=== PATIENT | female | born 1985 | race Caucasian/White ===

== ENCOUNTER 2017-09-01 09:34 | Emergency (ER) | payer MEDICAID, SELFPAY ==
[2017-09-01 09:35] VITALS: BP 135/82; PULSE 98; RESP 17; TEMP 36.8; O2SAT 95; BMI 41.6
[2017-09-01] MEDS: 0.9% Normal Saline 1,000 ML 500 ML IV ×2 (10:42→11:43)
[2017-09-01] MEDS: Ondansetron 4 MG/2 ML Vial IV ×2 (10:42→12:52)
[2017-09-01 10:46] LABS: Absolute Lymphocyte Count 0.44 X10^3/ul (0.83-4.51); Absolute Neutrophil Count 6.7 X10^3/uL (2.0-7.7); Basophil# 0.01 X10^3/uL; Basophil% 0.1 % (0-1); Eosinophil# 0.03 X10^3/uL; Eosinophils% 0.4 % (0-5); Hematocrit 40.9 % (37-47); Hemoglobin 14.5 g/dl (12.0-15.0); Lymphocyte # 0.44 X10^3/ul (4.0); Lymphocyte % 5.8 % (19-41); Mean Corp Hgb Conc 35.5 g/gl (32-36); Mean Corpuscular Hgb 33.3 pg (27.0-32.0); Mean Corpuscular Volume 93.8 fL (81-99); Mean Platelet Vol. 10.1 fl (6.2-12.0); Monocyte# 0.45 X10^3/uL; Monocyte% 5.9 % (0-10); Neutrophil # 6.68 X10^3/uL (2.7-7.7); Neutrophil % 87.5 % (47-70); Platelet Count 168 K/mm3 (150-450); RBC Distribution Width CV 12.8 % (11.6-14.6); RBC Distribution Width SD 43.6 fl (35.1-43.9); Red Blood Count 4.36 M/mm3 (4.2-5.4); White Blood Count 7.6 K/mm3 (4.4-11.0)
[2017-09-01 10:47] LABS: Differential Indicated SCAN CRITERIA MET; POSITIVE COUNT NO; POSITIVE DIFFERENTIAL YES; POSITIVE MORPHOLOGY NO
[2017-09-01 11:01] LABS: Anion Gap 12 (5-15); BUN 5 mg/dL (7-18); Calcium,Total 8.5 mg/dL (8.5-10.1); Chloride 104 mmol/L (98-107); Creatinine, Serum 0.63 mg/dL (0.55-1.02); EST Glomerular Filtration Rate 119 mL/min (>60); Est Glom Filt Rate - Afr Amer 144 mL/min (>60); Estimated Creatinine Clearance 118.56 ml/min; Glucose 83 mg/dL (74-106); Lipase 95 U/L (73-393); Potassium 3.2 mmol/L (3.5-5.1); Sodium Level 137 mmol/L (136-145)
[2017-09-01 11:05] LABS: AST(SGOT) 10 U/L (15-37); Alanine Aminotransfer ALT/SGPT 15 U/L (13-56); Albumin, Serum 3.5 g/dL (3.2-5.0); Alkaline Phosphatase 71 U/L (45-117); Bilirubin, Direct 0.16 mg/dL (0.00-0.30); Globulin 3.7 g/dL (2.2-4.2); Protein, Total 7.2 g/dL (6.4-8.2)
[2017-09-01 11:19] LABS: Differential Comment SCANNED
[2017-09-01 11:40] LABS: Bacteria 0 SEEN /hpf (None Seen); Red Blood Cells-Urine 0 SEEN /hpf (0-5)
[2017-09-01 11:42] VITALS: BP 114/60; PULSE 77; RESP 16; O2SAT 100
[2017-09-01 11:42] LABS: Color, Urine Yellow (Yellow); Glucose, Dipstick Normal (Normal); Leukocyte Esterase-Dipstick 25 /ul (Negative); Nitrite-Dipstick Negative (Negative); Occult Blood-Urine 25 /ul (Negative); Protein-Dipstick 30 mg/dl (Negative); Specific Gravity, Urine 1.025 (1.002-1.030); Urine Bilirubin Dipstick Negative (Negative); Urine Clarity Clear (Clear); Urine Urobilinogen 1 mg/dl (Normal)
[2017-09-01 11:47] LABS: Ketone-Dipstick 150 mg/dl (Negative)
--- NOTE | 2017-09-01 11:47 | ED.RN ---
KETONES ELEVATED, MD AND PRIMARY NURSE AWARE.
[2017-09-01 11:52] LABS: Mucous, Urine 2+ /hpf (<or=2+); Squamous Epithelial Cells - UA 0-5 SEEN /hpf (5-10); White Blood Cells 0-5 SEEN /hpf (0-5)
--- NOTE | 2017-09-01 13:51 | ED.DCSUM_ITS ---
- ER Visit Summary Date of Service: 09/01/17 Chief Complaint: [] Vomiting and diarrhea for 5 days 14 weeks uncomplicated History of Present Illness: The patient is a 31 F [] 14 weeks uncomplicated , who reports she has had related vomiting such as morning sickness for the last 5 days her vomiting is also been associate with diarrhea runny watery stool. She has not been exposed anyone has been ill no bad food. She states she has difficulty taking p.o. despite use of her oral Phenergan. She is no history of GI elements she has no pelvic pain or vaginal bleeding she had a recent ultrasound that showed appropriately dated IUP no other acute gross abnormalities prior pregnancies were complicated by vomiting Physical Examination: [] Distress her HEENT exam is unremarkable mucous members are moist the neck is supple lungs are clear heart tones are normal abdomen soft nontender upper lower extremities unremarkable backs unremarkable skin is normal clinically she looks well she does have intermittent spitting up of clear mucus Test Results: [] Emergency Department Course and Treatment: [] Obtain screening labs or signs of dehydration on the UA she received 2 L of fluids her labs are otherwise generally unremarkable see those reports, she is feeling better she has taken 2 or 3 cups of ice without difficulty she is agreeable to discharge home to continue to use Zofran fluids and follow-up with her pharmaceutical assistant next few days Treatment Plan: [] Disposition: [] Home stable Impression: [] 14 weeks , intermittent vomiting and diarrhea improved This note was generated with [employer] dictation software. It may contain incorrect words, spelling, and punctuation that were not noted in review of the chart prior to signing ED Disposition - Plan for ED Patient: Chief Complaint: Nausea/Vomiting Referrals: Care Physician,No Primary [Primary Care Provider] -
--- NOTE | 2017-09-01 13:51 | ED.DEP ---
ED Disposition - Plan for ED Patient: Chief Complaint: Nausea/Vomiting Instructions: ED Nausea Vomiting Prescriptions: Ondansetron [Zofran Odt] 4 mg PO Q8H PRN PRN #10 tab PRN Reason: Nausea Referrals: Care Physician,No Primary [Primary Care Provider] - Additional Instructions: Please make sure you follow-up with her doctors in the next few days return for worsening symptoms
[2017-09-01 14:12] VITALS: BP 110/70; PULSE 60; RESP 12; O2SAT 100
== END 2017-09-01 14:13 | disposition home or self-care (01) ==
LOC: ED 10:11
PROVIDERS: Emergency Provider Emergency Medicine
DX: O21.8 Other vomiting complicating pregnancy (principal); O26.892 Other specified pregnancy related conditions, second trimester; R19.7 Diarrhea, unspecified; Z3A.14 14 weeks gestation of pregnancy
CPT/HCPCS: 80048; 80076; 81001; 83690; 85025; 96361; 96374; 96376; 99283; J7030; J2405

== ENCOUNTER 2017-09-01 19:18 | Emergency (ER) | payer MEDICAID, SELFPAY ==
[2017-09-01 19:18] VITALS: BP 133/79; PULSE 100; RESP 16; TEMP 37.5; O2SAT 99; BMI 40.7
--- NOTE | 2017-09-01 19:59 | ED.DCSUM_ITS ---
- ER Visit Summary Date of Service: 09/01/17 Chief Complaint: Vaginal bleeding History of Present Illness: The patient is a 31 F who is 14 weeks presents for vaginal bleeding 1 hour prior to presentation. Patient was seen in the emergency department earlier today for 4-5 days of abdominal pain, nausea , vomiting and diarrhea. She states she has had associated fever and chills. She was given fluids and had a workup done earlier today. At that time she had denied any vaginal bleeding or pelvic cramping. She states that she got home and then had an episode during urination where a large amount of blood with clots came out of her vagina. She states that she still does not feel well with the nausea, vomiting and diarrhea since she was seen this morning. Patient is on Zofran and vitamins. She denies any drug use, alcohol use or tobacco use. Physical Examination: Vital signs: afebrile, hemodynamically stable, no hypoxia on room air General: well nourished, well developed, in no distress Skin: warm, dry, no rash, no pallor HEENT: normocephalic and atraumatic; PERRL, EOMI, moist mucous membranes Cardiovascular: regular rate and rhythm without murmurs, no peripheral edema, 2 + pulses all distal extremities Respiratory: No increased work of breathing, lungs are clear to auscultation bilaterally, no rales, rhonchi or wheezing Abdominal: Abdomen is soft, mild diffusely tender with normoactive bowel sounds , no guarding or rebound, no masses MSK: Moves all extremities, no deformities, normal strength Neuro: Awake and alert, oriented ?4. No facial droop, sensation and motor function intact and symmetric Test Results: [] Emergency Department Course and Treatment: Patient's prior visit today was reviewed, and blood work was performed at that time. Patient had no leukocytosis or electrolyte derangements. Urine was negative for infection or bacteria. Because of this, blood work and urine were not repeated. A chart review showed that patient is Rh+. Thus no Rhogam is needed. Patient was given IV hydration and Phenergan for her symptoms. The pelvic exam did show mild bleeding without clots or tissue from the cervical os, with a closed os consistent with a threatened . Bedside US showed IUP with movement and FHR 188. Patient was discussed with Dr. Larose, patient visited the emergency department twice today with related concerns. he requested that the patient call the office on Sunday morning to arrange for a follow-up visit for next week. Patient was reevaluated and had had no vomiting or diarrhea while in the emergency department. She was given a prescription for Phenergan for home and is to follow-up on Sunday as directed. Patient agreed with this plan was discharged home. Treatment Plan: [] Disposition: [] Impression: Threatened This note was generated with [employer] dictation software. It may contain incorrect words, spelling, and punctuation that were not noted in review of the chart prior to signing ED Disposition - Plan for ED Patient: Disposition: Home or Assisted Living Chief Complaint: Vag Bld, Preg Instructions: ED Miscarriage Poss Prescriptions: ProMETHAzine [Phenergan] 25 mg PO Q6H PRN PRN #15 tab PRN Reason: Nausea Referrals: Marcia Vale MD [STAFF PHYSICIAN] - 2 Days Care Physician,No Primary [Primary Care Provider] - Additional Instructions: The ultrasound performed at bedside while you were in the emergency department showed your baby moving with a heart rate of between 170 and 188. Please follow-up with your OB doctor on Sunday. If you have any worsening of your condition in the meantime or any further concerns, he may return to the emergency department for another evaluation.
[2017-09-01] MEDS: Lactated Ringers 1,000 ML 999 ML IV (20:29)
--- NOTE | 2017-09-01 21:44 | ED.DEP ---
ED Disposition - Plan for ED Patient: Disposition: Home or Assisted Living Chief Complaint: Vag Bld, Preg Instructions: ED Miscarriage Poss Referrals: Care Physician,No Primary [Primary Care Provider] - Marcia Vale MD [STAFF PHYSICIAN] - 2 Days Additional Instructions: The ultrasound performed at bedside while you were in the emergency department showed your baby moving with a heart rate of between 170 and 188. Please follow-up with your OB doctor on Sunday. If you have any worsening of your condition in the meantime or any further concerns, he may return to the emergency department for another evaluation.
[2017-09-01 21:58] VITALS: PULSE 88; RESP 16; O2SAT 94
== END 2017-09-01 21:59 | disposition home or self-care (01) ==
PROVIDERS: Emergency Provider Emergency Medicine
DX: O20.0 Threatened abortion (principal); O21.8 Other vomiting complicating pregnancy; O26.892 Other specified pregnancy related conditions, second trimester; R19.7 Diarrhea, unspecified; O99.212 Obesity complicating pregnancy, second trimester; Z3A.14 14 weeks gestation of pregnancy
CPT/HCPCS: 80048; 80076; 81001; 83690; 85025; 96361; 96374; 96376; 99283; J7030; J7120; A4216; J2405

== ENCOUNTER 2017-09-03 11:59 | Inpatient (IN) | payer MEDICAID, SELFPAY ==
[2017-09-03 12:00] VITALS: BP 141/87; PULSE 90; RESP 16; TEMP 37; O2SAT 96; BMI 41.1
--- NOTE | 2017-09-03 12:48 | RAD_ITS ---
STUDY: X-RAY CHEST REASON FOR EXAM: Female, 31 years old. Nausea vomiting and diarrhea for 2 days. Patient is . The patient was shielded appropriately. TECHNIQUE: Single AP portable view of the chest. COMPARISON: None. FINDINGS: The lungs are clear and expanded. There is no demonstrated pleural abnormality. Normal size heart. Normal mediastinum and cristiana. Normal visualized pulmonary arteries. Normal visualized aortic arch and descending thoracic aorta. Normal visualized thoracic spine. Normal visualized ribs, clavicles, and shoulders. There is no demonstrated abnormality of the visualized soft tissue structures of the upper abdomen. RAD/Chest 1 View (Portable) IMPRESSION: Normal x-ray examination of the chest. Electronically Signed: Rodrigo Lieberman MD at 13:15 EST Tel [phone], Service support ,
[2017-09-03 13:05] LABS: Absolute Lymphocyte Count 0.61 X10^3/ul (0.83-4.51); Absolute Neutrophil Count 4.3 X10^3/uL (2.0-7.7); Basophil# 0.02 X10^3/uL; Basophil% 0.4 % (0-1); Hematocrit 39.2 % (37-47); Hemoglobin 14.1 g/dl (12.0-15.0); Lymphocyte # 0.61 X10^3/ul (4.0); Lymphocyte % 11.3 % (19-41); Mean Corpuscular Hgb 33.3 pg (27.0-32.0); Mean Corpuscular Volume 92.5 fL (81-99); Mean Platelet Vol. 10.5 fl (6.2-12.0); Monocyte# 0.48 X10^3/uL; Monocyte% 8.9 % (0-10); Neutrophil # 4.26 X10^3/uL (2.7-7.7); Neutrophil % 79.2 % (47-70); Platelet Count 150 K/mm3 (150-450); RBC Distribution Width CV 12.7 % (11.6-14.6); RBC Distribution Width SD 41.9 fl (35.1-43.9); Red Blood Count 4.24 M/mm3 (4.2-5.4); White Blood Count 5.4 K/mm3 (4.4-11.0)
[2017-09-03 13:06] LABS: POSITIVE COUNT NO; POSITIVE DIFFERENTIAL NO; POSITIVE MORPHOLOGY NO
[2017-09-03] MEDS: 0.9% Normal Saline 1,000 ML 1000 ML IV ×2 (13:13→14:25)
[2017-09-03 13:14] LABS: Anion Gap 12 (5-15); BUN 5 mg/dL (7-18); BUN/Creat Ratio 9.3 RATIO (10-20); Calcium,Total 8.1 mg/dL (8.5-10.1); Chloride 105 mmol/L (98-107); Creatinine, Serum 0.54 mg/dL (0.55-1.02); EST Glomerular Filtration Rate 142 mL/min (>60); Est Glom Filt Rate - Afr Amer 172 mL/min (>60); Estimated Creatinine Clearance 138.32 ml/min; Glucose 73 mg/dL (74-106); Potassium 3.2 mmol/L (3.5-5.1); Sodium Level 135 mmol/L (136-145)
[2017-09-03 14:26] VITALS: BP 116/69; PULSE 74; RESP 14; O2SAT 98
[2017-09-03 14:42] LABS: Mucous, Urine 0 SEEN /hpf (<or=2+)
[2017-09-03 14:46] LABS: Color, Urine Yellow (Yellow); Glucose, Dipstick Normal (Normal); Leukocyte Esterase-Dipstick 25 /ul (Negative); Nitrite-Dipstick Negative (Negative); Occult Blood-Urine 25 /ul (Negative); Protein-Dipstick 30 mg/dl (Negative); Specific Gravity, Urine 1.025 (1.002-1.030); Urine Bilirubin Dipstick Negative (Negative); Urine Clarity Sl. Cloudy (Clear); Urine Urobilinogen Normal (Normal)
[2017-09-03 14:48] LABS: Ketone-Dipstick 150 mg/dl (Negative)
[2017-09-03 14:53] LABS: Red Blood Cells-Urine 0-5 SEEN /hpf (0-5); Squamous Epithelial Cells - UA 10-25 SEEN /hpf (5-10); White Blood Cells 0-5 SEEN /hpf (0-5)
[2017-09-03 14:54] LABS: Bacteria 1+ /hpf (None Seen)
--- NOTE | 2017-09-03 15:37 | ED.DCSUM_ITS ---
- ER Visit Summary Date of Service: 09/03/17 Chief Complaint: Vomiting and diarrhea History of Present Illness: The patient is a 31 F presenting with vomiting and diarrhea ?9 days. She states she is unable to keep anything down. She was seen in the ED on Sunday morning was given IV fluids. She was seen again later that evening for vaginal bleeding in . She is 15 weeks . She states her daughter was diagnosed with influenza. She has been taking Tylenol, Phenergan, Zofran at home. She complains of continued vomiting , cough and body aches. She was seen by Dr. Cornelius Henderson today. She states the heart tones were normal in her office. Physical Examination: Vitals are stable. Patient is afebrile. Alert no acute distress. HEENT exam is unremarkable. Neck is supple. Lungs are clear and equal bilaterally. Heart is regular rate and rhythm. Abdomen is soft nontender nondistended. Extremities are unremarkable. Skin is warm and dry. No focal neurologic deficit. Remainder of exam is unremarkable. Emergency Department Course and Treatment: Patient was given IV fluids, Zofran, Phenergan. She continues to have nausea and vomiting. She had 2 further episodes of vomiting in the emergency department. CBC normal. Chemistries show CO2 18, glucose 73. Urinalysis unremarkable. Due to her cough, chest x- ray was obtained with shielding which shows no acute process. She has been exposed to influenza and I suspect that she has influenza. We currently have no rapid flu test available. Due to her intractable vomiting, discussed with Dr Cornelius Henderson for admission. Impression: Vomiting and diarrhea; ; suspect influenza This note was generated with [employer] dictation software. It may contain incorrect words, spelling, and punctuation that were not noted in review of the chart prior to signing ED Disposition - Plan for ED Patient: Chief Complaint: Nausea/Vomiting/Diarrhea Referrals: Care Physician,No Primary [Primary Care Provider] -
[2017-09-03] MEDS: Oseltamivir Phosphate 75 MG Capsule PO (16:18)
[2017-09-03] MEDS: 0.9% Normal Saline 1,000 ML 999 ML IV (16:19)
[2017-09-03 16:25] VITALS: BMI 41.1
[2017-09-03 16:35] VITALS: BP 138/74; PULSE 84; RESP 16; TEMP 36.9; O2SAT 100
[2017-09-03 17:59] VITALS: BMI 42.3
[2017-09-03 18:06] VITALS: BP 122/65; PULSE 81; RESP 18; TEMP 37.1; O2SAT 98
--- NOTE | 2017-09-03 18:52 | US_ITS ---
STUDY: SECOND AND THIRD TRIMESTER OBSTETRICAL ULTRASOUND - LIMITED REASON FOR EXAM: Female, 31 years old. Bleeding LMP: PRIOR ULTRASOUND: None. TECHNIQUE: Transabdominal ultrasound evaluation was performed. FINDINGS: There is a single intrauterine fetus. The fetus is in a transverse presentation. There is demonstrated cardiac activity with a heart rate of 147 bpm. There is a normal amniotic fluid volume. The largest amniotic fluid pocket measures 6.4 cm.. The placenta is low-lying There are Grade 0 placental changes. The cervix measures 4.5 cm in length. BIOMETRY: BPD: 2.6 cm: 14 weeks, 4 days HC: 10.72 cm: 15 weeks, 1 days AC: 9.1 cm: 15 weeks, 3 days FL: 1.69 cm: 15 weeks, 0 days Age by LMP: 15 weeks, 0 days. TIARA by LMP: February 25, 2018. age by prior US: weeks, days. TIARA by prior US: . age by current US: 15 weeks, 1 days. TIARA by current US: February 24, 2018. Estimated weight: 116 grams, +/- 17 grams, 47 percentile. US/OB Limited With Biometrics IMPRESSION: Viable intrauterine gestation approximately 15 weeks gestational age with fetus currently in transverse lie. Low-lying placenta which should be followed up sonographically Electronically Signed: Richard Cheng MD at 23:45 EST , Service support ,
[2017-09-03] MEDS: 0.9% NaCl Peripheral Flush Adult/Peds IV (18:58)
[2017-09-03] MEDS: Potassium Chloride 40 MEQ in Dextrose 5%/0.9% NaCl 1,000 ML 250 MEQ IV (18:58)
--- NOTE | 2017-09-03 19:30 | NURSING ---
this RN in to room to perform FHT's, patient was getting bedside US when RN entered. FHR per US was 147. Reported info to Dr Cornelius Henderson, states do not need another FHT until dayshift tomorrow.
[2017-09-03 20:36] VITALS: BP 131/80; PULSE 91; RESP 18; TEMP 36.7; O2SAT 99
[2017-09-03 20:45] LABS: Glucose, Dipstick Normal (Normal); Leukocyte Esterase-Dipstick 25 /ul (Negative); Nitrite-Dipstick Negative (Negative); Occult Blood-Urine 250 /ul (Negative); Protein-Dipstick 100 mg/dl (Negative); Specific Gravity, Urine 1.015 (1.002-1.030); Urine Bilirubin Dipstick Negative (Negative); Urine Clarity Cloudy (Clear); Urine Urobilinogen Normal (Normal)
[2017-09-03 20:45] LABS: Hematocrit 35.8 % (37-47); Hemoglobin 12.5 g/dl (12.0-15.0); Mean Corp Hgb Conc 34.9 g/gl (32-36); Mean Corpuscular Hgb 32.6 pg (27.0-32.0); Mean Corpuscular Volume 93.5 fL (81-99); Mean Platelet Vol. 10.5 fl (6.2-12.0); Platelet Count 127 K/mm3 (150-450); RBC Distribution Width CV 12.9 % (11.6-14.6); RBC Distribution Width SD 43.3 fl (35.1-43.9); Red Blood Count 3.83 M/mm3 (4.2-5.4); White Blood Count 3.6 K/mm3 (4.4-11.0)
[2017-09-03 20:48] LABS: Color, Urine SEE COMMENT BELOW (Yellow); Ketone-Dipstick 150 mg/dl (Negative)
[2017-09-03 20:52] LABS: Anion Gap 12 (5-15); BUN 5 mg/dL (7-18); BUN/Creat Ratio 13.4 RATIO (10-20); Calcium,Total 7.3 mg/dL (8.5-10.1); Chloride 110 mmol/L (98-107); Creatinine, Serum 0.37 mg/dL (0.55-1.02); EST Glomerular Filtration Rate 216 mL/min (>60); Est Glom Filt Rate - Afr Amer 262 mL/min (>60); Estimated Creatinine Clearance 201.88 ml/min; Glucose 68 mg/dL (74-106); Scan Indicated on CBC? Y/N NO; Sodium Level 137 mmol/L (136-145)
[2017-09-03] MEDS: Sodium Citrate/Citric Acid 30 ML UDC PO (20:58)
[2017-09-03] MEDS: Phenol/Sodium Phenolate 180ML 3 SPRAY MM (20:58)
--- NOTE | 2017-09-03 21:15 | NURSING ---
Marlene in Respiratory Therapy notified that Respiratory panel is ordered.
--- NOTE | 2017-09-03 22:21 | PCM.HP.OB ---
- Problem List (1) Gastroenteritis Status: Acute (2) Threatened in second trimester Status: Acute (3) 15 weeks gestation of Status: Acute (4) Dehydration Status: Acute (5) Hypokalemia Status: Acute History Date of Admission: 09/03/17 Final TIARA: 02/23/18 Final TIARA Source: US <20 weeks Gestational age: 15 Weeks and 3 Days History of this : 31yo 3 para 1999 at 15 2/7 weeks gestational age sent from the office with nausea, vomiting and ketonuria to the ED for evaluation. Patient relates onset of flu-like symptoms 8 days ago with myalgia, nausea, vomiting with worsening and diarrhea starting 4 days ago. She had fever with Tm to 102 on 08/31/17. She has been seen in the ER on 09/01/17 for symptoms and received IV fluid hydration and discharged to home. She returned to ER later that day with complaint of vaginal bleeding and bedside ultrasound in ER showed normal heart rate. She reports continued vaginal bleeding bleeding. I examined her in my office earlier today, there was no active vaginal bleeding, scant brown tinged mucus and cervix appeared closed. Denies cramping or contraction like pain. She has upper abdominal pain, back pain and muscle aches. Her daughter was diagnosed with influenza and superimposed pneumonia yesterday. Pertinent Past Medical History: Obesity Nausea and vomiting of Allergies No Known Allergies Allergy (Verified 09/03/17 12:16) Current Medications Acetaminophen (Tylenol) 1,000 mg PO Q8H PRN PRN PRN Reason: PAIN Potassium Chloride 40 meq/ (Dextrose/Sodium Chloride) 1,020 mls @ 250 mls/hr IV .Q4H5M DASHA Stop: 09/04/17 02:22 Last Admin: 09/03/17 18:58 Dose: 250 mls/hr Potassium Chloride 40 meq/Multivitamins 10 ml/ Dextrose/Sodium Chloride 1,030 mls @ 250 mls/hr IV Q24H DASHA Famotidine 20 mg/ Sodium (Chloride) 10 mls @ 300 mls/hr IV Q12 DASHA Loperamide HCl (Imodium) 2 mg PO Q6H PRN PRN PRN Reason: Diarrhea Nutritional Formula (Lactose Free) (Ensure Clear) 120 ml PO 4X/DAY DASHA Phenol/Menthol (Chloraseptic (Bkc)) 3 spray MM Q2H PRN PRN PRN Reason: SORE THROAT Last Admin: 09/03/17 20:58 Dose: 3 spray Promethazine HCl (Phenergan (Ll)) 6.25 mg IV Q4H PRN PRN PRN Reason: NAUSEA/VOMITING Last Admin: 09/03/17 18:59 Dose: 6.25 mg Sodium Chloride () 5 - 30 ml IV UD PRN PRN Reason: SALINE FLUSH Last Admin: 09/03/17 18:58 Dose: 10 ml Smoking Status: Former smoker Alcohol: None Drug Use: none Number of Fetus(es): 1 Review of Systems Constitutional: Reports: Anorexia, Chills, Fever, Night Sweats, Malaise, Weakness, Weight Change, Fatigue Cardiovascular: Reports: Light Headedness. Denies: Chest Pain, Edema Respiratory: Denies: Cough, Shortness of Breath Gastrointestinal: Reports: Abdominal Pain, Diarrhea, Nausea, Vomiting. Denies: Constipation Genitourinary: Reports: Hematuria. Denies: Dysuria, Frequency Gynecological: Reports: Vaginal bleeding, - - reports large puddle of blood on bed pad on arrival to floor - approximately 8 in wide by pt account Musculoskeletal: Reports: Back Pain, Leg Pain, Muscle pain Psychiatric: Reports: Anxiety Physical Exam Vitals: Vital Signs Temp Pulse Resp BP Pulse Ox 98.1 F 91 18 131/80 H 99 09/03/17 20:36 09/03/17 20:36 09/03/17 20:36 09/03/17 20:36 09/03/17 20:36 General: Alert, Oriented x3, Cooperative, No apparent distress Cardiovascular: Regular rate, Regular Rhythm, Normal S1, Normal S2 Lungs: Clear to auscultation, Normal air movement Abdomen: Soft, Non Tender, Non-Distended, Gravid, - - FHR wnl in office Extremities:: No edema Assessment/Plan Active and Suspected Problems Gastroenteritis (Acute) Threatened in second trimester (Acute) 15 weeks gestation of (Acute) Dehydration (Acute) Hypokalemia (Acute) 31yo with dehydration due to gastroenteritis, possibly influenza, with threatened -Admit for IV fluid hydration and electrolyte repletion -CXR negative, Influenza swab pending. Will defer Tamiflu as pt symptomatic for at least 4-5 days. -Antiemetics prn -Office exam c/w threatened Ab, no evidence of heavy bleeding on bedside exam. OB ultrasound ordered for biometry and r/o obstetric bleed.
[2017-09-03] MEDS: Acetaminophen 500 MG Tablet 1000 MG PO (22:26)
[2017-09-03] MEDS: Loperamide 2 MG Capsule PO (22:33)
[2017-09-04 02:09] VITALS: BP 133/81; PULSE 77; RESP 18; TEMP 36.4; O2SAT 99
[2017-09-04] MEDS: guaiFENesin 10 ML UDC (200MG/10ML) PO ×5 (03:39→20:27)
[2017-09-04] MEDS: Potassium Chloride 40 MEQ in Dextrose 5%/0.9% NaCl 1,000 ML 250 MEQ IV (03:40)
[2017-09-04 06:38] LABS: Absolute Lymphocyte Count 1.24 X10^3/ul (0.83-4.51); Absolute Neutrophil Count 1.6 X10^3/uL (2.0-7.7); Basophil# 0.01 X10^3/uL; Basophil% 0.3 % (0-1); Eosinophil# 0.03 X10^3/uL; Hemoglobin 12.6 g/dl (12.0-15.0); Lymphocyte # 1.24 X10^3/ul (4.0); Lymphocyte % 40.1 % (19-41); Mean Corpuscular Hgb 32.7 pg (27.0-32.0); Mean Corpuscular Volume 93.5 fL (81-99); Monocyte# 0.25 X10^3/uL; Monocyte% 8.1 % (0-10); Neutrophil # 1.56 X10^3/uL (2.7-7.7); Neutrophil % 50.5 % (47-70); Platelet Count 143 K/mm3 (150-450); RBC Distribution Width CV 13.1 % (11.6-14.6); RBC Distribution Width SD 44.1 fl (35.1-43.9); Red Blood Count 3.85 M/mm3 (4.2-5.4); White Blood Count 3.1 K/mm3 (4.4-11.0)
[2017-09-04] MEDS: Acetaminophen 500 MG Tablet 1000 MG PO ×2 (06:38→16:26)
[2017-09-04 06:46] LABS: POSITIVE COUNT NO; POSITIVE DIFFERENTIAL NO; POSITIVE MORPHOLOGY NO
[2017-09-04 06:54] LABS: Anion Gap 8 (5-15); BUN 2 mg/dL (7-18); BUN/Creat Ratio 4.1 RATIO (10-20); Calcium,Total 7.6 mg/dL (8.5-10.1); Chloride 111 mmol/L (98-107); Creatinine, Serum 0.48 mg/dL (0.55-1.02); EST Glomerular Filtration Rate 161 mL/min (>60); Est Glom Filt Rate - Afr Amer 194 mL/min (>60); Estimated Creatinine Clearance 155.61 ml/min; Glucose 87 mg/dL (74-106); Potassium 3.4 mmol/L (3.5-5.1); Sodium Level 138 mmol/L (136-145)
[2017-09-04] MEDS: 0.9% NaCl Peripheral Flush Adult/Peds IV ×4 (07:52→22:45)
[2017-09-04 07:59] VITALS: BP 113/66; PULSE 81; RESP 18; TEMP 36.6; O2SAT 98
--- NOTE | 2017-09-04 08:21 | NURSING ---
Dr. Marcia Vale notified of + influenza as well as result of US that states pt has low lying placenta and recommends follow up sonographically. states it is too late in sickness to start tamiflu and will not be beneficial. States that follow up ultrasound will be completed in [address] Antonio covering for Dr. Marcia Vale and on unit assessing patient at this time.
--- NOTE | 2017-09-04 08:32 | PCM.PROGNOTE ---
Patient Problems: Active and Suspected Problems Gastroenteritis (Acute) Threatened in second trimester (Acute) 15 weeks gestation of (Acute) Dehydration (Acute) Hypokalemia (Acute) Subjective: HD #2 15 3/7 wk EGA with N/V hyperemesis unresponsive to Zofran PO and both PO and CO Promethazine. Tested positive for Flu, but the sx started 8 d ago + And too late for tamifu CXR neg. Objective: Sitting up in bed. States tried various clears and has an assortment of empty containers on her tray, but states still vomits anything she tries. States some continued bleeding after vomiting and coughing episodes. Also c/o soreness in abdomen and back d/t N/V/coughing - Physical Exam General: Alert, Oriented x3, Cooperative, No apparent distress HEENT: Atraumatic, PERRLA Neck: Supple Abdomen: Soft - FHT documented on sono last night. Planning FHT check today, q shift. SONO last PM: viable IUP and CWD. low lying placenta but no mention of any placental pathology Neurological: Cranial nerves II-XII grossly intact Psych/Mental Status: Normal Affect Vital Signs Temp Pulse Resp BP Pulse Ox 97.8 F 81 18 113/66 98 09/04/17 07:59 09/04/17 07:59 09/04/17 07:59 09/04/17 07:59 09/04/17 07:59 Oxygen Delivery Method Room Air Weight: 115.4 kg Body Mass Index (BMI) 42.3 Intake and Output for Last 24 Hours 09/02/17 09/03/17 09/04/17 23:59 23:59 23:59 Intake Total 3580 / 3580 Output Total 1500 / 1500 Balance 2079 / 2079 Microbiology Past 72 Hours 09/03/17 22:50 Respiratory Panel (PCR) - Final Mucosa - Nose Influenza A (Subtype H3) Laboratory Tests Past 24 Hrs 09/03/17 09/03/17 09/03/17 19:17 19:17 20:35 WBC 3.6 L RBC 3.83 L Hgb 12.5 Hct 35.8 L MCV 93.5 MCH 32.6 H MCHC 34.9 RDW 12.9 RDW Differential 43.3 Plt Count 127 L MPV 10.5 Immature Gran % (Auto) Neut % (Auto) Lymph % (Auto) [place] % (Auto) Eos % (Auto) Baso % (Auto) Absolute Neuts (auto) Absolute Lymphs (auto) Total Counted Sodium 137 Potassium 3.0 L Chloride 110 H Carbon Dioxide 15.0 L Anion Gap 12 BUN 5 L Creatinine 0.37 L Estim Creat Clear Calc 201.88 Est GFR (MDRD) Af Amer 262 Est GFR (MDRD) Non-Af 216 BUN/Creatinine Ratio 13.4 Glucose 68 L Calcium 7.3 L Urine Color SEE COMMENT BELOW Urine Clarity Cloudy Urine pH 6.0 Ur Specific [place] 1.015 Urine Protein 100 H Urine Glucose (UA) Normal Urine Ketones 150 H Urine Occult Blood 250 H Urine Nitrite Negative Urine Bilirubin Negative Urine Urobilinogen Normal Ur Leukocyte Esterase 25 H 09/04/17 09/04/17 06:12 06:12 WBC 3.1 L RBC 3.85 L Hgb 12.6 Hct 36.0 L MCV 93.5 MCH 32.7 H MCHC 35.0 RDW 13.1 RDW Differential 44.1 H Plt Count 143 L MPV 10.0 Immature Gran % (Auto) 0.000 Neut % (Auto) 50.5 Lymph % (Auto) 40.1 [place] % (Auto) 8.1 Eos % (Auto) 1.0 Baso % (Auto) 0.3 Absolute Neuts (auto) 1.6 L Absolute Lymphs (auto) 1.24 Total Counted Not Reportable Sodium 138 Potassium 3.4 L Chloride 111 H Carbon Dioxide 19.0 L Anion Gap 8 BUN 2 L Creatinine 0.48 L Estim Creat Clear Calc 155.61 Est GFR (MDRD) Af Amer 194 Est GFR (MDRD) Non-Af 161 BUN/Creatinine Ratio 4.1 L Glucose 87 Calcium 7.6 L Urine Color Urine Clarity Urine pH Ur Specific [place] Urine Protein Urine Glucose (UA) Urine Ketones Urine Occult Blood Urine Nitrite Urine Bilirubin Urine Urobilinogen Ur Leukocyte Esterase Assessment/Plan Active and Suspected Problems Gastroenteritis (Acute) Threatened in second trimester (Acute) 15 weeks gestation of (Acute) Dehydration (Acute) Hypokalemia (Acute) 15 3/7 wk EGA -- intermittent bleeding d/t low lying placenta and persistent N/V and cough. Hgb stable. -- Viable iup and CWD noted on sono yesterday. continue daily wt checks. N/V/ hyperemesis of -- failed zofran and failed two forms of promethazine -- consult [facility] for home health , consider SC Zofran pump as significnat wt loss of 17-20 # documented and failure of CO, PO meds to control symptoms -- repeat UA this am for ketones and to assess hydration Hypokalemia --Partially corrected by IV fluids. Currently 3.4 (3.5 low normal) -- continue IV fluids. Convalescence of Flu. AFEB entire hospital stay thus far. -- Too late to treat with Tamiflu. -- Continue IV fluids and support. Antiemetics prn. -- RX given for Robitussin. Continue care in patient. Unable to dischg home yet due to persistent N/V.
--- NOTE | 2017-09-04 12:58 | NURSING ---
This RN called pharmacy and spoke with [facility] pharmacist. Notified him that patient was ordered Anusol hc cream and that only order found in computer is for suppository. Asked if cream is available- notified that hydrocortisone cream 2.5% is same medication as anusol hc and can be used.
--- NOTE | 2017-09-04 14:13 | NURSING ---
1030 This typewriter tester at bedside to check FHT's with doppler. FHT's ranged between 155-160 and regular
[2017-09-04 16:00] VITALS: BP 109/76; PULSE 82; RESP 18; TEMP 36.5; O2SAT 100
[2017-09-04 19:11] LABS: Bacteria 0 SEEN /hpf (None Seen); Mucous, Urine 0 SEEN /hpf (<or=2+); White Blood Cells 0 SEEN /hpf (0-5)
[2017-09-04 19:13] LABS: Color, Urine Yellow (Yellow); Glucose, Dipstick Normal (Normal); Ketone-Dipstick 15 mg/dl (Negative); Leukocyte Esterase-Dipstick Negative /ul (Negative); Nitrite-Dipstick Negative (Negative); Occult Blood-Urine 25 /ul (Negative); Protein-Dipstick Negative (Negative); Urine Bilirubin Dipstick Negative (Negative); Urine Clarity Sl. Cloudy (Clear); Urine Urobilinogen Normal (Normal)
[2017-09-04 19:25] LABS: Red Blood Cells-Urine 0-5 SEEN /hpf (0-5); Squamous Epithelial Cells - UA 0-5 SEEN /hpf (5-10)
[2017-09-04 20:15] VITALS: BP 106/63; PULSE 82; RESP 16; TEMP 36.8; O2SAT 97
[2017-09-05] MEDS: 0.9% NaCl Peripheral Flush Adult/Peds IV ×2 (04:09→08:26)
[2017-09-05] MEDS: guaiFENesin 10 ML UDC (200MG/10ML) PO ×2 (04:09→08:25)
[2017-09-05 04:15] VITALS: BP 108/72; PULSE 77; RESP 16; TEMP 36.7; O2SAT 99
--- NOTE | 2017-09-05 07:40 | PCM.PROGNOTE ---
Patient Problems: Active and Suspected Problems Gastroenteritis (Acute) Threatened in second trimester (Acute) 15 weeks gestation of (Acute) Dehydration (Acute) Hypokalemia (Acute) Subjective: HD#3 sitting up in bed, NAD. Conversant. Flat affect. States [facility] called her yesterday , made initial contact. Advised pt that referral made and that [facility] will be able to place SC Zofran pump on outpt basis. Remains worried that baby is not getting enough. Advised that baby's caloric intake not much and that baby is doing fine , even with pt's wt loss. Able to drink two Ensure supplements, taking po fluids. Vomited after oatmeal. - Physical Exam General: Alert, Oriented x3, Cooperative, No apparent distress HEENT: Atraumatic Psych/Mental Status: Flat Affect Vital Signs Temp Pulse Resp BP Pulse Ox 98.1 F 77 16 108/72 99 09/05/17 04:15 09/05/17 04:15 09/05/17 04:15 09/05/17 04:15 09/05/17 04:15 Oxygen Delivery Method Room Air Weight: 115.4 kg Body Mass Index (BMI) 42.3 Intake and Output for Last 24 Hours 09/03/17 09/04/17 09/05/17 23:59 23:59 23:59 Intake Total 4782 / 4782 1210 / 1210 Output Total 1500 / 1500 550 / 550 Balance 3282 / 3282 660 / 660 Microbiology Past 72 Hours 09/03/17 22:50 Respiratory Panel (PCR) - Final Mucosa - Nose Influenza A (Subtype H3) Laboratory Tests Past 24 Hrs 09/04/17 13:55 Urine Color Yellow Urine Clarity Sl. Cloudy Urine pH 6.0 Ur Specific [place] 1.010 Urine Protein Negative Urine Glucose (UA) Normal Urine Ketones 15 H Urine Occult Blood 25 H Urine Nitrite Negative Urine Bilirubin Negative Urine Urobilinogen Normal Ur Leukocyte Esterase Negative Urine RBC 0-5 SEEN Urine WBC 0 SEEN Ur Squamous Epith Cells 0-5 SEEN Urine Bacteria 0 SEEN Urine Mucus 0 SEEN Assessment/Plan Active and Suspected Problems Gastroenteritis (Acute) Threatened in second trimester (Acute) 15 weeks gestation of (Acute) Dehydration (Acute) Hypokalemia (Acute) HD#3 15 4/7 wk EGA -- some improvement in po intake. Able to tolerate some Ensure, and other liquids. Vomiting after some foods also. Persistent N/V and cough (making sx worse). N/V/ hyperemesis of -- Viable iup and CWD noted on sono continue daily wt checks. -- failed zofran and failed two forms of promethazine -- [facility] arranged for SC Zofran pump. Advised pt that [facility] will arrange placement and will be in contact with her on an ongoing basis for continued mgmt of hyperemesis Hypokalemia -- Partially corrected by IV fluids. Currently 3.4 (3.5 low normal) -- continue IV fluids until dischg. Convalescence of Flu. AFEB entire hospital stay thus far. -- Too late to treat with Tamiflu. -- Continue IV fluids and support. Antiemetics prn. -- RX given for Robitussin. -- rectal steroid cream bid for hemorrhoids d/t diarrhea. Dischg home today and will have [facility] place SC Zofran pump outpt. F/U with Dr Cornelius Henderson in ofc as scheduled, prn sooner.
--- NOTE | 2017-09-05 07:51 | PCM.DC ---
- Discharge Diagnoses Current Active Problems: Current Active and Chronic Problems Gastroenteritis (Acute) Threatened in second trimester (Acute) 15 weeks gestation of (Acute) Dehydration (Acute) Hypokalemia (Acute) You will use the following diet at home:: Regular - as tolerated. Discharge Activity: Return to Normal Activity - as tolerated. May resume sexual activity in: No Restrictions Weight Bearing Status: Weight bearing as tolerated - limit to under 25# while Call your doctor if you observe: Fever of 101 or Higher, Inability to have a bowel movement - uncontrolled nausea , vomiting. Also report if continued bleeding. Allergies/Adverse Reactions: Allergies No Known Allergies Allergy (Verified 09/03/17 12:16) Medications to take at Discharge Vits [Prenatabs FA] 1 tablet PO DAILY 07/11/17 Ondansetron [Zofran Odt] 4 mg PO Q8H PRN PRN #10 tab 09/01/17 ProMETHAzine [Phenergan] 25 mg PO Q6H PRN PRN #15 tab 09/01/17 Ranitidine [Zantac] 150 mg PO BID 09/03/17 Docusate Sodium [Colace] 100 mg PO BID #60 cap 09/05/17 Polyethylene Glycol 3350 [Miralax] 17 gm PO DAILY 30 Days #30 packet 09/05/17 The following prescriptions were given: Polyethylene Glycol 3350 [Miralax] 17 gm PO DAILY 30 Days #30 packet Docusate Sodium [Colace] 100 mg PO BID #60 cap Primary Care Physician: Care Physician,No Primary [Primary Care Provider] -
[2017-09-05 08:21] VITALS: BP 108/64; PULSE 87; RESP 18; TEMP 36.6; O2SAT 99
[2017-09-05] MEDS: Acetaminophen 500 MG Tablet 1000 MG PO (08:25)
--- NOTE | 2017-09-07 12:46 | DS.PCM_ITS ---
Discharge Date and Diagnosis Date of Admission: 09/03/17 - 15 wk hyperemesis and flu Date of Discharge: 09/05/17 - same Hospital Course and Treatment Operations: None Summary of Care Provided: The patient is a 31 year old F at 15 wk EGA presents through ED with CC of N/V/ diarrhea. Dehydration. Sx worse than normal for her in last few days. She has been ill for last 8 d and with hyperemesis of also. Multiple ER visits for same sx, and IV fluids given. Admitted for IV hydration. Testing for flu. Serial UAs to determine if dehydration and ketonuria persistent. CBC, and CMP also COURSE: IV fluids until day of dischg but by day of dischg able to tolerate liquids Tested positive for flu but too late for tamiflu to be given/ effective. 15 wk hyperemesis and 17+ lb wt loss : Referred to outpatient [facility] for SC Zofran pump given multiple hospital visits for IV hydration. Failure of outpt meds. Discharge Activity: Return to Normal Activity - as tolerated. May resume sexual activity in: No Restrictions Weight Bearing Status: Weight bearing as tolerated - limit to under 25# while Call your doctor if you observe: Fever of 101 or Higher, Inability to have a bowel movement - uncontrolled nausea , vomiting. Also report if continued bleeding. Home Medications: Medications to take at Discharge Vits [Prenatabs FA] 1 tablet PO DAILY 07/11/17 Ondansetron [Zofran Odt] 4 mg PO Q8H PRN PRN #10 tab 09/01/17 ProMETHAzine [Phenergan] 25 mg PO Q6H PRN PRN #15 tab 09/01/17 Ranitidine [Zantac] 150 mg PO BID 09/03/17 Docusate Sodium [Colace] 100 mg PO BID #60 cap 09/05/17 Polyethylene Glycol 3350 [Miralax] 17 gm PO DAILY 30 Days #30 packet 09/05/17 Following Prescrptions Were Given to Patient: Polyethylene Glycol 3350 [Miralax] 17 gm PO DAILY 30 Days #30 packet Docusate Sodium [Colace] 100 mg PO BID #60 cap Primary Care Physician: Care Physician,No Primary [Primary Care Provider] - Meaningful Use Info Meaningful Use Diagnoses (Choose all that apply): None applicable
== END 2017-09-05 08:55 | disposition home or self-care (01) | DRG 383 ==
LOC: ED 13:15 → MS2 09-04 06:09
PROVIDERS: Admitting Provider Obstetrics & Gynecology; Emergency Provider Emergency Medicine; Visit Provider Obstetrics & Gynecology
DX: O99.282 Endocrine, nutritional and metabolic diseases complicating pregnancy, second trimester (principal); Z68.41 Body mass index [BMI] 40.0-44.9, adult; E86.0 Dehydration; Z3A.15 15 weeks gestation of pregnancy; E87.6 Hypokalemia; O20.0 Threatened abortion; K52.9 Noninfective gastroenteritis and colitis, unspecified; O99.612 Diseases of the digestive system complicating pregnancy, second trimester; O99.212 Obesity complicating pregnancy, second trimester; Z87.891 Personal history of nicotine dependence; E66.9 Obesity, unspecified
CPT/HCPCS: 36415; 71045; 76816; 80048; 81001; 81002; 85025; 85027; 87633; 97802; 99284; J7030; J7040; A4216; J2405; J3490

== ENCOUNTER → 2017-09-12 15:28 | Outpatient (CLI) | payer MEDICAID, SELFPAY ==
[2017-09-12 16:19] LABS: Hematocrit 37.8 % (37-47); Mean Corp Hgb Conc 34.4 g/gl (32-36); Mean Corpuscular Hgb 32.2 pg (27.0-32.0); Mean Corpuscular Volume 93.6 fL (81-99); Mean Platelet Vol. 10.3 fl (6.2-12.0); Platelet Count 179 K/mm3 (150-450); RBC Distribution Width CV 12.7 % (11.6-14.6); RBC Distribution Width SD 43.3 fl (35.1-43.9); Red Blood Count 4.04 M/mm3 (4.2-5.4); White Blood Count 8.5 K/mm3 (4.4-11.0)
[2017-09-12 16:21] LABS: Scan Indicated on CBC? Y/N NO
[2017-09-12 16:57] LABS: ALB/GLOB Ratio 0.8 RATIO (0.9-2.4); AST(SGOT) 8 U/L (15-37); Alanine Aminotransfer ALT/SGPT 11 U/L (13-56); Albumin, Serum 3.2 g/dL (3.2-5.0); Alkaline Phosphatase 74 U/L (45-117); Anion Gap 8 (5-15); BUN 3 mg/dL (7-18); BUN/Creat Ratio 5.6 RATIO (10-20); Calcium,Total 8.7 mg/dL (8.5-10.1); Chloride 103 mmol/L (98-107); Creatinine, Serum 0.54 mg/dL (0.55-1.02); EST Glomerular Filtration Rate 142 mL/min (>60); Est Glom Filt Rate - Afr Amer 172 mL/min (>60); Globulin 3.8 g/dL (2.2-4.2); Glucose 81 mg/dL (74-106); Potassium 3.6 mmol/L (3.5-5.1); Sodium Level 137 mmol/L (136-145)
[2017-09-14 16:28] LABS: Amylase 47 U/L (25-115); Lipase 107 U/L (73-393)
== END ==
PROVIDERS: Visit Provider Obstetrics & Gynecology
DX: R19.7 Diarrhea, unspecified (principal)
CPT/HCPCS: 36415; 80053; 82150; 83690; 85027

== ENCOUNTER → 2017-09-13 08:24 | Outpatient (CLI) | payer MEDICAID, SELFPAY | PROVIDERS: Visit Provider Obstetrics & Gynecology | DX: R19.7 Diarrhea, unspecified (principal) | CPT/HCPCS: 87493; 87506 ==

== ENCOUNTER → 2017-09-17 13:25 | Outpatient (CLI) | payer MEDICAID, SELFPAY | PROVIDERS: Visit Provider Obstetrics & Gynecology | DX: Z34.82 Encounter for supervision of other normal pregnancy, second trimester (principal); N39.0 Urinary tract infection, site not specified; R19.7 Diarrhea, unspecified | CPT/HCPCS: 87086; 87088 ==

== ENCOUNTER → 2017-09-18 09:41 | Outpatient (CLI) | payer MEDICAID, SELFPAY | PROVIDERS: Visit Provider Obstetrics & Gynecology | DX: Z34.82 Encounter for supervision of other normal pregnancy, second trimester (principal); N39.0 Urinary tract infection, site not specified; R19.7 Diarrhea, unspecified | CPT/HCPCS: 82274; 87177; 87209; 87493 ==

== ENCOUNTER 2017-09-20 02:45 | Emergency (ER) | payer MEDICAID, SELFPAY ==
[2017-09-20 02:46] VITALS: BP 131/83; PULSE 105; RESP 18; TEMP 36.5; O2SAT 98; BMI 40.3
--- NOTE | 2017-09-20 02:49 | NURSING ---
Addendum entered by Opal Gao 09/20/17 02:56: 18-19 WEEKS Original Note: PT HAS BEEN SPOT BLEEDING FOR PPROX 2 WEEKS, BUT REGULAR BLEEDING STARTED LAST NIGHT AND HAS CONTINUED. NOTED WHITE DISCHARGE EARLIER IN THE EVENING.
--- NOTE | 2017-09-20 03:18 | ED.DCSUM_ITS ---
- ER Visit Summary Date of Service: 09/20/17 Chief Complaint: Vaginal bleeding History of Present Illness: The patient is a [address] Danette Henderson. She is a 17 weeks and 3 days . She reports that she has had spotting off and on for the past 2 weeks. It increased at 7 PM yesterday. She has gone through 2 pantiliners in the past 5 hours. She reports that she has sharp cramping abdominal pain on the far lateral sides of her abdomen that is 10 out of 10 at worst and 8 out of 10 currently. Physical Examination: Vitals: Stable. Afebrile. General: Well-nourished and well-developed. Head: Normocephalic atraumatic. Neck: Supple, no lymphadenopathy. No JVD. Nontender. Cardiovascular: Regular rate and rhythm. No murmurs. Respiratory: No respiratory distress. Clear to auscultation bilaterally. Abdominal: Gravid uterus. Soft, mild tenderness palpation to the far lateral part shins of her lower abdomen bilaterally, no pain at McBurney's point or in the suprapubic region, no pain in the right upper quadrant nondistended, normal bowel sounds. No guarding, rebound, or peritoneal signs. Back: Nontender. Extremities: Nontender, no edema. Skin: Normal color, no rash. Neurologic: Alert and oriented ?3. Cranial nerves II through XII are intact. Normal strength and sensation. Psych: Normal affect. Test Results: Blood type is O+. Emergency Department Course and Treatment: Bedside ultrasound shows good movement and heartbeat. Treatment Plan: The patient is discussed with Dr. Larose. She will be discharged instructions to follow-up with Dr. Cornelius Henderson 1-2 days for another exam. Return to the emergency department for any worsening symptoms. Disposition: To home in improved and stable condition. Impression: 1. Threatened . 2. Second trimester . This note was generated with Electro[employer] software. It may contain incorrect words, spelling, and punctuation that were not noted in review of the chart prior to signing ED Disposition - Plan for ED Patient: Chief Complaint: Vag Bld, Preg Instructions: Bleeding During Early Referrals: Marcia Vale MD [STAFF PHYSICIAN] - 1 Day for another exam
[2017-09-20 03:35] VITALS: RESP 16
== END 2017-09-20 03:36 | disposition home or self-care (01) ==
LOC: ED 03:27
PROVIDERS: Emergency Provider Emergency Medicine
DX: O20.0 Threatened abortion (principal); O99.332 Smoking (tobacco) complicating pregnancy, second trimester; Z3A.17 17 weeks gestation of pregnancy
CPT/HCPCS: 99282

== ENCOUNTER 2017-09-21 18:10 | Outpatient (CLI) | payer MEDICAID, SELFPAY ==
[2017-09-21 18:57] VITALS: BMI 40.6
--- NOTE | 2017-09-21 19:45 | OB.TRI.NOTE ---
History of Present Illness Date of Service: 09/21/17 Was patient seen by the physician?: Yes Reason For Visit: R/O PPROM Date of Service: 09/21/17 Final TIARA: 02/24/18 Final TIARA Source: US <20 weeks Gestational age: 17 Weeks and 5 Days Home Medications Medication Instructions Recorded Vits [Prenatabs FA] 1 tablet PO DAILY 07/11/17 Ondansetron [Zofran Odt] 4 mg PO Q8H PRN PRN #10 tab 09/01/17 ProMETHAzine [Phenergan] 25 mg PO Q6H PRN PRN #15 tab 09/01/17 Ranitidine [Zantac] 150 mg PO BID 09/03/17 Polyethylene Glycol 3350 [Miralax] 17 gm PO DAILY 30 Days #30 packet 09/05/17 Docusate Sodium [Colace] 100 mg PO PRN PRN 09/21/17 Allergies No Known Allergies Allergy (Verified 09/21/17 18:57) Physical Exam Vitals: AVSS General: Alert, Oriented x3, Cooperative, No apparent distress Cardiovascular: Regular rate, Regular Rhythm, Normal S1, Normal S2 Lungs: Clear to auscultation, Normal air movement Abdomen: Soft, Non Tender, Non-Distended, Gravid, - - SSE - pooling of blood tinged fluid; Uterus - nontender, 17w size, no adnexal tenderness, no cervical motion tenderness Extremities:: No edema Estimated gestational size: Appropriate for gestational size Cervix Dilation (cm): 0 Station: -3 Effacement (%): 0 NST - FHR Rate Baby A Baseline: 172 bpm auscultation Impression/Plan 31yo @ 17 5/7wga with leaking of fluid, h/o hyperemesis gravidarum -Exam suspicious for PPROM, fern - obscured by rbc's -CBC with diff -IV Zofran for h/o hyperemesis -ROM plus obtained, f/u results
[2017-09-21 20:14] LABS: ROM Internal Control Test YES-OK TO RESULT pt. (Internal QC)
[2017-09-21 20:16] LABS: ROM Patient Test POSITIVE (Negative)
[2017-09-21 20:53] LABS: Absolute Lymphocyte Count 1.81 X10^3/ul (0.83-4.51); Absolute Neutrophil Count 6.8 X10^3/uL (2.0-7.7); Basophil# 0.01 X10^3/uL; Basophil% 0.1 % (0-1); Eosinophil# 0.04 X10^3/uL; Eosinophils% 0.4 % (0-5); Hematocrit 34.9 % (37-47); Hemoglobin 12.2 g/dl (12.0-15.0); Lymphocyte # 1.81 X10^3/ul (4.0); Lymphocyte % 19.5 % (19-41); Mean Corpuscular Hgb 32.4 pg (27.0-32.0); Mean Corpuscular Volume 92.6 fL (81-99); Mean Platelet Vol. 9.7 fl (6.2-12.0); Monocyte# 0.59 X10^3/uL; Monocyte% 6.3 % (0-10); Neutrophil # 6.83 X10^3/uL (2.7-7.7); Neutrophil % 73.5 % (47-70); Platelet Count 164 K/mm3 (150-450); RBC Distribution Width SD 43.9 fl (35.1-43.9); Red Blood Count 3.77 M/mm3 (4.2-5.4); White Blood Count 9.3 K/mm3 (4.4-11.0)
[2017-09-21 20:54] LABS: POSITIVE COUNT NO; POSITIVE DIFFERENTIAL NO; POSITIVE MORPHOLOGY NO
== END 2017-09-21 21:45 | disposition home or self-care (01) ==
LOC: WPOUT 18:35 → WP 18:36
PROVIDERS: Visit Provider Obstetrics & Gynecology
DX: O42.912 Preterm premature rupture of membranes, unspecified as to length of time between rupture and onset of labor, second trimester (principal); Z3A.17 17 weeks gestation of pregnancy
CPT/HCPCS: 36415; 84112; 85025; 99218; G0378

== ENCOUNTER 2017-09-28 17:00 | Outpatient (CLI) | payer MEDICAID, SELFPAY ==
[2017-09-28 17:33] VITALS: BMI 38.9
[2017-09-28 17:40] LABS: Hemoglobin 11.9 g/dl (12.0-15.0); Mean Corpuscular Hgb 32.2 pg (27.0-32.0); Mean Corpuscular Volume 94.6 fL (81-99); Mean Platelet Vol. 9.5 fl (6.2-12.0); Platelet Count 203 K/mm3 (150-450); RBC Distribution Width CV 13.3 % (11.6-14.6); RBC Distribution Width SD 45.8 fl (35.1-43.9); White Blood Count 9.9 K/mm3 (4.4-11.0)
[2017-09-28 17:41] LABS: Scan Indicated on CBC? Y/N NO
--- NOTE | 2017-09-29 07:55 | OB.TRI.NOTE ---
History of Present Illness Date of Service: 09/28/17 Was patient seen by the physician?: Yes Reason For Visit: CRAMPING Date of Service: 09/28/17 Final TIARA: 03/04/18 Final TIARA Source: US <20 weeks Gestational age: 17 Weeks and 5 Days History of Present Illness: Patient has been experiencing vaginal bleeding with PPROM since last week. Clots as large as baseball reported. No fevers. Has elected for expectant management at this time. Has seen MFM with risks of continuing thoroughly reviewed. Home Medications Medication Instructions Recorded Vits [Prenatabs FA] 1 tablet PO DAILY 07/11/17 Ondansetron [Zofran Odt] 4 mg PO Q8H PRN PRN #10 tab 09/01/17 ProMETHAzine [Phenergan] 25 mg PO Q6H PRN PRN #15 tab 09/01/17 Ranitidine [Zantac] 150 mg PO BID 09/03/17 Polyethylene Glycol 3350 [Miralax] 17 gm PO DAILY 30 Days #30 packet 09/05/17 Docusate Sodium [Colace] 100 mg PO PRN PRN 09/21/17 Allergies No Known Allergies Allergy (Verified 09/21/17 18:57) Physical Exam General: Alert, Oriented x3, Cooperative, No apparent distress Cardiovascular: Regular rate, Regular Rhythm Lungs: Clear to auscultation, Normal air movement Abdomen: Soft, Non Tender, Non-Distended, Gravid, Appropriate for Gestational Age Extremities:: No edema Estimated gestational size: Appropriate for gestational size Presentation: Breech Cervix Dilation (cm): 0 Station: -3 Effacement (%): 0 NST - FHR Rate Baby A Baseline: 130s NST Reactive:: Appropriate for gestational age, Non-Reactive Uterine Activity:: none Impression/Plan US was performed with heart beat noted and movement appreciated. Amniotic fluid low. Some bright red bleeding noted but no clots. No appreciable large clots noted on US in the uterine cavity or lower uterus. Discussed findings. CBC without significant anemia. She will continue to observe for signs of infection. If bleeding heavy and persistent will return.
== END 2017-09-28 18:06 | disposition home or self-care (01) ==
LOC: WPOUT 17:07 → WP 17:08
PROVIDERS: Visit Provider Obstetrics & Gynecology
DX: O20.9 Hemorrhage in early pregnancy, unspecified (principal); Z3A.17 17 weeks gestation of pregnancy
CPT/HCPCS: 36415; 76815; 85027; 99218; G0378

== ENCOUNTER → 2017-10-01 16:28 | Outpatient (CLI) | payer MEDICAID, SELFPAY ==
[2017-10-01 17:28] LABS: Absolute Lymphocyte Count 1.44 X10^3/ul (0.83-4.51); Absolute Neutrophil Count 6.5 X10^3/uL (2.0-7.7); Basophil# 0.01 X10^3/uL; Basophil% 0.1 % (0-1); Eosinophil# 0.01 X10^3/uL; Eosinophils% 0.1 % (0-5); Hematocrit 33.8 % (37-47); Hemoglobin 11.7 g/dl (12.0-15.0); Lymphocyte # 1.44 X10^3/ul (4.0); Lymphocyte % 16.3 % (19-41); Mean Corp Hgb Conc 34.6 g/gl (32-36); Mean Corpuscular Hgb 33.1 pg (27.0-32.0); Mean Corpuscular Volume 95.5 fL (81-99); Mean Platelet Vol. 10.1 fl (6.2-12.0); Monocyte# 0.84 X10^3/uL; Monocyte% 9.5 % (0-10); Neutrophil # 6.52 X10^3/uL (2.7-7.7); Neutrophil % 73.8 % (47-70); Platelet Count 226 K/mm3 (150-450); RBC Distribution Width CV 13.6 % (11.6-14.6); RBC Distribution Width SD 44.6 fl (35.1-43.9); Red Blood Count 3.54 M/mm3 (4.2-5.4); White Blood Count 8.8 K/mm3 (4.4-11.0)
[2017-10-01 17:43] LABS: POSITIVE COUNT NO; POSITIVE DIFFERENTIAL NO; POSITIVE MORPHOLOGY NO
== END ==
PROVIDERS: Visit Provider Obstetrics & Gynecology
DX: O26.852 Spotting complicating pregnancy, second trimester (principal); Z3A.00 Weeks of gestation of pregnancy not specified
CPT/HCPCS: 36415; 85025

== ENCOUNTER 2017-10-05 15:45 | Inpatient (IN) | payer MEDICAID, SELFPAY ==
[2017-10-05 09:51] VITALS: BMI 39.7
[2017-10-05 10:27] LABS: Absolute Lymphocyte Count 0.95 X10^3/ul (0.83-4.51); Absolute Neutrophil Count 7.2 X10^3/uL (2.0-7.7); Basophil# 0.01 X10^3/uL; Basophil% 0.1 % (0-1); Hematocrit 33.2 % (37-47); Hemoglobin 11.4 g/dl (12.0-15.0); Lymphocyte # 0.95 X10^3/ul (4.0); Lymphocyte % 11.1 % (19-41); Mean Corp Hgb Conc 34.3 g/gl (32-36); Mean Corpuscular Hgb 32.6 pg (27.0-32.0); Mean Corpuscular Volume 94.9 fL (81-99); Mean Platelet Vol. 9.6 fl (6.2-12.0); Monocyte# 0.46 X10^3/uL; Monocyte% 5.4 % (0-10); Neutrophil # 7.16 X10^3/uL (2.7-7.7); Neutrophil % 83.3 % (47-70); POSITIVE COUNT NO; POSITIVE DIFFERENTIAL NO; POSITIVE MORPHOLOGY NO; Platelet Count 192 K/mm3 (150-450); RBC Distribution Width CV 14.2 % (11.6-14.6); White Blood Count 8.6 K/mm3 (4.4-11.0)
[2017-10-05] MEDS: HYDROmorphone 0.5 MG/0.5 ML SYRINGE IV ×3 (16:08→19:16)
[2017-10-05] MEDS: Lactated Ringers 1,000 ML 50 ML IV (16:30)
--- NOTE | 2017-10-05 17:15 | PCM.PN.BLA ---
Progress Note LABOR PROGRESS NOTE Shaking and tearful, multiple concerns but doesn't know where to start asking questions. Aware that baby will not cry after AVSS No monitoring in labor. no toco Epidural in place. Starting to get comfortable but has shakes. CX: 2 / 100 / active bleeding noted. Well developed lower uterine segment. Small parts palpable through cervix. A/P: 19 5/7 wk SPPROM at 17 5/7 wk. CBC normal earlier today, no inc WBCs. Cytotec 400 mcg PV x one placed. reviewed use of cytotec to effect delivery of fetus (previable) and placenta. Prior C/S deliveries noted, but hoping to avoid hysterotomy and classical C/S incision. SEPARATE DISCUSSION with SPOUSE: He states has been doing research and is aware nonviable. Pt was hoping to carry to viability. Advised that EVEN if able to carry longer (which is not possible as she is in labor now), lungs are not developed if no amniotic fluids, and would not allow life after . Sono earlier today showed no fluid, she is bleeding actively. Per : Patient's mother who lives in [place] has been calling and stated to him that they would have facilities in [place] to allow her to carry baby longer. He realizes this is not possible due to EGA. He is concerned about his 's mental status. would like to be sure the is stable mentally prior to going home. He would like her to stay as long as possible. Asking about arrangements, if this will be needed? Advised will have pp depression screening, support for early loss of and ongoing support prn. May consider antidepressant tx. Will also give prn Ativan for anxiety during labor and in pp recovery.
--- NOTE | 2017-10-05 17:23 | PN_ITS ---
Progress Note LABOR PROGRESS NOTE Shaking and tearful, multiple concerns but doesn't know where to start asking questions. Aware that baby will not cry after AVSS No monitoring in labor. no toco Epidural in place. Starting to get comfortable but has shakes. CX: 2 / 100 / active bleeding noted. Well developed lower uterine segment. Small parts palpable through cervix. A/P: 19 5/7 wk SPPROM at 17 5/7 wk. CBC normal earlier today, no inc WBCs. Cytotec 400 mcg PV x one placed. reviewed use of cytotec to effect delivery of fetus (previable) and placenta. Prior C/S deliveries noted, but hoping to avoid hysterotomy and classical C/S incision. SEPARATE DISCUSSION with SPOUSE: He states has been doing research and is aware nonviable. Pt was hoping to carry to viability. Advised that EVEN if able to carry longer (which is not possible as she is in labor now), lungs are not developed if no amniotic fluids, and would not allow life after . Sono earlier today showed no fluid, she is bleeding actively. Per : Patient's mother who lives in [place] has been calling and stated to him that they would have facilities in [place] to allow her to carry baby longer. He realizes this is not possible due to EGA. He is concerned about his 's mental status. would like to be sure the is stable mentally prior to going home. He would like her to stay as long as possible. Asking about arrangements, if this will be needed? Advised will have pp depression screening, support for early loss of and ongoing support prn. May consider antidepressant tx. Will also give prn Ativan for anxiety during labor and in pp recovery.
[2017-10-05] MEDS: miSOPROStol 200 MCG Tablet 400 MCG VAGINAL ×2 (17:30→21:21)
[2017-10-05] MEDS: LORazepam 2 MG/ML Syringe IV (17:37)
--- NOTE | 2017-10-05 19:58 | PCM.PN.BLA ---
Progress Note LABOR PROGRESS NOTE 19 5/7 wk SPPROM x two weeks. early labor. Augmented with single dose Cytotec 400 mcg PV x one. Comfortable w/ epidural. Some heart burn. CX: /100/stretchy. A/P; 19 5/7 wk SPPROM previable. Continue labor. ancipitate . Grief counselling and support prn. will give Zantac 150 mg bid
[2017-10-05] MEDS: proMETHazine 25 MG/ML Syringe IV (20:06)
[2017-10-05 20:11] VITALS: BP 119/57; PULSE 80; RESP 18; TEMP 36.5
--- NOTE | 2017-10-05 21:04 | PCM.PN.BLA ---
Progress Note LABOR PROGRESS NOTE Second dose of Cytotec due. CX: 5/100/-2 slightly lower in pelvis. Both large and small parts palpable. Continue induction 19 6/7 wk previable IUP. SPPROM approx 2 wk ago.
[2017-10-05 22:34] VITALS: BP 105/52; PULSE 94; RESP 16; TEMP 36.6; O2SAT 95
--- NOTE | 2017-10-06 00:53 | PCM.PN.BLA ---
Progress Note LABOR PROGRESS 19 5/7 wk SPPROM for approx 2 wks, now in labor. Augment with Cytotec. S/P TWO doses of Cytotec for total 800 mcg. Hand presentation. Hand at introitus. Attempted pushing, but not able to deliver yet wk SPPROM. remains afeb. with continued vaginal bleeding. Repeat Cytotec dose due at 0130 am. Recheck progress then and consider additional dose of cytotec prn. Plan repeat CBC approx 6 hr after delivery to reassess for anemia given continued bleeding since admission.
--- NOTE | 2017-10-06 01:07 | PCM.PN.BLA ---
Progress Note 19 5/7 wk SPPROM Called to room with patient feeling something. Not sure what it was but a throbbing sensation AVSS EXAM: hand just within vagina. Cervix with more fetus protruding through. DELIVERY NOTE: Delivered by a dempsey nonviable male. No anomalies noted. Ap 0/0. One arm discolored, more dusky appearing (the one presenting) Cord cut, clamp applied and baby to maternal abdomen to allow her to hold and couple to grieve. Minimal vaginal bleeding noted. Placenta remains IV pitocin started. Watch for delivery of placenta or increased vaginal bleeding requiring D and C. Continue care, support grieving process.
--- NOTE | 2017-10-06 01:16 | DCINST_ITS ---
Discharge Diet: No Restrictions Discharge Activity: May Shower, May Take a Tub Bath May resume sexual activity in: 4-6 weeks Additional Activity Instructions:: Nothing in the vagina for 4-6 weeks. Additional Instructions: If you experience any of the following, contact your healthcare provider. * Bleeding that soaks a pad every hour for 2 hours * Fever 100.4 or higher * Unrelieved abdominal pain * Problems urinating (including inability to urinate or burning while urinating) . * Visual changes * Severe headache * Flu-like symptoms * Pain or redness in one of both of your breasts * Pain, warmth, tenderness or swelling in your legs, especially the calf area * Frequent nausea and vomiting * Symptoms of depression or anxiety If you experience any of the following, call 911 or go to the nearest Emergency Room. * Chest pain * Problems breathing * Seizure activity * Partial or complete paralysis of a body part, slurred speech, weakness or drooping of the face, or a sudden inability to walk or hold your balance Allergies/Adverse Reactions: Allergies No Known Allergies Allergy (Verified 09/21/17 18:57) Medications to take at Discharge Vits [Prenatabs FA] 1 tablet PO DAILY 07/11/17 Ondansetron [Zofran Odt] 4 mg PO Q8H PRN PRN #10 tab 09/01/17 proMETHazine tablet [Phenergan] 25 mg PO Q6H PRN PRN #15 tab 09/01/17 Ranitidine [Zantac] 150 mg PO BID 09/03/17 Polyethylene Glycol 3350 [Miralax] 17 gm PO DAILY 30 Days #30 packet 09/05/17 Docusate Sodium [Colace] 100 mg PO PRN PRN 09/21/17 Please Follow Up With: Marcia Vale MD - [phone] When: Call to make an appointment with your doctor in 1-2 weeks for postdelivery follow up appointment. Primary Care Physician: Care Physician,No Primary [Primary Care Provider] -
[2017-10-06] MEDS: Oxytocin 30 units/NS 500 ml 30 UNITS/500 ML IV.SOLN 334 UNITS IV (01:20)
[2017-10-06] MEDS: Methylergonovine 0.2 MG/ML Ampul IM (01:30)
--- NOTE | 2017-10-06 01:41 | PCM.OP.BLANK ---
Operative Report Date of Procedure: 10/06/17 CALLED TO ROOM: BEDSIDE D and C Banjo Curette IV pitocin hung and Methergine 0.2 mg IM in L thigh given after delivery of . Called to room. Brisk vaginal bleeding noted DX: hemorrhage, retained placenta Patient cComfortable w/ epidural. Holding baby. drape placed under buttocks, and perineum prepped with betadine EXAM then: vagina filled with clots and blood. removed by manual extraction and by guided Banjo curette Placenta withdrawn at manual inspection of uterus, as well as by guided Banjo curettage. Approx 800 cc EBL Ancef 2 gm IV after D and C. Patient tolerated procedure well. Minimal to no bleeding noted at end of curettage and EUA. SECOND CALL BACK: Called back to room then again: Pt then became weak and pale, nauseated. Nearly syncopal. Bleeding stable and no active VB noted. Pt able to communicate, but pale appearing and very tired. Wants to stay awake to hold baby. CBC now IV fluids Zofran for nausea.
[2017-10-06] MEDS: Ondansetron 4 MG/2 ML Vial IV (01:49)
[2017-10-06] MEDS: Oxytocin 30 units/NS 500 ml 30 UNITS/500 ML IV.SOLN 167 UNITS IV (01:50)
[2017-10-06] MEDS: Lactated Ringers 1,000 ML 50 ML IV (02:04)
[2017-10-06] MEDS: Cefazolin 2 GM in 0.9% Normal Saline 100 ML IV (02:04)
[2017-10-06 02:08] LABS: Hematocrit 26.9 % (37-47); Hemoglobin 9.3 g/dl (12.0-15.0); Mean Corp Hgb Conc 34.6 g/gl (32-36); Mean Corpuscular Hgb 33.1 pg (27.0-32.0); Mean Corpuscular Volume 95.7 fL (81-99); Mean Platelet Vol. 9.6 fl (6.2-12.0); Platelet Count 218 K/mm3 (150-450); RBC Distribution Width CV 13.9 % (11.6-14.6); Red Blood Count 2.81 M/mm3 (4.2-5.4); Scan Indicated on CBC? Y/N NO; White Blood Count 11.1 K/mm3 (4.4-11.0)
[2017-10-06] MEDS: Mag Hydrox/Al Hydrox/Simeth 30 ML UDC PO (03:29)
[2017-10-06] MEDS: 0.9% Saline Lock 10 ML Syringe IV (04:58)
[2017-10-06 05:00] VITALS: BP 109/58; PULSE 93; RESP 16; TEMP 36.4; O2SAT 98
[2017-10-06] MEDS: proMETHazine 25 MG/ML Syringe IV (05:00)
[2017-10-06 08:00] VITALS: BP 98/60; PULSE 105; RESP 18; TEMP 36.6
[2017-10-06] MEDS: Acetaminophen 325 MG Tablet PO (08:16)
[2017-10-06 08:41] LABS: Hematocrit 28.5 % (37-47); Mean Corp Hgb Conc 35.1 g/gl (32-36); Mean Corpuscular Hgb 33.6 pg (27.0-32.0); Mean Corpuscular Volume 95.6 fL (81-99); Mean Platelet Vol. 9.2 fl (6.2-12.0); Platelet Count 229 K/mm3 (150-450); RBC Distribution Width CV 14.3 % (11.6-14.6); RBC Distribution Width SD 45.9 fl (35.1-43.9); Red Blood Count 2.98 M/mm3 (4.2-5.4); White Blood Count 12.8 K/mm3 (4.4-11.0)
[2017-10-06 08:43] LABS: Scan Indicated on CBC? Y/N NO
--- NOTE | 2017-10-06 08:50 | NURSING ---
0810 pt up to br to void; pt gait steady; lochia small; cbc drawn
--- NOTE | 2017-10-06 08:50 | NURSING ---
0825 pt sobbing emotional support given; pt blaming herself saying she did not try hard enough to keep infant inside; Chalino holding pt while she is crying;
--- NOTE | 2017-10-06 09:59 | PCM.PN.OB ---
Subjective: PPD#0 DAY OF DELIVERY 19 5/7 wk EGA SPPROM x two weeks, labor. Doing OK. States very sad after her family left to drive back to [place]. Has not slept much as she wants to spend as much time as possible with her baby boy. They named him Ian. Relates she was praying for God's strength (which is meaning of his name), for either her baby to stay inside longer or for her own strength. Grieving Uncertain re plans for cremation / burial , but leaning towards cremation and placing ashes in lockets as keepsakes. Objective: Sitting up in bed, tearful. Conversant. - Physical Exam General: Alert, Oriented x3 Neck: Supple Neurological: Cranial nerves II-XII grossly intact Psych/Mental Status: Normal Affect - tearful and grieving. Vital Signs Temp Pulse Resp BP Pulse Ox 98 F 105 H 18 98/60 98 10/06/17 08:00 10/06/17 08:00 10/06/17 08:00 10/06/17 08:00 10/06/17 05:00 Oxygen Delivery Method Room Air Weight: 108.4 kg Body Mass Index (BMI) 39.7 Intake and Output for Last 24 Hours 10/04/17 10/05/17 10/06/17 23:59 23:59 23:59 Intake Total 2208 / 2208 Output Total 600 / 600 Balance 1608 / 1608 Laboratory Tests Past 24 Hrs 10/05/17 10/05/17 10/06/17 10:15 10:15 01:55 WBC 8.6 11.1 H RBC 3.50 L 2.81 L Hgb 11.4 L 9.3 L Hct 33.2 L 26.9 L MCV 94.9 95.7 MCH 32.6 H 33.1 H MCHC 34.3 34.6 RDW 14.2 13.9 RDW Differential 48.0 H 45.0 H Plt Count 192 218 MPV 9.6 9.6 Immature Gran % (Auto) 0.100 Neut % (Auto) 83.3 H Lymph % (Auto) 11.1 L [place] % (Auto) 5.4 Eos % (Auto) 0.0 Baso % (Auto) 0.1 Absolute Neuts (auto) 7.2 Absolute Lymphs (auto) 0.95 Total Counted Not Reportable Blood Type O POSITIVE Antibody Screen NEGATIVE 10/06/17 08:20 WBC 12.8 H RBC 2.98 L Hgb 10.0 L Hct 28.5 L MCV 95.6 MCH 33.6 H MCHC 35.1 RDW 14.3 RDW Differential 45.9 H Plt Count 229 MPV 9.2 Immature Gran % (Auto) Neut % (Auto) Lymph % (Auto) [place] % (Auto) Eos % (Auto) Baso % (Auto) Absolute Neuts (auto) Absolute Lymphs (auto) Total Counted Blood Type Antibody Screen Medical Necessity - Tobacco Use Smoking Status: Former smoker Assessment/Plan 19 11/19 wk SPPROM x two weeks. Delivered. Medically stable. Support offered. Reviewed all findings and hx of last two weeks since SPPROM. Advised her that she did everything possible for her son. Primarily a placental issue, implantation and defect in membranes allowing SROM. Has keepsake hand and foot prints. Offered medication prn for anxiety , depression. 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 RTO in 1-2 wk for f/u with Dr Cornelius Henderson for further discussion. Support group information, and grief counseling ongoing prior to dischg
--- NOTE | 2017-10-06 10:07 | PN.OBGYN_ITS ---
Subjective: PPD#0 DAY OF DELIVERY 19 5/7 wk EGA SPPROM x two weeks, labor. Doing OK. States very sad after her family left to drive back to [place]. Has not slept much as she wants to spend as much time as possible with her baby boy. They named him Ian. Relates she was praying for God's strength ( which is meaning of his name), for either her baby to stay inside longer or for her own strength. Grieving Uncertain re plans for cremation / burial , but leaning towards cremation and placing ashes in lockets as keepsakes. Objective: Sitting up in bed, tearful. Conversant. - Physical Exam General: Alert, Oriented x3 Neck: Supple Neurological: Cranial nerves II-XII grossly intact Psych/Mental Status: Normal Affect - tearful and grieving. Vital Signs Temp Pulse Resp BP Pulse Ox 98 F 105 H 18 98/60 98 10/06/17 08:00 10/06/17 08:00 10/06/17 08:00 10/06/17 08:00 10/06/17 05:00 Oxygen Delivery Method Room Air Weight: 108.4 kg Body Mass Index (BMI) 39.7 Intake and Output for Last 24 Hours 10/04/17 10/05/17 10/06/17 23:59 23:59 23:59 Intake Total 2208 / 2208 Output Total 600 / 600 Balance 1608 / 1608 Laboratory Tests Past 24 Hrs 10/05/17 10/05/17 10/06/17 10:15 10:15 01:55 WBC 8.6 11.1 H RBC 3.50 L 2.81 L Hgb 11.4 L 9.3 L Hct 33.2 L 26.9 L MCV 94.9 95.7 MCH 32.6 H 33.1 H MCHC 34.3 34.6 RDW 14.2 13.9 RDW Differential 48.0 H 45.0 H Plt Count 192 218 MPV 9.6 9.6 Immature Gran % (Auto) 0.100 Neut % (Auto) 83.3 H Lymph % (Auto) 11.1 L [place] % (Auto) 5.4 Eos % (Auto) 0.0 Baso % (Auto) 0.1 Absolute Neuts (auto) 7.2 Absolute Lymphs (auto) 0.95 Total Counted Not Reportable Blood Type O POSITIVE Antibody Screen NEGATIVE 10/06/17 08:20 WBC 12.8 H RBC 2.98 L Hgb 10.0 L Hct 28.5 L MCV 95.6 MCH 33.6 H MCHC 35.1 RDW 14.3 RDW Differential 45.9 H Plt Count 229 MPV 9.2 Immature Gran % (Auto) Neut % (Auto) Lymph % (Auto) [place] % (Auto) Eos % (Auto) Baso % (Auto) Absolute Neuts (auto) Absolute Lymphs (auto) Total Counted Blood Type Antibody Screen Medical Necessity - Tobacco Use Smoking Status: Former smoker Assessment/Plan 19 11/19 wk SPPROM x two weeks. Delivered. Medically stable. Support offered. Reviewed all findings and hx of last two weeks since SPPROM. Advised her that she did everything possible for her son. Primarily a placental issue, implantation and defect in membranes allowing SROM. Has keepsake hand and foot prints. Offered medication prn for anxiety , depression. Discussed normal grieving and only she can decide what she would like to do / take (if anything) Declines for now, but states may be more rough as time comes for the collections and archives director to pick up man Ian and for her to go home. RTO in 1-2 wk for f/u with Dr Cornelius Henderson for further discussion. Support group information, and grief counseling ongoing prior to dischg
[2017-10-06] MEDS: Polyethylene Glycol 3350 17 GM PACKET PO (10:19)
[2017-10-06] MEDS: Naproxen 250 MG Tablet PO (10:37)
[2017-10-06 12:00] VITALS: BP 122/68; PULSE 98; RESP 18; TEMP 36.6
[2017-10-06] MEDS: Ondansetron ODT 4 MG Tablet PO (14:51)
[2017-10-06 15:52] VITALS: BP 117/66; PULSE 86; RESP 18; TEMP 36.3; O2SAT 97
--- NOTE | 2017-10-06 17:23 | NURSING ---
1300 While rounding, I was able to connect with parents as a grieving support nurse and offering emotional support. We discussed our monthly support group [facility] and encouraged to feel free to join us when they feel ready. Hugs and condolences given to parents each individually. We discussed questions they had regarding sibling support and the sibling book that was placed in their grief basket to hopefully help with their grief as well. Parents so appreciative of what we had to offer them with grieving basket and pictures prints etc that they discussed the desire to give back. Mom discussed donating her wedding dress to have it used for burial gowns etc for parents with loss. Parents requested having more grief bracelets and 5 more were given to parents for family members. Dad mentioned how much it meant for him to receive a daddy grief bag and how he never thought that he would be recognized but feels very moved emotionally that he was made to feel very special during this time of grief. I will be following up with parents to offer grief support and if any questions arise. Samuel
[2017-10-06] MEDS: LORazepam 0.5 MG Tablet PO (18:31)
[2017-10-06 18:33] VITALS: BP 134/87; PULSE 104; RESP 20; TEMP 36.7
== END 2017-10-06 20:00 | disposition home or self-care (01) | DRG 375 ==
PROVIDERS: Admitting Provider Obstetrics & Gynecology; Visit Provider Obstetrics & Gynecology
DX: O42.112 Preterm premature rupture of membranes, onset of labor more than 24 hours following rupture, second trimester (principal); E66.01 Morbid (severe) obesity due to excess calories; O99.214 Obesity complicating childbirth; Z68.39 Body mass index [BMI] 39.0-39.9, adult; Z3A.19 19 weeks gestation of pregnancy; Z37.0 Single live birth; O72.0 Third-stage hemorrhage; Z87.891 Personal history of nicotine dependence
CPT/HCPCS: 36415; 85025; 85027; 86850; 86900; 99218; J7120; A4216; G0378; J2405

== ENCOUNTER → 2018-11-11 | Outpatient (CLI) | payer MEDICAID, SELFPAY ==
[2018-11-11 12:26] LABS: hCG Titer Quant., Serum 2154 mIU/mL (1-3)
== END | disposition home or self-care (01) ==
LOC: WOBLAB 10:32
PROVIDERS: Visit Provider Obstetrics & Gynecology
DX: O20.0 Threatened abortion (principal)
CPT/HCPCS: 36415; 84702

== ENCOUNTER → 2018-11-13 | Outpatient (CLI) | payer MEDICAID, SELFPAY ==
[2018-11-13 11:07] LABS: hCG Titer Quant., Serum 3819 mIU/mL (1-3)
== END | disposition home or self-care (01) ==
PROVIDERS: Visit Provider Obstetrics & Gynecology
DX: O20.0 Threatened abortion (principal)
CPT/HCPCS: 36415; 84702

== ENCOUNTER 2018-11-27 08:30 | Emergency (ER) | payer MEDICAID, SELFPAY ==
[2018-11-27 08:31] VITALS: BP 150/85; PULSE 91; RESP 16; TEMP 36.2; O2SAT 100; BMI 39.2
--- NOTE | 2018-11-27 08:48 | ED.VISSUMM ---
- ER Visit Summary Date of Service: 11/27/18 Chief Complaint: Fall History of Present Illness: The patient is a 32 F who states this morning she is get in the shower slipped on wet floor and fell onto her right side. She states she is about 6 weeks . She denies any vaginal bleeding or leakage of fluid. She denies any abdominal cramping. She notes pain over the thenar eminence of the right hand. She has pain in the right posterior hip buttock. There is also pain in the lateral right ankle and in the right lower mid axillary line ribs. She is breathing okay. She is able to bear weight. She went into work but then left to come to be seen. She has not taken any pain medication. Physical Examination: Afebrile vital signs are stable Gen: Well-nourished well-developed Head: Normocephalic atraumatic Eyes: Perrl EOMI ENT: TMs clear no rhinorrhea moist mucous membranes Neck: Supple no lymphadenopathy no JVD nontender CVS: Regular rate rhythm no murmurs normal S1-S2 Respiratory: No distress clear to auscultation bilaterally chest is tender in the lower right mid axillary line ribs. No ecchymosis. Abdomen: Soft nontender nondistended normal bowel sounds no masses Back: Nontender Extremity: No pain with logroll. Tenderness over the right buttock region. There is a slight contusion just proximal to the right lateral malleolus. There is bruising and mild swelling and tenderness in the right thenar eminence. Normal opposition. Skin: Normal color no rash Neuro: alert orientated ?3 CN II-XII intact normal strength sensation reflexes gait cerebellar Psych: Normal affect normal mood Test Results: X-rays of the wrist chest and ankle were obtained. These were negative for fracture Emergency Department Course and Treatment: Patient received Tylenol. She is O+. Patient to follow-up with OB as scheduled. She is to monitor for bleeding or leakage of fluid. Impression: 1. First trimester 2. Right hand contusion 3. Right hip contusion 4. Right chest wall contusion 5. Right leg contusion This note was generated with Lockstream[employer] software. It may contain incorrect words, spelling, and punctuation that were not noted in review of the chart prior to signing ED Disposition - Plan for ED Patient: Disposition: Home or Assisted Living Instructions: ED Contusion Hand, ED Contusion Chest Wall Additional Instructions: Tylenol for pain Ice 20-minute sessions as needed for swelling/pain Follow-up with your [facility] [employer] as scheduled -call OB if you experience vaginal bleeding or leakage of fluid
--- NOTE | 2018-11-27 09:02 | RAD_ITS ---
STUDY: X-RAY - RIGHT ANKLE REASON FOR EXAM: Female, 32 years old. Pain following a fall. TECHNIQUE: 3 view(s) of the ankle. COMPARISON: None. FINDINGS: Normal visualized distal tibia and fibula. Normal medial and lateral malleoli. Normal tibiotalar articulation and ankle mortise. A spur is seen at the insertion of the Achilles tendon. The visualized subtalar, talonavicular, calcaneocuboid and tarsal articulations are normal. The soft tissue structures are unremarkable. RAD/Ankle min 3 Views IMPRESSION: Normal x-ray examination of the ankle. A small spur at the insertion of the Achilles tendon. Electronically Signed: Rodrigo Lieberman, at 9:34 EDT , Service support ,
[2018-11-27] MEDS: Acetaminophen 500 MG Tablet 1000 MG PO (09:04)
--- NOTE | 2018-11-27 09:09 | RAD_ITS ---
STUDY: X-RAY CHEST REASON FOR EXAM: Female, 32 years old. Chest pain following a fall. TECHNIQUE: PA and lateral views of the chest. COMPARISON: Comparison is made with prior study dated September 03, 2017. FINDINGS: The lungs are clear and expanded. There is no demonstrated pleural abnormality. Normal size heart. Normal mediastinum and cristiana. Normal visualized pulmonary arteries. Normal visualized aortic arch and descending thoracic aorta. Normal visualized thoracic spine. Normal visualized ribs, clavicles, and shoulders. There is no demonstrated abnormality of the visualized soft tissue structures of the upper abdomen. RAD/Chest PA and Lateral IMPRESSION: Normal x-ray examination of the chest. Electronically Signed: Rodrigo Lieberman, at 9:35 EDT , Service support ,
--- NOTE | 2018-11-27 09:17 | RAD_ITS ---
STUDY: X-RAY - RIGHT WRIST REASON FOR EXAM: Female, 32 years old. Pain following a fall. TECHNIQUE: 3 view(s) of the wrist were obtained. COMPARISON: None. FINDINGS: Normal visualized distal radius and ulna. Normal radiocarpal articulation. Normal distal radioulnar articulation. Normal carpal bones. Normal carpal articulations. Normal carpometacarpal articulation of the thumb. Normal second through fifth carpometacarpal articulations. Normal visualized metacarpal bones. The soft tissue structures are unremarkable. RAD/Wrist min 3 Views IMPRESSION: Normal x-ray examination of the wrist. Electronically Signed: Rodrigo Lieberman, at 9:34 EDT , Service support ,
[2018-11-27 10:06] VITALS: PULSE 87; RESP 17; O2SAT 100
== END 2018-11-27 10:07 | disposition home or self-care (01) ==
LOC: ED 09:29
PROVIDERS: Emergency Provider Emergency Medicine
DX: O26.891 Other specified pregnancy related conditions, first trimester (principal); S60.221A Contusion of right hand, initial encounter; S70.01XA Contusion of right hip, initial encounter; S20.211A Contusion of right front wall of thorax, initial encounter; S80.11XA Contusion of right lower leg, initial encounter; Z87.891 Personal history of nicotine dependence; Z3A.01 Less than 8 weeks gestation of pregnancy; W18.2XXA Fall in (into) shower or empty bathtub, initial encounter; Y93.E1 Activity, personal bathing and showering; Y92.002 Bathroom of unspecified non-institutional (private) residence as the place of occurrence of the external cause; Y99.8 Other external cause status
CPT/HCPCS: 71046; 73110; 73610; 99283

== ENCOUNTER → 2018-12-06 | Outpatient (CLI) | payer MEDICAID, SELFPAY ==
[2018-11-27 08:31] VITALS: BMI 39.2
[2018-12-06 15:52] LABS: Color, Urine Yellow (Yellow); Glucose, Dipstick Normal (Normal); Ketone-Dipstick 15 mg/dl (Negative); Leukocyte Esterase-Dipstick 25 /ul (Negative); Nitrite-Dipstick Negative (Negative); Occult Blood-Urine 10 /ul (Negative); Protein-Dipstick 15 mg/dl (Negative); Urine Bilirubin Dipstick Negative (Negative); Urine Clarity Cloudy (Clear); Urine Urobilinogen Normal (Normal)
[2018-12-06 16:17] LABS: Absolute Lymphocyte Count 1.62 X10^3/ul (0.83-4.51); Absolute Neutrophil Count 5.6 X10^3/uL (2.0-7.7); Basophil# 0.02 X10^3/uL; Basophil% 0.3 % (0-1); Eosinophil# 0.03 X10^3/uL; Eosinophils% 0.4 % (0-5); Hematocrit 38.9 % (37-47); Hemoglobin 13.4 g/dl (12.0-15.0); Lymphocyte # 1.62 X10^3/ul (4.0); Lymphocyte % 20.9 % (19-41); Mean Corp Hgb Conc 34.4 g/gl (32-36); Mean Corpuscular Hgb 29.6 pg (27.0-32.0); Mean Corpuscular Volume 86.1 fL (81-99); Mean Platelet Vol. 10.7 fl (6.2-12.0); Monocyte# 0.48 X10^3/uL; Monocyte% 6.2 % (0-10); Neutrophil # 5.58 X10^3/uL (2.7-7.7); Neutrophil % 72.1 % (47-70); Platelet Count 193 K/mm3 (150-450); RBC Distribution Width CV 14.2 % (11.6-14.6); RBC Distribution Width SD 44.9 fl (35.1-43.9); Red Blood Count 4.52 M/mm3 (4.2-5.4); Thyroid Stim Hormone (TSH) 0.25 uIU/mL (0.358-3.74); White Blood Count 7.7 K/mm3 (4.4-11.0)
[2018-12-06 16:18] LABS: POSITIVE COUNT NO; POSITIVE DIFFERENTIAL NO; POSITIVE MORPHOLOGY NO
[2018-12-06 16:21] LABS: Amphetamine Urine VISTA NEGATIVE (<1000 ng/mL); Barbiturate Urine VISTA NEGATIVE (< 200 ng/mL); Benzodiazepine Urine VISTA NEGATIVE (< 200 ng/mL); Cocaine Urine VISTA NEGATIVE (< 300 ng/mL); Ecstacy Urine VISTA NEGATIVE (< 500 ng/mL); Methadone Urine VISTA NEGATIVE (< 300 ng/mL); PCP Urine VISTA NEGATIVE (< 25 ng/mL); THC Urine VISTA POSITIVE (< 50 ng/mL); Vista UDS pH Range 5
[2018-12-06 16:51] LABS: HIV - WCH Non-Reactive (Nonreactive); Rubella IgG 58.5 IU/mL
[2018-12-09 09:57] LABS: HEPATITIS B SURFACE AG Negative (Negative); Hep C Antibodies 0.1 s/co ratio (0.0-0.9)
[2018-12-11 07:42] LABS: Free T3 2.7 pg/mL (2.18-3.98)
[2018-12-13 01:45] LABS: Prenatal RPR NONREACTIVE (NONREACTIVE)
== END | disposition home or self-care (01) ==
LOC: WOBLAB 15:13
PROVIDERS: Visit Provider Obstetrics & Gynecology
DX: Z34.81 Encounter for supervision of other normal pregnancy, first trimester (principal)
CPT/HCPCS: 36415; 80307; 81002; 84439; 84443; 84481; 85025; 86703; 86762; 86803; 87340

== ENCOUNTER 2018-12-23 09:06 | Emergency (ER) | payer MEDICAID, SELFPAY ==
[2018-12-23 09:08] VITALS: BP 137/82; PULSE 99; RESP 17; TEMP 36.8; O2SAT 100; BMI 38.7
--- NOTE | 2018-12-23 09:37 | ED.DCSUM_ITS ---
History of Present Illness Chief Complaint: Constipation Informant: Patient Onset: Days - Past 4 days Context: Sudden Onset Timing: Continuous Quality: Rectal pain believed secondary to hemorrhoids Location: Right lower extremity Current Severity: Mild Maximum Severity: Severe Worsened by: Sitting and bowel movement Relieved by: Nothing Associated Symptoms: No associated symptoms Narrative: Patient is a 33-year-old G4, P2 female who is approximately 11.5 weeks gestation who presents with rectal pain for the past several days and no bowel movement for the past 4 days. She believes she has hemorrhoids. She denies blood or mucus in stool. She states she had minimal output yesterday. She denies fever, chills night sweats. She reports 14 pound weight loss. She states she has no appetite. She denies urologic symptoms. She denies cardiac or respiratory symptoms. Prior similar symptoms: Yes Recent Illness/Hospitalization: No Past Medical History - Allergies and Home Meds Allergies/Adverse Reactions: Allergies No Known Allergies Allergy (Verified 12/23/18 09:08) Primary Care Physician: Care Physician,No Primary [Primary Care Provider] - Surgical History: - - Status post section Lives: With Family Smoking Status: Current every day smoker Alcohol: None Drugs: None Review of Systems General: Reports: Weight loss. Denies: Chills, Fever, Malaise, Subjective, Sweats, - Eyes: Denies: Visual changes - bilaterally, Blurred Vision - bilaterally ENT: Denies: Rhinorrhea, Sore throat Cardiovascular: Denies: Chest pain, Palpitations Respiratory: Denies: Dyspnea, Cough, Dyspnea on exertion Gastrointestinal: Reports: Abdominal pain, Constipation, - - Rectal pain. Denies: Nausea, Vomiting, Diarrhea, Melena, Hematochezia, - Genitourinary: Reports: Frequency. Denies: Dysuria, Hematuria Musculoskeletal: Denies: Myalgias, Arthralgias, Neck pain, Back pain, Swelling, Extremity Pain, -, - Skin: Denies: Rash, Wounds Neurological: Denies: Headache, Weakness, Parasthesia, Numbness Hematologic: Denies: Easy bruising, Easy bleeding, Lymphadenopathy, -, - Allergy: Denies: Uticaria, Swelling of the mouth, Swelling of the tongue, -, - Physical Exam Vital Signs/Narrative: Vital Signs Temp Pulse Resp BP Pulse Ox 12/23/18 09:08 98.2 F 99 17 137/82 H 100 Inital Vital Signs reviewed: Yes General: Well nourished, Well developed, - - Patient standing next to examination bed. She is reluctant to sit. Head: Normocephalic, Atraumatic Eyes: Perrl, EOMI. Negative for: Pale conjunctiva, Scleral icterus ENT: Moist mucous membranes, No rhinorrhea Neck: Supple, Nontender, No lymphadenopathy, No JVD Cardiovascular: Regular rate, Regular rhythm, No murmurs Respiratory: No distress, CTA bilaterally, Chest nontender Abdomen: Soft, Nontender, Nondistended, Normal bowel sounds, No masses Rectal: - - There is a small BB sized thrombosed hemorrhoid 5:00 lithotomy position. No obvious fissures or fistulas noted. Patient has pain out of proportion to tactile stimulus. Back: Nontender, Normal Inspection Extremities: Nontender, No edema Skin: Normal color, No rash Neurological: Alert, Oriented x3, Cranial nerves II-XII grossly intact, Normal Strength, Normal Sensation Psychological: Normal affect Diagnostic/Tx/Re-eval Laboratory Results 12/23/18 12/23/18 10:00 10:00 WBC 7.1 RBC 4.47 Hgb 13.3 Hct 38.2 MCV 85.5 MCH 29.8 MCHC 34.8 RDW 14.3 RDW Differential 45.0 H Plt Count 178 MPV 10.2 Immature Gran % (Auto) 0.000 Neut % (Auto) 73.8 H Lymph % (Auto) 21.8 Alpine % (Auto) 4.0 Eos % (Auto) 0.3 Baso % (Auto) 0.1 Absolute Neuts (auto) 5.2 Absolute Lymphs (auto) 1.54 Total Counted Not Reportable Sodium 136 Potassium 3.5 Chloride 104 Carbon Dioxide 25.0 Anion Gap 7 BUN 6 L Creatinine 0.70 Estim Creat Clear Calc 104.78 Est GFR (MDRD) Af Amer 126 Est GFR (MDRD) Non-Af 104 BUN/Creatinine Ratio 8.6 L Glucose 73 L Calcium 9.0 - Medical Decision Making With 14 pound weight loss decreased bowel movements and rectal pain concern patient has a fissure in anal. Also because she is with 14 pound weight loss will obtain electrolytes to assess potassium etc. Also renal function. Will discuss case with her olive pitter once results are available, Dr. Underwood. CBC and BMP are unremarkable Anoscopy reveals small hemorrhoid that was palpable. There is also a fissure. This is the most likely cause of her severe pain. Upon further questioning patient admits to hard stools lately. She has not seen a surgeon in the past for her hemorrhoids. She was referred to Dr. Logan Carroll who is on-call for no doc. ED Disposition - Plan for ED Patient: Disposition: Home or Assisted Living Diagnosis: Fissure, anal, Thrombosed external hemorrhoid Instructions: ED Constipation, ED Hemorrhoids, ED Fissure Anal Ch Prescriptions: Phenylephrine HCl/[place] Butter [Preparation H Suppository] 1 each RC Q8H PRN PRN #15 supp.rect PRN Reason: Rectal pain Referrals: Care Physician,No Primary [Primary Care Provider] - () Logan Carroll MD [STAFF PHYSICIAN] - 5-7 Days Marlene Antonio MD [STAFF PHYSICIAN] - As Needed Additional Instructions: Your prescription was electronically transmitted to [facility].
[2018-12-23 10:12] LABS: Absolute Lymphocyte Count 1.54 X10^3/ul (0.83-4.51); Absolute Neutrophil Count 5.2 X10^3/uL (2.0-7.7); Basophil# 0.01 X10^3/uL; Basophil% 0.1 % (0-1); Eosinophil# 0.02 X10^3/uL; Eosinophils% 0.3 % (0-5); Hematocrit 38.2 % (37-47); Hemoglobin 13.3 g/dl (12.0-15.0); Lymphocyte # 1.54 X10^3/ul (4.0); Lymphocyte % 21.8 % (19-41); Mean Corp Hgb Conc 34.8 g/gl (32-36); Mean Corpuscular Hgb 29.8 pg (27.0-32.0); Mean Corpuscular Volume 85.5 fL (81-99); Mean Platelet Vol. 10.2 fl (6.2-12.0); Monocyte# 0.28 X10^3/uL; Neutrophil % 73.8 % (47-70); Platelet Count 178 K/mm3 (150-450); RBC Distribution Width CV 14.3 % (11.6-14.6); Red Blood Count 4.47 M/mm3 (4.2-5.4); White Blood Count 7.1 K/mm3 (4.4-11.0)
[2018-12-23 10:20] LABS: Anion Gap 7 (5-15); BUN 6 mg/dL (7-18); BUN/Creat Ratio 8.6 RATIO (10-20); Chloride 104 mmol/L (98-107); EST Glomerular Filtration Rate 104 mL/min (>60); Est Glom Filt Rate - Afr Amer 126 mL/min (>60); Estimated Creatinine Clearance 104.78 ml/min; Glucose 73 mg/dL (74-106); Potassium 3.5 mmol/L (3.5-5.1); Sodium Level 136 mmol/L (136-145)
[2018-12-23 10:30] LABS: POSITIVE COUNT NO; POSITIVE DIFFERENTIAL NO; POSITIVE MORPHOLOGY NO
== END 2018-12-23 11:43 | disposition home or self-care (01) ==
PROVIDERS: Emergency Provider Emergency Medicine
DX: O22.41 Hemorrhoids in pregnancy, first trimester (principal); K64.5 Perianal venous thrombosis; O26.891 Other specified pregnancy related conditions, first trimester; K60.2 Anal fissure, unspecified; O99.331 Smoking (tobacco) complicating pregnancy, first trimester; Z3A.11 11 weeks gestation of pregnancy
CPT/HCPCS: 46083; 46600; 80048; 85025; 99283; A4216

== ENCOUNTER 2018-12-24 00:19 | Emergency (ER) | payer MEDICAID, SELFPAY ==
[2018-12-23 09:08] VITALS: BMI 38.7
[2018-12-24 00:20] VITALS: BP 134/94; PULSE 76; RESP 20; TEMP 36.3; O2SAT 98; BMI 40.0
[2018-12-24] MEDS: HYDROcodone Bitartrate/Apap 5/325 Tablet PO (00:45)
--- NOTE | 2018-12-24 01:37 | ED.VISSUMM ---
- ER Visit Summary Date of Service: 12/24/18 Chief Complaint: Anal fissure History of Present Illness: The patient is a 33 F who presents with an anal fissure. She has also had problems with hemorrhoids. She was seen earlier in the day and had any anoscopy. She was given a prescription for Preparation H suppositories. She also had lidocaine jelly at home which she tried without relief. Her pain was worse after a bowel movement. She has tried sitz bath's as well. She has been referred to surgery. She is 11 weeks and 5 days . Physical Examination: Afebrile vitals unremarkable Moist mucous membranes Heart regular rate and rhythm Lungs clear Abdomen soft nontender Alert Tearful Test Results: Not indicated Emergency Department Course and Treatment: Rectal exam was deferred as the patient just had an anoscopy. She has tried really all of the initial measures including sitz bath's, Preparation H, lidocaine jelly. Although not ideal in she did appear to be in severe pain and was crying. She was given a Votaw. She is resting comfortably on reevaluation although still complaining of spasm. I advised that she follow-up with general surgery soon as possible and she is provided with a prescription for short course of Votaw. Treatment Plan: [] Disposition: Discharge Impression: Anal fissure This note was generated with [employer] dictation software. It may contain incorrect words, spelling, and punctuation that were not noted in review of the chart prior to signing ED Disposition - Plan for ED Patient: Referrals: Care Physician,No Primary [Primary Care Provider] -
--- NOTE | 2018-12-24 01:40 | ED.DEP ---
ED Disposition - Plan for ED Patient: Instructions: ED Fissure Anal Ch Prescriptions: Hydrocodone Bitart/Apap 5-325 [[place] 5MG-325MG] 1 tab PO Q6H PRN PRN 3 Days #8 tab PRN Reason: Pain Bisacodyl [Dulcolax] 5 mg PO DAILY #10 tab Referrals: Care Physician,No Primary [Primary Care Provider] -
[2018-12-24 01:55] VITALS: BP 134/92; PULSE 80; RESP 17; O2SAT 98
== END 2018-12-24 01:55 | disposition home or self-care (01) ==
PROVIDERS: Emergency Provider Emergency Medicine
DX: O26.891 Other specified pregnancy related conditions, first trimester (principal); K60.2 Anal fissure, unspecified; O99.331 Smoking (tobacco) complicating pregnancy, first trimester; Z3A.11 11 weeks gestation of pregnancy
CPT/HCPCS: 99283

== ENCOUNTER → 2018-12-27 | Outpatient (CLI) | payer MEDICAID, SELFPAY ==
[2018-12-26 09:19] VITALS: BMI 40.0
[2018-12-27 18:48] LABS: Chlamydia Trachomatis by PCR Negative (Negative); Neisserai gonorrhoeae by PCR Negative (Negative); Probe Check PASS; Sample Adequacy Control PASS; Specimen Processing Control PASS
[2019-01-01 11:30] LABS: HPV Reflexed? NOT INDICATED
== END | disposition home or self-care (01) ==
LOC: LABSPEC 15:47
PROVIDERS: Visit Provider Obstetrics & Gynecology
DX: Z12.4 Encounter for screening for malignant neoplasm of cervix (principal); Z11.3 Encounter for screening for infections with a predominantly sexual mode of transmission
CPT/HCPCS: 87491; 87591; 88175; G0145

== ENCOUNTER 2019-01-28 11:07 | Emergency (ER) | payer MEDICAID, SELFPAY ==
[2018-12-26 09:19] VITALS: BMI 40.0
[2019-01-28 11:08] VITALS: BP 120/69; PULSE 89; RESP 16; TEMP 36.8; O2SAT 97; BMI 38.2
--- NOTE | 2019-01-28 11:17 | ED.VIS.GEN ---
History of Present Illness Chief Complaint: Rash Detail of Chief Complaint: Rash on breast, chest and back Informant: Patient Onset: Days Context: Sudden Onset Timing: Continuous Quality: Red rash Location: Previously described Current Severity: Mild Maximum Severity: Mild Worsened by: Nothing Relieved by: Nothing Associated Symptoms: No associated symptoms including pruritus Past Medical History - Allergies and Home Meds Allergies/Adverse Reactions: Allergies No Known Allergies Allergy (Verified 01/28/19 11:07) Primary Care Physician: Care Physician,No Primary [Primary Care Provider] - Prior records reviewed: Yes Past Medical History: None Surgical History: noncontributory, - - Status post section Lives: Spouse/ Significant Other, With Family Smoking Status: Light Smoker (<10/day) Alcohol: None Review of Systems General: Denies: Chills, Fever, Malaise, Subjective, Sweats Eyes: Denies: Visual changes - bilaterally, Blurred Vision - bilaterally ENT: Denies: Rhinorrhea, Sore throat Cardiovascular: Denies: Chest pain, Palpitations, Heart racing Respiratory: Denies: Dyspnea, Cough, Dyspnea on exertion Gastrointestinal: Denies: Nausea, Vomiting, Diarrhea Genitourinary: Denies: Dysuria, Hematuria, Frequency Musculoskeletal: Denies: Myalgias, Arthralgias, Neck pain, Back pain, Swelling, Extremity Pain, -, - Skin: Reports: Rash. Denies: Abscess, Abrasions, Wounds Physical Exam Vital Signs/Narrative: Vital Signs Temp Pulse Resp BP Pulse Ox 01/28/19 11:08 98.2 F 89 16 120/69 97 Inital Vital Signs reviewed: Yes General: Well nourished, Well developed, No Acute Distress Head: Normocephalic, Atraumatic Eyes: Perrl, EOMI. Negative for: Pale conjunctiva, Scleral icterus ENT: Moist mucous membranes, No rhinorrhea Neck: Supple, Nontender, No lymphadenopathy, No JVD Cardiovascular: Regular rate, Regular rhythm, No murmurs, Normal S1, Normal S2 Abdomen: Soft, Nontender, Nondistended, Normal bowel sounds Back: Nontender, Normal Inspection Extremities: Nontender, No edema Skin: Normal color, Rash - Patient has tinea corporis lateral right breast. There is erythematous blanching rash with pustules noted and some. This may represent a heat rash versus folliculitis.. Negative for: Cyanosis, Diaphoresis, Jaundice, No Trauma Neurological: Alert, Oriented x3, Cranial nerves II-XII grossly intact, Normal Strength, Normal Sensation Psychological: Normal affect, Normal Mood Diagnostic/Tx/Re-eval - Medical Decision Making Jan right lateral breast is consistent with tinea corporis. There is raised exterior border with central clearing. The erythematous rash located on chest and back is suggestive of heat rash. Since there is some pustules noted this may represent folliculitis. Since she is 17 weeks gestation we will treat with cephalexin. ED Disposition - Plan for ED Patient: Disposition: Home or Assisted Living Diagnosis: Tinea corporis, Pustular rash Instructions: RINGWORM, Skin, Folliculitis Prescriptions: Cephalexin [Keflex] 500 mg PO 4X/DAY #28 cap Transmission Status: Pending to [facility] Tolnaftate [Tinactin] 30 gm TP 4X/DAY #1 cream..g. Transmission Status: Pending to [facility] Referrals: Care Physician,No Primary [Primary Care Provider] - Marlene Antonio MD [STAFF PHYSICIAN] - Keep Krys appointment Additional Instructions: Your prescriptions were electronically transmitted to [facility].
== END 2019-01-28 11:30 | disposition home or self-care (01) ==
PROVIDERS: Emergency Provider Emergency Medicine
DX: O26.892 Other specified pregnancy related conditions, second trimester (principal); B35.4 Tinea corporis; L08.0 Pyoderma; O99.332 Smoking (tobacco) complicating pregnancy, second trimester; Z3A.17 17 weeks gestation of pregnancy
CPT/HCPCS: 99282

== ENCOUNTER → 2019-03-05 | Outpatient (CLI) | payer MEDICAID, SELFPAY | END | disposition home or self-care (01) | LOC: LABSPEC 13:29 | PROVIDERS: Visit Provider Obstetrics & Gynecology | DX: O26.892 Other specified pregnancy related conditions, second trimester (principal); R30.0 Dysuria; Z3A.00 Weeks of gestation of pregnancy not specified | CPT/HCPCS: 87086; 87088 ==

== ENCOUNTER → 2019-04-18 | Outpatient (CLI) | payer MEDICAID, SELFPAY ==
[2019-04-18 13:59] LABS: Hematocrit 34.6 % (37-47); Hemoglobin 11.7 g/dL (12.0-15.0); Mean Corp Hgb Conc 33.8 g/dL (32-36); Mean Corpuscular Hgb 32.1 pg (27.0-32.0); Mean Corpuscular Volume 95.1 fL (81-99); Mean Platelet Vol. 10.9 fl (6.2-12.0); Platelet Count 159 K/mm3 (150-450); RBC Distribution Width CV 12.8 % (11.6-14.6); RBC Distribution Width SD 44.3 fl (35.1-43.9); Red Blood Count 3.64 M/mm3 (4.2-5.4); White Blood Count 8.2 K/mm3 (4.4-11.0)
[2019-04-18 14:21] LABS: Hemoglobin A1c 4.7 % (4.2-6.3)
== END | disposition home or self-care (01) ==
LOC: WOBLAB 11:01
PROVIDERS: Visit Provider Obstetrics & Gynecology
DX: Z34.83 Encounter for supervision of other normal pregnancy, third trimester (principal)
CPT/HCPCS: 83036; 85027

== ENCOUNTER 2019-05-09 07:16 | Outpatient (CLI) | payer MEDICAID, SELFPAY ==
[2019-05-09 07:29] VITALS: BMI 42.0
[2019-05-09] MEDS: Lactated Ringers 1,000 ML 999 ML IV (07:55)
--- NOTE | 2019-05-09 08:47 | OB.TRI.HP_ITS ---
History of Present Illness Date of Service: 05/09/19 Was patient seen by the physician?: Yes Reason For Visit: CRAMPING Date of Service: 05/09/19 Final TIARA: 07/10/19 Final TIARA Source: US <20 weeks Gestational age: 31 Weeks and 1 Days History of Present Illness: Pt states began thi at 0200, painfully, approx every 3-5 minutes; she has had three previous c/sections, most recently in 2018 at 19w EGA in following 17w5d PPROM; Allergies No Known Allergies Allergy (Verified 01/28/19 11:07) - Pertinent Past Medical History Medical History: Past Medical History (Last Updated 12/25/18 @ 14:16 by Mirian Oliva) Acid reflux Anxiety Constipation Diarrhea Hemorrhoids Nausea and vomiting Surgical History: Past Surgical History (Last Updated 12/25/18 @ 14:16 by Mirian Oliva) H/O: History of cholecystectomy Physical Exam General: Alert, Oriented x3, Cooperative HEENT: PERRLA, EOMI Cardiovascular: Regular rate, Regular Rhythm Lungs: Clear to auscultation, Normal air movement Abdomen: Bowel Sounds Present, Soft, Non Tender, Non-Distended, Gravid, Obese Neurological: Cranial nerves II-XII grossly intact, Deep Tendon Reflexes 2+/4 and Symmetrical GUEST SERVICES REPRESENTATIVE: Normal external genitalia Presentation: Unable to assess Cervix Dilation (cm): 1 Station: -3 Effacement (%): 30 NST - FHR Rate Baby A Baseline: 145 Variability:: Moderate Accelerations:: 10 x 10 Decelerations:: None NST Reactive:: Appropriate for gestational age FHR Category:: Category I Impression/Plan Assessment: 33yo at 31w1d gestation by 5w6d US contractions Previous Section Cat 1 FHTs Plan: D/w Dr. Hunter IV fluids FFN sent Vaginosis screen sent GBS culture sent UAC&S sent corticosteroids dose #1 of 2 Continued observation
[2019-05-09] MEDS: Betamethasone/Betamethasone 30 MG/5 ML Vial 12 MG IM (08:52)
[2019-05-09 08:57] LABS: Fetal Fibronectin Negative
[2019-05-09 10:01] LABS: Color, Urine Yellow (Yellow); Glucose, Dipstick Normal (Normal); Ketone-Dipstick Negative (Negative); Leukocyte Esterase-Dipstick Negative /ul (Negative); Nitrite-Dipstick Negative (Negative); Occult Blood-Urine Negative /ul (Negative); Protein-Dipstick Negative (Negative); Specific Gravity, Urine 1.015 (1.002-1.030); Urine Bilirubin Dipstick Negative (Negative); Urine Clarity Clear (Clear); Urine Urobilinogen Normal (Normal)
[2019-05-09 10:11] LABS: Bacteria 1+ /hpf (None Seen); Mucous, Urine 2+ /hpf (<or=2+); Red Blood Cells-Urine 0-5 SEEN /hpf (0-5); Squamous Epithelial Cells - UA 5-10 SEEN /hpf (5-10); Transitional Epithelial - Ur 0-5 SEEN /hpf (0-5); White Blood Cells 0-5 SEEN /hpf (0-5)
--- NOTE | 2019-05-09 12:12 | OB.TRI.PN ---
Progress Notes Date of Service: 05/09/19 Progress Note: S: Pt feeling more comfortable after IV fluids O: Urine and FFN negative, FHTs: 130 baseline, moderate variability with adccels, no decels No cervical change Contractions Q 6-12 A: Unlikely PTL Likely dehydration P: D/w Discussed at length ways to increase fluid intake GBS culture, Vaginosis screen pending Corticosteroid dose #1 of 2 administered DC home w/PTL precautions, FM counts, increased rest and fluids Return in 24 hours for corticosteroid dose #2 Laboratory Studies: Laboratory Tests 05/09/19 05/09/19 Range/Units 08:40 08:10 Urine Color Yellow (Yellow) Urine Clarity Clear (Clear) Urine pH 7.0 (5.0 - 8.0) Ur Specific [place] 1.015 (1.002-1.030) Urine Protein Negative (Negative) mg/dl Urine Glucose (UA) Normal (Normal) mg/dl Urine Ketones Negative (Negative) mg/dl Urine Occult Blood Negative (Negative) /ul Urine Nitrite Negative (Negative) Urine Bilirubin Negative (Negative) mg/dL Urine Urobilinogen Normal (Normal) mg/dl Ur Leukocyte Esterase Negative (Negative) /ul Urine RBC 0-5 SEEN (0-5) /hpf Urine WBC 0-5 SEEN (0-5) /hpf Ur Squamous Epith Cells 5-10 SEEN (5-10) /hpf Ur Transition Epith Cell 0-5 SEEN (0-5) /hpf Urine Bacteria 1+ (None Seen) /hpf Urine Mucus 2+ (<or=2+) /hpf Fibronectin Negative
== END 2019-05-09 11:05 | disposition home or self-care (01) ==
LOC: WPOUT 07:19 → OBT 07:19
PROVIDERS: Referring Provider Advanced Practice Midwife; Visit Provider Advanced Practice Midwife
DX: O60.03 Preterm labor without delivery, third trimester (principal); Z3A.31 31 weeks gestation of pregnancy
CPT/HCPCS: 96360; 59025; 59050; 81001; 82731; 87070; 87081; 87086; 87088; 87205; 96372; 99218; J7120; G0378; J0702

== ENCOUNTER 2019-05-10 09:25 | Outpatient (CLI) | payer MEDICAID, SELFPAY ==
[2019-05-09 07:29] VITALS: BMI 42.0
[2019-05-10 09:34] VITALS: BMI 42.0
[2019-05-10] MEDS: Betamethasone/Betamethasone 30 MG/5 ML Vial 12 MG IM (10:16)
--- NOTE | 2019-05-10 10:23 | NURSING ---
0930: 97.6 temporal, 99% room air, 20 resp, 129/62 sitting, right arm
--- NOTE | 2019-05-17 00:54 | OB.TRI.PN_ITS ---
Progress Notes Progress Note: celestone given
--- NOTE | 2019-05-17 00:54 | OB.TRI.PN ---
Progress Notes Progress Note: celestone given
== END 2019-05-10 10:20 | disposition home or self-care (01) ==
LOC: WPOUT 09:30 → OBT 09:31
PROVIDERS: Referring Provider Advanced Practice Midwife; Visit Provider Advanced Practice Midwife
DX: Z34.90 Encounter for supervision of normal pregnancy, unspecified, unspecified trimester (principal)
CPT/HCPCS: 96372; 99218; G0378; J0702

== ENCOUNTER 2019-06-23 02:50 | Inpatient (IN) | payer MEDICAID, SELFPAY ==
[2019-06-23] VITALS (18 sets, daily range): BP systolic 104–153; BP diastolic 56–85; PULSE 69–98; RESP 14–18; TEMP 36.2–36.6; O2SAT 94–100; BMI 42.3
[2019-06-23 03:44] LABS: ROM Internal Control Test YES-OK TO RESULT pt. (Internal QC)
[2019-06-23 03:45] LABS: ROM Patient Test POSITIVE (Negative)
[2019-06-23] MEDS: Lactated Ringers 1,000 ML 999 ML IV (04:00)
[2019-06-23 04:25] LABS: Absolute Neutrophil Count 5.5 X10^3/uL (2.0-7.7); Basophil# 0.01 X10^3/uL; Basophil% 0.1 % (0-1); Eosinophil# 0.06 X10^3/uL; Eosinophils% 0.8 % (0-5); Hematocrit 32.4 % (37-47); Hemoglobin 10.7 g/dL (12.0-15.0); Lymphocyte % 18.3 % (19-41); Mean Corpuscular Hgb 28.2 pg (27.0-32.0); Mean Corpuscular Volume 85.5 fL (81-99); Mean Platelet Vol. 11.3 fl (6.2-12.0); Monocyte# 0.62 X10^3/uL; Monocyte% 8.1 % (0-10); NRBC Flagged by Analyzer 0 % (0-5); Neutrophil # 5.53 X10^3/uL (2.7-7.7); Neutrophil % 72.3 % (47-70); Platelet Count 167 K/mm3 (150-450); RBC Distribution Width CV 13.6 % (11.6-14.6); RBC Distribution Width SD 42.7 fl (35.1-43.9); Red Blood Count 3.79 M/mm3 (4.2-5.4); White Blood Count 7.7 K/mm3 (4.4-11.0)
--- NOTE | 2019-06-23 04:28 | HP.PCM_ITS ---
History and Physical Date of Admission: 06/23/19 OB HISTORY AND PHYSICAL EXAMINATION History of this : 33 yo female Ab1 with EDC 07/10/2019 by 9 wk Ultrasound, presents to Labor and Delivery with CC of SROM... care remarkable for - 1.) PT PREFERS DR HINKLE FOR BOTH CARE AND DELIVERY 2.) Sterilization request Signed federal consent for BTO in Apr 2019 3.) Pityriasis rosea 4.) Marijuana positive 5.) Constipation. 6.) TSH low first trimester 7.) marijuana use - TOX SCREEN POSITIVE at [facility]. 8.), FOB has a 5 year old daughter form a previous relationship 9.) Declines MSAFP and CF testing 10.) Smokes 5-8 cigarettes per day, ATQ 11.) Prior C/S x 2, plans repeat C/S 12.) Hx of PPROM at 17 5/7wga, with 3rd and , 13.) BMI 43 PAST HISTORY: Breast/Ovarian/Colon Cancers - Denies Infections - unsure if chickenpox Illnesses - heartburn, back discomfort, carpal tunnel arms Accidents - None History of Abnormal PAPS - Denies Hospitalizations - Childbirth and see surgery SURGICAL HISTORY: 1. cholecystectomy, 2012 2. , 2005,2010 3. dental surgery MENSTRUAL HISTORY: LMP Known?- Definite, LMP - 10/05/18, Age Onset Menarche - 15 PAST PREGNANCIES: Total Pregnancies - 4; Full Term Pregnancies - 2; Premature - 0; Abortions, Induced - 0; Abortions, Spontaneous - 1; Ectopics - 0; Multiple Births - 0; Living Children - 2 FAMILY HISTORY: Maternal Grandparent - Ischemic heart disease; SOCIAL HISTORY: Alcohol Use - RARELY Smoking - used to smoke but quit Diet - balanced Diet, caffeine > 2 drinks per day and water intake- usually tries 64 oz. Sometimes two . 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 Place of - [facility] Hours Worked - 32-35 Spouse-Sig Other Name - Chalino Abdul Spouse-Sig Other Occupation - transportation- tier truck driver Spouse-Sig Other Phone No - [phone] Control - na Allergies: No Known Drug Allergies Medications: During - Colace 100 mg capsule; Zantac 150 mg tablet; Macrobid 100 mg capsule; Prilosec OTC 20 mg tablet,delayed release; Nexium 20 mg capsule,delayed release; One-A-Day Women's 1 DHA-FA 28 mg iron-800 mcg- 235 mg capsule; promethazine 12.5 mg tablet; Miralax 17 gram/dose oral powder; Stool Softener 100 mg capsule; Carafate 1 gram tablet Review of Systems: Gush of fluid, SROM PHYSICAL EXAMINATION General Appearance: 33 yo female in no acute distress Vital Signs: AF, VSS Lungs: regular rate and rhythm Breasts: deferred Abdomen: gravid Cervix: cephalic Size: AGA Movement: present Heart: present Impression /Plan: Intrauterine . 37 4/7 wk with SROM. Positive ROM. Hx of C section deliveries. Admit for repeat C/S and plans BPS. H and P generated at time and date of pt admission Mary Hinkle MD 06/23/19 9000
[2019-06-23] MEDS: Sodium Citrate/Citric Acid 30 ML UDC PO (04:30)
--- NOTE | 2019-06-23 04:37 | DCINST_ITS ---
Discharge Diet: No Restrictions Discharge Activity: May not drive while taking narcotic pain medications., May Shower, May Take a Tub Bath Return to work on:: 08/04/19 May resume sexual activity in: 4-6 weeks Lifting Restrictions: 20 pounds Additional Activity Instructions:: Nothing in the vagina for 4-6 weeks. You may return to work/school in 6 weeks. Change Dressing in (Days):: 7 Remove Dressing in (days):: 7 Cleanse incision/area with: Soap & Water, Keep Dressing Clean & Dry Additional Instructions: If you experience any of the following, contact your healthcare provider. * Bleeding that soaks a pad every hour for 2 hours * Fever 100.4 or higher * Unrelieved incision or abdominal pain * Swelling, redness, discharge or bleeding from your incision * Problems urinating (including inability to urinate or burning while urinating). * Visual changes * Severe headache * Flu-like symptoms * Pain or redness in one of both of your breasts * Pain, warmth, tenderness or swelling in your legs, especially the calf area * Frequent nausea and vomiting * Symptoms of depression or anxiety If you experience any of the following, call 911 or go to the nearest Emergency Room. * Chest pain * Problems breathing * Seizure activity * Partial or complete paralysis of a body part, slurred speech, weakness or drooping of the face, or a sudden inability to walk or hold your balance Allergies/Adverse Reactions: Allergies No Known Allergies Allergy (Verified 05/10/19 10:24) Medications to take at Discharge Vits [Prenatabs FA] 1 tab PO DAILY 07/11/17 Docusate Sodium [Colace] 100 mg PO BID #30 cap 06/23/19 Esomeprazole Mag Trihydrate [Nexium] 20 mg PO BID 06/23/19 Naproxen [Naprosyn] 250 - 500 mg PO TID PRN PRN #30 tab 06/23/19 Oxycodone [Oxyir] 5 mg PO Q6H PRN PRN 4 Days #15 tablet 06/23/19 Polyethylene Glycol 3350 [Miralax] 17 gm PO DAILY PRN #14 packet 06/23/19 Ranitidine [Zantac] 150 mg PO DAILY 06/23/19 The following prescriptions were given: Docusate Sodium [Colace] 100 mg PO BID #30 cap Transmission Status: Pending to [facility] Polyethylene Glycol 3350 [Miralax] 17 gm PO DAILY PRN #14 packet PRN Reason: Constipation Transmission Status: Pending to [facility] Naproxen [Naprosyn] 250 - 500 mg PO TID PRN PRN #30 tab PRN Reason: Mild-Mod Pain (-11/22) Transmission Status: Pending to [facility] Oxycodone [Oxyir] 5 mg PO Q6H PRN PRN 4 Days #15 tablet PRN Reason: Mod-Severe Pain (-04/24) Transmission Status: Sent to [facility] Follow-Up: Call to make an appointment with your doctor for an incision check in 1-2 weeks. You will also need a 6 week post- follow up appointment. Test results from this visit will be discussed in further detail at your follow- up appointment, if applicable. Please Follow Up With: Marlene Antonio MD - [phone] When: Call to make an appointment for an incision check in 2 weeks. Primary Care Physician: Care Physician,No Primary [Primary Care Provider] - Proposed Discharge Date: 06/26/19
[2019-06-23] MEDS: Cefazolin 2 GM in 0.9% Normal Saline 100 ML IV (04:45)
[2019-06-23 04:51] LABS: Amphetamine Urine VISTA NEGATIVE (<1000 ng/mL); Barbiturate Urine VISTA NEGATIVE (< 200 ng/mL); Benzodiazepine Urine VISTA NEGATIVE (< 200 ng/mL); Cocaine Urine VISTA NEGATIVE (< 300 ng/mL); Ecstacy Urine VISTA NEGATIVE (< 500 ng/mL); Methadone Urine VISTA NEGATIVE (< 300 ng/mL); PCP Urine VISTA NEGATIVE (< 25 ng/mL); THC Urine VISTA NEGATIVE (< 50 ng/mL); Vista UDS pH Range 6
--- NOTE | 2019-06-23 05:07 | FALS_PTH ---
PATIENT: JUSTYNA BOND LOC: [facility] U#:[id number] AGE/SX: 33/F ROOM: WP011 RE06/23/[address]: Dr. Marlene Antonio MD : [id number] BED: 1 DIS: 06/25/2019 SPEC #: [id number] RECD: 06/23/19 09:47 STATUS: FREEDOM KANWAL #: [id number] RAMA: 06/23/19 05:[address]: Marlene Antonio DEPT: SURGICAL PATHOLOGY RECD BY: Brown Coronel ENTERED: 06/23/19 09:47 SP TYPE: FALL TUBES OTHR DR: No Primary Care Phys Tissues: Fallopian tube Procedures: Surgery Specimen Level II HEADER OPERATION: Repeat section PRE-OP DIAGNOSIS: Not noted TISSUE SUBMITTED: Fallopian tube MICROSCOPIC DIAGNOSIS Right and left fallopian tubes, bilateral salpingectomies: Two complete cross sections of fallopian tubes with no pathologic change. AM:xiomy 06/24/19 MICROSCOPIC DESCRIPTION Slides are reviewed. GROSS DESCRIPTION Received is one container labeled with the patient name and designated bilateral fallopian tubes. The specimen consists of two tubular pieces of stoddard soft tissue. The left tube is identified by a suture. The right tube measures 1.5 cm in length and 1 cm in diameter. The tube with suture measures 2 cm in length and 0.7 cm in diameter. The entire specimen is submitted in two cassettes as follows: 1 - right tube, 2 - left tube. Both pieces will be sectioned at the time of imbedding. / BIA:xiomy 06/23/19 TC: 4 CPT: 63442 x2
--- NOTE | 2019-06-23 05:40 | PCM.OPRPT ---
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 plans repeat C/S and bilateral tubal occlusion Post-Operative Diagnosis: same Indications for : Repeat Elective - Prior C/S not a candidate for , Desires elective sterilization, - - SROM Description of Procedure: At amniotomy, clear fluid was noted. Blackmon viable female in vertex presentation. Apgars 8/9, Baby weight: 7# 13 oz There was a normal appearing uterus, fallopian tubes and ovaries bilaterally. There were minimal filmy adhesions between the bladder and lower uterine segment. Narrative account: After the risks, benefits and alternatives of the procedure were reviewed with the patient, informed consent was obtained. The patient was taken to the Operating room with an IV running, and placed in a seated position on the operating table for placement of the spinal. Once the spinal had been administered, she was briefly frog-legged for Sylvester catheter placement, and vaginal vault prep and then repositioned to dorsal supine position with leftward displacement of the uterus, and prepped and draped in the usual sterile fashion. Once the spinal was deemed adequate, a Pfannenstiel skin incision was created using the knife (through the prior skin incision scar). The incision was carried down to the rectus fascia using the knife. The fascia was nicked in the midline. The fascial incision was extended bilaterally using curved Melgoza scissors. The superior aspect of the fascial incision was grasped with Corinne clamps and tented up and the underlying rectus abdominal muscles were dissected free. In a similar manner, the inferior aspect of the facial incision was grasped with Corinne clamps tented up and the underlying rectus abdominal muscles were dissected free. The rectus abdominis muscles were in the midline and the peritoneum was identified and entered by blunt dissection high in the incision. The peritoneum was stretched laterally and a bladder blade was inserted. A bladder flap was created along the lower uterine segment with Metzenbaum scissors . The uterine incision was then created using Metzenbaum scissors. The operators fingertips were used to extend the uterine incision by blunt dissection in a caudad- cephalad orientation . Clear fluid was noted at amniotomy. The vertex was then delivered atraumatically through the incision. The OP and nares were bulb suctioned on the abdomen. The shoulders delivered easily . The cord clamped x two and cut. And the infant was handed off to the nurse awaiting delivery after briefly showing her to her parents. The baby had a spontaneous, vigorous cry. The placenta was then delivered. The uterus was exteriorized and cleared of clots and debris . The uterine incision was repaired with 1 Vicryl in a running locked fashion. A second imbricating layer was then placed, using 1 Monocryl in running nonlocked fashion. Bovie cautery was used to treat any bleeding areas . Excellent hemostasis was noted. At this point attention was then turned to the bilateral partial salpingectomy. The right fallopian tube was grasped at a relatively avascular midportion and a Renetta clamp was used to tent the tube up. A defect was created in the mesosalpinx using Bovie cautery. The proximal and distal ends of the fallopian tube were tied with a 2-0 catgut. A knuckle of the tube was then tied off inferior to these 2 ties placed prior. A segment of the right fallopian tube was then excised using Metzenbaum scissors. Bovie cautery was used at the tubal stumps to assure continued hemostasis. The tubal segment was set aside for later pathology review. In a similar manner the left fallopian tube partial salpingectomy was performed. Excellent hemostasis was noted at both tubal segments. The two portions of the completely transected fallopian tubes were set aside for later pathology review. At this point the uterus was returned to the abdominal cavity. The gutters were cleared of clots and debris and the incision at the uterus was inspected. Several horizontal mattress stitches of 1 Vicryl were placed as needed for hemostasis and Bovie cautery was used at the serosal surfaces as needed for hemostasis of bleeding serosal decidual reaction at these locations. Excellent hemostasis was noted. Geena was applied across the uterine incision for additional hemostasis. The peritoneal edges and rectus abdominis muscles were reapproximated in the midline with a series of vertical mattress stitches of 1 Vicryl. Excellent hemostasis was noted at the subfascial space Geena was applied to this layer. The fascia was closed in a running nonlocked fashion with a Stratofix. The Subcutaneous fatty tissue was Bovie cauterized as needed for hemostasis. Geena was applied to this layer and the excess blotted off with a moistened laparotomy sponge. This layer was then reapproximated in a single layer closure of running 3-0 Vicryl to eliminate space. The skin edges were closed in a Subcuticular stitch of 4-0 Monocryl. The incision was cleansed. Cavilon, Steristrips, and Mepilex dressing were applied to the skin . The patient was then transferred to the recovery room bed in stable condition after tolerating the procedure well. Sponge, lap, needle and instrument counts correct times two. Medications given preop and intraoperatively included: Ancef 3 gm IV given pilot control operator helper to the operating room. The patient also received Pitocin given IV after cord clamp, and Toradol 30 mg IV times one. For a complete listing of medications given preop and intraoperatively, please see the anesthesia record. Amniotic Membrane Rupture Type: Spontaneous Amniotic Fluid Description: Clear Placenta Disposition: [facility] Drain: Sylvester to straight drain Fluids Replaced: LR Cord Entanglement: None Cord Vessel Description: 3 Vessels Esitmated Blood Loss (ml): 600 Gender: Female (1 minute): 8 - 8# 12 oz (5 minute): 9 Delayed cord clamping: No Antibiotic Given: Ancef 3 grams IV x1 Pt instructed on risks of surgery: Bleeding, Anesthesia Risks, Permanency, Failure Rate of 1 to 2% Complications: None - Admit VTE Documentation VTE Present on Admission: No VTE Mechan Device Prophylaxis: SCD's VTE Pharm Prophylaxis ordered?: Yes
[2019-06-23] MEDS: Oxytocin 30 units/NS 500 ml 30 UNITS/500 ML IV.SOLN 167 UNITS IV (06:12)
[2019-06-23 06:46] LABS: Pathology Specimen OB SEE PATHOLOGY REPORT
[2019-06-23] MEDS: Lactated Ringers 1,000 ML 100 ML IV (09:12)
[2019-06-23] MEDS: Enoxaparin 40 MG/0.4 ML Syringe SC ×2 (10:12→22:45)
[2019-06-23] MEDS: Ketorolac 30 MG/ML Syringe IV ×3 (10:12→22:43)
[2019-06-23] MEDS: Pantoprazole Sodium 20 MG Tablet PO ×2 (10:12→22:45)
[2019-06-23] MEDS: Famotidine 20 MG Tablet PO (10:12)
[2019-06-23] MEDS: Prenatal Vits Tablet 1 TABLET PO (10:13)
[2019-06-23] MEDS: 0.9% Saline Lock 10 ML Syringe IV ×4 (16:52→22:46)
[2019-06-24] VITALS (7 sets, daily range): BP systolic 108–129; BP diastolic 60–83; PULSE 75–90; RESP 16–18; TEMP 36.3–36.8; O2SAT 97–98
[2019-06-24] MEDS: 0.9% Saline Lock 10 ML Syringe IV ×4 (04:45→16:54)
[2019-06-24] MEDS: Ketorolac 30 MG/ML Syringe IV ×4 (04:45→22:49)
[2019-06-24] MEDS: Senna/Docusate Sodium 1 Tablet PO (04:58)
[2019-06-24 05:51] LABS: Hematocrit 32.2 % (37-47); Hemoglobin 10.3 g/dL (12.0-15.0); Mean Corpuscular Hgb 27.6 pg (27.0-32.0); Mean Corpuscular Volume 86.3 fL (81-99); Platelet Count 159 K/mm3 (150-450); RBC Distribution Width CV 14.1 % (11.6-14.6); Red Blood Count 3.73 M/mm3 (4.2-5.4); White Blood Count 9.8 K/mm3 (4.4-11.0)
[2019-06-24] MEDS: Acetaminophen 500 MG Tablet 1000 MG PO (07:22)
--- NOTE | 2019-06-24 08:41 | PN.OBGYN_ITS ---
Subjective: Pain in shoulders and neck /10, incision feels okay. Daughter is , but very tired. Wishes to go home tomorrow, but still wants IV medicine today. Objective: POD #1 S/P Repeat , VSS, incision CDI with small [place] of old blood. female . Fundus u/1. Lochia rubra normal . IV Toradol continues, will start oral medication tomorrow. - Physical Exam Vitals/I&O's: Vital Signs Temp Pulse Resp BP Pulse Ox 98 F 76 18 118/67 98 06/24/19 07:44 06/24/19 07:44 06/24/19 07:44 06/24/19 07:44 06/24/19 04:47 Oxygen Delivery Method Room Air Weight: 115.3 kg Body Mass Index (BMI) 42.3 Intake and Output for Last 24 Hours 06/22/19 06/23/19 06/24/19 23:59 23:59 23:59 Intake Total 3892.75 / 3892.75 Output Total 350 / 1250 1500 / 1500 Balance 3542.75 / 2642.75 -1500 / -1500 General: Alert, Oriented x3, Cooperative HEENT: Atraumatic, PERRLA, EOMI, Normocephalic Neck: Supple, No JVD, Negative Carotid Bruits Lungs: Clear to auscultation, Normal air movement Cardiovascular: Regular rate, No murmurs Abdomen: Bowel Sounds Present, Soft, Non Tender, Passing Flatus, Tender - Incision CDI with old scant drainage circled Extremities: No edema, Capillary Refill Less than 3 Seconds Skin: No rashes, No breakdown, Incision - Csection Musculoskeletal: No Tenderness to Palpation of Joints or Extremities Neurological: Cranial nerves II-XII grossly intact Psych/Mental Status: Normal Affect, Appropriate Laboratory Results 06/24/19 05:40: WBC 9.8, RBC 3.73 L, Hgb 10.3 L, Hct 32.2 L, MCV 86.3, MCH 27.6, MCHC 32.0, RDW Std Deviation 44.0 H, RDW Coeff of Onel 14.1, Plt Count 159, MPV 11.0 Current Medications Acetaminophen (Tylenol) 1,000 mg PO Q8H PRN PRN Reason: Pain Score 1-3/10 Last Admin: 06/24/19 07:22 Dose: 1,000 mg Documented by: Bisacodyl (Dulcolax) 10 mg RECTAL UD PRN PRN Reason: If no BM Enoxaparin Sodium (Lovenox) 40 mg SC BID [facility] Last Admin: 06/23/19 22:45 Dose: 40 mg Documented by: Famotidine (Pepcid) 20 mg PO DAILY [facility] Last Admin: 06/23/19 10:12 Dose: 20 mg Documented by: Hydrocortisone (Hytone) 1 applic TOPICAL TID PRN PRN; Protocol PRN Reason: Discomfort Naloxone HCl 4 mg/ Dextrose 504 mls @ 0 mls/hr IV .Q0M PRN; Protocol PRN Reason: Respiratory depression Ketorolac Tromethamine (Toradol) 30 mg IV Q6H [facility] Stop: 06/25/19 05:01 Last Admin: 06/24/19 04:45 Dose: 30 mg Documented by: Methylergonovine Maleate (Methergine) 0.2 mg IM X1 PRN PRN Reason: Uterine Atony Naloxone HCl (Narcan) 0.02 mg IV Q1M PRN PRN Reason: RR <10 and pt unresponsive Naproxen (Naprosyn) 250 - 500 mg PO Q8H PRN PRN PRN Reason: Pain Score 1-3/10 Ondansetron HCl (Zofran) 4 mg IV Q4H PRN PRN PRN Reason: Nausea Oxycodone HCl (Oxyir) 5 - 10 mg PO Q4H PRN PRN PRN Reason: Pain Score 4-10/10 Pantoprazole Sodium (Protonix) 20 mg PO BID [facility] Last Admin: 06/23/19 22:45 Dose: 20 mg Documented by: Multivit/Folic Acid/Iron (Prenatabs Fa) 1 tablet PO DAILY [facility] Last Admin: 06/23/19 10:13 Dose: 1 tablet Documented by: Prochlorperazine Edisylate (Compazine Iv) 10 mg IV Q6H PRN PRN PRN Reason: NAUSEA Senna/Docusate Sodium (Senokot-S, Niesha-Colace) 0 tablet PO DAILY PRN PRN Reason: Constipation Last Admin: 06/24/19 04:58 Dose: 1 tablet Documented by: Simethicone (Mylicon) 80 mg PO PCHS PRN PRN Reason: Indigestion/stomach pain Sodium Chloride () 5 - 15 ml IV UD PRN PRN Reason: SALINE FLUSH Last Admin: 06/24/19 04:47 Dose: 10 ml Documented by: Zolpidem Tartrate (Ambien (Generic)) 5 mg PO QHS PRN PRN PRN Reason: Insomnia Medical Necessity - Tobacco Use Smoking Status: Former smoker Assessment/Plan All Active Problems (Last Updated 12/25/18 @ 14:16 by Mirian Oliva) Gastroenteritis (Acute) Threatened in second trimester (Acute) 15 weeks gestation of (Acute) Dehydration (Acute) Hypokalemia (Acute) A: POD #1 Repeat female P: Continue pain medication IV, will transition to oral medication Continue stool softeners PRN Encouraged ambulation, may use abdominal binder Continue to breastfeed with support PRN
--- NOTE | 2019-06-24 08:41 | PN.OBGYN_ITS ---
Subjective: POD#1 Repeat C/S at 37 1/2 wk in labor. SROM. Sterilization request: BPS. Objective: Standing at bedside. enriquez out IV to S/L. Trying to wake baby to nurse. - Physical Exam Vitals/I&O's: Vital Signs Temp Pulse Resp BP Pulse Ox 98 F 76 18 118/67 98 06/24/19 07:44 06/24/19 07:44 06/24/19 07:44 06/24/19 07:44 06/24/19 04:47 Oxygen Delivery Method Room Air Weight: 115.3 kg Body Mass Index (BMI) 42.3 Intake and Output for Last 24 Hours 06/22/19 06/23/19 06/24/19 23:59 23:59 23:59 Intake Total 3892.75 / 3892.75 Output Total 350 / 1250 1500 / 1500 Balance 3542.75 / 2642.75 -1500 / -1500 General: Alert, Oriented x3, Cooperative, No apparent distress HEENT: Atraumatic, EOMI Neck: Supple Neurological: Cranial nerves II-XII grossly intact Psych/Mental Status: Normal Affect Laboratory Results 06/24/19 05:40: WBC 9.8, RBC 3.73 L, Hgb 10.3 L, Hct 32.2 L, MCV 86.3, MCH 27.6, MCHC 32.0, RDW Std Deviation 44.0 H, RDW Coeff of Onel 14.1, Plt Count 159, MPV 11.0 Current Medications Acetaminophen (Tylenol) 1,000 mg PO Q8H PRN PRN Reason: Pain Score 1-3/10 Last Admin: 06/24/19 07:22 Dose: 1,000 mg Documented by: Bisacodyl (Dulcolax) 10 mg RECTAL UD PRN PRN Reason: If no BM Enoxaparin Sodium (Lovenox) 40 mg SC BID [facility] Last Admin: 06/23/19 22:45 Dose: 40 mg Documented by: Famotidine (Pepcid) 20 mg PO DAILY [facility] Last Admin: 06/23/19 10:12 Dose: 20 mg Documented by: Hydrocortisone (Hytone) 1 applic TOPICAL TID PRN PRN; Protocol PRN Reason: Discomfort Naloxone HCl 4 mg/ Dextrose 504 mls @ 0 mls/hr IV .Q0M PRN; Protocol PRN Reason: Respiratory depression Ketorolac Tromethamine (Toradol) 30 mg IV Q6H [facility] Stop: 06/25/19 05:01 Last Admin: 06/24/19 04:45 Dose: 30 mg Documented by: Methylergonovine Maleate (Methergine) 0.2 mg IM X1 PRN PRN Reason: Uterine Atony Naloxone HCl (Narcan) 0.02 mg IV Q1M PRN PRN Reason: RR <10 and pt unresponsive Naproxen (Naprosyn) 250 - 500 mg PO Q8H PRN PRN PRN Reason: Pain Score 1-3/10 Ondansetron HCl (Zofran) 4 mg IV Q4H PRN PRN PRN Reason: Nausea Oxycodone HCl (Oxyir) 5 - 10 mg PO Q4H PRN PRN PRN Reason: Pain Score 4-10/10 Pantoprazole Sodium (Protonix) 20 mg PO BID [facility] Last Admin: 06/23/19 22:45 Dose: 20 mg Documented by: Multivit/Folic Acid/Iron (Prenatabs Fa) 1 tablet PO DAILY [facility] Last Admin: 06/23/19 10:13 Dose: 1 tablet Documented by: Prochlorperazine Edisylate (Compazine Iv) 10 mg IV Q6H PRN PRN PRN Reason: NAUSEA Senna/Docusate Sodium (Senokot-S, Niesha-Colace) 0 tablet PO DAILY PRN PRN Reason: Constipation Last Admin: 06/24/19 04:58 Dose: 1 tablet Documented by: Simethicone (Mylicon) 80 mg PO PCHS PRN PRN Reason: Indigestion/stomach pain Sodium Chloride () 5 - 15 ml IV UD PRN PRN Reason: SALINE FLUSH Last Admin: 06/24/19 04:47 Dose: 10 ml Documented by: Zolpidem Tartrate (Ambien (Generic)) 5 mg PO QHS PRN PRN PRN Reason: Insomnia Medical Necessity - Tobacco Use Smoking Status: Former smoker Assessment/Plan POD#1 Repeat C/S SROM in labor. 37 1/2 wk. Bilateral partial salpingectomy Stable postop . Hgb stable. continue routine care. Inc diet and activity as tolerated. PO meds prn. IV S/L for continued toradol today. Assist prn with nursing.
[2019-06-24] MEDS: Enoxaparin 40 MG/0.4 ML Syringe SC ×2 (10:10→22:54)
[2019-06-24] MEDS: Famotidine 20 MG Tablet PO (10:11)
[2019-06-24] MEDS: Prenatal Vits Tablet 1 TABLET PO (10:11)
[2019-06-24] MEDS: Pantoprazole Sodium 20 MG Tablet PO ×2 (10:11→22:54)
[2019-06-25] MEDS: Acetaminophen 500 MG Tablet 1000 MG PO ×2 (02:46→12:45)
[2019-06-25 02:49] VITALS: BP 129/87; PULSE 73; RESP 18; TEMP 36.7; O2SAT 98
[2019-06-25] MEDS: Naproxen 250 MG Tablet PO (05:05)
--- NOTE | 2019-06-25 07:39 | PN.OBGYN_ITS ---
Subjective: POD#2 Repeat C/S Labor SROM Doing well. States poor sleep 2/2 bed and caring for baby. Baby is nursing well. Plans to go home today. Spouse at home and will be able to help with care. Pain control adequate no other concerns. - Physical Exam Vitals/I&O's: Vital Signs Temp Pulse Resp BP Pulse Ox 98.0 F 73 18 129/87 H 98 06/25/19 02:49 06/25/19 02:49 06/25/19 02:49 06/25/19 02:49 06/25/19 02:49 Oxygen Delivery Method Room Air Weight: 115.3 kg Body Mass Index (BMI) 42.3 Intake and Output for Last 24 Hours 06/23/19 06/24/19 06/25/19 23:59 23:59 23:59 Intake Total 3892.75 / 3892.75 Output Total 350 / 1250 1800 / 1800 Balance 3542.75 / 2642.75 -1800 / -1800 General: Alert, Oriented x3, Cooperative, No apparent distress HEENT: Atraumatic, EOMI Neck: Supple Abdomen: Soft - Fundus firm tender c/w postop status. At approx 2 cm inferior to umbilicus Skin: Incision - Mepliex removed. Steristrips intact old dischg noted. Bruising noted superior to incision in pattern (possibly 2/2 retractors used) Neurological: Cranial nerves II-XII grossly intact Psych/Mental Status: Normal Affect Current Medications Acetaminophen (Tylenol) 1,000 mg PO Q8H PRN PRN Reason: Pain Score 1-3/10 Last Admin: 06/25/19 02:46 Dose: 1,000 mg Documented by: Bisacodyl (Dulcolax) 10 mg RECTAL UD PRN PRN Reason: If no BM Enoxaparin Sodium (Lovenox) 40 mg SC BID [facility] Last Admin: 06/24/19 22:54 Dose: 40 mg Documented by: Famotidine (Pepcid) 20 mg PO DAILY [facility] Last Admin: 06/24/19 10:11 Dose: 20 mg Documented by: Hydrocortisone (Hytone) 1 applic TOPICAL TID PRN PRN; Protocol PRN Reason: Discomfort Naloxone HCl 4 mg/ Dextrose 504 mls @ 0 mls/hr IV .Q0M PRN; Protocol PRN Reason: Respiratory depression Methylergonovine Maleate (Methergine) 0.2 mg IM X1 PRN PRN Reason: Uterine Atony Naloxone HCl (Narcan) 0.02 mg IV Q1M PRN PRN Reason: RR <10 and pt unresponsive Naproxen (Naprosyn) 250 - 500 mg PO Q8H PRN PRN PRN Reason: Pain Score 1-3/10 Last Admin: 06/25/19 05:05 Dose: 500 mg Documented by: Ondansetron HCl (Zofran) 4 mg IV Q4H PRN PRN PRN Reason: Nausea Oxycodone HCl (Oxyir) 5 - 10 mg PO Q4H PRN PRN PRN Reason: Pain Score 4-10/10 Pantoprazole Sodium (Protonix) 20 mg PO BID [facility] Last Admin: 06/24/19 22:54 Dose: 20 mg Documented by: Multivit/Folic Acid/Iron (Prenatabs Fa) 1 tablet PO DAILY [facility] Last Admin: 06/24/19 10:11 Dose: 1 tablet Documented by: Prochlorperazine Edisylate (Compazine Iv) 10 mg IV Q6H PRN PRN PRN Reason: NAUSEA Senna/Docusate Sodium (Senokot-S, Niesha-Colace) 0 tablet PO DAILY PRN PRN Reason: Constipation Last Admin: 06/24/19 04:58 Dose: 1 tablet Documented by: Simethicone (Mylicon) 80 mg PO PCHS PRN PRN Reason: Indigestion/stomach pain Sodium Chloride () 5 - 15 ml IV UD PRN PRN Reason: SALINE FLUSH Last Admin: 06/24/19 16:54 Dose: 10 ml Documented by: Zolpidem Tartrate (Ambien (Generic)) 5 mg PO QHS PRN PRN PRN Reason: Insomnia Medical Necessity - Tobacco Use Smoking Status: Former smoker Assessment/Plan POD#2 Repeat C/S SROM in labor. 37 1/2 wk. Bilateral partial salpingectomy Stable postop . Nursing well. Requesting dischg to home. Reviewed activity restrictions, postop recovery, RTO In 1-2 wk for Postop check.
[2019-06-25 08:35] VITALS: BP 130/84; PULSE 83; RESP 18; TEMP 36.7
[2019-06-25] MEDS: Pantoprazole Sodium 20 MG Tablet PO (12:00)
[2019-06-25] MEDS: Prenatal Vits Tablet 1 TABLET PO (12:01)
[2019-06-25] MEDS: Famotidine 20 MG Tablet PO (12:02)
[2019-06-25] MEDS: Enoxaparin 40 MG/0.4 ML Syringe SC (12:02)
--- NOTE | 2019-06-25 12:15 | CASEMGMT ---
Addendum entered and electronically signed by Neva Edwards 06/25/19 16:51: For clarification: father's last name documented as Annie in error and should read as Chantell. Also, Steele depression screen addressed with MOB. -PIETER Moore, STORE HAND Original Note: Social Work Assessment Labor and Delivery Unit Patient Address: [facility] [place] [address] Phone number: [phone] Date of Referral: 06.25.2019 Time of Referral: [id number] Referred By: Dr. Antonio Date of Intervention: 06.25.2019 Time of Intervention: 0 Reason for Referral: maternal use of marijuana in early History obtained from: medical records, mother of baby (MOB) Pati Valencia, and father of baby (FOB) Chalino Valencia. Household composition: MOB, FOB, and 3 older children live in a home. Plan for baby to live in this home which is reported to be safe and adequate. Patient's parent/guardian status: MOB age 33 is to FOB for the last 2 years. Privately spoke wiht JENI who denies any form of abuse in this relationship. MOB and FOB each brought children to the marriage with baby being the first viable for the pair together. Children include in the home include: Darwin, born January 2016 - MOB as 19 at time of and the father was 15. The father has no real involvement but is ordered to pay child support. Ihsan, born March of 2011 - MOB was with Ihsan's father for 8 years. This father helps pay for things and takes Ihsan on visits. Karen - is PHILLIP's daughter and the child is age 6. PHILLIP reports has had custody since Karen was 9 months old. baby, ilda Pizarro on 06.23.2019. *MOB and FOB had one other child, Ian, who was born at 19 weeks gestation on 10.06.2018, born with heartbeat and dying shortly after . Medical History: JENI is G4, P2 to 3 after delivering Moira. One19 week loss in 2018. care this starting in the first trimester. Baby Moira born at 37 weeks, weight 8 pounds 12 ounces. Apgars 8 and 9 at 1 and 5 minutes of life. Educational Status: MOB has high school education . No reported issues with reading, writing, or learning comprehension. Financial Status: MOB works at [employer]. PHILLIP is trying to get disability as has been off of work since 04/2017 when injured at work. MOB is ordered to get child support but this is not consistent. FOB's mother reportedly helps when the family needs extra support. Supplies: MOB reports to have needed supplies, including cribs, bassinet, pack-n-play, clothing, diapers, wipes, breast pump, bottles, car seat. Childcare/Caregiver(s): MOB and FOB. FOB watches the kids when MOB is at work. Transportation: No reported issues. Programs/Agencies Involved: Food and medical through S. Active with [facility]. [facility]. Children Services/Legal Issues: MOB denies past or present involvement with children services. Behavioral Health Issues: Mental Health History: MOB reports had some grief and depression after the of Ian, sought out counseling at [facility] and also on medication for a short term. MOB reports was on Paxil but did not find this helpful. MOB denies any history of suicidal ideation, planning, intent, or attempts. MOB reports to feel that could never take her life, and sees this as a cowards way to . Substance Use History: No reports of alcohol abuse or illicit drug use history other than marijuana. MOB indicates that used this substance after Ian and this continued off and on, continuing into the beginning of the for which MOB reports use helped MOB to have an appetite. MOB report had lost weight instead of gaining initially. MOB reports was worried about the baby not having nutrients and found marijuana help MOB to be able to eat. MOB reports after being talked to about continued use by the OBGYN, MOB ceased use in the first trimester. Family History: MOB reports to have a brother with schizophrenia and possibly anxiety or depression. Drug Screens: maternal drug screen positive on 12.06.2018 and then negative at delivery on 06.23.2019. Baby's urine is negative and meconium is pending. Family/Social Stressors: MOB and FOB share significant stressors over the last couple of years including FOB becoming inured at work, losing home due to filing a complaint with the landlord to fix something, living in a camper all summer and not getting current home until the very last minute before the campground closed for the summer. During that time of housing instability MOB and FOB experienced the loss. It is reported that much of stressors have improved. MOB is primary support to the family for income while FOB is waiting on disability. Support Systems: MOB reports FOB is primary support person. Additional support from fob's mother, friend,s and then MOB's' family lives in [place]. Depression/Shaken Baby/Safe Sleeping : Reviewed safe sleeping and shaken baby prevention, to which parents able to give appropriate responses. Educated MOB and FOB to mood and anxiety disorders, risk factors present, and importance of self care should symptoms arise and/or if start to impact daily functioning. ASSESSMENT: Met with MOB and FOB together and then with MOB alone. MOB and FOB both contributed to conversation, but FOB did tend to at times take over conversation. FOB made comment that sometimes MOB is not clear in what trying to say so FOB sometimes has to interpret. MOB disagreed quietly with FOB. This science writer had no issues understanding anything the MOB was trying to say, or in how MOB answered the questions. FOB did present as supportive overall though, expressing support of MOB's mental raghav and MOB and FOB both taking care of own issues after loss of Ian, before being ready to become with Moira. MOB with good eye contact, appropriate mood and affect. MOB's demeanor the same with or without FOB present and FOB was willing to allow MOB and this science writer privacy to talk. While talking to MOB privately did address the use of marijuana. MOB reports this is a safe topic to speak about in front of FOB. MOB reports plan to continuing to abstain from said substance. MOB report to know someone who just got done with children services due to use of marijuana and MOB reports continued use is just not worth it as it impacts the family. FOB did come back to room, and did express he is for medicinal use of marijuana and that while he and MOB know this was not the best decision on their part, for MOB to use marijuana in early , this choice was made out of anxiety from loss in 2018 and wanting to ensure MOB was able to eat and provide nutrients to the Moira. Educated MOB that should baby's meconium come back positive that children services would have to make contact, to which MOB expressed understanding. Do not anticipate positive results though, based on last reported use in the first trimester. MOB and FOB report to have adequate support from family and friends, to have needed supplies and FOB will be at home to help MOB with care of children. Safe Plan of Care for related to substance use: primary plan is to abstain from future marijuana use. Should something change then no use in front of or around the kids, and no breast feeding (would go to formula feeding). PLAN: MOB and baby to home with help from . [facility] resource packet given. mood and anxiety disorder packet also given that includes local, online, texting and reading materials/supports. No other services requested or indicated. -JANNIE Kemp, STORE HAND
[2019-06-25] MEDS: Senna/Docusate Sodium 1 Tablet PO (12:45)
[2019-06-25 12:59] VITALS: BP 138/88; PULSE 76; RESP 16; TEMP 36.6
[2019-06-25 13:00] VITALS: BP 138/88; PULSE 76; RESP 16; TEMP 36.6
[2019-06-25 13:27] VITALS: BP 138/88; PULSE 76; RESP 16; TEMP 36.6
--- NOTE | 2019-06-25 13:38 | PN_ITS ---
Progress Note Called by RN with slightly elevated BPs 130s/80s. Is discharging home. Instructions to return in 1 week for incision and BP check. Nursing to give Pre- E education with warning signs to patient before discharge. STROKE Vital Signs/Narrative: Vital Signs Temp Pulse Resp BP BP 06/25/19 13:27 97.9 F 76 16 138/88 H 06/25/19 12:59 97.9 F 76 16 138/88 H
--- NOTE | 2019-06-25 16:45 | NURSING ---
Spoke with Tia a nurse at Dr. Antonio office about patients BP being slightly elevated. Tia stated to have patient make appointment for [address] Antonio for incision check and BP check. I also gave patient the pre-e handout and discussed signs and symptoms with her. Pt states understanding.
== END 2019-06-25 14:10 | disposition home or self-care (01) | DRG 539 ==
PROVIDERS: Admitting Provider Obstetrics & Gynecology; Referring Provider Obstetrics & Gynecology; Visit Provider Obstetrics & Gynecology
DX: O34.211 Maternal care for low transverse scar from previous cesarean delivery (principal); O99.214 Obesity complicating childbirth; E66.01 Morbid (severe) obesity due to excess calories; Z3A.37 37 weeks gestation of pregnancy; Z37.0 Single live birth
CPT/HCPCS: 59025; 59050; 80307; 84112; 85025; 85027; 86850; 86900; 86901; 88302; 99218; J7120; A4216; G0378; J2405

== ENCOUNTER 2019-07-08 11:36 | Emergency (ER) | payer MEDICAID, SELFPAY ==
[2019-06-23 03:14] VITALS: BMI 42.3
[2019-07-08 11:37] VITALS: BP 145/79; PULSE 73; RESP 18; TEMP 36.6; O2SAT 99; BMI 39.9
--- NOTE | 2019-07-08 11:59 | ED.DCSUM_ITS ---
- ER Visit Summary Date of Service: 07/08/19 Chief Complaint: [Rash] History of Present Illness: The patient is a 33 F [presents to the emergency department with a rash that started 3 days ago. Patient states the rash initially started on her left arm and thought maybe it was eczema. Patient denies any new soaps, detergents, or other contacts that may have triggered this rash. Patient recently gave to a baby via 2 weeks ago. Her last oxycodone dose was about a week and 1/2 to 2 weeks ago which she has had multiple times in the past and never had an issue with. Patient denies eating any unusual foods. Denies lip or tongue swelling. She denies difficulty breathing.] Physical Examination: [HEENT-PERRLA, EOMI. Cranial nerves II through XII grossly intact. TMs clear. Mucous membranes moist. No adenopathy. Cardiovascular-regular rate and rhythm without murmur or ectopy Lungs-clear to auscultation, chest wall stable without crepitus or subcu emphysema Abdomen-normoactive bowel sounds, soft, nontender, no rebound or rigidity, no peritoneal signs. Skin exam-patient has a erythematous rash involving the face as well as the anterior neck and upper chest and as well as the upper extremities on the volar surfaces and the anterior upper thighs bilaterally. Rash has some inflammatory properties to it and blanches. No vesicles. No petechiae. Extremities-intact ?4, normal range of motion, normal pulses, atraumatic] Test Results: [None indicated] Emergency Department Course and Treatment: [Patient was medicated with prednisone 40 mg p.o. As I suspect patient likely has a contact dermatitis. The rash does not involve the posterior aspect of her body.] Treatment Plan: [Patient will be treated with prednisone for 5 days. Given that patient is lactating and nursing she is advised against Benadryl as the at this time.] Disposition: [Discharged home in stable condition. Patient referred to dermatology for follow-up if symptoms do not improve.] Impression: [Contact dermatitis] This note was generated with [employer] software. It may contain incorrect words, spelling, and punctuation that were not noted in review of the chart prior to signing ED Disposition - Plan for ED Patient: Referrals: Care Physician,No Primary [Primary Care Provider] -
--- NOTE | 2019-07-08 12:02 | ED.DEP ---
ED Disposition - Plan for ED Patient: Instructions: DERMATITIS, Non-Specific, Contact Dermatitis Prescriptions: Prednisone [Deltasone] 20 mg PO BID #12 tab Prescription Printed Referrals: Care Physician,No Primary [Primary Care Provider] - Thomas Rivera MD [STAFF PHYSICIAN] - 5-7 Days
[2019-07-08] MEDS: predniSONE 20 MG Tablet 40 MG PO (12:17)
[2019-07-08 12:20] VITALS: RESP 16
--- NOTE | 2019-07-08 12:20 | ED.RN ---
REVIEWED D/C INSTRUCTIONS, FOLLOW UP CARE, PRESCRIPTION, AND S/S THAT WOULD WARRANT A RETURN TO THE ED WITH PT. PT VERBALIZED AN UNDERSTANDING AND DENIES FURTHER QUESTIONS FOR THIS RN. PT SKIN P/W/D, RESP EVEN AND UNLABORED, PT A&O X 3, NO DISTRESS NOTED. PT AMBULATED OUT OF ED, GAIT STEADY.
== END 2019-07-08 12:22 | disposition home or self-care (01) ==
LOC: ED 12:11
PROVIDERS: Emergency Provider Emergency Medicine
DX: O99.73 Diseases of the skin and subcutaneous tissue complicating the puerperium (principal); L25.9 Unspecified contact dermatitis, unspecified cause
CPT/HCPCS: 99283

== ENCOUNTER → 2020-06-03 16:24 | Outpatient (CLI) | payer MEDICAID, SELFPAY ==
[2020-06-08 04:09] LABS: Chlamydia By Nucleic Acid AMP Negative (Negative)
[2020-06-08 08:08] LABS: Gonococcus By Nucleic Acid AMP Negative (Negative)
== END ==
PROVIDERS: Visit Provider Obstetrics & Gynecology
DX: Z11.3 Encounter for screening for infections with a predominantly sexual mode of transmission (principal)
CPT/HCPCS: 87491; 87591

== ENCOUNTER 2020-12-02 11:47 | Emergency (ER) | payer MEDICAID, SELFPAY ==
[2020-12-02 11:48] VITALS: BP 147/77; PULSE 70; RESP 18; TEMP 36.7; O2SAT 99; BMI 40.2
--- NOTE | 2020-12-02 11:57 | EKG12_ITS ---
Test Reason : Blood Pressure : / mmHG Vent. Rate : 062 BPM Atrial Rate : 062 BPM P-R Int : 160 ms QRS Dur : 090 ms QT Int : 396 ms P-R-T Axes : 053 032 023 degrees QTc Int : 401 ms Normal sinus rhythm with sinus arrhythmia Normal ECG Confirmed by KILLIAN NEWSOME, JOSE ([id number]), script editor BLUE CANELA ([id number]) on 12/07/2020 9:59:48 AM Referred By: TANNA Confirmed By:YOLANDA DAILY MD
--- NOTE | 2020-12-02 11:57 | RAD_ITS ---
STUDY: X-RAY CHEST REASON FOR EXAM: Female, 35 years old. Substernal chest pain TECHNIQUE: PA and lateral views of the chest. COMPARISON: 11/27/2018 FINDINGS: The lungs are clear and expanded. There is no demonstrated pleural abnormality. Normal size heart. Normal mediastinum and cristiana. Normal visualized pulmonary arteries. Normal visualized aortic arch and descending thoracic aorta. Normal visualized thoracic spine. Normal visualized ribs, clavicles, and shoulders. There is no demonstrated abnormality of the visualized soft tissue structures of the upper abdomen. RAD/Chest PA and Lateral IMPRESSION: No acute pulmonary process, no interval change Electronically Signed: Dar Dawson MD at 12:35 EDT , Service support ,
--- NOTE | 2020-12-02 11:59 | EDS_ITS ---
HPI History of Present Illness Chief Complaint: Chest Other Narrative Narrative: Patient presents with chest pain on the right side of the chest that started 1 month ago she has had every day constantly. It is achy, slightly sharp. There is no pleuritic component. The pain does not radiate into the back. There is no tearing sensation. Patient denies any leg pain or calf pain, no lower extremity edema. No DVT or PE risk factors. No recent fever chills cough or congestion. [facility] Medical History (Updated 12/02/20 @ 12:[address] Enrrique Torres MD) 15 weeks gestation of Acid reflux Anxiety Constipation Dehydration Diarrhea Fibromyalgia Gastroenteritis Hemorrhoids Hypokalemia Nausea and vomiting Threatened in second trimester Home Medications amitriptyline 10 mg PO DAILY 12/02/20 [History Last Taken Unknown] duloxetine [Cymbalta] 20 mg PO DAILY 12/02/20 [History Last Taken Unknown] dupilumab [Dupixent Pen] 300 mg SUBCUT QWEEK 12/02/20 [History Last Taken Unknown] hydroxyzine HCl 25 mg PO DAILY 12/02/20 [History Last Taken Unknown] naproxen [Naprosyn] 500 mg PO BID #20 tab 12/02/20 [Rx Last Taken Unknown] omeprazole magnesium [Prilosec OTC] 20 mg PO DAILY 12/02/20 [History Last Taken Unknown] Allergy/AdvReac Type Severity Reaction Status Date / Time No Known Allergies Allergy Verified 12/02/20 11:48 Family History (System 05/26/20 @ 13:54 by Josh Chapman) Father Thyroid disorder Surgical History H/O: History of cholecystectomy Social History (System 05/26/20 @ 13:54 by Josh Chapman) Smoking Status: Never smoker alcohol intake: never substance use type: does not use ROS ROS ED ROS Narrative Past medical history: Fibromyalgia Medications: Reviewed Social history: Noncontributory Review of systems: All systems negative except as indicated General: No fever Eyes: No visual changes ENT: No upper airway congestion, normal voice Neck: No neck pain Cardiovascular: Chest pain as in HPI Respiratory: No shortness of breath or cough Gastrointestinal: No abdominal pain, nausea vomiting or diarrhea Genitourinary: No dysuria Musculoskeletal: Denies myalgias no difficulty with ambulation Skin: No rash Neurological: No memory loss, confusion or any focal weakness Psych: No recent behavioral changes Hematologic: No easy bleeding or easy bruising EXAM Physical Exam Narrative Exam Narrative: Physical exam General: Well nourished, Well developed, No Acute Distress, she is slightly anxious Head: Normocephalic, Atraumatic Eyes: Conjunctiva not pale ENT: Moist mucous membranes Neck: Supple, Nontender, No lymphadenopathy Cardiovascular: Regular rate, Regular rhythm. Chest wall: There is somewhat reproducible chest wall pain starting in the anterior axillary line moving to the about the posterior axillary line on the right. There is no obvious rash. This is right below the axilla. Respiratory: No distress, CTA bilaterally Abdomen: Soft, Nontender, Nondistended Back: Nontender, Normal Inspection. Negative for: CVA tenderness Extremities: Nontender, No edema Skin: Normal color, No rash Neurological: Alert, Normal Strength, Normal Sensation Const Vital Signs: 12/02/20 11:48 12/02/20 11:55 Temperature 98.0 F Temperature Source Temporal Pulse Rate 70 Respiratory Rate 18 Respiratory Effort Normal Non-Labored Blood Pressure 147/77 H Blood Pressure Mean 100 Pulse Ox 99 Oxygen Delivery Method Room Air Heart Score History: Slightly/Non-Suspicious ECG: Normal Age: </= 45 years Risk Factors: 1 or 2 Risk Factors Troponin: </= Normal Limit Score: 1 MDM MDM MDM Narrative Medical decision making narrative: Patient has no signs or symptoms of DVT or PE. She is PERC negative. Her EKG is otherwise normal. I will discharge her in stable condition with reassurance. Radiography Diagnostic Testing: Radiology Impression Chest X-Ray 12/02/20 11:57 IMPRESSION: No acute pulmonary process, no interval change Electronically Signed: Dar Dawson MD at 12:35 EDT , Service support , Chest x-ray read by me and the radiologist does not show any signs of pneumonia. Treatment and Re-Evaluation Comments:: Normal sinus rhythm with a rate of 62. Normal OK and QTc interval. No ischemic changes. Discharge Plan Triage Chief Complaint: Chest Other ED Provider: Enrrique Torres Dx/Rx/DC Orders Clinical Impression: Acute chest wall pain Instructions: ED Chest Wall Pain, Costochondritis Prescriptions: New naproxen [Naprosyn] 500 mg tablet 500 mg PO BID Qty: 20 RF: 0 No Action amitriptyline 10 mg Tablet 10 mg PO DAILY RF: 0 hydroxyzine HCl 25 mg tablet 25 mg PO DAILY RF: 0 omeprazole magnesium [Prilosec OTC] 20 mg tablet,delayed release (DR/EC) 20 mg PO DAILY RF: 0 duloxetine [Cymbalta] 20 mg Capsule,Delayed Release(Dr/Ec) 20 mg PO DAILY RF: 0 Dupixent Pen 300 mg/2 mL Pen Injector 300 mg SUBCUT QWEEK RF: 0 Primary Care Provider: Richard Orozco Referrals: Richard Orozco MD [Primary Care Provider] - 2 Days Disposition Disposition: Home, self care
[2020-12-02 13:11] VITALS: PULSE 74; RESP 16; O2SAT 99
== END 2020-12-02 13:10 | disposition home or self-care (01) ==
PROVIDERS: Emergency Provider Emergency Medicine; PCP Family Medicine
DX: R07.89 Other chest pain (principal); K21.9 Gastro-esophageal reflux disease without esophagitis; F41.9 Anxiety disorder, unspecified; Z79.899 Other long term (current) drug therapy
CPT/HCPCS: 71046; 93005; 99282

== ENCOUNTER 2022-01-09 07:29 | Emergency (ER) | payer MEDICAID, SELFPAY ==
[2022-01-09 07:30] VITALS: BP 132/92; PULSE 69; RESP 17; TEMP 36.7; O2SAT 100; BMI 39.3
--- NOTE | 2022-01-09 07:55 | EX.ED.DYSGE1 ---
HPI History of Present Illness Chief Complaint: Other, Pain/Inj Informant: patient Narrative Narrative: 36-year-old female presenting to the emergency department for rectal pain. Patient states that this is been about 1 week. She states it feels like her hemorrhoids are inflamed. She has been trying multiple [id number] medications and some leftover prescription medicine for pain control but nothing seems to have helped. She has not visited with a surgeon in the past. She notes that there was a couple episodes of bleeding on day 1 but none since. No diarrhea. No fever. [facility] Medical History 15 weeks gestation of Acid reflux Anxiety Constipation Dehydration Diarrhea Fibromyalgia Gastroenteritis Hemorrhoids Hypokalemia Nausea and vomiting Threatened in second trimester Home Medications amitriptyline 10 mg tablet 10 mg PO DAILY 12/02/20 [History Last Taken Unknown] duloxetine 20 mg capsule,delayed release (Cymbalta) 20 mg PO DAILY 12/02/20 [History Last Taken Unknown] dupilumab 300 mg/2 mL subcutaneous pen injector (Dupixent) 300 mg subcut QWEEK 12/02/20 [History Last Taken Unknown] hydroxyzine HCl 25 mg tablet 25 mg PO DAILY 12/02/20 [History Last Taken Unknown] naproxen 500 mg tablet (Naprosyn) 500 mg PO BID #20 tabs 12/02/20 [Rx Last Taken Unknown] omeprazole magnesium 20 mg tablet,delayed release (Prilosec OTC) 20 mg PO DAILY 12/02/20 [History Last Taken Unknown] hydrocortisone 1 %-pramoxine 1 % rectal foam (Proctofoam HC) 1 applic MA BID PRN hemorrhoids #10 grams 01/09/22 [Rx Last Taken Unknown] lidocaine 4 % topical gel 1 applic topical TID PRN pain #30 grams 01/09/22 [Rx Last Taken Unknown] Allergy/AdvReac Type Severity Reaction Status Date / Time No Known Allergies Allergy Verified 01/09/22 07:30 Family History Father Thyroid disorder Surgical History H/O: History of cholecystectomy Social History Smoking Status: Never smoker alcohol intake: never substance use type: does not use ROS ROS ED Constitutional Constitutional ED: Denies chills or weight loss Eyes Eyes: Denies change in vision or diplopia ENT ENT ED: Denies ear pain, rhinorrhea or sore throat Cardiovascular Cardiovascular: Denies chest pain, orthopnea, palpitations or racing heartbeat Respiratory/Chest Respiratory/Chest: Denies cough, dyspnea or orthopnea Gastrointestinal Gastrointestinal: Reports other Details: Rectal pain ; Denies abdominal pain, diarrhea, nausea or vomiting Genitourinary Genitourinary ED: Denies dysuria, hematuria or urinary frequency Musculoskeletal Musculoskeletal: Denies arthralgias or myalgias Integumentary Denies abscess or rash Neurologic Neurologic: Denies headache(s) or weakness Psychiatric Psychiatric: Denies anxiety, depression, suicidal ideation or suicidal thoughts Endocrine Endocrinology: Denies polydipsia, polyphagia or polyuria Allergic/Immunologic Allergic/Immunologic ED: Denies mouth swelling, tongue swelling or urticaria EXAM Physical Exam Const Vital Signs: 01/09/22 07:30 Temperature 98.1 F Temperature Source Temporal Pulse Rate 69 Respiratory Rate 17 Blood Pressure 132/92 H Blood Pressure Mean 105 Pulse Ox 100 Oxygen Delivery Method Room Air Positive well nourished and well developed General Appearance ED: well developed HEENT Reports normocephalic, head/scalp atraumatic and moist mucous membranes Eyes PERRL and EOMs intact bilaterally Neck no lymphadenopathy, supple and no JVD Resp normal respiratory effort and clear to auscultation bilaterally Cardio regular rate, regular rhythm and no murmurs GI normal to inspection, nondistended, normoactive bowel sounds and non-tender Palpation: soft Narrative: Rectal examination reveals no thrombosed hemorrhoids. There is hemorrhoidal tissue. I do not appreciate anal fissure. I do not appreciate perirectal abscess or perineal abscess. No blood on glove. Back/Spine no CVA tenderness and normal ROM Extremity normal to inspection General Extremety ED: Negative for edema General Extremity: Negative for edema Neuro oriented x3 and CN's II-XII intact bilaterally Sensorium / Orientation: alert Motor Exam: strength 5/5 throughout Psych mental status grossly normal Mood & Affect: Negative for depressed or tearful Skin no rashes or lesions noted and no wounds MDM MDM MDM Narrative Medical decision making narrative: I will write for the patient to have Proctofoam HC as well as lidocaine. Follow-up with primary care or with surgery if she wishes to consult them Discharge Plan Triage Chief Complaint: Other, Pain/Inj ED Provider: Eyad De Guzman Dx/Rx/DC Orders Clinical Impression: Rectal pain, Hemorrhoids Instructions: Treating Hemorrhoids: Self-Care, Treating Hemorrhoids: Surgery Prescriptions: New Proctofoam HC 1-1 % foam 1 applic MA BID PRN (Reason: hemorrhoids) Qty: 10 0RF lidocaine 4 % gel 1 applic topical TID PRN (Reason: pain) Qty: 30 0RF No Action amitriptyline 10 mg Tablet 10 mg PO DAILY hydroxyzine HCl 25 mg tablet 25 mg PO DAILY omeprazole magnesium [Prilosec OTC] 20 mg tablet,delayed release (DR/EC) 20 mg PO DAILY Label Comments: TAKE 1 TABLET BY MOUTH ONCE DAILY duloxetine [Cymbalta] 20 mg Capsule,Delayed Release(Dr/Ec) 20 mg PO DAILY Dupixent Pen 300 mg/2 mL Pen Injector 300 mg SUBCUT QWEEK Rx Instructions: EVERY OTHER WEEK naproxen [Naprosyn] 500 mg tablet 500 mg PO BID Qty: 20 0RF Primary Care Provider: Richard Orozco Referrals: Logan Carroll MD [STAFF PHYSICIAN] - As Needed (FOR GENERAL SURGERY) Richard Orozco MD [Primary Care Provider] - As Needed Disposition Disposition: Home, Self Care
== END 2022-01-09 08:09 | disposition home or self-care (01) ==
LOC: ED 08:01
PROVIDERS: Emergency Provider Emergency Medicine; PCP Family Medicine; Visit Provider Emergency Medicine
DX: K64.9 Unspecified hemorrhoids (principal); K21.9 Gastro-esophageal reflux disease without esophagitis; M79.7 Fibromyalgia; F41.9 Anxiety disorder, unspecified; Z79.899 Other long term (current) drug therapy
CPT/HCPCS: 99282

== ENCOUNTER 2022-02-10 07:38 | Emergency (ER) | payer MEDICAID, SELFPAY ==
[2022-02-10 07:40] VITALS: BP 152/105; PULSE 94; RESP 17; TEMP 36.6; O2SAT 100; BMI 37.8
--- NOTE | 2022-02-10 07:54 | EDS_ITS ---
HPI History of Present Illness Chief Complaint: Other, Pain/Inj Informant: patient Onset/Context/Timing Onset: Yesterday Context: Gradual Onset Timing: Continuous Quality: Sharp Location: Rectal Worsened by: Bowel movement Relieved by: Lidocaine Narrative Narrative: Presents with rectal pain that has been getting worse since yesterday. Patient states that she knows she has a hemorrhoid and rectal fissures but her pain became worse. Patient is concerned that there is a thrombosed hemorrhoid or worsening of her rectal fissures. Patient noted blood with her bowel movement yesterday. Patient states her pain is sharp and localized to the rectal area. Patient states the lidocaine jelly does help with her pain. Patient states her pain is worse whenever she has a bowel movement. Patient admits to subjective fevers but did not take her temperature. [facility] Medical History 15 weeks gestation of Acid reflux Anxiety Constipation Dehydration Diarrhea Fibromyalgia Gastroenteritis Hemorrhoids Hypokalemia Nausea and vomiting Threatened in second trimester Home Medications amitriptyline 10 mg tablet 10 mg PO DAILY 12/02/20 [History Last Taken Unknown] duloxetine 20 mg capsule,delayed release (Cymbalta) 20 mg PO DAILY 12/02/20 [History Last Taken Unknown] dupilumab 300 mg/2 mL subcutaneous pen injector (Dupixent) 300 mg subcut QWEEK 12/02/20 [History Last Taken Unknown] hydroxyzine HCl 25 mg tablet 25 mg PO DAILY 12/02/20 [History Last Taken Unknown] naproxen 500 mg tablet (Naprosyn) 500 mg PO BID #20 tabs 12/02/20 [Rx Last Taken Unknown] omeprazole magnesium 20 mg tablet,delayed release (Prilosec OTC) 20 mg PO DAILY 12/02/20 [History Last Taken Unknown] hydrocortisone 1 %-pramoxine 1 % rectal foam (Proctofoam HC) 1 applic RI BID PRN hemorrhoids #10 grams 01/09/22 [Rx Last Taken Unknown] lidocaine 4 % topical gel 1 applic topical TID PRN pain #30 grams 01/09/22 [Rx Last Taken Unknown] hydrocortisone 2.5 % topical cream with perineal applicator (Anusol-HC) 1 applic RI DAILY PRN hemorrhoids #30 grams 02/10/22 [Rx Last Taken Unknown] Allergy/AdvReac Type Severity Reaction Status Date / Time No Known Allergies Allergy Verified 02/10/22 07:39 Family History Father Thyroid disorder Surgical History H/O: History of cholecystectomy Social History Smoking Status: Never smoker alcohol intake: never substance use type: does not use ROS ROS ED Constitutional Constitutional ED: Denies chills or fever(s) Eyes Eyes: Denies blurry vision or change in vision ENT ENT ED: Denies rhinorrhea or sore throat Cardiovascular Cardiovascular: Denies chest pain or palpitations Respiratory/Chest Respiratory/Chest: Denies cough or dyspnea Gastrointestinal Gastrointestinal: Denies abdominal pain, nausea or vomiting Genitourinary Genitourinary ED: Denies dysuria or hematuria Musculoskeletal Musculoskeletal: Denies back pain or neck pain Integumentary Denies abscess or rash Neurologic Neurologic: Denies headache(s) or weakness Allergic/Immunologic Allergic/Immunologic ED: Denies mouth swelling or urticaria EXAM Physical Exam Const Vital Signs: 02/10/22 07:40 02/10/22 07:47 Temperature 97.8 F Temperature Source Temporal Pulse Rate 94 Respiratory Rate 17 Respiratory Pattern Normal Blood Pressure 152/105 H Blood Pressure Mean 120 Pulse Ox 100 Oxygen Delivery Method Room Air Positive well nourished, well developed and obese General Appearance ED: well developed and NAD Nutritional Appearance: obese HEENT Reports moist mucous membranes Neck supple and no JVD Resp normal respiratory effort and clear to auscultation bilaterally Cardio regular rate and regular rhythm GI normal to inspection, nondistended, normoactive bowel sounds and non-tender Palpation: soft Narrative: Rectal exam shows hemorrhoid tissue but there are no thrombosed hemorrhoids. There is no bleeding noted. There is tenderness to palpation. There are no masses palpated. There is no evidence of any perirectal abscess. Neuro oriented x3, CN's II-XII intact bilaterally and no sensory deficits noted Sensorium / Orientation: alert Motor Exam: strength 5/5 throughout Psych mental status grossly normal MDM MDM MDM Narrative Medical decision making narrative: Patient was given a prescription for Anusol HC cream. Patient states she was given a prescription for lidocaine jelly yesterday. Patient states she has an appoint with the surgeon on March 06. Patient was instructed to follow-up with this. Patient was instructed to follow-up with her primary care physician in 5 to 7 days. Patient understood and was agreeable with the plan. All questions were answered. Discharge Plan Triage Chief Complaint: Other, Pain/Inj ED Provider: Geoffrey Pierce Dx/Rx/DC Orders Clinical Impression: Hemorrhoids, Anal or rectal pain Instructions: ED Hemorrhoids Prescriptions: New hydrocortisone [Anusol-HC] 2.5 % cream with perineal applicator 1 applic RI DAILY PRN (Reason: hemorrhoids) Qty: 30 0RF No Action amitriptyline 10 mg Tablet 10 mg PO DAILY hydroxyzine HCl 25 mg tablet 25 mg PO DAILY omeprazole magnesium [Prilosec OTC] 20 mg tablet,delayed release (DR/EC) 20 mg PO DAILY Label Comments: TAKE 1 TABLET BY MOUTH ONCE DAILY duloxetine [Cymbalta] 20 mg Capsule,Delayed Release(Dr/Ec) 20 mg PO DAILY Dupixent Pen 300 mg/2 mL Pen Injector 300 mg SUBCUT QWEEK Rx Instructions: EVERY OTHER WEEK naproxen [Naprosyn] 500 mg tablet 500 mg PO BID Qty: 20 0RF Proctofoam HC 1-1 % foam 1 applic RI BID PRN (Reason: hemorrhoids) Qty: 10 0RF lidocaine 4 % gel 1 applic topical TID PRN (Reason: pain) Qty: 30 0RF Primary Care Provider: Richard Orozco Referrals: Richard Orozco MD [Primary Care Provider] - 5-7 Days Disposition Disposition: Home, Self Care
== END 2022-02-10 08:37 | disposition home or self-care (01) ==
PROVIDERS: Emergency Provider Emergency Medicine; PCP Family Medicine; Visit Provider Emergency Medicine
DX: K64.9 Unspecified hemorrhoids (principal); K21.9 Gastro-esophageal reflux disease without esophagitis; F41.9 Anxiety disorder, unspecified; E66.9 Obesity, unspecified; Z79.899 Other long term (current) drug therapy
CPT/HCPCS: 99282

== ENCOUNTER 2023-02-24 21:49 | Emergency (ER) | payer MEDICAID, SELFPAY ==
[2023-02-24 21:49] VITALS: O2SAT 97
[2023-02-24 21:50] VITALS: BP 125/87; PULSE 90; RESP 18; TEMP 36.4; O2SAT 99; BMI 39.0
--- NOTE | 2023-02-24 22:13 | RAD_ITS ---
STUDY: X-RAY CHEST REASON FOR EXAM: Female, 37 years old. cough TECHNIQUE: PA and lateral views of the chest. COMPARISON: 12/02/2020 FINDINGS: The lungs are clear and expanded. There is no demonstrated pleural abnormality. Normal size heart. Normal mediastinum and cristiana. Normal visualized pulmonary arteries. Normal visualized aortic arch and descending thoracic aorta. Normal visualized thoracic spine. Normal visualized ribs, clavicles, and shoulders. There is no demonstrated abnormality of the visualized soft tissue structures of the upper abdomen. RAD/Chest PA and Lateral IMPRESSION: Normal x-ray examination of the chest. Electronically Signed: Chalino Shafer MD at 23:06 EDT ,
[2023-02-24 23:25] VITALS: PULSE 69; RESP 16; O2SAT 99
--- NOTE | 2023-02-24 23:26 | EX.ED.DYSGE1 ---
HPI History of Present Illness Chief Complaint: Cough Narrative Narrative: Patient is a 37-year-old female with past medical history of GERD as well as anxiety and fibromyalgia. She states that roughly 3 weeks ago she had sore throat and fatigue and tested negative for strep. She states she got better roughly 1 week later and was doing okay until the last week where she had increased congestion and cough. She states she is concerned she is developing pneumonia based on the persistent cough and therefore comes in for evaluation [facility] Medical History 15 weeks gestation of Acid reflux Anxiety Constipation Dehydration Diarrhea Fibromyalgia Gastroenteritis Hemorrhoids Hypokalemia Nausea and vomiting Threatened in second trimester Home Medications amitriptyline 10 mg tablet 10 mg PO DAILY 12/02/20 [History Last Taken Unknown] duloxetine 20 mg capsule,delayed release (Cymbalta) 20 mg PO DAILY 12/02/20 [History Last Taken Unknown] dupilumab 300 mg/2 mL subcutaneous pen injector (Dupixent) 300 mg subcut QWEEK 12/02/20 [History Last Taken Unknown] hydroxyzine HCl 25 mg tablet 25 mg PO DAILY 12/02/20 [History Last Taken Unknown] naproxen 500 mg tablet (Naprosyn) 500 mg PO BID #20 tabs 12/02/20 [Rx Last Taken Unknown] omeprazole magnesium 20 mg tablet,delayed release (Prilosec OTC) 20 mg PO DAILY 12/02/20 [History Last Taken Unknown] hydrocortisone 1 %-pramoxine 1 % rectal foam (Proctofoam HC) 1 applic HI BID PRN hemorrhoids #10 grams 01/09/22 [Rx Last Taken Unknown] lidocaine 4 % topical gel 1 applic topical TID PRN pain #30 grams 01/09/22 [Rx Last Taken Unknown] hydrocortisone 2.5 % topical cream with perineal applicator (Anusol-HC) 1 applic HI DAILY PRN hemorrhoids #30 grams 02/10/22 [Rx Last Taken Unknown] hydrocodone-homatropine 5 mg-1.5 mg/5 mL (5 mL) oral syrup (Hycodan) 5 ml PO 4X/DAY PRN PRN cough 7 days #140 mL 02/24/23 [Rx Last Taken Unknown] prednisone 20 mg tablet 40 mg (2 x 20 mg) PO DAILY 5 days #10 tabs 02/24/23 [Rx Last Taken Unknown] Allergy/AdvReac Type Severity Reaction Status Date / Time No Known Allergies Allergy Verified 02/24/23 21:49 Family History Father Thyroid disorder Surgical History H/O: History of cholecystectomy Social History Smoking Status: Never smoker alcohol intake: never substance use type: does not use ROS ROS ED Constitutional Constitutional ED: Denies chills or fever(s) ENT ENT ED: Reports rhinorrhea and sore throat Cardiovascular Cardiovascular: Denies chest pain Respiratory/Chest Respiratory/Chest: Reports cough; Denies dyspnea Gastrointestinal Gastrointestinal: Denies abdominal pain, diarrhea, nausea or vomiting Genitourinary Genitourinary ED: Denies dysuria Musculoskeletal Musculoskeletal: Denies myalgias Integumentary Denies rash Neurologic Neurologic: Denies headache(s) Hematologic/Lymphatic Hematologic/Lymphatic: Denies easy bleeding or easy bruising EXAM Physical Exam Const Vital Signs: 02/24/23 21:50 02/24/23 21:49 02/24/23 23:25 Temperature 97.5 F L Temperature Source Temporal Pulse Rate 90 69 Respiratory Rate 18 16 Respiratory Effort Non-Labored Respiratory Depth Normal Respiratory Pattern Normal Blood Pressure 125/87 H Blood Pressure Mean 99 Pulse Ox 99 99 Oxygen Delivery Method Room Air Room Air Positive well nourished, well developed and obese General Appearance ED: well developed Nutritional Appearance: obese HEENT HEENT Narrative: Nasal mucosa is hyperemic and boggy There is cobblestoning the posterior pharynx consistent with sinus drainage without airway edema or compromise Eyes PERRL and EOMs intact bilaterally Neck supple and no JVD Neck Narrative: No nuchal rigidity or meningeal signs present Resp normal respiratory effort Resp Narrative: Breath sounds are slight diminished throughout with diffuse rhonchi noted but no nasal flaring retractions tachypnea or accessory muscle use Cardio regular rate and regular rhythm Rate: other Other Details: Radial pulses are equal and symmetric Extremity normal to inspection Extremity Narrative: No asymmetric edema no pitting edema negative Homans' sign bilaterally Neuro oriented x3, CN's II-XII intact bilaterally and no sensory deficits noted Sensorium / Orientation: alert Motor Exam: strength 5/5 throughout Psych mental status grossly normal Skin no rashes or lesions noted MDM MDM MDM Narrative Medical decision making narrative: Patient presented to the ER in no acute respiratory distress with stable vitals. Her history and exam is most consistent with upper respiratory tract infection differential diagnosis also includes pneumonia versus pneumothorax versus pleural effusion. At this time based on her stable vitals and no signs of respiratory distress I felt no need for work-up other than chest x-ray to rule out underlying lung pathology. Chest x-ray revealed no acute finding. On reevaluation she is resting comfortably and remains in no acute distress. Therefore patient will be given symptomatic care and is otherwise safe for discharge Radiography Diagnostic Testing: Clinical Impression(s) from Imaging Studies Chest X-Ray 02/24/23 22:13 IMPRESSION: Normal x-ray examination of the chest. Electronically Signed: Chalino Shafer MD at 23:06 EDT Reading Location ID and State: [facility] / [place] Tel , Service support , 2 view chest x-ray as interpreted by the emergency medicine physician reveals no infiltrate pneumothorax or pleural effusion Discharge Plan Triage Chief Complaint: Cough ED Provider: Filipe Borja Dx/Rx/DC Orders Clinical Impression: Viral URI with cough, Anxiety, Fibromyalgia Instructions: ED URI, Viral, No Abx (Adult) Prescriptions: New prednisone 20 mg tablet 40 mg PO DAILY 5 Days Qty: 10 0RF hydrocodone-homatropine [Hycodan] 5-1.5 mg/5 mL (5 mL) syrup 5 ml PO 4X/DAY PRN PRN (Reason: cough) 7 Days Qty: 140 0RF No Action amitriptyline 10 mg Tablet 10 mg PO DAILY hydroxyzine HCl 25 mg tablet 25 mg PO DAILY omeprazole magnesium [Prilosec OTC] 20 mg tablet,delayed release (DR/EC) 20 mg PO DAILY Patient Comments: TAKE 1 TABLET BY MOUTH ONCE DAILY duloxetine [Cymbalta] 20 mg Capsule,Delayed Release(Dr/Ec) 20 mg PO DAILY Dupixent Pen 300 mg/2 mL Pen Injector 300 mg SUBCUT QWEEK Rx Instructions: EVERY OTHER WEEK naproxen [Naprosyn] 500 mg tablet 500 mg PO BID Qty: 20 0RF Proctofoam HC 1-1 % foam 1 applic HI BID PRN (Reason: hemorrhoids) Qty: 10 0RF lidocaine 4 % gel 1 applic topical TID PRN (Reason: pain) Qty: 30 0RF hydrocortisone [Anusol-HC] 2.5 % cream with perineal applicator 1 applic HI DAILY PRN (Reason: hemorrhoids) Qty: 30 0RF Primary Care Provider: Richard Orozco Referrals: Richard Orozco MD [Primary Care Provider] - Activity Restrictions/Additional Instructions: Your chest x-ray reveals no signs of pneumonia indicating you have a viral respiratory tract infection. This can last on average 2 to 3 weeks. Take the prescribed medication as directed to help control your symptoms and return to the ER should you have any further concerns Disposition Disposition: Home, Self Care Discharge Date/Time: 02/24/23 23:41
[2023-02-24] MEDS: guaiFENesin/Codeine 5 ML UDC 10 ML PO (23:39)
== END 2023-02-24 23:41 | disposition home or self-care (01) ==
PROVIDERS: Emergency Provider Emergency Medicine; PCP Family Medicine; Visit Provider Emergency Medicine
DX: J06.9 Acute upper respiratory infection, unspecified (principal); F41.9 Anxiety disorder, unspecified; M79.7 Fibromyalgia; E66.9 Obesity, unspecified
CPT/HCPCS: 71046; 99283

== ENCOUNTER 2023-12-26 11:09 | Emergency (ER) | payer MEDICAID, SELFPAY ==
[2023-12-26] VITALS (9 sets, daily range): BP systolic 101–153; BP diastolic 58–96; PULSE 61–89; RESP 14–21; TEMP 36.2–36.3; O2SAT 98–100; BMI 42.3
--- NOTE | 2023-12-26 11:22 | EKG12_ITS ---
Test Reason : Blood Pressure : / mmHG Vent. Rate : 085 BPM Atrial Rate : 085 BPM P-R Int : 168 ms QRS Dur : 090 ms QT Int : 374 ms P-R-T Axes : 041 -04 017 degrees QTc Int : 445 ms Normal sinus rhythm Normal ECG Confirmed by Yao Arroyo ([id number]), greeting card editor BLUE CANELA ([id number]) on 12/27/2023 9:44:02 AM Referred By: SAGAR Confirmed By:Yao Arroyo
--- NOTE | 2023-12-26 11:23 | EDS_ITS ---
HPI History of Present Illness Chief Complaint: Chest Pain Narrative Narrative: 38-year-old female who denies significant past medical history, presents with chest pain that she has had for the last 1 to 2 days. 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 She has had chest pain in the past which usually resolves after an hour. She states she has had relatively constant midsternal chest pain and pressure but also right-sided sharp and stabbing pain. She endorses nausea and vomiting, but no problems with bowel movements. No fevers or chills but she has felt flushed and hot and occasionally cold at times. She does endorse family history of early coronary artery disease but is unsure because she does not have a good relationship with her father who reportedly may have had a heart attack at an earlier age. She denies any exacerbating or alleviating factors. [facility] Medical History Fibromyalgia Hemorrhoids Acid reflux Constipation Diarrhea Nausea and vomiting Anxiety Hypokalemia Dehydration 15 weeks gestation of Threatened in second trimester Gastroenteritis Home Medications ?Medication ?Instructions ?Recorded ?Last Taken ?Type amitriptyline 10 mg tablet 10 mg PO DAILY 12/02/20 Unknown History duloxetine 20 mg capsule,delayed 20 mg PO DAILY 12/02/20 Unknown History release (Cymbalta) dupilumab 300 mg/2 mL subcutaneous 300 mg subcut QWEEK 12/02/20 Unknown History pen injector (Dupixent) hydroxyzine HCl 25 mg tablet 25 mg PO DAILY 12/02/20 Unknown History naproxen 500 mg tablet (Naprosyn) 500 mg PO BID #20 tabs 12/02/20 Unknown Rx omeprazole magnesium 20 mg 20 mg PO DAILY 12/02/20 Unknown History tablet,delayed release (Prilosec OTC) hydrocortisone 1 %-pramoxine 1 % 1 applic [place] BID PRN hemorrhoids 01/09/22 Unknown Rx rectal foam (Proctofoam HC) #10 grams lidocaine 4 % topical gel 1 applic topical TID PRN pain #30 01/09/22 Unknown Rx grams hydrocortisone 2.5 % topical cream 1 applic KS DAILY PRN hemorrhoids 02/10/22 Unknown Rx with perineal applicator #30 grams (Anusol-HC) hydrocodone-homatropine 5 mg-1.5 5 ml PO 4X/DAY PRN PRN cough 7 02/24/23 Unknown Rx mg/5 mL (5 mL) oral syrup (Hycodan) days #140 mL prednisone 20 mg tablet 40 mg (2 x 20 mg) PO DAILY 5 days 02/24/23 Unknown Rx #10 tabs ondansetron 4 mg disintegrating 4 mg PO Q8H PRN nausea and 12/26/23 Unknown Rx tablet vomiting #12 tabs Allergy/AdvReac Type Severity Reaction Status Date / Time No Known Allergies Allergy Verified 12/26/23 11:10 Family History Father Thyroid disorder Surgical History H/O: History of cholecystectomy Social History Smoking Status: Never smoker alcohol intake: never substance use type: does not use ROS ROS ED ROS Narrative Constitutional: No fever, no chills. HEENT: No sore throat. No neck pain. No loss of vision. No rhinorrhea. Cardiovascular: Positive midsternal to right-sided chest pain described as pr essure but also still up and stabbing. No palpitations. No pedal edema. Respiratory: No cough, no shortness of breath. Abdominal: No abdominal pain. Positive nausea and vomiting Genitourinary: No dysuria. No hematuria. Musculoskeletal: No myalgias. No arthralgias. Neurologic: No headaches. No dizziness. No lightheadedness. Skin: No rash. No change in color. Psychiatric: No depression. No anxiety. EXAM Physical Exam Narrative Exam Narrative: Afebrile. Vital signs noted. HEENT: Normocephalic. Atraumatic. PERRL, EOMI. Neck soft and supple. No point tenderness or step off. Cardiovascular: Regular rate and rhythm. No murmurs, rubs, or gallops appreciated. Respiratory: No tachypnea. Lungs clear to auscultation bilaterally. Gastrointestinal: Abdomen soft, nontender, with normoactive bowel sounds. No rebound or guarding. Neurological: Awake. Alert. Nonfocal, nonlateralizing. Skin: No rash. Normal color. No pallor. Musculoskeletal: No pedal edema. Full range of motion extremities. Const Vital Signs: 12/26/23 11:10 12/26/23 11:19 12/26/23 11:30 Temperature 97.1 F L Temperature Source Temporal Pulse Rate 89 84 Respiratory Rate 18 20 H Respiratory Effort Normal Non-Labored Blood Pressure 153/96 H 125/73 H Blood Pressure Mean 115 89 Pulse Ox 100 100 Oxygen Delivery Method Room Air 12/26/23 11:39 12/26/23 11:45 12/26/23 12:00 Temperature Temperature Source Pulse Rate 81 77 Respiratory Rate 14 21 H Respiratory Effort Blood Pressure 117/58 L Blood Pressure Mean 76 Pulse Ox 100 100 Oxygen Delivery Method Room Air 12/26/23 12:45 12/26/23 13:00 12/26/23 13:56 Temperature Temperature Source Pulse Rate 61 69 62 Respiratory Rate 16 17 16 Respiratory Effort Blood Pressure 125/84 H 123/64 H 102/74 Blood Pressure Mean 97 84 83 Pulse Ox 100 98 100 Oxygen Delivery Method Room Air 12/26/23 14:00 12/26/23 14:30 Temperature 97.4 F L Temperature Source Pulse Rate 62 65 Respiratory Rate 17 14 Respiratory Effort Blood Pressure 101/67 111/79 Blood Pressure Mean 78 89 Pulse Ox 100 100 Oxygen Delivery Method MDM MDM MDM Narrative Medical decision making narrative: In the differential diagnosis is ACS versus pulmonary embolism versus pneumonia versus pneumothorax versus pancreatitis versus cholecystitis. I doubt pancreatitis or cholecystitis based on her examination. She is having more chest pain. She is not tachycardic or hypoxic so this does not favor pneumothorax or PE. I will obtain a D-dimer and a chest x-ray. Chest pain workup was pursued and EKG was obtained and interpreted by myself independently as normal sinus rhythm at 85 bpm without ectopy or acute ST changes. No STEMI. I reviewed her laboratory work and WBC count normal at 6.2, hemoglobin stable at 9.6, platelet count normal at 274. Her D-dimer is slightly elevated at 0.89. CTA was ordered to rule out dissection or pulmonary embolism. I reviewed her electrolyte panel and she has slightly elevated chloride of 109 which I think is nonspecific, BUN normal at 14 with creatinine 0.71, glucose appropriately elevated at 98. AST is low at 9 with a normal ALT of 20. Initial high- sensitivity troponin is less than 3 with a repeat at 2 hours also less than 3. I feel that she has ruled out for acute coronary syndrome with biomarkers. Chest x-ray and 1 view interpreted by myself independently shows no evidence of pneumothorax or pneumonia. I reviewed the radiology report which confirms my independent interpretation. As she had an elevated D-dimer, I reviewed the radiology report of the CTA of the chest which shows no evidence of aortic dissection or pulmonary embolism. Serum test is negative. Additionally lipase is normal so I doubt pancreatitis. At this point in time, I feel she be discharged with follow-up to her primary care provider regarding her atypical chest pain. Return instructions to the emergency department were reviewed. Disposition is discharged home in stable condition. History & Record Review Discussion w/independent historian: Patient Additional record(s) reviewed:: Prior labs Lab Data Attestation: I reviewed the patient's lab results. Labs: Laboratory Results - last 24 hr 12/26/23 12/26/23 11:30 13:32 WBC 6.2 RBC 4.24 Hgb 9.6 L Hct 31.6 L MCV 74.5 L MCH 22.6 L MCHC 30.4 L RDW Std Deviation 45.7 H RDW Coeff of Onel 17.2 H Plt Count 274 MPV 10.2 Immature Gran % (Auto) 0.300 Neut % (Auto) 64.0 Lymph % (Auto) 28.6 [place] % (Auto) 5.8 Eos % (Auto) 0.8 Baso % (Auto) 0.5 Absolute Neuts (auto) 4.0 Absolute Lymphs (auto) 1.77 Nucleated RBC % 0 D-Dimer Quant (PE/DVT) 0.89 H* Sodium 136 Potassium 3.7 Chloride 109 H Carbon Dioxide 23.0 Anion Gap 4 L BUN 14 Creatinine 0.71 Estim Creat Clear Calc 138.87 Est GFR (MDRD) Af Amer 120 Est GFR (MDRD) Non-Af 99 BUN/Creatinine Ratio 19.7 Glucose 98 Calcium 8.7 Total Bilirubin 0.40 AST 9 L ALT 20 Alkaline Phosphatase 78 Troponin I High Sens < 3 L < 3 L Total Protein 7.3 Albumin 3.8 Globulin 3.5 Albumin/Globulin Ratio 1.1 Lipase 31 Serum , Qual NEGATIVE Radiography Diagnostic Testing: Clinical Impression(s) from Imaging Studies Chest X-Ray 12/26/23 11:40 IMPRESSION: Normal x-ray examination of the chest. Electronically Signed: Rodrigo Lieberman MD at 12:07 EDT , Chest CTA 12/26/23 12:11 IMPRESSION: Normal CTA chest examination, without a demonstrated pulmonary embolism or arterial dissection. Electronically Signed: Rodrigo Lieberman MD at 12:56 EDT , Discharge Plan Triage Chief Complaint: Chest Pain ED Provider: Jesus Meza Dx/Rx/DC Orders Clinical Impression: Chest pain, Elevated d-dimer, Nausea and vomiting Instructions: ED Chest Pain, Uncertain Cause, ED Vomiting (Adult) Prescriptions: New ondansetron 4 mg tablet,disintegrating 4 mg PO Q8H PRN (Reason: nausea and vomiting) Qty: 12 0RF No Action amitriptyline 10 mg Tablet 10 mg PO DAILY hydroxyzine HCl 25 mg tablet 25 mg PO DAILY omeprazole magnesium [Prilosec OTC] 20 mg tablet,delayed release (DR/EC) 20 mg PO DAILY Patient Comments: TAKE 1 TABLET BY MOUTH ONCE DAILY duloxetine [Cymbalta] 20 mg Capsule,Delayed Release(Dr/Ec) 20 mg PO DAILY Dupixent Pen 300 mg/2 mL Pen Injector 300 mg SUBCUT QWEEK Rx Instructions: EVERY OTHER WEEK naproxen [Naprosyn] 500 mg tablet 500 mg PO BID Qty: 20 0RF Proctofoam HC 1-1 % foam 1 applic KS BID PRN (Reason: hemorrhoids) Qty: 10 0RF lidocaine 4 % gel 1 applic topical TID PRN (Reason: pain) Qty: 30 0RF hydrocortisone [Anusol-HC] 2.5 % cream with perineal applicator 1 applic KS DAILY PRN (Reason: hemorrhoids) Qty: 30 0RF prednisone 20 mg tablet 40 mg PO DAILY 5 Days Qty: 10 0RF hydrocodone-homatropine [Hycodan] 5-1.5 mg/5 mL (5 mL) syrup 5 ml PO 4X/DAY PRN PRN (Reason: cough) 7 Days Qty: 140 0RF Stand Alone Forms: Work / School Excuse Primary Care Provider: Richard Orozco Referrals: Richard Orozco MD [Primary Care Provider] - 3-5 Days Print Language: Com[place]an Disposition Disposition: Home, Self Care Discharge Date/Time: 12/26/23 14:35
[2023-12-26] MEDS: Aspirin 81 MG TAB.CHEW 324 MG PO (11:36)
[2023-12-26] MEDS: Ondansetron 4 MG/2 ML Vial IV (11:36)
[2023-12-26] MEDS: 0.9% Normal Saline (1000mL) 1,000 ML 999 ML IV (11:36)
[2023-12-26 11:39] LABS: Absolute Lymphocyte Count 1.77 X10^3/uL (0.83-4.51); Basophil# 0.03 X10^3/uL; Basophil% 0.5 % (0-1); Eosinophil# 0.05 X10^3/uL; Eosinophils% 0.8 % (0-5); Hematocrit 31.6 % (37-47); Hemoglobin 9.6 g/dL (12.0-15.0); Lymphocyte # 1.77 X10^3/ul (0.83-4.51); Lymphocyte % 28.6 % (19-41); Mean Corp Hgb Conc 30.4 g/dL (32-36); Mean Corpuscular Hgb 22.6 pg (27.0-32.0); Mean Corpuscular Volume 74.5 fL (81-99); Mean Platelet Vol. 10.2 fl (6.2-12.0); Monocyte# 0.36 X10^3/uL; Monocyte% 5.8 % (0-10); NRBC Flagged by Analyzer 0 % (0-5); Neutrophil # 3.95 X10^3/uL (2.7-7.7); Platelet Count 274 K/mm3 (150-450); RBC Distribution Width CV 17.2 % (11.6-14.6); RBC Distribution Width SD 45.7 fl (35.1-43.9); Red Blood Count 4.24 M/mm3 (4.2-5.4); White Blood Count 6.2 K/mm3 (4.4-11.0)
--- NOTE | 2023-12-26 11:40 | RAD_ITS ---
STUDY: X-RAY CHEST REASON FOR EXAM: Female, 38 years old. Chest pain TECHNIQUE: Single AP portable view of the chest. COMPARISON: Comparison is made with prior study February 24, 2023. FINDINGS: EKG electrodes are seen. The lungs are clear and expanded. There is no demonstrated pleural abnormality. Normal size heart. Normal mediastinum and cristiana. Normal visualized pulmonary arteries. Normal visualized aortic arch and descending thoracic aorta. Normal visualized thoracic spine. Normal visualized ribs, clavicles, and shoulders. There is no demonstrated abnormality of the visualized soft tissue structures of the upper abdomen. RAD/Chest 1 View (Portable) IMPRESSION: Normal x-ray examination of the chest. Electronically Signed: Rodrigo Lieberman MD at 12:07 EDT ,
[2023-12-26 12:03] LABS: D-Dimer Quantitative (DVT/PE) 0.89 FEU/ug/m (0.27-0.49)
--- NOTE | 2023-12-26 12:11 | CT_ITS ---
STUDY: CTA CHEST REASON FOR EXAM: Female, 38 years old. Elevated D dimer RADIATION DOSAGE (If Supplied By Facility): CTDIvol = ( 11.47 ) mGy, DLP = ( 490.28 ) mGycm TECHNIQUE: The examination was performed with the intravenous administration of IV 100mL Isovue-300. Post-processing of the angiographic images was performed, with multiplanar reformation and 3D reconstruction. Individualized dose optimization techniques were used for this CT. COMPARISON: Comparison is made with prior chest radiograph done earlier in the day. FINDINGS: Normal enhancement of the main pulmonary artery and right and left pulmonary arteries. Normal enhancement of the bilateral peripheral pulmonary arteries. There is no demonstrated pulmonary embolism. Normal thoracic aorta and visualized great vessels. There is no demonstrated aortic dissection. Normal heart and pericardium. Normal mediastinum. Normal hilar regions. Normal visualized trachea and bronchi. The lungs are well expanded. Normal pulmonary parenchyma. Normal pleura. Normal chest wall structures. Normal osseous structures. Small hiatal hernia. CT/CTA Chest W/WO Contrast IMPRESSION: Normal CTA chest examination, without a demonstrated pulmonary embolism or arterial dissection. Electronically Signed: Rodrigo Lieberman MD at 12:56 EDT ,
[2023-12-26 12:12] LABS: ALB/GLOB Ratio 1.1 RATIO (0.9-2.4); AST(SGOT) 9 U/L (15-37); Alanine Aminotransfer ALT/SGPT 20 U/L (13-56); Albumin, Serum 3.8 g/dL (3.2-5.0); Alkaline Phosphatase 78 U/L (45-117); Anion Gap 4 (5-15); BUN 14 mg/dL (7-18); BUN/Creat Ratio 19.7 RATIO (10-20); Calcium,Total 8.7 mg/dL (8.5-10.1); Chloride 109 mmol/L (98-107); Creatinine, Serum 0.71 mg/dL (0.55-1.02); EST Glomerular Filtration Rate 99 mL/min (>60); Est Glom Filt Rate - Afr Amer 120 mL/min (>60); Estimated Creatinine Clearance 138.87 ml/min; Globulin 3.5 g/dL (2.2-4.2); Glucose 98 mg/dL (74-106); Lipase 31 U/L (13-75); Potassium 3.7 mmol/L (3.5-5.1); Protein, Total 7.3 g/dL (6.4-8.2); Sodium Level 136 mmol/L (136-145); Troponin-I HS (w/2H Reflex) < 3 pg/mL (3.0-54.0)
[2023-12-26 12:22] LABS: Internal QC Validated? YES +Cl - CLEAR BKGD; Pregnancy, Serum, hCG Quali. NEGATIVE Negative; Record Kit Lot#, Serum Preg. 735774
[2023-12-26 13:36] LABS: Reflex Troponin-HS? (from REC) Y
[2023-12-26 14:03] LABS: Troponin-I HS < 3 pg/mL (3.0-54.0)
== END 2023-12-26 14:35 | disposition home or self-care (01) ==
PROVIDERS: Emergency Provider Emergency Medicine; PCP Family Medicine; Visit Provider Emergency Medicine
DX: R07.9 Chest pain, unspecified (principal); R79.89 Other specified abnormal findings of blood chemistry; R11.2 Nausea with vomiting, unspecified
CPT/HCPCS: 71045; 71275; 80053; 83690; 84484; 84703; 85025; 85379; 93005; 96361; 96374; 96376; 99284; J7030; Q9967; A4216; J2405

== ENCOUNTER 2024-07-05 19:33 | Emergency (ER) | payer MEDICAID, SELFPAY ==
[2024-07-05 19:34] VITALS: BP 152/88; PULSE 64; RESP 16; TEMP 36.6; O2SAT 100
--- NOTE | 2024-07-05 19:55 | ED.VIS.DENTA ---
HPI <JESSICA Horton - Last Filed: 07/05/24 20:02> History of Present Illness Chief Complaint: Dental Narrative Narrative: Patient is a 38-year-old female with no significant ankle history presents to the emergency department with complaints of tooth pain to the right lower jaw. Patient states on Sunday this last week, she had a cleaning with her dentist. The next day, she had pain to the right premolar on her right lower jaw. Patient complains of nausea, fevers at home. [facility] <JESSICA Horton - Last Filed: 07/05/24 20:02> [facility] Medical History Fibromyalgia Hemorrhoids Acid reflux Constipation Diarrhea Nausea and vomiting Anxiety Hypokalemia Dehydration 15 weeks gestation of Threatened in second trimester Gastroenteritis Home Medications ?Medication ?Instructions ?Recorded ?Last Taken ?Type amitriptyline 10 mg tablet 10 mg PO DAILY 12/02/20 Unknown History duloxetine 20 mg capsule,delayed 20 mg PO DAILY 12/02/20 Unknown History release (Cymbalta) dupilumab 300 mg/2 mL subcutaneous 300 mg subcut QWEEK 12/02/20 Unknown History pen injector (Dupixent) hydroxyzine HCl 25 mg tablet 25 mg PO DAILY 12/02/20 Unknown History naproxen 500 mg tablet (Naprosyn) 500 mg PO BID #20 tabs 12/02/20 Unknown Rx omeprazole magnesium 20 mg 20 mg PO DAILY 12/02/20 Unknown History tablet,delayed release (Prilosec OTC) hydrocortisone 1 %-pramoxine 1 % 1 applic OK BID PRN hemorrhoids 01/09/22 Unknown Rx rectal foam (Proctofoam HC) #10 grams lidocaine 4 % topical gel 1 applic topical TID PRN pain #30 01/09/22 Unknown Rx grams hydrocortisone 2.5 % topical cream 1 applic OK DAILY PRN hemorrhoids 02/10/22 Unknown Rx with perineal applicator #30 grams (Anusol-HC) hydrocodone-homatropine 5 mg-1.5 5 ml PO 4X/DAY PRN PRN cough 7 02/24/23 Unknown Rx mg/5 mL (5 mL) oral syrup (Hycodan) days #140 mL prednisone 20 mg tablet 40 mg (2 x 20 mg) PO DAILY 5 days 02/24/23 Unknown Rx #10 tabs ondansetron 4 mg disintegrating 4 mg PO Q8H PRN nausea and 12/26/23 Unknown Rx tablet vomiting #12 tabs naproxen 500 mg tablet (Naprosyn) 500 mg PO BID PRN pain #20 tabs 07/05/24 Unknown Rx penicillin V potassium 500 mg 500 mg PO 4X/DAY #40 tabs 07/05/24 Unknown Rx tablet Allergy/AdvReac Type Severity Reaction Status Date / Time No Known Allergies Allergy Verified 07/05/24 19:37 Family History Father Thyroid disorder Surgical History H/O: History of cholecystectomy Social History Smoking Status: Never smoker alcohol intake: never substance use type: does not use ROS <JESSICA Horton - Last Filed: 07/05/24 20:02> ROS ED ROS Narrative Constitutional: Negative for fever, chills, weight loss, weakness Eyes: Negative for vision loss, vision change, double vision ENT: Negative for any sore throat, ear pain, congestion. Pain to the right lower jaw Cardiovascular: Negative for any chest pain, tightness, palpitations Respiratory: Negative for any cough, sputum production, hemoptysis, dyspnea, dyspnea on exertion, orthopnea Gastrointestinal: Negative for any abdominal pain, nausea, vomiting, diarrhea, constipation, blood in stool, blood in vomit : Negative for any urinary frequency, dysuria, retention, blood in urine Muscle skeletal: Negative for any neck pain, back pain Neurological: Negative for any headache, syncope, dizziness Skin: Negative for any rashes, itching, abrasions, lacerations Psychiatric: Negative for any depression, anxiety, stress, suicidal ideation, homicidal ideation Hematologic: Negative for any excessive bruising, easy bleeding EXAM <JESSICA Horton - Last Filed: 07/05/24 20:02> Physical Exam Narrative Exam Narrative: Vital signs reviewed. HEET: Head normocephalic atraumatic, TMs clear bilaterally. Posterior pharynx is clear, moist mucous membranes. Nares clear bilaterally. No trismus. Patient does have discolored tooth to the right lower premolar, she states this is new. There is no drainable abscess. There is no evidence of any deep tissue infection. Neck: Supple with no lymphadenopathy or tenderness. No signs of meningismus. Cardiac: Regular rate and rhythm no murmurs gallops or rubs, equal peripheral pulses bilaterally. Respiratory: Lungs clear to auscultation bilaterally. No chest tenderness. Abdomen: Soft, nontender, nondistended. No abdominal bruit or pulsatile masses. No hepatosplenomegaly Extremities: No peripheral edema, no signs of gross trauma or deformity. Active full range of motion of all extremities. Neuro: Cranial nerves II through XII intact, no focal neurological deficits. Skin: Clean dry and intact with no rash, purpura, petechiae, vesicles or pustules. Backs/flank: No CVA tenderness, no midline spinal tenderness, no deformity. Psych: Normal mood and affect. No SI, HI or acute psychosis. Const Vital Signs: 07/05/24 19:34 07/05/24 20:12 Temperature 98 F 98 F Temperature Source Oral Pulse Rate 64 64 Respiratory Rate 16 16 Blood Pressure 152/88 H 152/88 H Blood Pressure Mean 109 109 Pulse Ox 100 100 Oxygen Delivery Method Room Air <Dr. Jayant Astudillo MD - Last Filed: 07/05/24 20:21> Physical Exam Const Vital Signs: 07/05/24 19:34 07/05/24 20:12 Temperature 98 F 98 F Temperature Source Oral Pulse Rate 64 64 Respiratory Rate 16 16 Blood Pressure 152/88 H 152/88 H Blood Pressure Mean 109 109 Pulse Ox 100 100 Oxygen Delivery Method Room Air [facility] <JESSICA Horton - Last Filed: 07/05/24 20:02> [facility] Treatment and Re-Evaluation Narrative: Differential diagnosis includes however is not limited to: Dental caries, irreversible pulpitis, dental fracture Patient appears generally well, vital signs are stable, patient is nontoxic-appearing. Presenting to the emerged department for complaints of pain to the right lower jaw. Patient is have a discolored right lower premolar. Patient does have a dentist appointment in 2 days. Patient at this time we given 1 [place]as here, she will get a prescription for naproxen as well as Pen-Vee K. She will follow-up closely. She instructed return for any worsening symptoms. All questions answered, stable for discharge. <Dr. Jayant Astudillo MD - Last Filed: 07/05/24 20:21> MDM MDM Narrative Medical decision making narrative: I have personally performed a face to face assessment of the patient and have reviewed the NATACHA Note. I performed a substantive portion of the visit including all aspects of the following. My bailey findings include: History is 38-year-old female with right lower dental pain started on . Denies any trauma. No swelling. Recently saw her dentist for dental cleaning. Exam is [well-appearing 38-year-old female. Vital signs stable afebrile. H EENT exam her right premolar is discolored and tender to palpation. There is no obvious cavity. There is no fracture. There is no gingivitis. There is no dental abscess. There is no Jordin's angina. She is able to open and close her mouth without any difficulty. There is no facial swelling. There is no trouble breathing or swallowing. Neck nontender no lymphadenopathy. Lungs clear to auscultation. Heart regular rhythm no murmur. Abdomen soft. Otherwise exam unremarked.] Medical Decision Making [discharged to home treated with anti-inflammatories and Pen-Vee K. Given 1 dose of pain medication here.] Other additions or changes: [None] History & Record Review Discussion w/independent historian: Patient Discharge Plan Triage Chief Complaint: Dental ED Midlevel Provider: Enrrique Burdick ED Provider: Jayant Astudillo Dx/Rx/DC Orders Clinical Impression: Dental caries Instructions: ED Dental Cavity Prescriptions: New naproxen [Naprosyn] 500 mg tablet 500 mg PO BID PRN (Reason: pain) Qty: 20 0RF penicillin V potassium 500 mg tablet 500 mg PO 4X/DAY Qty: 40 0RF No Action amitriptyline 10 mg Tablet 10 mg PO DAILY hydroxyzine HCl 25 mg tablet 25 mg PO DAILY omeprazole magnesium [Prilosec OTC] 20 mg tablet,delayed release (DR/EC) 20 mg PO DAILY Patient Comments: TAKE 1 TABLET BY MOUTH ONCE DAILY duloxetine [Cymbalta] 20 mg Capsule,Delayed Release(Dr/Ec) 20 mg PO DAILY Dupixent Pen 300 mg/2 mL Pen Injector 300 mg SUBCUT QWEEK Rx Instructions: EVERY OTHER WEEK naproxen [Naprosyn] 500 mg tablet 500 mg PO BID Qty: 20 0RF Proctofoam HC 1-1 % foam 1 applic OK BID PRN (Reason: hemorrhoids) Qty: 10 0RF lidocaine 4 % gel 1 applic topical TID PRN (Reason: pain) Qty: 30 0RF hydrocortisone [Anusol-HC] 2.5 % cream with perineal applicator 1 applic OK DAILY PRN (Reason: hemorrhoids) Qty: 30 0RF prednisone 20 mg tablet 40 mg PO DAILY 5 Days Qty: 10 0RF hydrocodone-homatropine [Hycodan] 5-1.5 mg/5 mL (5 mL) syrup 5 ml PO 4X/DAY PRN PRN (Reason: cough) 7 Days Qty: 140 0RF ondansetron 4 mg tablet,disintegrating 4 mg PO Q8H PRN (Reason: nausea and vomiting) Qty: 12 0RF Primary Care Provider: Richard Orozco Referrals: Richard Orozco MD [Primary Care Provider] - Activity Restrictions/Additional Instructions: Please follow-up outpatient. Follow-up with your dentist on Sunday Print Language: Macedonian Disposition Disposition: Home, Self Care
[2024-07-05] MEDS: HYDROcodone Bitartrate/Apap 5/325 Tablet PO (19:58)
[2024-07-05] MEDS: Penicillin Vk 250 MG Tablet 500 MG PO (19:58)
[2024-07-05 20:12] VITALS: BP 152/88; PULSE 64; RESP 16; TEMP 36.6; O2SAT 100
== END 2024-07-05 20:45 | disposition home or self-care (01) ==
PROVIDERS: Emergency Provider Emergency Medicine; PCP Family Medicine; Visit Provider Emergency Medicine
DX: K02.9 Dental caries, unspecified (principal)
CPT/HCPCS: 99283

== ENCOUNTER 2025-03-12 08:34 | Observation (INO) | payer MEDICAID, SELFPAY ==
[2025-03-12] VITALS (20 sets, daily range): BP systolic 98–152; BP diastolic 62–96; PULSE 57–99; RESP 14–18; TEMP 36.1–37.2; O2SAT 96–100; BMI 39.0; BMI 37.3
--- NOTE | 2025-03-12 09:01 | EDS_ITS ---
HPI HPI - GI History of Present Illness Chief Complaint: Abd Pain Narrative Narrative: Patient is a 39-year-old female presenting to the emergency department for periumbilical and right lower quadrant pain that started a few weeks ago. Reports that over the past 2 days the pain has been worse. She states it initially started with pain around her periumbilical region but is now located mainly in the right lower quadrant. She endorses urinary frequency, no dysuria or hematuria. Reports her last menstrual cycle was last week but was tester wafer substrate than usual. Endorses a low-grade fever of 100.5 at home this morning. She took Tylenol prior to arrival. She denies sore throat, cough, chest pain or shortness of breath. Endorses nausea with no vomiting. Denies any vaginal discharge, abnormal bleeding, vaginal/pelvic pain. Denies concern for STDs. Past abdominal surgical history of 3 sections and cholecystectomy. [facility] Medical History Fibromyalgia Hemorrhoids Acid reflux Constipation Diarrhea Nausea and vomiting Anxiety Hypokalemia Dehydration 15 weeks gestation of Threatened in second trimester Gastroenteritis Home Medications ?Medication ?Instructions ?Recorded ?Last Taken ?Type amitriptyline 10 mg tablet 10 mg PO DAILY 12/02/20 Unk nown History duloxetine 20 mg capsule,delayed 20 mg PO DAILY Unknown History release (Cymbalta) dupilumab 300 mg/2 mL subcutaneous 300 mg subcut QWEEK 12/02/20 Unknown History pen injector (Dupixent) hydroxyzine HCl 25 mg tablet 25 mg PO DAILY 12/02/20 U nknown History naproxen 500 mg tablet (Naprosyn) 500 mg PO BID #20 ta bs 12/02/20 Unknown Rx omeprazole magnesium 20 mg 20 mg PO DAILY 12/02/20 Unk nown History tablet,delayed release (Prilosec OTC) hydrocortisone 1 %-pramoxine 1 % 1 applic AR BID PRN h emorrhoids 01/09/22 Unknown Rx rectal foam (Proctofoam HC) #10 grams lidocaine 4 % topical gel 1 applic topical TID PRN nadeen n #30 01/09/22 Unknown Rx grams hydrocortisone 2.5 % topical cream 1 applic AR DAILY P RN hemorrhoids 02/10/22 Unknown Rx with perineal applicator #30 grams (Anusol-HC) hydrocodone-homatropine 5 mg-1.5 5 ml PO 4X/DAY PRN AR N cough 7 02/24/23 Unknown Rx mg/5 mL (5 mL) oral solution days #140 mL (Hycodan) prednisone 20 mg tablet 40 mg (2 x 20 mg) PO DAILY 5 days 02/24/23 Unknown Rx #10 tabs ondansetron 4 mg disintegrating 4 mg PO Q8H PRN nausea and 12/26/23 Unknown Rx tablet vomiting #12 tabs naproxen 500 mg tablet (Naprosyn) 500 mg PO BID PRN pa in #20 tabs 07/05/24 Unknown Rx penicillin V potassium 500 mg 500 mg PO 4X/DAY #40 tab s 07/05/24 Unknown Rx tablet Allergy/AdvReac Type Severity Reaction Status Date / Time No Known Allergies Allergy Verified 03/12/25 08:35 Family History Father Thyroid disorder Surgical History H/O: History of cholecystectomy Social History Smoking Status: Never smoker alcohol intake: never substance use type: does not use ROS ROS ED ROS Narrative See HPI EXAM Physical Exam Narrative Exam Narrative: Vital signs: Reviewed General: Alert and oriented. No acute distress HEENT: Head is normocephalic and atraumatic, sinuses nontender, pupils equal round and reactive. Nares are patent. Oropharynx and throat exams normal. Neck: Supple without lymphadenopathy nontender Cardiovascular: Regular rate and rhythm, no murmurs. No rubs or gallops. Normal S1 and S2 Respiratory: Clear to auscultation bilaterally. No wheezes, rales, rhonchi Abdominal: Soft and tenderness to palpation in the periumbilical and right lower quadrant. Normal bowel sounds. No guarding or rebound. No CVA tenderness to palpation. Extremities: No tenderness. No bruising. Normal range of motion. Normal sensation. Skin: No rash or redness. Neurological: Cranial nerves II through XII are grossly intact. Normal strength and sensation. Normal cerebellar function The rest of the physical exam is unremarkable Const Vital Signs: 03/12/25 08:34 03/12/25 10:51 Temperature 97.9 F Temperature Source Temporal Pulse Rate 88 57 L Respiratory Rate 14 16 Blood Pressure 152/90 H 110/68 Blood Pressure Mean 110 82 Pulse Ox 98 100 Oxygen Delivery Method Room Air Room Air MDM MDM MDM Narrative Medical decision making narrative: Patient is a 39-year-old female presenting to the emergency department for abdom inal pain and nausea. Patient was seen and examined. Vitals are stable. Patient resting bed comfortably in no acute distress. Differential includes but is not limited to: Appendicitis, gastroenteritis, UTI, colitis Patient offered analgesia, declines at this time. She was given Zofran. Labs and CT imaging ordered. CBC with no leukocytosis and a normal hemoglobin. CMP without significant abnormalities. Urinalysis with no evidence of infection. Urine negative. CT shows an enlarged appendix at 1.1 cm with no evidence of inflammation or rupture. There is a 3.5 cm cyst or follicle on the right ovary as well. Patient reevaluated. Updated on the findings. Patient is endorsing increased pain and nausea. Morphine and zofran given. Spoke to general surgeon, Dr. Justin, who evaluated the patient in the ED. Will admit for appendectomy likely later today given the CT findings and her symptoms. History & Record Review Discussion w/independent historian: Patient Lab Data Attestation: I reviewed the patient's lab results. Labs: Laboratory Results - last 24 hr 03/12/25 03/12/25 08:39 09:20 WBC 7.1 RBC 4.69 Hgb 14.7 Hct 41.5 MCV 88.5 MCH 31.3 MCHC 35.4 RDW Std Deviation 41.1 RDW Coeff of Onel 12.8 Plt Count 196 MPV 10.5 Immature Gran % (Auto) 0.300 Neut % (Auto) 67.5 Lymph % (Auto) 24.8 Roberts % (Auto) 5.3 Eos % (Auto) 1.7 Baso % (Auto) 0.4 Absolute Neuts (auto) 4.8 Absolute Lymphs (auto) 1.76 Nucleated RBC % 0 Sodium 138 Potassium 3.8 Chloride 108 Carbon Dioxide 19.6 L Anion Gap 10 BUN 9 Creatinine 0.71 Estim Creat Clear Calc 131.53 Est GFR (MDRD) Non-Af 113 BUN/Creatinine Ratio 12.4 Glucose 83 Calcium 9.0 Total Bilirubin 0.48 AST 15 ALT 9 Alkaline Phosphatase 77 Total Protein 7.1 Albumin 4.4 Globulin 2.7 Albumin/Globulin Ratio 1.6 Lipase 40 Urine Color Yellow Urine Clarity Sl. Cloudy Urine pH 6.0 Ur Specific [place] 1.025 Urine Protein 30 H Urine Glucose (UA) Normal Urine Ketones 5 H Urine Occult Blood 10 H Urine Nitrite Negative Urine Bilirubin Negative Urine Urobilinogen 1 H Ur Leukocyte Esterase Negative Urine RBC 0 SEEN Urine WBC 0 SEEN Ur Squamous Epith Cells 0-5 SEEN Urine Bacteria 1+ Urine Mucus 1+ Urine Test Negative Radiography Diagnostic Testing: Clinical Impression(s) from Imaging Studies Abdomen/Pelvis CT 03/12/25 10:00 IMPRESSION: The appendix is enlarged to 1.1 cm in diameter, image 86/126, with no evidence of rupture or periappendiceal inflammation. There is a 0.8 cm cyst at the upper pole of the left kidney. There is a 3.5 cm cyst or follicle on the right ovary. Critical results were discussed with Dr. Sneed by Dr. Christensen at the time of dictation. Reading Location: [facility] Discharge Plan Triage Chief Complaint: Abd Pain ED Provider: Irena Ambriz Dx/Rx/DC Orders Prescriptions: No Action amitriptyline 10 mg Tablet 10 mg PO DAILY hydroxyzine HCl 25 mg tablet 25 mg PO DAILY omeprazole magnesium [Prilosec OTC] 20 mg tablet,delayed release (DR/EC) 20 mg PO DAILY Patient Comments: TAKE 1 TABLET BY MOUTH ONCE DAILY duloxetine [Cymbalta] 20 mg Capsule,Delayed Release(Dr/Ec) 20 mg PO DAILY Dupixent Pen 300 mg/2 mL Pen Injector 300 mg SUBCUT QWEEK Rx Instructions: EVERY OTHER WEEK naproxen [Naprosyn] 500 mg tablet 500 mg PO BID Qty: 20 0RF Proctofoam HC 1-1 % foam 1 applic AR BID PRN (Reason: hemorrhoids) Qty: 10 0RF lidocaine 4 % gel 1 applic topical TID PRN (Reason: pain) Qty: 30 0RF hydrocortisone [Anusol-HC] 2.5 % cream with perineal applicator 1 applic AR DAILY PRN (Reason: hemorrhoids) Qty: 30 0RF prednisone 20 mg tablet 40 mg PO DAILY 5 Days Qty: 10 0RF hydrocodone-homatropine [Hycodan] 5-1.5 mg/5 mL (5 mL) syrup 5 ml PO 4X/DAY PRN PRN (Reason: cough) 7 Days Qty: 140 0RF ondansetron 4 mg tablet,disintegrating 4 mg PO Q8H PRN (Reason: nausea and vomiting) Qty: 12 0RF naproxen [Naprosyn] 500 mg tablet 500 mg PO BID PRN (Reason: pain) Qty: 20 0RF penicillin V potassium 500 mg tablet 500 mg PO 4X/DAY Qty: 40 0RF Primary Care Provider: Richard Orozco Referrals: Richard Orozco MD [Primary Care Provider] - Print Language: Thai
[2025-03-12 09:19] LABS: Red Blood Cells-Urine 0 SEEN /hpf (0-5)
[2025-03-12 09:29] LABS: Hematocrit 41.5 % (37-47); Hemoglobin 14.7 g/dL (12.0-15.0); Immature Granulocytes Count 0.020 X10^3/uL (0.0-0.0); Mean Corp Hgb Conc 35.4 g/dL (32-36); Mean Corpuscular Volume 88.5 fL (81-99); Mean Platelet Vol. 10.5 fl (6.2-12.0); NRBC Flagged by Analyzer 0 % (0-5); Platelet Count 196 K/mm3 (150-450); RBC Distribution Width CV 12.8 % (11.6-14.6); RBC Distribution Width SD 41.1 fl (35.1-43.9); Red Blood Count 4.69 M/mm3 (4.2-5.4); White Blood Count 7.1 K/mm3 (4.4-11.0)
[2025-03-12 09:36] LABS: Color, Urine Yellow (Yellow); Glucose, Dipstick Normal (Normal); Ketone-Dipstick 5 mg/dl (Negative); Leukocyte Esterase-Dipstick Negative /ul (Negative); Nitrite-Dipstick Negative (Negative); Occult Blood-Urine 10 /ul (Negative); Protein-Dipstick 30 mg/dl (Negative); Specific Gravity, Urine 1.025 (1.002-1.030); Urine Bilirubin Dipstick Negative (Negative)
[2025-03-12 09:43] LABS: Squamous Epithelial Cells - UA 0-5 SEEN /hpf (5-10)
[2025-03-12 09:44] LABS: Internal QC Validated? YES +Cl - CLEAR BKGD; Mucous, Urine 1+ /hpf (<or=2+)
[2025-03-12 09:45] LABS: Pregnancy, Urine Negative Negative; Record Kit Lot#,Urine Preg 0000962302
--- NOTE | 2025-03-12 10:00 | CT_ITS ---
PROCEDURE: ABDOMEN/PELVIS W IV CONT ONLY 03/12/2025 REASON FOR EXAM: RLQ PAIN TECHNIQUE: ABDOMEN/PELVIS W IV CONT ONLY Coronal and Sagittal reconstruction series were provided. CONTRAST: 99 cc Isovue-300 One or more dose reduction techniques were used (e.g., Automated exposure control, adjustment of the mA and/or kV according to patient size, use of iterative reconstruction technique. RADIATION DOSE SUMMARY: DLP: 1186 mGycm COMPARISON: None FINDINGS: Lung bases: Clear Liver: Unremarkable Gallbladder: Surgically absent Spleen: Unremarkable Pancreas: Unremarkable Adrenals: Unremarkable Kidneys: There is a 0.8 cm cyst at the upper pole of the left kidney. There is no renal stone or hydronephrosis. Bladder: Unremarkable Reproductive Organs: There is a 3.5 cm cyst or follicle on the right ovary. Bowel: Gas and stool is noted throughout the colon with a moderate stool load. The small-bowel loops are nondistended. Appendix: The appendix is enlarged to 1.1 cm in diameter, image 86/126, with no evidence of rupture or periappendiceal inflammation. Lymph nodes: There is no pathologic adenopathy by size criteria. Vasculature: Unremarkable Peritoneum / Retroperitoneum: There is no free air or free fluid. Bones: There is no acute bony abnormality. CT/Abdomen/Pelvis W IV Cont ONLY IMPRESSION: The appendix is enlarged to 1.1 cm in diameter, image 86/126, with no evidence of rupture or periappendiceal inflammation. There is a 0.8 cm cyst at the upper pole of the left kidney. There is a 3.5 cm cyst or follicle on the right ovary. Critical results were discussed with Dr. Sneed by Dr. Christensen at the time o f dictation. Reading Location: [id number]
[2025-03-12 10:01] LABS: AST(SGOT) 15 U/L (<=31); Alanine Aminotransfer ALT/SGPT 9 U/L (<=34); Albumin, Serum 4.4 g/dL (3.5-5.0); Alkaline Phosphatase 77 U/L (35-104); Anion Gap 10 (5-15); BUN 9 mg/dL (4-19); BUN/Creat Ratio 12.4 RATIO (10-20); Calcium,Total 9.0 mg/dL (7.6-11.0); Carbon Dioxide 19.6 mmol/L (21.0-32.0); Chloride 108 mmol/L (98-108); Estimated Creatinine Clearance 131.53 ml/min (50-250); Globulin 2.7 g/dL (2.2-4.2); Glucose 83 mg/dL (70-99); Lipase 40 U/L (13-75); Potassium 3.8 mmol/L (3.3-5.1)
[2025-03-12] MEDS: Ceftriaxone 2 GM in 0.9% Normal Saline (50mL MB+) 50 ML IV (11:32)
--- NOTE | 2025-03-12 11:41 | HP.PCM_ITS ---
HPI - General General Date of Admission: 03/12/25 Date of Service: 03/12/25 Chief Complaint: Right lower quadrant pain HPI Narrative JUSTYNA BOND, is a 39 F who presented to the emergency department earlier this morning with complaints of a several week history of abdominal pain. She states that this initially began around the umbilicus and over the past couple of days this seems to have been more pronounced in the right lower quadrant. She states that she has had some low-grade temperatures at home up to 100.5. She is afebrile here in the emergency department today. She denies any urinary type symptoms. She states that this pain has been somewhat gradual in nature. She has had some nausea and vomiting. She states her appetite has been diminished as result. She was seen evaluated by the ER staff. Her laboratory values are fairly unremarkable including a white blood cell count that was normal. She did undergo a CT scan today that showed an appendix measuring about 1.1 cm but no obvious fecalith or periappendiceal stranding to indicate obvious acute appendicitis. The only other findings included but a 3 and half centimeter right ovarian cyst as well as some stool in the colon. It sounds as though her pain does not improve with bowel movements. I have been asked by the ER staff to evaluate the patient for possible appendicitis given her clinical picture. [facility] Medical History (Updated 03/12/25 @ 11:[address] Micky Justin MD) Appendicitis Fibromyalgia Hemorrhoids Acid reflux Constipation Diarrhea Nausea and vomiting Anxiety Hypokalemia Dehydration 15 weeks gestation of Threatened in second trimester Gastroenteritis Home Medications ?Medication ?Instructions ?Recorded ?Last Taken ?Type amitriptyline 10 mg tablet 10 mg PO DAILY 12/02/20 Unk nown History duloxetine 20 mg capsule,delayed 20 mg PO DAILY Unknown History release (Cymbalta) dupilumab 300 mg/2 mL subcutaneous 300 mg subcut QWEEK 12/02/20 Unknown History pen injector (Dupixent) hydroxyzine HCl 25 mg tablet 25 mg PO DAILY 12/02/20 U nknown History naproxen 500 mg tablet (Naprosyn) 500 mg PO BID #20 ta bs 12/02/20 Unknown Rx omeprazole magnesium 20 mg 20 mg PO DAILY 12/02/20 Unk nown History tablet,delayed release (Prilosec OTC) hydrocortisone 1 %-pramoxine 1 % 1 applic MS BID PRN h emorrhoids 01/09/22 Unknown Rx rectal foam (Proctofoam HC) #10 grams lidocaine 4 % topical gel 1 applic topical TID PRN nadeen n #30 01/09/22 Unknown Rx grams hydrocortisone 2.5 % topical cream 1 applic MS DAILY P RN hemorrhoids 02/10/22 Unknown Rx with perineal applicator #30 grams (Anusol-HC) hydrocodone-homatropine 5 mg-1.5 5 ml PO 4X/DAY PRN MS N cough 7 02/24/23 Unknown Rx mg/5 mL (5 mL) oral solution days #140 mL (Hycodan) prednisone 20 mg tablet 40 mg (2 x 20 mg) PO DAILY 5 days 02/24/23 Unknown Rx #10 tabs ondansetron 4 mg disintegrating 4 mg PO Q8H PRN nausea and 12/26/23 Unknown Rx tablet vomiting #12 tabs naproxen 500 mg tablet (Naprosyn) 500 mg PO BID PRN pa in #20 tabs 07/05/24 Unknown Rx penicillin V potassium 500 mg 500 mg PO 4X/DAY #40 tab s 07/05/24 Unknown Rx tablet Allergy/AdvReac Type Severity Reaction Status Date / Time No Known Allergies Allergy Verified 03/12/25 08:35 Family History Father Thyroid disorder Surgical History H/O: History of cholecystectomy Social History Smoking Status: Never smoker alcohol intake: never substance use type: does not use ROS Constitutional Constitutional: Reports systems reviewed and no addt'l complaints, except as documented Eyes Eyes: Reports systems reviewed and no addt'l complaints, except as documented ENT HEENT: Reports systems reviewed and no addt'l complaints, except as documented Cardiovascular Cardiovascular: Reports systems reviewed and no addt'l complaints, except as documented Respiratory/Chest Respiratory/Chest: Reports systems reviewed and no addt'l complaints, except as documented Gastrointestinal Gastrointestinal: Reports systems reviewed and no addt'l complaints, except as documented Genitourinary Genitourinary: Reports systems reviewed and no addt'l complaints, except as documented Musculoskeletal Musculoskeletal: Reports systems reviewed and no addt'l complaints, except as documented Vital Signs Vital Signs Vital Signs: 03/12/25 08:34 03/12/25 10:51 03/12/25 11:38 Temperature 97.9 F 98.4 F Temperature Source Temporal Pulse Rate 88 57 L 66 Respiratory Rate 14 16 18 Blood Pressure 152/90 H 110/68 125/96 H Blood Pressure Mean 110 82 105 Pulse Ox 98 100 99 Oxygen Delivery Method Room Air Room Air 03/12/25 11:39 Temperature 98.4 F Temperature Source Oral Pulse Rate 67 Respiratory Rate 18 Blood Pressure 126/96 H Blood Pressure Mean 106 Pulse Ox 99 Oxygen Delivery Method Room Air Weight Weight: 234 lb 12.677 oz Body Mass Index (BMI) 39.0 Physical Exam Narrative She is alert and oriented x 3. She is in no acute distress. Head is normocephalic and atraumatic. Pupils are equal round and reactive to light. Abdomen is soft, obese and nondistended. There is mild tenderness to palpation in the right lower quadrant overlying where the appendix was identified on CT scan. There is no obvious rebound or guarding. No flank tenderness. Results Lab / Micro Data 03/12/25 09:20 03/12/25 09:20 Labs: Laboratory Results - last 24 hr 03/12/25 08:39: Urine Color Yellow, Urine Clarity Sl. Cloudy, Urine pH 6.0, Ur Specific [place] 1.025, Urine Protein 30 H, Urine Glucose (UA) Normal, Urine Ketones 5 H, Urine Occult Blood 10 H, Urine Nitrite Negative, Urine Bilirubin Negative, Urine Urobilinogen 1 H, Ur Leukocyte Esterase Negative, Urine RBC 0 SEEN, Urine WBC 0 SEEN, Ur Squamous Epith Cells 0-5 SEEN, Urine Bacteria 1+, Urine Mucus 1+, Urine Test Negative 03/12/25 09:20: WBC 7.1, RBC 4.69, Hgb 14.7, Hct 41.5, MCV 88.5, MCH 31.3, MCHC 35.4, RDW Std Deviation 41.1, RDW Coeff of Onel 12.8, Plt Count 196, MPV 10.5, Immature Gran % (Auto) 0.300, Neut % (Auto) 67.5, Lymph % (Auto) 24.8, [place] % (Auto) 5.3, Eos % (Auto) 1.7, Baso % (Auto) 0.4, Absolute Neuts (auto) 4.8, Absolute Lymphs (auto) 1.76, Nucleated RBC % 0, Sodium 138, Potassium 3.8, Chloride 108, Carbon Dioxide 19.6 L, Anion Gap 10, BUN 9, Creatinine 0.71, Estim Creat Clear Calc 131.53, Est GFR (MDRD) Non-Af 113, BUN/Creatinine Ratio 12.4, Glucose 83, Calcium 9.0, Total Bilirubin 0.48, AST 15, ALT 9, Alkaline Phosphatase 77, Total Protein 7.1, Albumin 4.4, Globulin 2.7, Albumin/Globulin Ratio 1.6, Lipase 40 Imaging Radiology Impression Abdomen/Pelvis CT 03/12/25 10:00 IMPRESSION: The appendix is enlarged to 1.1 cm in diameter, image 86/126, with no evidence of rupture or periappendiceal inflammation. There is a 0.8 cm cyst at the upper pole of the left kidney. There is a 3.5 cm cyst or follicle on the right ovary. Critical results were discussed with Dr. Sneed by Dr. Christensen at the time of dictation. Reading Location: [facility] Assessment & Plan Assessment/Plan (1) Appendicitis: PLAN: Plan The patient is a 39-year-old female with periumbilical pain over the past several weeks which now seems to be more located in the right lower quadrant. She presented with this pain along with nausea, vomiting and low-grade fevers. CT scan showed what appeared to be a enlarged and enhanced appendix however there was no obvious periappendiceal stranding. Clinically I suspect she more than likely does represent a chronic smoldering appendicitis type picture. I did offer her the option of a diagnostic laparoscopy with laparoscopic appendectomy. We discussed the details of the planned procedure including the risks benefits and alternatives. She wishes to proceed. This will be scheduled for later this afternoon as her last oral intake was coffee with cream around 8 AM today
[2025-03-12 13:24] LABS: Internal QC Validated? YES +Cl - CLEAR BKGD; Pregnancy, Urine Negative Negative; Record Kit Lot#,Urine Preg 0000962302
[2025-03-12] MEDS: metroNIDAZOLE 500 MG/100 ML BAG 100 MG IV (13:37)
--- NOTE | 2025-03-12 13:38 | PCM.PRE.AN2 ---
ASA Classification* ASA Classification ASA Classification: 2 Assessment & Plan Anesthesia* Anesthesia Assessment Anesthesia Assessment: Discussed sedation and/or anesthesia options, risks, benefits, and alternatives with patient/parents/legal guardian/POA. Questions invited. The patient/parents/legal guardian/POA seems to understand and agrees to proceed with anesthesia plan. Reviewed the physical assessment, medical history, allergy history and patient home medications list prior to surgery/procedure/anesthetic and documented any changes. Performed airway and anesthesia risk assessments. Anesthesia Type Anesthesia Type: General History Source History Obtained from:: Patient and Chart Anesthesia Focused Assessment* Temperature: 98.7 F Pulse Rate: 79 Blood Pressure: 98/73 Respiratory Rate: 18 Pulse Ox: 98 Oxygen Delivery Method: Room Air Airway Assessment Mouth opens: >3 cm Mallampati Score: I Teeth Condition: Caps/Crowns (Cap on tooth #6. It is tight.) and Chipped/Broken (Tooth #5 is broken.) Neck Range of motion (ROM): Full ROM Labs Anesthesia Preop lab: CBC WBC 7.1 K/mm3 (4.4-11.0) 03/12/25 09:20 03/12/25 RBC 4.69 M/mm3 (4.2-5.4) 03/12/25 09:20 03/12/25 Hgb 14.7 g/dL (12.0-15.0) 03/12/25 09:20 03/12/25 Hct 41.5 % (37-47) 03/12/25 09:20 03/12/25 Plt Count 196 K/mm3 (150-450) 03/12/25 09:20 03/12/25 CHEMISTRY Potassium 3.8 mmol/L (3.3-5.1) 03/12/25 09:20 03/12/25 Sodium 138 mmol/L (133-145) 03/12/25 09:20 03/12/25 BUN 9 mg/dL (4-19) 03/12/25 09:20 03/12/25 Creatinine 0.71 mg/dL (0.70-1.20) 03/12/25 09:20 03/12/25 Glucose 83 mg/dL (70-99) 03/12/25 09:20 03/12/25 TSH 0.25 uIU/mL (0.358-3.74) L 12/06/18 15:00 12/06/18 COAG HCG, Quant 3819 mIU/mL (1-3) H 11/13/18 09:36 11/13/18 Urine Test Negative Negative 03/12/25 12:42 03/12/25 Pre-Assessment Diagnosis/Proposed Procedure Planned Operative Procedure(s): Laparoscopic appendectomy Anesthesia History Anesthesia History - 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 When Was Last Pacemaker Check QUESTION #4 FULL TEXT: You/Your Family Experience fever (hyperthermia) with Anesthesia Last Oral Intake Last Oral intake: Last Oral Intake NPO since 05:00 03/12/25 12:22 Meds taken in AM with sips of water? Meds patient instructed to take am of surgery Any additional information?: Yes NPO since: 08:00 (Coffee with cream at 8 AM.) Meds taken in AM with sips of water?: No PONV PONV - business development specialist: PONV - business development specialist Female HX of Motion Sickness HX of N/V After Surgery Non-Smoker Duration of Surgery greater than 60 minutes Number of Risk Factors PONV Score Height & Weight Height & Weight: Anesthesia: Height & Weight Height 5 ft 5 in 03/12/25 12:22 Weight: 101.9 kg 03/12/25 12:22 Body Mass Index (BMI) 37.3 03/12/25 12:22 Respiratory Assessment Respiratory Assessment - business development specialist: Respiratory Tract Infection Hx - business development specialist Hx Respiratory Tract Infection Any additional information?: Yes Hx Respiratory Tract Infection: No STOP Sleep Apnea STOP Sleep Apnea - business development specialist: STOP Sleep Apnea - business development specialist Hx Hypertension No 03/12/25 12:22 Hx Sleep Apnea No 03/12/25 12:22 CPAP BIPAP Do you snore loudly (louder No 03/12/25 12:22 than talking or can be heard Do you often feel tired/ No 03/12/25 12:22 fatigued/ sleepy during daytime? Has anyone observed you stop No 03/12/25 12:22 breathing during sleep? STOP Results Negative 03/12/25 12:22 QUESTION #5 FULL TEXT : Do you snore loudly (louder than talking or can be heard through closed doors)? Tobacco Use History Tobacco Use History - business development specialist: Tobacco Use History - business development specialist Tobacco Use Non-smoker 12/02/20 11:55 Smoking Status Current every day smoker 03/12/25 12:22 Hx Tobacco Use No 03/12/25 12:22 Years Smoking Packs Smoked per Day 1 03/12/25 12:22 Smoking Cessation Date was within the last 15 years Hx Smoking Cessation Date Hx Smoking Cessation Counseling Any additional information?: Yes Smoking Status: Current every day smoker (Patient smoked today.) Hematologic Medial History Hematologic Hx - business development specialist: Hematologic Medical Hx - business administration instructor Hx of Blood Transfusion No 03/12/25 12:22 Hx of Transfusion in last 3 No 03/12/25 12:22 Months Date of Last Transfusion (if within last 3 months) Ever experience any problems No 03/12/25 12:22 with transfusion(s)? Specify any problems Hx of Preganancy in last 3 No 03/12/25 12:22 Months Nurse Filling Out Transfusion [email or web address] 03/12/25 12:22 & Questions: Date: 03/12/25 03/12/25 12:22 Time: 12:43 03/12/25 12:22 Patient unable to answer at this time (ie. confused, unrespo /Reproduction History /Reproductive History - business development specialist: /Reproductive Hx- business development specialist Hx Now No 03/12/25 12:22 Gestational Age (in weeks): EDC: Hx Hx Para Hx Section SAB No 03/12/25 12:22 Active Medications Active Medications: Current Medications Generic Name Dose Route Start Last Admin Trade Name Freq PRN Reason Stop Dose Admin Acetaminophen 1,000 mg 03/12/25 14:00 Acetaminophen 500 Mg Tablet PO Q8 DASHA Amitriptyline HCl 10 mg 03/13/25 10:00 Amitriptyline 10 Mg Tablet PO DAILY DASHA Hydroxyzine Pamoate 25 mg 03/13/25 10:00 Hydroxyzine Mara 25 Mg Capsule PO DAILY DASHA Dextrose/Sodium Chloride 1,000 mls @ 100 mls/hr 03/12/25 12:20 Dextrose 5%/0.9% Nacl IV .Q10H DASHA Piperacillin Sod/Tazobactam 50 mls @ 12.5 mls/hr 03/12/25 14:00 Sod 3.375 gm/ Sodium Chloride IV Q8 [facility] Sodium Chloride 1,000 mls @ 15 mls/hr 03/12/25 13:05 IV .Q48H DASHA Ibuprofen 800 mg 03/12/25 14:00 Ibuprofen 400 Mg Tablet PO Q8 [facility] Morphine Sulfate 2 - 4 mg 03/12/25 12:20 Morphine 2 Mg/Ml Syringe IV Q3H PRN PRN Pain Score 6-10 Ondansetron HCl 4 mg 03/12/25 12:20 Ondansetron 4 Mg/2 Ml Vial IV Q8H PRN PRN NAUSEA/VOMITING Oxycodone HCl 10 mg 03/12/25 12:20 Oxycodone 5 Mg Tablet PO Q4H PRN PRN Pain Score 4-10 Pantoprazole Sodium 40 mg 03/13/25 10:00 Pantoprazole Sodium 40 Mg Tablet PO DAILY [facility] Prednisone 40 mg 03/13/25 10:00 Prednisone 20 Mg Tablet PO DAILY [facility] Sodium Chloride 10 - 40 ml 03/12/25 12:47 0.9% Saline Lock 10 Ml Syringe IV UD PRN SALINE FLUSH PFSH Medical History Appendicitis Fibromyalgia Hemorrhoids Acid reflux Constipation Diarrhea Nausea and vomiting Anxiety Hypokalemia Dehydration 15 weeks gestation of Threatened in second trimester Gastroenteritis Home Medications ?Medication ?Instructions ?Recorded ?Last Taken ?Type amitriptyline 10 mg tablet 10 mg PO DAILY 12/02/20 Unknown History duloxetine 20 mg capsule,delayed 20 mg PO DAILY 12/02/20 Unknown History release (Cymbalta) dupilumab 300 mg/2 mL subcutaneous 300 mg subcut QWEEK 12/02/20 Unknown History pen injector (Dupixent) hydroxyzine HCl 25 mg tablet 25 mg PO DAILY 12/02/20 Unknown History naproxen 500 mg tablet (Naprosyn) 500 mg PO BID #20 tabs 12/02/20 Unknown Rx omeprazole magnesium 20 mg 20 mg PO DAILY 12/02/20 Unknown History tablet,delayed release (Prilosec OTC) hydrocortisone 1 %-pramoxine 1 % 1 applic SC BID PRN hemorrhoids 01/09/22 Unknown Rx rectal foam (Proctofoam HC) #10 grams lidocaine 4 % topical gel 1 applic topical TID PRN pain #30 01/09/22 Unknown Rx grams hydrocortisone 2.5 % topical cream 1 applic SC DAILY PRN hemorrhoids 02/10/22 Unknown Rx with perineal applicator #30 grams (Anusol-HC) hydrocodone-homatropine 5 mg-1.5 5 ml PO 4X/DAY PRN PRN cough 7 02/24/23 Unknown Rx mg/5 mL (5 mL) oral solution days #140 mL (Hycodan) prednisone 20 mg tablet 40 mg (2 x 20 mg) PO DAILY 5 days 02/24/23 Unknown Rx #10 tabs ondansetron 4 mg disintegrating 4 mg PO Q8H PRN nausea and 12/26/23 Unknown Rx tablet vomiting #12 tabs naproxen 500 mg tablet (Naprosyn) 500 mg PO BID PRN pain #20 tabs 07/05/24 Unknown Rx penicillin V potassium 500 mg 500 mg PO 4X/DAY #40 tabs 07/05/24 Unknown Rx tablet Allergy/AdvReac Type Severity Reaction Status Date / Time No Known Allergies Allergy Verified 03/12/25 08:35 Family History Father Thyroid disorder Surgical History H/O: History of cholecystectomy Social History Smoking Status: Current every day smoker tobacco type: cigarettes alcohol intake: never substance use type: does not use Review of Systems (Anesthesia) ROS Narrative System reviewed and no additional complaints, except as documented.
[2025-03-12] MEDS: Lactated Ringers 1,000 ML 1000 ML IV (14:09)
[2025-03-12] MEDS: Lidocaine 1% (5 ml sdv) 5 ML Vial 10 ML IV (14:10)
[2025-03-12] MEDS: Midazolam 2 MG/2 ML Syringe IV (14:10)
[2025-03-12] MEDS: Piperacil/Tazobactam 3.375 GM/50 ML ML IV (14:15)
[2025-03-12] MEDS: Ketorolac 30 MG/ML Syringe IV ×2 (14:45→20:10)
[2025-03-12] MEDS: Bupiv/Epi 0.25% 30 ML Vial (14:57)
--- NOTE | 2025-03-12 15:00 | APP_PTH ---
PATIENT: JUSTYNA BOND LOC: [facility] U#:[id number] AGE/SX: 39/F ROOM: [facility]311 RE03/12/[address]: Dr. Micky Justin MD : 1985 BED: 1 DIS: 03/13/2025 SPEC #: [id number] RECD: 03/12/25 15:18 STATUS: FREEDOM [place]ohini #: [id number] RAMA: 03/12/25 15:[address]: Micky Justin DEPT: SURGICAL PATHOLOGY RECD BY: Desean Dasilva ENTERED: 03/13/25 10:19 SP TYPE: APPENDIX OTHR DR: Dr. Richard Orozco MD Tissues: A - Appendix, NOS Procedures: Surgery Specimen Level III HEADER OPERATION: Laparoscopic appendectomy PRE-OP DIAGNOSIS: Appendicitis TISSUE SUBMITTED: A- Appendix MICROSCOPIC DIAGNOSIS A. Cecal appendix, laparoscopic appendectomy: * Fibrous obliteration of the entire lumen without active inflammation MICROSCOPIC DESCRIPTION Slides are reviewed. GROSS DESCRIPTION A. Received in formalin labeled with the patient's name and date of . Designated as appendix is a 4.8 x 0.3 cm stoddard-pink appendix with up to 1.5 cm of attached mesoappendix. The proximal margin is inked black and shaved. Sections have stoddard-pink cut surfaces. The specimen is entirely submitted (devoid of the excess mesoappendix and staple line) in 2 cassettes as follows: A1: Cross-sectionsA2: Distal tip, margin and cross-section NM 03/13/2025 CPT:43278
[2025-03-12] MEDS: 0.9% Normal Saline (1000mL) 200 ML IV (15:05)
--- NOTE | 2025-03-12 15:16 | PCM.POST.ANE ---
Anesthesia: Postop Eval I Current Vital Signs Temperature: 98.3 F Pulse Rate: 99 Blood Pressure: 128/81 Respiratory Rate: 16 Pulse Ox: 97 Assessment Airway patent: Yes Spontaneous unlabored respirations: Yes nausea: No Vomiting: No Anesthesia Complication: No Fluid Hydration Crystalloid volume administer (ml): 1,200 Total IV fluid infused: 1,200 Progress Note Anesthesia document: Postop Eval 1 completed: Yes
--- NOTE | 2025-03-12 15:17 | PCM.OPRPT ---
Problems Associated Problem List Diagnoses (1) Appendicitis: Multi Select Codes Digestive Digestive CPT Codes: 97991 Freeing of bowel adhesion and 04680 Laparoscopy appendectomy Operative Report (Standard) Operative Information Date of Procedure: 03/12/25 Pre-Operative Diagnosis: RLQ pain / appendicitis Post-Operative Diagnosis: same - adhesions Surgery/Procedure Performed: 1. Laparoscopic appendectomy 2. Lysis of adhesions intake worker: Yes A/C Tech: Jessie Corcoran Tasks completed by car rental sales assistant: Closing, Retracting and Other Additional water quality assistant?: No Type of Anesthesia: General and Local RN Documented Start/Stop Times: Operation Date: 03/12/25 15:00 Case Time Into Pre-Op 03/12/25 12:58 Anesthesia Start 03/12/25 14:03 Into Room 03/12/25 14:03 Procedure Start 03/12/25 14:23 Procedure End 03/12/25 15:03 Anesthesia End 03/12/25 15:10 Out of Room 03/12/25 15:10 Into Recovery 03/12/25 15:14 Procedure Start Time: 14:23 Procedure Stop Time: 15:03 Select all DRAINS/GRAFTS/IMPLANTS that apply: None Special Medications: IV Zosyn Estimated Blood Loss: Minimal Specimen collected: Yes Description of specimen(s) removed: Appendix Description of surgery: The patient is a 39-year-old female who presented to the emergency department with right lower quadrant abdominal pain that initially started periumbilical region. She states that this has been present for weeks however in the last few days this has radiated to the right lower quadrant. She presented to the emergency room. She was also having some low-grade fevers. White count was normal however CAT scan showed an appendix measuring up to about a centimeter however this did not show any periappendiceal stranding. Given her symptoms and presentation, appendicitis was of concern. I offered her a laparoscopic appendectomy as treatment. We discussed the details of the planned procedure and she wished to proceed. She was brought to the operating room today following informed consent. Antibiotics were being given and a timeout was performed. She was placed supine on the operative table with arms outstretched and arm boards. General anesthesia was induced. Once adequately sedated her left arm was tucked at her side. The abdomen is then prepped and draped in the usual sterile manner. A 5 mm incision was made just below the umbilicus which a 5 mm trocar was placed optically. This was placed without incident. A 5 mm 0 degree scope was inserted. There were no signs of bowel or vascular injury. Next a 12 mm trocar was placed under direct visualization in the left upper quadrant and a 5 mm trocar was placed in the left lower quadrant. Both of these were placed under direct visualization and without difficulty. The right lower quadrant is then visualized. There was quite a bit of adhesions involving the right colon. These need to be taken down in order to visualize the cecum and appendix. A harmonic scalpel was utilized to take down these adhesions. After doing so the cecum was able to be reflected in a cephalad direction. The appendix was able to be visualized. This appeared to be chronically fibrosed however it did not appear to be acutely inflamed per se. Size was slightly on the upper limit of normal. Appendectomy was performed by using a [place] dissector to create a small window in the mesentery near the base of the appendix. A FRITZ stapler was fired across the base of the appendix. A harmonic scalpel was then used to take down the mesoappendix. This was performed without difficulty. The specimen was then placed into a bag and brought out through the 12 mm trocar site. Some additional adhesions were taken down. I was able to visualize the right ovary and this appeared to have a moderate-sized cyst. No signs of abscess or other abnormalities. Small bowel was run from the terminal ileum proximally for several feet to rule out Meckel's diverticulum. Next the fascia at the 10 mm trocar site was closed using 0 PDS in the fascial closure device. The remaining trocars were opened up. Insufflation was allowed to escape. Hemostasis was excellent. All counts were correct. Local anesthetic was injected into each of the incisions. The incisions were then closed with 4-0 Vicryl. Skin glue was then applied as dressing. She was awakened from anesthesia and taken to recovery in good condition. Surgical Findings: 1. Intra-abdominal adhesions 2. Chronically fibrosed appendix Complications Complications: No Admit VTE Documentation VTE Present on Admission: No VTE Mechan Device Prophylaxis: SCD's VTE Pharm Prophylaxis ordered?: Yes
[2025-03-12] MEDS: Piperacil/Tazobactam 3.375 GM in 0.9% Normal Saline (50mL MB+) 50 ML IV ×2 (17:33→23:25)
--- OUTSIDE RECORDS SUMMARY | 2025-03-12 18:22 | XMS RPT_ITS | CCD ---
Author Organization [facility] Team Providers Care Occupational Health Technician Name Role Phone JAYNE ZHANG Unavailable Unavailable ZANA ABDUL Unavailable Unavailab nando NO PRIMARY CARE, Unavailable Unavailable JAYNE ZHANG Unavailable Unavailable ZANA ABDUL Unavailable Unavailab nando NO PRIMARY CARE, Unavailable Unavailable BRYNN XIONG Unavailable Unavailable BRYNN XIONG Unavailable Unavailable IMCA Unavailable Unavailable ELOY GORE Unavailable Unavailable PHYSICIAN, NONE Unavailable Unavailable Pcp, No Unavailable Unavailable Laney Hunter MD Primary Care Provider Pcp, No Unavailable Unavailable Laney Hunter MD Primary Care Provider [phone] Pcp, No Unavailable Unavailable Laney Hunter MD Primary Care Provider [phone] Pcp, No Unavailable Unavailable Laney Hunter MD Primary Care Provider [phone] Pcp MASTER AUTOMOTIVE TECHNICIAN, No Unavailable Unavailable Laney Hunter MD Primary Care Provider [phone] Chan MASTER AUTOMOTIVE TECHNICIAN.John MUNSON Unavailable Jesus Meza Attending Unavailable Richard Hunter Primary Care Unavailable Jayant Astudillo Attending Unavailable Richard Hunter Primary Care Unavailable Pcp MASTER AUTOMOTIVE TECHNICIAN, No Unavailable Unavailable Unavailable Primary Care Provider UnavailDANIEL Meredith Referring Unavailable LANEY HUNTER Primary Care Unavailable RENITA VINCENT Attending UnavailLANEY Martinez Primary Care Unavailable BRADLY ROY Attending Unavailable LANEY HUNTER Primary Care Unavailable HILL MENDOZA Referring Unavailable LANEY HUNTER Primary Care Unavailable OJHN GILES Referring Unavailable LANEY HUNTER Primary Care Unavailable HILL MENDOZA Referring Unavailable LANEY HUNTER R Primary Care Unavailable JOHN GILES Attending Unavailable MARJORIEK, LANEY R Primary Care Unavailable HILL MENDOZA B Referring Unavailable KONTAK, LANEY R Primary Care Unavailable HILL MENDOZA B Attending Unavailable KONTAK, LANEY R Primary Care Unavailable REJI, HILL B Referring Unavailable KONTAK, LANEY R Primary Care Unavailable JOHN GILES Referring Unavailable KONTAK, LANEY R Primary Care Unavailable REJI, HILL B Referring Unavailable KONTAK, LANEY R Primary Care Unavailable REJI, HILL B Referring Unavailable KONTAK, LANEY R Primary Care Unavailable JOHN GILES Attending Unavailable KONTAK, LANEY R Primary Care Unavailable REJI, HILL B Referring Unavailable KONTAK, LANEY R Primary Care Unavailable REJI, HILL B Referring Unavailable KONTAK, LANEY R Primary Care Unavailable REJI, HILL B Referring Unavailable KONTAK, LANEY R Primary Care Unavailable KONTAK, LANEY R Primary Care Unavailable BRADLY ROY Attending Unavailable LANCETAK, LANEY R Primary Care Unavailable REJI, HILL B Referring Unavailable KONTAK, LANEY R Primary Care Unavailable BRADLY ROY Referring Unavailable DANIEL HARDIN Attending Unavailable LANCETAK, LANEY R Primary Care Unavailable SELF Referring Unavailable JOHN GILES Attending Unavailable LANCETAK, LANEY R Primary Care Unavailable JOHN GILES Referring Unavailable KONTAK, LANEY R Primary Care Unavailable JOHN GILES Referring Unavailable KONTAK, LANEY R Primary Care Unavailable CHAD MENDOZALE B Referring Unavailable CHAD MENDOZALE B Attending Unavailable JOHN VIVAS Attending Unavailable JOHN VIVAS Attending Unavailable JOHN VIVAS Attending Unavailable Ernesto NEWSOME, Dr. Ramso Primary Care Provider Katina NEWSOME, Dr. Osborn Emergency Provider Unavailab nando Justin MD, Dr. Micky Conner Admit Provider [phone] Margoth NEWSOME, Dr. Micky Conner Attending Provider Medications Current Medications Medication Drug Class(es) Dates Sig (Normalized) Sig (Original) acetaminophen 325 mg / HYDROcodone bitartrate 5 mg oral tablet (8 sources) Opioid Agonist Start: 02-13-2022 End: 02-15-2022 take 1 tablet by mouth twice daily as needed for pain HYDROcodone-aceta minophen (NORCO) 5-325 mg per tablet Indications: Anal fissure Take 1 tablet by mouth twice daily as needed for pain for up to 2 days. 4 tablet 0 02/13/2022 02/15/2022 Active Start: 12-24-2018 End: 12-27-2018 Hydrocodone-Acetaminophen 1 TABLET tablet Discontinued 1 {tbl} PO EVERY 6 HOURS NEEDED as needed for Pain 8 3 0 December 24, 2018 12:00am December 26, 2018 12:00am December 27, 2018 12:07am Anal fissure Anal fissure, unspecified Start: 12-24-2018 End: 12-27-2018 take 1 tablet by mouth every six hours as needed Hydrocodone-Acetaminophen Discontinued 1 TABLET PO EVERY 6 HOURS NEEDED 8 3 December 24, 2018 12:00am December 27, 2018 12:07am Comment on above: Take 1 tablet by jim th twice daily as needed for pain for up to 2 days. [id number] 200 actuat albuterol 0.09 mg/actuat metered dose inhaler (18 sources) beta2-Adrenergic Agonist Start: End: take 2 puff(s) by inhalation every four hours as needed for wheezing albuterol HFA (PROVENTIL HFA, VENTOLIN HFA) 90 mcg/actuation inhaler Inhale 2 Puffs as instructed every 4 hours as needed for wheezing/shortness of breath. 1 Each 01/24/2023 07/15/2024 Discontinued Comment on above: Inhale 2 Puffs as in structed every 4 hours as needed for wheezing/shortness of breath. amitriptyline hydrochloride 10 mg oral tablet (20 sources) Tricyclic Antidepressant Start: End: take 1 tablet by mouth once daily Amitriptyline 10 mg Tablet Active 10 mg PO DAILY December 02, 2020 12:00am Comment on above: TAKE 1 TABLET BY JIM TH EVERYDAY AT BEDTIME benzonatate 100 mg oral capsule (13 sources) Non-narcotic Antitussive Start: End: take 1 capsule by mouth three times daily as needed benzonatate (TESSALON PERLE) 100 mg capsule Indications: Persistent cough for 3 weeks or longer Take 1 capsule by mouth three times a day as needed. 30 capsule 08/20/2023 07/15/2024 Discontinued Start: 06-22-2023 End: 07-04-2023 take 2 capsules by mouth every eight hours as needed benzonatate (TESSALON PERLES) 100 mg capsule Take 2 capsules by mouth three times a day as needed. 30 capsule 06/22/2023 07/04/2023 Discontinued Comment on above: Take 2 capsules by m outh three times a day as needed. Take 1 capsule by mo uth three times a day as needed. cholecalciferol 1.25 mg oral capsule (20 sources) Vitamin D Start: End: take 1 capsule by mouth every week cholecalciferol, Vitamin D3, (VITAMIN D3) 1,250 mcg (50,000 unit) cap capsule Take 1 capsule by mouth one time a week. 12 capsule 1 01/08/2025 07/07/2025 Active cyclobenzaprine hydrochloride 10 mg oral tablet (5 sources) Muscle Relaxant Start: End: take 0.5 tablet by mouth once daily at bedtime cyclobenzaprine (FLEXERIL) 10 mg tablet Indications: Anal or rectal pain Take 0.5 tablets by mouth daily at bedtime for 14 days. 7 tablet 0 03/21/2022 04/04/2022 Active Comment on above: Take 0.5 tablets by mouth daily at bedtime for 14 days. diazePAM suppository 5 mg (CPD) (5 sources) Start: End: diazePAM suppository 5 mg (CPD) Indications: Anal fissure 1 Suppository by RECTAL route twice daily as needed for up to 14 days. Unwrap and insert as directed. 28 Suppository 0 02/15/2022 03/01/2022 Active Comment on above: 1 Suppository by REC DEBI route twice daily as needed for up to 14 days. Unwrap and insert as directed. doxycycline hyclate 100 mg oral tablet (1 source) Tetracycline-class Drug Start: End: take 1 tablet by mouth twice daily doxycycline (VIBRA-TABS) 100 mg tablet Take 1 tablet by mouth two times a day for 7 days. 14 tablet 0 06/22/2023 06/29/2023 Active Comment on above: [facility] for 7 days. DULoxetine 20 mg delayed release oral capsule (4 sources) Serotonin and Norepinephrine Reuptake Inhibitor Start: take 1 capsule by mouth once daily Duloxetine (Cymbalta) 20 mg Capsule,Delayed Release(Dr/Ec) Active 20 mg PO DAILY December 02, 2020 12:00am ergocalciferol 1.25 mg oral capsule (12 sources) Provitamin D2 Compound Start: End: take 1 capsule by mouth every week ergocalciferol 50,000 unit capsule (VITAMIN D2, DRISDOL) Take 1 capsule by mouth one time a week. 12 capsule 08/23/2023 07/15/2024 Discontinued Comment on above: Take 1 capsule by mo [facility] one time a week. fluconazole 150 mg oral tablet (2 sources) Azole Antifungal Start: End: take 1 tablet by mouth once daily fluconazole (DIFLUCAN) 150 mg tablet Indications: Vaginal itching Take 1 tablet by mouth once daily for 1 day. 1 tablet 07/14/2024 07/15/2024 Active homatropine methylbromide 0.3 mg/ml / HYDROcodone bitartrate 1 mg/ml oral solution (2 sources) Opioid Agonist, Cholinergic Muscarinic Agonist Start: Hydrocodone-Homatropi ne (Hycodan) 5-1.5 mg/5 mL (5 mL) syrup Active 5 mL PO 4 TIMES DAILY NEEDED as needed for cough 140 7 0 February 24, 2023 Viral upper respiratory tract infection with cough Acute upper respiratory infection, unspecified Start: 02-24-2023 Hydrocodone-Ho matropine (Hycodan) 5-1.5 mg/5 mL (5 mL) syrup Active 5 ML PO 4 TIMES DAILY NEEDED 140 7 February 24, 2023 hydrocortisone 25 mg/ml topical cream (5 sources) Corticosteroid Start: 02-10-2022 Hydrocortisone (Anusol-Hc) 2.5 % cream with perineal applicator Active 1 NMA RC DAILY as needed for hemorrhoids 30 0 February 10, 2022 12:00am Start: 01-10-2022 End: 02-09-2022 hydrocortisone (ANUSOL-HC) 2 .5 % rectal cream Indications: Internal hemorrhoids by RECTAL route twice daily. 28 g 1 01/10/2022 02/09/2022 Active Comment on above: by RECTAL route twic e daily. hydrocortisone acetate 10 mg/ml / pramoxine hydrochloride 10 mg/ml rectal foam (20 sources) Corticosteroid Start: 01-10-20 End: 04-05-20 Hydrocortisone-Pram oxine (Proctofoam Hc) 1-1 % foam Active 1 NMA RC TWICE A DAY as needed for hemorrhoids 10 January 09, 2022 7:58am Comment on above: 1 Applicator by RECT AL route twice daily. Hydrocortisone-Pramo xine (Proctofoam Hc) 1-1 % foam Active 1 APPLIC RC TWICE A DAY January 09, 2022 7:58am hydrOXYzine hydrochloride 25 mg oral tablet (20 sources) Antihistamine Start: 12-03-19 take 1 tablet by mouth once daily Hydroxyzine Hcl 25 mg tablet Active 25 mg PO DAILY December 02, 2020 12:00am Start: 09-29-2020 End: 04-05-2022 take 1 tablet by mouth every hour for anxiety hydrOXYzine HCl (ATARAX) 25 mg tablet Take one tablet by mouth for one dose 1 hour prior to dental procedure for anxiety. 1 tablet 09/29/2020 04/05/2022 Discontinued (Course of therapy completed) Comment on above: Take one tablet by [facility] for one dose 1 hour prior to dental procedure for anxiety. Inhalational Spacing Device (1 source) Start: 01-24-2023 End: 01-24-2023 Inhalational Spacing Device 1 Device one time only for 1 dose. 1 Each 0 01/24/2023 01/24/2023 Active Comment on above: 1 Device one time on ly for 1 dose. lidocaine 25 mg/ml / prilocaine 25 mg/ml topical cream (7 sources) Antiarrhythmic, Amide Local Anesthetic Start: 02-08-2022 End: 02-15-2022 lidocaine-prilocaine (EMLA) 2.5-2.5 % cream Indications: Anal fissure Apply to affected area as needed for up to 7 days. 30 g 1 02/08/2022 02/15/2022 Active Start: 01-30-2022 End: 02-06-2022 lidocaine-prilocaine (EMLA) 2.5-2.5 % cream Indications: Anal fissure Apply to affected area as needed for up to 7 days. 30 g 0 01/30/2022 02/06/2022 Active Comment on above: Apply to affected ar ea as needed for up to 7 days. megestrol acetate 40 mg oral tablet (2 sources) Progestin Start: 01-27-20 End: 04-26-20 take 1 tablet by mouth once daily megestrol (Megace) 40 MG tablet Indications: AUB Take 1 tablet (40 mg total) by mouth daily. 90 tablet 01/26/2025 04/26/2025 Active metroNIDAZOLE 500 mg oral tablet (2 sources) Nitroimidazole Antimicrobial Start: 07-15-20 End: 07-22-19 take 1 tablet by mouth twice daily metroNIDAZOLE (FLAGYL) 500 mg tablet Take 1 tablet by mouth two times a day for 7 days. 14 tablet 07/15/2024 07/22/2024 Active naproxen 500 mg oral tablet (20 sources) Nonsteroidal Anti-inflammatory Drug Start: 07-05-20 take 1 tablet by mouth twice daily as needed for pain Naproxen (Naprosyn) 500 mg tablet Active 500 mg PO TWICE A DAY as needed for pain July 05, 2024 1:00am Start: 12-02-2020 End: 04-05-2022 take 1 tablet by mouth twice daily at mealtime naproxen (NAPROSYN) 500 mg tablet Take 500 mg by mouth two times a day with meals. 07/05/2024 Active Comment on above: Take by mouth. NIFEdipine (11 sources) Dihydropyridine Calcium Channel Ani Start: 2021 End: 2021 NIFEdipine topical ointment 0.2% (CPD) Indications: Anal fissure by RECTAL route three times daily. 30 g 0 01/30/2022 03/01/2022 Active Comment on above: by RECTAL route thre e times daily. nystatin [id number] unt/ml topical cream (3 sources) Polyene Antifungal Start: 2023 End: 2024 nystatin (MYCOSTATIN) cream Indications: Vaginal itching Apply to affected area two times a day for 14 days. 30 g 07/14/2024 07/28/2024 Active ondansetron 4 mg disintegrating oral tablet (1 source) Serotonin-3 Receptor Antagonist Start: 2023 take 1 tablet by mouth every eight hours as needed for nausea and vomiting Ondansetron 4 mg tablet,disintegrating Active 4 mg PO Q8H as needed for nausea and vomiting December 26, 2023 12:00am pantoprazole 40 mg delayed release oral tablet (15 sources) Proton Pump Inhibitor Start: 2024 End: 2024 take 1 tablet by mouth twice daily before mealtime pantoprazole DR (PROTONIX) 40 mg tablet Indications: Gastroesophageal reflux disease, unspecified whether esophagitis present , Hiatal hernia Take 1 tablet by mouth two times a day before meals. 60 tablet 2 12/29/2024 03/29/2025 Active Start: 08-22-2023 End: 07-15-2024 take 1 tablet by mouth once daily before breakfast pantoprazole DR (PROTONIX) 20 mg tablet Indications: Gastroesophageal reflux disease without esophagitis Take 1 tablet by mouth daily before breakfast. Take on empty stomach, 1/2 hr before meal. 30 tablet 2 08/22/2023 07/15/2024 Discontinued Comment on above: Take 1 tablet by jim th daily before breakfast. Take on empty stomach, 1/2 hr before meal. predniSONE 20 mg oral tablet (9 sources) Start: 02-24-2023 End: 08-25-2023 take 2 tablets by mouth once daily predniSONE (DELTASONE) 20 mg tablet Indications: Persistent cough for 3 weeks or longer Take 2 tablets by mouth once daily for 5 days. 10 tablet 0 08/20/2023 08/25/2023 Active Start: 02-24-2023 take 40 mg by mouth once daily Prednisone Active 40 MG PO DAILY 10 February 24, 2023 12:00am Start: 01-26-2023 End: 01-31-2023 take 2 tablets by mouth once daily predniSONE (DELTASONE) 20 mg tablet Indications: Pharyngitis, unspecified etiology , SOB (shortness of breath) Take 2 tablets by mouth once daily for 5 days. 10 tablet 01/26/2023 01/31/2023 Comment on above: Take 2 tablets by [facility] once daily for 5 days. silver sulfADIAZINE 10 mg/ml topical cream (1 source) Sulfonamide Antibacterial Start: End: silver sulfADIAZINE (SILVADENE,THERMAZENE ) 1 % cream Apply to affected area once daily for 7 days. 59 g 0 03/13/2022 03/20/2022 Active Comment on above: Apply to affected ar ea once daily for 7 days. sucralfate 100 mg/ml oral suspension (6 sources) Aluminum Complex Start: End: take 1 g by mouth every six hours as needed sucralfate (CARAFATE) 100 mg/mL suspension Take 10 mL by mouth four times daily as needed. 414 mL 2 02/16/2022 03/18/2022 Active Comment on above: Take 10 mL by mouth four times daily as needed. sulfamethoxazole 800 mg / trimethoprim 160 mg oral tablet (7 sources) Dihydrofolate Reductase Inhibitor Antibacterial, Sulfonamide Antimicrobial Start: End: take 1 tablet by mouth every twelve hours sulfamethoxazole-trim ethoprim (BACTRIM DS) 800-160 mg per tablet Indications: Urinary symptom or sign , Bilateral flank pain , Microscopic hematuria Take 1 tablet by mouth every 12 hours for 7 days. 14 tablet 0 08/20/2023 08/27/2023 Active Comment on above: Take 1 tablet by [facility] every 12 hours for 7 days. vitamin b12 1 mg oral tablet (2 sources) Vitamin B12 Start: End: take 1 tablet by mouth once daily cyanocobalamin (VITAMIN B-12) 1,000 mcg tab Indications: Other vitamin B12 deficiency anemia Take 1 tablet by mouth once daily. 30 tablet 5 01/13/2025 07/12/2025 Active Completed/Discontinued Medications Medication Drug Class(es) Dates Sig (Normalized) Sig (Original) ADBRY 150 mg/mL injection (10 sources) Start: 11-13-2022 End: 08-22-2023 ADBRY 150 mg/mL injection as directed. 11/13/2022 08/22/2023 Discontinued (Cost of medication) Start: 11-13-2022 End: 08-22-2023 ADBRY 150 mg/mL injection as directed. 0 11/13/2022 08/22/2023 Discontinued (Cost of medication) Start: 11-13-2022 ADBRY 150 mg/m L injection as directed. 0 11/13/2022 Active Comment on above: as directed. bacitracin 0.4 unt/mg / neomycin 0.0035 mg/mg / polymyxin b 10 unt/mg ophthalmic ointment (2 sources) Aminoglycoside Antibacterial, Polymyxin-class Antibacterial Start: 022 End: neomycin-bacitracin -polymyxin (NEOSPORIN) ophthalmic ointment Indications: Eczema of right eyelid Use 1 application in the right eye four times daily. 3.5 g 0 06/01/2022 11/13/2022 Discontinued (Course of therapy completed) Comment on above: Use 1 application in the right eye four times daily. brompheniramine maleate 0.4 mg/ml / dextromethorphan hydrobromide 2 mg/ml / pseudoephedrine hydrochloride 6 mg/ml oral solution (7 sources) alpha-Adrenergic Agonist, Uncompetitive T-mgkztu-F-aspartate Receptor Antagonist, Sigma-1 Agonist Start: 023 End: 023 take 10 mL by mouth four times daily as needed Brompheniramine-Pse udoeph-DM (BROMFED DM) 2-30-10 mg/5 mL syrup Indications: Viral upper respiratory tract infection with cough Take 10 mL by mouth four times a day as needed. 118 mL 07/04/2023 07/04/2023 Discontinued Start: 01-26-2023 End: 02-26-2023 take 10 mL by mouth four times daily as needed Clxcjmlymeylvvh-Rwxbbyrrs-UB (BROMFED DM ) 2-30-10 mg/5 mL syrup Indications: Viral upper respiratory tract infection with cough Take 10 mL by mouth four times daily as needed. 118 mL 01/26/2023 02/26/2023 Discontinued Comment on above: Take 10 mL by mouth four times daily as needed. busPIRone hydrochloride 10 mg oral tablet (20 sources) Start: 07-28-19 End: 04-05-20 22 take 1 tablet by mouth twice daily busPIRone (BUSPAR) 10 mg tablet Indications: Adjustment disorder with mixed anxiety and depressed mood TAKE 1 TABLET BY MOUTH TWICE A DAY 60 tablet 2 07/28/2020 04/05/2022 Discontinued (Discontinued by Patient) Comment on above: TAKE 1 TABLET BY JIM TH TWICE A DAY calcium chloride 0.0014 meq/ml / potassium chloride 0.004 meq/ml / sodium chloride 0.103 meq/ml / sodium lactate 0.028 meq/ml injectable solution (2 sources) Start: 12-11-19 End: 12-12-19 take 5-30 mL intravenously every hour 5-30 mL/hr, INTRAVENOUS, CONTINUOUS, Starting on Sun12/10/24 at 1400, Until Sun12/10/24 at 1456, Preprocedure CALCIUM PHOSPHATE DIBAS/VIT D3 (VITAMIN D, WITH CALCIUM, ORAL) (7 sources) End: 02-14-20 CALCIUM PHOSPHATE DIBAS/VIT D3 (VITAMIN D, WITH CALCIUM, ORAL) Take 2,000 Int'l Units by mouth once daily. 02/13/2022 Discontinued (Other) End: 02-13-2022 CALCIUM PHOSPHATE DIBAS/VIT D3 (VITAMIN D, WITH CALCIUM, ORAL) Take 2,000 Int'l Units by mouth once daily. 0 02/13/2022 Discontinued (Other) CALCIUM PHOSPHAT E DIBAS/VIT D3 (VITAMIN D, WITH CALCIUM, ORAL) Take 2,000 Int'l Units by mouth once daily. 0 Active Comment on above: Take 2,000 Int'l Uni ts by mouth once daily. cetirizine hydrochloride 10 mg oral tablet (20 sources) Histamine-1 Receptor Antagonist Start: 2019 End: 2021 take 1 tablet by mouth once daily cetirizine (ZYRTEC) 10 mg tablet Indications: Contact dermatitis, unspecified contact dermatitis type, unspecified trigger Take 1 tablet by mouth once daily. 30 tablet 2 08/05/2019 04/05/2022 Discontinued (Course of therapy completed) Comment on above: Take 1 tablet by jim once daily. clobetasol propionate 0.5 mg/ml topical cream (4 sources) Corticosteroid Start: 2021 End: 2021 clobetasol (TEMOVATE) 0.05 % cream cocoa butter 0.884 mg/mg / phenylephrine hydrochloride 0.0025 mg/mg rectal suppository (20 sources) alpha-1 Adrenergic Agonist Start: 2018 PHENYLephrine-cocoa butter (PREPARATION H) 0.25-88.44 % supp Phenylephrine Hcl/[place] Butter Active 1 EA EVERY 8 HOURS NEEDED December 23, 2018 11:21am 0 12/23/2018 Active Comment on above: Phenylephrine Hcl/Co coa Butter Active 1 EA EVERY 8 HOURS NEEDED December 23, 2018 11:21am docusate sodium 100 mg oral capsule (4 sources) Start: 2017 End: 2017 take 1 capsule by mouth twice daily Docusate Sodium 100 MG capsule Discontinued 100 mg PO TWICE A DAY 60 1 September 05, 2017 1:00am September 21, 2017 8:00pm constipation 1 po bid while in zofran to prevent constipation 2 ml dupilumab 150 mg/ml prefilled syringe (20 sources) Interleukin-4 Receptor alpha Antagonist Start: 2021 End: 2022 inject 300 mg by subcutaneous injection every other week DUPIXENT SYRINGE 300 mg/2 mL injection Inject 300 mg subcutaneously every other week. 0 05/30/2022 11/13/2022 Discontinued (Discontinued by another Health Care Provider) Start: 12-02-2020 Dupilumab (Dup ixent Pen) 300 mg/2 mL Pen Injector Active 300 mg SC EVERY WEEK December 02, 2020 12:00am EVERY OTHER WEEK End: 01-08-2025 inject 300 mg by subcutaneous injection every other week dupilumab (DUPIXENT PEN) 300 mg/2 mL pen injection Inject 300 mg subcutaneously every 2 weeks. 01/08/2025 Discontinued (Cost of medication) Comment on above: Inject subcutaneousl y every 2 weeks. Inject 300 mg subcut aneously every other week. Inject 300 mg subcut aneously every 2 weeks. famotidine 20 mg oral tablet (15 sources) Histamine-2 Receptor Antagonist Start: 08-26-19 End: 01-09-20 take 2 tablets by mouth once daily at bedtime famotidine (PEPCID) 20 mg tablet Indications: Gastroesophageal reflux disease without esophagitis Take 2 tablets by mouth daily at bedtime. 08/26/2024 01/08/2025 Discontinued (Discontinued by another Health Care Provider) End: 08-26-2024 take 1 tablet by mouth four times daily famotidine (PEPCID) 20 mg tablet Take 20 mg by mouth four times daily. 08/26/2024 Discontinued (Adjust Sig - Block E-Cancel) ferrous sulfate 325 mg oral tablet (20 sources) Start: 07-30-2024 End: 01-08-2025 take 1 tablet by mouth twice daily at mealtime ferrous sulfate 325 mg (65 mg iron) tablet Take 1 tablet by mouth two times a day with meals. 60 tablet 2 07/30/2024 01/08/2025 Discontinued (Discontinued by another Health Care Provider) Start: 12-06-2020 End: 02-13-2022 take 1 tablet by mouth twice daily at mealtime ferrous sulfate 325 mg (65 mg iron) tablet TAKE 1 TABLET BY MOUTH TWICE A DAY WITH MEALS 60 tablet 2 12/06/2020 02/13/2022 Discontinued (Other) Comment on above: TAKE 1 TABLET BY JIM TH TWICE A DAY WITH MEALS FLUoxetine 20 mg oral capsule (2 sources) Serotonin Reuptake Inhibitor Start: 06-28-20 End: 01-11-20 take 1 capsule by mouth once daily FLUoxetine (PROZAC) 20 mg capsule Take 20 mg by mouth once daily. 06/28/2020 01/10/2022 Discontinued Comment on above: Take 20 mg by mouth once daily. fluticasone propionate 0.05 mg/actuat metered dose nasal spray (19 sources) Corticosteroid Start: 01-27-20 End: 08-22-19 24 take 1 spray(s) nasal route twice daily fluticasone (FLONASE ALLERGY RELIEF) 50 mcg/actuation nasal spray Indications: Viral upper respiratory tract infection with cough Use 1 [place] in each nostril two times a day. 1 Each 07/04/2023 08/22/2023 Discontinued (Side Effects) Start: 04-05-2022 End: 06-01-2022 take 2 spray(s) by mouth once daily fluticasone (FLONASE) 50 mcg/actuation nasal spray Indications: ETD (Eustachian tube dysfunction), bilateral USE 2 SPRAYS IN EACH NOSTRIL ONCE DAILY. RINSE MOUTH AFTER USE. 16 mL 0 06/01/2022 06/01/2022 Discontinued (Course of therapy completed) Comment on above: Use 2 Sprays in each nostril once daily. Rinse mouth after use. Use 1 [place] in each nostril twice daily. Use 1 [place] in each nostril two times a day. gabapentin 300 mg oral capsule (12 sources) Anti-epileptic Agent Start: 11-16-2022 End: 02-14-2023 take 1 capsule by mouth twice daily gabapentin (NEURONTIN) 300 mg capsule Take 1 capsule by mouth twice daily for 90 days. 60 capsule 2 11/16/2022 01/26/2023 Discontinued Start: 11-13-2022 End: 08-22-2023 take 1 capsule by mouth once daily at bedtime gabapentin (NEURONTIN) 300 mg capsule Indications: Paresthesia of left arm Take 1 capsule by mouth daily at bedtime for 30 days. 30 capsule 11/13/2022 08/22/2023 Discontinued (Lack of Efficacy) Comment on above: Take 1 capsule by mo [facility] daily at bedtime for 30 days. Take 1 capsule by mo [facility] twice daily for 90 days. ibuprofen 600 mg oral tablet (20 sources) Nonsteroidal Anti-inflammatory Drug Start: 12-14-2021 End: 04-05-2022 ibuprofen (MOTRIN) 600 mg tablet TAKE 1 TABLET BY MOUTH EVERY 6 TO 8 HOURS NEEDED FOR PAIN. MAX 3200MG PER DAY 0 12/14/2021 04/05/2022 Discontinued (Course of therapy completed) Comment on above: TAKE 1 TABLET BY [facility] EVERY 6 TO 8 HOURS NEEDED FOR PAIN. MAX 3200MG PER DAY 10 ml iron sucrose 20 mg/ml injection (7 sources) Parenteral Iron Replacement Start: 11-21-2024 End: 11-21-2024 200 mg, INTRAVENOUS, ONCE, 1 dose, On Sun11/21/24 at 1330, Please conduct a 30 minute post dose observation. Start: 11-14-2024 End: 11-14-2024 200 mg, INTRAVENOUS, ONCE, 1 dose, On Sun11/14/24 at 0830, Please conduct a 30 minute post dose observation. Please run over 15 minutes Start: 10-31-2024 End: 10-31-2024 200 mg, INTRAVENOUS, ONCE, 1 dose, On Sun10/31/24 at 0800, Please conduct a 30 minute post dose observation. Please run over 15 minutes Start: 08-25-2024 End: 08-25-2024 200 mg, INTRAVENOUS, ONCE, 1 dose, On Sun08/25/24 at 1500, Please conduct a 30 minute post dose observation. Start: 08-22-2024 End: 08-22-2024 200 mg, INTRAVENOUS, ONCE, 1 dose, On Sun08/22/24 at 0900, Please conduct a 30 minute post dose observation. Start: 08-20-2024 End: 08-20-2024 200 mg, INTRAVENOUS, ONCE, 1 dose, On Sun08/20/24 at 1400, Please conduct a 30 minute post dose observation. Start: 08-15-2024 End: 08-15-2024 200 mg, INTRAVENOUS, ONCE, 1 dose, On Sun08/15/24 at 0930, Please conduct a 30 minute post dose observation. lidocaine hydrochloride 0.02 mg/mg topical gel (20 sources) Antiarrhythmic, Amide Local Anesthetic Start: 03-07-2022 End: 04-05-2022 lidocaine (XYLOCAINE) 2 % jelly Apply as directed. 30 mL 1 03/13/2022 Active Start: 01-09-2022 lidocaine 4 % gel Apply to affected area. 0 01/09/2022 Active Start: 01-09-2022 Lidocaine 4 % gel Active 1 NMA TOPICAL THREE TIMES A DAY as needed for pain 30 0 January 09, 2022 12:00am Comment on above: Apply to affected ar ea. Apply as directed. linaclotide 0.145 mg oral capsule (13 sources) Guanylate Cyclase-C Agonist Start: 2 End: 3 take 1 capsule by mouth once daily, then take 6 capsules by mouth in the morning linaclotide (LINZESS) 145 mcg capsule Indications: Constipation, chronic , Chronic anal fissure Take 1 capsule by mouth DAILY (6 AM). 30 capsule 1 04/24/2022 11/13/2022 Discontinued (Course of therapy completed) Start: 03-31-2022 End: 04-30-2022 take 1 capsule by mouth once daily linaCLOtide (LINZESS) 72 mcg capsule Indications: Chronic anal fissure , Constipation, unspecified constipation type Take 1 capsule by mouth once daily. Administer on an empty stomach. Swallow whole; DO NOT crush or chew. 30 capsule 0 03/31/2022 04/24/2022 Discontinued (Changing Therapy/Dosage Form) Comment on above: Take 1 capsule by [facility] once daily. Administer on an empty stomach. Swallow whole; DO NOT crush or chew. Take 1 capsule by [facility] DAILY (6 AM). LORazepam 0.5 mg oral tablet (20 sources) Benzodiazepine Start: 10-07-19 End: 08-26-19 LORazepam (ATIVAN) 0.5 mg Take by mouth. 0 10/06/2017 04/24/2022 Discontinued Comment on above: Take by mouth. Take by mouth once d aily as needed. Take 1 mg by mouth o nce daily as needed. omeprazole 40 mg delayed release oral capsule (20 sources) Proton Pump Inhibitor Start: 08-26-19 End: 12-30-19 take 1 capsule by mouth once daily omeprazole (PRILOSEC) 40 mg capsule Indications: Gastroesophageal reflux disease without esophagitis Take 1 capsule by mouth once daily. 30 capsule 2 08/26/2024 12/29/2024 Discontinued Start: 12-02-2020 take 1 tablet by [facility] once daily Omeprazole Magnesium (Prilosec Otc) 20 mg tablet,delayed release (DR/EC) Active 20 mg PO DAILY December 02, 2020 12:00am End: 08-26-2024 take 1 tablet by mouth twice daily Omeprazole 20 mg TbEC Take 1 tablet by mouth two times a day. 08/26/2024 Discontinued (Course of therapy completed) End: 08-22-2023 take 1 capsule by mouth once daily omeprazole magnesium (PRILOSEC ORAL) Take 1 capsule by mouth once daily. 08/22/2023 Discontinued (Lack of Efficacy) End: 08-22-2023 take 1 capsule by mouth once daily omeprazole magnesium (PRILOSEC ORAL) Take 1 capsule by mouth once daily. 0 08/22/2023 Discontinued (Lack of Efficacy) omeprazole magne sium (PRILOSEC ORAL) Take by mouth. 0 Active Comment on above: Take by mouth. Take 1 capsule by [facility] once daily. oxyCODONE hydrochloride 5 mg oral tablet (15 sources) Opioid Agonist Start: 2 End: 2 take 1 tablet by mouth every six hours as needed for pain oxyCODONE IR (ROXICODONE) 5 mg immediate release tablet Indications: Postoperative pain Take 1 tablet by mouth every 6 hours as needed for pain. 10 tablet 0 04/07/2022 06/01/2022 Discontinued (Course of therapy completed) Start: 03-07-2022 End: 03-20-2022 take 1 tablet by mouth every eight hours as needed for pain oxyCODONE IR (ROXICODONE) 5 mg immediate release tablet Indications: Chronic anal fissure Take 1 tablet by mouth every 8 hours as needed for pain for up to 7 days. 21 tablet 0 03/13/2022 03/20/2022 Active Start: 06-23-2019 End: 07-02-2019 take 1 tablet by mouth every six hours as needed for pain Oxycodone 5 MG tablet Discontinued 5 mg PO EVERY 6 HOURS NEEDED as needed for Mod-Severe Pain (-04/24) 15 4 0 June 23, 2019 June 26, 2019 1:00am July 02, 2019 1:11am delivery delivered Postoperative abdominal pain Encounter for delivery without indication Unspecified abdominal pain Comment on above: Take 1 tablet by jim th every 8 hours as needed for pain for up to 7 days. Take 1 tablet by jim th every 6 hours as needed for pain. penicillin v potassium 500 mg oral tablet (12 sources) Start: 07-05-2024 End: 08-26-2024 take 1 tablet by mouth four times daily penicillin V potassium 500 mg tablet Take 500 mg by mouth four times daily. 07/05/2024 08/26/2024 Discontinued (Course of therapy completed) VIT/IRON FUM/FOLIC AC ( VITAMIN ORAL) (7 sources) End: 02-13-2022 take 1 tablet by mouth once daily before mealtime VIT/IRON FUM/FOLIC AC ( VITAMIN ORAL) Take 1 tablet by mouth once daily. 02/13/2022 Discontinued (Other) End: 02-13-2022 take 1 tablet by mouth once daily before mealtime VIT/IRON FUM/FOLIC AC ( VITAMIN ORAL) Take 1 tablet by mouth once daily. 0 02/13/2022 Discontinued (Other) take 1 tablet by jim th once daily before mealtime VIT/IRON FUM/FOLIC AC ( VITAMIN ORAL) Take 1 tablet by mouth once daily. 0 Active Comment on above: Take 1 tablet by jim th once daily. 12 hr pseudoephedrine hydrochloride 120 mg extended release oral tablet (9 sources) alpha-Adrenergic Agonist Start: 04-05-20 End: 06-01-20 take 1 tablet by mouth every twelve hours Pseudoephedrine HCl (SUDAFED SR) 120 mg TbER Indications: ETD (Eustachian tube dysfunction), bilateral Take 1 tablet by mouth every 12 hours. 20 tablet 0 04/05/2022 06/01/2022 Discontinued (Course of therapy completed) Comment on above: Take 1 tablet by jim every 12 hours. PYRIDOXINE HCL, VITAMIN B6, (PYRIDOXINE, VITAMIN B6, ORAL) (7 sources) End: 02-14-20 PYRIDOXINE HCL, VITAMIN B6, (PYRIDOXINE, VITAMIN B6, ORAL) Take by mouth three times daily. 02/13/2022 Discontinued (Other) End: 02-13-2022 PYRIDOXINE HCL, VITAMIN B6, (PYRIDOXINE, VITAMIN B6, ORAL) Take by mouth three times daily. 0 02/13/2022 Discontinued (Other) PYRIDOXINE HCL, VITAMIN B6, (PYRIDOXINE, VITAMIN B6, ORAL) Take by mouth three times daily. 0 Active Comment on above: Take by mouth three times daily. raNITIdine 150 mg oral tablet (8 sources) Histamine-2 Receptor Antagonist Start: 09-03-2017 raNITIdine (ZANTAC) 150 mg tablet Ranitidine Active 150 MG DAILY June 23, 2019 3:18am 0 09/03/2017 Active Comment on above: Ranitidine Active 15 0 MG DAILY June 23, 2019 3:18am sertraline 50 mg oral tablet (20 sources) Serotonin Reuptake Inhibitor Start: 01-09-2022 End: 04-05-2022 sertraline (ZOLOFT) 50 mg tablet triamcinolone acetonide 0.005 mg/mg topical ointment (20 sources) Corticosteroid Start: 09-08-2019 End: 11-13-2022 triamcinolone acetonide topical 0.5 % ointment Indications: Atopic neurodermatitis Apply to affected area twice daily. 30 g 2 09/08/2019 11/13/2022 Discontinued (Course of therapy completed) Comment on above: Apply to affected ar ea twice daily. Problems Active Problems Problem Classification Problem Date Documented Da te Episodic/Chronic Abdominal hernia (6 sources) Gastroesophageal reflux disease with hiatal hernia; Translations: [Diaphragmatic hernia without obstruction or gangrene] Onset: 5 Episodic Adjustment disorders (20 sources) Adjustment disorder with mixed anxiety and depressed mood; Translations: [Adjustment disorder with mixed anxiety and depressed mood] Onset: 8 03-18-2018 Chronic Anal and rectal conditions (20 sources) Rectal pain; Translations: [Other specified diseases of anus and rectum] Episodic Anxiety disorders (1 source) Anxiety; Translations: [Anxiety disorder, unspecified] 03-04-2023 Chronic Appendicitis and other appendiceal conditions (2 sources) Appendicitis; Translations: [Unspecified appendicitis] 03-12-2025 Episodic Deficiency and other anemia (20 sources) Iron deficiency anemia due to blood loss; Translations: [Iron deficiency anemia secondary to blood loss (chronic)] Onset: 5 08-01-2024 Chronic Deficiency and other anemia (1 source) Iron deficiency anemia secondary to blood loss (chronic); Translations: [Iron deficiency anemia due to chronic blood loss] Onset: 5 Chronic Deficiency and other anemia (9 sources) Anemia; Translations: [Anemia, unspecified] 08-23-2023 Episodic Deficiency and other anemia (3 sources) Nutritional anemia; Translations: [Other vitamin B12 deficiency anemias] 08-07-2024 Episodic Deficiency and other anemia (1 source) Other vitamin B12 deficiency anemias; Translations: [Other vitamin B12 deficiency anemia] Onset: 5 Episodic Diabetes mellitus without complication (2 sources) Prediabetes; Translations: [Prediabetes] Onset: 5 01-08-2025 Episodic Disorders of teeth and jaw (2 sources) Other specified disorders of teeth and supporting structures; Translations: [Dental caries] Onset: 5 07-13-2024 Episodic Esophageal disorders (17 sources) Gastroesophageal reflux disease without esophagitis; Translations: [Gastro-esophageal reflux disease without esophagitis] Onset: 5 08-22-2023 Chronic Fluid and electrolyte disorders (8 sources) Dehydration; Translations: [Dehydration] 06-24-2019 Episodic Genitourinary symptoms and ill-defined conditions (3 sources) Urinary system finding; Translations: [Unspecified symptoms and signs involving the genitourinary system] 08-20-2023 Episodic Hemorrhage during ; abruptio placenta; placenta previa (4 sources) Threatened miscarriage in second trimester; Translations: [Threatened ] 06-24-2019 Episodic Hemorrhoids (15 sources) Thrombosed external hemorrhoids; Translations: [Perianal venous thrombosis] Episodic Immunizations and screening for infectious disease (1 source) Anti-nuclear factor positive; Translations: [Other specified abnormal immunological findings in serum] 2020 Episodic Inflammation; infection of eye (except that caused by tuberculosis or sexually transmitteddisease) (1 source) Eczematous dermatitis of eyelid; Translations: [Eczematous dermatitis of right eye, unspecified eyelid] Episodic Malaise and fatigue (4 sources) Fatigue; Translations: [Other fatigue] Onset: 5 08-22-2023 Episodic Menstrual disorders (2 sources) Menorrhagia; Translations: [Excessive and frequent menstruation with regular cycle] 08-26-2024 Chronic Mycoses (4 sources) Tinea corporis; Translations: [Tinea corporis] 01-29-2019 Episodic Nausea and vomiting (1 source) Nausea and vomiting; Translations: [Nausea with vomiting, unspecified] 01-03-2024 Episodic Noninfectious gastroenteritis (4 sources) Gastroenteritis; Translations: [Noninfective gastroenteritis and colitis, unspecified] 06-24-2019 Episodic Nonspecific chest pain (7 sources) Chest wall pain; Translations: [Other chest pain] Onset: 4 12-02-2020 Episodic Nutritional deficiencies (20 sources) Vitamin D deficiency; Translations: [Vitamin D deficiency, unspecified] Onset: 5 08-23-2023 Chronic Other connective tissue disease (1 source) Weakness of right hand; Translations: [Other symptoms and signs involving the musculoskeletal system] Episodic Other connective tissue disease (1 source) Pain in left arm; Translations: [Pain in left arm] Episodic Other connective tissue disease (3 sources) Pain in both feet; Translations: [Pain in right foot] 08-26-2024 Episodic Other connective tissue disease (1 source) Fibromyalgia; Translations: [Fibromyalgia] 03-04-2023 Episodic Other female genital disorders (3 sources) Abnormal uterine and vaginal bleeding, unspecified; Translations: [Abnormal uterine and vaginal bleeding, unspecified] Onset: Chronic Other female genital disorders (3 sources) Abnormal uterine bleeding; Translations: [Abnormal uterine and vaginal bleeding, unspecified] 12-25-2024 Chronic Other female genital disorders (1 source) Pruritus of vagina; Translations: [Other specified noninflammatory disorders of vagina] 07-14-2024 Episodic Other gastrointestinal disorders (3 sources) Constipation; Translations: [Constipation, unspecified] Episodic Other gastrointestinal disorders (2 sources) Chronic constipation; Translations: [Other constipation] Episodic Other gastrointestinal disorders (1 source) History of gastroesophageal reflux disease; Translations: [Personal history of other diseases of the digestive system] 12-10-2024 Episodic Other gastrointestinal disorders (1 source) Personal history of other diseases of the digestive system; Translations: [History of esophageal reflux] Onset: Episodic Other gastrointestinal disorders (1 source) Constipation, unspecified; Translations: [Constipation, unspecified constipation type] Onset: Episodic Other hematologic conditions (1 source) History of anemia; Translations: [Personal history of diseases of the blood and blood-forming organs and certain disorders involving the immune mechanism] 08-22-2023 Episodic Other lower respiratory disease (2 sources) Dyspnea; Translations: [Shortness of breath] 01-26-2023 Episodic Other lower respiratory disease (4 sources) Persistent cough; Translations: [Persistent cough for 3 weeks or longer] 08-20-2023 Episodic Other lower respiratory disease (2 sources) Snoring; Translations: [Snoring] 01-08-2025 Episodic Other lower respiratory disease (1 source) Snoring; Translations: [Snoring] Onset: 5 Episodic Other nervous system disorders (1 source) Paresthesia of left upper limb; Translations: [Paresthesia of skin] Episodic Other non-traumatic joint disorders (1 source) Chronic pain of right upper limb; Translations: [Pain in right shoulder] 2020 Episodic Other nutritional; endocrine; and metabolic disorders (20 sources) Body mass index 40+ - severely obese; Translations: [Morbid (severe) obesity due to excess calories] Onset: 2 04-07-2022 Chronic Other nutritional; endocrine; and metabolic disorders (1 source) Morbid (severe) obesity due to excess calories; Translations: [Morbid obesity with BMI of 40.0-44.9, adult (HCC)] Onset: 5 Chronic Other nutritional; endocrine; and metabolic disorders (1 source) Body mass index (BMI) 40.0-44.9, adult; Translations: [Morbid obesity with BMI of 40.0-44.9, adult ([facility])] Onset: 5 Chronic Other screening for suspected conditions (not mental disorders or infectious disease) (12 sources) Decreased thyroid stimulating hormone level; Translations: [Other specified abnormal findings of blood chemistry] Onset: 5 08-23-2023 Episodic Other upper respiratory disease (1 source) Nasal congestion; Translations: [Nasal congestion] 08-22-2023 Episodic Other upper respiratory infections (1 source) Chronic sinusitis; Translations: [Chronic sinusitis, unspecified] 06-22-2023 Chronic Other upper respiratory infections (8 sources) Acute upper respiratory infection; Translations: [Acute upper respiratory infection, unspecified] Episodic Otitis media and related conditions (3 sources) Dysfunction of bilateral eustachian tubes; Translations: [Other specified disorders of Eustachian tube, bilateral] Episodic Residual codes; unclassified (4 sources) Gestation period, 15 weeks; Translations: [15 weeks gestation of ] 06-24-2019 Episodic Residual codes; unclassified (1 source) Procedure not done; Translations: [Procedure and treatment not carried out, unspecified reason] Episodic Residual codes; unclassified (1 source) Influenza-like symptoms; Translations: [Other general symptoms and signs] 01-24-2023 Episodic Residual codes; unclassified (1 source) Tobacco user; Translations: [Tobacco use] 08-22-2023 Episodic Residual codes; unclassified (1 source) Tobacco use; Translations: [Continuous tobacco abuse] Onset: Episodic Skin and subcutaneous tissue infections (4 sources) Eruption; Translations: [Pyoderma] 01-29-2019 Episodic Spondylosis; intervertebral disc disorders; other back problems (2 sources) Backache; Translations: [Dorsalgia, unspecified] 08-22-2023 Episodic Substance-related disorders (1 source) Smoker; Translations: [Nicotine dependence, unspecified, uncomplicated] 01-24-2023 Chronic Unclassified (1 source) Unknown / UNK(Unknown) Onset: Unclassified (2 sources) Procedure; Translations: [Procedure] Onset: 5 Unclassified (2 sources) New Patient; Translations: [New Patient] Onset: Viral infection (1 source) Viral disease; Translations: [Viral infection, unspecified] 08-20-2023 Episodic Past or Other Problems Problem Classification Problem Date Documented Da te Episodic/Chronic Abdominal pain (3 sources) Flank pain; Translations: [Unspecified abdominal pain] Onset: 07-28-2024 08-20-2023 Episodic Deficiency and other anemia (1 source) Anemia, unspecified; Translations: [Anemia, unspecified type] Onset: 08-02-2024 Episodic Other female genital disorders (20 sources) Vaginal bleeding; Translations: [Abnormal uterine and vaginal bleeding, unspecified] Onset: 10-01-2017 Resolved: 02-10-2018 02-10-2018 Chronic Other nutritional; endocrine; and metabolic disorders (20 sources) Obese class II; Translations: [Obesity, unspecified] Onset: 03-01-2022 Resolved: 08-26-2024 03-01-2022 Chronic Polyhydramnios and other problems of amniotic cavity (20 sources) Premature rupture of membranes; Translations: [Premature rupture of membranes, unspecified as to length of time between rupture and onset of labor, unspecified weeks of gestation] Onset: 10-01-2017 Resolved: 02-10-2018 02-10-2018 Episodic Results Test Name Value Interpretation Reference Range Facility Absolute lymphocyte countOrd ered By: Irena Ambriz on 03-12-2025 Lymphocytes Auto (Unsp spec) [#/Vol] 1.76 10*3/uL 0.83-4.51 [facility] Absolute neutrophil countOrd ered By: Irena Ambriz on 03-12-2025 Neutrophils (Bld) [#/Vol] 4.8 10*3/uL 2.0-7.7 [facility] Anion gap in Serum or Plasma Ordered By: Irena Ambriz on 03-12-2025 Anion gap [Moles/Vol] 10 mmol/L 5-15 [facility] Automated lymphocyte count a s percentage of total leukocytesOrdered By: Irena Ambriz on 03-12-2025 Lymphocytes/100 WBC Auto (Unsp spec) 24.8 % 19-41 [facility] BUN/creatinine ratioOrdered By: Irena Ambriz on 03-12-2025 Urea nitrogen/Creatinine [Mass ratio] 12.4 mg/mg 10-20 [facility] Basophil percentageOrdered B y: Irena Ambriz on 03-12-2025 Basophils/100 WBC (Bld) 0.4 % 0-1 [facility] Bilirubin Test strip Ql (U)O rdered By: Irena Katina on 03-12-2025 Bilirubin Ql (U) Negative Negative [facility] Bilirubin, totalOrdered By: Irena Katina on 03-12-2025 Bilirubin [Mass/Vol] 0.48 mg/dL 0.00-1.30 [facility] Carbon dioxide, total [Moles /volume] in Central venous bloodOrdered By: Irenajosie Ambriz on 03-12-2025 CO2 [Moles/Vol] 19.6 mmol/L Low 21.0-32.0 [facility] Chloride assayOrdered By: Giovanni Ambriz on 03-12-2025 Chloride [Moles/Vol] 108 mmol/L 98-108 [facility] Eosinophil percentageOrdered By: Irena Katina on 03-12-2025 Eosinophils/100 WBC (Bld) 1.7 % 0-5 [facility] Erythrocyte distribution wid th ratioOrdered By: Irena Katina on 03-12-2025 Erythrocyte distribution width (RBC) [Ratio] 12.8 % 11.6-14.6 [facility] Erythrocyte distribution wid th standard deviationOrdered By: Irena Katina on 03-12-2025 Erythrocyte distribution width (RBC) [Ratio] 41.1 fl 35.1-43.9 [facility] Glomerular filtration rate ( GFR) estimation/1.73 sq m using serum, plasma, or whole bOrdered By: Irena Ambriz on 03-12-2025 GFR/1.73 sq M.predicted among non-blacks MDRD (S/P/Bld) [Vol rate/Area] 113 mL/min/{1.73_m2} >60 [facility] Comment on above: mL/min/1.73m2 CKD-EP I Creatinine Equation (2020) Hematocrit Auto (Bld) [Volum e fraction]Ordered By: Irena Ambriz on 03-12-2025 Hematocrit (Bld) [Volume fraction] 41.5 % 37-47 [facility] Hemoglobin measurementOrdere d By: Irena Ambriz on 03-12-2025 Hemoglobin (Bld) [Mass/Vol] 14.7 g/dL 12.0-15.0 [facility] Immature granulocytes/100 WB C Auto (Bld)Ordered By: Irena Ambriz on 03-12-2025 Immature granulocytes/100 WBC (Bld) 0.300 % 0.0-0.9 [facility] Comment on above: IG% - Immature Granu locytes (promyelocytes, myelocytes and metamyelocytes) > 1% indicates that a LEFT SHIFT is Present. Ketones Test strip Ql (U)Ord ered By: Irena Ambriz on 03-12-2025 Ketones Ql (U) 5 mg/dl High Negative [facility] Laboratory - Chemistry and C hemistry - challengeOrdered By: Irena Ambriz on 03-12-2025 AST [Catalytic activity/Vol] 15 U/L <32 [facility] Lipase measurementOrdered By : Irena Ambriz on 03-12-2025 Lipase [Catalytic activity/Vol] 40 U/L 13-75 [facility] Comment on above: Please note:LIPASE r evised reference range effective 22. New Lipase methodology. Expected to produce lower values than the previous assay method. NEW Reference Range: 13 - 75 U/L MCV (mean corpuscular volume ) determinationOrdered By: Irena Ambriz on 03-12-2025 MCV (RBC) [Entitic vol] 88.5 fL 81-99 [facility] Mean corpuscular hemoglobin (MCH) determinationOrdered By: Irena Ambriz on 03-12-2025 MCH (RBC) [Entitic mass] 31.3 pg 27.0-32.0 [facility] Mean corpuscular hemoglobin concentration (MCHC) determinationOrdered By: Irena Ambriz on 03-12-2025 MCHC (RBC) [Mass/Vol] 35.4 g/dL 32-36 [facility] Mean platelet volume determi nationOrdered By: Irena Ambriz on 03-12-2025 Platelet mean volume (Bld) [Entitic vol] 10.5 fL 6.2-12.0 [facility] Microscopic analysis of urin e for red blood cells (RBC)Ordered By: Irena Ambriz on 03-12-2025 Microscopic analysis of urine for red blood cells (RBC) 0 SEEN /hpf 0-5 [facility] Monocyte percentageOrdered B y: Irenajosie Ambriz on 03-12-2025 Monocytes/100 WBC (Bld) 5.3 % 0-10 [facility] Mucus LM Ql (Urine sed)Order ed By: Irena Ambriz on 03-12-2025 Mucus Ql (Urine sed) 1+ /hpf [facility] Neutrophil percentageOrdered By: Irena Ambriz on 03-12-2025 Neutrophils/100 WBC (Bld) 67.5 % 47-70 [facility] Nitrite Test strip Ql (U)Ord ered By: Irena Ambriz on 03-12-2025 Nitrite Ql (U) Negative Negative [facility] Nucleated red blood cell per centageOrdered By: Irenajosie Ambriz on 03-12-2025 Nucleated RBC/100 WBC (Bld) [Ratio] 0 % 0-5 [facility] Platelet countOrdered By: Giovanni Ambriz on 03-12-2025 Platelets (Bld) [#/Vol] 196 10*3/uL 150-450 [facility] Potassium measurement (mass/ volume)Ordered By: Irenajosie Ambriz on 03-12-2025 Potassium (Unsp spec) [Mass/Vol] 3.8 mmol/L 3.3-5.1 [facility] Protein Test strip Ql (U)Ord ered By: Irenajosie Ambriz on 03-12-2025 Protein Ql (U) 30 mg/dl High Negative [facility] RBC Auto (Bld) [#/Vol]Ordere d By: Irenajosie Ambriz on 03-12-2025 RBC (Bld) [#/Vol] 4.69 10*6/uL 4.2-5.4 [facility] Serum creatinine measurement (mass/volume)Ordered By: Irena Ambriz on 03-12-2025 Creatinine [Mass/Vol] 0.71 mg/dL 0.70-1.20 [facility] Serum globulin measurementOr dered By: Irena Ambriz on 03-12-2025 Globulin (S) [Mass/Vol] 2.7 g/dL 2.2-4.2 [facility] Serum glucose measurement (m ass/volume)Ordered By: Irena Ambriz on 03-12-2025 Glucose [Mass/Vol] 83 mg/dL 70-99 [facility] Serum or plasma alanine moyer otransferase (ALT) measurementOrdered By: Irena Ambriz on 03-12-2025 ALT [Catalytic activity/Vol] 9 U/L <35 [facility] Serum or plasma albumin gerardo urement (mass/volume)Ordered By: Irena Ambriz on 03-12-2025 Albumin [Mass/Vol] 4.4 g/dL 3.5-5.0 [facility] Serum or plasma albumin/glob ulin mass ratioOrdered By: Irena Ambriz on 03-12-2025 Albumin/Globulin [Mass ratio] 1.6 {ratio} 0.9-2.4 [facility] Serum or plasma alkaline fermin sphatase measurementOrdered By: Irena Ambriz on 03-12-2025 ALP [Catalytic activity/Vol] 77 U/L 35-104 [facility] Serum or plasma calcium gerardo urement (mass/volume)Ordered By: Irena Ambriz on 03-12-2025 Calcium [Mass/Vol] 9.0 mg/dL 7.6-11.0 [facility] Serum or plasma urea nitroge n measurement (mass/volume)Ordered By: Irena Ambriz on 03-12-2025 Urea nitrogen [Mass/Vol] 9 mg/dL 4-19 [facility] Sodium levelOrdered By: Brynn Ambriz on 03-12-2025 Sodium [Moles/Vol] 138 mmol/L 133-145 [facility] Squamous epithelial cells de tection in urine sediment by light microscopyOrdered By: Irena Ambriz on 03-12-2025 Epithelial cells.squamous LM Ql (Urine sed) 0-5 SEEN /hpf 5-10 [facility] Total proteinOrdered By: Dolores Ambriz on 03-12-2025 Protein [Mass/Vol] 7.1 g/dL 5.9-8.4 [facility] Urine clarityOrdered By: Dolores Ambriz on 03-12-2025 Clarity (U) Sl. Cloudy Clear [facility] Urine color determinationOrd ered By: Irena Ambriz on 03-12-2025 Color (U) Yellow Yellow [facility] Urine glucose detectionOrder ed By: Irena Ambriz on 03-12-2025 Glucose Ql (U) Normal mg/dl Normal [facility] Urine leukocyte esterase det ection by dipstickOrdered By: Irena Ambriz on 03-12-2025 Leukocyte esterase Test strip Ql (U) Negative Negative [facility] Urine pHOrdered By: Irena pelayo on 03-12-2025 pH (U) 6.0 [pH] 5.0 - 8.0 [facility] Urine testOrdered By: Irena Ambriz on 03-12-2025 HCG ( test) Ql (U) Negative [facility] Comment on above: Very dilute urine sp ecimens, as indicated by a low specificgravity, may not contain medical detail representative levels of hCG. If is still suspected, a first morning urinespecimen should be collected 48 hours later and tested. Urine sediment bacteria coun t by microscopy (number/high power field)Ordered By: Irena Ambriz on 03-12-2025 Bacteria LM.HPF (Urine sed) [#/Area] 1 /[HPF] None Seen [facility] Urine specific gravity measu rementOrdered By: Irena Ambriz on 03-12-2025 Specific gravity (U) [Rel density] 1.025 1.002-1.030 [facility] Urine urobilinogen measureme ntOrdered By: Irena Ambriz on 03-12-2025 Urobilinogen Ql (U) 1 mg/dl High Normal [facility] White blood cell (WBC) count Ordered By: Irena Ambriz on 03-12-2025 WBC (Bld) [#/Vol] 7.1 10*3/uL 4.4-11.0 [facility] White blood cell countOrdere d By: Irena Ambriz on 03-12-2025 White blood cell count 0 SEEN /hpf 0-5 [facility] Progress Noteon 02-26-2025 Progress Note Computer Publisher was offered to the patient for exam. Patient accepted, medical laboratory technician in room during exam Normal [facility] Progress Note Pati Bond 02/26/[birth year]25 39 y.o. Chief Complaint Patient presents with Procedure No LMP recorded. Primary CarePhysician: No primary care provider on file. HPI: Pati Bond is a 39 y.o. female presents for surgical consent. Pt has a longstanding hx of AUB. Bleeds through ultra tampon every hour on her cycle. Has tried multiple OCPs and Mirena IUD with minimal relief. Seeing hematology for anemia and chronic fatigue, was advised to discuss more definitive surgical intervention. Hx Cdx3, BTL and lap marilia. Has TVUS showing overall normal pelvic anatomy. OB History Para Term AB Living 4 4 3 1 0 3 SAB IAB Ectopic Multiple Live Births 0 3 # Outcome Date GA Lbr Jose L/2nd Weight Sex Type Anes PTL Lv 4 Term 06/23/19 F CS-Unspec BETY 3 10/06/17 M Vag-Spont Y FD Complications: Premature rupture of membranes 2 Term 03/17/11 39w0d 8 lb 13 oz (3.997 kg) F CS-Unspec Spinal N BETY 1 Term 01/29/06 41w0d 11 lb 1 oz (5.018 kg) M CS-Unspec Gen N BETY Medical History[1] Surgical History[2] Family History[3] Social History Socioeconomic History Marital status: Single Spouse name: Not on file Number of children: Not on file Years of education: Not on file Highest education level: Not on file Occupational History Not on file Tobacco Use Smoking status: Every Day Current packs/day: 1.00 Types: Cigarettes Smokeless tobacco: Never Vaping Use Vaping status: Never Used Substance and Sexual Activity Alcohol use: Never Drug use: Yes Types: Marijuana Comment: once a month Sexual activity: Not on file Other Topics Concern Not on file Social History Narrative Not on file Social Drivers of Health Financial Resource Strain: Low Risk (01/08/2025) Received from [facility] Overall Financial Resource Strain (CARDIA) Difficulty of Paying Living Expenses: Not hard at all Food Insecurity: No Food Insecurity (01/08/2025) Received from [facility] Hunger Vital Sign Worried About Running Out of Food in the Last Year: Never true Ran Out of Food in the Last Year: Never true Transportation Needs: No Transportation Needs (01/08/2025) Received from [facility] PRAPARE - Transportation Lack of Transportation (Medical): No Lack of Transportation (Non-Medical): No Physical Activity: Patient Declined (01/08/2025) Received from [facility] Exercise Vital Sign Days of Exercise per Week: Patient declined Minutes of Exercise per Session: Patient declined Recent Concern: Physical Activity - Inactive (12/25/2024) Exercise Vital Sign Days of Exercise per Week: 0 days Minutes of Exercise per Session: 0 min Stress: Stress Concern Present (01/08/2025) Received from [facility] [place] [facility] - Occupational Stress Questionnaire Feeling of Stress : To some extent Social Connections: Socially Isolated (01/08/2025) Received from [facility] Social Connection and Isolation Panel [NHANES] Frequency of Communication with Friends and Family: More than three times a week Frequency of Social Gatherings with Friends and Family: Once a week Attends Restorationism Services: Never Active Member of Clubs or Organizations: No Attends Club or Organization Meetings: Never Marital Status: Intimate Partner Violence: Unknown (12/24/2024) Humiliation, Afraid, Rape, and Kick questionnaire Fear of Current or Ex-Partner: Patient declined Emotionally Abused: Patient declined Physically Abused: No Sexually Abused: No Housing Stability: Unknown (01/08/2025) Received from [facility] Housing Stability Vital Sign Unable to Pay for Housing in the Last Year: No Number of Times Moved in the Last Year: Not on file Homeless in the Last Year: Not on file MEDICATIONS: Current Medications[4] ALLERGIES: Allergies as of 02/26/2025 (No Known Allergies) Review of Systems: Review of Systems All other systems reviewed and are negative. Physical Exam: BP 104/68 Wt 238 lb (108 kg) Physical Exam Vitals and nursing note reviewed. Constitutional: General: She is not in acute distress. Appearance: Normal appearance. She is obese. She is not toxic-appearing. HENT: Head: Normocephalic and atraumatic. Eyes: Extraocular Movements: Extraocular movements intact. Pulmonary: Effort: Pulmonary effort is normal. No respiratory distress. Abdominal: Palpations: Abdomen is soft. Tenderness: There is no abdominal tenderness. There is no guarding or rebound. Genitourinary: General: Normal vulva. Vagina: Normal. Cervix: Normal. Uterus: Normal. Adnexa: Right adnexa normal and left adnexa normal. Skin: General: Skin is warm and dry. Neurological: General: No focal deficit present. Mental Status: She is alert and oriented to person, place, and time. Psychiatric: Mood and Affect: Mood normal. Behavior: Behavior normal. Thought Content: Thought content normal. No r (more content not included)... Normal [facility] POLYSOMNOGRAM (PSG)/HOME SLE EP APNEA TEST (HSAT)on 02-05-2025 POLYSOMNOGRAM (PSG)/HOME SLEEP APNEA TEST (HSAT) [facility] at [address], [address], [place] [address] ; Home Sleep Apnea Test (HSAT) Study Report Name: PATI BOND Date of Study: 02/05/2025 CC#: [id number] Age: 39 (: 1985) ESS: Neck Circ. (cm): 41 Height (cm): 166 Weight (kg): 118 BMI: 42.7 Referring Provider: JOHN GILES Mailcode: Sleep history: The patient is a 39 year old female with a history of waking up with a dry mouth, breathing from your mouth during sleep, difficulty maintaining sleep. The patient endorses being a habitual stomach sleeper. The patient is here for assessment of obstructive sleep apnea. Pertinent medical history: Class III obesity, GERD Medications: Famotidine Sleep procedure: PSG unattended Type III, minimum of 4 parameters (88642) Procedure: This study was performed using a Type III ambulatory PSG device and was unattended. The patient was instructed on proper use of the device by a registered industrial engineering technologist. The monitored parameters included heart rate, oxygen saturation, continuous airflow with thermistor and nasal pressure transducer, snoring via nasal pressure transducer, chest and abdominal effort, and body position. TODD definition: Respiratory event index (TODD), calculated as respiratory events x 60 / TRT (total recording time in minutes). Note: the apnea hypopnea index has been replaced by the respiratory event index for home sleep apnea test. Since the home sleep apnea test does not measure sleep, the TODD is most accurate index of respiratory events. The TODD is a surrogate of the AHI per the AASM Manual for Scoring of Sleep and Associated Events version 3. Apnea definition: The peak signal excursions drop by >90% of pre-event baseline using an oronasal thermal sensor (diagnostic study), PAP device flow (titration study) or an alternative apnea sensor (diagnostic study). The duration of the >90% drop in signal excursion is >=10 seconds. Hypopnea definition: The peak signal excursions drop by >= 30% of pre-event baseline using nasal pressure (diagnostic study), PAP device flow (titration study) or an alternative hypopnea sensor (diagnostic study). The duration of the >= 30% drop in signal excursion is >=10 seconds. There is a greater than or equal to 3% oxygen desaturation from pre-event baseline. RESPIRATORY DATA: The study started at 20:36:02 and ended at 02:19:17 and the total recording time was 343 minutes. By convention, sleep is assumed for the whole recording. Snoring was noted. There was a total of 31 respiratory events. Of these events, the total number of apneas was 7 (7 obstructive, 0 mixed, and 0 central (0.0%)) and 24 hypopneas. The central apnea index (EL) was 0.0. The respiratory event index (TODD) was 5.4 events per hour of study time. The mean oxygen saturation during the study was 94.0%, with a minimum oxygen saturation of 87.0%. The patient spent 1.4 minutes at oxygen saturation measured less than 90% (0.4% of recording time) and 0.8 minutes at oxygen saturation measured at or less than 88% (0.2% of recording time). Time TODD/AHI Supine 1.0 min 0.0 Off-Supine 342.0 min 5.4 Total 343.0 min 5.4 ECG DATA: The average heart rate was 79 bpm with a range of 61 bpm to 102 bpm. ICSD DIAGNOSIS: Obstructive Sleep Apnea Syndrome [G47.33] IMPRESSION/RECOMMEND ATIONS: 1. This study confirms a diagnosis of at least mild obstructive sleep apnea. 2. The results of this study may represent an underestimation of the degree of obstructive sleep apnea, especially hypopneas, because of the known limitations of HSAT, such as inability to record arousals because EEG is not recorded. 3. Treatment of mild sleep apnea can include weight loss, positional therapy, treatment of allergies, oral appliance therapy or ENT evaluation of any airway abnormalities. PAP therapy may be considered in patients with documented symptoms of daytime sleepiness, impaired cognition, mood disorder, insomnia, or documented hypertension, ischemic heart disease, or history of stroke. INTERPRETING PHYSICIAN: Mini Pulido M.D. I attest that I have performed epoch by epoch review of the entire raw data and find this study to be technically adequate. Report Digitally Signed By: MINI PULIDO MD (02/12/2025 9:24:07 AM) Normal [facility] Progress Noteon 01-26-2025 Progress Note Patient was identified and seen today via Telehealth by agreement and consent. I used the following Telehealth technology: Audio and video capabilities. Patient location: Patient Location: Home. This patient encounter is appropriate and reasonable under the circumstances: schedule . The patient has been advised of the potential risks and limitations of this mode of treatment (including but not limited to the absence of in-person examination) and has agreed to be treated in a remote fashion in spite of them. Any and all of the patient's/patient's family's questions on this issue have been answered and I have made no promises or guarantees to the patient. The patient has also been advised to contact this office for worsening conditions or problems, and seek emergency medical treatment and/or call 911 if the patient deems either necessary. The patient stated that they are currently in the [facility]. If the patient is a minor, permission has been obtained by the parent or guardian for the patient to receive medical care at this visit. HPI: Pt being seen today for US follow up regarding AUB. Has had several years of very heavy MP, bleeding through ultra tampon every hour. Seeing hematology and advised to have MP checked as possible cause for anemia. Previosuly had Mirena, helped slow bleeding. Hx Cdx3 and BTL. Reviewed TVUS results showing overall normal pelvic anatomy. At this point patient is tired of medications and would like definitive surgical management. REVIEW OF SYSTEMS: Gen: denies weight loss, fatigue, fevers/chills : see HPI PHYSICAL EXAM: There were no vitals filed for this visit. Physical Exam Vitals and nursing note reviewed. Constitutional: General: She is not in acute distress. Appearance: Normal appearance. She is not toxic-appearing. HENT: Head: Normocephalic and atraumatic. Eyes: Extraocular Movements: Extraocular movements intact. Pulmonary: Effort: Pulmonary effort is normal. No respiratory distress. Neurological: General: No focal deficit present. Mental Status: She is alert and oriented to person, place, and time. Psychiatric: Mood and Affect: Mood normal. Diagnoses and all orders for this visit: Abnormal uterine bleeding (AUB) (Primary) - megestrol (Megace) 40 MG tablet; Take 1 tablet (40 mg total) by mouth daily. 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 PELVIS TRANSVAGINALon US PELVIS TRANSVAGINAL --- Gynecological Report (Signed Final 01/21/2025 10:09 am) PATIENT INFO: ID #: [id number] : [birth year] (39 yrs)(F) Name: PATI BOND Visit Date: 01/20/2025 02:40 pm PERFORMED BY: Attending: John Mcleod MD Performed By: Huma Richards RDMS Referred By: JOHN VIVAS Location: [facility] [employer] [place] Visit Type: [facility] [employer] WORK[employer] SERVICE(S) PROVIDED: Pmo Business Analyst Transvaginal [id number] INDICATIONS: Abnormal uterine and vaginal bleeding, N93.9 unspecified LMP 01/03/2025 TV CHOIR SINGER ultrasound TECHNIQUE/SCAN QUALITY: Technique: Transvaginal Approach COMPARISON: None HISTORY: Age: 39 LMP: 01/03/25 Day Of Cycle: 18 PREVIOUS PELVIC SURGERY: X 3 HX COMMENTS: Non latex cover used. UTERUS: Uterus: Heterogeneous Position: Anteverted Size (cm) L: 10.53 W: 6.52 H: 5.53 Description: There is a subserosal defect in the anterior wall of the lower uterine segment, most likely due to prior . ENDOMETRIUM: Endometrium: Normal Thickness(mm): 7.04 CERVIX: Multiple cervical cysts are noted. CUL-DE-SAC: A small amount of fluid was noted. RIGHT OVARY: Status: Normal Size (cm) L: 2.97 W: 2 H: 2.16 Vol (ml): 6.72 LEFT OVARY: Status: Normal Size (cm) L: 2.81 W: 1.74 H: 2.4 Vol (ml): 6.14 John Mcleod MD Electronically Signed Final Report 01/21/2025 10:09 am IMPRESSION: Normal appearing pelvic ultrasound. Endometrium is echogenic and uniform measuring 7.04mm. Small amount of free fluid seen within posterior cul de sac. No adenxal masses seen. Normal ovaries bilaterally. ORADS-1 Follow up as clinically indicated. Patient is scheduled to see Dr. Vivas following ultrasound 01/26/2025. *Ultrasound cannot detect all pelvic or CHOIR SINGER abnormalities and normal findings cannot guarantee the absence of a problem.* Normal [facility] 25(OH)D3 [facility] 2024 25-hydroxyvitamin D3 [Mass/Vol] 25.2 ng/mL Low 31.0-80.0 [facility] Comment on above: Order Comment: Speci men Type: BLOOD SPECIMENOrdering Facility: [facility] Address: [address] [place] [address] Result Comment: Clas sification of 25 OH Vitamin D status: Deficiency/Insufficiency: < or = 30 ng/ml. Sufficiency/Optimal Levels: 31-80 ng/mL Toxicity: > 100 ng/mL. Test performed by chemiluminescent immunoassay. Performed By: #### 1 [id number] ####[facility] LAB[facility]IA [id number] [place] [address] [place] CBC W Auto Differential pane l (Bld)on 01-09-2025 Basophils (Bld) [#/Vol] 0.04 10*3/uL Normal <0.11 [facility] Comment on above: Order Comment: Speci men Type: SWAB Ordering Facility: [facility] Address: [address] [place] [address] Performed By: #### B VAMP, CVTV #### [facility] CLIA [id number] [address] [place] [address] [place] Basophils/100 WBC (Bld) 0.7 % Normal C [facility] Comment on above: Order Comment: Speci men Type: SWAB Ordering Facility: [facility] Address: [address] [place] [address] Performed By: #### B VAMP, CVTV #### [facility] CLIA [id number] [address] [place] [address] [place] Differential cell count method Nom (Bld) Auto Normal [facility] Comment on above: Order Comment: Speci men Type: SWAB Ordering Facility: [facility] Address: [address] [place] [address] Performed By: #### B VAMP, CVTV #### [facility] CLIA [id number] [address] [place] [id number] [place] Eosinophils (Bld) [#/Vol] 0.07 10*3/uL Normal <0.46 [facility] Comment on above: Order Comment: Speci men Type: SWAB Ordering Facility: [facility] Address: [address] [place] [address] Performed By: #### B VAMP, CVTV #### [facility] CLIA [id number] [address] [place] [address] [place] Eosinophils/100 WBC (Bld) 1.2 % Normal [facility] Comment on above: Order Comment: Speci men Type: SWAB Ordering Facility: [facility] Address: [address] [place] [address] Performed By: #### B VAMP, CVTV #### [facility] CLIA [id number] [address] [place] [address] [place] Erythrocyte distribution width (RBC) [Ratio] 15.4 % High 11.5-15.0 [facility] Comment on above: Order Comment: Speci men Type: SWAB Ordering Facility: [facility] Address: [address] [place] [address] Performed By: #### B VAMP, CVTV #### [facility] CLIA [id number] [address] [place] [address] [place] Hematocrit (Bld) [Volume fraction] 41.3 % Normal 36.0-46.0 [facility] Comment on above: Order Comment: Speci men Type: SWAB Ordering Facility: [facility] Address: [address] [place] [address] Performed By: #### B VAMP, CVTV #### [facility] CLIA [id number] [address] [place] [address] [place] Hemoglobin (Bld) [Mass/Vol] 13.9 g/dL Normal 11.5-15.5 [facility] Comment on above: Order Comment: Speci men Type: SWAB Ordering Facility: [facility] Address: [address] [place] [address] Performed By: #### B VAMP, CVTV #### [facility] CLIA [id number] [address] [place] [address] [place] Immature granulocytes (Bld) [#/Vol] 10*3/uL Normal <0.10 [facility] Comment on above: Order Comment: Speci men Type: SWAB Ordering Facility: [facility] Address: [address] [place] [address] Performed By: #### B VAMP, CVTV #### [facility] CLIA [id number] [address] [place] [address] [place] Immature granulocytes/100 WBC (Bld) 0.2 % Normal [facility] Comment on above: Order Comment: Speci men Type: SWAB Ordering Facility: [facility] Address: [address] [place] [address] Performed By: #### B VAMP, CVTV #### [facility] CLIA [id number] [address] [place] [address] [place] Lymphocytes (Bld) [#/Vol] 1.82 10*3/uL Normal 1.00-4.00 [facility] Comment on above: Order Comment: Speci men Type: SWAB Ordering Facility: [facility] Address: [address] [place] [address] Performed By: #### B VAMP, CVTV #### [facility] CLIA [id number] [address] [place] [address] [place] Lymphocytes/100 WBC (Bld) 31.4 % Normal [facility] Comment on above: Order Comment: Speci men Type: SWAB Ordering Facility: [facility] Address: [address] [place] [address] Performed By: #### B VAMP, CVTV #### [facility] CLIA [id number] [address] [place] [address] [place] MCH (RBC) [Entitic mass] 30.2 pg Normal 26.0-34.0 [facility] Comment on above: Order Comment: Speci men Type: SWAB Ordering Facility: [facility] Address: [address] [place] [address] Performed By: #### B VAMP, CVTV #### [facility] CLIA [id number] [address] [place] [address] [place] MCHC (RBC) [Mass/Vol] 33.7 g/dL Normal 30.5-36.0 [facility] Comment on above: Order Comment: Speci men Type: SWAB Ordering Facility: [facility] Address: [address] [place] [address] Performed By: #### B VAMP, CVTV #### [facility] CLIA [id number] [address] [place] [address] [place] MCV (RBC) [Entitic vol] 89.6 fL Normal 80.0-100.0 C [facility] Comment on above: Order Comment: Speci men Type: SWAB Ordering Facility: [facility] Address: [address] [place] [address] Performed By: #### B VAMP, CVTV #### [facility] CLIA [id number] [address] [place] [address] [place] Monocytes (Bld) [#/Vol] 0.39 10*3/uL Normal <0.87 [facility] Comment on above: Order Comment: Speci men Type: SWAB Ordering Facility: [facility] Address: [address] [place] [address] Performed By: #### B VAMP, CVTV #### [facility] CLIA [id number] [address] [place] [address] [place] Monocytes/100 WBC (Bld) 6.7 % Normal C [facility] Comment on above: Order Comment: Speci men Type: SWAB Ordering Facility: [facility] Address: [address] [place] [address] Performed By: #### B VAMP, CVTV #### [facility] CLIA [id number] [address] [place] [address] [place] Neutrophils (Bld) [#/Vol] 3.47 10*3/uL Normal 1.45-7.50 [facility] Comment on above: Order Comment: Speci men Type: SWAB Ordering Facility: [facility] Address: [address] [place] [address] Performed By: #### B VAMP, CVTV #### [facility] CLIA [id number] [address] [place] [address] [place] Neutrophils/100 WBC (Bld) 59.8 % Normal [facility] Comment on above: Order Comment: Speci men Type: SWAB Ordering Facility: [facility] Address: [address] [place] [address] Performed By: #### B VAMP, CVTV #### [facility] CLIA [id number] [address] [place] [address] [place] Nucleated RBC (Bld) [#/Vol] 10*3/uL Normal <0.01 [facility] Comment on above: Order Comment: Speci men Type: SWAB Ordering Facility: [facility] Address: [address] [place] [address] Performed By: #### B VAMP, CVTV #### [facility] CLIA [id number] [address] [place] [address] [place] Nucleated RBC/100 WBC (Bld) [Ratio] 0.0 /100 WBC Normal [facility] Comment on above: Order Comment: Speci men Type: SWAB Ordering Facility: [facility] Address: [address] [place] [address] Performed By: #### B VAMP, CVTV #### [facility] CLIA [id number] [address] [place] [address] [place] Platelet mean volume (Bld) [Entitic vol] 11.2 fL Normal 9.0-12.7 [facility] Comment on above: Order Comment: Speci men Type: SWAB Ordering Facility: [facility] Address: [address] [place] [address] Performed By: #### B VAMP, CVTV #### [facility] CLIA [id number] [address] [place] [address] [place] Platelets (Bld) [#/Vol] 236 10*3/uL Normal 150-400 [facility] Comment on above: Order Comment: Speci men Type: SWAB Ordering Facility: [facility] Address: [address] [place] [address] Performed By: #### B VAMP, CVTV #### [facility] CLIA [id number] [address] [place] [address] [place] RBC (Bld) [#/Vol] 4.61 10*6/uL Normal 3.90-5.20 [facility] Comment on above: Order Comment: Speci men Type: SWAB Ordering Facility: [facility] Address: [address] [place] [address] Performed By: #### B VAMP, CVTV #### [facility] CLIA [id number] [address] [place] [address] [place] WBC (Bld) [#/Vol] 5.80 10*3/uL Normal 3.70-11.00 [facility] Comment on above: Order Comment: Speci men Type: SWAB Ordering Facility: [facility] Address: [address] [place] [address] Performed By: #### B VAMP, CVTV #### [facility] CLIA [id number] [address] [place] [address] [place] Comprehensive metabolic 2000 panelon 01-09-2025 Albumin [Mass/Vol] 4.4 g/dL Normal 3.9-4.9 [facility] Comment on above: Order Comment: Speci men Type: BLOOD SPECIMENOrdering Facility: [facility] Address: [address] [place] [address] Performed By: #### 2 276-4, 79174-7, 97116-4 ####[facility] [id number] [place] [id number] [place] ALP [Catalytic activity/Vol] 81 U/L Normal 34-123 [facility] Comment on above: Order Comment: Speci men Type: BLOOD SPECIMENOrdering Facility: [facility] Address: [address] [place] [address] Performed By: #### 2 276-4, 07429-1, 75086-6 ####[facility] [id number] [place] [address] [place] ALT [Catalytic activity/Vol] 13 U/L Normal 7-38 [facility] Comment on above: Order Comment: Speci men Type: BLOOD SPECIMENOrdering Facility: [facility] Address: [address] [place] [address] Performed By: #### 2 276-4, 58498-8, 53329-6 ####[facility] [id number] [place] [id number] [place] Anion gap [Moles/Vol] 14 mmol/L Normal 8-15 [facility] Comment on above: Order Comment: Speci men Type: BLOOD SPECIMENOrdering Facility: [facility] Address: [address] [place] [address] Performed By: #### 2 276-4, 46151-7, 10109-7 ####[facility]IA [id number] [address] [address] [place] AST [Catalytic activity/Vol] 15 U/L Normal 13-35 [facility] Comment on above: Order Comment: Speci men Type: BLOOD SPECIMENOrdering Facility: [facility] Address: [address] [place] [address] Performed By: #### 2 276-4, 53938-0, 52684-8 ####[facility] [id number] [address] [address] [place] Bilirubin [Mass/Vol] 0.4 mg/dL Normal 0.2-1.3 [facility] Comment on above: Order Comment: Speci men Type: BLOOD SPECIMENOrdering Facility: [facility] Address: [address] [place] [address] Performed By: #### 2 276-4, 86162-7, 07364-0 ####[facility]IA [id number] [place] [address] [place] Calcium [Mass/Vol] 9.2 mg/dL Normal 8.5-10.2 [facility] Comment on above: Order Comment: Speci men Type: BLOOD SPECIMENOrdering Facility: [facility] Address: [address] [place], [place] [address] Performed By: #### 2 276-4, 16918-4, 68462-7 ####[facility]IA [id number] [place] [address] [place] Chloride [Moles/Vol] 104 mmol/L Normal 98-107 [facility] Comment on above: Order Comment: Speci men Type: BLOOD SPECIMENOrdering Facility: [facility] Address: [address] [place], [place] [address] Performed By: #### 2 276-4, 07287-4, 23709-6 ####[facility] [id number] [place] [id number] [place] CO2 [Moles/Vol] 21 mmol/L Low 22-30 [facility] Comment on above: Order Comment: Speci men Type: BLOOD SPECIMENOrdering Facility: [facility] Address: [address] [place] [address] Performed By: #### 2 276-4, 30735-1, 56507-8 ####[facility]IA [id number] [address] [address] [place] Creatinine [Mass/Vol] 0.69 mg/dL Normal 0.58-0.96 [facility] Comment on above: Order Comment: Speci men Type: BLOOD SPECIMENOrdering Facility: [facility] Address: [address] [place] [address] Performed By: #### 2 276-4, 06088-1, 47227-2 ####[facility] [id number] [place] [address] [place] Creatinine and Glomerular filtration rate.predicted panel (S/P/Bld) 115 mL/min/1.73m??? Normal >=60 [facility] Comment on above: Order Comment: Speci men Type: BLOOD SPECIMENOrdering Facility: [facility] Address: [address] [place] [address] Result Comment: Monica mated Glomerular Filtration Rate (eGFR) is calculated using the 2020 CKD-EPI creatinine equation. This equation utilizes serum creatinine, sex, and age as parameters. The creatinine assay has traceable calibration to isotope dilution-mass spectrometry. Refer to KDIGO guidelines for clinical interpretation. In patients with unstable renal function, e.g. those with acute kidney injury, the eGFR may not accurately reflect actual GFR. Performed By: #### 2 276-4, 11264-4, 32010-1 ####[facility]IA [id number] [address] [address] [place] Glucose [Mass/Vol] 83 mg/dL Normal 74-99 [facility] Comment on above: Order Comment: Speci men Type: BLOOD SPECIMENOrdering Facility: [facility] Address: [address] [place] [address] Result Comment: The Canadian Diabetes Association (ADA) provides guidance for cutoff values for fasting glucose and random glucose. The ADA defines fasting as no caloric intake for at least 8 hours. Fasting plasma glucose results between 100 to 125 mg/dL indicate increased risk for diabetes (prediabetes). Fasting plasma glucose results greater than or equal to 126 mg/dL meet the criteria for diagnosis of diabetes. In the absence of unequivocal hyperglycemia, results should be confirmed by repeat testing. In a patient with classic symptoms of hyperglycemia or hyperglycemic crisis, random plasma glucose results greater than or equal to 200 mg/dL meet the criteria for diagnosis of diabetes. Reference: Standards of Medical Care in Diabetes 2016, Canadian Diabetes Association. Diabetes Care. 2016.39(Suppl 1). Performed By: #### 2 276-4, 22390-4, 00027-0 ####[facility]IA [id number] [place] [address] [place] Potassium [Moles/Vol] 4.4 mmol/L Normal 3.7-5.1 [facility] Comment on above: Order Comment: Speci men Type: BLOOD SPECIMENOrdering Facility: [facility] Address: [address] [place] [address] Performed By: #### 2 276-4, 16305-9, 83096-4 ####[facility]IA [id number] [place] [id number] [place] Protein [Mass/Vol] 6.8 g/dL Normal 6.3-8.0 [facility] Comment on above: Order Comment: Speci men Type: BLOOD SPECIMENOrdering Facility: [facility] Address: [address] [place], [place] [address] Performed By: #### 2 276-4, 19219-1, 34188-0 ####[facility]IA [id number] [place] [id number] [place] Sodium [Moles/Vol] 139 mmol/L Normal 136-144 [facility] Comment on above: Order Comment: Speci men Type: BLOOD SPECIMENOrdering Facility: [facility] Address: [address] [place], [place] [address] Performed By: #### 2 276-4, 10273-8, 34891-0 ####[facility]IA [id number] [address] [address] [place] Urea nitrogen [Mass/Vol] 7 mg/dL Normal 7-21 [facility] Comment on above: Order Comment: Speci men Type: BLOOD SPECIMENOrdering Facility: [facility] Address: [address] [place] [address] Performed By: #### 2 276-4, 04137-3, 75682-3 ####[facility]IA [id number] [place] [id number] [place] Ferritin SerPl-ncon 2024 Ferritin [Mass/Vol] 20.6 ng/mL Normal 14.7-205.1 [facility] Comment on above: Order Comment: Speci men Type: BLOOD SPECIMENOrdering Facility: [facility] Address: [address] [place] [address] Performed By: #### 2 276-4, 59011-5, 93982-2 ####[facility] [id number] [place] [id number] [place] Folate SerPl-mCncon 01-10-20 Folate [Mass/Vol] 14.7 ng/mL Normal >4.7 [facility] Comment on above: Order Comment: Speci men Type: BLOOD SPECIMENOrdering Facility: [facility] Address: [address] [place] [address] Performed By: #### 2 132-9, 2284-8 ####[facility] [id number] [place] [id number] [place] HbA1c (Bld)on 01-09-2025 Average glucose Estimated from glycated hemoglobin (Bld) [Mass/Vol] 100 mg/dL Normal [facility] Comment on above: Order Comment: Speci men Type: SWAB Ordering Facility: [facility] Address: [address] [place] [address] Result Comment: eAG: (Estimated average glucose) is a calculated value from HgbA1c and is medical detail representative of the average blood glucose level in the last 2-3 month period. Performed By: #### B KOTA CVTV #### [facility] CLIA [id number] [address] [place] [address] [place] HbA1c (Bld) [Mass fraction] 5.1 % Normal 4.3-5.6 [facility] Comment on above: Order Comment: Specnegrito men Type: SWAB Ordering Facility: [facility] Address: [address] [place] [address] Result Comment: Amer ican Diabetes Association guidelines indicate that patients with HgbA1c in the range 5.7-6.4% are at increased risk for development of diabetes, and intervention by lifestyle modification may be beneficial. HgbA1c greater or equal to 6.5% is considered diagnostic of diabetes. Performed By: #### B VAMP, CVTV #### [facility] CLIA [id number] [address] [place] [address] [place] Iron and Iron binding capaci ty panelon 01-09-2025 Iron [Mass/Vol] 61 ug/dL Normal 41-186 [facility] Comment on above: Order Comment: Faina stewart Type: BLOOD SPECIMENOrdering Facility: [facility] Address: [address] [place] [address] Performed By: #### 2 276-4, 91525-0, 10409-8 ####[facility] LABCLIA [id number] [place] [address] [place] Iron binding capacity [Mass/Vol] 308 ug/dL Normal 232-386 [facility] Comment on above: Order Comment: Faina stewart Type: BLOOD SPECIMENOrdering Facility: [facility] Address: [address] [place] [address] Performed By: #### 2 276-4, 41628-9, 89385-3 ####[facility]CLIA [id number] [place] [id number] Iron/TIBC [Molar ratio] 19.8 % Normal 15.0-57.0 C [facility] Comment on above: Order Comment: Speci men Type: BLOOD SPECIMENOrdering Facility: [facility] Address: [address] [place] [address] Performed By: #### 2 276-4, 62703-9, 18033-3 ####[facility] [id number] [address] [facility] Vit B12 [facility]Pl[facility] 025 Cobalamin (Vitamin B12) [Mass/Vol] 356 pg/mL Normal 232-1245 [facility] Comment on above: Order Comment: Spec men Type: BLOOD SPECIMENOrdering Facility: [facility] Address: [address] [place] [address] Performed By: #### 2 132-9, 2284-8 ####[facility]IA [id number] [address] [facility] Charisse 12-29-2024 ARPITN Telephone (GSTNOR) PATI MOHAMUD ([id number]) 1985 F Date Time Provider Department 12/29/24 BRADLY ROY GSTNOR During your visit today, we recorded the following information about you: Allergies As of Date: 12/29/2024 (No Known Allergies) Date Reviewed: 12/29/2024 Reviewed by: Bradly Roy, MASTER AUTOMOTIVE TECHNICIAN.CAKE PUNCHER - Fully Assessed Prescriptions as of 12/29/2024 - pantoprazole DR (PROTONIX) 40 mg tablet Take 1 tablet by mouth two times a day before meals. - famotidine (PEPCID) 20 mg tablet Take 2 tablets by mouth daily at bedtime. - cholecalciferol, Vitamin D3, (VITAMIN D3) 1,250 mcg (50,000 unit) cap capsule Take 1 capsule by mouth one time a week. - ferrous sulfate 325 mg (65 mg iron) tablet Take 1 tablet by mouth two times a day with meals. - naproxen (NAPROSYN) 500 mg tablet Take 500 mg by mouth two times a day with meals. - dupilumab (DUPIXENT PEN) 300 mg/2 mL pen injection Inject 300 mg subcutaneously every 2 weeks. Problem List As Of Date 12/29/2024 Noted Resolved Premature rupture of membranes [O42.90] 10/01/2017 02/10/2018 Vaginal bleeding [N93.9] 10/01/2017 02/10/2018 Adjustment disorder with mixed anxiety and depr*03/18/2018 Obesity, Class II, BMI 35-39.9 [E66.812] 03/01/2022 08/26/2024 Obesity, Class III, BMI >= 40 [E66.813] 04/07/2022 Iron deficiency anemia due to chronic blood los*08/01/2024 Vitamin D deficiency [E55.9] 08/26/2024 Gastroesophageal reflux disease [K21.9] 12/10/2024 Encounter Status:Closed by BRADLY ROY on 12/29/24 Normal [facility] Office Visiton 12-25-2024 Follow-up visit [id number] Pati Bond 1985 F Date Provider Department Center 12/25/2024 [id number] Off[place] No family history on file Level of Service:42477 [place] INITIAL PREVENTIVE MEDICINE NEW PT AGE 18-39YRS Reason for Visit and Comments: New Patient [542] Normal [facility] Progress Noteon 12-25-2024 Progress Note Computer Publisher was offered to the patient for exam. Patient declined offer of salesperson women's hats Normal [facility] Progress Note Pati Bond 12/25/2024 39 y.o. Chief Complaint Patient presents with New Patient Primary Care Physician: No primary care provider on file. HPI: Pati Bond is a 39 y.o. female here today for annual exam. This is a New patient patient. Has had several years of very heavy MP, bleeding through ultra tampon every hour. Seeing hematology and advised to have MP checked as possible cause for anemia. Previosuly had Mirena, helped slow bleeding. Hx Cdx3 and BTL. Patient's last menstrual period was 11/27/2024. Menses: regular. Flow heavy Intermenstrual bleeding: no Dysmenorrhea:moderat e, occurring first 1-2 days of flow Contraception: no method CHOIR SINGER Complaints: yes - see above Sexually Active: yes Dyspareunia: No STD History: no Pap smear: normal 3 years ago per pt Family History: Denies history of breast, colon, ovarian, uterine, prostate or pancreatic cancer. Medical History[1] Surgical History[2] Family History[3] OB History Para Term AB Living 4 4 3 1 0 3 SAB IAB Ectopic Multiple Live Births 0 3 # Outcome Date GA Lbr Jose L/2nd Weight Sex Type Anes PTL Lv 4 Term 06/23/19 F CS-Unspec BETY 3 10/06/17 M Vag-Spont Y FD Complications: Premature rupture of membranes 2 Term 03/17/11 39w0d 8 lb 13 oz (3.997 kg) F CS-Unspec Spinal N BETY 1 Term 01/29/06 41w0d 11 lb 1 oz (5.018 kg) M CS-Unspec Gen N BETY MEDICATIONS: Current Medications[4] ALLERGIES: Allergies as of 12/25/2024 (No Known Allergies) REVIEW OF SYSTEMS Review of Systems All other systems reviewed and are negative. PHYSICAL EXAMINATION: BP 131/85 Pulse 90 Wt 261 lb (118 kg) LMP 11/27/2024 Physical Exam Vitals and nursing note reviewed. Constitutional: General: She is not in acute distress. Appearance: Normal appearance. She is not toxic-appearing. HENT: Head: Normocephalic and atraumatic. Eyes: Extraocular Movements: Extraocular movements intact. Pulmonary: Effort: Pulmonary effort is normal. No respiratory distress. Chest: Breasts: Right: Normal. Left: Normal. Abdominal: Palpations: Abdomen is soft. Tenderness: There is no abdominal tenderness. There is no guarding or rebound. Genitourinary: General: Normal vulva. Vagina: Normal. Cervix: Normal. Uterus: Normal. Adnexa: Right adnexa normal and left adnexa normal. Skin: General: Skin is warm and dry. Neurological: General: No focal deficit present. Mental Status: She is alert and oriented to person, place, and time. Psychiatric: Mood and Affect: Mood normal. Behavior: Behavior normal. Thought Content: Thought content normal. ASSESSMENT: 39 y.o. Diagnosis Plan 1. Well woman exam with routine gynecological exam 2. Cervical cancer screening Pap Smear 3. Abnormal uterine bleeding (AUB) US pelvis transvaginal PLAN: - Will obtain TVUS for AUB and discuss results, possible IUD vs nexplanon following - Pap collected today - Counseled on breast self awareness. - Counseled to exercise at least 30min three times per week. Take a daily multivitamin or 1000 Units of Vit D. - control and barrier recommendations discussed. - STD counseling and prevention reviewed. - Gardisil counseling completed for all patients 9-45 yo. - Routine health maintenance per patients PCP. Follow up in about 4 weeks (around 01/22/2025) for US follow up. Orders Placed This Encounter Procedures US pelvis transvaginal Standing Status: Future Expected Date: 12/25/2024 Expiration Date: 12/25/2025 [1] Past Medical History: Diagnosis Date Acute anemia [2] Past Surgical History: Procedure Laterality Date CHOLECYSTECTOMY DELIVERY (HISTORICAL) X3 DENTAL SURGERY RECTAL SURGERY 2nd surgery RECTAL VAGINAL FISTULECTOMY TONSILLECTOMY [3] No family history on file. [4] Current Outpatient Medications Medication Sig Dispense Refill ergocalciferol (Vitamin D-2) 1.25 MG (09259 UT) capsule Take 1.25 mg by mouth 1 (one) time per week. No current facility-administere d medications for this visit. [facility] ANES POSTPROC EVALon 025 ANES POSTPROC EVAL HNO ID: [id number] Author: RENITA VINCENT MD Service: Anesthesiology Author Type: Anesthesiologist Type: Anesthesia Postprocedure Evaluation Filed: 12/10/2024 15:04 Note Text: POST ANESTHESIA EVALUATION NOTE : 1985 Procedure Summary Date: 12/10/24 Room / Location: [facility] Endoscopy Anesthesia Start: 1443 Anesthesia Stop: 1456 Procedure: EGD DIAGNOSTIC Diagnosis: (Established gastro-esophageal reflux disease) Scheduled Providers: Eyad Cartwright MD; Renita Vincent MD; Harley Arce APRN.SCHEDULING CLERK Responsible Provider: Renita Vincent MD Anesthesia Type: MAC ASA Status: 2 Anesthesia Type: MAC Last Vitals Vitals Value Taken Time BP 103/56 12/10/24 1500 Temp 36.5 ?C (97.7 ?F) 12/10/24 1459 Pulse 73 12/10/24 1502 Resp 18 12/10/24 1459 SpO2 97 % 12/10/24 1502 Vitals shown include unfiled device data. Post Anesthesia Patient Status Patient Evaluation: PACU. PACU/ICU Patient Condition: stable. Anticipated Disposition: phase 2 then home. Neurological Status: sleepy but arousable. Pulmonary Status: breathing comfortably on supplemental oxygen Airway Control: returned to baseline unsupported. Cardiovascular Status: stable. Pain Management: clinically adequate - multimodal analgesia pain management approach Postoperative Hydration: acceptable. Intraoperative Events: no significant anesthesia events Post Operative Nausea/Vomiting Status: no significant post operative nausea or vomiting Recommendation: continue current plan of care. Anesthesia Observations No Documentation SIGNATURE: Reinta Vincent MD PATIENT NAME: Pati Mohamud DATE: December 10, 2024 TIME: 3:04 PM CSN: [id number] Normal [facility] ANES PRE-OPon 12-10-2024 ANES PRE-OP HNO ID: [id number] Author: RENITA VINCENT MD Service: Anesthesiology Author Type: Anesthesiologist Type: Anesthesia Preprocedure Evaluation Filed: 12/10/2024 13:58 Note Text: ANESTHESIOLOGY DAY OF SURGERY NOTE : 1985 Procedure Information Date/Time: 12/10/24 1615 Scheduled providers: Eyad Cartwright MD; Renita Vincent MD; Harley Arce APRN.SCHEDULING CLERK Procedure: EGD DIAGNOSTIC Location: [facility] Endoscopy Estimated body mass index is 42.85 kg/m? as calculated from the following: Height as of 11/26/24: 166.4 cm (5' 5.5). Weight as of an earlier encounter on 12/10/24: 118.6 kg (261 lb 7.5 oz). Most recent hematocrit and potassium results: Hematocrit 38.3 10/11/2024 Potassium 4.5 08/02/2024 Relevant Problems No relevant active problems I - PHYSICAL EVALUATION AIRWAY Patient intubated: No. Tracheostomy tube not present Mallampati: II. TM distance: >3 FB. Neck ROM: full ROM without neurological symptoms. Mouth opening: adequate. Short neck: no. Thick neck: no DENTAL Dental findings: teeth intact. Additional exam findings: yes. CARDIOVASCULAR Rhythm: regular Rate: normal PULMONARY Breath sounds clear to auscultation. ABDOMINAL Obese: obesity present. II - ANESTHESIA PLAN ASA Score: 2 Anesthetic Plan: MAC The patient is a current smoker. NPO Status: adequate Beta Ani Monitoring Plan Monitoring plan: standard ASA. Post Procedure Analgesic Plan Postoperative analgesic plan: multimodal analgesia. Informed Consent Anesthetic risks, benefits, alternatives, personnel and consent discussed: yes. Patient / Responsible Democrat agrees to proceed: yes Patient / Surrogate agrees to blood products: blood products not planned DNR status not reviewed with patient and/or family prior to surgery. Significant changes in the patient condition since the History and Physical, not otherwise documented in primary service progress note: no. Potential Anesthesia issues that may suggest increased risk of complications or contraindication to planned procedure: none. No vitals data found for the desired time range. Outpatient Medications as of 12/10/2024 Medication Sig famotidine (PEPCID) 20 mg tablet Take 2 tablets by mouth daily at bedtime. omeprazole (PRILOSEC) 40 mg capsule Take 1 capsule by mouth once daily. cholecalciferol, Vitamin D3, (VITAMIN D3) 1,250 mcg (50,000 unit) cap capsule Take 1 capsule by mouth one time a week. ferrous sulfate 325 mg (65 mg iron) tablet Take 1 tablet by mouth two times a day with meals. (Patient not taking: Reported on 11/26/2024) naproxen (NAPROSYN) 500 mg tablet Take 500 mg by mouth two times a day with meals. dupilumab (DUPIXENT PEN) 300 mg/2 mL pen injection Inject 300 mg subcutaneously every 2 weeks. (Patient not taking: Reported on 11/26/2024) Facility-Administere d Medications as of 12/10/2024 Medication Dose Route Frequency lidocaine (PF) 10 mg/mL (1 %) 1-2 mg injection (XYLOCAINE) 0.1-0.2 mL INTRADERMAL PRN lactated ringers iv infusion 30 mL/hr INTRAVENOUS CONTINUOUS I have interviewed and examined the patient. I have reviewed the medical record and/or the pre-anesthesia evaluation, pertinent labs, and test results. This contains updated information obtained within 48 hours of Surgery/Procedure. SIGNATURE: Renita Vincent MD PATIENT NAME: Pati Mohamud DATE: December 10, 2024 TIME: 1:58 PM CSN: [id number] Normal [facility] EGD Study observation Narrkatharina alanis 12-10-2024 [facility] Gastrointestinal Endoscopy Patient Name: Pati Mohamud Procedure Date: 12/10/2024 2:36 PM Date of : 1985 Admit Type: Outpatient Age: 39 Room: [facility] Gender: Female Note Status: Finalized Attending MD: Eyad Cartwright MD, [id number] Procedure: Upper GI endoscopy Indications: Gastro-esophageal reflux disease Providers: Eyad Cartwright MD Patient Profile: This is a 39 year old female. Refer to note in patient chart for documentation of history and physical. Referring Physician: Daniel Hardin (Referring MD) Medicines: See the Anesthesia note for documentation of the administered medications Complications: No immediate complications. Estimated blood loss: Minimal. Requesting Provider: Procedure: Pre-Anesthesia Assessment: - Prior to the procedure, a History and Physical was performed, and patient medications and allergies were reviewed. The patient's tolerance of previous anesthesia was also reviewed. The risks and benefits of the procedure and the sedation options and risks were discussed with the patient. All questions were answered, and informed consent was obtained. Prior Anticoagulants: The patient has taken no anticoagulant or antiplatelet agents. ASA Grade Assessment: III - A patient with severe systemic disease. After reviewing the risks and benefits, the patient was deemed in satisfactory condition to undergo the procedure. After obtaining informed consent, the endoscope was passed under direct vision. Throughout the procedure, the patient's blood pressure, pulse, and oxygen saturations were monitored continuously. The Endoscope was introduced through the mouth, and advanced to the second part of duodenum. The upper GI endoscopy was accomplished without difficulty. The patient tolerated the procedure well. Moderate Sedation: The following parameters were monitored: oxygen saturation, heart rate, blood pressure, respiratory rate, EKG, adequacy of pulmonary ventilation, and response to care. MAC anesthesia was administered by the anesthesia team. Total Procedure Duration: 0 hours 3 minutes 53 seconds Findings: The Z-line was regular and was found 40 cm from the incisors. Biopsies were taken with a cold forceps for histology. Patchy mild inflammation characterized by erythema was found in the prepyloric region of the stomach. Biopsies were taken with a cold forceps for Helicobacter pylori testing. The examined duodenum was normal. Biopsies for histology were taken with a cold forceps for evaluation of celiac disease. Impression: - Z-line regular, 40 cm from the incisors. Biopsied. - Gastritis, characterized by erythema. Biopsied. - Normal examined duodenum. Biopsied. Recommendation: - Patient has a contact number available for emergencies. The signs and symptoms of potential delayed complications were discussed with the patient. Return to normal activities tomorrow. Written discharge instructions were provided to the patient. - Resume previous diet. - Continue present medications. - Await pathology results. - Repeat upper endoscopy PRN for surveillance. - Return to referring provider at appointment to be scheduled. Procedure Code(s): --- Professional --- 48232, Esophagogastroduoden oscopy, flexible, transoral; with biopsy, single or multiple Diagnosis Code(s): --- Professional --- K29.70, Gastritis, unspecified, without bleeding K21.9, Gastro-esophageal reflux disease without esophagitis CPT copyright 2020 [employer]. All rights reserved. The codes documented in this report are preliminary and upon head stock transfer clerk review may be revised to meet current compliance requirements. Attending Participation: I personally performed the entire procedure. Scope In: 2:49:29 PM Scope Out: 2:53: (more content not included)... PROVATION [facility] Radiology Study observation (narrative) [facility] jose a [facility] HISTORY PHYSICALon HISTORY PHYSICAL HNO ID: [id number] Author: EYAD CARTWRIGHT MD Service: General Surgery Author Type: Physician Type: H&P Filed: 12/10/2024 14:45 Note Text: CHIEF COMPLAINT: Patient presents with: GERD: Hiatal Hernia This consult was requested by No ref. provider found for an opinion regarding GERD. My final recommendations will be communicated to the requesting health care provider by way of the shared medical record for internal providers or letter via the [place] Postal Service for external providers. Recording using Brain[employer] software for draft documentation of the visit was discussed with the patient/authorized medical detail representative; all questions welcomed and answered. Patient/authorized medical detail representative agreed to proceed HPI: Pati Mohamud is a 38 year old female with hx of GERD, hiatal hernia, hx cholecystectomy who presenting for evaluation of worsening acid reflux and hiatal hernia symptoms. Patient reports a long-standing history of acid reflux, spanning over 5-10 years. She was previously diagnosed with a hiatal hernia following an upper endoscopy performed in 2012. Initially, her symptoms were intermittent, occurring once or twice a week, but over the past year, she has experienced daily episodes of acid reflux and hiatal hernia symptoms. Despite being on a regimen of omeprazole and famotidine, she continues to experience acid reflux, describing it as a gagging, kind of like acid sensation. She also reports episodes of esophageal spasms, characterized by a feeling of tightness and difficulty breathing for a few minutes, which she attributes to her hiatal hernia. These symptoms have been present since her initial diagnosis and have progressively worsened. She denies dysphagia, nausea, emesis, hematochezia, or melena. Patient reports nocturnal symptoms of reflux and heartburn, despite eating dinner early around 16:00-16:30. She uses Tums approximately 3-4 times a week, mostly at night, for symptom relief. She also reports a decreased appetite and early satiety, stating, My appetite sucks. She often skips breakfast and sometimes dinner, depending on her hunger levels. Patient consumes a significant amount of caffeine, including six shots of espresso for breakfast and a can of soda daily. She also uses ibuprofen daily or every other day for chronic pain, which she attributes to a possible diagnosis of fibromyalgia or stress. She reports generalized body pain, including her knees and legs, stating, my body's always hurting, my knees, my legs, like, just everything. Patient has a history of anemia, which she attributes to heavy menstrual periods. She reports using ultra-absorbency tampons and experiencing overflow within an hour. She has an upcoming appointment with a serger to address this issue. Past Diagnostic Results: - Upper Endoscopy (2012): Diagnosed with hiatal hernia. - Cholecystectomy: Performed within the last 10 years, after the 2013 endoscopy. Record Review: [facility] / Outside records reviewed. PAST MEDICAL HISTORY PAST MEDICAL HISTORY Diagnosis Date Anemia GERD (gastroesophageal reflux disease) Hiatal hernia Morbid obesity (HCC) PAST SURGICAL HISTORY PAST SURGICAL HISTORY Procedure Laterality Date 48 HOUR PH STUDY 06/11/2013 mild acid reflux disease ANESTH, SECTION 2005, 2010twice CHOLECYSTECTOMY COLONOSCOPY 11/25/2012 normal EGD 10/08/2012 Schatzki's ringt, hiatal hernia, 2 small benign gastric polyps EMS PROCEDURE 06/11/2013 low LES pressures with normal relaxation response to a wet swallow with normal esophageal body motility HIATAL HERNIA REPAIR HX ORAL SURGERY PROCEDURE REMOVAL OF ANAL FISSURE 04/07/2022 Allergies: ALLERGIES ALLERGIES No Known Allergies Medications: CURRENT MEDICATIONS famotidine (PEPCID) 20 mg tablet Take 2 tablets by mouth daily at bedtime. omeprazole (PRILOSEC) 40 mg capsule Take 1 capsule by mouth once daily. cholecalciferol, Vitamin D3, (VITAMIN D3) 1,250 mcg (50,000 unit) cap capsule Take 1 capsule by mouth one time a week. naproxen (NAPROSYN) 500 mg tablet Take 500 mg by mouth two times a day with meals. ferrous sulfate 325 mg (65 mg iron) tablet Take 1 tablet by mouth two times a day with meals. (Patient not taking: Reported on 11/26/2024) dupilumab (DUPIXENT PEN) 300 mg/2 mL pen injection Inject 300 mg subcutaneously every 2 weeks. (Patient not taking: Reported on 11/26/2024) FAMILY HISTORY FAMILY HISTORY Family history unknown: Yes OCCUPATION AND MARITAL STATUS Employer And Job Title: None on file Years Of Education Completed: Not specified Marital Status: SOCIAL HISTORY Social History Tobacco Use Smoking status: Every Day Current packs/day: 0.00 Types: Cigarettes Last attempt to quit: 05/2017 Years since quittin.5 Smokeless tobacco: Never Vaping Use Vaping status: Never Used Substance Use Topics Alcohol use: No Drug use: No (more content not included)... [facility] Pathology biopsy report Dandy (Tiss)on 12-10-2024 AP DISCLAIMER [facility] Comment on above: Order Comment: Speci men Type: TISSUE SPECIMEN Ordering Facility: [facility] Address: [address] [place] [address] Result Comment: Ciarra sheridan Developed Test (LDT) Disclaimer: Performance characteristics of immunohistochemical, immunofluorescent, and chromogenic in-situ hybridization tests have been determined by the performing laboratory within [facility]'s [facility] Pathology and Laboratory Medicine Department ([facility], [facility], [facility], [facility], [facility], [facility], or [facility]) in a manner consistent with CLIA requirements. One or more of these tests may not have been cleared or approved by the FDA. [facility] is regulated under CLIA as qualified to perform high-complexity testing. These tests are used for clinical purposes. These should not be regarded as investigational or for research. Positive and negative controls stain appropriately. Performed By: #### 6 6121-5 #### [facility] CLIA [id number] [address] [place] [address] LAB CLIA [id number] [address] [place] [address] [place] CASE REPORT Normal [facility] Comment on above: Order Comment: Specnegrito stewart Type: TISSUE SPECIMEN Ordering Facility: [facility] Address: [address] [place] [address] Result Comment: Surg [facility] Pathology Report Case: [id number] Authorizing Provider: Eyad Cartwright MD Collected: 12/10/2024 02:50 PM Ordering Location: [facility] Endoscopy Received: 12/10/2024 03:38 PM Pathologist: Roe Person MD Specimens: A) - Small Bowel, Duodenum, Biopsy B) - Stomach, Biopsy, hp C) - Esophagus, Distal, Biopsy D) - Esophagus, Mid, Biopsy Performed By: #### 6 6121-5 #### [facility] CLIA [id number] [address] [place] [address] [place] [facility] CLIA [id number] [address] [place] [address] [place] DIAGNOSIS COMMENT Normal [facility] Comment on above: Order Comment: Faina stewart Type: TISSUE SPECIMEN Ordering Facility: [facility] Address: [address] [place] [address] Result Comment: B. N o Helicobacter pylori organisms are identified. C, D. Histologic changes of eosinophilic esophagitis are not identified. Performed By: #### 6 6121-5 #### [facility] CLIA [id number] [address] [place] [address] OF [facility] LAB CLIA [id number] [address] [place] [address] FINAL DIAGNOSIS [facility] Comment on above: Order Comment: Speci men Type: TISSUE SPECIMEN Ordering Facility: [facility] Address: [address] [place] [address] Result Comment: A. D uodenum, biopsy: - Small bowel mucosa with no diagnostic abnormality. B. Stomach, biopsy: - Gastric oxyntic-type mucosa with no diagnostic abnormality. C. Distal esophagus, biopsy: - Squamous mucosa with reactive/hyperplastic changes suggestive of gastroesophageal reflux. D. Mid esophagus, biopsy: - Squamous mucosa with no diagnostic abnormality. JEL 12/11/2024 at 1054 EDT Performed By: #### 6 6121-5 #### [facility] CLIA [id number] [address] [place] [address] OF [facility] LAB CLIA [id number] [address] [place] [address] OF [facility] FINAL PERFORMING LAB Normal [facility] Comment on above: Order Comment: Speci men Type: TISSUE SPECIMEN Ordering Facility: [facility] Address: [address] [place] [address] Result Comment: Diag nostic interpretation performed at: [facility], [address] [place] [address] CLIA# [id number] Metal Bonder: Fan Carter MD Performed By: #### 6 6121-5 #### [facility] CLIA [id number] [address] [place] [address] OF [facility] LAB CLIA [id number] [address] [place] [address] OF [place] GROSS DESCRIPTION [facility] Comment on above: Order Comment: Speci men Type: TISSUE SPECIMEN Ordering Facility: [facility] Address: [address] [place] [address] Result Comment: A. S mall Bowel, Duodenum, Biopsy Received in formalin are two pieces of stoddard-brown, soft tissue aggregating to 0.4 x 0.3 x 0.2 cm. Totally submitted in one cassette. B. Stomach, Biopsy Received in formalin is one piece of stoddard-brown, soft tissue measuring 0.3 x 0.3 x 0.2 cm. Totally submitted in one cassette. C. Esophagus, Distal, Biopsy Received in formalin are two pieces of stoddard-brown, soft tissue aggregating to 1 x 0.3 x 0.1 cm. Totally submitted in one cassette. D. Esophagus, Mid, Biopsy Received in formalin is one piece of stoddard-brown, soft tissue measuring 0.3 x 0.2 x 0.1 cm. Totally submitted in one cassette. [facility] December 10, 2024 7:24 PM Gross examination performed at [facility], [address] [place] [address] Performed By: #### 6 6121-5 #### [facility] CLIA [id number] [address] [place] [address] OF [facility] CLIA [id number] [address] [place] [address] OF [place] Upper GI endoscopy 05-28-2 025 Upper GI endoscopy [facility] Gastrointestinal Endoscopy Patient Name: Pati Mohamud Procedure Date: 12/10/2024 2:36 PM Date of : 1985 Admit Type: Outpatient Age: 39 Room: [facility] Gender: Female Note Status: Finalized Attending MD: Eyad Cartwright MD, [id number] Procedure: Upper GI endoscopy Indications: Gastro-esophageal reflux disease Providers: Eyad Cartwright MD Patient Profile: This is a 39 year old female. Refer to note in patient chart for documentation of history and physical. Referring Physician: Daniel Hardin (Referring MD) Medicines: See the Anesthesia note for documentation of the administered medications Complications: No immediate complications. Estimated blood loss: Minimal. Requesting Provider: Procedure: Pre-Anesthesia Assessment: - Prior to the procedure, a History and Physical was performed, and patient medications and allergies were reviewed. The patient's tolerance of previous anesthesia was also reviewed. The risks and benefits of the procedure and the sedation options and risks were discussed with the patient. All questions were answered, and informed consent was obtained. Prior Anticoagulants: The patient has taken no anticoagulant or antiplatelet agents. ASA Grade Assessment: III - A patient with severe systemic disease. After reviewing the risks and benefits, the patient was deemed in satisfactory condition to undergo the procedure. After obtaining informed consent, the endoscope was passed under direct vision. Throughout the procedure, the patient's blood pressure, pulse, and oxygen saturations were monitored continuously. The Endoscope was introduced through the mouth, and advanced to the second part of duodenum. The upper GI endoscopy was accomplished without difficulty. The patient tolerated the procedure well. Moderate Sedation: The following parameters were monitored: oxygen saturation, heart rate, blood pressure, respiratory rate, EKG, adequacy of pulmonary ventilation, and response to care. MAC anesthesia was administered by the anesthesia team. Total Procedure Duration: 0 hours 3 minutes 53 seconds Findings: The Z-line was regular and was found 40 cm from the incisors. Biopsies were taken with a cold forceps for histology. Patchy mild inflammation characterized by erythema was found in the prepyloric region of the stomach. Biopsies were taken with a cold forceps for Helicobacter pylori testing. The examined duodenum was normal. Biopsies for histology were taken with a cold forceps for evaluation of celiac disease. Impression: - Z-line regular, 40 cm from the incisors. Biopsied. - Gastritis, characterized by erythema. Biopsied. - Normal examined duodenum. Biopsied. Recommendation: - Patient has a contact number available for emergencies. The signs and symptoms of potential delayed complications were discussed with the patient. Return to normal activities tomorrow. Written discharge instructions were provided to the patient. - Resume previous diet. - Continue present medications. - Await pathology results. - Repeat upper endoscopy PRN for surveillance. - Return to referring provider at appointment to be scheduled. Procedure Code(s): --- Professional --- 16617, Esophagogastroduoden oscopy, flexible, transoral; with biopsy, single or multiple Diagnosis Code(s): --- Professional --- K29.70, Gastritis, unspecified, without bleeding K21.9, Gastro-esophageal reflux disease without esophagitis CPT copyright 2020 [employer]. All rights reserved. The codes documented in this report are preliminary and upon head stock transfer clerk review may be revised to meet current compliance requirements. Attending Participation: I personally performed the entire procedure. Scope In: 2:49:29 PM Scope Out: 2:53:22 PM MD Eyad Rueda MD 12/10/2024 2:56:32 PM This report has been signed electronically by Eyad Cartwright MD Number of Addenda: 0 Note Initiated On: 12/10/2024 2:36 PM Estimated Blood Loss: Estimated blood loss was minimal. Normal [facility] CNOVon 11-26-2024 CNOV Office Visit ([facility]) PATI MOHAMUD ([id number]) 1985 F Date Time Provider Department 11/26/24 2:15 PM BRADLY ROY [facility] During your visit today, we recorded the following information about you: Temperature Blood pressure Weight Height 98.6 degrees 134/84 118.6 kg 1.664 m Bradly Roy, [facility] 11/26/2024 3:24 PM Signed CHIEF COMPLAINT: Patient presents with: GERD: Hiatal Hernia This consult was requested by No ref. provider found for an opinion regarding GERD. My final recommendations will be communicated to the requesting health care provider by way of the shared medical record for internal providers or letter via the [employer] for external providers. Recording using [employer] software for draft documentation of the visit was discussed with the patient/authorized medical detail representative; all questions welcomed and answered. Patient/authorized medical detail representative agreed to proceed HPI: Pati Mohamud is a 38 year old female with hx of GERD, hiatal hernia, hx cholecystectomy who presenting for evaluation of worsening acid reflux and hiatal hernia symptoms. Patient reports a long-standing history of acid reflux, spanning over 5-10 years. She was previously diagnosed with a hiatal hernia following an upper endoscopy performed in 2012. Initially, her symptoms were intermittent, occurring once or twice a week, but over the past year, she has experienced daily episodes of acid reflux and hiatal hernia symptoms. Despite being on a regimen of omeprazole and famotidine, she continues to experience acid reflux, describing it as a gagging, kind of like acid sensation. She also reports episodes of esophageal spasms, characterized by a feeling of tightness and difficulty breathing for a few minutes, which she attributes to her hiatal hernia. These symptoms have been present since her initial diagnosis and have progressively worsened. She denies dysphagia, nausea, emesis, hematochezia, or melena. Patient reports nocturnal symptoms of reflux and heartburn, despite eating dinner early around 16:00-16:30. She uses Tums approximately 3-4 times a week, mostly at night, for symptom relief. She also reports a decreased appetite and early satiety, stating, My appetite sucks. She often skips breakfast and sometimes dinner, depending on her hunger levels. Patient consumes a significant amount of caffeine, including six shots of espresso for breakfast and a can of soda daily. She also uses ibuprofen daily or every other day for chronic pain, which she attributes to a possible diagnosis of fibromyalgia or stress. She reports generalized body pain, including her knees and legs, stating, my body's always hurting, my knees, my legs, like, just everything. Patient has a history of anemia, which she attributes to heavy menstrual periods. She reports using ultra-absorbency tampons and experiencing overflow within an hour. She has an upcoming appointment with a serger to address this issue. Past Diagnostic Results: - Upper Endoscopy (2012): Diagnosed with hiatal hernia. - Cholecystectomy: Performed within the last 10 years, after the 2013 endoscopy. Record Review: [facility] / Outside records reviewed. PAST MEDICAL HISTORY Diagnosis Date Anemia GERD (gastroesophageal reflux disease) Hiatal hernia Morbid obesity (HCC) PAST SURGICAL HISTORY Procedure Laterality Date 48 HOUR PH STUDY 06/11/2013 mild acid reflux disease ANESTH, SECTION 2005, 2010twice CHOLECYSTECTOMY COLONOSCOPY 11/25/2012 normal EGD 10/08/2012 Schatzki's ringt, hiatal hernia, 2 small benign gastric polyps EMS PROCEDURE 06/11/2013 low LES pressures with normal relaxation response to a wet swallow with normal esophageal body motility HIATAL HERNIA REPAIR HX ORAL SURGERY PROCEDURE REMOVAL OF ANAL FISSURE 04/07/2022 Allergies: ALLERGIES No Known Allergies Medications: famotidine (PEPCID) 20 mg tablet Take 2 tablets by mouth daily at bedtime. omeprazole (PRILOSEC) 40 mg capsule Take 1 capsule by mouth once daily. cholecalciferol, Vitamin D3, (VITAMIN D3) 1,250 mcg (50,000 unit) cap capsule Take 1 capsule by mouth one time a week. naproxen (NAPROSYN) 500 mg tablet Take 500 mg by mouth two times a day with meals. ferrous sulfate 325 mg (65 mg iron) tablet Take 1 tablet by mouth two times a day with meals. (Patient not taking: Reported on 11/26/2024) dupilumab (DUPIXENT PEN) 300 mg/2 mL pen injection Inject 300 mg subcutaneously every 2 weeks. (Patient not taking: Reported on 11/26/2024) FAMILY HISTORY Family history unknown: Yes Employer And Job Title: None on file Years Of Education Completed: Not specified Marital Status: Social History Tobacco Use Smoking status: Every Day Current packs/day: 0.00 Types: Cigarettes Last attempt to quit: 05/2017 Years since quitt (more content not included)... Normal [facility] Charisse 10-15-2024 MARBELLA Telephone (KAMILAH) PATI MOHAMUD ([id number]) 1985 F Date Time Provider Department 10/15/24 TYRON ABDULLAHI During your visit today, we recorded the following information about you: Gail Braxton 10/15/2024 10:14 AM Signed Patient called to schedule Iron treatments in [place]. [facility]. Please review and advise. Gail Braxton 10/15/2024 12:07 PM Signed Scheduled with patient Start email sent Allergies As of Date: 10/15/2024 (No Known Allergies) Date Reviewed: 08/26/2024 Reviewed by: John Giles APRN.CAKE PUNCHER - Fully Assessed Reason for Visit: Appointment [186] Prescriptions as of 10/15/2024 - famotidine (PEPCID) 20 mg tablet Take 2 tablets by mouth daily at bedtime. - omeprazole (PRILOSEC) 40 mg capsule Take 1 capsule by mouth once daily. - cholecalciferol, Vitamin D3, (VITAMIN D3) 1,250 mcg (50,000 unit) cap capsule Take 1 capsule by mouth one time a week. - ferrous sulfate 325 mg (65 mg iron) tablet Take 1 tablet by mouth two times a day with meals. - naproxen (NAPROSYN) 500 mg tablet Take 500 mg by mouth two times a day with meals. - dupilumab (DUPIXENT PEN) 300 mg/2 mL pen injection Inject 300 mg subcutaneously every 2 weeks. Problem List As Of Date 10/15/2024 Noted Resolved Premature rupture of membranes [O42.90] 10/01/2017 02/10/2018 Vaginal bleeding [N93.9] 10/01/2017 02/10/2018 Adjustment disorder with mixed anxiety and depr*03/18/2018 Obesity, Class II, BMI 35-39.9 [E66.812] 03/01/2022 08/26/2024 Obesity, Class III, BMI >= 40 [E66.01] 04/07/2022 Iron deficiency anemia due to chronic blood los*08/01/2024 Vitamin D deficiency [E55.9] 08/26/2024 Encounter Status:Closed by GAIL BRAXTON on 10/15/24 Normal [facility] CBC W Auto Differential pane l (Bld)on 10-11-2024 Basophils (Bld) [#/Vol] 0.03 10*3/uL Normal <0.11 [facility] Comment on above: Order Comment: Speci men Type: BLOOD SPECIMENOrdering Facility: [facility] Address: [address] [place] [address] Performed By: #### 5 7021-8 ####[facility] LABCLIA [id number] [place] [address] [place] Basophils/100 WBC (Bld) 0.5 % Normal [facility] Comment on above: Order Comment: Speci men Type: BLOOD SPECIMENOrdering Facility: [facility] Address: [address] [place] [address] Performed By: #### 5 7021-8 ####[facility] LABCLIA [id number] [place] [address] [place] Differential cell count method Nom (Bld) Auto Normal [facility] Comment on above: Order Comment: Speci men Type: BLOOD SPECIMENOrdering Facility: [facility] Address: [address] [place] [address] Performed By: #### 5 7021-8 ####[facility] LABCLIA [id number] [place] [address] [place] Eosinophils (Bld) [#/Vol] 0.13 10*3/uL Normal <0.46 [facility] Comment on above: Order Comment: Speci men Type: BLOOD SPECIMENOrdering Facility: [facility] Address: [address] [place] [address] Performed By: #### 5 7021-8 ####[facility] LABCLIA [id number] [place] [address] [place] Eosinophils/100 WBC (Bld) 2.3 % Normal [facility] Comment on above: Order Comment: Speci men Type: BLOOD SPECIMENOrdering Facility: [facility] Address: [address] [place] [address] Performed By: #### 5 7021-8 ####[facility] LABCLIA [id number] [place] [address] [place] Erythrocyte distribution width (RBC) [Ratio] 20.8 % High 11.5-15.0 [facility] Comment on above: Order Comment: Speci men Type: BLOOD SPECIMENOrdering Facility: [facility] Address: [address] [place] [address] Performed By: #### 5 7021-8 ####[facility] LABCLIA [id number] [place] [id number] [place] Hematocrit (Bld) [Volume fraction] 38.3 % Normal 36.0-46.0 [facility] Comment on above: Order Comment: Speci men Type: BLOOD SPECIMENOrdering Facility: [facility] Address: [address] [place] [address] Performed By: #### 5 7021-8 ####[facility] LABCLIA [id number] [place] [address] [place] Hemoglobin (Bld) [Mass/Vol] 12.0 g/dL Normal 11.5-15.5 [facility] Comment on above: Order Comment: Speci men Type: BLOOD SPECIMENOrdering Facility: [facility] Address: [address] [place] [address] Performed By: #### 5 7021-8 ####[facility] LABCLIA [id number] [place] [address] [place] Immature granulocytes (Bld) [#/Vol] 10*3/uL Normal <0.10 [facility] Comment on above: Order Comment: Speci men Type: BLOOD SPECIMENOrdering Facility: [facility] Address: [address] [place] [address] Performed By: #### 5 7021-8 ####[facility] LABIA [id number] [place] [address] [place] Immature granulocytes/100 WBC (Bld) 0.2 % Normal [facility] Comment on above: Order Comment: Speci men Type: BLOOD SPECIMENOrdering Facility: [facility] Address: [address] [place] [address] Performed By: #### 5 7021-8 ####[facility] LABCLIA [id number] [place] [address] [place] Lymphocytes (Bld) [#/Vol] 1.70 10*3/uL Normal 1.00-4.00 [facility] Comment on above: Order Comment: Speci men Type: BLOOD SPECIMENOrdering Facility: [facility] Address: [address] [place] [address] Performed By: #### 5 7021-8 ####[facility] LABCLIA [id number] [place] [address] [place] Lymphocytes/100 WBC (Bld) 30.6 % Normal [facility] Comment on above: Order Comment: Speci men Type: BLOOD SPECIMENOrdering Facility: [facility] Address: [address] [place] [address] Performed By: #### 5 7021-8 ####[facility] LABCLIA [id number] [place] [address] [place] MCH (RBC) [Entitic mass] 26.2 pg Normal 26.0-34.0 [facility] Comment on above: Order Comment: Speci men Type: BLOOD SPECIMENOrdering Facility: [facility] Address: [address] [place] [address] Performed By: #### 5 7021-8 ####[facility] LABCLIA [id number] [place] [address] [place] MCHC (RBC) [Mass/Vol] 31.3 g/dL Normal 30.5-36.0 [facility] Comment on above: Order Comment: Speci men Type: BLOOD SPECIMENOrdering Facility: [facility] Address: [address] [place] [address] Performed By: #### 5 7021-8 ####[facility] LABCLIA [id number] [place] [id number] [place] MCV (RBC) [Entitic vol] 83.6 fL Normal 80.0-100.0 C [facility] Comment on above: Order Comment: Speci men Type: BLOOD SPECIMENOrdering Facility: [facility] Address: [address] [place] [address] Performed By: #### 5 7021-8 ####[facility] LABCLIA [id number] [facility] [address] [address] [place] Monocytes (Bld) [#/Vol] 0.48 10*3/uL Normal <0.87 [facility] Comment on above: Order Comment: Speci men Type: BLOOD SPECIMENOrdering Facility: [facility] Address: [address] [place] [address] Performed By: #### 5 7021-8 ####[facility] LABCLIA [id number] [facility] [address], [facility] [place] Monocytes/100 WBC (Bld) 8.6 % Normal [facility] Comment on above: Order Comment: Speci men Type: BLOOD SPECIMENOrdering Facility: [facility] Address: [address] [place] [address] Performed By: #### 5 7021-8 ####[facility] LABCLIA [id number] [place] [address] [place] Neutrophils (Bld) [#/Vol] 3.20 10*3/uL Normal 1.45-7.50 [facility] Comment on above: Order Comment: Speci men Type: BLOOD SPECIMENOrdering Facility: [facility] Address: [address] [place] [address] Performed By: #### 5 7021-8 ####[facility] LABCLIA [id number] [place] [id number] [place] Neutrophils/100 WBC (Bld) 57.8 % Normal [facility] Comment on above: Order Comment: Speci men Type: BLOOD SPECIMENOrdering Facility: [facility] Address: [address] [place] [address] Performed By: #### 5 7021-8 ####[facility] LABCLIA [id number] [facility] [address] [address] [place] Nucleated RBC (Bld) [#/Vol] 10*3/uL Normal <0.01 [facility] Comment on above: Order Comment: Speci men Type: BLOOD SPECIMENOrdering Facility: [facility] Address: [address] [place] [address] Performed By: #### 5 7021-8 ####[facility] LABIA [id number] [place] [address] [place] Nucleated RBC/100 WBC (Bld) [Ratio] 0.0 /100 WBC Normal [facility] Comment on above: Order Comment: Speci men Type: BLOOD SPECIMENOrdering Facility: [facility] Address: [address] [place] [address] Performed By: #### 5 7021-8 ####[facility] LABIA [id number] [place] [address] [place] Platelet mean volume (Bld) [Entitic vol] 10.7 fL Normal 9.0-12.7 [facility] Comment on above: Order Comment: Speci men Type: BLOOD SPECIMENOrdering Facility: [facility] Address: [address] [place] [address] Performed By: #### 5 7021-8 ####[facility] LABIA [id number] [place] [address] [place] Platelets (Bld) [#/Vol] 246 10*3/uL Normal 150-400 [facility] Comment on above: Order Comment: Speci men Type: BLOOD SPECIMENOrdering Facility: [facility] Address: [address] [place] [address] Performed By: #### 5 7021-8 ####[facility] LABIA [id number] [place] [address] [place] RBC (Bld) [#/Vol] 4.58 10*6/uL Normal 3.90-5.20 [facility] Comment on above: Order Comment: Speci men Type: BLOOD SPECIMENOrdering Facility: [facility] Address: [address] [place] [address] Performed By: #### 5 7021-8 ####[facility] LABCLIA [id number] [place] [address] [place] WBC (Bld) [#/Vol] 5.55 10*3/uL Normal 3.70-11.00 [facility] Comment on above: Order Comment: Speci men Type: BLOOD SPECIMENOrdering Facility: [facility] Address: [address] [place] [address] Performed By: #### 5 7021-8 ####[facility] LABCLIA [id number] [place] [address] [place] Ferritin [facility] 2024 Ferritin [Mass/Vol] 13.8 ng/mL Low 14.7-205.1 [facility] Comment on above: Order Comment: Speci men Type: BLOOD SPECIMENOrdering Facility: [facility] Address: [address] [place] [address] Performed By: #### 2 276-4, 18141-5 ####[facility] LABIA [id number] [place] [address] [place] Iron and Iron binding capaci panel 10-11-2024 Iron [Mass/Vol] 28 ug/dL Low 41-186 [facility] Comment on above: Order Comment: Speci men Type: BLOOD SPECIMENOrdering Facility: [facility] Address: [address] [place] [address] Performed By: #### 2 276-4, 05934-6 ####[facility] [id number] [place] [id number] [place] Iron binding capacity [Mass/Vol] 320 ug/dL Normal 232-386 [facility] Comment on above: Order Comment: Speci men Type: BLOOD SPECIMENOrdering Facility: [facility] Address: [address] [place] [address] Performed By: #### 2 276-4, 77497-2 ####[facility] LABCLIA [id number] [place] [id number] [place] Iron/TIBC [Molar ratio] 8.8 % Low 15.0-57.0 C [facility] Comment on above: Order Comment: Speci men Type: BLOOD SPECIMENOrdering Facility: [facility] Address: [address] [place] [address] Performed By: #### 2 276-4, 89675-7 ####[facility] LABIA [id number] [place] [id number] [place] CNOVon 08-26-2024 CNOV Office Visit (FPWAJAYJAY) PATI MOHAMUD ([id number]) 1985 F Date Time Provider Department 08/26/24 2:20 PM JOHN GILES During your visit today, we recorded the following information about you: Pulse Blood pressure Weight Last Period 83/minute 121/84 119 kg 08/13/24 John Giles APRN.CAKE PUNCHER 08/26/2024 2:59 PM Signed This note was created using Ichibariter. Subjective Pati Mohamud is a 38 year old female. Patient here with complaint of bilateral heel pain x 3 months, left worse than right. Also has pain on sides of feet. Does stand on her feet a lot. No erythema/edema. Would start mid afternoon when she was getting off work, now hurts right when she gets up in the morning and steps on it. Nothing makes it feel better. No numbness/tingling. Wears comfortable shoes with support. No history of similar problems. Tried foot massager that doesn't help. GERD: still symptomatic, taking famotidine 40 mg BID. Has GI appointment in mid September. Started iron infusions, just had her 4th one, due for repeat labs in mid October. Still feeling tired. Continues to have heavy menstrual bleeding. Regular cycles, last about 5 days, heavy bleeding, not particularly painful. Declines flu and pneumonia vaccines today. The history is provided by the patient. Review of Systems Respiratory: Negative for shortness of breath. Cardiovascular: Negative for chest pain. Gastrointestinal: Positive for abdominal pain. Musculoskeletal: Positive for arthralgias and myalgias. Negative for joint swelling. Objective BP 121/84 Pulse 83 Wt 119 kg (262 lb 5.6 oz) LMP 08/13/2024 (Approximate) BMI 42.36 kg/m? Physical Exam Vitals and nursing note reviewed. Constitutional: Appearance: She is well-developed. She is obese. She is not ill-appearing. Cardiovascular: Pulses: Dorsalis pedis pulses are 2+ on the right side and 2+ on the left side. Posterior tibial pulses are 2+ on the right side and 2+ on the left side. Pulmonary: Effort: Pulmonary effort is normal. Musculoskeletal: Right ankle: Right Achilles Tendon: Normal. Left ankle: Left Achilles Tendon: Normal. Right foot: Normal range of motion. Tenderness present. No swelling or bony tenderness. Left foot: Normal range of motion. Tenderness present. No swelling or bony tenderness. Feet: Feet: Right foot: Skin integrity: Skin integrity normal. Left foot: Skin integrity: Skin integrity normal. Comments: Mild tenderness in this distribution Skin: General: Skin is warm and dry. Neurological: Mental Status: She is alert and oriented to person, place, and time. Gait: Gait normal. Psychiatric: Mood and Affect: Mood normal. Assessment and Plan 1. Foot pain, bilateral (Primary) Likely plantar fasciitis, recommend x-rays, supportive care, and follow-up with podiatry. - XR FOOT GENERAL 3V AP/LAT/OBL BILATERAL; Future - CONSULT TO PODIATRY; Future 2. Menorrhagia with regular cycle Encouraged to see CHOIR SINGER. - CONSULT TO GYNECOLOGY; Future 3. Gastroesophageal reflux disease without esophagitis Start omeprazole 40 mg in the am on an empty stomach and 40 mg of famotidine at bedtime. Keep GI appointment as scheduled. - famotidine (PEPCID) 20 mg tablet; Take 2 tablets by mouth daily at bedtime. - omeprazole (PRILOSEC) 40 mg capsule; Take 1 capsule by mouth once daily. Dispense: 30 capsule; Refill: 2 John Chan, MASTER AUTOMOTIVE TECHNICIAN.CAKE PUNCHER Allergies As of Date: 08/26/2024 (No Known Allergies) Date Reviewed: 08/26/2024 Reviewed by: John Giles APRN.CAKE PUNCHER - Fully Assessed Reason for Visit: Heel Pain [1025] Cmt: Left worse then right. X 3 months Primary Visit Diagnosis:Foot pain, bilateral [M79.671, M79.672] Other Visit Diagnoses:Menorrhagi a with regular cycle [N92.0] Gastroesophageal reflux disease without esophagitis [K21.9] Order(s):famotidine (PEPCID) 20 mg tabletTake 2 tablets by mouth daily at bedtime.Disp: Rfl: omeprazole (PRILOSEC) 40 mg capsuleTake 1 capsule by mouth once daily.Disp: 30 capsuleRfl: 2 CONSULT TO GYNECOLOGY [9086] Order #: [id number]: 1 FUTURE XR FOOT GENERAL 3V AP/LAT/OBL BILATERAL [[id number]] Order #: [id number] FUTURE CONSULT TO PODIATRY [9034] Order #: [id number]: 1 FUTURE Prescriptions as of 08/26/2024 - famotidine (PEPCID) 20 mg tablet Take 2 tablets by mouth daily at bedtime. - omeprazole (PRILOSEC) 40 mg capsule Take 1 capsule by mouth once daily. - cholecalciferol, Vitamin D3, (VITAMIN D3) 1,250 mcg (50,000 unit) cap capsule Take 1 capsule by mouth one time a week. - ferrous sulfate 325 mg (65 mg iron) tablet Take 1 tablet by mouth two times a day with meals. - naproxen (NAPROSYN) 500 mg tablet Take 500 mg by mouth two times a day with meals. - dupilumab (DUPIXENT PEN) 300 mg/2 mL pen injection Inject 300 mg subcutaneously every 2 weeks. Problem List As Of Date 08/26/2024 Noted Resolve (more content not included)... Normal [facility] ARPITNon [facility] CADEPATI Hernandez ([id number]) 1985 F Date Time Provider Department 08/08/24 HILL MENDOZA During your visit today, we recorded the following information about you: Adrianna Amezquita 08/08/2024 4:27 PM Signed Patient is requesting to do her Iron Sucrose in [place]. Ref Hill Mendoza Please Advise Magui Ward 08/11/2024 3:54 PM Signed Patient has been scheduled to start iron on 08/13/24 @ 9:30 am, patient confirmed this date, time and location Magui Mckeon Allergies As of Date: 08/08/2024 (No Known Allergies) Date Reviewed: 07/17/2024 Reviewed by: John Giles APRN.CAKE PUNCHER - Fully Assessed Reason for Visit: Appointment [186] Prescriptions as of 08/11/2024 - cholecalciferol, Vitamin D3, (VITAMIN D3) 1,250 mcg (50,000 unit) cap capsule Take 1 capsule by mouth one time a week. - ferrous sulfate 325 mg (65 mg iron) tablet Take 1 tablet by mouth two times a day with meals. - penicillin V potassium 500 mg tablet Take 500 mg by mouth four times daily. - naproxen (NAPROSYN) 500 mg tablet Take 500 mg by mouth two times a day with meals. - Omeprazole 20 mg TbEC Take 1 tablet by mouth two times a day. - dupilumab (DUPIXENT PEN) 300 mg/2 mL pen injection Inject 300 mg subcutaneously every 2 weeks. - LORazepam (ATIVAN) 0.5 mg Take 1 mg by mouth once daily as needed. Problem List As Of Date 08/08/2024 Noted Resolved Premature rupture of membranes [O42.90] 10/01/2017 02/10/2018 Vaginal bleeding [N93.9] 10/01/2017 02/10/2018 Adjustment disorder with mixed anxiety and depr*03/18/2018 Obesity, Class II, BMI 35-39.9 [E66.812] 03/01/2022 Obesity, Class III, BMI >= 40 [E66.01] 04/07/2022 Iron deficiency anemia due to chronic blood los*08/01/2024 Encounter Status:Closed by MAGUI BASS on 08/11/24 Normal [facility] CBC W Auto Differential pane l (Bld)on 08-02-2024 Basophils (Bld) [#/Vol] 10*3/uL Normal <0.11 C [facility] Comment on above: Order Comment: Speci men Type: BLOOD SPECIMENOrdering Facility: [facility] Address: [address] [place] [address] Performed By: #### 5 7021-8, 04831-7 ####[facility] LABCLIA [id number] [place] [address] [place] Basophils/100 WBC (Bld) 0.4 % Normal C [facility] Comment on above: Order Comment: Speci men Type: BLOOD SPECIMENOrdering Facility: [facility] Address: [address] [place] [address] Performed By: #### 5 7021-8, 71434-9 ####[facility] LABCLIA [id number] [place] [address] [place] Differential cell count method Nom (Bld) Auto Normal [facility] Comment on above: Order Comment: Speci men Type: BLOOD SPECIMENOrdering Facility: [facility] Address: [address] [place] [address] Performed By: #### 5 7021-8, 04039-8 ####[facility] LABCLIA [id number] [place] [address] [place] Eosinophils (Bld) [#/Vol] 0.08 10*3/uL Normal <0.46 [facility] Comment on above: Order Comment: Speci men Type: BLOOD SPECIMENOrdering Facility: [facility] Address: [address] [place] [address] Performed By: #### 5 7021-8, 32043-5 ####[facility] LABCLIA [id number] [place] [address] [place] Eosinophils/100 WBC (Bld) 1.7 % Normal [facility] Comment on above: Order Comment: Speci men Type: BLOOD SPECIMENOrdering Facility: [facility] Address: [address] [place] [address] Performed By: #### 5 7021-8, 20032-6 ####[facility] LABCLIA [id number] [place] [address] [place] Erythrocyte distribution width (RBC) [Ratio] 18.8 % High 11.5-15.0 [facility] Comment on above: Order Comment: Speci men Type: BLOOD SPECIMENOrdering Facility: [facility] Address: [address] [place] [address] Performed By: #### 5 7021-8, 22812-4 ####[facility] LABCLIA [id number] [place] [address] [place] Hematocrit (Bld) [Volume fraction] 34.0 % Low 36.0-46.0 [facility] Comment on above: Order Comment: Speci men Type: BLOOD SPECIMENOrdering Facility: [facility] Address: [address] [place] [address] Performed By: #### 5 7021-8, 94205-9 ####[facility] LABCLIA [id number] [place] [address] [place] Hemoglobin (Bld) [Mass/Vol] 9.8 g/dL Low 11.5-15.5 [facility] Comment on above: Order Comment: Speci men Type: BLOOD SPECIMENOrdering Facility: [facility] Address: [address] [place] [address] Performed By: #### 5 7021-8, 02915-5 ####[facility] LABCLIA [id number] [place] [address] [place] Immature granulocytes (Bld) [#/Vol] 10*3/uL Normal <0.10 [facility] Comment on above: Order Comment: Speci men Type: BLOOD SPECIMENOrdering Facility: [facility] Address: [address] [place] [address] Performed By: #### 5 7021-8, 40015-3 ####[facility] LABCLIA [id number] [place] [address] [place] Immature granulocytes/100 WBC (Bld) 0.2 % Normal [facility] Comment on above: Order Comment: Speci men Type: BLOOD SPECIMENOrdering Facility: [facility] Address: [address] [place] [address] Performed By: #### 5 7021-8, 75879-1 ####[facility] LABCLIA [id number] [place] [address] [place] Lymphocytes (Bld) [#/Vol] 1.51 10*3/uL Normal 1.00-4.00 [facility] Comment on above: Order Comment: Speci men Type: BLOOD SPECIMENOrdering Facility: [facility] Address: [address] [place] [address] Performed By: #### 5 7021-8, 61501-8 ####[facility] LABCLIA [id number] [place] [address] [place] Lymphocytes/100 WBC (Bld) 32.6 % Normal [facility] Comment on above: Order Comment: Speci men Type: BLOOD SPECIMENOrdering Facility: [facility] Address: [address] [place] [address] Performed By: #### 5 7021-8, 21627-1 ####[facility] LABCLIA [id number] [place] [address] [place] MCH (RBC) [Entitic mass] 21.6 pg Low 26.0-34.0 [facility] Comment on above: Order Comment: Speci men Type: BLOOD SPECIMENOrdering Facility: [facility] Address: [address] [place] [address] Performed By: #### 5 7021-8, 74037-9 ####[facility] LABIA [id number] [place] [address] [place] MCHC (RBC) [Mass/Vol] 28.8 g/dL Low 30.5-36.0 [facility] Comment on above: Order Comment: Speci men Type: BLOOD SPECIMENOrdering Facility: [facility] Address: [address] [place] [address] Performed By: #### 5 7021-8, 40810-1 ####[facility] [id number] [place] [address] [place] MCV (RBC) [Entitic vol] 74.9 fL Low 80.0-100.0 C [facility] Comment on above: Order Comment: Speci men Type: BLOOD SPECIMENOrdering Facility: [facility] Address: [address] [place] [address] Performed By: #### 5 7021-8, 92096-6 ####[facility] [id number] [place] [address] [place] Monocytes (Bld) [#/Vol] 0.37 10*3/uL Normal <0.87 [facility] Comment on above: Order Comment: Speci men Type: BLOOD SPECIMENOrdering Facility: [facility] Address: [address] [place] [address] Performed By: #### 5 7021-8, 86841-7 ####[facility] LABIA [id number] [place] [address] [place] Monocytes/100 WBC (Bld) 8.0 % Normal C [facility] Comment on above: Order Comment: Speci men Type: BLOOD SPECIMENOrdering Facility: [facility] Address: [address] [place] [address] Performed By: #### 5 7021-8, 94402-0 ####[facility] LABCLIA [id number] [place] [address] [place] Neutrophils (Bld) [#/Vol] 2.64 10*3/uL Normal 1.45-7.50 [facility] Comment on above: Order Comment: Speci men Type: BLOOD SPECIMENOrdering Facility: [facility] Address: [address] [place] [address] Performed By: #### 5 7021-8, 41453-8 ####[facility] LABCLIA [id number] [place] [address] [place] Neutrophils/100 WBC (Bld) 57.1 % Normal [facility] Comment on above: Order Comment: Speci men Type: BLOOD SPECIMENOrdering Facility: [facility] Address: [address] [place] [address] Performed By: #### 5 7021-8, 34680-1 ####[facility] LABIA [id number] [place] [address] [place] Nucleated RBC (Bld) [#/Vol] 10*3/uL Normal <0.01 [facility] Comment on above: Order Comment: Speci men Type: BLOOD SPECIMENOrdering Facility: [facility] Address: [address] [place] [address] Performed By: #### 5 7021-8, 69608-3 ####[facility] LABIA [id number] [place] [address] [place] Nucleated RBC/100 WBC (Bld) [Ratio] 0.0 /100 WBC Normal [facility] Comment on above: Order Comment: Speci men Type: BLOOD SPECIMENOrdering Facility: [facility] Address: [address] [place] [address] Performed By: #### 5 7021-8, 20768-1 ####[facility] LABIA [id number] [place] [address] [place] Platelet mean volume (Bld) [Entitic vol] 10.7 fL Normal 9.0-12.7 [facility] Comment on above: Order Comment: Speci men Type: BLOOD SPECIMENOrdering Facility: [facility] Address: [address] [place] [address] Performed By: #### 5 7021-8, 34052-0 ####[facility] LABCLIA [id number] [place] [address] [place] Platelets (Bld) [#/Vol] 296 10*3/uL Normal 150-400 [facility] Comment on above: Order Comment: Speci men Type: BLOOD SPECIMENOrdering Facility: [facility] Address: [address] [place] [address] Performed By: #### 5 7021-8, 48951-0 ####[facility] LABCLIA [id number] [place] [address] [place] RBC (Bld) [#/Vol] 4.54 10*6/uL Normal 3.90-5.20 [facility] Comment on above: Order Comment: Speci men Type: BLOOD SPECIMENOrdering Facility: [facility] Address: [address] [place] [address] Performed By: #### 5 7021-8, 08770-7 ####[facility] LABCLIA [id number] [place] [address] [place] WBC (Bld) [#/Vol] 4.63 10*3/uL Normal 3.70-11.00 [facility] Comment on above: Order Comment: Speci men Type: BLOOD SPECIMENOrdering Facility: [facility] Address: [address] [place] [address] Performed By: #### 5 7021-8, 81122-4 ####[facility] LABCLIA [id number] [place] [id number] [place] COPPER BLOODon 01-18-2025 Copper [Mass/Vol] 119 ug/dL Normal 80-155 [facility] Comment on above: Order Comment: Speci men Type: BLOOD SPECIMENOrdering Facility: [facility] Address: [address] [place] [address] Result Comment: This test was developed, and its performance characteristics determined by the [facility] Department of Pathology and Laboratory Medicine. It has not been cleared or approved by the FDA. The [facility] Department of Pathology and Laboratory Medicine is regulated under CLIA as qualified to perform high-complexity testing. This test is used for clinical purposes. It should not be regarded as investigational or for research. Performed By: #### C OPPER ####[facility] LABCLIA [id number] [place] [address] [place] Comprehensive metabolic 2000 panelon 08-02-2024 Albumin [Mass/Vol] 4.4 g/dL Normal 3.9-4.9 [facility] Comment on above: Order Comment: Speci men Type: BLOOD SPECIMENOrdering Facility: [facility] Address: [address] [place] [address] Performed By: #### 4 542-7, 10508-5, 58958-1 ####[facility] LABIA [id number] [place] [address] [place] ALP [Catalytic activity/Vol] 80 U/L Normal 34-123 [facility] Comment on above: Order Comment: Speci men Type: BLOOD SPECIMENOrdering Facility: [facility] Address: [address] [place] [address] Performed By: #### 4 542-7, 32413-0, 96269-1 ####[facility] LABIA [id number] [place] [address] [place] ALT [Catalytic activity/Vol] 13 U/L Normal 7-38 [facility] Comment on above: Order Comment: Speci men Type: BLOOD SPECIMENOrdering Facility: [facility] Address: [address] [place] [address] Performed By: #### 4 542-7, 06075-3, 89005-8 ####[facility] LABCLIA [id number] [address] [address] [place] Anion gap [Moles/Vol] 12 mmol/L Normal 8-15 [facility] Comment on above: Order Comment: Speci men Type: BLOOD SPECIMENOrdering Facility: [facility] Address: [address] [place] [address] Performed By: #### 4 542-7, 18587-1, 42465-0 ####[facility] LABCLIA [id number] [place] [address] [place] AST [Catalytic activity/Vol] 17 U/L Normal 13-35 [facility] Comment on above: Order Comment: Speci men Type: BLOOD SPECIMENOrdering Facility: [facility] Address: [address] [place] [address] Performed By: #### 4 542-7, 39093-2, ####[facility] LABCLIA [id number] [place] [id number] [place] Bilirubin [Mass/Vol] 0.2 mg/dL Normal 0.2-1.3 [facility] Comment on above: Order Comment: Speci men Type: BLOOD SPECIMENOrdering Facility: [facility] Address: [address] [place] [address] Performed By: #### 4 542-7, 36231-4, 12846-7 ####[facility] LABCLIA [id number] [address] [address] [place] Calcium [Mass/Vol] 9.2 mg/dL Normal 8.5-10.2 [facility] Comment on above: Order Comment: Speci men Type: BLOOD SPECIMENOrdering Facility: [facility] Address: [address] [place] [address] Performed By: #### 4 542-7, 54772-8, 25360-3 ####[facility] LABIA [id number] [place] [address] [place] Chloride [Moles/Vol] 105 mmol/L Normal 98-107 [facility] Comment on above: Order Comment: Speci men Type: BLOOD SPECIMENOrdering Facility: [facility] Address: [address] [place] [address] Performed By: #### 4 542-7, 21400-7, 99980-2 ####[facility] [id number] [place] [address] [place] CO2 [Moles/Vol] 22 mmol/L Normal 22-30 [facility] Comment on above: Order Comment: Speci men Type: BLOOD SPECIMENOrdering Facility: [facility] Address: [address] [place] [address] Performed By: #### 4 542-7, 77052-5, 31498-6 ####[facility] [id number] [place] [address] [place] Creatinine [Mass/Vol] 0.70 mg/dL Normal 0.58-0.96 [facility] Comment on above: Order Comment: Speci men Type: BLOOD SPECIMENOrdering Facility: [facility] Address: [address] [place] [address] Performed By: #### 4 542-7, 40522-7, 71334-3 ####[facility] [id number] [place] [id number] [place] Creatinine and Glomerular filtration rate.predicted panel (S/P/Bld) 115 mL/min/1.73m??? Normal >=60 [facility] Comment on above: Order Comment: Speci men Type: BLOOD SPECIMENOrdering Facility: [facility] Address: [address] [place] [address] Result Comment: Monica mated Glomerular Filtration Rate (eGFR) is calculated using the 2020 CKD-EPI creatinine equation. This equation utilizes serum creatinine, sex, and age as parameters. The creatinine assay has traceable calibration to isotope dilution-mass spectrometry. Refer to KDIGO guidelines for clinical interpretation. In patients with unstable renal function, e.g. those with acute kidney injury, the eGFR may not accurately reflect actual GFR. Performed By: #### 4 542-7, 45191-2, ####[facility] LABCLIA [id number] [address] [address] [place] Glucose [Mass/Vol] 85 mg/dL Normal 74-99 [facility] Comment on above: Order Comment: Faina stewart Type: BLOOD SPECIMENOrdering Facility: [facility] Address: [address] [place] [address] Result Comment: The Canadian Diabetes Association (ADA) provides guidance for cutoff values for fasting glucose and random glucose. The ADA defines fasting as no caloric intake for at least 8 hours. Fasting plasma glucose results between 100 to 125 mg/dL indicate increased risk for diabetes (prediabetes). Fasting plasma glucose results greater than or equal to 126 mg/dL meet the criteria for diagnosis of diabetes. In the absence of unequivocal hyperglycemia, results should be confirmed by repeat testing. In a patient with classic symptoms of hyperglycemia or hyperglycemic crisis, random plasma glucose results greater than or equal to 200 mg/dL meet the criteria for diagnosis of diabetes. Reference: Standards of Medical Care in Diabetes 2016, Canadian Diabetes Association. Diabetes Care. 2016.39(Suppl 1). Performed By: #### 4 542-7, 29802-5, ####[facility] LABCLIA [id number] [place] [id number] [place] Potassium [Moles/Vol] 4.5 mmol/L Normal 3.7-5.1 [facility] Comment on above: Order Comment: Faina stewart Type: BLOOD SPECIMENOrdering Facility: [facility] Address: [address] [place] [id number] Performed By: #### 4 542-7, 06911-0, ####[facility] LABCLIA [id number] [place] [address] [place] Protein [Mass/Vol] 7.2 g/dL Normal 6.3-8.0 [facility] Comment on above: Order Comment: Speci men Type: BLOOD SPECIMENOrdering Facility: [facility] Address: [address] [place] [address] Performed By: #### 4 542-7, 55569-9, 13250-1 ####[facility] LABCLIA [id number] [place] [address] [place] Sodium [Moles/Vol] 139 mmol/L Normal 136-144 [facility] Comment on above: Order Comment: Speci men Type: BLOOD SPECIMENOrdering Facility: [facility] Address: [address] [place] [address] Performed By: #### 4 542-7, 64713-9, 08445-4 ####[facility] LABCLIA [id number] [place] [address] [place] Urea nitrogen [Mass/Vol] 9 mg/dL Normal 7-21 [facility] Comment on above: Order Comment: Speci men Type: BLOOD SPECIMENOrdering Facility: [facility] Address: [address] [place] [address] Performed By: #### 4 542-7, 16063-6, 79654-9 ####[facility] LABCLIA [id number] [place] [address] [place] Folate SerPl-mCncon 08-02-19 Folate [Mass/Vol] 10.0 ng/mL Normal >4.7 [facility] Comment on above: Order Comment: Speci men Type: SWAB [facility] Address: [address] [place] [address] Performed By: #### B JAQUAN ESCUDEROV #### [facility] LAB CLIA [id number] [address] [place] [address] [place] Haptoglob SerPl-mCncon 08-02 Haptoglobin [Mass/Vol] 119 mg/dL Normal 31-238 [facility] Comment on above: Order Comment: Speci men Type: BLOOD SPECIMENOrdering Facility: [facility] Address: [address] [place] [address] Performed By: #### 4 542-7, 38699-9, ####[facility] LABCLIA [id number] [place] [address] [place] LDH SerPl-cCncon 08-02-2024 LDH [Catalytic activity/Vol] 166 U/L Normal 135-214 [facility] Comment on above: Order Comment: Speci men Type: SWAB [facility] Address: [address] [place] [address] Performed By: #### B KOTA [employer] #### [facility] LAB CLIA [id number] [address] [place] [address] [place] Lipid 1996 panelon 5 Cholesterol [Mass/Vol] 176 mg/dL Normal <200 [facility] Comment on above: Order Comment: Speci men Type: BLOOD SPECIMENOrdering Facility: [facility] Address: [address] [place] [address] Result Comment: <200 mg/dL, Desirable 200-239 mg/dL, Borderline high >239 mg/dL, High Performed By: #### 4 542-7, 97901-8, ####[facility] LABCLIA [id number] [place] [address] [place] Cholesterol in HDL [Mass/Vol] 38 mg/dL Low >39 [facility] Comment on above: Order Comment: Speci men Type: BLOOD SPECIMENOrdering Facility: [facility] Address: [address] [place] [address] Result Comment: 40-5 9 mg/dL, Acceptable >59 mg/dL, High: Negative risk factor for coronary heart disease <40 mg/dL, Low: Positive risk factor for coronary heart disease Performed By: #### 4 542-7, 83724-2, ####[facility] LABCLIA [id number] [address] [address] [place] Cholesterol in LDL [Mass/Vol] 120 mg/dL High <100 [facility] Comment on above: Order Comment: Speci men Type: BLOOD SPECIMENOrdering Facility: [facility] Address: [address] [place] [address] Result Comment: <100 mg/dL, Optimal 100-129 mg/dL, Near optimal/above optimal 130-159 mg/dL, Borderline high 160-189 mg/dL, High >189 mg/dL, Very high Secondary prevention optimal LDL Cholesterol levels are recommended to be < 70 mg/dL Performed By: #### 4 542-7, 98805-4, ####[facility] LABCLIA [id number] [place] [address] [place] Cholesterol in LDL/Cholesterol in HDL [Mass ratio] 3.16 {ratio} High <2.54 [facility] Comment on above: Order Comment: Speci men Type: BLOOD SPECIMENOrdering Facility: [facility] Address: [address] [place] [address] Result Comment: Edgar carson: 1. National Cholesterol Education Program ATP III Guideline At-A-Glance Quick Desk Reference: National Heart, Lung, and Blood [place]. National Institutes of Health. 2001: NIH Publication No. 01-3305. 2. An International Atherosclerosis Society position paper: global recommendations for the management of dyslipidemia: executive summary, Atherosclerosis. 2014: 232(2):410-413. Performed By: #### 4 542-7, 20909-4, 56121-6 ####[facility] LABIA [id number] [place] [address] [place] Cholesterol in VLDL [Mass/Vol] 18 mg/dL Normal <30 [facility] Comment on above: Order Comment: Speci men Type: BLOOD SPECIMENOrdering Facility: [facility] Address: [address] [place] [address] Performed By: #### 4 542-7, 07777-5, ####[facility] LABCLIA [id number] [address] [address] [place] Cholesterol non HDL [Mass/Vol] 138 mg/dL High <130 [facility] Comment on above: Order Comment: Speci men Type: BLOOD SPECIMENOrdering Facility: [facility] Address: [address] [place] [address] Result Comment: <130 mg/dL, Optimal 130-159 mg/dL, Near optimal/above optimal 160-189 mg/dL, Borderline high 190-219 mg/dL, High >219 mg/dL, Very high Secondary prevention optimal non HDL Cholesterol levels are recommended to be <100 mg/dL Performed By: #### 4 542-7, 67993-6, ####[facility] LABCLIA [id number] [place] [address] [place] Cholesterol.total/Marilia sterol in HDL [Mass ratio] 4.63 {ratio} Normal <5.10 [facility] Comment on above: Order Comment: Speci men Type: BLOOD SPECIMENOrdering Facility: [facility] Address: [address] [place] [address] Performed By: #### 4 542-7, , ####[facility] LABCLIA [id number] [place] [address] [place] FASTING TIME 12 hrs Normal [facility] Comment on above: Order Comment: Speci men Type: BLOOD SPECIMENOrdering Facility: [facility] Address: [address] [place] [id number] Performed By: #### 4 542-7, , ####[facility] LABCLIA [id number] [place] [id number] [place] Triglyceride [Mass/Vol] 91 mg/dL Normal <150 [facility] Comment on above: Order Comment: Speci men Type: BLOOD SPECIMENOrdering Facility: [facility] Address: [address] [place] [address] Result Comment: <150 mg/dL, Normal 150-199 mg/dL, Borderline high 200-499 mg/dL, High >499 mg/dL, Very high Performed By: #### 4 542-7, 16254-4, 72686-4 ####[facility] LABIA [id number] [place] [address] [place] Retics #on 08-02-2024 Reticulocytes (Bld) [#/Vol] 0.0001 10*3/uL Normal 0.018-0.100 [facility] Comment on above: Order Comment: Harooni men Type: BLOOD SPECIMENOrdering Facility: [facility] Address: [address] [place] [address] Performed By: #### 5 7021-8, 63438-9 ####[facility] LABIA [id number] [place] [address] [place] Reticulocytes (Bld) [#/Vol]o n 08-02-2024 Reticulocytes/100 RBC (Bld) 2.1 % High 0.4-2.0 [facility] Comment on above: Order Comment: Harooni terry Type: BLOOD SPECIMENOrdering Facility: [facility] Address: [address] [place] [address] Performed By: #### 5 7021-8, 54054-2 ####[facility] [id number] [place] [address] [place] VITAMIN B1 (THIAMINE), WHOLE BLOODon 08-02-2024 Thiamine (Bld) [Moles/Vol] 159.2 nmol/L Normal 84.3-213.3 [facility] Comment on above: Order Comment: Harooni terry Type: SWAB [facility] Address: [address] [place] [address] Result Comment: This assay measures the concentration of thiamine diphosphate (TDP), the primary active form of vitamin B1. Approximately 90 percent of vitamin B1 present in whole blood is TDP. Thiamine and thiamine monophosphate, which comprise the remaining 10 percent, are not measured. This test was developed, and its performance characteristics determined by the [facility] Department of Pathology and Laboratory Medicine. It has not been cleared or approved by the FDA. The [facility] Department of Pathology and Laboratory Medicine is regulated under CLIA as qualified to perform high-complexity testing. This test is used for clinical purposes. It should not be regarded as investigational or for research. Performed By: #### B KOTA, CVTV #### [facility] CLIA [id number] [address] [place] [address] [place] VITAMIN B6/PYRIDOXINon 08-02 VITAMIN B6 35.8 nmol/L Normal 20.0-125.0 [facility] Comment on above: Order Comment: Speci men Type: SWAB Ordering Facility: [facility] Address: [address] [place] [address] Result Comment: INTE RPRETIVE INFORMATION: Vitamin B6 (Pyridoxal 5-Phosphate) Pyridoxal 5'-phosphate measured in a specimen collected following an 8-hour or overnight fast accurately indicates vitamin B6 nutritional status. Non-fasting specimen concentration reflects recent vitamin intake. This test was developed and its performance characteristics determined by [employer]. It has not been cleared or approved by the US Food and Drug Administration. This test was performed in a CLIA certified laboratory and is intended for clinical purposes. Performed By: [employer] [address] [place] [id number] [employer]: Ganesh Gilmore MD, PhD CLIA Number: [id number] Performed By: #### B KOTA CVTV #### [facility] CLIA [id number] [address] [place] [address] [place] Vit B12 SerPl-mCncon 025 Cobalamin (Vitamin B12) [Mass/Vol] 392 pg/mL Normal 232-1245 [facility] Comment on above: Order Comment: Speci men Type: SWAB Ordering Facility: [facility] Address: [address] [place] [address] Performed By: #### B KOTA CVTV #### [facility] CLIA [id number] [address] [place] [address] OF [facility] Charisse 07-30-2024 MARBELLA Telephone (KRISTIN) PATI MOHAMUD ([id number]) 1985 F Date Time Provider Department 07/30/24 JOHN GILES During your visit today, we recorded the following information about you: John Giles APRN.CNP 07/30/2024 9:03 AM Signed Let patient know that her vitamin D level remains low and I would like her to resume the high dose supplement once weekly. Also, her anemia has worsened and iron counts are very low. Resume iron twice daily if tolerated, at least once daily. Being on the omeprazole is going to affect the absorption of the iron unfortunately but if it's maintaining her GERD symptoms, ok to continue for now. May be best to also see the casualty underwriter and consider iron infusions, I placed the referral to schedule with them. Schedule follow-up in the office in 1 month to re-evaluate and will be due for repeat blood count labs at that time. Other labs show normal thyroid function and blood sugar in the prediabetes range, will discuss more at next appointment. John Giles APRN.ARPIT Requested Prescriptions Signed Prescriptions Disp Refills cholecalciferol, Vitamin D3, (VITAMIN D3) 1,250 mcg (50,000 unit) cap capsule 12 capsule 1 Sig: Take 1 capsule by mouth one time a week. Authorizing Provider: JOHN GILES ferrous sulfate 325 mg (65 mg iron) tablet 60 tablet 2 Sig: Take 1 tablet by mouth two times a day with meals. Authorizing Provider: JOHN GILES Pharmacy Information Pharmacy Address Telephone [facility]/pharmacy #[id number] [place] [id number] Gladis Brower RN 07/30/2024 11:51 AM Signed Left voicemail for patient to call back and receive a message from provider. Vielka Castro RN 07/31/2024 10:19 AM Signed Message to patient, agreed. Will CB to schedule one month f/u. Does have an appt. with Hematology. Allergies As of Date: 07/30/2024 (No Known Allergies) Date Reviewed: 07/17/2024 Reviewed by: John Giles APRN.CAKE PUNCHER - Fully Assessed Reason for Visit: Results [95] Orders [681] Primary Visit Diagnosis:Anemia, unspecified type [D64.9] Other Visit Diagnosis:Vitamin D deficiency [E55.9] Order(s):cholecalcif madiha, Vitamin D3, (VITAMIN D3) 1,250 mcg (50,000 unit) cap capsuleTake 1 capsule by mouth one time a week.Disp: 12 capsuleRfl: 1 ferrous sulfate 325 mg (65 mg iron) tabletTake 1 tablet by mouth two times a day with meals.Disp: 60 tabletRfl: 2 CONSULT TO HEMATOLOGY [9014] Order #: [id number]: 1 FUTURE Prescriptions as of 07/31/2024 - cholecalciferol, Vitamin D3, (VITAMIN D3) 1,250 mcg (50,000 unit) cap capsule Take 1 capsule by mouth one time a week. - ferrous sulfate 325 mg (65 mg iron) tablet Take 1 tablet by mouth two times a day with meals. - penicillin V potassium 500 mg tablet Take 500 mg by mouth four times daily. - naproxen (NAPROSYN) 500 mg tablet Take 500 mg by mouth two times a day with meals. - Omeprazole 20 mg TbEC Take 1 tablet by mouth two times a day. - dupilumab (DUPIXENT PEN) 300 mg/2 mL pen injection Inject 300 mg subcutaneously every 2 weeks. - LORazepam (ATIVAN) 0.5 mg Take 1 mg by mouth once daily as needed. Problem List As Of Date 07/30/2024 Noted Resolved Premature rupture of membranes [O42.90] 10/01/2017 02/10/2018 Vaginal bleeding [N93.9] 10/01/2017 02/10/2018 Adjustment disorder with mixed anxiety and depr*03/18/2018 Obesity, Class II, BMI 35-39.9 [E66.812] 03/01/2022 Obesity, Class III, BMI >= 40 [E66.01] 04/07/2022 Prescriptions ordered this encounter Disp Refills Start End CHOLECALCIFEROL (VITAMIN D3) 1,250 M* 12 c* 1 07/30/2024 01/26/2025 Route: ORAL Sig: Take 1 capsule by mouth one time a week. FERROUS SULFATE 325 MG (65 MG IRON) * 60 t* 2 07/30/2024 Route: ORAL Sig: Take 1 tablet by mouth two times a day with meals. Encounter Status:Closed by VIELKA CASTRO on 07/31/24 Normal [facility] 25(OH)D3 SerPl-mCncon 2024 25-hydroxyvitamin D3 [Mass/Vol] 12.6 ng/mL Low 31.0-80.0 [facility] Comment on above: Order Comment: Speci men Type: BLOOD SPECIMEN Ordering Facility: [facility] Address: [address] [place] [address] Result Comment: Clas sification of 25 [place] Vitamin D status: Deficiency/Insufficiency: < or = 30 ng/ml. Sufficiency/Optimal Levels: 31-80 ng/mL Toxicity: > 100 ng/mL. Test performed by chemiluminescent immunoassay. Performed By: #### 1 989-3 #### [facility] CLIA [id number] [address] [place] [address] [place] CBC panel Auto (Bld)on 07-28 Erythrocyte distribution width (RBC) [Ratio] 18.5 % High 11.5-15.0 [facility] Comment on above: Order Comment: Speci men Type: BLOOD SPECIMENOrdering Facility: [facility] Address: [address] [place] [address] Performed By: #### 5 8410-2 ####[facility] [id number] [place] [address] [place] Hematocrit (Bld) [Volume fraction] 31.8 % Low 36.0-46.0 [facility] Comment on above: Order Comment: Speci men Type: BLOOD SPECIMENOrdering Facility: [facility] Address: [address] [place] [address] Performed By: #### 5 8410-2 ####[facility] [id number] [place] [address] [place] Hemoglobin (Bld) [Mass/Vol] 9.1 g/dL Low 11.5-15.5 [facility] Comment on above: Order Comment: Speci men Type: BLOOD SPECIMENOrdering Facility: [facility] Address: [address] [place] [address] Performed By: #### 5 8410-2 ####[facility] [id number] [place] [address] [place] MCH (RBC) [Entitic mass] 21.2 pg Low 26.0-34.0 [facility] Comment on above: Order Comment: Speci men Type: BLOOD SPECIMENOrdering Facility: [facility] Address: [address] [place] [address] Performed By: #### 5 8410-2 ####[facility]IA [id number] [place] [address] [place] MCHC (RBC) [Mass/Vol] 28.6 g/dL Low 30.5-36.0 [facility] Comment on above: Order Comment: Speci men Type: BLOOD SPECIMENOrdering Facility: [facility] Address: [address] [place] [address] Performed By: #### 5 8410-2 ####[facility]IA [id number] [place] [address] [place] MCV (RBC) [Entitic vol] 74.1 fL Low 80.0-100.0 C [facility] Comment on above: Order Comment: Speci men Type: BLOOD SPECIMENOrdering Facility: [facility] Address: [address] [place] [address] Performed By: #### 5 8410-2 ####[facility] [id number] [place] [address] [place] Nucleated RBC (Bld) [#/Vol] 10*3/uL Normal <0.01 [facility] Comment on above: Order Comment: Speci men Type: BLOOD SPECIMENOrdering Facility: [facility] Address: [address] [place] [address] Performed By: #### 5 8410-2 ####[facility]IA [id number] [place] [address] [place] Platelet mean volume (Bld) [Entitic vol] 10.7 fL Normal 9.0-12.7 [facility] Comment on above: Order Comment: Speci men Type: BLOOD SPECIMENOrdering Facility: [facility] Address: [address] [place] [address] Performed By: #### 5 8410-2 ####[facility]IA [id number] [place] [address] [place] Platelets (Bld) [#/Vol] 293 10*3/uL Normal 150-400 [facility] Comment on above: Order Comment: Speci men Type: BLOOD SPECIMENOrdering Facility: [facility] Address: [address] [place] [address] Performed By: #### 5 8410-2 ####[facility]IA [id number] [place] [address] [place] RBC (Bld) [#/Vol] 4.29 10*6/uL Normal 3.90-5.20 [facility] Comment on above: Order Comment: Speci men Type: BLOOD SPECIMENOrdering Facility: [facility] Address: [address] [place] [address] Performed By: #### 5 8410-2 ####[facility]IA [id number] [place] [address] [place] WBC (Bld) [#/Vol] 6.16 10*3/uL Normal 3.70-11.00 [facility] Comment on above: Order Comment: Speci men Type: BLOOD SPECIMENOrdering Facility: [facility] Address: [address] [place] [address] Performed By: #### 5 8410-2 ####[facility]CL[facility] [id number] [place] [address] [place] Comprehensive metabolic 2000 panelon 07-28-2024 Albumin [Mass/Vol] 4.4 g/dL Normal 3.9-4.9 [facility] Comment on above: Order Comment: Speci men Type: SWAB Ordering Facility: [facility] Address: [address] [place] [address] Performed By: #### B VAMP, CVTV #### [facility] CLIA [id number] [address] [place] [address] [place] ALP [Catalytic activity/Vol] 81 U/L Normal 34-123 [facility] Comment on above: Order Comment: Speci men Type: SWAB Ordering Facility: [facility] Address: [address] [place] [address] Performed By: #### B VAMP, CVTV #### [facility] CLIA [id number] [address] [place] [address] [place] ALT [Catalytic activity/Vol] 16 U/L Normal 7-38 [facility] Comment on above: Order Comment: Speci men Type: SWAB Ordering Facility: [facility] Address: [address] [place] [address] Performed By: #### B VAMP, CVTV #### [facility] CLIA [id number] [address] [place] [address] [place] Anion gap [Moles/Vol] 13 mmol/L Normal 8-15 [facility] Comment on above: Order Comment: Speci men Type: SWAB Ordering Facility: [facility] Address: [address] [place] [address] Performed By: #### B VAMP, CVTV #### [facility] CLIA [id number] [address] [place] [address] [place] AST [Catalytic activity/Vol] 18 U/L Normal 13-35 [facility] Comment on above: Order Comment: Speci men Type: SWAB Ordering Facility: [facility] Address: [address] [place] [address] Performed By: #### B VAMP, CVTV #### [facility] CLIA [id number] [address] [place] [address] [place] Bilirubin [Mass/Vol] 0.2 mg/dL Normal 0.2-1.3 [facility] Comment on above: Order Comment: Speci men Type: SWAB Ordering Facility: [facility] Address: [address] [place] [address] Performed By: #### B VAMP, CVTV #### [facility] CLIA [id number] [address] [place] [address] [place] Calcium [Mass/Vol] 9.5 mg/dL Normal 8.5-10.2 [facility] Comment on above: Order Comment: Speci men Type: SWAB Ordering Facility: [facility] Address: [address] [place] [address] Performed By: #### B VAMP, CVTV #### [facility] CLIA [id number] [address] [place] [address] [place] Chloride [Moles/Vol] 104 mmol/L Normal 98-107 [facility] Comment on above: Order Comment: Speci men Type: SWAB Ordering Facility: [facility] Address: [address] [place] [address] Performed By: #### B VAMP, CVTV #### [facility] CLIA [id number] [address] [place] [address] [place] CO2 [Moles/Vol] 24 mmol/L Normal 22-30 [facility] Comment on above: Order Comment: Speci men Type: SWAB Ordering Facility: [facility] Address: [address] [place] [address] Performed By: #### B VAMP, CVTV #### [facility] CLIA [id number] [address] [place] [address] [place] Creatinine [Mass/Vol] 0.97 mg/dL High 0.58-0.96 [facility] Comment on above: Order Comment: Speci men Type: SWAB Ordering Facility: [facility] Address: [address] [place] [address] Performed By: #### B VAMP, CVTV #### [facility] CLIA [id number] [address] [place] [address] [place] Creatinine and Glomerular filtration rate.predicted panel (S/P/Bld) 78 mL/min/1.73m??? Normal >=60 [facility] Comment on above: Order Comment: Speci men Type: SWAB Ordering Facility: [facility] Address: [address] [place] [address] Result Comment: Monica mated Glomerular Filtration Rate (eGFR) is calculated using the 2020 CKD-EPI creatinine equation. This equation utilizes serum creatinine, sex, and age as parameters. The creatinine assay has traceable calibration to isotope dilution-mass spectrometry. Refer to KDIGO guidelines for clinical interpretation. In patients with unstable renal function, e.g. those with acute kidney injury, the eGFR may not accurately reflect actual GFR. Performed By: #### B VAMP, CVTV #### [facility] CLIA [id number] [address] [place] [address] [place] Glucose [Mass/Vol] 112 mg/dL High 74-99 [facility] Comment on above: Order Comment: Speci men Type: SWAB Ordering Facility: [facility] Address: [address] [place] [address] Result Comment: The Canadian Diabetes Association (ADA) provides guidance for cutoff values for fasting glucose and random glucose. The ADA defines fasting as no caloric intake for at least 8 hours. Fasting plasma glucose results between 100 to 125 mg/dL indicate increased risk for diabetes (prediabetes). Fasting plasma glucose results greater than or equal to 126 mg/dL meet the criteria for diagnosis of diabetes. In the absence of unequivocal hyperglycemia, results should be confirmed by repeat testing. In a patient with classic symptoms of hyperglycemia or hyperglycemic crisis, random plasma glucose results greater than or equal to 200 mg/dL meet the criteria for diagnosis of diabetes. Reference: Standards of Medical Care in Diabetes 2016, Canadian Diabetes Association. Diabetes Care. 2016.39(Suppl 1). Performed By: #### B VAMP, CVTV #### [facility] CLIA [id number] [address] [place] [address] [place] Potassium [Moles/Vol] 4.7 mmol/L Normal 3.7-5.1 [facility] Comment on above: Order Comment: Speci men Type: SWAB Ordering Facility: [facility] Address: [address] [place] [address] Performed By: #### B VAMP, CVTV #### [facility] CLIA [id number] [address] [place] [address] [place] Protein [Mass/Vol] 6.7 g/dL Normal 6.3-8.0 [facility] Comment on above: Order Comment: Speci men Type: SWAB Ordering Facility: [facility] Address: [address] [place] [address] Performed By: #### B VAMP, CVTV #### [facility] CLIA [id number] [address] [place] [address] [place] Sodium [Moles/Vol] 141 mmol/L Normal 136-144 [facility] Comment on above: Order Comment: Speci men Type: SWAB Ordering Facility: [facility] Address: [address] [place] [address] Performed By: #### B VAMP, CVTV #### [facility] CLIA [id number] [address] [place] [address] [place] Urea nitrogen [Mass/Vol] 12 mg/dL Normal 7-21 [facility] Comment on above: Order Comment: Speci men Type: SWAB Ordering Facility: [facility] Address: [address] [place] [address] Performed By: #### B VAMP, CVTV #### [facility] CLIA [id number] [address] [place] [address] [place] Ferritin SerPl-mCncon 2024 Ferritin [Mass/Vol] 6.3 ng/mL Low 14.7-205.1 [facility] Comment on above: Order Comment: Speci men Type: SWAB Ordering Facility: [facility] Address: [address] [place] [address] Performed By: #### Paige VAMP, CVTV #### [facility] [place] [id number] [address] [place] [address] [place] HbA1c (Bld)on 07-28-2024 Average glucose Estimated from glycated hemoglobin (Bld) [Mass/Vol] 120 mg/dL Normal [facility] Comment on above: Order Comment: Speci men Type: SWAB Ordering Facility: [facility] Address: [address] [place] [address] Result Comment: eAG: (Estimated average glucose) is a calculated value from HgbA1c and is medical detail representative of the average blood glucose level in the last 2-3 month period. Performed By: #### B VAMP, CVTV #### [facility] CLIA [id number] [address] [place] [address] [place] HbA1c (Bld) [Mass fraction] 5.8 % High 4.3-5.6 [facility] Comment on above: Order Comment: Speci men Type: SWAB Ordering Facility: [facility] Address: [address] [place] [address] Result Comment: Amer [place] Diabetes Association guidelines indicate that patients with HgbA1c in the range 5.7-6.4% are at increased risk for development of diabetes, and intervention by lifestyle modification may be beneficial. HgbA1c greater or equal to 6.5% is considered diagnostic of diabetes. Performed By: #### B VAMP, CVTV #### [facility] CLIA [id number] [address] [place] [address] [place] Iron and Iron binding capaci ty panelon 07-28-2024 Iron [Mass/Vol] 27 ug/dL Low 41-186 [facility] Comment on above: Order Comment: Speci men Type: SWAB Ordering Facility: [facility] Address: [address] [place] [address] Performed By: #### B VAMP, CVTV #### [facility] CLIA [id number] [address] [place] [address] [place] Iron binding capacity [Mass/Vol] 358 ug/dL Normal 232-386 [facility] Comment on above: Order Comment: Speci men Type: SWAB Ordering Facility: [facility] Address: [address] [place] [address] Performed By: #### B VAMP, CVTV #### [facility] CLIA [id number] [address] [place] [address] [place] Iron/TIBC [Molar ratio] 7.5 % Low 15.0-57.0 C [facility] Comment on above: Order Comment: Speci men Type: SWAB Ordering Facility: [facility] Address: [address] [place] [address] Performed By: #### B VAMP, CVTV #### [facility] CLIA [id number] [address] [place] [address] [place] TSH SerPl-aCncon 07-28-2024 TSH Qn 0.688 m[IU]/L Normal 0.270-4.200 [facility] Comment on above: Order Comment: Speci men Type: SWAB Ordering Facility: [facility] Address: [address] [place] [address] Result Comment: If t he patient is , TSH reference range varies by gestational period: First Trimester (weeks 9-12): 0.180-2.990 mIU/L Second Trimester: 0.110-3.980 mIU/L Third Trimester: 0.480-4.710 mIU/L Gerson Weber et al. A Practical Approach for the Verifications and Determination of Site- and Trimester-Specific Reference Intervals for Thyroid Function tests in . Thyroid, 2019:29:3:412-420. Daniel Hernandez et al. 2017 Guidelines of the Canadian Thyroid Association for the Diagnosis and Management of Thyroid Disease during and the . Thyroid, 2017:27:3:315-389. Performed By: #### JOSE HARRELL #### [facility] CLIA [id number] [address] [place] [address] OF [facility] CNOVon 07-17-2024 CNOV Office Visit ([id number]) PATI MOHAMUD ([id number]) 1985 F Date Time Provider Department 07/17/24 1:40 PM JOHN GILES FPANDREINA During your visit today, we recorded the following information about you: Pulse Blood pressure Weight Height 83/minute 125/81 116 kg 1.676 m John Giles APRN.CAKE PUNCHER 07/17/2024 2:33 PM Signed This note was created using NoteWriter. Subjective Pati Mary Cade is a 38 year old female. Two weeks ago, tooth starting hurting, started on penicillin. This is a tooth that previously had root canal. Saw the dentist and was also given steroid and a few Tylenol 3. Patient to see dentist again today for follow-up, last dose of antibiotic yesterday. Prior to that, she was having GI symptoms like once per month and now daily. Feels like squeezing burning pain into epigastric pain and mid sternum. Taking 40 mg of omeprazole daily. Is having nausea and vomiting. Still smoking 1/2 PPD. Last saw this provider in August 2023 and was started on Protonix, patient doesn't remember if she took it or not. Also had abnormal labs at that time, not sure if she took the high dose vitamin D that was prescribed, had low TSH at that time with no repeat labs. Patient reports that she has been going through a divorce and under a lot of stress. The history is provided by the patient. Review of Systems HENT: Positive for dental problem. Respiratory: Positive for shortness of breath. Negative for cough and wheezing. Cardiovascular: Positive for chest pain. Gastrointestinal: Positive for abdominal pain, nausea and vomiting. PAST MEDICAL HISTORY Diagnosis Date Anemia Morbid obesity (HCC) PAST SURGICAL HISTORY Procedure Laterality Date 48 HOUR PH STUDY 06/11/2013 mild acid reflux disease ANESTH, SECTION 2005, 2010twice CHOLECYSTECTOMY COLONOSCOPY 11/25/2012 normal EGD 10/08/2012 Schatzki's ringt, hiatal hernia, 2 small benign gastric polyps EMS PROCEDURE 06/11/2013 low LES pressures with normal relaxation response to a wet swallow with normal esophageal body motility HIATAL HERNIA REPAIR HX ORAL SURGERY PROCEDURE REMOVAL OF ANAL FISSURE 04/07/2022 ALLERGIES Patient has no known allergies. MEDICATIONS penicillin V potassium 500 mg tablet Take 500 mg by mouth four times daily. naproxen (NAPROSYN) 500 mg tablet Take 500 mg by mouth two times a day with meals. Omeprazole 20 mg TbEC Take 1 tablet by mouth two times a day. metroNIDAZOLE (FLAGYL) 500 mg tablet Take 1 tablet by mouth two times a day for 7 days. nystatin (MYCOSTATIN) cream Apply to affected area two times a day for 14 days. dupilumab (DUPIXENT PEN) 300 mg/2 mL pen injection Inject 300 mg subcutaneously every 2 weeks. LORazepam (ATIVAN) 0.5 mg Take 1 mg by mouth once daily as needed. FAMILY HISTORY Family history unknown: Yes Social History Tobacco Use Smoking status: Every Day Current packs/day: 0.00 Types: Cigarettes Last attempt to quit: 05/2017 Years since quittin.1 Smokeless tobacco: Never Vaping Use Vaping status: Never Used Substance Use Topics Alcohol use: No Drug use: No Objective BP 125/81 Pulse 83 Ht 167.6 cm (5' 5.98) Wt 116 kg (255 lb 11.7 oz) LMP 07/30/2023 (Approximate) BMI 41.30 kg/m? Physical Exam Vitals and nursing note reviewed. Constitutional: Appearance: She is well-developed. She is obese. She is not ill-appearing. Cardiovascular: Rate and Rhythm: Normal rate and regular rhythm. Pulses: Normal pulses. Heart sounds: Normal heart sounds. Pulmonary: Effort: Pulmonary effort is normal. Breath sounds: Normal breath sounds. Abdominal: General: Bowel sounds are normal. There is no distension. Palpations: Abdomen is soft. Tenderness: There is abdominal tenderness in the epigastric area. Skin: General: Skin is warm and dry. Neurological: Mental Status: She is alert and oriented to person, place, and time. Assessment and Plan 1. Gastroesophageal reflux disease without esophagitis 2. Epigastric pain 3. Chest pain, unspecified type Chest and epigastric pain likely related to GERD, possibly aggravated by recent antibiotic and NSAID use. Continue omeprazole 40 mg on empty stomach in a.m., add on famotidine 40 mg QHS on empty stomach. Avoid food triggers, sit upright for several hours after eating, small frequent meals. Schedule with GI NANDO. Any severe worsening pain, go to ER. Recommend fasting labs and follow-up within 1 month. - CONSULT TO GASTROENTEROLOGY; Future - COMPREHENSIVE METABOLIC PANEL; Future - ECG COMPLETE 4. Low TSH level Due for repeat labs. - THYROID STIMULATING HORMONE; Future 5. Anemia, unspecified type Due for repeat. - COMPLETE BLOOD COUNT; Future - FERRITIN; Future - IRON AND TIBC; Future 6. Vitamin D deficiency Repeat. No current supplementation. - VITAMIN D 25 HYDROXY; Future 7. Scr (more content not included)... Normal [facility] ECG COMPLETEon 07-17-2024 ECG COMPLETE Ventricular Rate : 63 BPM Atrial Rate : 63 BPM P-R Interval : 158 ms QRS Duration : 92 ms Q-T Interval : 398 ms QTC Calculation(Bazett) : 407 ms Calculated P [place] : 41 degrees Calculated R [place] : 10 degrees Calculated T [place] : 8 degrees SINUS RHYTHM WITH MARKED SINUS ARRHYTHMIA POSSIBLE INFERIOR MYOCARDIAL INFARCTION , AGE UNDETERMINED ABNORMAL ECG Confirmed by MD JUAN GREGORY () on 07/18/2024 8:56:32 AM NAME : PATI MOHAMUD : [id number] : 1985 Gender : Female Race : ORD : [id number] Procedure Date : Jul 17 2024 14:18:49 Edit Date : Jul 18 2024 08:56:32 Diagnosis: SINUS RHYTHM WITH MARKED SINUS ARRHYTHMIA POSSIBLE INFERIOR MYOCARDIAL INFARCTION , AGE UNDETERMINED ABNORMAL ECG Confirmed by MD JUAN GREGORY () on 07/18/2024 8:56:32 AM Test Reason : R07.9 Chest pain, unspecified type Location : 521 : [place] Overread By : MD JUAN GREGORY Edited By : MD JUAN GREGORY Referred By : SELF, Acquired by : Dar [facility]endez [facility] Telephone (UCTR) PATI MOHAMUD Mary ([id number]) 1985 F Date Time Provider Department 07/15/24 BARAK ROWLEY [facility] During your visit today, we recorded the following information about you: Barak Rowley MD 07/15/2024 8:37 AM Signed Vaginal swab positive for bacterial vaginosis. Prescription for Flagyl sent to the pharmacy. Negative for yeast and trichomonas. Rehana Lazaro LPN 07/15/2024 8:49 AM Signed Patient notified.Rehana Lazaro LPN Allergies As of Date: 07/15/2024 (No Known Allergies) Date Reviewed: 07/14/2024 Reviewed by: Gail Alves MA - Fully Assessed Reason for Visit: Results [95] Cmt: BV+ Order(s):metroNIDAZO LE (FLAGYL) 500 mg tabletTake 1 tablet by mouth two times a day for 7 days.Disp: 14 tabletRfl: 0 Prescriptions as of 07/15/2024 - metroNIDAZOLE (FLAGYL) 500 mg tablet Take 1 tablet by mouth two times a day for 7 days. - nystatin (MYCOSTATIN) cream Apply to affected area two times a day for 14 days. - fluconazole (DIFLUCAN) 150 mg tablet Take 1 tablet by mouth once daily for 1 day. - dupilumab (DUPIXENT PEN) 300 mg/2 mL pen injection Inject 300 mg subcutaneously every 2 weeks. - LORazepam (ATIVAN) 0.5 mg Take 1 mg by mouth once daily as needed. Problem List As Of Date 07/15/2024 Noted Resolved Premature rupture of membranes [O42.90] 10/01/2017 02/10/2018 Vaginal bleeding [N93.9] 10/01/2017 02/10/2018 Adjustment disorder with mixed anxiety and depr*03/18/2018 Obesity, Class II, BMI 35-39.9 [E66.812] 03/01/2022 Obesity, Class III, BMI >= 40 [E66.01] 04/07/2022 Prescriptions ordered this encounter Disp Refills Start End METRONIDAZOLE 500 MG TABLET 14 t* 0 07/15/2024 07/22/2024 Route: ORAL Sig: Take 1 tablet by mouth two times a day for 7 days. Medications Discontinued During This Encounter Prescriptions - benzonatate (TESSALON PERLE) 100 mg capsule (Discontinued) Reported on 07/14/2024 - albuterol HFA (PROVENTIL HFA, VENTOLIN HFA) 90 mcg/actuation inhaler (Discontinued) Reported on 07/14/2024 - ergocalciferol 50,000 unit capsule (VITAMIN D2, DRISDOL) (Discontinued) Reported on 07/14/2024 - pantoprazole DR (PROTONIX) 20 mg tablet (Discontinued) Reported on 07/14/2024 Encounter Status:Closed by REHANA LAZARO on 07/15/24 Normal [facility] BACTERIAL VAGINOSIS NAATon 1 Lactobacillus crispatus+gasseri+jense geovanni + Gardnerella vaginalis + Atopobium vaginae rRNA DERECK+probe Ql (Vag fld) Detected Abnormal Not detected [facility] Comment on above: Order Comment: Speci men Type: SWAB Ordering Facility: [facility] Address: [address] [place] [address] Performed By: #### B VAMP, CVTV #### [facility] CLIA [id number] [address] [place] [address] [place] Bacteria Ur Culton 4 Bacteria identified Cx Nom (U) ORGANISM ID: 1 10,000 -<50,000 CFU/ml Normal urogenital colby Normal [facility] Comment on above: Performed By: #### 6 30-4 ####[facility] [id number] [place] [address] [place] EZE/TRICHOMONAS NAATon 1 C. glabrata RNA DERECK+probe Ql (Vag fld) Not detected Normal Not detected [facility] Comment on above: Order Comment: Speci men Type: SWAB Ordering Facility: [facility] Address: [address] [place] [address] Performed By: #### B VAMP, CVTV #### [facility] CLIA [id number] [address] [place] [address] [place] Eze sp DNA DERECK+probe Ql (Vag fld) Not detected Normal Not detected [facility] Comment on above: Order Comment: Speci men Type: SWAB Ordering Facility: [facility] Address: [address] [place] [address] Result Comment: The Eze species group target includes C. albicans, C. tropicalis, C. parapsilosis, and C. dubliniensis. Performed By: #### Paige VAMP, CVTV #### [facility] CLIA [id number] [address] [place] [address] [place] T. vaginalis DNA DERECK+probe Ql (Unsp spec) Not detected Normal Not detected [facility] Comment on above: Order Comment: Speci men Type: SWAB Ordering Facility: [facility] Address: [address] [place] [address] Performed By: #### B VAMP, CVTV #### [facility] CLIA [id number] [address] [place] [address] [place] CNOVon 07-14-2024 CNOV Office Visit (UCWSTR) CADEPATI ([id number]) 1985 F Date Time Provider Department 07/14/24 8:45 AM JIMENEZ OLIVAREZ WS During your visit today, we recorded the following information about you: Temperature Pulse Respiration Blood pressure 98.1 degrees 94/minute 16/minute 126/80 Weight 117.7 kg Jimenez Olivarez APRN.[facility] 07/14/2024 8:52 AM Signed CC: Patient presents with: Vaginal Problem: itching and burning, on pcn for 2 weeks for dental issues HPI Pati Hernandez Cade is a 38 year old female who presents with complaint of possible UTI. These symptoms have been present for few days. Associated symptoms: burning and vaginal itching Denies: fever, chills, sweats, abdominal pain, and flank pain Treatments: nothing The ROS was otherwise negative. PMH, Medications, labs, allergies, and recent past visits with PCP were reviewed and updated as able. PHYSICAL EXAM: BP 126/80 Pulse 94 Temp 36.7 ?C (98.1 ?F) Resp 16 Wt 117.7 kg (259 lb 7.7 oz) LMP 07/30/2023 (Approximate) SpO2 97% BMI 41.90 kg/m? General: Well appearing and alert CV: Regular rate and rhythm without obvious murmur Lungs: clear to auscultation bilaterally Back: straight and symmetric Abdomen: mild tenderness on lower abdoman PAST MEDICAL HISTORY Diagnosis Date Anemia Morbid obesity (HCC) PAST SURGICAL HISTORY Procedure Laterality Date 48 HOUR PH STUDY 06/11/2013 mild acid reflux disease ANESTH, SECTION 2005, 2010twice CHOLECYSTECTOMY COLONOSCOPY 11/25/2012 normal EGD 10/08/2012 Schatzki's ringt, hiatal hernia, 2 small benign gastric polyps EMS PROCEDURE 06/11/2013 low LES pressures with normal relaxation response to a wet swallow with normal esophageal body motility HIATAL HERNIA REPAIR HX ORAL SURGERY PROCEDURE REMOVAL OF ANAL FISSURE 04/07/2022 ALLERGIES Patient has no known allergies. MEDICATIONS dupilumab (DUPIXENT PEN) 300 mg/2 mL pen injection Inject 300 mg subcutaneously every 2 weeks. LORazepam (ATIVAN) 0.5 mg Take 1 mg by mouth once daily as needed. nystatin (MYCOSTATIN) cream Apply to affected area two times a day for 14 days. fluconazole (DIFLUCAN) 150 mg tablet Take 1 tablet by mouth once daily for 1 day. ergocalciferol 50,000 unit capsule (VITAMIN D2, DRISDOL) Take 1 capsule by mouth one time a week. (Patient not taking: Reported on 07/14/2024) pantoprazole DR (PROTONIX) 20 mg tablet Take 1 tablet by mouth daily before breakfast. Take on empty stomach, 1/2 hr before meal. (Patient not taking: Reported on 07/14/2024) benzonatate (TESSALON PERLE) 100 mg capsule Take 1 capsule by mouth three times a day as needed. (Patient not taking: Reported on 07/14/2024) albuterol HFA (PROVENTIL HFA, VENTOLIN HFA) 90 mcg/actuation inhaler Inhale 2 Puffs as instructed every 4 hours as needed for wheezing/shortness of breath. (Patient not taking: Reported on 07/14/2024) FAMILY HISTORY Family history unknown: Yes Social History Tobacco Use Smoking status: Every Day Current packs/day: 0.00 Types: Cigarettes Last attempt to quit: 05/2017 Years since quittin.1 Smokeless tobacco: Never Vaping Use Vaping status: Never Used Substance Use Topics Alcohol use: No Drug use: No ASSESSMENT/PLAN: 1. Vaginal itching - ICD9: 698.1, ICD10: N89.8 - UA DIP, URINE (POC) - URINE CULTURE - EZE/TRICHOMONAS NAAT - BACTERIAL VAGINOSIS NAAT - NYSTATIN 100,000 UNIT/GRAM TOPICAL CREAM - FLUCONAZOLE 150 MG TABLET Self swabbed Prescription instructions reviewed with patient as applicable. Potential red flag symptoms discussed with the patient. Reviewed appropriate action plan to take if red flag symptoms occur. Patient agreeable to treatment plan. Also said that her hiatal hernia seems to be acting up several times a day now instead of once a month. Told her to follow up with PCP for this issue. Jimenez Olivarez APRN.[facility] Allergies As of Date: 07/14/2024 (No Known Allergies) Date Reviewed: 07/14/2024 Reviewed by: Gail Alves MA - Fully Assessed Reason for Visit: Vaginal Problem [117] Cmt: itching and burning, on pcn for 2 weeks for dental issues Primary Visit Diagnosis:Vaginal itching [N89.8] Order(s):UA DIP, URINE (POC) [3097693] Order #: [id number]. #:[id number] URINE CULTURE [SQURCUL] Order #: [id number]. #:[id number] EZE/TRICHOMONAS NAAT [SQCVTV] Order #: [id number]. #:[id number] BACTERIAL VAGINOSIS NAAT [SQBVAMP] Order #: [id number]. #:[id number] nystatin (MYCOSTATIN) creamApply to affected area two times a day for 14 days.Disp: 30 gRfl: 0 fluconazole (DIFLUCAN) 150 mg tabletTake 1 tablet by mouth once daily for 1 day.Disp: 1 tabletRfl: 0 Prescriptions as of 07/14/2024 - nystatin (MYCOSTATIN) cream Apply to affected area two times a day for 14 days. - fluconazole (D (more content not included)... Normal [facility] UA DIP, URINE (POC)on 2023 BILIRUBIN UA (POCT) Negative Negative [facility] CLARITY UA (POCT) Clear [facility] COLOR UA (POCT) Yellow [facility] GLUCOSE UA (POCT) Negative Negative mg/dL [facility] Hemoglobin Ql (U) Negative Negative [facility] KETONE UA (POCT) Negative Negative mg/dL [facility] LEUKOCYTES UA (POCT) Negative Negative [facility] NITRITE UA (POCT) Negative Negative [facility] PH UA (POCT) 7.0 4.5 - 8.0 [facility] Protein Ql (U) Negative Negative mg/dL [facility] SPECIFIC GRAVITY UA (POCT) 1.025 1.005 - 1.030 [facility] UROBILINOGEN UA (POCT) 0.2 Eduarda l E.U./dL [facility] Location:[facility], [address] [facility], [place], [address] [facility] POINT OF CARE [facility] Charisse 07-07-2024 [facility] Telephone (KRISTIN) FANNY MOHAMUDICA Mary ([id number]) 1985 F Date Time Provider Department 07/07/24 LANEY HUNTER During your visit today, we recorded the following information about you: Juvencio Montgomery LPN 07/07/2024 3:27 PM Signed Received ed visit summary from [facility]. Placed in provider's inbox for review. Route to MA scanning Allergies As of Date: 07/07/2024 (No Known Allergies) Date Reviewed: 08/22/2023 Reviewed by: Breanna Mendez LPN - Fully Assessed Reason for Visit: Received Outside Medical Records [[id number]] Cmt: [facility] ED Prescriptions as of 07/07/2024 - ergocalciferol 50,000 unit capsule (VITAMIN D2, DRISDOL) Take 1 capsule by mouth one time a week. - dupilumab (DUPIXENT PEN) 300 mg/2 mL pen injection Inject 300 mg subcutaneously every 2 weeks. - pantoprazole DR (PROTONIX) 20 mg tablet Take 1 tablet by mouth daily before breakfast. Take on empty stomach, 1/2 hr before meal. - benzonatate (TESSALON PERLE) 100 mg capsule Take 1 capsule by mouth three times a day as needed. - albuterol HFA (PROVENTIL HFA, VENTOLIN HFA) 90 mcg/actuation inhaler Inhale 2 Puffs as instructed every 4 hours as needed for wheezing/shortness of breath. - LORazepam (ATIVAN) 0.5 mg Take 1 mg by mouth once daily as needed. Problem List As Of Date 07/07/2024 Noted Resolved Premature rupture of membranes [O42.90] 10/01/2017 02/10/2018 Vaginal bleeding [N93.9] 10/01/2017 02/10/2018 Adjustment disorder with mixed anxiety and depr*03/18/2018 Obesity, Class II, BMI 35-39.9 [E66.812] 03/01/2022 Obesity, Class III, BMI >= 40 [E66.01] 04/07/2022 Encounter Status:Closed by JUVENCIO MONTGOMERY on 07/07/24 Normal [facility] Emergency Department Summary on 07-05-2024 Emergency Department Summary [facility] Medical Records Department [address] [place] [address] Emergency Department Summary 07/05/24 MR#: [id number] Acct: [id number] Name: PATI MOHAMUD Rep #: [id number] : 1985 38 From: Jayant Astudillo MD PCP: Dr. Richard Hunter MD Status:REG ER Location: ED HPI History of Present Illness Chief Complaint: Dental Narrative Narrative: Patient is a 38-year-old female with no significant ankle history presents to the emergency department with complaints of tooth pain to the right lower jaw. Patient states on Sunday this last week, she had a cleaning with her dentist. The next day, she had pain to the right premolar on her right lower jaw. Patient complains of nausea, fevers at home. [facility] Medical History Fibromyalgia Hemorrhoids Acid reflux Constipation Diarrhea Nausea and vomiting Anxiety Hypokalemia Dehydration 15 weeks gestation of Threatened in second trimester Gastroenteritis Home Medications ???Medication ???Instructions ???Recorded ???Last Taken ???Type amitriptyline 10 mg tablet 10 mg PO DAILY 12/02/20 Unknown History duloxetine 20 mg capsule,delayed 20 mg PO DAILY 12/02/20 Unknown History release (Cymbalta) dupilumab 300 mg/2 mL subcutaneous 300 mg subcut QWEEK 12/02/20 Unknown History pen injector (Dupixent) hydroxyzine HCl 25 mg tablet 25 mg PO DAILY 12/02/20 Unknown History naproxen 500 mg tablet (Naprosyn) 500 mg PO BID #20 tabs 12/02/20 Unknown Rx omeprazole magnesium 20 mg 20 mg PO DAILY 12/02/20 Unknown History tablet,delayed release (Prilosec OTC) hydrocortisone 1 %-pramoxine 1 % 1 applic [place] BID PRN hemorrhoids 01/09/22 Unknown Rx rectal foam (Proctofoam HC) #10 grams lidocaine 4 % topical gel 1 applic topical TID PRN pain #30 01/09/22 Unknown Rx grams hydrocortisone 2.5 % topical cream 1 applic [place] DAILY PRN hemorrhoids 02/10/22 Unknown Rx with perineal applicator #30 grams (Anusol-HC) hydrocodone-homatrop ine 5 mg-1.5 5 ml PO 4X/DAY PRN PRN cough 7 02/24/23 Unknown Rx mg/5 mL (5 mL) oral syrup (Hycodan) days #140 mL prednisone 20 mg tablet 40 mg (2 x 20 mg) PO DAILY 5 days 02/24/23 Unknown Rx #10 tabs ondansetron 4 mg disintegrating 4 mg PO Q8H PRN nausea and 12/26/23 Unknown Rx tablet vomiting #12 tabs naproxen 500 mg tablet (Naprosyn) 500 mg PO BID PRN pain #20 tabs 07/05/24 Unknown Rx penicillin V potassium 500 mg 500 mg PO 4X/DAY #40 tabs 07/05/24 Unknown Rx tablet Allergy/AdvReac Type Severity Reaction Status Date / Time No Known Allergies Allergy Verified 07/05/24 19:37 Family History Father Thyroid disorder Surgical History H/O: History of cholecystectomy Social History Smoking Status: Never smoker alcohol intake: never substance use type: does not use ROS ROS ED ROS Narrative Constitutional: Negative for fever, chills, weight loss, weakness Eyes: Negative for vision loss, vision change, double vision ENT: Negative for any sore throat, ear pain, congestion. Pain to the right lower jaw Cardiovascular: Negative for any chest pain, tightness, palpitations Respiratory: Negative for any cough, sputum production, hemoptysis, dyspnea, dyspnea on exertion, orthopnea Gastrointestinal: Negative for any abdominal pain, nausea, vomiting, diarrhea, constipation, blood in stool, blood in vomit : Negative for any urinary frequency, dysuria, retention, blood in urine Muscle skeletal: Negative for any neck pain, back pain Neurological: Negative for any headache, syncope, dizziness Skin: Negative for any rashes, itching, abrasions, lacerations Psychiatric: Negative for any depression, anxiety, stress, suicidal ideation, homicidal ideation Hematologic: Negative for any excessive bruising, easy bleeding EXAM Physical Exam Narrative Exam Narrative: Vital signs reviewed. HEET: Head normocephalic atraumatic, TMs clear bilaterally. Posterior pharynx is clear, moist mucous membranes. Nares clear bilaterally. No trismus. Patient does have discolored tooth to the right lower premolar, she states this is new. There is no drainable abscess. There is no evidence of any deep tissue infection. Neck: Supple with no lymphadenopathy or tenderness. No signs of meningismus. Cardiac: Regular rate and rhythm no murmurs gallops or rubs, equal peripheral pulses bilaterally. Respiratory: Lungs clear to auscultation bilaterally. No chest tenderness. Abdomen: Soft, nontender, nondistended. No abdominal bruit or pulsatile masses. No hepatosplenomegaly Extremities: No peripheral edema, no signs of gross trauma or deformity. Active (more content not included)... Normal [facility] 12 Lead EKGon 12-26-2023 12 Lead EKG [facility] [address] [place] [address] 12 Lead EKG 12/26/23 1119 MR#: [id number] Acct: [id number] Name: PATI MOHAMUD Rep #: [id number] : 1985 38 From: Yao Arroyo MD Attending Dr: Status: DEP ER Ordering Dr: Jesus Meza MD Date: 12/26/23 Location: ED Sex: F C Admitted: Test Reason : Blood Pressure : / mmHG Vent. Rate : 085 BPM Atrial Rate : 085 BPM P-R Int : 168 ms QRS Dur : 090 ms QT Int : 374 ms P-R-T Axes : 041 -04 017 degrees QTc Int : 445 ms Normal sinus rhythm Normal ECG Confirmed by Yao Arroyo ([id number]), slot editor BLUE CANELA ([id number]) on 12/27/2023 9:44:02 AM Referred By: SAGAR Confirmed By:Yao Arroyo 12/27/23 0944 Date Yao Arroyo MD CC: Dr. Jesus Meza MD; Dr. Richard Hunter MD Signed Normal [facility] CBC W/Diff, Automatedon 12-14 Absolute Lymph 1.77 X10 3/uL Normal 0.83-4.51 [facility] Comment on above: Performed By: #### L 501.5425, L100.0100, L300.8000, L501.2450, L500.4050 #### [facility] [address] [place], [address] Absolute Neut 4.0 X10 3/uL Normal 2.0-7.7 [facility] Comment on above: Performed By: #### L 501.5425, L100.0100, L300.8000, L501.2450, L500.4050 #### [facility] [address] [place], [address] Basophils/100 WBC (Bld) 0.5 % Normal 0-1 [facility] Comment on above: Performed By: #### L 501.5425, L100.0100, L300.8000, L501.2450, L500.4050 #### [facility] [address] [place], [address] Eosinophils/100 WBC (Bld) 0.8 % Normal 0-5 [facility] Comment on above: Performed By: #### L 501.5425, L100.0100, L300.8000, L501.2450, L500.4050 #### [facility] [address] [place], [address] Erythrocyte distribution width (RBC) [Ratio] 17.2 % High 11.6-14.6 [facility] Comment on above: Performed By: #### L 501.5425, L100.0100, L300.8000, L501.2450, L500.4050 #### [facility] [address] [place], [address] Hematocrit (Bld) [Volume fraction] 31.6 % Low 37-47 [facility] Comment on above: Performed By: #### L 501.5425, L100.0100, L300.8000, L501.2450, L500.4050 #### [facility] [address] [place], [address] Hemoglobin (Bld) [Mass/Vol] 9.6 g/dL Low 12.0-15.0 [facility] Comment on above: Performed By: #### L 501.5425, L100.0100, L300.8000, L501.2450, L500.4050 #### [facility] [address] [place], [address] IG% 0.300 Normal 0.0-0.9 [facility] Comment on above: Result Comment: IG% - Immature Granulocytes (promyelocytes, myelocytes and metamyelocytes) > 1% indicates that a LEFT SHIFT is Present. Performed By: #### L 501.5425, L100.0100, L300.8000, L501.2450, L500.4050 #### [facility] [address] [place], [address] Lymphocytes/100 WBC (Bld) 28.6 % Normal 19-41 [facility] Comment on above: Performed By: #### L 501.5425, L100.0100, L300.8000, L501.2450, L500.4050 #### [facility] [address] [place], [address] MCH (RBC) [Entitic mass] 22.6 pg Low 27.0-32.0 [facility] [facility] Comment on above: Performed By: #### L 501.5425, L100.0100, L300.8000, L501.2450, L500.4050 #### [facility] [address] [place], [address] MCHC (RBC) [Mass/Vol] 30.4 g/dL Low 32-36 [facility] Comment on above: Performed By: #### L 501.5425, L100.0100, L300.8000, L501.2450, L500.4050 #### [facility] [address] [place], [address] MCV (RBC) [Entitic vol] 74.5 fL Low 81-99 [facility] Comment on above: Performed By: #### L 501.5425, L100.0100, L300.8000, L501.2450, L500.4050 #### [facility] [address] [place], [address] Monocytes/100 WBC (Bld) 5.8 % Normal 0-10 [facility] Comment on above: Performed By: #### L 501.5425, L100.0100, L300.8000, L501.2450, L500.4050 #### [facility] [address] [place], [address] Neutrophils/100 WBC (Bld) 64.0 % Normal 47-70 [facility] Comment on above: Performed By: #### L 501.5425, L100.0100, L300.8000, L501.2450, L500.4050 #### [facility] [address] [place], [address] Nucleated RBC (Bld) [#/Vol] 0 10*3/uL Normal 0-5 [facility] Comment on above: Performed By: #### L 501.5425, L100.0100, L300.8000, L501.2450, L500.4050 #### [facility] [address] [place], [address] Platelet mean volume (Bld) [Entitic vol] 10.2 fL Normal 6.2-12.0 [facility] Comment on above: Performed By: #### L 501.5425, L100.0100, L300.8000, L501.2450, L500.4050 #### [facility] [address] [place], [address] Platelets (Bld) [#/Vol] 274 10*3/uL Normal 150-450 [facility] Comment on above: Performed By: #### L 501.5425, L100.0100, L300.8000, L501.2450, L500.4050 #### [facility] [address] [place], [address] RBC (Bld) [#/Vol] 4.24 10*6/uL Normal 4.2-5.4 [facility] Comment on above: Performed By: #### L 501.5425, L100.0100, L300.8000, L501.2450, L500.4050 #### [facility] [address] [place], [address] RDW SD 45.7 fl High 35.1-43.9 [facility] Comment on above: Performed By: #### L 501.5425, L100.0100, L300.8000, L501.2450, L500.4050 #### [facility] [address] [place], [address] WBC (Bld) [#/Vol] 6.2 10*3/uL Normal 4.4-11.0 [facility] Comment on above: Performed By: #### L 501.5425, L100.0100, L300.8000, L501.2450, L500.4050 #### [facility] [address] [place], [place], [address] CTA Chest W/WO Contraston CTA Chest W/WO Contrast [facility] Imaging Services [address] [place] [address] CTA Chest W/WO Contrast MR#: [id number] Acct: [id number] Name: PATI MOHAMUD Rep #: [id number] : 1985 F 38 From: Rodrigo hoover MD PCP: Dr. Richard Hunter MD Status: [facility] ER Study: CTA Chest W/WO Contrast Date of Exam: 12/26/23 Exam# [id number] Ordering Dr: Jesus Meza MD [id number] STUDY: CTA CHEST REASON FOR EXAM: Female, 38 years old. Elevated D dimer RADIATION DOSAGE (If Supplied By Facility): CTDIvol = ( 11.47 ) mGy, DLP = ( 490.28 ) mGycm TECHNIQUE: The examination was performed with the intravenous administration of IV 100mL Isovue-300. Post-processing of the angiographic images was performed, with multiplanar reformation and 3D reconstruction. Individualized dose optimization techniques were used for this CT. COMPARISON: Comparison is made with prior chest radiograph done earlier in the day. FINDINGS: Normal enhancement of the main pulmonary artery and right and left pulmonary arteries. Normal enhancement of the bilateral peripheral pulmonary arteries. There is no demonstrated pulmonary embolism. Normal thoracic aorta and visualized great vessels. There is no demonstrated aortic dissection. Normal heart and pericardium. Normal mediastinum. Normal hilar regions. Normal visualized trachea and bronchi. The lungs are well expanded. Normal pulmonary parenchyma. Normal pleura. Normal chest wall structures. Normal osseous structures. Small hiatal hernia. CT/CTA Chest W/WO Contrast IMPRESSION: Normal CTA chest examination, without a demonstrated pulmonary embolism or arterial dissection. Electronically Signed: Rodrigo Lieberman MD at 12:56 EDT , CC: Dr. Jesus Meza MD; Dr. Richard Hunter MD Coding Clerk: Signed Normal [facility] Chest 1 View (Portable)on Chest 1 View (Portable) [facility] Imaging Services [address] [place] [address] Chest 1 View (Portable) MR#: [id number] Acct: [id number] Name: PATI MOHAMUD Rep #: [id number] : 1985 F 38 From: Rodrigo hoover MD PCP: Dr. Richard Hunter MD Status: REG ER Study: Chest 1 View (Portable) Date of Exam: 12/26/23 Exam# [id number] Ordering Dr: Jesus Meza MD [id number] STUDY: X-RAY CHEST REASON FOR EXAM: Female, 38 years old. Chest pain TECHNIQUE: Single AP portable view of the chest. COMPARISON: Comparison is made with prior study February 24, 2023. FINDINGS: EKG electrodes are seen. The lungs are clear and expanded. There is no demonstrated pleural abnormality. Normal size heart. Normal mediastinum and cristiana. Normal visualized pulmonary arteries. Normal visualized aortic arch and descending thoracic aorta. Normal visualized thoracic spine. Normal visualized ribs, clavicles, and shoulders. There is no demonstrated abnormality of the visualized soft tissue structures of the upper abdomen. RAD/Chest 1 View (Portable) IMPRESSION: Normal x-ray examination of the chest. Electronically Signed: Rodrigo Lieberman MD at 12:07 EDT , CC: Dr. Jesus Meza MD; Dr. Richard Hunter MD Coding Clerk: Signed Normal [facility] Comprehensive Metabolic Prof ilon 12-26-2023 Albumin [Mass/Vol] 3.8 g/dL Normal 3.2-5.0 [facility] Comment on above: Order Comment: 1 Y Performed By: #### L 501.5425, L100.0100, L300.8000, L501.2450, L500.4050 #### [facility] [address] [place], [address] Albumin/Globulin [Mass ratio] 1.1 {ratio} Normal 0.9-2.4 [facility] Comment on above: Order Comment: 1 Y Performed By: #### L 501.5425, L100.0100, L300.8000, L501.2450, L500.4050 #### [facility] [address] [place], [address] ALK P 78 U/L Normal 45-117 [facility] Comment on above: Order Comment: 1 Y Performed By: #### L 501.5425, L100.0100, L300.8000, L501.2450, L500.4050 #### [facility] [address] [place], [address] ALT [Catalytic activity/Vol] 20 U/L Normal 13-56 [facility] Comment on above: Order Comment: 1 Y Performed By: #### L 501.5425, L100.0100, L300.8000, L501.2450, L500.4050 #### [facility] [address] [place], [address] AST [Catalytic activity/Vol] 9 U/L Low 15-37 [facility] Comment on above: Order Comment: 1 Y Performed By: #### L 501.5425, L100.0100, L300.8000, L501.2450, L500.4050 #### [facility] [address] [place], [address] Bilirubin [Mass/Vol] 0.40 mg/dL Normal 0.20-1.00 [facility] Comment on above: Order Comment: 1 Y Result Comment: For patients on eltrombopag therapy, use of Dimension [place] TBIL is not recommended. Performed By: #### L 501.5425, L100.0100, L300.8000, L501.2450, L500.4050 #### [facility] [address] [place], [address] BUN/CRE 19.7 RATIO Normal 10-20 [facility] Comment on above: Order Comment: 1 Y Performed By: #### L 501.5425, L100.0100, L300.8000, L501.2450, L500.4050 #### [facility] [address] [place], [address] CA,Total 8.7 mg/dL Normal 8.5-10.1 [facility] Comment on above: Order Comment: 1 Y Performed By: #### L 501.5425, L100.0100, L300.8000, L501.2450, L500.4050 #### [facility] [address] [place], [address] Chloride [Moles/Vol] 109 mmol/L High 98-107 [facility] Comment on above: Order Comment: 1 Y Performed By: #### L 501.5425, L100.0100, L300.8000, L501.2450, L500.4050 #### [facility] [address] [place], [address] CO2 [Moles/Vol] 23.0 mmol/L Normal 21.0-32.0 [facility] Comment on above: Order Comment: 1 Y Performed By: #### L 501.5425, L100.0100, L300.8000, L501.2450, L500.4050 #### [facility] [address] [place], [address] Creatinine [Mass/Vol] 0.71 mg/dL Normal 0.55-1.02 [facility] Comment on above: Order Comment: 1 Y Result Comment: The validity of the calculated GFR GFRAA in patients over 70 years has not been determined. Clinical correlation is essential. Performed By: #### L 501.5425, L100.0100, L300.8000, L501.2450, L500.4050 #### [facility] [address] [place], [address] ECRCL 138.87 ml/min Normal [facility] Comment on above: Order Comment: 1 Y Performed By: #### L 501.5425, L100.0100, L300.8000, L501.2450, L500.4050 #### [facility] [address] [place], [address] EST GFR - AA 120 mL/min Normal >60 [facility] Comment on above: Order Comment: 1 Y Result Comment: Afri can [place] GFR Calc Performed By: #### L 501.5425, L100.0100, L300.8000, L501.2450, L500.4050 #### [facility] [address] [place], [address] GAP 4 Low 5-15 [facility] Comment on above: Order Comment: 1 Y Performed By: #### L 501.5425, L100.0100, L300.8000, L501.2450, L500.4050 #### [facility] [address] [place], [address] GFR/1.73 sq M.predicted among non-blacks MDRD (S/P/Bld) [Vol rate/Area] 99 mL/min/{1.73_m2} Normal >60 [facility] Comment on above: Order Comment: 1 Y Result Comment: Non- GFR Calc Performed By: #### L 501.5425, L100.0100, L300.8000, L501.2450, L500.4050 #### [facility] [address] [place], [address] Globulin (S) [Mass/Vol] 3.5 g/dL Normal 2.2-4.2 [facility] Comment on above: Order Comment: 1 Y Performed By: #### L 501.5425, L100.0100, L300.8000, L501.2450, L500.4050 #### [facility] [address] [place], [address] Glucose [Mass/Vol] 98 mg/dL Normal 74-106 [facility] Comment on above: Order Comment: 1 Y Performed By: #### L 501.5425, L100.0100, L300.8000, L501.2450, L500.4050 #### [facility] [address] [place], [address] Potassium [Moles/Vol] 3.7 mmol/L Normal 3.5-5.1 [facility] Comment on above: Order Comment: 1 Y Performed By: #### L 501.5425, L100.0100, L300.8000, L501.2450, L500.4050 #### [facility] [address] [place], [address] Sodium [Moles/Vol] 136 mmol/L Normal 136-145 [facility] Comment on above: Order Comment: 1 Y Performed By: #### L 501.5425, L100.0100, L300.8000, L501.2450, L500.4050 #### [facility] [address] [place], [address] T PROT 7.3 g/dL Normal 6.4-8.2 [facility] Comment on above: Order Comment: 1 Y Performed By: #### L 501.5425, L100.0100, L300.8000, L501.2450, L500.4050 #### [facility] [address] [place], [address] Urea nitrogen [Mass/Vol] 14 mg/dL Normal 7-18 [facility] Comment on above: Order Comment: 1 Y Performed By: #### L 501.5425, L100.0100, L300.8000, L501.2450, L500.4050 #### [facility] [address] [place], [address] D-Dimer Quantitative (DVT/PE )on 12-26-2023 D-DIMER QUANT 0.89 FEU/ug/m Invalid Interpretation Code 0.27-0.49 [facility] Comment on above: Result Comment: D-Di charley ELEVATED (>0.49): Additional studies and clinical assessments are indicated to conclude diagnosis of: Deep Vein Thrombosis (DVT) or Pulmonary Embolism (PE) CRITICAL VALUE VERIFIED. CALLED TO BERNABE JACOBSON RN (ER) 12/26/23 1201 [address]. RESULTS READ BACK BY SAME. Performed By: #### L 501.5425, L100.0100, L300.8000, L501.2450, L500.4050 #### [facility] [address] [place], [address] Emergency Department Summary on 12-26-2023 Emergency Department Summary [facility] Medical Records Department [address] [place] [address] Emergency Department Summary 12/26/23 MR#: [id number] Acct: [id number] Name: PATI MOHAMUD Rep #: [id number] : 1985 38 From: Jesus Meza MD PCP: Dr. Richard Hunter MD Status:DEP ER Location: ED HPI History of Present Illness Chief Complaint: Chest Pain Narrative Narrative: 38-year-old female who denies significant past medical history, presents with chest pain that she has had for the last 1 to 2 days. 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 She has had chest pain in the past which usually resolves after an hour. She states she has had relatively constant midsternal chest pain and pressure but also right-sided sharp and stabbing pain. She endorses nausea and vomiting, but no problems with bowel movements. No fevers or chills but she has felt flushed and hot and occasionally cold at times. She does endorse family history of early coronary artery disease but is unsure because she does not have a good relationship with her father who reportedly may have had a heart attack at an earlier age. She denies any exacerbating or alleviating factors. [facility] Medical History Fibromyalgia Hemorrhoids Acid reflux Constipation Diarrhea Nausea and vomiting Anxiety Hypokalemia Dehydration 15 weeks gestation of Threatened in second trimester Gastroenteritis Home Medications ???Medication ???Instructions ???Recorded ???Last Taken ???Type amitriptyline 10 mg tablet 10 mg PO DAILY 12/02/20 Unknown History duloxetine 20 mg capsule,delayed 20 mg PO DAILY 12/02/20 Unknown History release (Cymbalta) dupilumab 300 mg/2 mL subcutaneous 300 mg subcut QWEEK 12/02/20 Unknown History pen injector (Dupixent) hydroxyzine HCl 25 mg tablet 25 mg PO DAILY 12/02/20 Unknown History naproxen 500 mg tablet (Naprosyn) 500 mg PO BID #20 tabs 12/02/20 Unknown Rx omeprazole magnesium 20 mg 20 mg PO DAILY 12/02/20 Unknown History tablet,delayed release (Prilosec OTC) hydrocortisone 1 %-pramoxine 1 % 1 applic [place] BID PRN hemorrhoids 01/09/22 Unknown Rx rectal foam (Proctofoam HC) #10 grams lidocaine 4 % topical gel 1 applic topical TID PRN pain #30 01/09/22 Unknown Rx grams hydrocortisone 2.5 % topical cream 1 applic [place] DAILY PRN hemorrhoids 02/10/22 Unknown Rx with perineal applicator #30 grams (Anusol-HC) hydrocodone-homatrop ine 5 mg-1.5 5 ml PO 4X/DAY PRN PRN cough 7 02/24/23 Unknown Rx mg/5 mL (5 mL) oral syrup (Hycodan) days #140 mL prednisone 20 mg tablet 40 mg (2 x 20 mg) PO DAILY 5 days 02/24/23 Unknown Rx #10 tabs ondansetron 4 mg disintegrating 4 mg PO Q8H PRN nausea and 12/26/23 Unknown Rx tablet vomiting #12 tabs Allergy/AdvReac Type Severity Reaction Status Date / Time No Known Allergies Allergy Verified 12/26/23 11:10 Family History Father Thyroid disorder Surgical History H/O: History of cholecystectomy Social History Smoking Status: Never smoker alcohol intake: never substance use type: does not use ROS ROS ED ROS Narrative Constitutional: No fever, no chills. HEENT: No sore throat. No neck pain. No loss of vision. No rhinorrhea. Cardiovascular: Positive midsternal to right-sided chest pain described as pressure but also still up and stabbing. No palpitations. No pedal edema. Respiratory: No cough, no shortness of breath. Abdominal: No abdominal pain. Positive nausea and vomiting Genitourinary: No dysuria. No hematuria. Musculoskeletal: No myalgias. No arthralgias. Neurologic: No headaches. No dizziness. No lightheadedness. Skin: No rash. No change in color. Psychiatric: No depression. No anxiety. EXAM Physical Exam Narrative Exam Narrative: Afebrile. Vital signs noted. HEENT: Normocephalic. Atraumatic. PERRL, EOMI. Neck soft and supple. No point tenderness or step off. Cardiovascular: Regular rate and rhythm. No murmurs, rubs, or gallops appreciated. Respiratory: No tachypnea. Lungs clear to auscultation bilaterally. Gastrointestinal: Abdomen soft, nontender, with normoactive bowel sounds. No rebound or guarding. Neurological: Awake. Alert. Nonfocal, nonlateralizing. Skin: No rash. Normal color. No pallor. Musculoskeletal: No pedal edema. Full range of motion extremities. Const Vital Signs: 12/26/23 11:10 12/26/23 11:19 12/26/23 11:30 Temperature 97.1 F L Temperature Source Temporal Pulse Rate 89 84 Respiratory Rate 18 20 H Respiratory Effort Normal Non-Labored Blood Pressure 153/96 H 125/73 H (more content not included)... Normal [facility] L501.4020on 12-26-2023 TROPONIN-I HS < 3 Low 3.0-54.0 [facility] Comment on above: Result Comment: Abiola poon Note: New Test Units and Gender Specific Reference Ranges. For more information see Policy Stat Procedure [place] High Sensitivity Troponin (TNIH) and attachments. Performed By: #### L 501.4020 #### [facility] [address] [place], [place], [address] L501.5425on 12-26-2023 TROPONIN-I HS < 3 Low 3.0-54.0 [facility] Comment on above: Order Comment: 1Y Result Comment: Abiola poon Note: New Test Units and Gender Specific Reference Ranges. For more information see Policy Stat Procedure [place] High Sensitivity Troponin (TNIH) and attachments. Performed By: #### L 501.5425, L100.0100, L300.8000, L501.2450, L500.4050 ####[facility] [address] [place], [place], [address] Lipaseon 12-26-2023 Lipase [Catalytic activity/Vol] 31 U/L Normal 13-75 [facility] Comment on above: Order Comment: 1Y Result Comment: Abiola poon note: LIPASE revised reference range effective 22. New Lipase methodology. Expected to produce lower values than the previous assay method. NEW Reference Range: 13 - 75 U/L Performed By: #### L 501.5425, L100.0100, L300.8000, L501.2450, L500.4050 ####[facility] [address] [place], [place], [address] ,Serum,hCG Quali.on 12-26-2023 HCG, SERUM QUAL Negative Normal [facility] Comment on above: Performed By: #### L 700.6800 #### [facility] [address] [place], [address] FERRITIN BLDon 08-23-2023 Ferritin [Mass/Vol] 13.6 ng/mL Low 14.7 - 2 05.1 ng/mL [facility] Iron and Iron binding capaci ty panelon 08-23-2023 Iron [Mass/Vol] 13 ug/dL Low 41 - 186 ug/dL [facility] Iron binding capacity [Mass/Vol] 368 ug/dL 232 - 386 ug/dL [facility] Iron/TIBC [Molar ratio] 3.5 % Low 15.0 - 57.0 % [facility] T3 BLDon 08-23-2023 T3 [Mass/Vol] 91 ng/dL 79 - 165 ng/dL [facility] T4 FREE/FREE THYROXon 2023 Free T4 [Mass/Vol] 1.0 ng/dL 0.9 - 1.7 ng/dL [facility] CBC panel Auto (Bld)on 08-22 Erythrocyte distribution width (RBC) [Ratio] 17.5 % High 11.5 - 15.0 % [facility] Hematocrit (Bld) [Volume fraction] 34.2 % Low 36.0 - 46.0 % [facility] Hemoglobin (Bld) [Mass/Vol] 10.3 g/dL Low 11.5 - 15.5 g/dL [facility] MCH (RBC) [Entitic mass] 22.7 pg Low 26.0 - 34.0 pg [facility] MCHC (RBC) [Mass/Vol] 30.1 g/dL Low 30.5 - 36.0 g/dL [facility] MCV (RBC) [Entitic vol] 75.5 fL Low 80.0 - 100.0 fL [facility] Nucleated RBC (Bld) [#/Vol] <0.01 k/uL [facility] Platelet mean volume (Bld) [Entitic vol] 11.2 fL 9.0 - 12.7 fL [facility] Platelets (Bld) [#/Vol] 274 10*3/uL 150 - 400 k/uL [facility] RBC (Bld) [#/Vol] 4.53 10*6/uL 3.90 - 5.2 0 m/uL [facility] WBC (Bld) [#/Vol] 3.94 10*3/uL 3.70 - 11. 00 k/uL [facility] UA DIP, URINE (POC)on 2023 BILIRUBIN UA (POCT) Negative Negative [facility] CLARITY UA (POCT) Clear [facility] COLOR UA (POCT) Yellow [facility] GLUCOSE UA (POCT) Negative Negative mg/dL [facility] Hemoglobin Ql (U) Trace-intact Abnormal Negative [facility] KETONE UA (POCT) Trace Negative mg/dL [facility] LEUKOCYTES UA (POCT) Negative Negative [facility] NITRITE UA (POCT) Negative Negative [facility] PH UA (POCT) 6.0 4.5 - 8.0 [facility] Protein Ql (U) Trace Abnormal Negative mg/dL [facility] SPECIFIC GRAVITY UA (POCT) >=1.030 1.005 - 1.030 [facility] UROBILINOGEN UA (POCT) 0.2 E.U./dL Eduarda l E.U./dL [facility] XR Chest PA and Lateralon IMPRESSION: No acute radiographic abnormality. Coding Clerk: BINDU Transcribe Date/Time: Jul 04 2023 10:51A Dictated by : ALBANIA JACK MD This examination was interpreted and the report reviewed and electronically signed by: ALBANIA JACK MD on Jul 04 2023 10:51AM [facility] DIVISION OF RADIOLOGY * * *Final Report* * * DATE OF EXAM: Jul 04 2023 10:50AM WOX [id number] - XR CHEST 2V FRONTAL/LAT / PROCEDURE REASON: Cough present for greater than 3 weeks * * * * Physician Interpretation * * * * EXAMINATION: CHEST RADIOGRAPH (2 VIEW FRONTAL & LATERAL) CLINICAL HISTORY: Cough present for greater than 3 weeks MQ: XC2_6 EXAM DATE/TIME: 07/04/2023 10:50 AM COMPARISON: Chest x-ray on 01/27/2023 RESULT: Lines, tubes, and devices: None. Lungs and pleura: No consolidation. No lung mass. No pleural effusion. No pneumothorax. Cardiomediastinal silhouette: Normal cardiomediastinal silhouette. Bones and soft tissues: Unremarkable. DIVISION OF RADIOLOGY Provider, [facility] [place] - 07/04/2023 * * *Final Report* * * DATE OF EXAM: Jul 04 2023 10:50AM WOX [id number] - XR CHEST 2V FRONTAL/LAT / PROCEDURE REASON: Cough present for greater than 3 weeks * * * * Physician Interpretation * * * * EXAMINATION: CHEST RADIOGRAPH (2 VIEW FRONTAL & LATERAL) CLINICAL HISTORY: Cough present for greater than 3 weeks MQ: XC2_6 EXAM DATE/TIME: 07/04/2023 10:50 AM COMPARISON: Chest x-ray on 01/27/2023 RESULT: Lines, tubes, and devices: None. Lungs and pleura: No consolidation. No lung mass. No pleural effusion. No pneumothorax. Cardiomediastinal silhouette: Normal cardiomediastinal silhouette. Bones and soft tissues: Unremarkable. IMPRESSION IMPRESSION: No acute radiographic abnormality. Coding Clerk: [facility] Transcribe Date/Time: Jul 04 2023 10:51A Dictated by : ABLANIA JACK MD This examination was interpreted and the report reviewed and electronically signed by: ALBANIA JACK MD on Jul 04 2023 10:51AM EST [facility] Radiology Study observation (narrative) [facility] XR Chest PA and LateralOrder ed By: [facility] Provider on 07-04-2023 [facility] XR Chest PA and Lateralon IMPRESSION: No acute radiographic abnormality. Coding Clerk: [facility] Transcribe Date/Time: Jan 27 2023 8:30A Dictated by : ALBANIA JACK MD This examination was interpreted and the report reviewed and electronically signed by: ALBANIA JACK MD on Jan 27 2023 8:30AM EST DIVISION OF RADIOLOGY * * *Final Report* * * DATE OF EXAM: Jan 27 2023 8:10AM WOX 5291 - XR CHEST 2V FRONTAL/LAT / PROCEDURE REASON: SOB (shortness of breath) * * * * Physician Interpretation * * * * EXAMINATION: CHEST RADIOGRAPH (2 VIEW FRONTAL & LATERAL) CLINICAL HISTORY: SOB (shortness of breath) MQ: XC2_6 EXAM DATE/TIME: 01/27/2023 8:10 AM COMPARISON: Chest x-ray on 2020 RESULT: Lines, tubes, and devices: None. Lungs and pleura: No consolidation. No lung mass. No pleural effusion. No pneumothorax. Cardiomediastinal silhouette: Normal cardiomediastinal silhouette. Bones and soft tissues: Unremarkable. DIVISION OF RADIOLOGY Provider, [facility] [place] - 01/27/2023 * * *Final Report* * * DATE OF EXAM: Jan 27 2023 8:10AM WOX 5291 - XR CHEST 2V FRONTAL/LAT / PROCEDURE REASON: SOB (shortness of breath) * * * * Physician Interpretation * * * * EXAMINATION: CHEST RADIOGRAPH (2 VIEW FRONTAL & LATERAL) CLINICAL HISTORY: SOB (shortness of breath) MQ: XC2_6 EXAM DATE/TIME: 01/27/2023 8:10 AM COMPARISON: Chest x-ray on 2020 RESULT: Lines, tubes, and devices: None. Lungs and pleura: No consolidation. No lung mass. No pleural effusion. No pneumothorax. Cardiomediastinal silhouette: Normal cardiomediastinal silhouette. Bones and soft tissues: Unremarkable. IMPRESSION IMPRESSION: No acute radiographic abnormality. Coding Clerk: PSCB Transcribe Date/Time: Jan 27 2023 8:30A Dictated by : ALBANIA JACK MD This examination was interpreted and the report reviewed and electronically signed by: ALBANIA JACK MD on Jan 27 2023 8:30AM EST [facility] Radiology Study observation (narrative) [facility] X[facility] Chest PA and LateralOrder ed By: [facility] on 01-27-2023 [facility] STREP A MOLECULAR (POC)on Procedural Control Valid [facility] Strep A (POCT) Negative Negative [facility] Influenza virus A and B RNA and SARS-CoV-2 (COVID-19) N gene panel DERECK+probe (Resp)on 01-24-2023 FLUAV RNA DERECK+probe Ql (Unsp spec) Not detected Not Detected [facility] FLUBV RNA DERECK+probe Ql (Unsp spec) Not detected Not Detected [facility] SARS-CoV-2 (COVID-19) RNA DERECK+probe Ql (Resp) Not detected See comment [facility] STREP A MOLECULAR (POC)on Procedural Control Valid [facility] Strep A (POCT) Negative Negative [facility] ALLIED HEALTHon 02-13-2022 ALLIED HEALTH HNO ID: [id number] Author: RT Enoc(Loli) Service: Radiology Author Type: Monitor And Storage Bin Tender Type: Allied Health Filed: 02/13/2022 9:52 PM Note Text: Radiology Service Progress Note DATE OF SERVICE: February 13, 2022 TIME: 9:45 PM PATIENT IDENTITY VERIFICATION COMPLETED USING TWO (2) STANDARD IDENTIFIERS: Name and Date of confirmed by patient verbally and Name and Date of confirmed by identification band. FALL SCREENING: Has the patient had 2 falls in the last year or 1 fall with injury or currently using an Ambulatory Assistive Device (Walker, Cane, Wheelchair, Crutches, etc.)? Emergency Room Patient: Screened in ED PATIENT GENDER DATA: Female. status: : No status: NO. PATIENT RELEVANT IMPLANT DATA REVIEWED: Not Applicable ALLERGIES: Reviewed and unchanged CONTRAST ALLERGY: NO. EXAM: CT -CONTRAST INDUCED NEPHROPATHY RISK FACTORS: HTN CREATININE: Creatinine Date Value Ref Range Status 02/13/2022 0.77 0.51 - 0.95 mg/dL Final 05/03/2020 0.71 0.58 - 0.96 mg/dL Final 03/04/2013 0.73 0.51 - 0.95 mg/dL Final Estimated Glomerular Filtration Rate Date Value Ref Range Status 02/13/2022 104 >=60 mL/min/1.73m? Final Comment: Estimated Glomerular Filtration Rate (eGFR) is calculated using the 2020 CKD-EPI creatinine equation. This equation utilizes serum creatinine, sex, and age as parameters. The creatinine assay has traceable calibration to isotope dilution-mass spectrometry. Refer to KDIGO guidelines for clinical interpretation. In patients with unstable renal function, e.g. those with acute kidney injury, the eGFR may not accurately reflect actual GFR. eGFR- Date Value Ref Range Status 05/03/2020 >60 Final P.O.C.T. RESULTS: POC done: Yes, See Lab Tab February 13, 2022 TREATMENT: N/A PERIPHERAL IV DATA: Inpatient - refer to LDA documentation RADIOLOGY DEPARTMENT: CT; Exam(s) Completed: Abdomen/Pelvis SIGNATURE: RT Enoc(R) PATIENT NAME: Pati Bond DATE: February 13, 2022 TIME: 9:45 PM Normal [facility] APAP SerPl-mCncon 02-13-2022 Acetaminophen [Mass/Vol] ug/mL Low 10-30 [facility] Comment on above: Order Comment: Faina stewart Type: BLOOD SPECIMEN Ordering Facility: [facility] Address: [address] [place] [address] Result Comment: Toxi c > 150 ug/mL 4 hours post ingestion The Satya Han nomogram can be used to estimate the probability of hepatotoxicity via the relationship of plasma acetaminophen concentration to the post ingestion interval. (Branden. Pediatrics. 1975. 55:871 to 876 and Satya et al. Arch Supervisor [employer] Med. 1981. 141:380 to 385). Reference ranges and high/low indicator flags are provided as general guidelines only. The treating physician must determine appropriate target levels/dosing based on the specific clinical situation. Performed By: #### 3 298-7 #### [facility] CLIA [id number] [address] [place] [address] STATES OF [facility] CBC W Auto Differential pane l (Bld)on 02-13-2022 Basophils (Bld) [#/Vol] 0.03 10*3/uL Normal <0.11 [facility] Comment on above: Order Comment: Faina stewart Type: BLOOD SPECIMENOrdering Facility: [facility] Address: [address] [place] [address] Performed By: #### 5 7021-8 ####[facility] [id number] [address] STATES OF [facility] Basophils/100 WBC (Bld) 0.5 % Normal A [facility] Comment on above: Order Comment: Faina stewart Type: BLOOD SPECIMENOrdering Facility: [facility] Address: [address] [place] [address] Performed By: #### 5 7021-8 ####[facility] [id number] [address] STATES OF [facility] Differential cell count method Nom (Bld) Auto Normal [facility] Comment on above: Order Comment: Speci men Type: BLOOD SPECIMENOrdering Facility: [facility] Address: [address] [place] [address] Performed By: #### 5 7021-8 ####[facility] [id number] [place] [address] [facility] Eosinophils (Bld) [#/Vol] 0.05 10*3/uL Normal <0.46 [facility] Comment on above: Order Comment: Speci men Type: BLOOD SPECIMENOrdering Facility: [facility] Address: [address] [place] [address] Performed By: #### 5 7021-8 ####[facility] [id number] [address] Eosinophils/100 WBC (Bld) 0.8 % Normal [facility] Comment on above: Order Comment: Speci men Type: BLOOD SPECIMENOrdering Facility: [facility] Address: [address] [place] [address] Performed By: #### 5 7021-8 ####[facility] [id number] [address] STATES [facility] Erythrocyte distribution width (RBC) [Ratio] 17.7 % High 11.5-15.0 [facility] Comment on above: Order Comment: Speci men Type: BLOOD SPECIMENOrdering Facility: [facility] Address: [address] [place] [address] Performed By: #### 5 7021-8 ####[facility] [id number] [place] [id number] [facility] [place] Hematocrit (Bld) [Volume fraction] 31.7 % Low 36.0-46.0 [facility] Comment on above: Order Comment: Speci men Type: BLOOD SPECIMENOrdering Facility: [facility] Address: [address] [place] [address] Performed By: #### 5 7021-8 ####[facility] [id number] [place] [id number] [place] Hemoglobin (Bld) [Mass/Vol] 9.9 g/dL Low 11.5-15.5 [facility] Comment on above: Order Comment: Speci men Type: BLOOD SPECIMENOrdering Facility: [facility] Address: [address] [place] [address] Performed By: #### 5 7021-8 ####[facility] [id number] [place] [address] [place] Lymphocytes (Bld) [#/Vol] 2.31 10*3/uL Normal 1.00-4.00 [facility] Comment on above: Order Comment: Speci men Type: BLOOD SPECIMENOrdering Facility: [facility] Address: [address] [place] [address] Performed By: #### 5 7021-8 ####[facility] [id number] [place] [id number] [facility] Lymphocytes/100 WBC (Bld) 35.1 % Normal [facility] Comment on above: Order Comment: Speci men Type: BLOOD SPECIMENOrdering Facility: [facility] Address: [address] [place] [address] Performed By: #### 5 7021-8 ####[facility] [id number] [place] [address] [place] MCH (RBC) [Entitic mass] 22.9 pg Low 26.0-34.0 [facility] Comment on above: Order Comment: Speci men Type: BLOOD SPECIMENOrdering Facility: [facility] Address: [address] [place] [address] Performed By: #### 5 7021-8 ####[facility] [id number] [place] [id number] [place] MCHC (RBC) [Mass/Vol] 31.2 g/dL Normal 30.5-36.0 [facility] Comment on above: Order Comment: Speci men Type: BLOOD SPECIMENOrdering Facility: [facility] Address: [address] [place] [address] Performed By: #### 5 7021-8 ####[facility] [id number] [place] [address] [place] MCV (RBC) [Entitic vol] 73.2 fL Low 80.0-100.0 A [facility] Comment on above: Order Comment: Speci men Type: BLOOD SPECIMENOrdering Facility: [facility] Address: [address] [place] [address] Performed By: #### 5 7021-8 ####[facility] [id number] [place] [address] [facility] [place] Monocytes (Bld) [#/Vol] 0.50 10*3/uL Normal <0.87 [facility] Comment on above: Order Comment: Speci men Type: BLOOD SPECIMENOrdering Facility: [facility] Address: [address] [place] [address] Performed By: #### 5 7021-8 ####[facility] [id number] [place] [id number] [facility] Monocytes/100 WBC (Bld) 7.6 % Normal A [facility] Comment on above: Order Comment: Speci men Type: BLOOD SPECIMENOrdering Facility: [facility] Address: [address] [place] [address] Performed By: #### 5 7021-8 ####[facility] [id number] [place] [address] [place] Neutrophils (Bld) [#/Vol] 3.69 10*3/uL Normal 1.45-7.50 [facility] Comment on above: Order Comment: Speci men Type: BLOOD SPECIMENOrdering Facility: [facility] Address: [address] [place] [address] Performed By: #### 5 7021-8 ####[facility] [id number] [place] [address] [place] Neutrophils/100 WBC (Bld) 56.0 % Normal [facility] Comment on above: Order Comment: Speci men Type: BLOOD SPECIMENOrdering Facility: [facility] Address: [address] [place], [place] [address] Performed By: #### 5 7021-8 ####[facility] [id number] [place] [address] [place] Platelet mean volume (Bld) [Entitic vol] 9.8 fL Normal 9.0-12.7 [facility] Comment on above: Order Comment: Speci men Type: BLOOD SPECIMENOrdering Facility: [facility] Address: [address] [place], [place] [address] Performed By: #### 5 7021-8 ####[facility] [id number] [place] [address] [place] Platelets (Bld) [#/Vol] 276 10*3/uL Normal 150-400 [facility] Comment on above: Order Comment: Speci men Type: BLOOD SPECIMENOrdering Facility: [facility] Address: [address] [place], [place] [address] Performed By: #### 5 7021-8 ####[facility] [id number] [place] [address] [place] RBC (Bld) [#/Vol] 4.33 10*6/uL Normal 3.90-5.20 [facility] Comment on above: Order Comment: Speci men Type: BLOOD SPECIMENOrdering Facility: [facility] Address: [address] [place], [place] [address] Performed By: #### 5 7021-8 ####[facility] [id number] [place] [address] [place] WBC (Bld) [#/Vol] 6.58 10*3/uL Normal 3.70-11.00 [facility] Comment on above: Order Comment: Speci men Type: BLOOD SPECIMENOrdering Facility: [facility] Address: [address] [place], [place] [address] Performed By: #### 5 7021-8 ####[facility] [id number] [place] [address] [place] [address] ABD/PEL W IVCONon 022 CT ABD/PEL W IVCON * * *Final Report* * * DATE OF EXAM: Feb 13 2022 9:53PM [facility] 0530 - CT ABD/PEL W IVCON / PROCEDURE REASON: Abdominal abscess/infection suspected * * * * Physician Interpretation * * * * EXAMINATION: CT ABD/PEL W IVCON INDICATION: Abdominal abscess/infection suspected Abdominal abscess/infection suspected, abdominal pain, hemorrhoids and anal fissure COMPARISON: None. TECHNIQUE: CT of the abdomen and pelvis was performed using standard technique, scanning from just above the dome of the diaphragm to the pubic symphysis. Contrast: IV: 100 ml of Omnipaque 350 : ml of CT Radiation dose: Integrated Dose-length product (DLP) for this visit = 1891 mGy*cm. CT Dose Reduction Employed: Automated exposure control (AEC) FINDINGS: Lower Thorax: No consolidations Liver: No masses. Gallbladder/Biliary: Cholecystectomy. No biliary ductal dilatation. Spleen: Unremarkable. Pancreas: Unremarkable. Adrenals: No nodules Kidneys: Left superior renal cyst. No hydronephrosis. Vasculature: No aneurysm. GI Tract: Few diverticula. No wall thickening or evidence of obstruction or appendicitis. Pelvis: No pelvic masses. No bladder wall thickening. Mesentery/Peritoneum /Retroperitoneum: Trace pelvic free fluid. Lymph Nodes: No abdominopelvic lymphadenopathy. Bones and soft tissues: No suspicious bone lesions. Small fat-containing umbilical hernia. No acute findings. Head Grease Maker (topogram) images: No additional findings. IMPRESSION: No acute abnormality. Coding Clerk: PSCB Transcribe Date/Time: Feb 13 2022 10:36P Dictated by : AISHA WINSLOW MD This examination was interpreted and the report reviewed and electronically signed by: AISHA WINSLOW MD on Feb 13 2022 10:46PM EST [id number] CN Normal [facility] Comprehensive metabolic 2000 panelon 02-13-2022 Albumin [Mass/Vol] 4.3 g/dL Normal 3.4-5.0 [facility] Comment on above: Order Comment: Speci men Type: BLOOD SPECIMEN Ordering Facility: [facility] Address: [facility] [place] [address] Performed By: #### 2 4323-8, 3040-3 #### [facility] CLIA [id number] [address] [place], [place] [id number] [place] ALP [Catalytic activity/Vol] 66 U/L Normal 46-116 [facility] Comment on above: Order Comment: Speci men Type: BLOOD SPECIMEN Ordering Facility: [facility] Address: [address] [place] [address] Performed By: #### 2 4323-8, 3040-3 #### [facility] CLIA [id number] [address] [place] [address] [place] ALT With P-5'-P [Catalytic activity/Vol] 23 U/L Normal 12-78 [facility] Comment on above: Order Comment: Speci men Type: BLOOD SPECIMEN Ordering Facility: [facility] Address: [address] [place] [address] Performed By: #### 2 4323-8, 3040-3 #### [facility] CLIA [id number] [address] [place] [address] [place] Anion gap [Moles/Vol] 10 mmol/L Normal 8-16 [facility] Comment on above: Order Comment: Speci men Type: BLOOD SPECIMEN Ordering Facility: [facility] Address: [address] [place] [address] Performed By: #### 2 4323-8, 3040-3 #### [facility] CLIA [id number] [address] [place] [address] [place] AST With P-5'-P [Catalytic activity/Vol] 9 U/L Low 15-46 [facility] Comment on above: Order Comment: Speci men Type: BLOOD SPECIMEN Ordering Facility: [facility] Address: [address] [place] [address] Performed By: #### 2 4323-8, 3040-3 #### [facility] CLIA [id number] [address] [place] [address] [place] Bilirubin [Mass/Vol] 0.4 mg/dL Normal 0.2-1.0 [facility] Comment on above: Order Comment: Speci men Type: BLOOD SPECIMEN Ordering Facility: [facility] Address: [address] [place] [address] Performed By: #### 2 4323-8, 3040-3 #### [facility] CLIA [id number] [address] [place] [address] [place] Calcium [Mass/Vol] 9.0 mg/dL Normal 8.5-10.1 [facility] Comment on above: Order Comment: Speci men Type: BLOOD SPECIMEN Ordering Facility: [facility] Address: [address] [place] [address] Performed By: #### 2 4323-8, 3040-3 #### [facility] CLIA [id number] [address] [place] [address] [place] Chloride [Moles/Vol] 105 mmol/L Normal 98-107 [facility] Comment on above: Order Comment: Speci men Type: BLOOD SPECIMEN Ordering Facility: [facility] Address: [address] [place] [address] Performed By: #### 2 4323-8, 3040-3 #### [facility] CLIA [id number] [address] [place] [address] [place] CO2 [Moles/Vol] 24 mmol/L Normal 21-32 [facility] Comment on above: Order Comment: Speci men Type: BLOOD SPECIMEN Ordering Facility: [facility] Address: [address] [place] [address] Performed By: #### 2 4323-8, 3040-3 #### [facility] CLIA [id number] [address] [place] [address] [place] Creatinine [Mass/Vol] 0.77 mg/dL Normal 0.51-0.95 [facility] Comment on above: Order Comment: Speci men Type: BLOOD SPECIMEN Ordering Facility: [facility] Address: [address] [place] [address] Performed By: #### 2 4323-8, 0-3 #### [facility] CLIA [id number] [address] [place], [place] [address] [place] ESTIMATED GLOMERULAR FILTRATION RATE 104 mL/min/1.73m??? Normal >=60 [facility] Comment on above: Order Comment: Faina stewart Type: BLOOD SPECIMEN Ordering Facility: [facility] Address: [address] [place] [address] Result Comment: Monica mated Glomerular Filtration Rate (eGFR) is calculated using the 2020 CKD-EPI creatinine equation. This equation utilizes serum creatinine, sex, and age as parameters. The creatinine assay has traceable calibration to isotope dilution-mass spectrometry. Refer to KDIGO guidelines for clinical interpretation. In patients with unstable renal function, e.g. those with acute kidney injury, the eGFR may not accurately reflect actual GFR. Performed By: #### 2 4323-8, 3039-3 #### [facility] CLIA [id number] [address] [place], [place] [id number] [place] Glucose [Mass/Vol] 110 mg/dL High 70-99 [facility] Comment on above: Order Comment: Faina terry Type: BLOOD SPECIMEN Ordering Facility: [facility] Address: [address] [place] [address] Result Comment: The [place] Diabetes Association (ADA) provides guidance for cutoff values for fasting glucose and random glucose. The ADA defines fasting as no caloric intake for at least 8 hours. Fasting plasma glucose results between 100 to 125 mg/dL indicate increased risk for diabetes (prediabetes). Fasting plasma glucose results greater than or equal to 126 mg/dL meet the criteria for diagnosis of diabetes. In the absence of unequivocal hyperglycemia, results should be confirmed by repeat testing. In a patient with classic symptoms of hyperglycemia or hyperglycemic crisis, random plasma glucose results greater than or equal to 200 mg/dL meet the criteria for diagnosis of diabetes. Reference: Standards of Medical Care in Diabetes 2016, Canadian Diabetes Association. Diabetes Care. 2016.39(Suppl 1). Performed By: #### 2 4323-8, 3040-3 #### [facility] CLIA [id number] [address] [place] [address] [place] Potassium [Moles/Vol] 4.3 mmol/L Normal 3.5-5.1 [facility] Comment on above: Order Comment: Speci men Type: BLOOD SPECIMEN Ordering Facility: [facility] Address: [address] [place] [address] Performed By: #### 2 4323-8, 3040-3 #### [facility] CLIA [id number] [address] [place] [address] [place] Protein [Mass/Vol] 7.6 g/dL Normal 6.4-8.2 [facility] Comment on above: Order Comment: Speci men Type: BLOOD SPECIMEN Ordering Facility: [facility] Address: [address] [place] [address] Performed By: #### 2 4328, 0-3 #### [facility] CLIA [id number] [address] [place] [address] [place] Sodium [Moles/Vol] 139 mmol/L Normal 136-145 [facility] Comment on above: Order Comment: Speci men Type: BLOOD SPECIMEN Ordering Facility: [facility] Address: [address] [place] [address] Performed By: #### 2 4328, 3040-3 #### [facility] CLIA [id number] [address] [place] [address] [place] Urea nitrogen [Mass/Vol] 17 mg/dL Normal 7-18 [facility] Comment on above: Order Comment: Speci men Type: BLOOD SPECIMEN Ordering Facility: [facility] Address: [address] [place] [address] Performed By: #### 2 4323-8, 3040-3 #### [facility] CLIA [id number] [address] [place] [address] [place] ED NOTEon 02-13-2022 ED NOTE HNO ID: [id number] Author: Yao Jacinto RN Service: Nursing Author Type: Registered Nurse Type: ED Notes Filed: 02/13/2022 9:47 PM Note Text: Pt to radiology. [facility] ED NOTE HNO ID: [id number] Author: Yao Jacinto RN Service: Nursing Author Type: Registered Nurse Type: ED Notes Filed: 02/13/2022 9:11 PM Note Text: Pt states that her abdomen hurts 10 times worse since the doctor pressed on my abdomen and now my hernia is bothering me. phsycian notified. [facility] ED NOTE HNO ID: [id number] Author: John Goel RN Service: Emergency Medicine Author Type: Registered Nurse Type: ED Notes Filed: 02/13/2022 7:00 PM Note Text: Pt has hemrhoids and anal fissure that has been causing pain. Pt also reports bumps inside and out with fevers and chills. LBM 4-days ago. Hx hernia. Pt has been taking 2,000mg tylenol QID as well as ibuprofen 1000mg QID for the last 2 weeks. [facility] ED PROV NOTEon 02-13-2022 ED PROV NOTE HNO ID: [id number] Author: Bib Rodriguez APRN.ARPIT Service: Emergency Medicine Author Type: Nurse Practitioner Type: ED Provider Notes Filed: 02/19/2022 10:37 PM Note Text: ED Provider Note Patient Name: Pati Bond : 1985 SERVICE DATE: 02/13/22 History Patient presents with: Rectal Pain HPI 36-year-old comes in with complaints of increased abdominal pain and rectal pain discomfort. She is seeing rectal surgeon who diagnosed her with hemorrhoids and anal fissure she placed on about 2 creams stool softeners and informed her to take Tylenol ibuprofen [id number]-hefmorp for pain discomfort. Patient states that she has been taking around 2000 mg of Tylenol 4 times a day along with 2000 mg ibuprofen 4 times a day for the last 2 weeks. She has had increased abdominal pain and discomfort over the last few days worsening today. She is also had worsening pain discomfort to her rectum. She denies any urinary symptoms has been having some intermittent chills denies any fevers no other associated symptoms or concerns. She has reached out multiple times to her specialist and primary care physician she has not heard anything back she went to urgent care today who informed her to come over here for further evaluation. PAST MEDICAL HISTORY Diagnosis Date - Anemia - Morbid obesity (HCC) PAST SURGICAL HISTORY Procedure Laterality Date - ANESTH, SECTION 2005, 2010twice - CHOLECYSTECTOMY - HIATAL HERNIA REPAIR HX - ORAL SURGERY PROCEDURE FAMILY HISTORY Family history unknown: Yes Social History Tobacco Use - Smoking status: Former Smoker Types: Cigarettes Quit date: 05/2017 Years since quittin.7 - Smokeless tobacco: Never Used - Tobacco comment: smoked for 3 months Vaping Use - Vaping Use: Never used Substance and Sexual Activity - Alcohol use: No - Drug use: No - Sexual activity: Yes Partners: Male ALLERGIES No Known Allergies Review of Systems Constitutional: Positive for chills. Negative for fever. HENT: Negative. Respiratory: Negative for cough, shortness of breath and wheezing. Cardiovascular: Negative for chest pain, palpitations and leg swelling. Gastrointestinal: Positive for abdominal pain and rectal pain. Negative for diarrhea, nausea and vomiting. Musculoskeletal: Negative. Skin: Negative. Neurological: Negative for dizziness, weakness, light-headedness and headaches. Psychiatric/Behavior al: Negative. Physical Exam Vitals [02/13/22 1900] BP Pulse Temp Temp src Resp SpO2 Weight Height 136/92 88 36.3 ?C (97.3 ?F) -- 18 99 % 102.1 kg (225 lb) 1.651 m (5' 5) Physical Exam Vitals and nursing note reviewed. Constitutional: General: She is not in acute distress. Appearance: Normal appearance. She is normal weight. She is not ill-appearing or toxic-appearing. HENT: Head: Normocephalic. Right Ear: Tympanic membrane normal. Left Ear: Tympanic membrane normal. Nose: Nose normal. Mouth/Throat: Mouth: Mucous membranes are moist. Eyes: Pupils: Pupils are equal, round, and reactive to light. Cardiovascular: Rate and Rhythm: Normal rate and regular rhythm. Pulses: Normal pulses. Pulmonary: Effort: Pulmonary effort is normal. No respiratory distress. Breath sounds: Normal breath sounds. No wheezing, rhonchi or rales. Abdominal: Tenderness: There is abdominal tenderness. There is no right CVA tenderness, left CVA tenderness, guarding or rebound. Genitourinary: Musculoskeletal: General: Normal range of motion. Cervical back: Normal range of motion. No rigidity or tenderness. Skin: General: Skin is warm. Capillary Refill: Capillary refill takes less than 2 seconds. Neurological: General: No focal deficit present. Mental Status: She is alert. Diagnostic Testing ED Labs Ordered and Reviewed - No data to display Procedures ED Course / Clinical Impression Clinical Impressions as of 02/13/22 2304 Anal or rectal pain Anal fissure MDM / Disposition / Plan MDM 36-year-old comes in with complaints of worsening pain discomfort she is complaining of abdominal pain along with rectal pain discomfort. This been ongoing times week she does see a colorectal surgeon and has been seeing her primary care physician. She was prescribed medication outpatient and has been using but pain has been worsening and increasing. Patient on physical examination is nonseptic appearing vitals are within normal limits she is afebrile nontachypneic nontachycardic. She does not appear to be septic. Abdomen is tender diffusely to the upper abdomen mainly in the epigastric region there is negative Burrows sign lower abdomen is soft nontender nondistended. Heart sounds are regular S1-S2 noted with no murmurs no extra heart sounds noted lungs are clear bilateral. Rectal exam was completed with salesperson women's hats at bedside VERONICA Barraza. There is no noted external hemorrhoid peers to be maybe a small (more content not included)... Normal [facility] HCG Preg Ur Qlon 02-13-2022 HCG ( test) Ql (U) Negative Normal Negative [facility] Comment on above: Order Comment: Speci men Type: URINE SPECIMEN Ordering Facility: [facility] Address: [address] [place] [address] Result Comment: This test is intended to aid in the early detection of . Very dilute urine samples, as indicated by a low specific gravity, may not contain medical detail representative levels of hCG. This test detects intact hCG only. This test does not reliably detect hCG degradation products, including free-beta subunit and beta-core fragment. Therefore, this test may show reduced reactivity in urine after 8 weeks gestation. A number of conditions other than , including trophoblastic disease and certain non-trophoblastic neoplasms cause elevated levels of hCG. As with any assay employing mouse antibodies, the possibility exists for interference by human anti-mouse antibodies (HAMA) in the specimen. The test provides a presumptive diagnosis for . Performed By: #### 2 106-3 #### [facility] CLIA [id number] [address] [place], [place] [id number] [facility] Lipase SerPl-cCncon 02-14-20 22 Lipase [Catalytic activity/Vol] 67 U/L Low 73-393 [facility] Comment on above: Order Comment: Speci men Type: BLOOD SPECIMEN Ordering Facility: [facility] Address: [address] [place] [address] Performed By: #### 2 4323-8, 3040-3 #### [facility] CLIA [id number] [address] [place], [place] [id number] [facility] Urinalysis complete panel (U )on 02-13-2022 Bacteria LM.HPF (Urine sed) [#/Area] Few Abnormal None Seen [facility] Comment on above: Order Comment: Speci men Type: URINE SPECIMENOrdering Facility: [facility] Address: [address] [place] [address] Performed By: #### 2 4356-8 ####[facility] [id number] [address] Bilirubin Ql (U) Negative Normal Negative [facility] Comment on above: Order Comment: Speci men Type: URINE SPECIMENOrdering Facility: [facility] Address: [address] [place] [address] Performed By: #### 2 4356-8 ####[facility] [id number] [place] [id number] [facility] Clarity (Unsp spec) Slightly Cloudy Abnormal Clear [facility] Comment on above: Order Comment: Speci men Type: URINE SPECIMENOrdering Facility: [facility] Address: [address] [place] [address] Performed By: #### 2 4356-8 ####[facility] [id number] [place] [id number] [facility] Color (U) Yellow Normal Yellow [facility] Comment on above: Order Comment: Speci men Type: URINE SPECIMENOrdering Facility: [facility] Address: [address] [place] [address] Performed By: #### 2 4356-8 ####[facility] [id number] [place] [address] [place] Epithelial cells LM.HPF (Urine sed) [#/Area] Few Normal [facility] Comment on above: Order Comment: Speci men Type: URINE SPECIMENOrdering Facility: [facility] Address: [address] [place] [address] Performed By: #### 2 4356-8 ####[facility] [id number] [place] [address] [facility] Glucose Test strip (U) [Mass/Vol] Negative Normal Negative [facility] Comment on above: Order Comment: Speci men Type: URINE SPECIMENOrdering Facility: [facility] Address: [address] [place] [address] Performed By: #### 2 4356-8 ####[facility] [id number] [place] [address] [place] Hemoglobin Ql (U) Negative Normal Negative [facility] Comment on above: Order Comment: Speci men Type: URINE SPECIMENOrdering Facility: [facility] Address: [address] [place] [address] Performed By: #### 2 4356-8 ####[facility] [id number] [place] [address] [facility] [place] Ketones Ql (U) Negative Normal Negative [facility] Comment on above: Order Comment: Speci men Type: URINE SPECIMENOrdering Facility: [facility] Address: [address] [place] [address] Performed By: #### 2 4356-8 ####[facility] [id number] [place] [address] [place] Leukocyte esterase Test strip Ql (U) Negative Normal Negative [facility] Comment on above: Order Comment: Speci men Type: URINE SPECIMENOrdering Facility: [facility] Address: [address] [place] [address] Performed By: #### 2 4356-8 ####[facility] [id number] [place] [address] [place] Nitrite Ql (U) Negative Normal Negative [facility] Comment on above: Order Comment: Speci men Type: URINE SPECIMENOrdering Facility: [facility] Address: [address] [place] [address] Performed By: #### 2 4356-8 ####[facility] [id number] [place] [address] [place] pH (U) 6.0 [pH] Normal 5.0-8.0 [facility] Comment on above: Order Comment: Speci men Type: URINE SPECIMENOrdering Facility: [facility] Address: [address] [place] [address] Performed By: #### 2 4356-8 ####[facility] [id number] [place] [address] [place] Protein (U) [Mass/Vol] Negative Normal Negative [facility] Comment on above: Order Comment: Speci men Type: URINE SPECIMENOrdering Facility: [facility] Address: [address] [place] [address] Performed By: #### 2 4356-8 ####[facility] [id number] [place] [address] [place] RBC LM.HPF (Urine sed) [#/Area] 0-3 /HPF Normal 0-3 /HPF [facility] Comment on above: Order Comment: Speci men Type: URINE SPECIMENOrdering Facility: [facility] Address: [address] [place] [address] Performed By: #### 2 4356-8 ####[facility] [id number] [place] [address] [place] Specific gravity (U) [Rel density] >=1.030 High 1.005-1.030 [facility] Comment on above: Order Comment: Speci men Type: URINE SPECIMENOrdering Facility: [facility] Address: [address] [place] [address] Performed By: #### 2 4356-8 ####[facility] [id number] [place] [address] [facility] Urobilinogen Ql (U) 0.2 EU/dL Normal 0.2-1.0 EU/dL [facility] Comment on above: Order Comment: Speci men Type: URINE SPECIMENOrdering Facility: [facility] Address: [address] [place] [address] Performed By: #### 2 4356-8 ####[facility] [id number] [place] [id number] [place] WBC LM.HPF (Urine sed) [#/Area] 0-5 /HPF Normal 0-5 /HPF [facility] Comment on above: Order Comment: Speci men Type: URINE SPECIMENOrdering Facility: [facility] Address: [address] [place] [address] Performed By: #### 2 4356-8 ####[facility] [id number] [place] [id number] [facility] [place] XR Sacrum and Coccyx 3 Views on 09-05-2021 IMPRESSION: Slight displacement as described Coding Clerk[facility] Transcribe Date/Time: Sep 05 2021 9:05A Dictated by : NORMA VAUGHAN MD This examination was interpreted and the report reviewed and electronically signed by: NORMA VAUGHAN MD on Sep 05 2021 9:07AM [facility] DIVISION OF RADIOLOGY * * *Final Report* * * DATE OF EXAM: Sep 05 2021 8:59AM WOX 5246 - XR SACRUM/COCCYX 3V AP/LAT / PROCEDURE REASON: Coccydynia * * * * Physician Interpretation * * * * HISTORY: Coccydynia Centalized coccyx and sacral pain following 2 falls over the last several days TECHNIQUE: AP, AP angled, and lateral views COMPARISON: None RESULT: No fracture is seen. The coccyx appears displaced 4 or 5 mm posteriorly in relation to the distal sacrum. The acuity of this is not clear. No other findings. DIVISION OF RADIOLOGY Provider, [facility] [place] - 09/05/2021 * * *Final Report* * * DATE OF EXAM: Sep 05 2021 8:59AM WOX 5246 - XR SACRUM/COCCYX 3V AP/LAT / PROCEDURE REASON: Coccydynia * * * * Physician Interpretation * * * * HISTORY: Coccydynia Centalized coccyx and sacral pain following 2 falls over the last several days TECHNIQUE: AP, AP angled, and lateral views COMPARISON: None RESULT: No fracture is seen. The coccyx appears displaced 4 or 5 mm posteriorly in relation to the distal sacrum. The acuity of this is not clear. No other findings. IMPRESSION IMPRESSION: Slight displacement as described Coding Clerk: [facility] Transcribe Date/Time: Sep 05 2021 9:05A Dictated by : NORMA VAUGHAN MD This examination was interpreted and the report reviewed and electronically signed by: NORMA VAUGHAN MD on Sep 05 2021 9:07AM EST [facility] Radiology Study observation (narrative) [facility] XR Sacrum and Coccyx 3 Views Ordered By: [facility] Provider on 09-05-2021 [facility] No Panel Informationon 11-30 Radiology Study observation (narrative) [facility] XR Chest PA and Lateralon IMPRESSION: No acute radiographic abnormality. Coding Clerk: [facility] Transcribe Date/Time: 2020 11:35A Dictated by : JUVE ABREU MD This examination was interpreted and the report reviewed and electronically signed by: JUVE ABREU MD on 2020 11:35AM [facility] DIVISION OF RADIOLOGY * * *Final Report* * * DATE OF EXAM: 2020 11:29AM WOX 5291 - XR CHEST 2V FRONTAL/LAT / PROCEDURE REASON: Positive FLEX (antinuclear antibody) * * * * Physician Interpretation * * * * EXAMINATION: CHEST RADIOGRAPH (2 VIEW FRONTAL & LATERAL) CLINICAL HISTORY: Positive FLEX (antinuclear antibody) MQ: XC2_6 EXAM DATE/TIME: 2020 11:29 AM COMPARISON: No relevant prior studies available. RESULT: Lines, tubes, and devices: None. Lungs and pleura: No consolidation. No lung mass. No pleural effusion. No pneumothorax. Cardiomediastinal silhouette: Normal cardiomediastinal silhouette. Bones and soft tissues: Unremarkable. DIVISION OF RADIOLOGY Provider, [facility] [place] - 2020 * * *Final Report* * * DATE OF EXAM: 2020 11:29AM WOX 5291 - XR CHEST 2V FRONTAL/LAT / PROCEDURE REASON: Positive FLEX (antinuclear antibody) * * * * Physician Interpretation * * * * EXAMINATION: CHEST RADIOGRAPH (2 VIEW FRONTAL & LATERAL) CLINICAL HISTORY: Positive FLEX (antinuclear antibody) MQ: XC2_6 EXAM DATE/TIME: 2020 11:29 AM COMPARISON: No relevant prior studies available. RESULT: Lines, tubes, and devices: None. Lungs and pleura: No consolidation. No lung mass. No pleural effusion. No pneumothorax. Cardiomediastinal silhouette: Normal cardiomediastinal silhouette. Bones and soft tissues: Unremarkable. IMPRESSION IMPRESSION: No acute radiographic abnormality. Coding Clerk: [facility] Transcribe Date/Time: 2020 11:35A Dictated by : JUVE ABREU MD This examination was interpreted and the report reviewed and electronically signed by: JUVE ABREU MD on 2020 11:35AM EST [facility] XR Chest PA and LateralOrder ed By: [facility] Provider on 2020 [facility] XR Shoulder - right 2 Viewso n 2020 IMPRESSION: Negative 2 views of the right shoulder. Coding Clerk: [facility] Transcribe Date/Time: 2020 12:04P Dictated by : ALBANIA JACK MD This examination was interpreted and the report reviewed and electronically signed by: ALBANIA JACK MD on 2020 12:05PM [facility] DIVISION OF RADIOLOGY * * *Final Report* * * DATE OF EXAM: 2020 11:29AM WOX 5255 - XR SHOULDER 2V AP/TRUE AP RT / PROCEDURE REASON: multiple diagnoses * * * * Physician Interpretation * * * * EXAM TITLE: XR SHOULDER 2V AP/TRUE AP RT EXAM DATE/TIME: 2020 11:29 AM COMPARISON: None. CLINICAL INDICATION/HISTORY: Chronic shoulder pain. TECHNIQUE: AP and true AP views of the right shoulder are presented FINDINGS: No acute fractures or subluxations are noted. The joint spaces are well preserved. The mineralization of the bones is normal. There is no significant soft tissue swelling. DIVISION OF RADIOLOGY Provider, [facility] [place] - 2020 * * *Final Report* * * DATE OF EXAM: 2020 11:29AM WOX 5255 - XR SHOULDER 2V AP/TRUE AP RT / PROCEDURE REASON: multiple diagnoses * * * * Physician Interpretation * * * * EXAM TITLE: XR SHOULDER 2V AP/TRUE AP RT EXAM DATE/TIME: 2020 11:29 AM COMPARISON: None. CLINICAL INDICATION/HISTORY: Chronic shoulder pain. TECHNIQUE: AP and true AP views of the right shoulder are presented FINDINGS: No acute fractures or subluxations are noted. The joint spaces are well preserved. The mineralization of the bones is normal. There is no significant soft tissue swelling. IMPRESSION IMPRESSION: Negative 2 views of the right shoulder. Coding Clerk: [facility] Transcribe Date/Time: 2020 12:04P Dictated by : ALBANIA JACK MD This examination was interpreted and the report reviewed and electronically signed by: ALBANIA JACK MD on 2020 12:05PM [facility] Progress Noteon 09-24-2017 Electrical Controls Assembler Authentication Interface Message Text [facility] MEDICINE CONSULTReferring/Req uesting Provider: Zana Henderson, *PCP: NO PRIMARY CARE, 1, INDICATION FOR CONSULT: PPROM at 18 weeks, nausea and vomiting of pregnancyHISTORY OF PRESENT ILLNESS:Patient is a 31 y.o. at 18w0d who presents for consultation regardingPPROM, chronic vaginal bleeding, and N/V. Pati reports she had vaginalbleeding for the past 3-4 weeks. On 09/21/17, she was diagnosed with PPROM.Additional she has N/V through out and had a 27 pound weight loss thispregnancy.Prior to PPROM, she did have a febrile illness and suspected viral illnessduring .They decline termination of for any reason and want everything donefor their baby.She is prescribed IV fluids and Zofran pump through [facility]. Her Zofran pumpmalfunctioned and she is waiting for a replacement. Her nausea decreased from 6xper day to 1-2 times per day with Zofran.She did have +THC in her urine, however she discontinued use with .Her 1st trimester HA1c is 4.7.Her LMP is certain.Per patient, they are following urine ketones to determine if IV Fluids areneeded.OB HistoryGravida Para Term AB Living3 2 2 2SAB TAB Ectopic Multiple Live Births 2# Outcome Date GA Lbr Jose L/2nd Weight Sex Delivery Anes PTL Lv3 Current2 Term 03/17/11 39w0d 3.997 kg F CS-Unspec Spinal N LIV1 Term 01/29/06 41w0d 5.018 kg M CS-Unspec Gen N LIVHistory reviewed. No pertinent past medical history.Past Surgical History:Procedure Laterality Date SECTION GALLBLADDER SURGERY 2013PERTINENT FAMILY HISTORY:Family HistoryProblem Relation Age of Onset No known problems Mother No known problems Father No known problems Sister No known problems Brother No known problems Maternal Grandmother Stroke Maternal GrandfatherMEDS:Outp atient Prescriptions Marked as Taking for the 09/24/17 encounter (OfficeVisit) with Jayne Zhang, DOMedication Sig Dispense Refill ondansetron (ZOFRAN) 4 MG tablet Take 4 mg by mouth every 6 hours as neededfor Nausea UNABLE TO FIND Zofran Pump. Pt is on 0.6 ml/hr. Pt currently does not havepump as the pump was defective. promethazine (PHENERGAN) 25 MG tablet Take 25 mg by mouth every 4 hours asneeded for Nausea ranitidine (ZANTAC) 150 MG tablet Take 150 mg by mouth 2 times daily Cephalexin (KEFLEX PO) Take 1 Tab by mouth 3 times daily Pt unsure of exactdose Vit w/Je-Ynpmzakqw-KK (PNV PO) Take 1 Tab by mouth dailyALLERGY:No Known AllergiesREVIEW OF SYSTEMS:As mentioned above and in Subjective, all other Review of Systems reviewed andnegative.PHYSICAL EXAM:VITAL SIGNS: BP 116/72 Temp 36.5 C (97.7 F) Ht 165.1 cm Wt (!) 109.3kg (241 lb) LMP 05/21/2017 (Exact Date) BMI 40.10 kg/m General Appearance: Alert, appropriate appearance for age. No acute distress.Resp without difficulty.No abdominal tenderness.Ambulatin g with out difficulty.IV in left arm with IV fluids running.Bruising ovr right and left arms from prior IVs.IMAGING:See report.LABS:Blood type Rh+ per record.IMPRESSION:Christopher andino is a31 y.o. at 18w0d withActive Non-Hospital Problems Diagnosis Date Noted Obesity affecting , antepartum 09/24/2017 1st trimester HA1c normal 27 lb weight loss due to N/V Recommend healthy, well balanced nutrition. Reviewed iron containing foods. Premature rupture of membranes with problem 09/24/2017 Maternal and risks including: infection, bleeding, delivery,pulmonary hypoplasia, malformation from compression with oligohydramnios andstill reviewed. complications including cerebral palsy, retinopathy, RDS, NECreviewed. Pati and her decline delivery. They will come to [place] for anoutpatient consult at 22 weeks with neonatology and M to review outcomes inpatients with PPROM. Plan for inpatient admission (generally between 23 1/2weeks - 25 weeks based on patient's desire for intervention after consult withneonatology). Continue daily temperature evaluation and pelvic rest at home. Signs andsymptoms of chorioamnionitis reviewed. Weekly evaluation with Dr. Cornelius Henderson to evaluate if expectant managementcan be continued. Nausea and vomiting during prior to 22 weeks gestation 09/24/2017 Nausea and vomiting is common in , occurring in 50-80% ofpregnancies. Significant risk to maternal or wellbeing is rare, but havebeen reported. Non-pharmacological interventions include diet changes, frequent napping anddecreased work shift hours. We also reviewed the benefits of Acupuncture, gingersupplementatio n. Risks and benefits of pharmacological intervention were reviewed. Phenerganwas ineffective, but she did well with Zofran pump. The FDA has issued an updated warning against ondansetran (brand name Zofran)use in . Zofran is a 5-HT3 receptor antagonist approved by the FDA forpreventing nausea and vomiting related to cancer chemotherapy and surgery. Ithas been used off-label to treat nausea and vomiting in . Based onrecent studies regarding the association between Zofran use in early pregnancyand congenital cardiac malformations and oral clefts (cleft lip and palate), theFDA has cautioned against its use in . There are also potentialmaternal risks associated with taking Zofran especially in women withelectrolyte imbalance due to severe nausea and vomiting. These risks include theSerotonin Syndrome which is a triad of cognitive or behavioral changes includingconfusion, agitation, autonomic instability, and neuromuscular changes. Given her weight loss and favorable response and gestational age, continuationof Zofran is reasonable for Pati. RX for B6 and doxylamine sent to pharmacy.Follow up 4 weeks with MFM and neonatology. Call with any questions or concernsin the meantime.The total patient time of the visit was 30 minutes, of which was greater than50% of the time was spent counseling and coordinating care. Normal [facility] .Auto Diffon 09-17-2017 Basophils Auto #/vol (Bld) 0.00 10 3/mcL Normal 0.00-0.19 [facility] ([place]) Comment on above: Performed By: #### C SÁNCHEZ COLES ANEU, GFR, BMP ####[address] [place], [place] [address] Basophils/100 WBC Auto (Bld) 0.2 % Normal 0.0-2.5 [facility] Comment on above: Performed By: #### C SÁNCHEZ COLES ANEU, GFR, BMP ####[facility] [place], [place] [address] Eosinophils 0.00 10 3/mcL Normal 0.00-0.40 [facility] ([place] Comment on above: Performed By: #### C SÁNCHEZ COLES ANEU, GFR, BMP ####[facility] [place], [place] [address] Eosinophils/100 leukocytes 0.0 % Normal 0.0-7.0 [facility] ([place] Comment on above: Performed By: #### C SÁNCHEZ COLES ANEU, GFR, BMP ####[facility] [place], [place] [address] Lymphocytes 0.40 10 3/mcL Low 0.77-3.85 [facility] ([place]) Comment on above: Performed By: #### C BC, ADIFF, ANEU, GFR, BMP ####[address] [place], [place] [address] Lymphocytes/100 leukocytes 6.5 % Low 10.0-50.0 [facility] Comment on above: Performed By: #### C BC, ADIFF, ANEU, GFR, BMP ####[address] [place], [place] [address] Monocytes 0.40 10 3/mcL Normal 0.15-1.00 [facility] Comment on above: Performed By: #### C BC, ADIFF, ANEU, GFR, BMP ####[address] [place], [place] [address] Monocytes/100 leukocytes 5.7 % Normal 1.7-13.0 [facility] ([place]) Comment on above: Performed By: #### C BC, ADIFF, ANEU, GFR, BMP ####Vernellaquilino [address] [place], [place] [address] Neutrophils/100 WBC Auto (Bld) 87.6 % High 37.0-80.0 [facility] ([place]) Comment on above: Performed By: #### C BC, ADIFF, ANEU, GFR, BMP ####Vernellaquilino [address] [place], [place] [address] .GFRon 09-17-2017 eGFR (non-black) mL/min/{1.73_m2} Normal [facility] ([place]) Comment on above: Result Comment: GFR Population mean for , Non- Americans Ages 20-29 = 116 mL/min/1.73 sq.m. Ages 30-39 = 107 mL/min/1.73 sq.m. Ages 40-49 = 99 mL/min/1.73 sq.m. Ages 50-59 = 93 mL/min/1.73 sq.m. Ages 60-69 = 85 mL/min/1.73 sq.m. Ages 70+ = 75 mL/min/1.73 sq.m.Chronic Kidney Disease: Less than 60 mL/min/1.73 square metersEnd Stage Renal Disease: Less than 15 mL/min/1.73 square meters Performed By: #### C BC, ADIFF, ANEU, GFR, BMP ####Vernell [address] [place], [place] [address] eGFR (non-black) 148 ml/min/1.73sqm Normal [facility] ([place]) Comment on above: Result Comment: GFR Population mean for , Non- Americans Ages 20-29 = 116 mL/min/1.73 sq.m. Ages 30-39 = 107 mL/min/1.73 sq.m. Ages 40-49 = 99 mL/min/1.73 sq.m. Ages 50-59 = 93 mL/min/1.73 sq.m. Ages 60-69 = 85 mL/min/1.73 sq.m. Ages 70+ = 75 mL/min/1.73 sq.m.Chronic Kidney Disease: Less than 60 mL/min/1.73 square metersEnd Stage Renal Disease: Less than 15 mL/min/1.73 square meters Performed By: #### C BC, ADIFF, ANEU, GFR, BMP ####Vernell [address] [place], [place] [address] .NEUABSon 09-17-2017 Neutrophils 5.70 10 3/mcL Normal 2.85-6.16 [facility] ([place] Comment on above: Performed By: #### C BC, ADIFF, ANEU, GFR, BMP ####Vernell [address] [place], [place] [address] BMPon 09-17-2017 Glucose mass conc 103 mg/dL Normal 70-105 [facility] ([place] Comment on above: Performed By: #### C BC, ADIFF, ANEU, GFR, BMP ####Vernell [address] [place], [place] [address] BUN/Creatinine Ratio 5 ratio Low 7-27 [facility] ([place]) Comment on above: Performed By: #### C BC, ADIFF, ANEU, GFR, BMP ####Vernell [address] [place], [place] [address] Creatinine 0.6 mg/dL Normal 0.6-1.2 [facility] ([place] Comment on above: Performed By: #### C BC, ADIFF, ANEU, GFR, BMP ####Vernell [address] [place], [place] [address] CO2 21 mmol/L Low 22-29 [facility] ([place] Comment on above: Performed By: #### C BC, ADIFF, ANEU, GFR, BMP ####Vernell [address] [place], [place] [address] Electrolyte Balance 10.0 mEq/L Normal [facility] ([place]) Comment on above: Performed By: #### C BC, ADIFF, ANEU, GFR, BMP ####Vernell [address] [place], [place] [address] Calcium 8.6 mg/dL Normal 8.4-10.2 [facility] ([place] Comment on above: Performed By: #### C BC, ADIFF, ANEU, GFR, BMP ####Vernell [address] [place], [place] [address] Urea nitrogen 2.8 mg/dL Low 7.0-18.0 [facility] ([place] Comment on above: Performed By: #### C BC, ADIFF, ANEU, GFR, BMP ####Vernell [address] [place] [id number] Chloride 101 mmol/L Normal 98-107 [facility] ([place] Comment on above: Performed By: #### C BC, ADIFF, ANEU, GFR, BMP ####Vernell [address] [place], [place] [address] Potassium molar conc 3.8 mmol/L Normal 3.5-5.1 [facility] ([place] Comment on above: Performed By: #### C BC, ADIFF, ANEU, GFR, BMP ####Vernell [address] [place], [place] [address] Sodium 132 mmol/L Low 136-146 [facility] ([place] Comment on above: Performed By: #### C BC, ADIFF, ANEU, GFR, BMP ####Vernell [address] [place], [place] [address] CBCon 09-17-2017 Erythrocyte distribution width Auto Ratio (RBC) 12.5 % Normal 11.5-14.5 [facility] ([place] Comment on above: Performed By: #### C BC, ADIFF, ANEU, GFR, BMP ####Vernell [address] [place], [place] [address] Erythrocytes (RBC) 4.03 10 6/mcL Low 4.20-5.40 [facility] ([place]) Comment on above: Performed By: #### C BC, ADIFF, ANEU, GFR, BMP ####Vernell [address] [place] [id number] Hematocrit (HCT) 36.5 % Low 37.0-47.0 [facility] ([place] Comment on above: Performed By: #### C BC, ADIFF, ANEU, GFR, BMP ####Vernell [address] [place], [place] [address] Hemoglobin mass conc (Bld) 12.9 G/dL Normal 12.0-16.0 [facility] ([place] Comment on above: Performed By: #### C BC, ADIFF, ANEU, GFR, BMP ####Vernell [address] [place] [id number] MCH 32.1 pg High 27.0-31.2 [facility] ([place] Comment on above: Performed By: #### C BC, ADIFF, ANEU, GFR, BMP ####Vernell [address] [place] [id number] MCHC mass conc (RBC) 35.5 G/dL Normal 33.0-37.0 [facility] ([place] Comment on above: Performed By: #### C BC, ADIFF, ANEU, GFR, BMP ####Vernell [address] [place] [id number] MCV 90.6 fL Normal 80.0-94.0 [facility] ([place] Comment on above: Performed By: #### C BC, ADIFF, ANEU, GFR, BMP ####Vernell [address] [place] [id number] Platelet mean volume (PMV) 8.4 fL Normal 7.4-10.4 [facility] ([place] Comment on above: Performed By: #### C BC, ADIFF, ANEU, GFR, BMP ####[address]ell [address] [place], [place] [address] Platelets 145 10 3/mcL Normal 130-400 [facility] ([place] Comment on above: Performed By: #### C BC, ADIFF, ANEU, GFR, BMP ####[address]ell [address] [place], [place] [address] WBC (Leukocytes) 6.50 10 3/mcL Normal 4.60-10.80 [facility] ([place]) Comment on above: Performed By: #### C BC, ADIFF, ANEU, GFR, BMP ####Vernell [address] [place], [place] [address] [facility] Note on 09-17-2017 [facility] Note Normal [facility] ([place]) Pat Eduon 09-17-2017 Pat Edu Normal [facility] ([place]) Patient Summary Documentson 09-17-2017 Patient Summary Documents Normal [facility] ([place]) Vital Signs Date Time Vital Sign Value Performing Clinician Facility 03-12-2025 11:39-0400 Body temperature 98.4 [degF] Dr. Richard Hunter MD Work Phone: [facility] 03-12-2025 11:39-0400 Diastolic blood pressure 96 mm[Hg] Dr. Richard Hunter MD Work Phone: [facility] 03-12-2025 11:39-0400 Heart rate 67 /min Dr. Richard Hunter MD Work Phone: [facility] 03-12-2025 11:39-0400 Respiratory rate 18 /min Dr. Richard Hunter MD Work Phone: [facility] 03-12-2025 11:39-0400 SaO2% (BldA) [Mass fraction] 99 % Dr. Richard Hunter MD Work Phone: [facility] 03-12-2025 11:39-0400 Systolic blood pressure 126 mm[Hg] Dr. Richard Hunter MD Work Phone: [facility] 03-12-2025 08:34-0400 Body height 165.[address] Richard Hunter MD Work Phone: [facility] 03-12-2025 08:34-0400 Body mass index (BMI) [Ratio] 39 kg/m2 Dr. Richard Hunter MD Work Phone: [facility] 03-12-2025 08:34-0400 Body weight 106.[address] Richard Hunter MD Work Phone: [facility] 02-26-2025 08:06-0400 Body weight 107.96 kg John Vivas DO Work Phone: [facility] [employer] 02-26-2025 08:06-0400 Diastolic blood pressure 68 mm[Hg] John Vivas DO Work Phone: [facility] [employer] 02-26-2025 08:06-0400 Systolic blood pressure 104 mm[Hg] John Vivas DO Work Phone: [facility] [employer] 12-25-2024 14:44-0400 Body weight 118.39 kg John Vivas DO Work Phone: [facility] [employer] 12-25-2024 14:44-0400 Diastolic blood pressure 85 mm[Hg] John Vivas DO Work Phone: [facility] [employer] 12-25-2024 14:44-0400 Heart rate 90 /min John Vivas DO Work Phone: [employer] 12-25-2024 14:44-0400 Systolic blood pressure 131 mm[Hg] John Vivas DO Work Phone: [facility] [employer] 12-10-2024 15:30-0400 Diastolic blood pressure 62 mm[Hg] Eyad Cartwright MD Work Phone: [facility] 12-10-2024 15:30-0400 Heart rate 60 /min Eyad Cartwright MD Work Phone: [facility] 12-10-2024 15:30-0400 Respiratory rate 18 /min Eyad Cartwright MD Work Phone: [facility] 12-10-2024 15:30-0400 SaO2% (BldA) [Mass fraction] 97 % Eyad Cartwright MD Work Phone: [facility] 12-10-2024 15:30-0400 Systolic blood pressure 125 mm[Hg] Eyad Cartwright MD Work Phone: [facility] 12-10-2024 14:59-0400 Body temperature 97.7 [degF] Eyad Cartwright MD Work Phone: [facility] 12-10-2024 13:57-0400 Body height 166.4 cm Eyad Cartwright MD Work Phone: [facility] 12-10-2024 13:57-0400 Body mass index (BMI) [Ratio] 42.77 kg/m2 Eyad Cartwright MD Work Phone: [facility] 12-10-2024 13:57-0400 Body weight 118.39 kg Eyad Cartwright MD Work Phone: [facility] 12-10-2024 08:24-0400 Body mass index (BMI) [Ratio] 42.85 kg/m2 Daniel Finelli DO Work Phone: [facility] 12-10-2024 08:24-0400 Body temperature 98.1 [degF] Daniel Finelli DO Work Phone: [facility] 12-10-2024 08:24-0400 Body weight 118.6 kg Daniel Finelli DO Work Phone: [facility] 12-10-2024 08:24-0400 Diastolic blood pressure 71 mm[Hg] Daniel Finelli DO Work Phone: [facility] 12-10-2024 08:24-0400 Heart rate 70 /min Daniel Finelli DO Work Phone: [facility] 12-10-2024 08:24-0400 Respiratory rate 16 /min Danielrichard Menalli DO Work Phone: [facility] 12-10-2024 08:24-0400 SaO2% (BldA) [Mass fraction] 95 % Daniel Finelli DO Work Phone: [facility] 12-10-2024 08:24-0400 Systolic blood pressure 137 mm[Hg] Daniel Finelli DO Work Phone: [facility] 11-26-2024 14:17-0400 Body height 166.4 cm Bradly Hritz MASTER AUTOMOTIVE TECHNICIAN.[employer] Work Phone: [facility] 11-26-2024 14:17-0400 Body mass index (BMI) [Ratio] 42.85 kg/m2 Bradly Hritz MASTER AUTOMOTIVE TECHNICIAN.[employer] Work Phone: [facility] 11-26-2024 14:17-0400 Body temperature 98.6 [degF] Bradly Hritz MASTER AUTOMOTIVE TECHNICIAN.[employer] Work Phone: [facility] 11-26-2024 14:17-0400 Body weight 118.62 kg Bradly Hritz MASTER AUTOMOTIVE TECHNICIAN.[employer] Work Phone: [facility] 11-26-2024 14:17-0400 Diastolic blood pressure 84 mm[Hg] Bradly Hritz MASTER AUTOMOTIVE TECHNICIAN.[employer] Work Phone: [facility] 11-26-2024 14:17-0400 Systolic blood pressure 134 mm[Hg] Bradly Hritz MASTER AUTOMOTIVE TECHNICIAN.[employer] Work Phone: [facility] 11-21-2024 13:18-0400 Body temperature 98.4 [degF] Treatment Wstr Work Phone: [facility] 11-21-2024 13:18-0400 Diastolic blood pressure 83 mm[Hg] Treatment Wstr Work Phone: [facility] 11-21-2024 13:18-0400 Heart rate 85 /min Treatment Wstr Work Phone: [facility] 11-21-2024 13:18-0400 SaO2% (BldA) [Mass fraction] 100 % Treatment Wstr Work Phone: [facility] 11-21-2024 13:18-0400 Systolic blood pressure 123 mm[Hg] Treatment Wstr Work Phone: [facility] 11-14-2024 08:14-0400 Body temperature 97.9 [degF] Treatment Wstr Work Phone: [facility] 11-14-2024 08:14-0400 Diastolic blood pressure 87 mm[Hg] Treatment Wstr Work Phone: [facility] 11-14-2024 08:14-0400 Heart rate 73 /min Treatment Wstr Work Phone: [facility] 11-14-2024 08:14-0400 Respiratory rate 16 /min Treatment Wstr Work Phone: [facility] 11-14-2024 08:14-0400 SaO2% (BldA) [Mass fraction] 98 % Treatment Wstr Work Phone: [facility] 11-14-2024 08:14-0400 Systolic blood pressure 124 mm[Hg] Treatment Wstr Work Phone: [facility] 10-31-2024 07:38-0400 Body temperature 98.2 [degF] Treatment Wstr Work Phone: [facility] 10-31-2024 07:38-0400 Diastolic blood pressure 86 mm[Hg] Treatment Wstr Work Phone: [facility] 10-31-2024 07:38-0400 Heart rate 70 /min Treatment Wstr Work Phone: [facility] 10-31-2024 07:38-0400 Respiratory rate 14 /min Treatment Wstr Work Phone: [facility] 10-31-2024 07:38-0400 SaO2% (BldA) [Mass fraction] 97 % Treatment Wstr Work Phone: [facility] 10-31-2024 07:38-0400 Systolic blood pressure 126 mm[Hg] Treatment Wstr Work Phone: [facility] 08-26-2024 14:20-0500 Body mass index (BMI) [Ratio] 42.36 kg/m2 John Giles MASTER AUTOMOTIVE TECHNICIAN.[employer] Work Phone: [facility] 08-26-2024 14:20-0500 Body weight 119 kg John Giles MASTER AUTOMOTIVE TECHNICIAN.[employer] Work Phone: [facility] 08-26-2024 14:20-0500 Diastolic blood pressure 84 mm[Hg] John Giles MASTER AUTOMOTIVE TECHNICIAN.[employer] Work Phone: [facility] 08-26-2024 14:20-0500 Heart rate 83 /min John Giles MASTER AUTOMOTIVE TECHNICIAN.[employer] Work Phone: [facility] 08-26-2024 14:20-0500 Systolic blood pressure 121 mm[Hg] John Giles MASTER AUTOMOTIVE TECHNICIAN.[employer] Work Phone: [facility] 08-25-2024 14:00-0500 Body temperature 98.8 [degF] Treatment Wstr Work Phone: [facility] 08-25-2024 14:00-0500 Diastolic blood pressure 83 mm[Hg] Treatment Wstr Work Phone: [facility] 08-25-2024 14:00-0500 Heart rate 79 /min Treatment Wstr Work Phone: [facility] 08-25-2024 14:00-0500 Systolic blood pressure 133 mm[Hg] Treatment Wstr Work Phone: [facility] 08-22-2024 08:59-0500 Body temperature 97.59 [degF] Treatment Wstr Work Phone: [facility] 08-22-2024 08:59-0500 Diastolic blood pressure 79 mm[Hg] Treatment Wstr Work Phone: [facility] 08-22-2024 08:59-0500 Heart rate 71 /min Treatment Wstr Work Phone: [facility] 08-22-2024 08:59-0500 SaO2% (BldA) [Mass fraction] 100 % Treatment Wstr Work Phone: [facility] 08-22-2024 08:59-0500 Systolic blood pressure 120 mm[Hg] Treatment Wstr Work Phone: [facility] 08-20-2024 13:00-0500 Body temperature 98.4 [degF] Treatment Wstr Work Phone: [facility] 08-20-2024 13:00-0500 Diastolic blood pressure 80 mm[Hg] Treatment Wstr Work Phone: [facility] 08-20-2024 13:00-0500 Heart rate 74 /min Treatment Wstr Work Phone: [facility] 08-20-2024 13:00-0500 Systolic blood pressure 122 mm[Hg] Treatment Wstr Work Phone: [facility] 08-15-2024 09:07-0500 Body temperature 98.49 [degF] Treatment Wstr Work Phone: [facility] 08-15-2024 09:07-0500 Diastolic blood pressure 76 mm[Hg] Treatment Wstr Work Phone: [facility] 08-15-2024 09:07-0500 Heart rate 85 /min Treatment Wstr Work Phone: [facility] 08-15-2024 09:07-0500 SaO2% (BldA) [Mass fraction] 98 % Treatment Wstr Work Phone: [facility] 08-15-2024 09:07-0500 Systolic blood pressure 115 mm[Hg] Treatment Wstr Work Phone: [facility] 07-17-2024 13:42-0500 Body height 167.6 cm John Giles APRN.[employer] Work Phone: [facility] 07-17-2024 13:42-0500 Body mass index (BMI) [Ratio] 41.3 kg/m2 John Giles APRN.[employer] Work Phone: [facility] 01-02-2025 13:42-0500 Body weight 116 kg Johnzurdo Giles APRN.[employer] Work Phone: [facility] 07-17-2024 13:42-0500 Diastolic blood pressure 81 mm[Hg] John Chan MASTER AUTOMOTIVE TECHNICIAN.[employer] Work Phone: [facility] 07-17-2024 13:42-0500 Heart rate 83 /min John Giles APRN.[employer] Work Phone: [facility] 07-17-2024 13:42-0500 Systolic blood pressure 125 mm[Hg] John Giles APRN.[employer] Work Phone: [facility] 07-14-2024 08:40-0500 Body mass index (BMI) [Ratio] 41.9 kg/m2 Jimenez Olivarez APRN.[employer] Work Phone: [facility] 07-14-2024 08:40-0500 Body temperature 98.1 [degF] Jimenez Olivarez APRN.[employer] Work Phone: [facility] 07-14-2024 08:40-0500 Body weight 117.7 kg Jimenez Olivarez APRN.[employer] Work Phone: [facility] 07-14-2024 08:40-0500 Diastolic blood pressure 80 mm[Hg] Jimenez Olivarez APRN.[employer] Work Phone: [facility] 07-14-2024 08:40-0500 Heart rate 94 /min Jimenez Olivarez APRN.[employer] Work Phone: [facility] 07-14-2024 08:40-0500 Respiratory rate 16 /min Jimenez Olivarez APRN.[employer] Work Phone: [facility] 07-14-2024 08:40-0500 SaO2% (BldA) [Mass fraction] 97 % Jimenez Olivarez APRN.[employer] Work Phone: [facility] 07-14-2024 08:40-0500 Systolic blood pressure 126 mm[Hg] Jimenez Olivarez APRN.[employer] Work Phone: [facility] 08-27-2023 09:54-0500 Body height 167.6 cm Pulm Wstr Work Phone: [facility] 08-27-2023 09:54-0500 Body weight 107.5 kg Pulm Wstr Work Phone: [facility] 08-27-2023 09:54-0500 Heart rate 90 /min Pulm Wstr Work Phone: [facility] 08-27-2023 09:54-0500 Respiratory rate 14 /min Pulm Wstr Work Phone: [facility] 08-27-2023 09:54-0500 SaO2% (BldA) [Mass fraction] 99 % Pulm Wstr Work Phone: [facility] 08-22-2023 14:15-0500 Body weight 108.4 kg John Rick MASTER AUTOMOTIVE TECHNICIAN.[employer] Work Phone: [facility] 08-22-2023 14:15-0500 Diastolic blood pressure 61 mm[Hg] John Rick MASTER AUTOMOTIVE TECHNICIAN.[employer] Work Phone: [facility] 08-22-2023 14:15-0500 Heart rate 91 /min John Rick MASTER AUTOMOTIVE TECHNICIAN.[employer] Work Phone: [facility] 08-22-2023 14:15-0500 Systolic blood pressure 107 mm[Hg] John Rick MASTER AUTOMOTIVE TECHNICIAN.[employer] Work Phone: [facility] 08-20-2023 12:49-0500 Body temperature 98.2 [degF] Jennifer Slabaugh PA-C Work Phone: [facility] 08-20-2023 12:49-0500 Body weight 108.65 kg Jennifer Slabaugh PA-C Work Phone: [facility] 08-20-2023 12:49-0500 Heart rate 91 /min Jennifer Slabaugh PA-C Work Phone: [facility] 08-20-2023 12:49-0500 Respiratory rate 16 /min Jennifer Slabaugh PA-C Work Phone: [facility] 08-20-2023 12:49-0500 SaO2% (BldA) [Mass fraction] 100 % Jennifer Que PA-C Work Phone: [facility] 06-22-2023 13:50-0500 Body temperature 98.8 [degF] Chika Athy PA-C Work Phone: [facility] 06-22-2023 13:50-0500 Body weight 109.05 kg Chika Athy PA-C Work Phone: [facility] 06-22-2023 13:50-0500 Diastolic blood pressure 83 mm[Hg] Chika Athy PA-C Work Phone: [facility] 06-22-2023 13:50-0500 Heart rate 95 /min Chika Athy PA-C Work Phone: [facility] 06-22-2023 13:50-0500 Respiratory rate 18 /min Chika Athy PA-C Work Phone: [facility] 06-22-2023 13:50-0500 SaO2% (BldA) [Mass fraction] 100 % Chika Athy PA-C Work Phone: [facility] 06-22-2023 13:50-0500 Systolic blood pressure 139 mm[Hg] Chika Athy PA-C Work Phone: [facility] 02-24-2023 23:25-0400 Heart rate 69 /min [facility] 02-24-2023 23:25-0400 Respiratory rate 16 /min [facility] 02-24-2023 23:25-0400 SaO2% (BldA) [Mass fraction] 99 % [facility] 02-24-2023 21:50-0400 Body height 165.1 cm [facility] 02-24-2023 21:50-0400 Body mass index (BMI) [Ratio] 39 kg/m2 [facility] 02-24-2023 21:50-0400 Body temperature 97.5 [degF] [facility] 02-24-2023 21:50-0400 Body weight 106.41 kg [facility] 02-24-2023 21:50-0400 Diastolic blood pressure 87 mm[Hg] [facility] 02-24-2023 21:50-0400 Systolic blood pressure 125 mm[Hg] [facility] 01-26-2023 15:37-0400 Body height 165.1 cm Yissel Reed MASTER AUTOMOTIVE TECHNICIAN.[employer] Work Phone: [facility] 01-26-2023 15:37-0400 Body temperature 97.3 [degF] Yissel Reed MASTER AUTOMOTIVE TECHNICIAN.[employer] Work Phone: [facility] 01-26-2023 15:37-0400 Body weight 104.78 kg Yissel Reed MASTER AUTOMOTIVE TECHNICIAN.[employer] Work Phone: [facility] 01-26-2023 15:37-0400 Diastolic blood pressure 86 mm[Hg] Yissel Reed MASTER AUTOMOTIVE TECHNICIAN.[employer] Work Phone: [facility] 01-26-2023 15:37-0400 Heart rate 98 /min Yissel Reed MASTER AUTOMOTIVE TECHNICIAN.[employer] Work Phone: [facility] 01-26-2023 15:37-0400 Respiratory rate 16 /min Yissel Reed MASTER AUTOMOTIVE TECHNICIAN.[employer] Work Phone: [facility] 01-26-2023 15:37-0400 SaO2% (BldA) [Mass fraction] 98 % Yissel Reed MASTER AUTOMOTIVE TECHNICIAN.[employer] Work Phone: [facility] 01-26-2023 15:37-0400 Systolic blood pressure 125 mm[Hg] Yissel Reed MASTER AUTOMOTIVE TECHNICIAN.[employer] Work Phone: [facility] 01-24-2023 10:08-0400 Body height 165.1 cm Evelyn Donald MASTER AUTOMOTIVE TECHNICIAN.[employer] Work Phone: [facility] 01-24-2023 10:08-0400 Body temperature 98.49 [degF] Evelyn Donald MASTER AUTOMOTIVE TECHNICIAN.[employer] Work Phone: [facility] 01-24-2023 10:08-0400 Body weight 105.05 kg Evelyn Donald MASTER AUTOMOTIVE TECHNICIAN.[employer] Work Phone: [facility] 01-24-2023 10:08-0400 Diastolic blood pressure 78 mm[Hg] Evelyn Donald MASTER AUTOMOTIVE TECHNICIAN.[employer] Work Phone: [facility] 01-24-2023 10:08-0400 Heart rate 99 /min Evelyn Donald MASTER AUTOMOTIVE TECHNICIAN.[employer] Work Phone: [facility] 01-24-2023 10:08-0400 Respiratory rate 18 /min Evelyn Donald MASTER AUTOMOTIVE TECHNICIAN.[employer] Work Phone: [facility] 01-24-2023 10:08-0400 SaO2% (BldA) [Mass fraction] 97 % Evelyn Donald MASTER AUTOMOTIVE TECHNICIAN.[employer] Work Phone: [facility] 01-24-2023 10:08-0400 Systolic blood pressure 111 mm[Hg] Evelyn Donald MASTER AUTOMOTIVE TECHNICIAN.[employer] Work Phone: [facility] 11-13-2022 14:44-0400 Body weight 108.86 kg John Rick MASTER AUTOMOTIVE TECHNICIAN.[employer] Work Phone: [facility] 11-13-2022 14:44-0400 Diastolic blood pressure 76 mm[Hg] John Rick MASTER AUTOMOTIVE TECHNICIAN.[employer] Work Phone: [facility] 11-13-2022 14:44-0400 Heart rate 84 /min John Rick MASTER AUTOMOTIVE TECHNICIAN.[employer] Work Phone: [facility] 11-13-2022 14:44-0400 Systolic blood pressure 113 mm[Hg] John Rick MASTER AUTOMOTIVE TECHNICIAN.[employer] Work Phone: [facility] 06-01-2022 14:20-0500 Body height 165.1 cm John Rick MASTER AUTOMOTIVE TECHNICIAN.[employer] Work Phone: [facility] 06-01-2022 14:20-0500 Body temperature 97.81 [degF] John Rick MASTER AUTOMOTIVE TECHNICIAN.[employer] Work Phone: [facility] 06-01-2022 14:20-0500 Body weight 108.86 kg John Rick MASTER AUTOMOTIVE TECHNICIAN.[employer] Work Phone: [facility] 06-01-2022 14:20-0500 Diastolic blood pressure 73 mm[Hg] John Rick MASTER AUTOMOTIVE TECHNICIAN.[employer] Work Phone: [facility] 06-01-2022 14:20-0500 Heart rate 104 /min John Rick MASTER AUTOMOTIVE TECHNICIAN.[employer] Work Phone: [facility] 06-01-2022 14:20-0500 SaO2% (BldA) [Mass fraction] 97 % John Rick MASTER AUTOMOTIVE TECHNICIAN.[employer] Work Phone: [facility] 06-01-2022 14:20-0500 Systolic blood pressure 113 mm[Hg] John Rick MASTER AUTOMOTIVE TECHNICIAN.[employer] Work Phone: [facility] 04-05-2022 15:24-0400 Body height 165.1 cm John Rick MASTER AUTOMOTIVE TECHNICIAN.[employer] Work Phone: [facility] 04-05-2022 15:24-0400 Body weight 112.95 kg John Rick MASTER AUTOMOTIVE TECHNICIAN.[employer] Work Phone: [facility] 04-05-2022 15:24-0400 Diastolic blood pressure 63 mm[Hg] John Rick MASTER AUTOMOTIVE TECHNICIAN.[employer] Work Phone: [facility] 04-05-2022 15:24-0400 Heart rate 94 /min John Rick MASTER AUTOMOTIVE TECHNICIAN.CAKE PUNCHER Work Phone: [facility] 04-05-2022 15:24-0400 Systolic blood pressure 100 mm[Hg] John Rick MASTER AUTOMOTIVE TECHNICIAN.CAKE PUNCHER Work Phone: [facility] 03-31-2022 10:52-0400 Body height 165.1 cm Pati STEPHENS-C Work Phone: [facility] 03-31-2022 10:52-0400 Body weight 100.7 kg Pati STEPHENS-C Work Phone: [facility] 03-21-2022 14:08-0400 Body height 165.1 cm Marguerite Boni MASTER AUTOMOTIVE TECHNICIAN.CAKE PUNCHER Work Phone: [facility] 03-21-2022 14:08-0400 Body weight 100.7 kg Marguerite Donisan MASTER AUTOMOTIVE TECHNICIAN.CAKE PUNCHER Work Phone: [facility] 03-13-2022 15:53-0400 Body height 165.1 cm Mark Boyer MD Work Phone: [facility] 03-13-2022 15:53-0400 Body weight 100.7 kg Mark Boyer MD Work Phone: [facility] 02-27-2022 13:02-0400 Body height 165.1 cm Mark Boyer MD Work Phone: [facility] 02-27-2022 13:02-0400 Body weight 100.25 kg Mark Boyer MD Work Phone: [facility] 02-15-2022 10:25-0400 Body height 165.1 cm Pati Chopra PA-C Work Phone: [facility] 02-15-2022 10:25-0400 Body weight 102.29 kg Pati Chopra PA-C Work Phone: [facility] 02-13-2022 17:18-0400 Body height 165.1 cm Hill Ball MASTER AUTOMOTIVE TECHNICIAN.CAKE PUNCHER Work Phone: [facility] 02-13-2022 17:18-0400 Body weight 102.06 kg Hill Ball MASTER AUTOMOTIVE TECHNICIAN.CAKE PUNCHER Work Phone: [facility] 02-13-2022 17:18-0400 Diastolic blood pressure 64 mm[Hg] Hill Ball MASTER AUTOMOTIVE TECHNICIAN.CAKE PUNCHER Work Phone: [facility] 02-13-2022 17:18-0400 Heart rate 86 /min Hill Ball MASTER AUTOMOTIVE TECHNICIAN.CAKE PUNCHER Work Phone: [facility] 02-13-2022 17:18-0400 Respiratory rate 16 /min Hill Ball MASTER AUTOMOTIVE TECHNICIAN.CAKE PUNCHER Work Phone: [facility] 02-13-2022 17:18-0400 SaO2% (BldA) [Mass fraction] 98 % Hillnando Sandoval MASTER AUTOMOTIVE TECHNICIAN.CAKE PUNCHER Work Phone: [facility] 02-13-2022 17:18-0400 Systolic blood pressure 105 mm[Hg] Hill Sandoval APRN.CAKE PUNCHER Work Phone: [facility] 02-10-2022 07:40-0400 Body height 165.1 cm [facility] Work Phone: 02-10-2022 07:40-0400 Body mass index (BMI) [Ratio] 37.8 kg/m2 [facility] Work Phone: 02-10-2022 07:40-0400 Body temperature 97.8 [degF] [facility] Work Phone: 02-10-2022 07:40-0400 Body weight 103.1 kg [facility] Work Phone: 02-10-2022 07:40-0400 Diastolic blood pressure 105 mm[Hg] [facility] Work Phone: 02-10-2022 07:40-0400 Heart rate 94 /min [facility] Work Phone: 02-10-2022 07:40-0400 Respiratory rate 17 /min [facility] Work Phone: 02-10-2022 07:40-0400 SaO2% (BldA) [Mass fraction] 100 % [facility] Work Phone: 02-10-2022 07:40-0400 Systolic blood pressure 152 mm[Hg] [facility] Work Phone: 01-30-2022 15:12-0400 Body height 165.1 cm Pati STEPHENS-C Work Phone: [facility] 01-30-2022 15:12-0400 Body temperature 97.9 [degF] Pati STEPHENS-C Work Phone: [facility] 01-30-2022 15:12-0400 Body weight 103.42 kg Pati Sankovic PA-C Work Phone: [facility] 01-30-2022 15:12-0400 Diastolic blood pressure 76 mm[Hg] Pati Sankovic PA-C Work Phone: [facility] 01-30-2022 15:12-0400 Heart rate 71 /min Pati Sankovic PA-C Work Phone: [facility] 01-30-2022 15:12-0400 Respiratory rate 16 /min Pati Sankovic PA-C Work Phone: [facility] 01-30-2022 15:12-0400 SaO2% (BldA) [Mass fraction] 99 % Pati Sankovic PA-C Work Phone: [facility] 01-30-2022 15:12-0400 Systolic blood pressure 128 mm[Hg] Pati Sankovic PA-C Work Phone: [facility] 01-09-2022 07:30-0400 Body height 165.1 cm [facility] Work Phone: 01-09-2022 07:30-0400 Body mass index (BMI) [Ratio] 39.3 kg/m2 [facility] Work Phone: 01-09-2022 07:30-0400 Body temperature 98.1 [degF] [facility] Work Phone: 01-09-2022 07:30-0400 Body weight 107.3 kg [facility] Work Phone: 01-09-2022 07:30-0400 Diastolic blood pressure 92 mm[Hg] [facility] Work Phone: 01-09-2022 07:30-0400 Heart rate 69 /min [facility] Work Phone: 01-09-2022 07:30-0400 Respiratory rate 17 /min [facility] Work Phone: 01-09-2022 07:30-0400 SaO2% (BldA) [Mass fraction] 100 % [facility] Work Phone: 01-09-2022 07:30-0400 Systolic blood pressure 132 mm[Hg] [facility] Work Phone: Encounters Encounter Date Encounter Type Care Provider Facility Start: 03-12-2025 Non-patient / Non-visit Dr. Miri [facility]OME [facility] Start: 03-12-2025 Evaluation and manag ement of inpatient Dr. Micky Justin MD -[facility] 3 Work Phone: Start: 03-12-[address] Jayant Hunter MD Work Phone: -[facility] Surgical 3 Start: 02-26-2025 End: 02-26-2025 Office outpatient visit 25 minutes John Vivas DO Work Phone: [facility]etrics [facility] Gyne[facility] Comment on above: Abnormal uterine ble eding (AUB) (Primary Dx); Iron deficiency anemia due to chronic blood loss Start: 02-26-2025 End: 02-26-[facility] Start: 02-04-2025 End: 02-05-2025 ambulatory LANEY HUNTER Facility:[facility] Start: 01-26-2025 End: 01-26-2025 Office outpatient visit 15 minutes John Vivas DO Work Phone: [facility]etrics [facility] Gynecology [facility] Comment on above: Abnormal uterine ble eding (AUB) (Primary Dx) Start: 01-26-2025 End: 01-26-20[facility] Start: 01-26-2025 End: 02-09-2025 Chart abstracting [facility] Work Phone: Neurology Start: 01-20-2025 End: 01-20-2025 [facility] Start: 01-13-2025 End: 01-13-2025 Office outpatient visit 25 minutes Hill Mendoza APRN.ARPIT Work Phone: Hematology/Oncology Comment on above: Iron deficiency anem ia due to chronic blood loss (Primary Dx); Other vitamin B12 deficiency anemia Start: 01-13-2025 End: 01-13-2025 ambulatory LANEY HUNTER Facility:[facility] Start: 01-09-2025 End: 01-09-2025 ambulatory LANEY HUNTER Facility:[facility] Start: 01-08-2025 End: 01-08-2025 Telemedicine consultation with patient John Chan GARCIA.CAKE PUNCHER Work Phone: [facility] Start: 01-08-2025 End: 01-08-2025 ambulatory John Giles APRN.CAKE PUNCHER Work Phone: [facility] Comment on above: Morbid obesity with BMI of 40.0-44.9, adult (HCC) (Primary Dx); Fatigue, unspecified type; Snoring; Vitamin D deficiency; Prediabetes Start: 01-02-2025 End: 03-04-2025 Follow-up encounter John Vivas DO Work Phone: [facility] [employer] Comment on above: Pap Smear, HPV High Risk PCR Start: 12-29-2024 End: 12-29-2024 Telephone encounter Brad[facility]N.CNP [facility] Start: 12-29-2024 End: 12-29-2024 Telemedicine consultation with patient Bradly Roy APRN.CAKE PUNCHER Work Phone: [facility] [place] Start: 12-29-2024 End: 12-29-2024 ambulatory Bradly Roy APRN.CAKE PUNCHER Work Phone: [facility] Comment on above: Gastroesophageal ref lux disease, unspecified whether esophagitis present (Primary Dx); Hiatal hernia; Constipation, unspecified constipation type; Obesity, Class III, BMI >= 40 Start: 12-25-2024 End: 12-25-2024 Initial preventive medicine new pt age 18-39yrs John Vivas DO Work Phone: [facility] [place] Comment on above: Well woman exam with routine gynecological exam (Primary Dx); Cervical cancer screening; Abnormal uterine bleeding (AUB) Start: 12-25-2024 End: 12-25-2024 Patient encounter procedure John Vivas DO Work Phone: [facility] Start: 12-25-2024 End: 12-25-2024 ambulatory JOHN VIVAS [facility] Start: 12-10-2024 End: 12-10-2024 Orders Only Daniel Hardin DO Work Phone: General Surgery Comment on above: Gastroesophageal ref lux disease, unspecified whether esophagitis present [K21.9] Start: 11-26-2024 End: 11-26-2024 Office outpatient new 30 minutes Bradly Roy APRN.CAKE PUNCHER Work Phone: [facility] [place] Comment on above: Gastroesophageal ref lux disease, unspecified whether esophagitis present (Primary Dx); Hiatal hernia; Anemia, unspecified type Start: 11-26-2024 End: 11-26-2024 ambulatory LANEY HUNTER Facility:[facility] Start: 11-21-2024 End: 11-21-2024 ambulatory LANEY HUNTER Facility:[facility] Start: 11-21-2024 End: 11-21-2024 ambulatory Treatment Rm 15 [facility] Work Phone: Hematology/Oncology Comment on above: Iron deficiency anem ia due to chronic blood loss (Primary Dx) Start: 11-14-2024 End: 11-14-2024 ambulatory Treatment Rm 15 [facility] Work Phone: Hematology/Oncology Comment on above: Iron deficiency anem ia due to chronic blood loss (Primary Dx) Start: 11-07-2024 End: 11-07-2024 ambulatory LANEY HUNTER Facility:[facility] Start: 10-31-2024 End: 10-31-2024 ambulatory Treatment Rm 16 [facility] Work Phone: Hematology/Oncology Comment on above: Iron deficiency anem ia due to chronic blood loss (Primary Dx) Start: 10-15-2024 End: 10-15-2024 Telephone encounter Tyron Abdullahi MD Work Phone: Hematology/Oncology Comment on above: Appointment Start: 10-14-2024 End: 10-14-2024 Office outpatient visit 25 minutes Hill Mendoza APRN.CAKE PUNCHER Work Phone: Hematology/Oncology Comment on above: Iron deficiency anem ia due to chronic blood loss (Primary Dx); Other vitamin B12 deficiency anemia; Anemia, unspecified type Start: 10-14-2024 End: 10-14-2024 ambulatory LANEY R KONTAK Facility:[facility] Start: 10-12-2024 End: 12-12-2024 Follow-up encounter Hill Mendoza APRN.CAKE PUNCHER Work Phone: Hematology/Oncology Start: 10-11-2024 End: 10-11-2024 ambulatory LANEY R KONTAK Facility:[facility] Start: 08-26-2024 End: 08-26-2024 ambulatory LANEY R KONTAK Facility:[facility] Start: 08-26-2024 End: 08-26-2024 Office outpatient visit 25 minutes John Giles APRN.CAKE PUNCHER Work Phone: [facility] Comment on above: Foot pain, bilateral (Primary Dx); Menorrhagia with regular cycle; Gastroesophageal reflux disease without esophagitis Start: 08-25-2024 End: 08-26-2024 ambulatory Treatment Rm 15 [facility] [employer] Work Phone: Hematology/Oncology Comment on above: Iron deficiency anem ia due to chronic blood loss (Primary Dx) Start: 08-22-2024 End: 08-22-2024 ambulatory Treatment Rm 18 [facility] [employer] Work Phone: Hematology/Oncology Comment on above: Iron deficiency anem ia due to chronic blood loss (Primary Dx) Start: 08-20-2024 End: 08-20-2024 ambulatory Treatment Rm 16 [facility] Work Phone: Hematology/Oncology Comment on above: Iron deficiency anem ia due to chronic blood loss (Primary Dx) Start: 08-15-2024 End: 08-15-2024 ambulatory Treatment Rm 16 [facility] Work Phone: Hematology/Oncology Comment on above: Anemia, unspecified type (Primary Dx); Iron deficiency anemia due to chronic blood loss Start: 08-08-2024 End: 08-11-2024 Telephone encounter Hill Mendoza APRN.CAKE PUNCHER Work Phone: Hematology/Oncology Comment on above: Appointment Start: 08-07-2024 End: 08-07-2024 ambulatory Hill Mendoza APRN.CAKE PUNCHER Work Phone: Hematology/Oncology Comment on above: Labs Start: 08-07-2024 End: 08-07-2024 E-mail encounter from caregiver Hill Mendoza APRN.CAKE PUNCHER Work Phone: Hematology/Oncology Start: 08-06-2024 End: 08-06-2024 ambulatory Hill Mendoza APRN.CAKE PUNCHER Work Phone: Hematology/Oncology Start: 08-06-2024 End: 08-06-2024 E-mail encounter from caregiver Hill Mendoza APRN.CAKE PUNCHER Work Phone: Hematology/Oncology Start: 08-02-2024 End: 08-02-2024 ambulatory LANEY HUNTER Facility:[facility] Start: 08-01-2024 End: 08-01-2024 ambulatory LANEY HUNTER Facility:[facility] Start: 08-01-2024 End: 08-01-2024 Office outpatient new 45 minutes [facility] Comment on above: Iron deficiency anem ia due to chronic blood loss (Primary Dx); Anemia, unspecified type Start: 07-30-2024 End: 07-31-2024 Telephone encounter John Giles APRN.CAKE PUNCHER Work Phone: [facility] Comment on above: Results; Orders Start: 07-28-2024 End: 07-28-2024 ambulatory LANEY HUNTER Facility:[facility] Start: 07-17-2024 End: 07-17-2024 ambulatory LANEY HUNTER Facility:[facility] Start: 07-17-2024 End: 07-17-2024 Office outpatient visit 25 minutes John Giles APRN.CAKE PUNCHER Work Phone: [facility] Comment on above: Gastroesophageal ref lux disease without esophagitis (Primary Dx); Epigastric pain; Chest pain, unspecified type; Low TSH level; Anemia, unspecified type; Vitamin D deficiency; Screening for diabetes mellitus; Screening for lipid disorders Start: 07-15-2024 End: 07-15-2024 Telephone encounter Barak Rowley MD Work Phone: [facility] Comment on above: Results (BV+) Start: 07-14-2024 End: 07-14-2024 ambulatory LANEY HUNTER Facility:[facility] Start: 07-14-2024 End: 07-14-2024 Patient encounter procedure Jimenez Olivarez APRN.CAKE PUNCHER Work Phone: [facility] Comment on above: Vaginal itching (Asha marilee Dx) Start: 07-07-2024 End: 07-07-2024 Telephone encounter Laney Hunter MD Work Phone: [facility] Comment on above: Received Outside Med ical Records ([facility]) Start: 07-05-2024 End: 07-05-2024 Emergency department patient visit Jayant Astudillo Facility:[facility] Start: 12-27-2023 Telephone encounter Laney Hunter MD Work Phone: [facility] Comment on above: Received Outside Med ical Records ([facility] 12/25) Start: 12-26-2023 End: 12-26-2023 Emergency department patient visit Jesus Meza Facility:[facility] Start: 08-27-2023 Telephone encounter John dejesus MASTER AUTOMOTIVE TECHNICIAN.CAKE PUNCHER Work Phone: [facility] Comment on above: Orders Start: 08-27-2023 End: 08-27-2023 ambulatory [facility] Work Phone: [facility] Comment on above: Spirometry Start: 08-27-2023 End: 08-27-2023 Patient encounter procedure [facility] Work Phone: [facility] Start: 08-24-2023 Patient encounter procedure Efren Gomez MD Work Phone: Endocrinology Start: 08-23-2023 ambulatory John Sanchez MASTER AUTOMOTIVE TECHNICIAN.CAKE PUNCHER Work Phone: [facility] Start: 08-23-2023 Telephone encounter John dejesus MASTER AUTOMOTIVE TECHNICIAN.CAKE PUNCHER Work Phone: [facility] Comment on above: Orders Results; Orders Start: 08-22-2023 End: 08-22-2023 Office outpatient visit 25 minutes John Sanchez MASTER AUTOMOTIVE TECHNICIAN.CAKE PUNCHER Work Phone: [facility] Comment on above: Persistent cough for 3 weeks or longer (Primary Dx); Chronic nasal congestion; Gastroesophageal reflux disease without esophagitis; Microscopic hematuria; Fatigue, unspecified type; History of anemia; Continuous tobacco abuse; Acute bilateral back pain, unspecified back location Start: 08-20-2023 End: 08-20-2023 Patient encounter procedure Jennifer Grey PA-C Work Phone: [facility] Comment on above: Urinary symptom or s ign (Primary Dx); Viral syndrome; Bilateral flank pain; Persistent cough for 3 weeks or longer; Microscopic hematuria Start: 07-04-2023 End: 07-04-2023 Subsequent hospital visit by physician [facility] Work Phone: Radiology Comment on above: Cough present for gr eater than 3 weeks [R05.8] Start: 06-22-2023 End: 06-22-2023 Patient encounter procedure Chika Rivas PA-C Work Phone: [facility] Comment on above: Sinobronchitis (Prim dylan Dx) Start: 02-26-2023 Telephone encounter Laney Hunter MD Work Phone: [facility] Comment on above: Medication Problem Received Outside Med ical Records (ED [facility], summary imaging 02/24/23) Start: 02-24-2023 End: 02-24-2023 Emergency department patient visit [facility] Work Phone: Start: 01-27-2023 End: 01-27-2023 Subsequent hospital visit by physician [facility] Work Phone: Radiology Comment on above: SOB (shortness of br eath) [R06.02] Start: 01-26-2023 End: 01-26-2023 Patient encounter procedure Yissel Reed APRN.CAKE PUNCHER Work Phone: [facility] Comment on above: Pharyngitis, unspeci fied etiology (Primary Dx); Viral upper respiratory tract infection with cough; SOB (shortness of breath) Start: 01-24-2023 End: 01-24-2023 Patient encounter procedure Evelyn Donald MASTER AUTOMOTIVE TECHNICIAN.CAKE PUNCHER Work Phone: [facility] Comment on above: Viral URI with cough (Primary Dx); Sore throat; Flu-like symptoms; Smoker Start: 11-13-2022 End: 11-13-2022 Office outpatient visit 25 minutes John Sanchez APRN.ARPIT Work Phone: [facility] Comment on above: Paresthesia of left arm (Primary Dx); Weakness of right hand; Left arm pain Start: 06-01-2022 End: 06-01-2022 Office outpatient visit 15 minutes John Sanchez APRN.ARPIT Work Phone: [facility] Comment on above: Eczema of right eyel id (Primary Dx) Start: 06-01-2022 Refill John Sanchez APRN.ARPIT Work Phone: [facility] Comment on above: Refill Request Start: 05-04-2022 Refill John Sanchez APRN.CAKE PUNCHER Work Phone: [facility] Comment on above: Refill Request Start: 04-28-2022 ambulatory Mark Boyer MD Work Phone: Colorectal Surgery Comment on above: Return to work Start: 04-24-2022 End: 04-24-2022 Patient encounter procedure Mark Boyer MD Work Phone: Colorectal Surgery Comment on above: Hiatal hernia with g astroesophageal reflux (Primary Dx); Anal fissure; Constipation, chronic Start: 04-24-2022 ambulatory Mark Boyer MD Work Phone: Colorectal Surgery Comment on above: Work papers Start: 04-24-2022 Chart abstracting Lorraine Marx RN Colorectal Surgery Comment on above: Constipation, chroni c (Primary Dx); Chronic anal fissure Start: 04-05-2022 End: 04-05-2022 Office outpatient visit 25 minutes John Sanchez MASTER AUTOMOTIVE TECHNICIAN.CAKE PUNCHER Work Phone: [facility] Comment on above: URI, acute (Primary Dx); ETD (Eustachian tube dysfunction), bilateral Start: 03-31-2022 ambulatory Mark Boyer MD Work Phone: Colorectal Surgery Start: 03-31-2022 End: 03-31-2022 Patient encounter procedure Pati Chopra PA-C Work Phone: Colorectal Surgery Comment on above: Chronic anal fissure (Primary Dx); Constipation, unspecified constipation type Start: 03-30-2022 Admission to [facility] Mark Boyer MD Work Phone: Colorectal Surgery Comment on above: Post surgery Start: 03-30-2022 ambulatory Mark Boyer MD Work Phone: [facility] Start: 03-27-2022 ambulatory Marguerite alcantar MASTER AUTOMOTIVE TECHNICIAN.CAKE PUNCHER Work Phone: Colorectal Surgery Comment on above: Work note Start: 03-21-2022 End: 03-21-2022 Patient encounter procedure Marguerite Plata APRN.CAKE PUNCHER Work Phone: Colorectal Surgery Comment on above: Anal or rectal pain (Primary Dx) Start: 03-13-2022 End: 03-13-2022 Patient encounter procedure Mark Boyer MD Work Phone: Colorectal Surgery Comment on above: Chronic anal fissure Start: 03-13-2022 Telephone encounter Mark herron MD Work Phone: Colorectal Surgery Comment on above: Return To Work Lette r Start: 02-27-2022 End: 02-27-2022 Patient encounter procedure Mark Boyer MD Work Phone: Colorectal Surgery Comment on above: Chronic anal fissure (Primary Dx); Anal fissure Start: 02-21-2022 Chart abstracting Lorraine Marx RN Colorectal Surgery Start: 02-20-2022 ambulatory Mark Boyer MD Work Phone: Colorectal Surgery Start: 02-20-2022 Telephone encounter Laney Hunter MD Work Phone: [facility] Comment on above: disability forms ([employer]) Start: 02-15-2022 End: 02-15-2022 Patient encounter procedure Pati Chopra PA-C Work Phone: Colorectal Surgery Comment on above: Anal fissure (Primar y Dx) Start: 02-14-2022 Telephone encounter Pati ayoub PA-C Work Phone: Colorectal Surgery Comment on above: Pain Patient Question Start: 02-13-2022 End: 02-13-2022 Patient encounter procedure Hill Sandoval MASTER AUTOMOTIVE TECHNICIAN.CAKE PUNCHER Work Phone: [facility] Comment on above: Procedure not nathen d out (Primary Dx) Start: 02-13-2022 Telephone encounter Laney Hunter MD Work Phone: [facility] Comment on above: Received Outside Med [facility] Records (ED summary [facility]) Start: 02-10-2022 End: 02-10-2022 Emergency department patient visit [facility] Start: 01-30-2022 End: 01-30-2022 Patient encounter procedure Pati STEPHENS-C Work Phone: Colorectal Surgery Comment on above: Anal fissure (Primar y Dx); External hemorrhoid; Internal hemorrhoids Start: 01-20-2022 End: 01-20-2022 ambulatory Nurse Triage Mary/Andreina Work Phone: Nurse Phone Triage Comment on above: Nurse Triage Call (i nformation) Start: 01-10-2022 Telephone encounter Laney Hunter MD Work Phone: [facility] Comment on above: Received Outside Med ical Records ([facility]) Start: 01-09-2022 Telephone encounter Laney Hunter MD Work Phone: [facility] Comment on above: Medication Problem Start: 01-09-2022 End: 01-09-2022 Emergency department patient visit [facility] Start: 09-05-2021 End: 09-05-2021 Subsequent hospital visit by physician [facility] Work Phone: Radiology Comment on above: Coccydynia [M53.3] Start: 2020 End: 2020 Subsequent hospital visit by physician [facility] Work Phone: Radiology Comment on above: Positive FLEX (antinu clear antibody) [R76.8] Start: 10-01-2017 End: 10-01-2017 Ambulatory BRYNN XIONG Facility:[facility] Start: 09-24-2017 End: 09-24-2017 [facility] Start: 09-17-2017 End: 09-17-2017 Emergency department patient visit ELOY ArevaloDamián ELMAONEIL Facility:B Procedures Date Procedure Procedure Detail Performing Clinician Start: 03-12-2025 Computed tomography of abdomen and pelvis with intravenous contrast Dr. Richard Hunter MD Work Phone: Start: 03-12-[address] Randolph Hunter MD Work Phone: Start: 03-12-2025 Urnls dip stick/tablet reagent auto microscopy Dr. Richard Hunter MD Work Phone: Start: 12-25-2024 Adult depression screening assessment John Vivas DO Work Phone: Start: 12-25-2024 Microscopic observation [Identifier] in Cervix by Cyto stain John Vivas DO Work Phone: Start: 12-10-2024 Esophagogastroduodenoscopy transoral diagnostic Daniel Hardin DO Work Phone: Start: 07-17-2024 Ecg routine ecg w/least 12 lds i&r only John Giles MASTER AUTOMOTIVE TECHNICIAN.CAKE PUNCHER Work Phone: Start: 07-14-2024 Urnls dip stick/tablet rgnt auto w/o microscopy Pati Schroeder MASTER AUTOMOTIVE TECHNICIAN.CAKE PUNCHER Work Phone: Start: 08-27-2023 Brncdilat rspse spmtry pre&post-brncdilat admn John Rick MASTER AUTOMOTIVE TECHNICIAN.CAKE PUNCHER Work Phone: Start: 08-22-2023 Blood count complete automated John Ask ins MASTER AUTOMOTIVE TECHNICIAN.CAKE PUNCHER Work Phone: Start: 08-20-2023 Urnls dip stick/tablet rgnt auto w/o microscopy Jennifer Grey PA-C Work Phone: Start: 07-04-2023 Radiologic exam chest 2 views Yissel Reed A PRN.CAKE PUNCHER Work Phone: Start: 02-24-2023 Plain chest X-ray Start: 01-27-2023 Radiologic exam chest 2 views Yissel Reed A PRN.CAKE PUNCHER Work Phone: Start: 01-26-2023 STREP A MOLECULAR (POC) [facility] Provider Start: 01-24-2023 COVID WITH FLUA+B, ROUTINE Evelyn Donald MASTER AUTOMOTIVE TECHNICIAN.CAKE PUNCHER Work Phone: Start: 01-24-2023 STREP A MOLECULAR (POC) Evelyn Donald MASTER AUTOMOTIVE TECHNICIAN.CAKE PUNCHER Work Phone: Start: 01-10-2022 Adult depression screening assessment Laney Hunter MD Work Phone: Start: 09-05-2021 Radex sacrum & coccyx minimum 2 views Chika Rivas PADanii Work Phone: Start: 2020 Radex shoulder complete minimum 2 views Flex Sol MD Work Phone: Start: 2020 Radiologic exam chest 2 views Flex dye MD Work Phone: Start: 11-03-2020 Adult depression screening assessment Laney Hunter MD Work Phone: Plan of Treatment Date Care Activity Detail Author Start: 11-29-2062 RSV Immunization for Adults (1 - 1-dose 75+ series) RSV Immunization for Adults (1 - 1-dose 75+ series) [facility] Start: 11-29-2037 Zoster Vaccines (1 of 2) Zoster Vaccines (1 of 2) [facility] Start: 12-25-2029 Screening for malignant neoplasm of cervix [facility] Start: 06-09-2029 DTaP/Tdap/Td Vaccines (2 - Td or Tdap) DTaP/Tdap/Td Vaccines (2 - Td or Tdap) [facility] Start: 06-09-2029 Urine microalbumin profile [facility] Start: 12-26-2027 Screening for malignant neoplasm of cervix [facility] Start: 12-25-2025 Depression Screening Depression Screening [facility] Start: 05-28-2025 End: 05-28-2025 Patient encounter procedure 05/28/2025 3:00 PM EST Office Visit [facility] Obstetrics and Gynecology [address] [place] [phone] John Vivas, DO [address] [place] [address] [facility] Obstetrics and Gynecology [facility] Start: 05-14-2025 End: 05-14-2025 Admission to same day surgery center 05/14/2025 8:30 AM EDT - 05/14/2025 10:30 AM EDT Surgery [facility] [address] [place] [phone] John Vivas, DO [address] [place] [address] ROBOTIC ASSISTED TOTAL LAPAROSCOPIC HYSTERECTOMY, BILATERAL SALPINGECTOMY [72343 (CPT )] [facility] Comment on above: ROBOTIC ASSISTED TOTAL LAPAROSCOPIC HYST ERECTOMY, BILATERAL SALPINGECTOMY [43618 (CPT )] Start: 05-14-2025 End: 05-14-2025 Cystourethroscopy CYSTOSCOPY Abnormal uterine and vaginal bleeding, unspecified 05/14/2025 8:30 AM EDT [facility] Start: 05-14-2025 End: 05-14-2025 Laps total hysterect 250 gm/< w/rmvl tube/ovary ROBOTIC (XI), LAPAROSCOPIC, HYSTERECTOMY, TOTAL, WITH SALPINGO-OOPHORECTOMY IF INDICATED Abnormal uterine and vaginal bleeding, unspecified 05/14/2025 8:30 AM EDT [facility] Start: 05-14-2025 Subsequent hospital visit by physician 05/14/2025 8:30 AM EDT Hospital Encounter [facility] [address] [place] [phone] John Vivas DO [address] [place] [address] [facility] Start: 05-04-2025 End: 05-04-2025 Follow-up encounter 05/04/2025 10:30 AM EDT [facility] Gastroenterology [place] [address] [place] [phone] Bradly Roy APRN.CAKE PUNCHER [address] [place] [address] 4 month follow up Gastroenterology [place] Comment on above: 4 month follow up Start: 05-01-2025 End: 05-01-2025 Patient encounter procedure 05/01/2025 10:00 AM EDT Office Visit OB/Gynecology [address] [place] [address] [place] [address] [place] [address] Obesity, Class III, BMI 40-49.9 (morbid obesity) ([facility]) [E66.813] OB/Gynecology Comment on above: Obesity, Class III, BMI 40-49.9 (morbid obesity) ([facility]) [E66.813] Start: 05-01-2025 End: 05-01-2025 Admission to establishment 05/01/2025 8:00 AM EDT Pre-Admission Testing [facility] Pre-Admit Testing [address] [place] [phone] [facility] Start: 04-12-2025 End: 07-12-2025 CBC W Auto Differential panel - Blood COMPLETE BLOOD COUNT AND DIFFERENTIAL Lab Routine Other vitamin B12 deficiency anemia Iron deficiency anemia due to chronic blood loss Expected: 04/12/2025 (Approximate), Expires: 07/12/2025 [facility] Comment on above: Expected: 04/12/2025 (Approximate), Expi res: 07/12/2025 Start: 04-12-2025 End: 07-12-2025 Cobalamin (Vitamin B12) [Mass/volume] in Serum or Plasma VITAMIN B12 Lab Routine Other vitamin B12 deficiency anemia Iron deficiency anemia due to chronic blood loss Expected: 04/12/2025 (Approximate), Expires: 07/12/2025 [facility] Comment on above: Expected: 04/12/2025 (Approximate), Expi res: 07/12/2025 Start: 04-12-2025 End: 07-12-2025 Comprehensive metabolic 2000 panel - Serum or Plasma COMPREHENSIVE METABOLIC PANEL Lab Routine Other vitamin B12 deficiency anemia Iron deficiency anemia due to chronic blood loss Expected: 04/12/2025 (Approximate), Expires: 07/12/2025 [facility] Comment on above: Expected: 04/12/2025 (Approximate), Expi res: 07/12/2025 Start: 04-12-2025 End: 07-12-2025 Ferritin [Mass/volume] in Serum or Plasma FERRITIN Lab Routine Other vitamin B12 deficiency anemia Iron deficiency anemia due to chronic blood loss Expected: 04/12/2025 (Approximate), Expires: 07/12/2025 [facility] Comment on above: Expected: 04/12/2025 (Approximate), Expi res: 07/12/2025 Start: 04-12-2025 End: 07-12-2025 Folate [Mass/volume] in Serum or Plasma FOLATE, SERUM Lab Routine Other vitamin B12 deficiency anemia Iron deficiency anemia due to chronic blood loss Expected: 04/12/2025 (Approximate), Expires: 07/12/2025 [facility] Comment on above: Expected: 04/12/2025 (Approximate), Expi res: 07/12/2025 Start: 04-12-2025 End: 07-12-2025 Iron and Iron binding capacity panel - Serum or Plasma IRON AND TIBC Lab Routine Other vitamin B12 deficiency anemia Iron deficiency anemia due to chronic blood loss Expected: 04/12/2025 (Approximate), Expires: 07/12/2025 [facility] Work Phone: Comment on above: Expected: 04/12/2025 (Approximate), Expi res: 07/12/2025 Start: 03-16-2025 Influenza vaccination [facility] Start: 03-12-2025 Laparoscopic appendectomy Laparoscopic, Appendectomy (Not Applicable) [facility] Start: 03-12-2025 Verification routine [facility] Start: 03-12-2025 Admission procedure [facility] Start: 03-12-2025 Hospital admission, emergency, from emergency room, medical nature [facility] Start: 02-26-2025 End: 02-26-2025 Patient encounter procedure 02/26/2025 8:15 AM EDT Procedure Visit [facility] [address] [place] [address] John Vivas, DO [address] [place], [place] [phone] [facility] Start: 02-05-2025 End: 02-05-2025 Patient encounter procedure 02/05/2025 2:00 PM EDT Office Visit Neurology [address] [place] [address] Home sleep test Neurology Comment on above: Home sleep test Start: 01-26-2025 End: 01-26-2025 Telemedicine consultation with patient 01/26/2025 2:30 PM EDT Telemedicine [facility] Ob[facility]etrics [facility]ne[facility] - [place] [address] [place] [address] John Vivas, DO [address] [place], [place] [phone] [facility] [place] Start: 01-20-2025 End: 01-20-2025 Patient encounter procedure 01/20/2025 2:30 PM EDT Office Visit [facility] Obstetrics and Gynecology - [place] [place] [address] [facility] [place] Start: 01-13-2025 End: 01-13-2025 ambulatory 01/13/2025 3:00 PM EDT [facility] Hematology/Oncology [address] [place] [address] Hill Mendoza, MASTER AUTOMOTIVE TECHNICIAN.CAKE PUNCHER [address] [place] [address] [facility] H[facility]On[facility] Comment on above: [facility] Start: 01-13-2025 End: 04-14-2025 CBC W Auto Differential panel - Blood COMPLETE BLOOD COUNT AND DIFFERENTIAL Lab Routine Other vitamin B12 deficiency anemia Anemia, unspecified type Iron deficiency anemia due to chronic blood loss Expected: 01/13/2025 (Approximate), Expires: 04/14/2025 [facility] Comment on above: Expected: 01/13/2025 (Approximate), Expi res: 04/14/2025 Start: 01-13-2025 End: 04-14-2025 Cobalamin (Vitamin B12) [Mass/volume] in Serum or Plasma VITAMIN B12 Lab Routine Other vitamin B12 deficiency anemia Anemia, unspecified type Iron deficiency anemia due to chronic blood loss Expected: 01/13/2025 (Approximate), Expires: 04/14/2025 [facility] Comment on above: Expected: 01/13/2025 (Approximate), Expi res: 04/14/2025 Start: 01-13-2025 End: 04-14-2025 Comprehensive metabolic 2000 panel - Serum or Plasma COMPREHENSIVE METABOLIC PANEL Lab Routine Other vitamin B12 deficiency anemia Anemia, unspecified type Iron deficiency anemia due to chronic blood loss Expected: 01/13/2025 (Approximate), Expires: 04/14/2025 [facility] Comment on above: Expected: 01/13/2025 (Approximate), Expi res: 04/14/2025 Start: 01-13-2025 End: 04-14-2025 Ferritin [Mass/volume] in Serum or Plasma FERRITIN Lab Routine Other vitamin B12 deficiency anemia Anemia, unspecified type Iron deficiency anemia due to chronic blood loss Expected: 01/13/2025 (Approximate), Expires: 04/14/2025 [facility] Comment on above: Expected: 01/13/2025 (Approximate), Expi res: 04/14/2025 Start: 01-13-2025 End: 04-14-2025 Folate [Mass/volume] in Serum or Plasma FOLATE, SERUM Lab Routine Other vitamin B12 deficiency anemia Anemia, unspecified type Iron deficiency anemia due to chronic blood loss Expected: 01/13/2025 (Approximate), Expires: 04/14/2025 [facility] Comment on above: Expected: 01/13/2025 (Approximate), Expi res: 04/14/2025 Start: 01-13-2025 End: 04-14-2025 Iron and Iron binding capacity panel - Serum or Plasma IRON AND TIBC Lab Routine Other vitamin B12 deficiency anemia Anemia, unspecified type Iron deficiency anemia due to chronic blood loss Expected: 01/13/2025 (Approximate), Expires: 04/14/2025 [facility] Comment on above: Expected: 01/13/2025 (Approximate), Expi res: 04/14/2025 Start: 01-09-2025 End: 01-09-2025 ambulatory 01/09/2025 8:30 AM EDT Results Only [facility] [address] [place] [address] labs [facility] Comment on above: labs Start: 01-08-2025 End: 04-09-2025 25-hydroxyvitamin D3 [Mass/volume] in Serum or Plasma VITAMIN D 25 HYDROXY Lab Routine Vitamin D deficiency Expected: 01/08/2025, Expires: 04/09/2025 [facility] Comment on above: Expected: 01/08/2025, Expires: Start: 01-08-2025 End: 04-09-2025 Hemoglobin A1c in Blood HEMOGLOBIN A1C Lab Routine Prediabetes Expected: 01/08/2025, Expires: 04/09/2025 [facility] Comment on above: Expected: 01/08/2025, Expires: Start: 12-29-2024 End: 12-29-2024 ambulatory 12/29/2024 10:30 AM EDT [facility] Gastroenterology [place] [address] [place] [phone] Bradly Roy APRN.CAKE PUNCHER [address] [place] [address] f/u for gerd [facility]enter[facility] [place] Comment on above: f/u for gerd Start: 12-25-2024 End: 12-25-2025 US Pelvis transvaginal US pelvis transvaginal Imaging Routine Abnormal uterine bleeding (AUB) Expected: 12/25/2024, Expires: 12/25/2025 [facility] Comment on above: Expected: 12/25/2024, Expires: Start: 12-10-2024 Subsequent hospital visit by physician 12/10/2024 1:41 PM EDT Hospital Encounter [facility] Endoscopy [address] [place] [address] Eyad Cartwright MD [address] [place] [address] Renita Vincent MD [address] [place] [address] Arrived [facility] Endoscopy Comment on above: Arrived Start: 12-10-2024 End: 12-10-2024 Patient encounter procedure 12/10/2024 9:00 AM EDT Appointment Ambulatory Surgery [address] [place] [address] Daniel Hardin, [address] [place] [address] Gastroesophageal reflux disease, unspecified whether esophagitis present [K21.9] Ambulatory Surgery Comment on above: Gastroesophageal reflux disease, unspeci fied whether esophagitis present [K21.9] Start: 11-26-2024 End: 11-26-2024 Patient encounter procedure 11/26/2024 2:15 PM EDT Office Visit Gastroenterology [place] [address] [place] [phone] Bradly Roy, JOSE.CAKE PUNCHER [address] [place] [address] GERD, hernia Gastroenterology [place] Comment on above: GERD, hernia Start: 11-21-2024 End: 11-21-2024 ambulatory 11/21/2024 9:30 AM EDT Infusion Center Hematology/Oncology [address] [place] [address] 2nd RESCHEDULED FROM NO SHOW 10/24 Hematology/Oncology Comment on above: 2nd RESCHEDULED FROM NO SHOW 10/24 Start: 11-14-2024 End: 11-14-2024 ambulatory 11/14/2024 8:30 AM EDT Infusion Center Hematology/Oncology [address] [place] [address] 2nd Hematology/Oncology Comment on above: 2nd Start: 11-07-2024 End: 11-07-2024 ambulatory 11/07/2024 8:00 AM EDT Infusion Center Hematology/Oncology [address] [place] [address] 2nd Hematology/Oncology Comment on above: 2nd Start: 11-01-2024 End: 11-01-2024 ambulatory 11/01/2024 7:30 AM EDT Results Only [place] [facility] Draw Station [address] [place] [address] [place] [facility] Draw Station Start: 10-31-2024 End: 10-31-2024 ambulatory 10/31/2024 8:00 AM EDT Infusion Center Hematology/Oncology [address] [place] [address] 2nd Hematology/Oncology Comment on above: 2nd Start: 10-30-2024 End: 01-29-2025 CBC W Auto Differential panel - Blood COMPLETE BLOOD COUNT AND DIFFERENTIAL Lab Routine Iron deficiency anemia due to chronic blood loss Expected: 10/30/2024 (Approximate), Expires: 01/29/2025 [facility] Comment on above: Expected: 10/30/2024 (Approximate), Expi res: 01/29/2025 Start: 10-30-2024 End: 01-29-2025 Cobalamin (Vitamin B12) [Mass/volume] in Serum or Plasma VITAMIN B12 Lab Routine Other vitamin B12 deficiency anemia Expected: 10/30/2024 (Approximate), Expires: 01/29/2025 [facility] Work Phone: Comment on above: Expected: 10/30/2024 (Approximate), Expi res: 01/29/2025 Start: 10-30-2024 End: 01-29-2025 Ferritin [Mass/volume] in Serum or Plasma FERRITIN Lab Routine Iron deficiency anemia due to chronic blood loss Expected: 10/30/2024 (Approximate), Expires: 01/29/2025 [facility] Comment on above: Expected: 10/30/2024 (Approximate), Expi res: 01/29/2025 Start: 10-30-2024 End: 01-29-2025 Iron and Iron binding capacity panel - Serum or Plasma IRON AND TIBC Lab Routine Iron deficiency anemia due to chronic blood loss Expected: 10/30/2024 (Approximate), Expires: 01/29/2025 [facility] Comment on above: Expected: 10/30/2024 (Approximate), Expi res: 01/29/2025 Start: 10-24-2024 End: 10-24-2024 ambulatory 10/24/2024 8:00 AM [facility] Hematology/Oncology [address] [place] [address] 2nd Hematology/Oncology Comment on above: 2nd Start: 10-14-2024 End: 01-13-2025 Cobalamin (Vitamin B12) [Mass/volume] in Serum or Plasma VITAMIN B12 Lab Routine Other vitamin B12 deficiency anemia Anemia, unspecified type Expected: 10/14/2024, Expires: 01/13/2025 [facility] Work Phone: Comment on above: Expected: 10/14/2024, Expires: Start: 10-14-2024 End: 01-13-2025 Folate [Mass/volume] in Serum or Plasma FOLATE, SERUM Lab Routine Other vitamin B12 deficiency anemia Anemia, unspecified type Expected: 10/14/2024, Expires: 01/13/2025 [facility] Comment on above: Expected: 10/14/2024, Expires: Start: 09-23-2024 End: 09-23-2024 Patient encounter procedure 09/23/2024 3:05 PM EDT Office Visit Gastroenterology [place] [address] [place] [phone] Bradly Roy, MASTER AUTOMOTIVE TECHNICIAN.CAKE PUNCHER [address] [place] [address] GERD, hernia Gastroenterology [place] Comment on above: GERD, hernia Start: 08-26-2024 End: 08-26-2024 Patient encounter procedure 08/26/2024 2:20 PM EST Office Visit Family Practice [address] [facility] [address] [place], [place] [phone] John Giles, MASTER AUTOMOTIVE TECHNICIAN.CAKE PUNCHER [address] [facility] [address] [place], [place] [phone] Checkup and foot pain Family Practice Comment on above: Checkup and foot pain Start: 08-25-2024 End: 08-25-2024 ambulatory 08/25/2024 3:00 PM [facility] Infusion Center Hematology/Oncology [address] [place], [place] [phone] [facility] Hematology/Oncology Comment on above: 2nd Start: 08-22-2024 End: 08-22-2024 ambulatory Hematology/Oncology Comment on above: IRON SUCROSE#4/4(Auth.Exp.?)* 2nd Start: 08-20-2024 End: 08-20-2024 ambulatory Hematology/Oncology Comment on above: IRON SUCROSE#3/4(Auth.Exp.?)* 2nd Start: 08-15-2024 End: 08-15-2024 ambulatory 08/15/2024 9:00 AM [facility] Infusion Center Hematology/Oncology [address] [place] [address] IRON SUCROSE#2/4(Auth.Exp.?) * Hematology/Oncology Comment on above: IRON SUCROSE#2/4(Auth.Exp.?)* Start: 08-13-2024 End: 08-13-2024 ambulatory 08/13/2024 9:30 AM EST Infusion Center Hematology/Oncology [address] [place] [address] IRON SUCROSE#1/4(Auth.Exp.?) * Hematology/Oncology Comment on above: IRON SUCROSE#1/4(Auth.Exp.?)* Start: 08-02-2024 End: 08-02-2024 ambulatory 08/02/2024 7:30 AM EST Results Only [place] [facility] Draw [facility] [address] [place] [address] [place] [facility] Start: 08-01-2024 End: 10-31-2024 CBC W Auto Differential panel - Blood COMPLETE BLOOD COUNT AND DIFFERENTIAL Lab Routine Anemia, unspecified type Iron deficiency anemia due to chronic blood loss Expected: 08/01/2024, Expires: 10/31/2024 [facility] Work Phone: Comment on above: Expected: 08/01/2024, Expires: Start: 08-01-2024 End: 10-31-2024 Cobalamin (Vitamin B12) [Mass/volume] in Serum or Plasma VITAMIN B12 Lab Routine Anemia, unspecified type Iron deficiency anemia due to chronic blood loss Expected: 08/01/2024, Expires: 10/31/2024 [facility] Comment on above: Expected: 08/01/2024, Expires: Start: 08-01-2024 End: 10-31-2024 Comprehensive metabolic 2000 panel - Serum or Plasma COMPREHENSIVE METABOLIC PANEL Lab Routine Anemia, unspecified type Iron deficiency anemia due to chronic blood loss Expected: 08/01/2024, Expires: 10/31/2024 [facility] Comment on above: Expected: 08/01/2024, Expires: Start: 08-01-2024 End: 10-31-2024 COPPER BLOOD COPPER BLOOD Lab Routine Anemia, unspecified type Iron deficiency anemia due to chronic blood loss Expected: 08/01/2024, Expires: 10/31/2024 [facility] Comment on above: Expected: 08/01/2024, Expires: Start: 08-01-2024 End: 10-31-2024 Folate [Mass/volume] in Serum or Plasma FOLATE, SERUM Lab Routine Anemia, unspecified type Iron deficiency anemia due to chronic blood loss Expected: 08/01/2024, Expires: 10/31/2024 [facility] Comment on above: Expected: 08/01/2024, Expires: Start: 08-01-2024 End: 10-31-2024 Haptoglobin [Mass/volume] in Serum or Plasma HAPTOGLOBIN Lab Routine Anemia, unspecified type Iron deficiency anemia due to chronic blood loss Expected: 08/01/2024, Expires: 10/31/2024 [facility] Comment on above: Expected: 08/01/2024, Expires: Start: 08-01-2024 End: 10-31-2024 Lactate dehydrogenase [Enzymatic activity/volume] in Serum or Plasma LACTATE DEHYDROGENASE Lab Routine Anemia, unspecified type Iron deficiency anemia due to chronic blood loss Expected: 08/01/2024, Expires: 10/31/2024 [facility] Comment on above: Expected: 08/01/2024, Expires: Start: 08-01-2024 End: 10-31-2024 Pyridoxine [Mass/volume] in Serum or Plasma VITAMIN B6/PYRIDOXIN Lab Routine Anemia, unspecified type Iron deficiency anemia due to chronic blood loss Expected: 08/01/2024, Expires: 10/31/2024 [facility] Comment on above: Expected: 08/01/2024, Expires: Start: 08-01-2024 End: 10-31-2024 RETICULOCYTE COUNT RETICULOCYTE COUNT Lab Routine Anemia, unspecified type Iron deficiency anemia due to chronic blood loss Expected: 08/01/2024, Expires: 10/31/2024 [facility] Comment on above: Expected: 08/01/2024, Expires: Start: 08-01-2024 End: 10-31-2024 VITAMIN B1 (THIAMINE), WHOLE BLOOD VITAMIN B1 (THIAMINE), WHOLE BLOOD Lab Routine Anemia, unspecified type Iron deficiency anemia due to chronic blood loss Expected: 08/01/2024, Expires: 10/31/2024 [facility] Comment on above: Expected: 08/01/2024, Expires: Start: 08-01-2024 End: 08-01-2024 [facility] visit new patient 08/01/2024 1:00 PM [facility] Hematology/Oncology [address] [place] [address] New patient Hematology/Oncology Comment on above: New patient Start: 07-17-2024 End: 10-16-2024 25-hydroxyvitamin D3 [Mass/volume] in Serum or Plasma VITAMIN D 25 HYDROXY Lab Routine Vitamin D deficiency Expected: 07/17/2024, Expires: 10/16/2024 [facility] Comment on above: Expected: 07/17/2024, Expires: Start: 07-17-2024 End: 10-16-2024 CBC panel - Blood by Automated count COMPLETE BLOOD COUNT Lab Routine Anemia, unspecified type Expected: 07/17/2024, Expires: 10/16/2024 [facility] Comment on above: Expected: 07/17/2024, Expires: Start: 07-17-2024 End: 10-16-2024 Comprehensive metabolic 2000 panel - Serum or Plasma COMPREHENSIVE METABOLIC PANEL Lab Routine Epigastric pain Expected: 07/17/2024, Expires: 10/16/2024 [facility] Comment on above: Expected: 07/17/2024, Expires: Start: 07-17-2024 End: 10-16-2024 Ferritin [Mass/volume] in Serum or Plasma FERRITIN Lab Routine Anemia, unspecified type Expected: 07/17/2024, Expires: 10/16/2024 [facility] Comment on above: Expected: 07/17/2024, Expires: Start: 07-17-2024 End: 10-16-2024 Hemoglobin A1c in Blood HEMOGLOBIN A1C Lab Routine Screening for diabetes mellitus Expected: 07/17/2024, Expires: 10/16/2024 [facility] Work Phone: Comment on above: Expected: 07/17/2024, Expires: Start: 07-17-2024 End: 10-16-2024 Iron and Iron binding capacity panel - Serum or Plasma IRON AND TIBC Lab Routine Anemia, unspecified type Expected: 07/17/2024, Expires: 10/16/2024 [facility] Comment on above: Expected: 07/17/2024, Expires: Start: 07-17-2024 End: 10-16-2024 Lipid 1996 panel - Serum or Plasma LIPID PANEL BASIC Lab Routine Screening for lipid disorders Expected: 07/17/2024, Expires: 10/16/2024 [facility] Comment on above: Expected: 07/17/2024, Expires: Start: 07-17-2024 End: 10-16-2024 Thyrotropin [Units/volume] in Serum or Plasma THYROID STIMULATING HORMONE Lab Routine Low TSH level Expected: 07/17/2024, Expires: 10/16/2024 [facility] Comment on above: Expected: 07/17/2024, Expires: Start: 07-17-2024 End: 07-17-2024 Patient encounter procedure 07/17/2024 1:40 PM EST Office Visit Family Practice [address] [facility] [address] [place], [place] [phone] John Giles, MASTER AUTOMOTIVE TECHNICIAN.CAKE PUNCHER [address] [facility] [place] [address] HERNIA ISSUE, [place], CHEST PAIN, SHORTNESS OF BREATH Family [facility] Comment on above: HERNIA ISSUE, [place], CHEST PAIN, SHORTN ESS OF BREATH Start: 03-16-2024 Covid-19 Vaccine ( season) Covid-19 Vaccine () [facility] Start: 03-16-2024 Covid-19 Vaccine ( season) Covid-19 Vaccine ( season) [facility] Start: 03-16-2024 Influenza vaccination [facility] Start: 09-25-2023 End: 12-25-2023 Hematocrit [Volume Fraction] of Blood HEMATOCRIT (HCT) Lab Routine Anemia, unspecified type Expected: 09/25/2023, Expires: 12/25/2023 [facility] Work Phone: Comment on above: Expected: 09/25/2023, Expires: Start: 09-25-2023 End: 12-25-2023 Hemoglobin [Mass/volume] in Blood HEMOGLOBIN (HGB) Lab Routine Anemia, unspecified type Expected: 09/25/2023, Expires: 12/25/2023 [facility] Work Phone: Comment on above: Expected: 09/25/2023, Expires: Start: 09-25-2023 End: 12-25-2023 THYROID PEROXIDASE ANTIBODY BLOOD THYROID PEROXIDASE ANTIBODY BLOOD Lab Routine Low TSH level Expected: 09/25/2023, Expires: 12/25/2023 [facility] Work Phone: Comment on above: Expected: 09/25/2023, Expires: Start: 09-25-2023 End: 12-25-2023 THYROID STIMULATING IMMUNOGLOBULIN BLOOD THYROID STIMULATING IMMUNOGLOBULIN BLOOD Lab Routine Low TSH level Expected: 09/25/2023, Expires: 12/25/2023 [facility] Work Phone: Comment on above: Expected: 09/25/2023, Expires: Start: 09-25-2023 End: 12-25-2023 Thyrotropin [Units/volume] in Serum or Plasma TSH BLD Lab Routine Low TSH level Expected: 09/25/2023, Expires: 12/25/2023 [facility] Work Phone: Comment on above: Expected: 09/25/2023, Expires: 4 Start: 09-25-2023 End: 12-25-2023 Thyroxine (T4) free [Mass/volume] in Serum or Plasma T4 FREE/FREE THYROX Lab Routine Low TSH level Expected: 09/25/2023, Expires: 12/25/2023 [facility] Work Phone: Comment on above: Expected: 09/25/2023, Expires: Start: 09-25-2023 End: 12-25-2023 Triiodothyronine (T3) [Mass/volume] in Serum or Plasma T3 BLD Lab Routine Low TSH level Expected: 09/25/2023, Expires: 12/25/2023 [facility] Work Phone: Comment on above: Expected: 09/25/2023, Expires: 4 Start: 07-16-2023 Behavioral Health Screening Behavioral Health Screening [facility] Start: 07-16-2023 Depression Assessment Depression Assessment [facility] Start: 03-16-2023 Covid-19 Vaccine ( season) Covid-19 Vaccine () [facility] Start: 03-16-2023 Influenza vaccination [facility] Start: 01-26-2023 End: 02-09-2023 Radiologic exam chest 2 views XR CHEST 2V FRONTAL/LAT Radiology STAT SOB (shortness of breath) Expected: 01/26/2023, Expires: 02/09/2023 [facility] Work Phone: Comment on above: Expected: 01/26/2023, Expires: 3 Start: 01-12-2023 Influenza vaccination INFLUENZA (#1) [facility] Comment on above: Postponed from 03/16/2022 (Declined at t his time) Start: 01-10-2023 Adult depression screening assessment DEPRESSION SCREENING [facility] Start: 01-10-2023 COVID-19 VACCINE (#1) COVID-19 VACCINE (#1) [facility] Comment on above: Postponed from 11/29/1992 (Declined at t his time) Postponed from 06/01 (Declined at this time) Start: 07-16-2022 DEPRESSION ASSESSMENT DEPRESSION ASSESSMENT [facility] Start: 03-16-2022 Influenza vaccination [facility] Start: 11-03-2021 Adult depression screening assessment DEPRESSION SCREENING [facility] Start: 07-16-2021 DEPRESSION ASSESSMENT DEPRESSION ASSESSMENT [facility] Start: 11-29-2017 HPV TESTING HPV TESTING [facility] Start: 11-29-2017 Screening for malignant neoplasm of cervix [facility] Start: 11-29-2008 PAP TESTING PAP TESTING [facility] Start: 11-29-2008 Screening for malignant neoplasm of cervix [facility] Start: 11-29-2006 Hepatitis B Vaccine (1 of 3 - 19+ 3-dose series) Hepatitis B Vaccine (1 of 3 - 19+ 3-dose series) [facility] Start: 11-29-2006 Hepatitis B Vaccines (1 of 3 - 19+ 3-dose series) Hepatitis B Vaccines (1 of 3 - 19+ 3-dose series) [facility] Start: 11-29-2006 Pneumococcal vaccination Pneumococcal Vaccine (1 of 2 - PCV) [facility] Start: 11-29-2006 Pneumococcal Vaccine: Pediatrics (0 to 5 Years) and At-Risk Patients (6 to 49 Years) (1 of 2 - PCV) Pneumococcal Vaccine: Pediatrics (0 to 5 Years) and At-Risk Patients (6 to 49 Years) (1 of 2 - PCV) [facility] Start: 11-29-2005 Anxiety Screening Anxiety Screening [facility] Start: 11-29-2005 Depression Screening Depression Screening [facility] Start: 11-29-2005 Hepatitis C screening Hepatitis C Screening [facility] Start: 11-29-2000 Varicella vaccination Varicella Vaccines (1 of 2 - 13+ 2-dose series) [facility] Start: 11-29-1993 Pneumococcal vaccination Pneumococcal Vaccine (1 of 2 - PCV) [facility] Start: 11-29-1992 COVID-19 VACCINE (#1) COVID-19 VACCINE (#1) [facility] Start: 11-29-1988 MMR Vaccines (1 of 1 - Standard series) MMR Vaccines (1 of 1 - Standard series) [facility] Start: 06-01-1988 COVID-19 VACCINE (#1) COVID-19 VACCINE (#1) [facility] Start: 1987 HEPATITIS B (1 of 3 - 3-dose series) HEPATITIS B (1 of 3 - 3-dose series) [facility] Start: 1987 Hepatitis B Vaccine (1 of 3 - 3-dose series) Hepatitis B Vaccine (1 of 3 - 3-dose series) [facility] Start: 1987 HIV screening HIV Screening [facility] Start: 1985 Lipid panel Lipid Panel [facility] 25-hydroxyvitamin D3 [Mass/volume] in Serum or Plasma VITAMIN D 25 HYDROXY Lab Routine Fatigue, unspecified type 08/22/2023 2:59 PM EST [facility] Work Phone: Bacteria identified in Urine by Culture URINE CULTURE Microbiology Routine Urinary symptom or sign Bilateral flank pain Microscopic hematuria Ordered: 08/20/2023 [facility] Work Phone: Comment on above: Ordered: 08/20/2023 Bacteria identified in Urine by Culture URINE CULTURE Microbiology Routine Vaginal itching Ordered: 07/14/2024 [facility] Work Phone: Comment on above: Ordered: 07/14/2024 BACTERIAL VAGINOSIS NAAT BACTERI AL VAGINOSIS NAAT Lab Routine Vaginal itching Ordered: 07/14/2024 [facility] Comment on above: Ordered: 07/14/2024 EZE/TRICHOMONAS NAAT EZE /TRICHOMONAS NAAT Lab Routine Vaginal itching Ordered: 07/14/2024 [facility] Comment on above: Ordered: 07/14/2024 Comprehensive metabo lic 2000 panel - Serum or Plasma COMP METABOLIC PANEL Lab Routine Fatigue, unspecified type 08/22/2023 2:59 PM [facility] Work Phone: COVID & INFLUENZA A/ B & RSV NAAT, ROUTINE COVID & INFLUENZA A/B & RSV NAAT, ROUTINE Microbiology Routine Viral syndrome Persistent cough for 3 weeks or longer 08/20/2023 12:55 PM [facility] Work Phone: Cytology Cervical or vaginal smear or scraping study Pap Smear Pathology and Cytology Routine Cervical cancer screening Ordered: 12/25/2024 [facility] Work Phone: Comment on above: Ordered: 12/25/2024 ECG COMPLETE ECG COMPLETE ECG Routine Chest pain, unspecified type 07/17/2024 2:18 PM [facility] End: 11-26-2025 EGD DIAGNOSTIC EGD DIAGNOSTIC Endoscopy Routine Gastroesophageal reflux disease, unspecified whether esophagitis present Hiatal hernia 1 Occurrences starting 11/26/2024 until 11/26/2025 [facility] Work Phone: Comment on above: 1 Occurrences starting 11/26/2024 until 11/26/2025 End: 11-14-2023 EMG(NEURO/NI) EMG(NEURO/NI) EMG Routine Paresthesia of left arm Weakness of right hand 1 Occurrences starting 11/13/2022 until 11/14/2023 [facility] Work Phone: Comment on above: 1 Occurrences starting 11/13/2022 until 11/14/2023 End: 01-08-2026 HOME SLEEP APNEA TEST (HSAT) HOME SLEEP APNEA TEST (HSAT) Procedures Routine Fatigue, unspecified type Snoring 1 Occurrences starting 01/08/2025 until 01/08/2026 [facility] Work Phone: Comment on above: 1 Occurrences starting 01/08/2025 until 01/08/2026 Influenza virus A an d B RNA and SARS-CoV-2 (COVID-19) N gene panel - Respiratory specimen by DERECK with probe detection COVID WITH FLUA+B, ROUTINE Microbiology Routine Pharyngitis, unspecified etiology Viral upper respiratory tract infection with cough SOB (shortness of breath) 01/26/2023 3:55 PM EDT [facility] Work Phone: Patient Education [facility] Work Phone: Patient referral [facility] Work Phone: End: 12-13-2023 Radex spine cervical 4 or 5 views XR CERV OTHER 4V AP/LAT/OBL Radiology Routine Paresthesia of left arm 1 Occurrences starting 11/13/2022 until 12/13/2023 [facility] Work Phone: Comment on above: 1 Occurrences starting 11/13/2022 until 12/13/2023 SARS-CoV-2 (COVID-19 ) RNA [Presence] in Respiratory specimen by DERECK with probe detection 2019 CORONAVIRUS Microbiology Routine URI, acute Ordered: 04/05/2022 [facility] Work Phone: Comment on above: Ordered: 04/05/2022 End: 09-20-2024 SPIROMETRY - BASELINE AND POST DILATOR SPIROMETRY - BASELINE AND POST DILATOR PFT Routine Persistent cough for 3 weeks or longer 1 Occurrences starting 08/22/2023 until 09/20/2024 [facility] Work Phone: Comment on above: 1 Occurrences starting 08/22/2023 until 09/20/2024 SPIROMETRY - BASELIN E AND POST DILATOR SPIROMETRY - BASELINE AND POST DILATOR PFT Routine Persistent cough for 3 weeks or longer 08/27/2023 9:57 AM EST [facility] Work Phone: Thyrotropin [Units/volume] in Serum or Plasma TSH BLD Lab Routine Fatigue, unspecified type 08/22/2023 2:59 PM EST [facility] Work Phone: Tissue exam Tissue exam Path ology and Cytology Routine Abnormal uterine bleeding (AUB) 02/26/2025 8:47 AM EDT [facility] Work Phone: Tissue Pathology bio psy report [facility] Work Phone: Comment on above: Release Upon Ordering for 1 Occurrences starting 12/10/2024, 1 completed Urinalysis complete panel - Urine URINALYSIS, WITH MICROSCOPIC Lab Routine Microscopic hematuria 08/22/2023 3:07 PM EST [facility] Work Phone: End: 01-28-2026 XR Abdomen Supine and Upright XR ABDOMEN 2V ROUTINE SUPINE W UPRIGHT/DECUB/CTL Radiology Routine Constipation, unspecified constipation type 1 Occurrences starting 12/29/2024 until 01/28/2026 [facility] Work Phone: Comment on above: 1 Occurrences starting 12/29/2024 until 01/28/2026 End: 09-25-2025 XR Foot - bilateral AP and Lateral and oblique XR FOOT GENERAL 3V AP/LAT/OBL BILATERAL Radiology Routine Foot pain, bilateral 1 Occurrences starting 08/26/2024 until 09/25/2025 [facility] Work Phone: Comment on above: 1 Occurrences starting 08/26/2024 until 09/25/2025 [facility] Immunizations Immunization Date Immunization Notes Care Provider Jaimee sen 06-09-2019 tetanus toxoid, redu funmilayo diphtheria toxoid, and acellular pertussis vaccine, adsorbed Laney Hunter MD Work Phone: [facility] 06-02-2019 tetanus toxoid, redu funmilayo diphtheria toxoid, and acellular pertussis vaccine, adsorbed [facility] Payers Date Payer Category Payer Self-pay [id number] 2023 Unknown [employer] BLUE CARD PPO OOS [id number] 2023-Present [phone] [address] [place] [address] PPO [id number] 2022 Medicaid HMO [employer] MEDICA[employer] OD [id number] 2017 Unknown [id number] 2016 Medicaid [place] [employer] MEDICAID [id number] 2016-Present [phone] [address] [place] [address] Medicaid [id number] 2012 Medicaid [id number] Unknown [id number] Unknown [id number] Social History Date Type Detail Facility [facility] Work Phone: Start: 01-09-2022 End: 02-24-2023 Tobacco smoking status CTIS Unknown if ever smoked [facility] Start: 12-23-2018 None [facility] Start: 01-28-2019 Spouse/ Signif icant Other;With Family [facility] Start: 12-02-2020 Non-smoker [facility] Start: 1985 Sex Assigned At Female W [facility] Start: 10-01-2017 End: 12-13-2017 Tobacco smoking status NHIS Ex-smoker [facility] End: 05-16-2017 History of tobacco use Current smoker [facility] End: 05-16-2017 History of tobacco use Cigarette Smoker [facility] Start: 10-01-2017 End: 12-25-2024 Tobacco use and exposure Smokeless tobacco non-user [facility] Start: 09-05-2021 End: 01-08-2025 Alcohol intake Current non-drinker of alcohol (finding) [facility] Start: 06-09-2019 History SDOH Alcohol Frequency 1 [facility] Start: 06-09-2019 History SDOH Alcohol Std Drinks 98 [facility] Start: 06-09-2019 History SDOH Social Connections Phone 5 [facility] Start: 06-09-2019 History SDOH Social Connections Get Together 2 [facility] Start: 06-09-2019 History SDOH Social Connections Living 3 [facility] Start: 06-09-2019 History SDOH Physica l Activity DPW 0 [facility] Start: 06-09-2019 History SDOH Financial 4 [facility] Start: 06-09-2019 Education 12 [facility] Start: 10-01-2017 End: 02-27-2022 Tobacco Comment smoked for 3 months [facility] Start: 1985 Sex Assigned At Not on file [facility] Start: 10-31-2020 End: 06-01-2022 Exposure to SARS-CoV-2 (event) Not sure [facility] Start: 11-16-2022 End: 12-24-2024 History of Social function [facility] Work Phone: Start: 11-16-2022 End: 12-24-2024 Tobacco use panel [facility] Work Phone: Adult Depression Screening Assessment 0 [facility] Work Phone: Do you belong to any clubs or organizations such as shinto groups, unions, fraternal or athletic groups, or school groups? No [facility] Are you now , , , , never or living with a partner? [facility] How often to you hav e a drink containing alcohol? Never [facility] How hard is it for y ou to pay for the very basics like food, housing, medical care, and heating Not very hard [facility] Do you feel stress - tense, restless, nervous, or anxious, or unable to sleep at night because your mind is troubled all the time - these days [OSQ] Only a little [facility] (I/We) worried danni er (my/our) food would run out before (I/we) got money to buy more. Never true [facility] Start: 08-22-2023 End: 12-25-2024 Tobacco smoking status NHIS Smokes tobacco daily [facility] Work Phone: Start: 12-25-2024 End: 02-26-2025 Alcoholic beverage intake Lifetime non-drinker (finding) [facility] Are you now , , , , never or living with a partner? [facility] Do you feel stress - tense, restless, nervous, or anxious, or unable to sleep at night because your mind is troubled all the time - these days [OSQ] Very much [facility] Start: 02-13-2022 Sex Female (finding) [facility] Start: 12-02-2024 Gender identity Identifies as female gender (finding) [facility] Start: 12-02-2024 Sexual orientation Heterosexual (fin ding) [facility] Do you feel stress - tense, restless, nervous, or anxious, or unable to sleep at night because your mind is troubled all the time - these days [OSQ] To some extent [facility] Start: 03-12-2025 Tobacco smoking stat us NHIS Never smoked tobacco (finding) [facility] NEGATED: Highlighted row [facility] Functional Status Date Assessment Result Facility 01-08-2025 Total score [AUDIT-C] 0 01/09/20 25 12:39 PM EDT User, Mychart [facility] 01-08-2025 How often to you hav e a drink containing alcohol? Never 01/08/2025 12:39 PM EDT User, William Never [facility] 01-08-2025 Functional status Patient does n ot drink 01/08/2025 12:39 PM EDT User, William Patient does not drink [facility] 01-08-2025 How often do you hav e 6 or more drinks on 1 occasion? Never 01/08/2025 12:39 PM EDT User, William Never [facility] 12-25-2024 Patient Health Quest ionnaire 2 item (PHQ-2) [Reported] [facility] 10-01-2017 Are you deaf, or do you have serious difficulty hearing No 10/01/2017 8:57 PM Huong Gonzales RN No [facility] 10-01-2017 Are you blind, or do you have serious difficulty seeing, even when wearing glasses No 10/01/2017 8:57 PM Huong Gonzales RN No [facility] 10-01-2017 Do you have serious difficulty walking or climbing stairs No 10/01/2017 8:57 PM Huong Gonzales, VERONICA No [facility] 10-01-2017 Do you have difficul ty dressing or bathing No 10/01/2017 8:57 PM Huong Gonzales, VERONICA No [facility] 10-01-2017 Because of a physica l, mental, or emotional condition, do you have difficulty doing errands alone such as visiting a physician's office or shopping No 10/01/2017 8:57 PM Huong Gonzalse RN No [facility] Mental Status Date Assessment Result Facility 02-10-2022 Cognitive function Level Of Cons ciousness Awake;Alert;Appropriate;Fol lows Commands [facility] Work Phone: 01-09-2022 Cognitive function Level Of Cons ciousness Awake;Alert;Appropriate;Fol lows Commands [facility] Work Phone: 10-01-2017 Because of a physica l, mental, or emotional condition, do you have serious difficulty concentrating, remembering, or making decisions No 10/01/2017 8:57 PM EDT Huong Carolina, VERONICA No [facility] Clinical Notes 10-01-2017 to 03-12-2025 Esperanza Cannon MA - 02/26/2025 8:00 AM Tabby Vivas DO - 02/26/2025 8:00 AM Xiomara Warner - 02/09/2025 9:01 AM Lesly Carpenter - 02/04/2025 3:28 PM EDTPatient Instructions Note Date & Type Note Facility 03-12-2025 Discharge summary [facility] 03-12-2025 History and physi randy note [facility] 03-12-2025 Radiology Diagnostic study note [facility] [address] [place] [address] Abdomen/Pelvis W IV Cont ONLY MR#: [id number] Acct: [id number] Name: PATI BOND Rep #: [id number] : 1985 F 39 From: Huang Christensen MD PCP: Dr. Richard Hunter MD Status: REG ER Study:Abdomen/Pelvis W IV Cont ONLY Date of E xam: 03/12/25 Exam# [id number] Ordering Dr: Giovanni Ambriz MD PROCEDURE: ABDOMEN/PELVIS W IV CONT ONLY 03/12/2025 REASON FOR EXAM: RLQ PAIN TECHNIQUE: ABDOMEN/PELVIS W IV CONT ONLY Coronal and Sagittal reconstruction series were provided. CONTRAST: 99 cc Isovue-300 One or more dose reduction techniques were used (e.g., Automated exposure control, adjustment of the mA and/or kV according to patient size, use of iterative reconstruction technique. RADIATION DOSE SUMMARY: DLP: 1186 mGycm COMPARISON: None FINDINGS: Lung bases: Clear Liver: Unremarkable Gallbladder: Surgically absent Spleen: Unremarkable Pancreas: Unremarkable Adrenals: Unremarkable Kidneys: There is a 0.8 cm cyst at the upper pole of the left kidney. There is no renal stone or hydronephrosis. Bladder: Unremarkable Reproductive Organs: There is a 3.5 cm cyst or follicle on the right ovary. Bowel: Gas and stool is noted throughout the colon with a moderate stool load. The small-bowel loops are nondistended. Appendix: The appendix is enlarged to 1.1 cm in diameter, image 86/126, with no evidence of rupture or periappendiceal inflammation. Lymph nodes: There is no pathologic adenopathy by size criteria. Vasculature: Unremarkable Peritoneum / Retroperitoneum: There is no free air or free fluid. Bones: There is no acute bony abnormality. CT/Abdomen/Pelvis W IV Cont ONLY IMPRESSION: The appendix is enlarged to 1.1 cm in diameter, image 86/126, with no evidence of rupture or periappendiceal inflammation. There is a 0.8 cm cyst at the upper pole of the left kidney. There is a 3.5 cm cyst or follicle on the right ovary. Critical results were discussed with Dr. Sneed by Dr. Christensen at the time ofdictation. Reading Location: [id number] CC: Dr. Irena Ambriz MD; Dr. Richard Hunter MD ~ Coding Clerk: Signed [facility] 02-26-2025 History of Present illness Narrative Computer Publisher was offered to the patient for exam. Patient accepted, medical laboratory technician in room during exam Images from the original note were not included. Pati Bond 02/26/[birth year]25 39 y.o. Chief Complaint Patient presents with Procedure No LMP recorded. Primary CarePhysician: No primary care provider on file. HPI: Pati Bond is a 39 y.o. female presents for surgical consent. Pt has a longstanding hx of AUB. Bleeds through ultra tampon every hour on her cycle. Has tried multiple OCPs and Mirena IUD with minimal relief. Seeing hematology for anemia and chronic fatigue, was advised to discuss more definitive surgical intervention. Hx Cdx3, BTL and lap marilia. Has TVUS showing overall normal pelvic anatomy. OB History Para Term AB Living 4 4 3 1 0 3 SAB IAB Ectopic Multiple Live Births 0 3 # Outcome Date GA Lbr Jose L/2nd Weight Sex Type Anes PTL Lv 4 Term 06/23/19 F CS-Unspec BETY 3 10/06/17 M Vag-Spont Y FD Complications: Premature rupture of membranes 2 Term 03/17/11 39w0d 8 lb 13 oz (3.997 kg) F CS-Unspec Spinal N BETY 1 Term 01/29/06 41w0d 11 lb 1 oz (5.018 kg) M CS-Unspec Gen N BETY Medical History[1] Surgical History[2] Family History[3] Social History Socioeconomic History Marital status: Single Spouse name: Not on file Number of children: Not on file Years of education: Not on file Highest education level: Not on file Occupational History Not on file Tobacco Use Smoking status: Every Day Current packs/day: 1.00 Types: Cigarettes Smokeless tobacco: Never Vaping Use Vaping status: Never Used Substance and Sexual Activity Alcohol use: Never Drug use: Yes Types: Marijuana Comment: once a month Sexual activity: Not on file Other Topics Concern Not on file Social History Narrative Not on file Social Drivers of Health Financial Resource Strain: Low Risk (01/08/2025) Received from [facility] Overall Financial Resource Strain (CARDIA) Difficulty of Paying Living Expenses: Not hard at all Food Insecurity: No Food Insecurity (01/08/2025) Received from [facility] Hunger Vital Sign Worried About Running Out of Food in the Last Year: Never true Ran Out of Food in the Last Year: Never true Transportation Needs: No Transportation Needs (01/08/2025) Received from [facility] PRAPARE - Transportation Lack of Transportation (Medical): No Lack of Transportation (Non-Medical): No Physical Activity: Patient Declined (01/08/2025) Received from [facility] Exercise Vital Sign Days of Exercise per Week: Patient declined Minutes of Exercise per Session: Patient declined Recent Concern: Physical Activity - Inactive (12/25/2024) Exercise Vital Sign Days of Exercise per Week: 0 days Minutes of Exercise per Session: 0 min Stress: Stress Concern Present (01/08/2025) Received from [facility] [employer] - Occupational Stress Questionnaire Feeling of Stress : To some extent Social Connections: Socially Isolated (01/08/2025) Received from [facility] Social Connection and Isolation Panel [NHANES] Frequency of Communication with Friends and Family: More than three times a week Frequency of Social Gatherings with Friends and Family: Once a week Attends Restorationism Services: Never Active Member of Clubs or Organizations: No Attends Club or Organization Meetings: Never Marital Status: Intimate Partner Violence: Unknown (12/24/2024) Humiliation, Afraid, Rape, and Kick questionnaire Fear of Current or Ex-Partner: Patient declined Emotionally Abused: Patient declined Physically Abused: No Sexually Abused: No Housing Stability: Unknown (01/08/2025) Received from [facility] Housing Stability Vital Sign Unable to Pay for Housing in the Last Year: No Number of Times Moved in the Last Year: Not on file Homeless in the Last Year: Not on file MEDICATIONS: Current Medications[4] ALLERGIES: Allergies as of 02/26/2025 (No Known Allergies) Review of Systems: Review of Systems All other systems reviewed and are negative. Physical Exam: BP 104/68 Wt 238 lb (108 kg) Physical Exam Vitals and nursing note reviewed. Constitutional: General: She is not in acute distress. Appearance: Normal appearance. She is obese. She is not toxic-appearing. HENT: Head: Normocephalic and atraumatic. Eyes: Extraocular Movements: Extraocular movements intact. Pulmonary: Effort: Pulmonary effort is normal. No respiratory distress. Abdominal: Palpations: Abdomen is soft. Tenderness: There is no abdominal tenderness. There is no guarding or rebound. Genitourinary: General: Normal vulva. Vagina: Normal. Cervix: Normal. Uterus: Normal. Adnexa: Right adnexa normal and left adnexa normal. Skin: General: Skin is warm and dry. Neurological: General: No focal deficit present. Mental Status: She is alert and oriented to person, place, and time. Psychiatric: Mood and Affect: Mood normal. Behavior: Behavior normal. Thought Content: Thought content normal. No results found for this or any previous visit (from the past 6 weeks).] ASSESSMENT: 39 y.o. Diagnosis Plan 1. Abnormal uterine bleeding (AUB) Tissue exam 2. Iron deficiency anemia due to chronic blood loss PLAN: - Longstanding hx of heavy MP, has tried and failed OCPs and Mirena IUD - Now seeing hematology for chronic anemia due to amount of blood loss - TVUS performed and normal anatomy - Would like to proceed with definitive surgical management vis hyst - Pap NILM in 2024, EMB performed today to rule our hyperplasia or malignancy Surgical Consent Today we specifically discussed different routes of hysterectomy including vaginal, laparoscopic/robotic and abdominal. Pt has elected to proceed w/ RTLH, BS, Cysto. Discussed risks, benefits and alternatives to hysterectomy and major surgery. Reviewed hysterectomy indications and reviewed the steps of the procedure. We discussed expectations for no menstrual cycles in the future but cannot guarantee pain will improve. Explained removal of the cervix and future cervical cancer screening recommendations. Also discussed chance of undetected cancer or precancer at the time of surgery. We also discussed vaginal cuff cellulitis and vaginal cuff dehiscence following hysterectomy. The patient was allowed to freely ask questions, expressed a good understanding of all of the above risks, understood and declined alternatives to surgical management and wishes to proceed with the procedure. We discussed the risks of surgery including, but not limited to: [x] Bleeding, infection, major vascular injury, transfusion, additional surgery related to the complication. [x] Need for conversion to an open procedure. [x] Injury to the small as well as large bowel. If either of these injuries occur they would be repaired by a general surgeon at the time of the initial surgery. However, there is a remote risk of needing a reversible colostomy if repair could not be performed [x] Risk of injury to the ureter in the form of transection, angulation and thermal dessication. If either injury is identified at the time of the initial surgery a urologist would be consulted for appropriate repair. However, most of these injuries are not identified until the post-operative course. If this occurred, a temporary nephrostomy tube will be placed until the ureter could be repaired which may not be possible until up to 12 weeks after the initial surgery [x] Risk of injury to the bladder. If this occurred, the injury would be repaired at the time of the initial surgery and that she would need to wear a catheter for approximately 3-10 days following surgery [x] Risk of post-operative complications such as bowel perforation from thermal injury, vesicovaginal and rectovaginal fistula, vaginal cuff cellulitis, vaginal cuff dehiscence, and peripheral as well as motor neuropathy following hysterectomy [x] Anesthetic complication, cardiovascular risks including VTE, neurologic compromise/neuropathy [x] Unexpected findings which may require different or additional procedures [x] Failure of the procedure to achieve the desired result [x] For endoscopic procedures, the possibility of conversion to open surgery, need for re-operation or rehospitalization [x] The remote possibility of [x] Pain control and risks of narcotic medications [x] Recovery period and post-op expectations All questions asked and answered. Patient is able to correctly repeat the pertinent facts and she indicates understanding of these issues and agrees with the plan. Plan: RTLH, BS, Cysto Follow up for PAT. No orders of the defined types were placed in this encounter. [1] Past Medical History: Diagnosis Date Acute anemia [2] Past Surgical History: Procedure Laterality Date CHOLECYSTECTOMY DELIVERY (HISTORICAL) X3 DENTAL SURGERY RECTAL SURGERY 2nd surgery RECTAL VAGINAL FISTULECTOMY TONSILLECTOMY [3] No family history on file. [4] Current Outpatient Medications Medication Sig Dispense Refill ergocalciferol (Vitamin D-2) 1.25 MG (19196 UT) capsule Take 1.25 mg by mouth 1 (one) time per week. megestrol (Megace) 40 MG tablet Take 1 tablet (40 mg total) by mouth daily. 90 tablet 0 No current facility-administered medications for this visit. documented in this encounter [facility] 02-09-2025 Note HNO ID: [id number] Author: ?, ?, ? Service: ? Author Type: ? Type: Progress Notes Filed: 02/09/2025 09:04 Note Text: Sleep Study Check-In Documentation Date: February 09, 2025 Name: Pati Bond Comments: HST was returned in working order with all sleep questionnaires Xiomara Leavitt [facility] 02-09-2025 History of Present illness Narrative Sleep Study Check-In Documentation Date: February 09, 2025 Name: Pati Bond Comments: HST was returned in working order with all sleep questionnaires Xiomara Leavitt Nomad # [id number] , date shipped out 02-04-25 FED EX ONLY Tracking mailout:[id number] Tracking return: [phone] [id number] January 26, 2025 Standing PSG Orders signed in the last 90 days None Future PSG Orders signed in the last 90 days Ordered Auth. provider HOME SLEEP APNEA TEST (HSAT) [[id number]] 01/08/25 John Giles APRN.[facility] diagnoses: Fatigue, unspecified type [R53.83], Snoring [R06.83] Q: Indications: A: Obstructive sleep apnea Q: STOP-BANG conditions - Select All That Apply: A: BMI > 35 kg/m2 A2: TIREDNESS, fatigue or sleepiness during the day A3: SNORING that is loud or disruptive Q: Current use of supplemental oxygen during sleep period?: A: No All Prior Sleep Studies (past 365 days) 01/08/2025 14:35 Sleep Studies HOME SLEEP APNEA TEST (HSAT) HOME SLEEP APNEA TEST (HSAT) Order Status: Ordered, Future Expires: 01/08/26 BMI Readings from Last 2 Encounters: 12/10/24 : 42.77 kg/m 12/10/24 : 42.85 kg/m PAST MEDICAL HISTORY Diagnosis Date Anemia GERD (gastroesophageal reflux disease) Hiatal hernia Morbid obesity (HCC) The medical record was reviewed to determine if the proposed sleep study conforms to the AASM Practice Parameters for the Indications for Polysomnography and Related Procedures, or if the sleep study is indicated for other reasons. Indications for study: DEIRDRE suspected without comorbid medical or sleep disorders Sleep study to be performed: Home Sleep Apnea Test (HSAT) Special instructions: None-follow laboratory protocol [facility] Staff Note: I have read the above protocol, edited as needed, and agree to the plan. Daniel Starkey PA-C 11:57 AM, 01/26/2025 January 26, 2025 An order has been received for Home Sleep Apnea Test (HSAT) from John Salmon a B. [facility] Staff. Visit prep complete. Comments :No The sleep study is scheduled for 02/05/25. Insurance: Payor: BLUE MEDICAID / Plan: BLUE [facility] MEDICAID / Product Type: Medicaid / Payer/Plan Subscr Sex Relation Sub. Ins. ID Effective Group Num 1. BLUE MEDIC* PATI BOND 1985 Female Self [id number] [birth year] [address] Torsten Rosado documented in this encounter [facility] 02-04-2025 Note HNO ID: [id number] Author: ?, ?, ? Service: ? Author Type: ? Type: Progress Notes Filed: 02/09/2025 09:04 Note Text: Nomad # [id number] , date shipped out 02-04-25 FED EX ONLY Tracking mailout:[id number] Tracking return: [phone] [facility] 01-26-2025 History of Present illness Narrative Patient was identified and seen today via Telehealth by agreement and consent. I used the following Telehealth technology: Audio and video capabilities. Patient location: Patient Location: Home. This patient encounter is appropriate and reasonable under the circumstances: schedule . The patient has been advised of the potential risks and limitations of this mode of treatment (including but not limited to the absence of in-person examination) and has agreed to be treated in a remote fashion in spite of them. Any and all of the patient's/patient's family's questions on this issue have been answered and I have made no promises or guarantees to the patient. The patient has also been advised to contact this office for worsening conditions or problems, and seek emergency medical treatment and/or call 911 if the patient deems either necessary. The patient stated that they are currently in the state [facility]. If the patient is a minor, permission has been obtained by the parent or guardian for the patient to receive medical care at this visit. HPI: Pt being seen today for US follow up regarding AUB. Has had several years of very heavy MP, bleeding through ultra tampon every hour. Seeing hematology and advised to have MP checked as possible cause for anemia. Previosuly had Mirena, helped slow bleeding. Hx Cdx3 and BTL. Reviewed TVUS results showing overall normal pelvic anatomy. At this point patient is tired of medications and would like definitive surgical management. REVIEW OF SYSTEMS: Gen: denies weight loss, fatigue, fevers/chills : see HPI PHYSICAL EXAM: There were no vitals filed for this visit. Physical Exam Vitals and nursing note reviewed. Constitutional: General: She is not in acute distress. Appearance: Normal appearance. She is not toxic-appearing. HENT: Head: Normocephalic and atraumatic. Eyes: Extraocular Movements: Extraocular movements intact. Pulmonary: Effort: Pulmonary effort is normal. No respiratory distress. Neurological: General: No focal deficit present. Mental Status: She is alert and oriented to person, place, and time. Psychiatric: Mood and Affect: Mood normal. Diagnoses and all orders for this visit: Abnormal uterine bleeding (AUB) (Primary) - megestrol (Megace) 40 MG tablet; Take 1 tablet (40 mg total) by mouth daily. PLAN: - Having persistent heavy MP, previously failed meds and IUD - TVUS reviewed, normal pelvic anatomy - Follows with hematology for chronic anemia due to MP - Desires definitive surgical management via Hyst - Will Schedule for EMB and hyst consents - Megace rx sent for interim to bridge to surgery documented in this encounter [facility] 01-26-2025 Note HNO ID: [id number] Author: DANIEL STARKEY PA-C Service: ? Author Type: Physician Cold Working Inspector Type: Progress Notes Filed: 02/09/2025 09:04 Note Text: January 26, 2025 Standing PSG Orders signed in the last 90 days None Future PSG Orders signed in the last 90 days Ordered Auth. provider HOME SLEEP APNEA TEST (HSAT) [[id number]] 01/08/25 John Giles APRN.[facility] diagnoses: Fatigue, unspecified type [R53.83], Snoring [R06.83] Q: Indications: A: Obstructive sleep apnea Q: STOP-BANG conditions - Select All That Apply: A: BMI > 35 kg/m2 A2: TIREDNESS, fatigue or sleepiness during the day A3: SNORING that is loud or disruptive Q: Current use of supplemental oxygen during sleep period?: A: No All Prior Sleep Studies (past 365 days) 01/08/2025 14:35 Sleep Studies HOME SLEEP APNEA TEST (HSAT) HOME SLEEP APNEA TEST (HSAT) Order Status: Ordered, Future Expires: 01/08/26 BMI Readings from Last 2 Encounters: 12/10/24 : 42.77 kg/m? 12/10/24 : 42.85 kg/m? PAST MEDICAL HISTORY Diagnosis Date Anemia GERD (gastroesophageal reflux disease) Hiatal hernia Morbid obesity (HCC) The medical record was reviewed to determine if the proposed sleep study conforms to the AASM Practice Parameters for the Indications for Polysomnography and Related Procedures, or if the sleep study is indicated for other reasons. Indications for study: DEIRDRE suspected without comorbid medical or sleep disorders Sleep study to be performed: Home Sleep Apnea Test (HSAT) Special instructions: None-follow laboratory protocol [facility] Staff Note: I have read the above protocol, edited as needed, and agree to the plan. Daniel Starkey PA-C 11:57 AM, 01/26/2025 [facility] 01-26-2025 Note HNO ID: [id number] Author: ?, ?, ? Service: ? Author Type: ? Type: Progress Notes Filed: 02/09/2025 09:04 Note Text: January 26, 2025 An order has been received for Home Sleep Apnea Test (HSAT) from John Salmon a B. [facility] Staff. Visit prep complete. Comments :No The sleep study is scheduled for 02/05/25. Insurance: Payor: [place] [employer]ICA[employer] / Plan: BLUE [facility] MEDICAID / Product Type: Medicaid / Payer/Plan Subscr Sex Relation Sub. Ins. ID Effective Group Num 1. BLUE MEDIC* PATI BOND 1985 Female Self [id number] [birth year] [address]Fan Rosado [facility] 01-13-2025 Note HNO ID: [id number] Author: HILL MENDOZA APRN.ARPIT Service: ? Author Type: Nurse Practitioner Type: Progress Notes Filed: 01/13/2025 15:30 Note Text: Distance Health Visit [facility] ESTABLISHED PATIENT NOTE Hematologic Oncology and Blood Disorders This visit is a Virtual MyChart video encounter which required patient-provider interaction for the medical decision making as documented below. Persons Present: patient Pati Bond has consented to this distance health encounter. I have communicated my name and active licensure. The patient's identity and physical location were verified at the time of this visit. Either the patient or their legal medical detail representative has been informed of the risks and benefits of -- and alternatives to -- treatment through a remote evaluation and consents to proceed with the evaluation remotely. PATIENT NAME: Pati Bond DATE OF SERVICE: January 13, 2025 REASON FOR VISIT: Anemia (Elements copied from my note dated 10/14/24, have been reviewed and updated where appropriate, and all reflect current assessment and medical decision making during today's encounter, 01/13/2025.) HISTORY OF THE PRESENT ILLNESS: Pati Bond is a 39 year old female who presents for follow up of anemia. She reports that she used to have heavy menstrual cycles, but this has improved. Still changing every hour to two hours with ultra tampons. She reports that she has dealt with anemia for many years even previously requiring iron infusions when her 13 year old was about 1. She reports that she is not great with taking her vitamins, but she has previously taken oral iron replacement. She feels extremely run-down and has been dealing with a lot lately so she hasn't been able to be on top of this. She has not had recent GI or gynecologic evaluation. Her recent lab work show worsening microcytic anemia with a hemoglobin of 9.1 from 9.6. She endorses worsening exercise tolerance and severe fatigue. Interval History 10/14/24: Ms. Mohamud presents today for follow up. She reports that she continues to heavy menses. She completed her infusions and then resumed taking her B12 and iron pills. She reports that her symptoms of anemia have improved significantly and her lightheadedness has improved only about 1 time every other week. She has not had time to follow up with gynecology regarding her menstrual cycles or GI. She completed her recent labs which showed continued iron deficiency, but resolution of her anemia with a HGB up to 12.0. Interval History 01/13/25: She presents today for follow up of anemia. She underwent 4 more iron infusions. She notes continued fatigue and no real improvement in her symptoms since she was last seen. She has undergone an EGD and gynecology evaluation. She was found to have gastritis on her recent EGD. She is also scheduled with gynecology for a transvaginal ultrasound for further evaluation of her heavy menstrual periods. She is going to likely have an IUD placed as well. This has helped in the past. She has not been taking any B12 or iron supplementation. Her iron levels show significant improvement and her HGB has normalized. PAST MEDICAL HISTORY: PAST MEDICAL HISTORY Diagnosis Date Anemia GERD (gastroesophageal reflux disease) Hiatal hernia Morbid obesity (HCC) PAST SURGICAL HISTORY: PAST SURGICAL HISTORY Procedure Laterality Date 48 HOUR PH STUDY 06/11/2013 mild acid reflux disease ANESTH, SECTION 2005, 2010twice CHOLECYSTECTOMY COLONOSCOPY 11/25/2012 normal EGD 10/08/2012 Schatzki's ringt, hiatal hernia, 2 small benign gastric polyps EGD W/O [facility] SPEC VARICIES INJ 12/10/2024 EMS PROCEDURE 06/11/2013 low LES pressures with normal relaxation response to a wet swallow with normal esophageal body motility HIATAL HERNIA REPAIR HX ORAL SURGERY PROCEDURE REMOVAL OF ANAL FISSURE 04/07/2022 CURRENT MEDICATIONS: cholecalciferol, Vitamin D3, (VITAMIN D3) 1,250 mcg (50,000 unit) cap capsule Take 1 capsule by mouth one time a week. pantoprazole DR (PROTONIX) 40 mg tablet Take 1 tablet by mouth two times a day before meals. naproxen (NAPROSYN) 500 mg tablet Take 500 mg by mouth two times a day with meals. ALLERGIES: ALLERGIES No Known Allergies FAMILY HISTORY: FAMILY HISTORY Family history unknown: Yes SOCIAL HISTORY: Social History Tobacco Use Smoking status: Every Day Current packs/day: 0.00 Types: Cigarettes Last attempt to quit: 05/2017 Years since quittin.6 Smokeless tobacco: Never Vaping Use Vaping status: Never Used Substance Use Topics Alcohol use: No Drug use: No REVIEW OF SYSTEMS Ten systems reviewed and negative except for those recorded in the HPI. VIDEO PHYSICAL EXAMINATION: (if done, performed via video enabled technology) GENERAL: alert and appropriate, in no distress, well-hydrated, (more content not included)... [facility] 01-13-2025 History of Present illness Narrative Distance Health Visit [facility] ESTABLISHED PATIENT NOTE Hematologic Oncology and Blood Disorders This visit is a Virtual MyChart video encounter which required patient-provider interaction for the medical decision making as documented below. Persons Present: patient Pati Bond has consented to this distance health encounter. I have communicated my name and active licensure. The patient's identity and physical location were verified at the time of this visit. Either the patient or their legal medical detail representative has been informed of the risks and benefits of -- and alternatives to -- treatment through a remote evaluation and consents to proceed with the evaluation remotely. PATIENT NAME: Pati Bond DATE OF SERVICE: January 13, 2025 REASON FOR VISIT: Anemia (Elements copied from my note dated 10/14/24, have been reviewed and updated where appropriate, and all reflect current assessment and medical decision making during today's encounter, 01/13/2025.) HISTORY OF THE PRESENT ILLNESS: Pati Bond is a 39 year old female who presents for follow up of anemia. She reports that she used to have heavy menstrual cycles, but this has improved. Still changing every hour to two hours with ultra tampons. She reports that she has dealt with anemia for many years even previously requiring iron infusions when her 15 year old was about 1. She reports that she is not great with taking her vitamins, but she has previously taken oral iron replacement. She feels extremely run-down and has been dealing with a lot lately so she hasn't been able to be on top of this. She has not had recent GI or gynecologic evaluation. Her recent lab work show worsening microcytic anemia with a hemoglobin of 9.1 from 9.6. She endorses worsening exercise tolerance and severe fatigue. Interval History 10/14/24: Ms. Mohamud presents today for follow up. She reports that she continues to heavy menses. She completed her infusions and then resumed taking her B12 and iron pills. She reports that her symptoms of anemia have improved significantly and her lightheadedness has improved only about 1 time every other week. She has not had time to follow up with gynecology regarding her menstrual cycles or GI. She completed her recent labs which showed continued iron deficiency, but resolution of her anemia with a HGB up to 12.0. Interval History 01/13/25: She presents today for follow up of anemia. She underwent 4 more iron infusions. She notes continued fatigue and no real improvement in her symptoms since she was last seen. She has undergone an EGD and gynecology evaluation. She was found to have gastritis on her recent EGD. She is also scheduled with gynecology for a transvaginal ultrasound for further evaluation of her heavy menstrual periods. She is going to likely have an IUD placed as well. This has helped in the past. She has not been taking any B12 or iron supplementation. Her iron levels show significant improvement and her HGB has normalized. PAST MEDICAL HISTORY: PAST MEDICAL HISTORY Diagnosis Date Anemia GERD (gastroesophageal reflux disease) Hiatal hernia Morbid obesity (HCC) PAST SURGICAL HISTORY: PAST SURGICAL HISTORY Procedure Laterality Date 48 HOUR PH STUDY 06/11/2013 mild acid reflux disease ANESTH, SECTION 2005, 2010twice CHOLECYSTECTOMY COLONOSCOPY 11/25/2012 normal EGD 10/08/2012 Schatzki's ringt, hiatal hernia, 2 small benign gastric polyps EGD W/O [facility] SPEC VARICIES INJ 12/10/2024 EMS PROCEDURE 06/11/2013 low LES pressures with normal relaxation response to a wet swallow with normal esophageal body motility HIATAL HERNIA REPAIR HX ORAL SURGERY PROCEDURE REMOVAL OF ANAL FISSURE 04/07/2022 CURRENT MEDICATIONS: cholecalciferol, Vitamin D3, (VITAMIN D3) 1,250 mcg (50,000 unit) cap capsule Take 1 capsule by mouth one time a week. pantoprazole DR (PROTONIX) 40 mg tablet Take 1 tablet by mouth two times a day before meals. naproxen (NAPROSYN) 500 mg tablet Take 500 mg by mouth two times a day with meals. ALLERGIES: ALLERGIES No Known Allergies FAMILY HISTORY: FAMILY HISTORY Family history unknown: Yes SOCIAL HISTORY: Social History Tobacco Use Smoking status: Every Day Current packs/day: 0.00 Types: Cigarettes Last attempt to quit: 05/2017 Years since quittin.6 Smokeless tobacco: Never Vaping Use Vaping status: Never Used Substance Use Topics Alcohol use: No Drug use: No REVIEW OF SYSTEMS Ten systems reviewed and negative except for those recorded in the HPI. VIDEO PHYSICAL EXAMINATION: (if done, performed via video enabled technology) GENERAL: alert and appropriate, in no distress, well-hydrated, well nourished, and happy, smiling, interactive Laboratory: Latest Ref Rn 08/22/2023 07/28/2024 08/02/2024 10/11/2024 12/10/2024 01/09/2025 WBC 3.70 - 11.00 k/uL 3.94 6.16 4.63 5.55 5.80 RBC 3.90 - 5.20 m/uL 4.53 4.29 4.54 4.58 4.61 Hemoglobin 11.5 - 15.5 g/dL 10.3 (L) 9.1 (L) 9.8 (L) 12.0 13.9 Hematocrit 36.0 - 46.0 % 34.2 (L) 31.8 (L) 34.0 (L) 38.3 41.3 MCV 80.0 - 100.0 fL 75.5 (L) 74.1 (L) 74.9 (L) 83.6 89.6 MCH 26.0 - 34.0 pg 22.7 (L) 21.2 (L) 21.6 (L) 26.2 30.2 MCHC 30.5 - 36.0 g/dL 30.1 (L) 28.6 (L) 28.8 (L) 31.3 33.7 RDW-CV 11.5 - 15.0 % 17.5 (H) 18.5 (H) 18.8 (H) 20.8 (H) 15.4 (H) Platelet Count 150 - 400 k/uL 274 293 296 246 236 MPV 9.0 - 12.7 fL 11.2 10.7 10.7 10.7 11.2 Neut% % 57.1 57.8 59.8 Abs Neut (ANC) 1.45 - 7.50 k/uL 2.64 3.20 3.47 Lymph% % 32.6 30.6 31.4 Abs Lymph 1.00 - 4.00 k/uL 1.51 1.70 1.82 Sanders% % 8.0 8.6 6.7 Abs Sanders <0.87 k/uL 0.37 0.48 0.39 Eosin% % 1.7 2.3 1.2 Abs Eosin <0.46 k/uL 0.08 0.13 0.07 Baso% % 0.4 0.5 0.7 Abs Baso <0.11 k/uL <0.03 0.03 0.04 Immature Gran % % 0.2 0.2 0.2 IMMATURE GRANS (ABS) <0.10 k/uL <0.03 <0.03 <0.03 NRBC /100 WBC 0.0 0.0 0.0 Absolute nRBC <0.01 k/uL <0.01 <0.01 <0.01 <0.01 <0.01 DTYPE Auto Auto Auto Protein, Total 6.3 - 8.0 g/dL 7.2 6.7 7.2 6.8 Albumin 3.9 - 4.9 g/dL 4.5 4.4 4.4 4.4 Calcium 8.5 - 10.2 mg/dL 8.9 9.5 9.2 9.2 Bilirubin, Total 0.2 - 1.3 mg/dL <0.2 (L) 0.2 0.2 0.4 Alkaline Phosphatase 34 - 123 U/L 73 81 80 81 AST 13 - 35 U/L 20 18 17 15 ALT 7 - 38 U/L 13 16 13 13 Glucose 74 - 99 mg/dL 102 (H) 112 (H) 85 83 BUN 7 - 21 mg/dL 12 12 9 7 Creatinine 0.58 - 0.96 mg/dL 0.76 0.97 (H) 0.70 0.69 Sodium 136 - 144 mmol/L 138 141 139 139 Potassium 3.7 - 5.1 mmol/L 4.2 4.7 4.5 4.4 Chloride 98 - 107 mmol/L 105 104 105 104 CO2 22 - 30 mmol/L 20 (L) 24 22 21 (L) Anion Gap 8 - 15 mmol/L 13 13 12 14 eGFR >=60 mL/min/1.73m 105 78 115 115 Case Report Surgical Pathology Report Case: [id number] FINAL DIAGNOSIS A. Duodenum, biopsy: Diagnosis Comment B. No Helicobacter pylori organisms are identified. Gross description A. Small Bowel, Duodenum, Biopsy Performing Lab Diagnostic interpretation performed at: [facility], [address] [place], [place] [address]IA# [id number] Disclaimer Laboratory Developed Test (LDT) Disclaimer: Iron 41 - 186 ug/dL 13 (L) 27 (L) 28 (L) 61 TIBC 232 - 386 ug/dL 368 358 320 308 Transferrin Saturation 15.0 - 57.0 % 3.5 (L) 7.5 (L) 8.8 (L) 19.8 Retic % 0.4 - 2.0 % 2.1 (H) Abs Retic 0.018 - 0.100 M/uL 0.097 TSH 0.270 - 4.200 mIU/L 0.236 (L) 0.688 T3 79 - 165 ng/dL 91 Free T4 0.9 - 1.7 ng/dL 1.0 Ferritin 14.7 - 205.1 ng/mL 13.6 (L) 6.3 (L) 13.8 (L) 20.6 Vitamin B12 232 - 1,245 pg/mL 392 356 Vitamin B6, Plasma 20.0 - 125.0 nmol/L 35.8 Vitamin B1 (TDP), Whole Blood 84.3 - 213.3 nmol/L 159.2 Folate >4.7 ng/mL 10.0 14.7 Copper 80 - 155 ug/dL 119 LD 135 - 214 U/L 166 Haptoglobin 31 - 238 mg/dL 119 Assessment and Plan: 1. Iron deficiency anemia due to chronic blood loss - ICD9: 280.0, ICD10: D50.0 (primary diagnosis) - Recommend liquid oral iron replacement - Will recheck labs in 3 months - Continuing to feel fatigued, but working with other subspecialties to look into other contributing factors - Working with labour market economist for bleeding evaluation - IRON AND TIBC - FERRITIN - COMPLETE BLOOD COUNT AND DIFFERENTIAL - COMPREHENSIVE METABOLIC PANEL - VITAMIN B12 - FOLATE, SERUM 2. Other vitamin B12 deficiency anemia - ICD9: 281.1, ICD10: D51.8 - Start B12 1000 mcg daily - Gastritis likely causing malabsorption - CYANOCOBALAMIN (VIT B-12) 1,000 MCG TABLET - IRON AND TIBC - FERRITIN - COMPLETE BLOOD COUNT AND DIFFERENTIAL - COMPREHENSIVE METABOLIC PANEL - VITAMIN B12 - FOLATE, SERUM The patient's questions were answered to satisfaction. Total time of this visit, including time spent [id number] with the patient and/or via video/audio, and also in preparing for today's visit for medical decision making, documentation, and discussion with providers involved with the care of the patient was 30 minutes. Greater than 50% of total time was spent in counseling and/or coordination of care. Hill Mendoza APRN.CNP [facility] Hematology Oncology & Blood Disorders 01/13/2025 documented in this encounter [facility] 01-08-2025 Note HNO ID: [id number] Author: JOHN GILES APRN.CNP Service: ? Author Type: Nurse Practitioner Type: Progress Notes Filed: 01/08/2025 14:47 Note Text: VIRTUAL VISIT PROGRESS NOTE This is a virtual visit using [employer] Video Visit. It required patient-provider interaction for the medical decision making as documented below. I have communicated my name and active licensure. The patient's identity and physical location were verified at the time of this visit. Either the patient or their legal medical detail representative has been informed of the risks and benefits of -- and alternatives to -- treatment through a remote evaluation and consents to proceed with the evaluation remotely. Fanny Mohamud is a 39-year-old female with a history of anemia, GERD, and vitamin D deficiency, presenting for evaluation of weight gain, fatigue, and dyspnea. Weight Gain: - Fanny has gained approximately 25 lbs over the past year, current weight is 263 lbs. - Previously maintained a weight of 235-238 lbs. - Denies significant changes in diet or activity level. - Recently stopped consuming [employer], increased water intake, and reduced soda consumption. - Has a treadmill and tries to use it when possible. - Smokes approximately 1 pack of cigarettes per day. Fatigue: - Persistent fatigue despite recent iron infusions. - Reports poor sleep quality, with frequent awakenings. - Has been told she snores heavily; denies known apneic episodes. - Describes insomnia related to anxiety and trauma from past relationships. - Reports feeling shaky at times. Dyspnea: - Reports worsening dyspnea, particularly when ascending stairs. Anemia: - Completed 8 iron infusions; last infusion was recent. - Tangled Yarn Spool Straightener recommended additional infusion to maintain levels. - Scheduled for labs tomorrow morning at 0830. GERD: - Recently switched to Protonix 40 mg BID; taking for about a week with no noticeable improvement. - Discontinued Pepcid at bedtime as per GI recommendation. Vitamin D Deficiency: - Taking high-dose vitamin D supplements. - Last vitamin D level was super low. STOP BANG Questionnaire 1. Snoring Do you snore loudly (louder than talking or loud enough to be heard through closed doors)? YES 2. Tired Do you often feel tired, fatigued, or sleepy during daytime? YES 3. Observed Has anyone observed you stop breathing during your sleep? NO 4. Blood Pressure Do you have or are you being treated for high blood pressure? NO 5. BMI BMI more than 35 kg/m2? YES 6. Age Age over 50 yr old? NO 7. Neck circumference Neck circumference greater than 40 cm? NO 8. Gender Gender male? NO * Neck circumference is measured by staff High risk of DEIRDRE: answering yes to three or more items Low risk of DEIRDRE: answering yes to less than three items HISTORY REVIEWED (electronic chart updated): PAST MEDICAL HISTORY Diagnosis Date Anemia GERD (gastroesophageal reflux disease) Hiatal hernia Morbid obesity (HCC) PAST SURGICAL HISTORY Procedure Laterality Date 48 HOUR PH STUDY 06/11/2013 mild acid reflux disease ANESTH, SECTION 2005, 2010twice CHOLECYSTECTOMY COLONOSCOPY 11/25/2012 normal EGD 10/08/2012 Schatzki's ringt, hiatal hernia, 2 small benign gastric polyps EGD W/O [facility] SPEC VARICIES INJ 12/10/2024 EMS PROCEDURE 06/11/2013 low LES pressures with normal relaxation response to a wet swallow with normal esophageal body motility HIATAL HERNIA REPAIR HX ORAL SURGERY PROCEDURE REMOVAL OF ANAL FISSURE 04/07/2022 FAMILY HISTORY Family history unknown: Yes Social History Tobacco Use Smoking status: Every Day Current packs/day: 0.00 Types: Cigarettes Last attempt to quit: 05/2017 Years since quittin.6 Smokeless tobacco: Never Vaping Use Vaping status: Never Used Substance Use Topics Alcohol use: No Drug use: No Current Outpatient Medications on File Prior to Visit Medication Sig pantoprazole DR (PROTONIX) 40 mg tablet Take 1 tablet by mouth two times a day before meals. naproxen (NAPROSYN) 500 mg tablet Take 500 mg by mouth two times a day with meals. No current facility-administered medications on file prior to visit. ALLERGIES No Known Allergies REVIEW OF SYSTEMS: As above PHYSICAL EXAMINATION: VIDEO EXAM: (if completed, performed via video enabled technology) GENERAL: alert and appropriate, in no distress, well-hydrated, well nourished, and happy, smiling, interactive 1. Morbid obesity with BMI of 40.0-44.9, adult ([facility]) (E66.01) - Current weight 263 lbs, BMI within the range of 40.0-44.9. - Discussed potential contributing factors including decreased activity due to fatigue and dietary habits. - Reviewed options for weight management medications; noted that Medicaid may not cover injectable GLP-1 agonists unless criteria such as diabetes or heart failure are met. - Discussed alternative medicatio (more content not included)... [facility] 01-08-2025 History of Present illness Narrative VIRTUAL VISIT PROGRESS NOTE This is a virtual visit using [employer] Video Visit. It required patient-provider interaction for the medical decision making as documented below. I have communicated my name and active licensure. The patient's identity and physical location were verified at the time of this visit. Either the patient or their legal medical detail representative has been informed of the risks and benefits of -- and alternatives to -- treatment through a remote evaluation and consents to proceed with the evaluation remotely. Fanny Mohamud is a 39-year-old female with a history of anemia, GERD, and vitamin D deficiency, presenting for evaluation of weight gain, fatigue, and dyspnea. Weight Gain: - Fanny has gained approximately 25 lbs over the past year, current weight is 263 lbs. - Previously maintained a weight of 235-238 lbs. - Denies significant changes in diet or activity level. - Recently stopped consuming [employer], increased water intake, and reduced soda consumption. - Has a treadmill and tries to use it when possible. - Smokes approximately 1 pack of cigarettes per day. Fatigue: - Persistent fatigue despite recent iron infusions. - Reports poor sleep quality, with frequent awakenings. - Has been told she snores heavily; denies known apneic episodes. - Describes insomnia related to anxiety and trauma from past relationships. - Reports feeling shaky at times. Dyspnea: - Reports worsening dyspnea, particularly when ascending stairs. Anemia: - Completed 8 iron infusions; last infusion was recent. - Tangled Yarn Spool Straightener recommended additional infusion to maintain levels. - Scheduled for labs tomorrow morning at 0830. GERD: - Recently switched to Protonix 40 mg BID; taking for about a week with no noticeable improvement. - Discontinued Pepcid at bedtime as per GI recommendation. Vitamin D Deficiency: - Taking high-dose vitamin D supplements. - Last vitamin D level was super low. STOP BANG Questionnaire 1. Snoring Do you snore loudly (louder than talking or loud enough to be heard through closed doors)? YES 2. Tired Do you often feel tired, fatigued, or sleepy during daytime? YES 3. Observed Has anyone observed you stop breathing during your sleep? NO 4. Blood Pressure Do you have or are you being treated for high blood pressure? NO 5. BMI BMI more than 35 kg/m2? YES 6. Age Age over 50 yr old? NO 7. Neck circumference Neck circumference greater than 40 cm? NO 8. Gender Gender male? NO * Neck circumference is measured by staff High risk of DEIRDRE: answering yes to three or more items Low risk of DEIRDRE: answering yes to less than three items HISTORY REVIEWED (electronic chart updated): PAST MEDICAL HISTORY Diagnosis Date Anemia GERD (gastroesophageal reflux disease) Hiatal hernia Morbid obesity (HCC) PAST SURGICAL HISTORY Procedure Laterality Date 48 HOUR PH STUDY 06/11/2013 mild acid reflux disease ANESTH, SECTION 2005, 2010twice CHOLECYSTECTOMY COLONOSCOPY 11/25/2012 normal EGD 10/08/2012 Schatzki's ringt, hiatal hernia, 2 small benign gastric polyps EGD W/O [facility] SPEC VARICIES INJ 12/10/2024 EMS PROCEDURE 06/11/2013 low LES pressures with normal relaxation response to a wet swallow with normal esophageal body motility HIATAL HERNIA REPAIR HX ORAL SURGERY PROCEDURE REMOVAL OF ANAL FISSURE 04/07/2022 FAMILY HISTORY Family history unknown: Yes Social History Tobacco Use Smoking status: Every Day Current packs/day: 0.00 Types: Cigarettes Last attempt to quit: 05/2017 Years since quittin.6 Smokeless tobacco: Never Vaping Use Vaping status: Never Used Substance Use Topics Alcohol use: No Drug use: No Current Outpatient Medications on File Prior to Visit Medication Sig pantoprazole DR (PROTONIX) 40 mg tablet Take 1 tablet by mouth two times a day before meals. naproxen (NAPROSYN) 500 mg tablet Take 500 mg by mouth two times a day with meals. No current facility-administered medications on file prior to visit. ALLERGIES No Known Allergies REVIEW OF SYSTEMS: As above PHYSICAL EXAMINATION: VIDEO EXAM: (if completed, performed via video enabled technology) GENERAL: alert and appropriate, in no distress, well-hydrated, well nourished, and happy, smiling, interactive 1. Morbid obesity with BMI of 40.0-44.9, adult (HCC) (E66.01) - Current weight 263 lbs, BMI within the range of 40.0-44.9. - Discussed potential contributing factors including decreased activity due to fatigue and dietary habits. - Reviewed options for weight management medications; noted that Medicaid may not cover injectable GLP-1 agonists unless criteria such as diabetes or heart failure are met. - Discussed alternative medications including phentermine, phentermine with Topamax, and Wellbutrin with naltrexone. - Referred to weight management team for comprehensive approach including diet, exercise, and medication management. - Provided contact number for weight management team: [phone]. - Patient inquired about purchasing GLP-1 agonists without insurance; advised on potential costs and options through compounding pharmacies. - Ordered repeat A1c to assess current glycemic control. 2. Fatigue, unspecified type (R53.83) 3. Snoring (R06.83) - Persistent fatigue despite improvement in anemia; patient reports poor sleep quality and frequent awakenings. - Ordered home sleep study to rule out obstructive sleep apnea; kit to be mailed to patient. - Advised patient to complete sleep study and return kit promptly. 4. Vitamin D deficiency (E55.9) - Previous labs indicated severe deficiency. - Patient has been on high-dose vitamin D supplementation. - Ordered repeat vitamin D level to assess response to treatment. - Sent additional vitamin D prescription to pharmacy. 5. Prediabetes (R73.03) - Previous A1c indicated prediabetic range. - Ordered repeat A1c to evaluate current status. - Discussed potential use of metformin for weight management and glycemic control; will defer to weight management team for further recommendations. John Giles APRN.CAKE PUNCHER documented in this encounter [facility] 12-29-2024 History of Present illness Narrative VIRTUAL VISIT PROGRESS NOTE This is a virtual visit. It required patient-provider interaction for the medical decision making as documented below. I have communicated my name and active licensure. The patient's identity and physical location were verified at the time of this visit. Either the patient or their legal medical detail representative has been informed of the risks and benefits of -- and alternatives to -- treatment through a remote evaluation and consents to proceed with the evaluation remotely. CC: Follow up GERD; EGD completed 12/10/24 HPI: Pati Mohamud is a 39 year old female with hx of GERD, hiatal hernia, hx cholecystectomy seen for follow up after EGD 12/10/24 for worsening GERD, hiatal hernia. EGD showed gastritis and biopsies were normal. No hiatal hernia seen. Distal esophageal bx suggested reflux. Currently on famotidine 40mg at bedtime and omeprazole 40mg daily. Currently: Symptoms are all still the same. Still having GERD despite famotidine 20mg daily and omeprazole 40mg daily. She has gained about 25 pounds over the past 2 months. TSH was normal in 07/2024. She has cut back on fried foods and is eating more salad, grilled chicken. She has cut back on Lizzie donuts and coffee. Having a BM only a couple days a week. Did see CHOIR SINGER for her heavy periods. Will be doing an internal exam and will possibly discuss Mirena. Record Review: [facility] / Outside records reviewed HISTORY REVIEWED (electronic chart updated): PAST MEDICAL HISTORY Diagnosis Date Anemia GERD (gastroesophageal reflux disease) Hiatal hernia Morbid obesity (HCC) PAST SURGICAL HISTORY Procedure Laterality Date 48 HOUR PH STUDY 06/11/2013 mild acid reflux disease ANESTH, SECTION 2005, 2010twice CHOLECYSTECTOMY COLONOSCOPY 11/25/2012 normal EGD 10/08/2012 Schatzki's ringt, hiatal hernia, 2 small benign gastric polyps EGD W/O [facility] SPEC VARICIES INJ 12/10/2024 EMS PROCEDURE 06/11/2013 low LES pressures with normal relaxation response to a wet swallow with normal esophageal body motility HIATAL HERNIA REPAIR HX ORAL SURGERY PROCEDURE REMOVAL OF ANAL FISSURE 04/07/2022 FAMILY HISTORY Family history unknown: Yes Social History Tobacco Use Smoking status: Every Day Current packs/day: 0.00 Types: Cigarettes Last attempt to quit: 05/2017 Years since quittin.6 Smokeless tobacco: Never Vaping Use Vaping status: Never Used Substance Use Topics Alcohol use: No Drug use: No Current Outpatient Medications Medication Sig Dispense Refill famotidine (PEPCID) 20 mg tablet Take 2 tablets by mouth daily at bedtime. omeprazole (PRILOSEC) 40 mg capsule Take 1 capsule by mouth once daily. 30 capsule 2 cholecalciferol, Vitamin D3, (VITAMIN D3) 1,250 mcg (50,000 unit) cap capsule Take 1 capsule by mouth one time a week. 12 capsule 1 ferrous sulfate 325 mg (65 mg iron) tablet Take 1 tablet by mouth two times a day with meals. (Patient not taking: Reported on 11/26/2024) 60 tablet 2 naproxen (NAPROSYN) 500 mg tablet Take 500 mg by mouth two times a day with meals. dupilumab (DUPIXENT PEN) 300 mg/2 mL pen injection Inject 300 mg subcutaneously every 2 weeks. (Patient not taking: Reported on 11/26/2024) No current facility-administered medications for this visit. ALLERGIES No Known Allergies Review of Systems: Review of Systems All other systems reviewed and are negative. PHYSICAL EXAMINATION: Physical Exam Constitutional: Appearance: Normal appearance. She is obese. Eyes: General: No scleral icterus. Pulmonary: Effort: Pulmonary effort is normal. Neurological: Mental Status: She is alert and oriented to person, place, and time. Psychiatric: Mood and Affect: Mood normal. Behavior: Behavior normal. Thought Content: Thought content normal. Judgment: Judgment normal. Assessment and Plan: (K21.9) Gastroesophageal reflux disease, unspecified whether esophagitis present (primary encounter diagnosis) (K44.9) Hiatal hernia (K59.00) Constipation, unspecified constipation type (E66.813) Obesity, Class III, BMI >= 40 1. Gastroesophageal reflux disease, unspecified whether esophagitis present (Primary) - Continued GERD. Could be exacerbated by recent weight gain. Will have her switch from omeprazole to pantoprazole 40mg BID and continue famotidine PRN. - she is interested in referral to weight management clinic - continue to limit caffeine, NSAIDS, spicy/tomato based and fried foods. - pantoprazole DR (PROTONIX) 40 mg tablet; Take 1 tablet by mouth two times a day before meals. Dispense: 60 tablet; Refill: 2 2. Hiatal hernia - pantoprazole DR (PROTONIX) 40 mg tablet; Take 1 tablet by mouth two times a day before meals. Dispense: 60 tablet; Refill: 2 3. Constipation, unspecified constipation type - check AXR and treat accordingly - XR ABDOMEN 2V ROUTINE SUPINE W UPRIGHT/DECUB/CTL; Future 4. Obesity, Class III, BMI >= 40 - CONSULT TO [facility]; Future Follow up in office 4 months/PRN Bradly Roy APRN.CNP December 29, 2024 10:38 AM documented in this encounter [facility] 12-29-2024 Note HNO ID: [id number] Author: BRADLY ROY APRN.CNP Service: ? Author Type: Nurse Practitioner Type: Progress Notes Filed: 12/29/2024 10:44 Note Text: VIRTUAL VISIT PROGRESS NOTE This is a virtual visit. It required patient-provider interaction for the medical decision making as documented below. I have communicated my name and active licensure. The patient's identity and physical location were verified at the time of this visit. Either the patient or their legal medical detail representative has been informed of the risks and benefits of -- and alternatives to -- treatment through a remote evaluation and consents to proceed with the evaluation remotely. CC: Follow up GERD; EGD completed 12/10/24 HPI: Pati Mohamud is a 39 year old female with hx of GERD, hiatal hernia, hx cholecystectomy seen for follow up after EGD 12/10/24 for worsening GERD, hiatal hernia. EGD showed gastritis and biopsies were normal. No hiatal hernia seen. Distal esophageal bx suggested reflux. Currently on famotidine 40mg at bedtime and omeprazole 40mg daily. Currently: Symptoms are all still the same. Still having GERD despite famotidine 20mg daily and omeprazole 40mg daily. She has gained about 25 pounds over the past 2 months. TSH was normal in 07/2024. She has cut back on fried foods and is eating more salad, grilled chicken. She has cut back on [employer]izzie donuts and coffee. Having a BM only a couple days a week. Did see CHOIR SINGER for her heavy periods. Will be doing an internal exam and will possibly discuss Mirena. Record Review: [facility] / Outside records reviewed HISTORY REVIEWED (electronic chart updated): PAST MEDICAL HISTORY Diagnosis Date Anemia GERD (gastroesophageal reflux disease) Hiatal hernia Morbid obesity (HCC) PAST SURGICAL HISTORY Procedure Laterality Date 48 HOUR PH STUDY 06/11/2013 mild acid reflux disease ANESTH, SECTION 2005, 2010twice CHOLECYSTECTOMY COLONOSCOPY 11/25/2012 normal EGD 10/08/2012 Schatzki's ringt, hiatal hernia, 2 small benign gastric polyps EGD W/O [facility] SPEC VARICIES INJ 12/10/2024 EMS PROCEDURE 06/11/2013 low LES pressures with normal relaxation response to a wet swallow with normal esophageal body motility HIATAL HERNIA REPAIR HX ORAL SURGERY PROCEDURE REMOVAL OF ANAL FISSURE 04/07/2022 FAMILY HISTORY Family history unknown: Yes Social History Tobacco Use Smoking status: Every Day Current packs/day: 0.00 Types: Cigarettes Last attempt to quit: 05/2017 Years since quittin.6 Smokeless tobacco: Never Vaping Use Vaping status: Never Used Substance Use Topics Alcohol use: No Drug use: No Current Outpatient Medications Medication Sig Dispense Refill famotidine (PEPCID) 20 mg tablet Take 2 tablets by mouth daily at bedtime. omeprazole (PRILOSEC) 40 mg capsule Take 1 capsule by mouth once daily. 30 capsule 2 cholecalciferol, Vitamin D3, (VITAMIN D3) 1,250 mcg (50,000 unit) cap capsule Take 1 capsule by mouth one time a week. 12 capsule 1 ferrous sulfate 325 mg (65 mg iron) tablet Take 1 tablet by mouth two times a day with meals. (Patient not taking: Reported on 11/26/2024) 60 tablet 2 naproxen (NAPROSYN) 500 mg tablet Take 500 mg by mouth two times a day with meals. dupilumab (DUPIXENT PEN) 300 mg/2 mL pen injection Inject 300 mg subcutaneously every 2 weeks. (Patient not taking: Reported on 11/26/2024) No current facility-administered medications for this visit. ALLERGIES No Known Allergies Review of Systems: Review of Systems All other systems reviewed and are negative. PHYSICAL EXAMINATION: Physical Exam Constitutional: Appearance: Normal appearance. She is obese. Eyes: General: No scleral icterus. Pulmonary: Effort: Pulmonary effort is normal. Neurological: Mental Status: She is alert and oriented to person, place, and time. Psychiatric: Mood and Affect: Mood normal. Behavior: Behavior normal. Thought Content: Thought content normal. Judgment: Judgment normal. Assessment and Plan: (K21.9) Gastroesophageal reflux disease, unspecified whether esophagitis present (primary encounter diagnosis) (K44.9) Hiatal hernia (K59.00) Constipation, unspecified constipation type (E66.813) Obesity, Class III, BMI >= 40 1. Gastroesophageal reflux disease, unspecified whether esophagitis present (Primary) - Continued GERD. Could be exacerbated by recent weight gain. Will have her switch from omeprazole to pantoprazole 40mg BID and continue famotidine PRN. - she is interested in referral to weight management clinic - continue to limit caffeine, NSAIDS, spicy/tomato based and fried foods. - pantoprazole DR (PROTONIX) 40 mg tablet; Take 1 tablet by mouth two times a day before meals. Dispense: 60 tablet; Refill: 2 2. Hiatal hernia - pantoprazole DR (PROTONIX) 40 mg tablet; Take 1 tablet by mouth two times a day before meals. Dispense: 60 tablet; Refill: 2 3. Constipation, unspecified constipatio (more content not included)... [facility] 12-25-2024 History of Present illness Narrative Computer Publisher was offered to the patient for exam. Patient declined offer of salesperson women's hats Images from the original note were not included. Pati Bond 12/25/2024 39 y.o. Chief Complaint Patient presents with New Patient Primary Care Physician: No primary care provider on file. HPI: Pati Bond is a 39 y.o. female here today for annual exam. This is a New patient patient. Has had several years of very heavy MP, bleeding through ultra tampon every hour. Seeing hematology and advised to have MP checked as possible cause for anemia. Previosuly had Mirena, helped slow bleeding. Hx Cdx3 and BTL. Patient's last menstrual period was 11/27/2024. Menses: regular. Flow heavy Intermenstrual bleeding: no Dysmenorrhea:moderate, occurring first 1-2 days of flow Contraception: no method CHOIR SINGER Complaints: yes - see above Sexually Active: yes Dyspareunia: No STD History: no Pap smear: normal 3 years ago per pt Family History: Denies history of breast, colon, ovarian, uterine, prostate or pancreatic cancer. Medical History[1] Surgical History[2] Family History[3] OB History Para Term AB Living 4 4 3 1 0 3 SAB IAB Ectopic Multiple Live Births 0 3 # Outcome Date GA Lbr Jose L/2nd Weight Sex Type Anes PTL Lv 4 Term 06/23/19 F CS-Unspec BETY 3 10/06/17 M Vag-Spont Y FD Complications: Premature rupture of membranes 2 Term 03/17/11 39w0d 8 lb 13 oz (3.997 kg) F CS-Unspec Spinal N BETY 1 Term 01/29/06 41w0d 11 lb 1 oz (5.018 kg) M CS-Unspec Gen N BETY MEDICATIONS: Current Medications[4] ALLERGIES: Allergies as of 12/25/2024 (No Known Allergies) REVIEW OF SYSTEMS Review of Systems All other systems reviewed and are negative. PHYSICAL EXAMINATION: BP 131/85 Pulse 90 Wt 261 lb (118 kg) LMP 11/27/2024 Physical Exam Vitals and nursing note reviewed. Constitutional: General: She is not in acute distress. Appearance: Normal appearance. She is not toxic-appearing. HENT: Head: Normocephalic and atraumatic. Eyes: Extraocular Movements: Extraocular movements intact. Pulmonary: Effort: Pulmonary effort is normal. No respiratory distress. Chest: Breasts: Right: Normal. Left: Normal. Abdominal: Palpations: Abdomen is soft. Tenderness: There is no abdominal tenderness. There is no guarding or rebound. Genitourinary: General: Normal vulva. Vagina: Normal. Cervix: Normal. Uterus: Normal. Adnexa: Right adnexa normal and left adnexa normal. Skin: General: Skin is warm and dry. Neurological: General: No focal deficit present. Mental Status: She is alert and oriented to person, place, and time. Psychiatric: Mood and Affect: Mood normal. Behavior: Behavior normal. Thought Content: Thought content normal. ASSESSMENT: 39 y.o. Diagnosis Plan 1. Well woman exam with routine gynecological exam 2. Cervical cancer screening Pap Smear 3. Abnormal uterine bleeding (AUB) US pelvis transvaginal PLAN: - Will obtain TVUS for AUB and discuss results, possible IUD vs nexplanon following - Pap collected today - Counseled on breast self awareness. - Counseled to exercise at least 30min three times per week. Take a daily multivitamin or 1000 Units of Vit D. - control and barrier recommendations discussed. - STD counseling and prevention reviewed. - Gardisil counseling completed for all patients 9-45 yo. - Routine health maintenance per patients PCP. Follow up in about 4 weeks (around 01/22/2025) for US follow up. Orders Placed This Encounter Procedures US pelvis transvaginal Standing Status: Future Expected Date: 12/25/2024 Expiration Date: 12/25/2025 [1] Past Medical History: Diagnosis Date Acute anemia [2] Past Surgical History: Procedure Laterality Date CHOLECYSTECTOMY DELIVERY (HISTORICAL) X3 DENTAL SURGERY RECTAL SURGERY 2nd surgery RECTAL VAGINAL FISTULECTOMY TONSILLECTOMY [3] No family history on file. [4] Current Outpatient Medications Medication Sig Dispense Refill ergocalciferol (Vitamin D-2) 1.25 MG (49726 UT) capsule Take 1.25 mg by mouth 1 (one) time per week. No current facility-administered medications for this visit. documented in this encounter [facility] 12-10-2024 History and physical note CHIEF COMPLAINT: Patient presents with: GERD: Hiatal Hernia This consult was requested by No ref. provider found for an opinion regarding GERD. My final recommendations will be communicated to the requesting health care provider by way of the shared medical record for internal providers or letter via the [employer] for external providers. Recording using [employer] software for draft documentation of the visit was discussed with the patient/authorized medical detail representative; all questions welcomed and answered. Patient/authorized medical detail representative agreed to proceed HPI: Pati Mohamud is a 38 year old female with hx of GERD, hiatal hernia, hx cholecystectomy who presenting for evaluation of worsening acid reflux and hiatal hernia symptoms. Patient reports a long-standing history of acid reflux, spanning over 5-10 years. She was previously diagnosed with a hiatal hernia following an upper endoscopy performed in 2012. Initially, her symptoms were intermittent, occurring once or twice a week, but over the past year, she has experienced daily episodes of acid reflux and hiatal hernia symptoms. Despite being on a regimen of omeprazole and famotidine, she continues to experience acid reflux, describing it as a gagging, kind of like acid sensation. She also reports episodes of esophageal spasms, characterized by a feeling of tightness and difficulty breathing for a few minutes, which she attributes to her hiatal hernia. These symptoms have been present since her initial diagnosis and have progressively worsened. She denies dysphagia, nausea, emesis, hematochezia, or melena. Patient reports nocturnal symptoms of reflux and heartburn, despite eating dinner early around 16:00-16:30. She uses Tums approximately 3-4 times a week, mostly at night, for symptom relief. She also reports a decreased appetite and early satiety, stating, My appetite sucks. She often skips breakfast and sometimes dinner, depending on her hunger levels. Patient consumes a significant amount of caffeine, including six shots of espresso for breakfast and a can of soda daily. She also uses ibuprofen daily or every other day for chronic pain, which she attributes to a possible diagnosis of fibromyalgia or stress. She reports generalized body pain, including her knees and legs, stating, my body's always hurting, my knees, my legs, like, just everything. Patient has a history of anemia, which she attributes to heavy menstrual periods. She reports using ultra-absorbency tampons and experiencing overflow within an hour. She has an upcoming appointment with a serger to address this issue. Past Diagnostic Results: - Upper Endoscopy (2012): Diagnosed with hiatal hernia. - Cholecystectomy: Performed within the last 10 years, after the 2013 endoscopy. Record Review: [facility] / Outside records reviewed. PAST MEDICAL HISTORY PAST MEDICAL HISTORY Diagnosis Date Anemia GERD (gastroesophageal reflux disease) Hiatal hernia Morbid obesity (HCC) PAST SURGICAL HISTORY PAST SURGICAL HISTORY Procedure Laterality Date 48 HOUR PH STUDY 06/11/2013 mild acid reflux disease ANESTH, SECTION 2005, 2010twice CHOLECYSTECTOMY COLONOSCOPY 11/25/2012 normal EGD 10/08/2012 Schatzki's ringt, hiatal hernia, 2 small benign gastric polyps EMS PROCEDURE 06/11/2013 low LES pressures with normal relaxation response to a wet swallow with normal esophageal body motility HIATAL HERNIA REPAIR HX ORAL SURGERY PROCEDURE REMOVAL OF ANAL FISSURE 04/07/2022 Allergies: ALLERGIES ALLERGIES No Known Allergies Medications: CURRENT MEDICATIONS famotidine (PEPCID) 20 mg tablet Take 2 tablets by mouth daily at bedtime. omeprazole (PRILOSEC) 40 mg capsule Take 1 capsule by mouth once daily. cholecalciferol, Vitamin D3, (VITAMIN D3) 1,250 mcg (50,000 unit) cap capsule Take 1 capsule by mouth one time a week. naproxen (NAPROSYN) 500 mg tablet Take 500 mg by mouth two times a day with meals. ferrous sulfate 325 mg (65 mg iron) tablet Take 1 tablet by mouth two times a day with meals. (Patient not taking: Reported on 11/26/2024) dupilumab (DUPIXENT PEN) 300 mg/2 mL pen injection Inject 300 mg subcutaneously every 2 weeks. (Patient not taking: Reported on 11/26/2024) FAMILY HISTORY FAMILY HISTORY Family history unknown: Yes OCCUPATION & MARITAL STATUS Employer And Job Title: None on file Years Of Education Completed: Not specified Marital Status: SOCIAL HISTORY Social History Tobacco Use Smoking status: Every Day Current packs/day: 0.00 Types: Cigarettes Last attempt to quit: 05/2017 Years since quittin.5 Smokeless tobacco: Never Vaping Use Vaping status: Never Used Substance Use Topics Alcohol use: No Drug use: No Review of Systems: Review of Systems Constitutional: Positive for fatigue. Gastrointestinal: Positive for abdominal pain. Gas, Heartburn All other systems reviewed and are negative. Are you taking any blood thinners? No Physical Examination: BP 134/84 Temp 85 Ht 5' 5.5 (1.66m) Wt 261 lb 8 oz (118.6kg) LMP 08/13/2024 BMI 42.84 kg/(m^2). Physical Exam Vitals and nursing note reviewed. Constitutional: Appearance: Normal appearance. She is morbidly obese. HENT: Head: Normocephalic and atraumatic. Eyes: General: No scleral icterus. Cardiovascular: Rate and Rhythm: Normal rate and regular rhythm. Pulmonary: Breath sounds: Normal breath sounds. Abdominal: General: Abdomen is protuberant. Bowel sounds are normal. Palpations: Abdomen is soft. Tenderness: There is no abdominal tenderness. There is no guarding or rebound. Skin: General: Skin is warm and dry. Neurological: Mental Status: She is alert and oriented to person, place, and time. Psychiatric: Mood and Affect: Mood normal. Behavior: Behavior normal. Thought Content: Thought content normal. Judgment: Judgment normal. ASSESSMENT: 1. Gastroesophageal reflux disease, unspecified whether esophagitis present (K21.9) Hiatal hernia (K44.9) GERD symptoms have worsened over the past year, now occurring daily despite current medication regimen of famotidine and omeprazole. Previous EGD in 2012 revealed a 2cm hiatal hernia. No dysphagia, hematochezia, or melena reported. Significant caffeine intake and frequent use of ibuprofen noted. No history of hiatal hernia repair surgery. - Educated patient on the pathophysiology of hiatal hernia and its impact on GERD. - Scheduled repeat EGD to assess for changes in hiatal hernia size, presence of inflammation, and to rule out H. pylori infection. - Advised patient to continue current medication regimen. - Discussed need for a racecar driver post-procedure and NPO status after midnight prior to the EGD. - Follow-up appointment to be scheduled post-EGD to discuss findings and further management. - cut out caffeine and avoid NSAIDs - continue current medications - EGD DIAGNOSTIC; Future 2. Anemia, unspecified type (D64.9) Patient reports heavy menstrual bleeding, likely contributing to anemia. No evidence of gastrointestinal bleeding reported. - Advised patient to follow up with serger for evaluation and management of heavy menstrual bleeding. - Deferred colonoscopy at this time; will reconsider based on gynecological evaluation and if anemia persists. Follow up in office after EGD Bradly Roy APRN.CAKE PUNCHER November 26, 2024 3:22 PM UPDATED HISTORY AND PHYSICAL EXAMINATION SERVICE DATE: 12/10/2024 SERVICE TIME: 2:45 PM PHYSICAL EXAM MUST BE COMPLETED ON ADMISSION The History and Physical (completed in the past 30 days) has been reviewed and the patient has been examined. The contents accurately reflect the patient's condition with the following additions or revisions since the H&P was completed. Examination indicates no changes. This H&P can be found in the attached. SIGNATURE: Eyad Cartwright III, MD PATIENT NAME: Pati Mohamud DATE: December 10, 2024 TIME: 2:44 PM [facility] 12-10-2024 History and physical note CHIEF COMPLAINT: Patient presents with: GERD: Hiatal Hernia This consult was requested by No ref. provider found for an opinion regarding GERD. My final recommendations will be communicated to the requesting health care provider by way of the shared medical record for internal providers or letter via the [employer] for external providers. Recording using [employer] software for draft documentation of the visit was discussed with the patient/authorized medical detail representative; all questions welcomed and answered. Patient/authorized medical detail representative agreed to proceed HPI: Pati Mohamud is a 38 year old female with hx of GERD, hiatal hernia, hx cholecystectomy who presenting for evaluation of worsening acid reflux and hiatal hernia symptoms. Patient reports a long-standing history of acid reflux, spanning over 5-10 years. She was previously diagnosed with a hiatal hernia following an upper endoscopy performed in 2012. Initially, her symptoms were intermittent, occurring once or twice a week, but over the past year, she has experienced daily episodes of acid reflux and hiatal hernia symptoms. Despite being on a regimen of omeprazole and famotidine, she continues to experience acid reflux, describing it as a gagging, kind of like acid sensation. She also reports episodes of esophageal spasms, characterized by a feeling of tightness and difficulty breathing for a few minutes, which she attributes to her hiatal hernia. These symptoms have been present since her initial diagnosis and have progressively worsened. She denies dysphagia, nausea, emesis, hematochezia, or melena. Patient reports nocturnal symptoms of reflux and heartburn, despite eating dinner early around 16:00-16:30. She uses Tums approximately 3-4 times a week, mostly at night, for symptom relief. She also reports a decreased appetite and early satiety, stating, My appetite sucks. She often skips breakfast and sometimes dinner, depending on her hunger levels. Patient consumes a significant amount of caffeine, including six shots of espresso for breakfast and a can of soda daily. She also uses ibuprofen daily or every other day for chronic pain, which she attributes to a possible diagnosis of fibromyalgia or stress. She reports generalized body pain, including her knees and legs, stating, my body's always hurting, my knees, my legs, like, just everything. Patient has a history of anemia, which she attributes to heavy menstrual periods. She reports using ultra-absorbency tampons and experiencing overflow within an hour. She has an upcoming appointment with a serger to address this issue. Past Diagnostic Results: - Upper Endoscopy (2012): Diagnosed with hiatal hernia. - Cholecystectomy: Performed within the last 10 years, after the 2013 endoscopy. Record Review: [facility] / Outside records reviewed. PAST MEDICAL HISTORY PAST MEDICAL HISTORY Diagnosis Date Anemia GERD (gastroesophageal reflux disease) Hiatal hernia Morbid obesity (HCC) PAST SURGICAL HISTORY PAST SURGICAL HISTORY Procedure Laterality Date 48 HOUR PH STUDY 06/11/2013 mild acid reflux disease ANESTH, SECTION 2005, 2010twice CHOLECYSTECTOMY COLONOSCOPY 11/25/2012 normal EGD 10/08/2012 Schatzki's ringt, hiatal hernia, 2 small benign gastric polyps EMS PROCEDURE 06/11/2013 low LES pressures with normal relaxation response to a wet swallow with normal esophageal body motility HIATAL HERNIA REPAIR HX ORAL SURGERY PROCEDURE REMOVAL OF ANAL FISSURE 04/07/2022 Allergies: ALLERGIES ALLERGIES No Known Allergies Medications: CURRENT MEDICATIONS famotidine (PEPCID) 20 mg tablet Take 2 tablets by mouth daily at bedtime. omeprazole (PRILOSEC) 40 mg capsule Take 1 capsule by mouth once daily. cholecalciferol, Vitamin D3, (VITAMIN D3) 1,250 mcg (50,000 unit) cap capsule Take 1 capsule by mouth one time a week. naproxen (NAPROSYN) 500 mg tablet Take 500 mg by mouth two times a day with meals. ferrous sulfate 325 mg (65 mg iron) tablet Take 1 tablet by mouth two times a day with meals. (Patient not taking: Reported on 11/26/2024) dupilumab (DUPIXENT PEN) 300 mg/2 mL pen injection Inject 300 mg subcutaneously every 2 weeks. (Patient not taking: Reported on 11/26/2024) FAMILY HISTORY FAMILY HISTORY Family history unknown: Yes OCCUPATION & MARITAL STATUS Employer And Job Title: None on file Years Of Education Completed: Not specified Marital Status: SOCIAL HISTORY Social History Tobacco Use Smoking status: Every Day Current packs/day: 0.00 Types: Cigarettes Last attempt to quit: 05/2017 Years since quittin.5 Smokeless tobacco: Never Vaping Use Vaping status: Never Used Substance Use Topics Alcohol use: No Drug use: No Review of Systems: Review of Systems Constitutional: Positive for fatigue. Gastrointestinal: Positive for abdominal pain. Gas, Heartburn All other systems reviewed and are negative. Are you taking any blood thinners? No Physical Examination: BP 134/84 Temp 85 Ht 5' 5.5 (1.66m) Wt 261 lb 8 oz (118.6kg) LMP 08/13/2024 BMI 42.84 kg/(m^2). Physical Exam Vitals and nursing note reviewed. Constitutional: Appearance: Normal appearance. She is morbidly obese. HENT: Head: Normocephalic and atraumatic. Eyes: General: No scleral icterus. Cardiovascular: Rate and Rhythm: Normal rate and regular rhythm. Pulmonary: Breath sounds: Normal breath sounds. Abdominal: General: Abdomen is protuberant. Bowel sounds are normal. Palpations: Abdomen is soft. Tenderness: There is no abdominal tenderness. There is no guarding or rebound. Skin: General: Skin is warm and dry. Neurological: Mental Status: She is alert and oriented to person, place, and time. Psychiatric: Mood and Affect: Mood normal. Behavior: Behavior normal. Thought Content: Thought content normal. Judgment: Judgment normal. ASSESSMENT: 1. Gastroesophageal reflux disease, unspecified whether esophagitis present (K21.9) Hiatal hernia (K44.9) GERD symptoms have worsened over the past year, now occurring daily despite current medication regimen of famotidine and omeprazole. Previous EGD in 2012 revealed a 2cm hiatal hernia. No dysphagia, hematochezia, or melena reported. Significant caffeine intake and frequent use of ibuprofen noted. No history of hiatal hernia repair surgery. - Educated patient on the pathophysiology of hiatal hernia and its impact on GERD. - Scheduled repeat EGD to assess for changes in hiatal hernia size, presence of inflammation, and to rule out H. pylori infection. - Advised patient to continue current medication regimen. - Discussed need for a racecar driver post-procedure and NPO status after midnight prior to the EGD. - Follow-up appointment to be scheduled post-EGD to discuss findings and further management. - cut out caffeine and avoid NSAIDs - continue current medications - EGD DIAGNOSTIC; Future 2. Anemia, unspecified type (D64.9) Patient reports heavy menstrual bleeding, likely contributing to anemia. No evidence of gastrointestinal bleeding reported. - Advised patient to follow up with serger for evaluation and management of heavy menstrual bleeding. - Deferred colonoscopy at this time; will reconsider based on gynecological evaluation and if anemia persists. Follow up in office after EGD Bradly Roy APRN.CAKE P[employer]CHER November 26, 2024 3:22 PM UPDATED HISTORY AND PHYSICAL EXAMINATION SERVICE DATE: 12/10/2024 SERVICE TIME: 2:45 PM PHYSICAL EXAM MUST BE COMPLETED ON ADMISSION The History and Physical (completed in the past 30 days) has been reviewed and the patient has been examined. The contents accurately reflect the patient's condition with the following additions or revisions since the H&P was completed. Examination indicates no changes. This H&P can be found in the attached. SIGNATURE: Eyad Cartwright III, MD PATIENT NAME: Pati Mohamud DATE: December 10, 2024 TIME: 2:44 PM documented in this encounter [facility] 12-10-2024 Miscellaneous Notes Patient rescheduled at [facility] to be completed under MAC anesthesia. BMI >40. Daniel Hardin DO December 10, 2024 9:42 AM documented in this encounter [facility] 12-10-2024 Note HNO ID: [id number] Author: DANIEL HARDIN DO Service: General Surgery Author Type: Physician Type: Plan of Care Filed: 12/10/2024 09:42 Note Text: Patient rescheduled at [facility] to be completed under MAC anesthesia. BMI >40. Daniel Hardin DO December 10, 2024 9:42 AM [facility] 12-10-2024 Plan of care note Patient rescheduled at [facility] to be completed under MAC anesthesia. BMI >40. Daniel Hardin DO December 10, 2024 9:42 AM [facility] 11-26-2024 Instructions Bradly Roy APRN.CAKE PUNCHER - 11/26/2024 2:36 PM EDT Images from the original note were not included. Gastroesophageal Reflux Disease (GERD) Heartburn is a burning sensation in the center of your chest that often occurs after you eat, bend over, exercise, and sometimes at night when you are lying down. Approximately one in 10 adults has heartburn at least once a week and one in three monthly. Some women experience heartburn almost daily as a result of increased pressure on the abdomen and hormonal changes. Despite its name, heartburn has nothing to do with your heart. Heartburn symptoms indicate a condition called gastroesophageal reflux disease, or GERD. This fact sheet offers some tips on how to relieve heartburn caused by this condition. What is GERD? When you swallow, food passes down your throat and through your esophagus to your stomach. A muscle called the lower esophageal sphincter controls the opening between the esophagus and the stomach. The muscle remains tightly closed except when you swallow food. When this muscle fails to close, the acid-containing contents of the stomach can travel back up into the esophagus. This backward movement is called reflux. When stomach acid enters the lower part of the esophagus, it can produce a burning sensation, commonly referred to as heartburn. Several factors might explain why this reflux action occurs and might offer some clues for relief. The most important are: The position of your body after eating (An upright posture helps prevent reflux.) The size of the meal (Smaller meals reduce reflux.) The nature of foods you consume (Certain substances that irritate the esophagus or weaken the sphincter can cause reflux.) How is GERD treated? To treat GERD, we recommend the following: Raise the head of your bed by six inches to allow gravity to help keep the stomach's contents in the stomach. (Do not use piles of pillows because this puts your body into a bent position that actually aggravates the condition by increasing pressure on the abdomen.) Eat meals at least three to four hours before lying down, and avoid bedtime snacks. Eat moderate portions of food and smaller meals. Maintain a healthy weight to eliminate unnecessary intra-abdominal pressure caused by extra pounds. Limit consumption of fatty foods, chocolate, peppermint, coffee, tea, mohit, and alcohol - all of which relax the lower esophageal sphincter. Also, avoid tomatoes and citrus fruits or juices, which contribute additional acid that can irritate the esophagus. Give up smoking, which also relaxes the lower esophageal sphincter. Wear loose belts and clothing. What if my GERD and heartburn persist? Many people will get relief from heartburn, and the pressure that goes with esophageal reflux, by following the tips above. Nxgi-wkd-yduidwy liquid antacids can also help in treating occasional heartburn. If your symptoms persist, do not respond to treatment, or occur often, you need to see a doctor for testing and treatment. A visual examination of the esophagus, known as an endoscopy, might be necessary. Sometimes this test shows that the lining of the esophagus is severely inflamed and irritated by stomach acid. This condition, known as esophagitis, might lead to bleeding and difficulty in swallowing. Medical treatment for this condition might be necessary. This usually involves blocking acid production in the stomach. Xfok-ucg-eijuvju medicines, such as Tums , Rolaids , Maalox , Zantac , Tagamet , Prilosec, ,Pepcid , and Axid , can generally relieve esophageal reflux symptoms. Patients with more severe symptoms or those who have been using antacids for more than two weeks should contact their doctors, who can prescribe medicines to control or eliminate acid, such as H2-receptor antagonists and proton pump inhibitors. Only a few people need surgery to correct the disorder. References [employer]. Acid Reflux Accessed 02/07/2016. [employer]. Gastroesophageal Reflux Disease (GERD) Accessed 02/07/2016. National [place] [employer] and [employer]. Gastroesophageal Reflux (TAMY) and Gastroesophageal Reflux Disease (GERD) Accessed 02/07/2016. Copyright [id number] The [facility]. All rights reserved This information is provided by the [facility] and is not intended to replace themedical advice of your doctor or health care provider. Please consult your health care provider for advice about a specific medical condition. For additional health information, please contact the Center [facility] Consumer [facility] Information at the [facility] or toll-free extension [phone]. If you prefer, you may visit [email or web address] or [email or web address]. This document was last reviewed on: 2016 documented in this encounter [facility] 11-26-2024 Note HNO ID: [id number] Author: BRADLY ROY APRN.ARPIT Service: ? Author Type: Nurse Practitioner Type: Progress Notes Filed: 11/26/2024 15:24 Note Text: CHIEF COMPLAINT: Patient presents with: GERD: Hiatal Hernia This consult was requested by No ref. provider found for an opinion regarding GERD. My final recommendations will be communicated to the requesting health care provider by way of the shared medical record for internal providers or letter via the [employer] for external providers. Recording using Brain[employer] software for draft documentation of the visit was discussed with the patient/authorized medical detail representative; all questions welcomed and answered. Patient/authorized medical detail representative agreed to proceed HPI: Pati Mohamud is a 38 year old female with hx of GERD, hiatal hernia, hx cholecystectomy who presenting for evaluation of worsening acid reflux and hiatal hernia symptoms. Patient reports a long-standing history of acid reflux, spanning over 5-10 years. She was previously diagnosed with a hiatal hernia following an upper endoscopy performed in 2012. Initially, her symptoms were intermittent, occurring once or twice a week, but over the past year, she has experienced daily episodes of acid reflux and hiatal hernia symptoms. Despite being on a regimen of omeprazole and famotidine, she continues to experience acid reflux, describing it as a gagging, kind of like acid sensation. She also reports episodes of esophageal spasms, characterized by a feeling of tightness and difficulty breathing for a few minutes, which she attributes to her hiatal hernia. These symptoms have been present since her initial diagnosis and have progressively worsened. She denies dysphagia, nausea, emesis, hematochezia, or melena. Patient reports nocturnal symptoms of reflux and heartburn, despite eating dinner early around 16:00-16:30. She uses Tums approximately 3-4 times a week, mostly at night, for symptom relief. She also reports a decreased appetite and early satiety, stating, My appetite sucks. She often skips breakfast and sometimes dinner, depending on her hunger levels. Patient consumes a significant amount of caffeine, including six shots of espresso for breakfast and a can of soda daily. She also uses ibuprofen daily or every other day for chronic pain, which she attributes to a possible diagnosis of fibromyalgia or stress. She reports generalized body pain, including her knees and legs, stating, my body's always hurting, my knees, my legs, like, just everything. Patient has a history of anemia, which she attributes to heavy menstrual periods. She reports using ultra-absorbency tampons and experiencing overflow within an hour. She has an upcoming appointment with a serger to address this issue. Past Diagnostic Results: - Upper Endoscopy (2012): Diagnosed with hiatal hernia. - Cholecystectomy: Performed within the last 10 years, after the 2013 endoscopy. Record Review: [facility] / Outside records reviewed. PAST MEDICAL HISTORY Diagnosis Date Anemia GERD (gastroesophageal reflux disease) Hiatal hernia Morbid obesity (HCC) PAST SURGICAL HISTORY Procedure Laterality Date 48 HOUR PH STUDY 06/11/2013 mild acid reflux disease ANESTH, SECTION 2005, 2010twice CHOLECYSTECTOMY COLONOSCOPY 11/25/2012 normal EGD 10/08/2012 Schatzki's ringt, hiatal hernia, 2 small benign gastric polyps EMS PROCEDURE 06/11/2013 low LES pressures with normal relaxation response to a wet swallow with normal esophageal body motility HIATAL HERNIA REPAIR HX ORAL SURGERY PROCEDURE REMOVAL OF ANAL FISSURE 04/07/2022 Allergies: ALLERGIES No Known Allergies Medications: famotidine (PEPCID) 20 mg tablet Take 2 tablets by mouth daily at bedtime. omeprazole (PRILOSEC) 40 mg capsule Take 1 capsule by mouth once daily. cholecalciferol, Vitamin D3, (VITAMIN D3) 1,250 mcg (50,000 unit) cap capsule Take 1 capsule by mouth one time a week. naproxen (NAPROSYN) 500 mg tablet Take 500 mg by mouth two times a day with meals. ferrous sulfate 325 mg (65 mg iron) tablet Take 1 tablet by mouth two times a day with meals. (Patient not taking: Reported on 11/26/2024) dupilumab (DUPIXENT PEN) 300 mg/2 mL pen injection Inject 300 mg subcutaneously every 2 weeks. (Patient not taking: Reported on 11/26/2024) FAMILY HISTORY Family history unknown: Yes Employer And Job Title: None on file Years Of Education Completed: Not specified Marital Status: Social History Tobacco Use Smoking status: Every Day Current packs/day: 0.00 Types: Cigarettes Last attempt to quit: 05/2017 Years since quittin.5 Smokeless tobacco: Never Vaping Use Vaping status: Never Used Substance Use Topics Alcohol use: No Drug use: No Review of Systems: Review of Systems Constitutional: Positive for fatigue. Gastrointestinal: Positive for abdominal pain. Gas, H (more content not included)... [facility] 11-26-2024 History of Present illness Narrative CHIEF COMPLAINT: Patient presents with: GERD: Hiatal Hernia This consult was requested by No ref. provider found for an opinion regarding GERD. My final recommendations will be communicated to the requesting health care provider by way of the shared medical record for internal providers or letter via the [employer] for external providers. Recording using Brain[employer] software for draft documentation of the visit was discussed with the patient/authorized medical detail representative; all questions welcomed and answered. Patient/authorized medical detail representative agreed to proceed HPI: Pati Mohamud is a 38 year old female with hx of GERD, hiatal hernia, hx cholecystectomy who presenting for evaluation of worsening acid reflux and hiatal hernia symptoms. Patient reports a long-standing history of acid reflux, spanning over 5-10 years. She was previously diagnosed with a hiatal hernia following an upper endoscopy performed in 2012. Initially, her symptoms were intermittent, occurring once or twice a week, but over the past year, she has experienced daily episodes of acid reflux and hiatal hernia symptoms. Despite being on a regimen of omeprazole and famotidine, she continues to experience acid reflux, describing it as a gagging, kind of like acid sensation. She also reports episodes of esophageal spasms, characterized by a feeling of tightness and difficulty breathing for a few minutes, which she attributes to her hiatal hernia. These symptoms have been present since her initial diagnosis and have progressively worsened. She denies dysphagia, nausea, emesis, hematochezia, or melena. Patient reports nocturnal symptoms of reflux and heartburn, despite eating dinner early around 16:00-16:30. She uses Tums approximately 3-4 times a week, mostly at night, for symptom relief. She also reports a decreased appetite and early satiety, stating, My appetite sucks. She often skips breakfast and sometimes dinner, depending on her hunger levels. Patient consumes a significant amount of caffeine, including six shots of espresso for breakfast and a can of soda daily. She also uses ibuprofen daily or every other day for chronic pain, which she attributes to a possible diagnosis of fibromyalgia or stress. She reports generalized body pain, including her knees and legs, stating, my body's always hurting, my knees, my legs, like, just everything. Patient has a history of anemia, which she attributes to heavy menstrual periods. She reports using ultra-absorbency tampons and experiencing overflow within an hour. She has an upcoming appointment with a serger to address this issue. Past Diagnostic Results: - Upper Endoscopy (2012): Diagnosed with hiatal hernia. - Cholecystectomy: Performed within the last 10 years, after the 2013 endoscopy. Record Review: [facility] / Outside records reviewed. PAST MEDICAL HISTORY Diagnosis Date Anemia GERD (gastroesophageal reflux disease) Hiatal hernia Morbid obesity (HCC) PAST SURGICAL HISTORY Procedure Laterality Date 48 HOUR PH STUDY 06/11/2013 mild acid reflux disease ANESTH, SECTION 2005, 2010twice CHOLECYSTECTOMY COLONOSCOPY 11/25/2012 normal EGD 10/08/2012 Schatzki's ringt, hiatal hernia, 2 small benign gastric polyps EMS PROCEDURE 06/11/2013 low LES pressures with normal relaxation response to a wet swallow with normal esophageal body motility HIATAL HERNIA REPAIR HX ORAL SURGERY PROCEDURE REMOVAL OF ANAL FISSURE 04/07/2022 Allergies: ALLERGIES No Known Allergies Medications: famotidine (PEPCID) 20 mg tablet Take 2 tablets by mouth daily at bedtime. omeprazole (PRILOSEC) 40 mg capsule Take 1 capsule by mouth once daily. cholecalciferol, Vitamin D3, (VITAMIN D3) 1,250 mcg (50,000 unit) cap capsule Take 1 capsule by mouth one time a week. naproxen (NAPROSYN) 500 mg tablet Take 500 mg by mouth two times a day with meals. ferrous sulfate 325 mg (65 mg iron) tablet Take 1 tablet by mouth two times a day with meals. (Patient not taking: Reported on 11/26/2024) dupilumab (DUPIXENT PEN) 300 mg/2 mL pen injection Inject 300 mg subcutaneously every 2 weeks. (Patient not taking: Reported on 11/26/2024) FAMILY HISTORY Family history unknown: Yes Employer And Job Title: None on file Years Of Education Completed: Not specified Marital Status: Social History Tobacco Use Smoking status: Every Day Current packs/day: 0.00 Types: Cigarettes Last attempt to quit: 05/2017 Years since quittin.5 Smokeless tobacco: Never Vaping Use Vaping status: Never Used Substance Use Topics Alcohol use: No Drug use: No Review of Systems: Review of Systems Constitutional: Positive for fatigue. Gastrointestinal: Positive for abdominal pain. Gas, Heartburn All other systems reviewed and are negative. Are you taking any blood thinners? No Physical Examination: BP 134/84 Temp 85 Ht 5' 5.5 (1.66m) Wt 261 lb 8 oz (118.6kg) LMP 08/13/2024 BMI 42.84 kg/(m^2). Physical Exam Vitals and nursing note reviewed. Constitutional: Appearance: Normal appearance. She is morbidly obese. HENT: Head: Normocephalic and atraumatic. Eyes: General: No scleral icterus. Cardiovascular: Rate and Rhythm: Normal rate and regular rhythm. Pulmonary: Breath sounds: Normal breath sounds. Abdominal: General: Abdomen is protuberant. Bowel sounds are normal. Palpations: Abdomen is soft. Tenderness: There is no abdominal tenderness. There is no guarding or rebound. Skin: General: Skin is warm and dry. Neurological: Mental Status: She is alert and oriented to person, place, and time. Psychiatric: Mood and Affect: Mood normal. Behavior: Behavior normal. Thought Content: Thought content normal. Judgment: Judgment normal. ASSESSMENT: 1. Gastroesophageal reflux disease, unspecified whether esophagitis present (K21.9) Hiatal hernia (K44.9) GERD symptoms have worsened over the past year, now occurring daily despite current medication regimen of famotidine and omeprazole. Previous EGD in 2012 revealed a 2cm hiatal hernia. No dysphagia, hematochezia, or melena reported. Significant caffeine intake and frequent use of ibuprofen noted. No history of hiatal hernia repair surgery. - Educated patient on the pathophysiology of hiatal hernia and its impact on GERD. - Scheduled repeat EGD to assess for changes in hiatal hernia size, presence of inflammation, and to rule out H. pylori infection. - Advised patient to continue current medication regimen. - Discussed need for a racecar driver post-procedure and NPO status after midnight prior to the EGD. - Follow-up appointment to be scheduled post-EGD to discuss findings and further management. - cut out caffeine and avoid NSAIDs - continue current medications - EGD DIAGNOSTIC; Future 2. Anemia, unspecified type (D64.9) Patient reports heavy menstrual bleeding, likely contributing to anemia. No evidence of gastrointestinal bleeding reported. - Advised patient to follow up with serger for evaluation and management of heavy menstrual bleeding. - Deferred colonoscopy at this time; will reconsider based on gynecological evaluation and if anemia persists. Follow up in office after EGD Bradly Roy APRN.CNP November 26, 2024 3:22 PM documented in this encounter [facility] 10-15-2024 Telephone encounter Note Scheduled with patient Start email sent [facility] Work Phone: 10-15-2024 Miscellaneous Notes Scheduled with patient Start email sent Patient called to schedule Iron treatments in [place]. Reji ordering. Please review and advise. documented in this encounter [facility] 10-15-2024 Telephone encounter Note Patient called to schedule Iron treatments in [place]. Reji ordering. Please review and advise. [facility] 10-14-2024 Note HNO ID: [id number] Author: HILL MENDOZA APRN.CNP Service: ? Author Type: Nurse Practitioner Type: Progress Notes Filed: 10/17/2024 13:55 Note Text: Distance Health Visit [facility] ESTABLISHED PATIENT NOTE Hematologic Oncology and Blood Disorders This visit is a Virtual MyChart video encounter which required patient-provider interaction for the medical decision making as documented below. Persons Present: patient Pati Mohamud has consented to this distance health encounter. I have communicated my name and active licensure. The patient's identity and physical location were verified at the time of this visit. Either the patient or their legal medical detail representative has been informed of the risks and benefits of -- and alternatives to -- treatment through a remote evaluation and consents to proceed with the evaluation remotely. PATIENT NAME: Pati Mohamud DATE OF SERVICE: October 14, 2024 REASON FOR VISIT: Anemia (Elements copied from my note dated 08/01/24, have been reviewed and updated where appropriate, and all reflect current assessment and medical decision making during today's encounter, 10/14/2024.) HISTORY OF THE PRESENT ILLNESS: Pati Mohamud is a 38 year old female who presents for follow up of anemia. The patient has a PMH of Anemia She reports that she used to have heavy menstrual cycles, but this has improved. Still changing every hour to two hours with ultra tampons. She reports that she has dealt with anemia for many years even previously requiring iron infusions when her 13 year old was about 1. She reports that she is not great with taking her vitamins, but she has previously taken oral iron replacement. She feels extremely run-down and has been dealing with a lot lately so she hasn't been able to be on top of this. She has not had recent GI or gynecologic evaluation. Her recent lab work show worsening microcytic anemia with a hemoglobin of 9.1 from 9.6. She endorses worsening exercise tolerance and severe fatigue. Interval History 10/14/24: Ms. Mohamud presents today for follow up. She reports that she continues to heavy menses. She completed her infusions and then resumed taking her B12 and iron pills. She reports that her symptoms of anemia have improved significantly and her lightheadedness has improved only about 1 time every other week. She has not had time to follow up with gynecology regarding her menstrual cycles or GI. She completed her recent labs which showed continued iron deficiency, but resolution of her anemia with a HGB up to 12.0. PAST MEDICAL HISTORY: PAST MEDICAL HISTORY Diagnosis Date Anemia Morbid obesity (HCC) PAST SURGICAL HISTORY: PAST SURGICAL HISTORY Procedure Laterality Date 48 HOUR PH STUDY 06/11/2013 mild acid reflux disease ANESTH, SECTION 2005, 2010twice CHOLECYSTECTOMY COLONOSCOPY 11/25/2012 normal EGD 10/08/2012 Schatzki's ringt, hiatal hernia, 2 small benign gastric polyps EMS PROCEDURE 06/11/2013 low LES pressures with normal relaxation response to a wet swallow with normal esophageal body motility HIATAL HERNIA REPAIR HX ORAL SURGERY PROCEDURE REMOVAL OF ANAL FISSURE 04/07/2022 CURRENT MEDICATIONS: famotidine (PEPCID) 20 mg tablet Take 2 tablets by mouth daily at bedtime. omeprazole (PRILOSEC) 40 mg capsule Take 1 capsule by mouth once daily. cholecalciferol, Vitamin D3, (VITAMIN D3) 1,250 mcg (50,000 unit) cap capsule Take 1 capsule by mouth one time a week. ferrous sulfate 325 mg (65 mg iron) tablet Take 1 tablet by mouth two times a day with meals. naproxen (NAPROSYN) 500 mg tablet Take 500 mg by mouth two times a day with meals. dupilumab (DUPIXENT PEN) 300 mg/2 mL pen injection Inject 300 mg subcutaneously every 2 weeks. ALLERGIES: ALLERGIES No Known Allergies FAMILY HISTORY: FAMILY HISTORY Family history unknown: Yes SOCIAL HISTORY: Social History Tobacco Use Smoking status: Every Day Current packs/day: 0.00 Types: Cigarettes Last attempt to quit: 05/2017 Years since quittin.4 Smokeless tobacco: Never Vaping Use Vaping status: Never Used Substance Use Topics Alcohol use: No Drug use: No REVIEW OF SYSTEMS Ten systems reviewed and negative except for those recorded in the HPI. VIDEO PHYSICAL EXAMINATION: (if done, performed via video enabled technology) GENERAL: alert and appropriate, in no distress, well-hydrated, well nourished, and happy, smiling, interactive Laboratory: Latest Ref Rng 08/22/2023 07/28/2024 08/02/2024 10/11/2024 WBC 3.70 - 11.00 k/uL 3.94 6.16 4.63 5.55 RBC 3.90 - 5.20 m/uL 4.53 4.29 4.54 4.58 Hemoglobin 11.5 - 15.5 g/dL 10.3 (L) 9.1 (L) 9.8 (L) 12.0 Hematocrit 36.0 - 46.0 % 34.2 (L) 31.8 (L) 34.0 (L) 38.3 MCV 80.0 - 100.0 fL 75.5 (L) 74.1 (L) 74.9 (L) 83.6 MCH 26.0 - 34.0 pg 22.7 (L) 21.2 (L) 21.6 (L) 26.2 MCHC 30.5 - 36.0 g/dL 30.1 (L) 2 (more content not included)... [facility] 10-14-2024 History of Present illness Narrative Distance Health Visit [facility] ESTABLISHED PATIENT NOTE Hematologic Oncology and Blood Disorders This visit is a Virtual MyChart video encounter which required patient-provider interaction for the medical decision making as documented below. Persons Present: patient Pati Mohamud has consented to this distance health encounter. I have communicated my name and active licensure. The patient's identity and physical location were verified at the time of this visit. Either the patient or their legal medical detail representative has been informed of the risks and benefits of -- and alternatives to -- treatment through a remote evaluation and consents to proceed with the evaluation remotely. PATIENT NAME: Pati Mohamud DATE OF SERVICE: October 14, 2024 REASON FOR VISIT: Anemia (Elements copied from my note dated 08/01/24, have been reviewed and updated where appropriate, and all reflect current assessment and medical decision making during today's encounter, 10/14/2024.) HISTORY OF THE PRESENT ILLNESS: Pati Mohamud is a 38 year old female who presents for follow up of anemia. The patient has a PMH of Anemia She reports that she used to have heavy menstrual cycles, but this has improved. Still changing every hour to two hours with ultra tampons. She reports that she has dealt with anemia for many years even previously requiring iron infusions when her 15 year old was about 1. She reports that she is not great with taking her vitamins, but she has previously taken oral iron replacement. She feels extremely run-down and has been dealing with a lot lately so she hasn't been able to be on top of this. She has not had recent GI or gynecologic evaluation. Her recent lab work show worsening microcytic anemia with a hemoglobin of 9.1 from 9.6. She endorses worsening exercise tolerance and severe fatigue. Interval History 10/14/24: Ms. Mohamud presents today for follow up. She reports that she continues to heavy menses. She completed her infusions and then resumed taking her B12 and iron pills. She reports that her symptoms of anemia have improved significantly and her lightheadedness has improved only about 1 time every other week. She has not had time to follow up with gynecology regarding her menstrual cycles or GI. She completed her recent labs which showed continued iron deficiency, but resolution of her anemia with a HGB up to 12.0. PAST MEDICAL HISTORY: PAST MEDICAL HISTORY Diagnosis Date Anemia Morbid obesity (HCC) PAST SURGICAL HISTORY: PAST SURGICAL HISTORY Procedure Laterality Date 48 HOUR PH STUDY 06/11/2013 mild acid reflux disease ANESTH, SECTION 2005, 2010twice CHOLECYSTECTOMY COLONOSCOPY 11/25/2012 normal EGD 10/08/2012 Schatzki's ringt, hiatal hernia, 2 small benign gastric polyps EMS PROCEDURE 06/11/2013 low LES pressures with normal relaxation response to a wet swallow with normal esophageal body motility HIATAL HERNIA REPAIR HX ORAL SURGERY PROCEDURE REMOVAL OF ANAL FISSURE 04/07/2022 CURRENT MEDICATIONS: famotidine (PEPCID) 20 mg tablet Take 2 tablets by mouth daily at bedtime. omeprazole (PRILOSEC) 40 mg capsule Take 1 capsule by mouth once daily. cholecalciferol, Vitamin D3, (VITAMIN D3) 1,250 mcg (50,000 unit) cap capsule Take 1 capsule by mouth one time a week. ferrous sulfate 325 mg (65 mg iron) tablet Take 1 tablet by mouth two times a day with meals. naproxen (NAPROSYN) 500 mg tablet Take 500 mg by mouth two times a day with meals. dupilumab (DUPIXENT PEN) 300 mg/2 mL pen injection Inject 300 mg subcutaneously every 2 weeks. ALLERGIES: ALLERGIES No Known Allergies FAMILY HISTORY: FAMILY HISTORY Family history unknown: Yes SOCIAL HISTORY: Social History Tobacco Use Smoking status: Every Day Current packs/day: 0.00 Types: Cigarettes Last attempt to quit: 05/2017 Years since quittin.4 Smokeless tobacco: Never Vaping Use Vaping status: Never Used Substance Use Topics Alcohol use: No Drug use: No REVIEW OF SYSTEMS Ten systems reviewed and negative except for those recorded in the HPI. VIDEO PHYSICAL EXAMINATION: (if done, performed via video enabled technology) GENERAL: alert and appropriate, in no distress, well-hydrated, well nourished, and happy, smiling, interactive Laboratory: Latest Ref Rng 08/22/2023 07/28/2024 08/02/2024 10/11/2024 WBC 3.70 - 11.00 k/uL 3.94 6.16 4.63 5.55 RBC 3.90 - 5.20 m/uL 4.53 4.29 4.54 4.58 Hemoglobin 11.5 - 15.5 g/dL 10.3 (L) 9.1 (L) 9.8 (L) 12.0 Hematocrit 36.0 - 46.0 % 34.2 (L) 31.8 (L) 34.0 (L) 38.3 MCV 80.0 - 100.0 fL 75.5 (L) 74.1 (L) 74.9 (L) 83.6 MCH 26.0 - 34.0 pg 22.7 (L) 21.2 (L) 21.6 (L) 26.2 MCHC 30.5 - 36.0 g/dL 30.1 (L) 28.6 (L) 28.8 (L) 31.3 RDW-CV 11.5 - 15.0 % 17.5 (H) 18.5 (H) 18.8 (H) 20.8 (H) Platelet Count 150 - 400 k/uL 274 293 296 246 MPV 9.0 - 12.7 fL 11.2 10.7 10.7 10.7 Neut% % 57.1 57.8 Abs Neut (ANC) 1.45 - 7.50 k/uL 2.64 3.20 Lymph% % 32.6 30.6 Abs Lymph 1.00 - 4.00 k/uL 1.51 1.70 Sanders% % 8.0 8.6 Abs Sanders <0.87 k/uL 0.37 0.48 Eosin% % 1.7 2.3 Abs Eosin <0.46 k/uL 0.08 0.13 Baso% % 0.4 0.5 Abs Baso <0.11 k/uL <0.03 0.03 Immature Gran % % 0.2 0.2 IMMATURE GRANS (ABS) <0.10 k/uL <0.03 <0.03 NRBC /100 WBC 0.0 0.0 Absolute nRBC <0.01 k/uL <0.01 <0.01 <0.01 <0.01 DTYPE Auto Auto Color Yellow Dark Yellow ! Clarity Clear Cloudy ! Glucose, Urine Negative 1+ ! Bilirubin, Urine Negative 1+ ! Ketones, Urine Negative Trace ! Specific [place], Ur 1.005 - 1.030 1.034 (H) Hemoglobin/Blood,Ur Negative Negative pH, Urine <8.5 6.0 Protein, Urine Negative Trace ! Urobilinogen 0.2-1.0 EU/dL 1.0 EU/dL Nitrites Negative Negative Leukest Negative Trace ! WBC, Urine 0-5 /HPF 0-5 /HPF RBC, Urine 0-2 /HPF 3-5 /HPF ! Bacteria uL Negative uL >9,821 (H) Epithelial Cells /HPF Moderate Hyaline Cast 0 /LPF 0 /LPF Protein, Total 6.3 - 8.0 g/dL 7.2 6.7 7.2 Albumin 3.9 - 4.9 g/dL 4.5 4.4 4.4 Calcium 8.5 - 10.2 mg/dL 8.9 9.5 9.2 Bilirubin, Total 0.2 - 1.3 mg/dL <0.2 (L) 0.2 0.2 Alkaline Phosphatase 34 - 123 U/L 73 81 80 AST 13 - 35 U/L 20 18 17 ALT 7 - 38 U/L 13 16 13 Glucose 74 - 99 mg/dL 102 (H) 112 (H) 85 BUN 7 - 21 mg/dL 12 12 9 Creatinine 0.58 - 0.96 mg/dL 0.76 0.97 (H) 0.70 Sodium 136 - 144 mmol/L 138 141 139 Potassium 3.7 - 5.1 mmol/L 4.2 4.7 4.5 Chloride 98 - 107 mmol/L 105 104 105 CO2 22 - 30 mmol/L 20 (L) 24 22 Anion Gap 8 - 15 mmol/L 13 13 12 eGFR >=60 mL/min/1.73m 105 78 115 Iron 41 - 186 ug/dL 13 (L) 27 (L) 28 (L) TIBC 232 - 386 ug/dL 368 358 320 Transferrin Saturation 15.0 - 57.0 % 3.5 (L) 7.5 (L) 8.8 (L) Retic % 0.4 - 2.0 % 2.1 (H) Abs Retic 0.018 - 0.100 M/uL 0.097 TSH 0.270 - 4.200 mIU/L 0.236 (L) 0.688 T3 79 - 165 ng/dL 91 Free T4 0.9 - 1.7 ng/dL 1.0 Ferritin 14.7 - 205.1 ng/mL 13.6 (L) 6.3 (L) 13.8 (L) Vitamin D 25 Hydroxy 31.0 - 80.0 ng/mL 12.6 (L) Vitamin B12 232 - 1,245 pg/mL 392 Vitamin B6, Plasma 20.0 - 125.0 nmol/L 35.8 Vitamin B1 (TDP), Whole Blood 84.3 - 213.3 nmol/L 159.2 Folate >4.7 ng/mL 10.0 Copper 80 - 155 ug/dL 119 LD 135 - 214 U/L 166 Haptoglobin 31 - 238 mg/dL 119 Assessment and Plan: 1. Iron deficiency anemia due to chronic blood loss - ICD9: 280.0, ICD10: D50.0 (primary diagnosis) Ganzoni deficit 928 mg - IV venofer x 4 doses order - Will repeat labs 6-8 weeks after last infusion - Needs to follow up with GI and [employer] patient aware - COMPLETE BLOOD COUNT AND DIFFERENTIAL - VITAMIN B12 - FOLATE, SERUM - IRON AND TIBC - FERRITIN - COMPREHENSIVE METABOLIC PANEL 2. Other vitamin B12 deficiency anemia - ICD9: 281.1, ICD10: D51.8 - Will continue oral B12 replacement - Will repeat B12 level to monitor for improvement - Recheck other levels in 3 months after infusions - Symptoms are continuing to improve - VITAMIN B12 - FOLATE, SERUM - CHEMO SCHEDULING - COMPLETE BLOOD COUNT AND DIFFERENTIAL - VITAMIN B12 - FOLATE, SERUM - IRON AND TIBC - FERRITIN - COMPREHENSIVE METABOLIC PANEL The patient's questions were answered to satisfaction. Total time of this visit, including time spent [id number] with the patient and/or via video/audio, and also in preparing for today's visit for medical decision making, documentation, and discussion with providers involved with the care of the patient was 30 minutes. Greater than 50% of total time was spent in counseling and/or coordination of care. Hill Mendoza APRN.[facility] Hematology Oncology & Blood Disorders 10/14/2024 documented in this encounter [facility] 08-26-2024 Note HNO ID: [id number] Author: JOHN GILES APRN.[facility] Service: ? Author Type: Nurse Practitioner Type: Progress Notes Filed: 08/26/2024 14:59 Note Text: This note was created using Ichibariter. Subjective Pati Mohamud is a 38 year old female. Patient here with complaint of bilateral heel pain x 3 months, left worse than right. Also has pain on sides of feet. Does stand on her feet a lot. No erythema/edema. Would start mid afternoon when she was getting off work, now hurts right when she gets up in the morning and steps on it. Nothing makes it feel better. No numbness/tingling. Wears comfortable shoes with support. No history of similar problems. Tried foot massager that doesn't help. GERD: still symptomatic, taking famotidine 40 mg BID. Has GI appointment in mid September. Started iron infusions, just had her 4th one, due for repeat labs in mid October. Still feeling tired. Continues to have heavy menstrual bleeding. Regular cycles, last about 5 days, heavy bleeding, not particularly painful. Declines flu and pneumonia vaccines today. The history is provided by the patient. Review of Systems Respiratory: Negative for shortness of breath. Cardiovascular: Negative for chest pain. Gastrointestinal: Positive for abdominal pain. Musculoskeletal: Positive for arthralgias and myalgias. Negative for joint swelling. Objective BP 121/84 Pulse 83 Wt 119 kg (262 lb 5.6 oz) LMP 08/13/2024 (Approximate) BMI 42.36 kg/m? Physical Exam Vitals and nursing note reviewed. Constitutional: Appearance: She is well-developed. She is obese. She is not ill-appearing. Cardiovascular: Pulses: Dorsalis pedis pulses are 2+ on the right side and 2+ on the left side. Posterior tibial pulses are 2+ on the right side and 2+ on the left side. Pulmonary: Effort: Pulmonary effort is normal. Musculoskeletal: Right ankle: Right Achilles Tendon: Normal. Left ankle: Left Achilles Tendon: Normal. Right foot: Normal range of motion. Tenderness present. No swelling or bony tenderness. Left foot: Normal range of motion. Tenderness present. No swelling or bony tenderness. Feet: Feet: Right foot: Skin integrity: Skin integrity normal. Left foot: Skin integrity: Skin integrity normal. Comments: Mild tenderness in this distribution Skin: General: Skin is warm and dry. Neurological: Mental Status: She is alert and oriented to person, place, and time. Gait: Gait normal. Psychiatric: Mood and Affect: Mood normal. Assessment and Plan 1. Foot pain, bilateral (Primary) Likely plantar fasciitis, recommend x-rays, supportive care, and follow-up with podiatry. - XR FOOT GENERAL 3V AP/LAT/OBL BILATERAL; Future - CONSULT TO PODIATRY; Future 2. Menorrhagia with regular cycle Encouraged to see CHOIR SINGER. - CONSULT TO GYNECOLOGY; Future 3. Gastroesophageal reflux disease without esophagitis Start omeprazole 40 mg in the am on an empty stomach and 40 mg of famotidine at bedtime. Keep GI appointment as scheduled. - famotidine (PEPCID) 20 mg tablet; Take 2 tablets by mouth daily at bedtime. - omeprazole (PRILOSEC) 40 mg capsule; Take 1 capsule by mouth once daily. Dispense: 30 capsule; Refill: 2 John Giles APRN.[facility] 08-26-2024 History of Present illness Narrative Images from the original note were not included. This note was created using Ichibariter. Subjective Pati Mohamud is a 38 year old female. Patient here with complaint of bilateral heel pain x 3 months, left worse than right. Also has pain on sides of feet. Does stand on her feet a lot. No erythema/edema. Would start mid afternoon when she was getting off work, now hurts right when she gets up in the morning and steps on it. Nothing makes it feel better. No numbness/tingling. Wears comfortable shoes with support. No history of similar problems. Tried foot massager that doesn't help. GERD: still symptomatic, taking famotidine 40 mg BID. Has GI appointment in mid September. Started iron infusions, just had her 4th one, due for repeat labs in mid October. Still feeling tired. Continues to have heavy menstrual bleeding. Regular cycles, last about 5 days, heavy bleeding, not particularly painful. Declines flu and pneumonia vaccines today. The history is provided by the patient. Review of Systems Respiratory: Negative for shortness of breath. Cardiovascular: Negative for chest pain. Gastrointestinal: Positive for abdominal pain. Musculoskeletal: Positive for arthralgias and myalgias. Negative for joint swelling. Objective BP 121/84 Pulse 83 Wt 119 kg (262 lb 5.6 oz) LMP 08/13/2024 (Approximate) BMI 42.36 kg/m Physical Exam Vitals and nursing note reviewed. Constitutional: Appearance: She is well-developed. She is obese. She is not ill-appearing. Cardiovascular: Pulses: Dorsalis pedis pulses are 2+ on the right side and 2+ on the left side. Posterior tibial pulses are 2+ on the right side and 2+ on the left side. Pulmonary: Effort: Pulmonary effort is normal. Musculoskeletal: Right ankle: Right Achilles Tendon: Normal. Left ankle: Left Achilles Tendon: Normal. Right foot: Normal range of motion. Tenderness present. No swelling or bony tenderness. Left foot: Normal range of motion. Tenderness present. No swelling or bony tenderness. Feet: Feet: Right foot: Skin integrity: Skin integrity normal. Left foot: Skin integrity: Skin integrity normal. Comments: Mild tenderness in this distribution Skin: General: Skin is warm and dry. Neurological: Mental Status: She is alert and oriented to person, place, and time. Gait: Gait normal. Psychiatric: Mood and Affect: Mood normal. Assessment and Plan 1. Foot pain, bilateral (Primary) Likely plantar fasciitis, recommend x-rays, supportive care, and follow-up with podiatry. - XR FOOT GENERAL 3V AP/LAT/OBL BILATERAL; Future - CONSULT TO PODIATRY; Future 2. Menorrhagia with regular cycle Encouraged to see CHOIR SINGER. - CONSULT TO GYNECOLOGY; Future 3. Gastroesophageal reflux disease without esophagitis Start omeprazole 40 mg in the am on an empty stomach and 40 mg of famotidine at bedtime. Keep GI appointment as scheduled. - famotidine (PEPCID) 20 mg tablet; Take 2 tablets by mouth daily at bedtime. - omeprazole (PRILOSEC) 40 mg capsule; Take 1 capsule by mouth once daily. Dispense: 30 capsule; Refill: 2 John Giles APRN.[facility] documented in this encounter [facility] 08-20-2024 Note HNO ID: [id number] Author: HILL FELIX RN Service: ? Author Type: Registered Nurse Type: Progress Notes Filed: 08/20/2024 14:24 Note Text: Iron sucrose 200mg injection infused over 20 minutes due to lightheadedness post treatment on 08/15; patient states understanding for longer infusion time. [facility] 08-20-2024 History of Present illness Narrative Iron sucrose 200mg injection infused over 20 minutes due to lightheadedness post treatment on 08/15; patient states understanding for longer infusion time. documented in this encounter [facility] 08-11-2024 Telephone encounter Note Patient has been scheduled to start iron on 08/13/24 @ 9:30 am, patient confirmed this date, time and location [facility] 08-11-2024 Miscellaneous Notes Patient has been scheduled to start iron on 08/13/24 @ 9:30 am, patient confirmed this date, time and location [facility] Patient is requesting to do her Iron Sucrose in [place]. Ref Hill Mendoza Please Advise Adrianna Amezquita documented in this encounter [facility] 08-08-2024 Telephone encounter Note Patient is requesting to do her Iron Sucrose in [place]. Ref Hill Mendoza Please Advise Adrianna Amezquita [facility] 08-01-2024 Note HNO ID: [id number] Author: HILL MENDOZA APRN.[facility] Service: ? Author Type: Nurse Practitioner Type: Progress Notes Filed: 08/01/2024 13:39 Note Text: Distance Health Visit [facility] VIRTUAL ANEMIA CONSULTATION NOTE Hematologic Oncology and Blood Disorders This visit is a Virtual MyChart video encounter which required patient-provider interaction for the medical decision making as documented below. Persons Present: patient Pati Mohamud has consented to this distance health encounter. I spent a total of 45 minutes on the date of the service which included preparing to see the patient, [id number] patient care, completing clinical documentation, obtaining and/or reviewing separately obtained history, performing a medically appropriate examination, counseling and educating the patient/family/caregiver, ordering medications, tests, or procedures, independently interpreting results (not separately reported), and communicating results to the patient/family/caregiver. I have communicated my name and active licensure. The patient's identity and physical location were verified at the time of this visit. Either the patient or their legal medical detail representative has been informed of the risks and benefits of -- and alternatives to -- treatment through a remote evaluation and consents to proceed with the evaluation remotely. Patient is currently in the [facility]? Yes PATIENT NAME: Pati Mohamud DATE OF SERVICE: August 01, 2024 CHIEF COMPLAINT: Anemia HISTORY OF THE PRESENT ILLNESS: The patient is referred to Hematology today by John Giles for further evaluation of anemia . The patient has a PMH of Anemia She reports that she used to have heavy menstrual cycles, but this has improved. Still changing every hour to two hours with ultra tampons. She reports that she has dealt with anemia for many years even previously requiring iron infusions when her 15 year old was about 1. She reports that she is not great with taking her vitamins, but she has previously taken oral iron replacement. She feels extremely run-down and has been dealing with a lot lately so she hasn't been able to be on top of this. She has not had recent GI or gynecologic evaluation. Her recent lab work show worsening microcytic anemia with a hemoglobin of 9.1 from 9.6. She endorses worsening exercise tolerance and severe fatigue. Symptoms/History Related to Anemia: Fatigue: Yes Pica: No SOB: Yes- with activity Chest Pain/Palpitations: Yes- having multiple episodes a day and feels it is associated with hiatal hernia Lightheadedness: Yes- intermittently 1-2x per week Dizziness: No Headache: Yes Brittle hair/nails: No Restless Legs: Yes Diet: No Bleeding: Yes- heavy menses Chills: Yes Difficulty concentrating/brain fog: Yes History of anemia: Yes Oral Iron History: Yes- but does not take consistently History Blood Transfusions: No History of Intravenous Iron infusions: Yes- with her previous Family History of Anemia/Blood Disorders: No- does not have a good family history Alcohol/Drug Use: Yes- current smoker, no alcohol History of Pregnancies: Yes 3 c-sections - Has had iron deficiency in the past Prior Hematology Consult in Past or Bone Marrow Biopsy: No History of Blood Donation: No Absorption Concerns/Gastric Surgery/Celiac Disease: No PAST MEDICAL HISTORY: PAST MEDICAL HISTORY Diagnosis Date Anemia Morbid obesity (HCC) PAST SURGICAL HISTORY: PAST SURGICAL HISTORY Procedure Laterality Date 48 HOUR PH STUDY 06/11/2013 mild acid reflux disease ANESTH, SECTION 2005, 2010twice CHOLECYSTECTOMY COLONOSCOPY 11/25/2012 normal EGD 10/08/2012 Schatzki's ringt, hiatal hernia, 2 small benign gastric polyps EMS PROCEDURE 06/11/2013 low LES pressures with normal relaxation response to a wet swallow with normal esophageal body motility HIATAL HERNIA REPAIR HX ORAL SURGERY PROCEDURE REMOVAL OF ANAL FISSURE 04/07/2022 CURRENT MEDICATIONS: cholecalciferol, Vitamin D3, (VITAMIN D3) 1,250 mcg (50,000 unit) cap capsule Take 1 capsule by mouth one time a week. ferrous sulfate 325 mg (65 mg iron) tablet Take 1 tablet by mouth two times a day with meals. penicillin V potassium 500 mg tablet Take 500 mg by mouth four times daily. naproxen (NAPROSYN) 500 mg tablet Take 500 mg by mouth two times a day with meals. Omeprazole 20 mg TbEC Take 1 tablet by mouth two times a day. dupilumab (DUPIXENT PEN) 300 mg/2 mL pen injection Inject 300 mg subcutaneously every 2 weeks. LORazepam (ATIVAN) 0.5 mg Take 1 mg by mouth once daily as needed. ALLERGIES: ALLERGIES No Known Allergies FAMILY HISTORY: FAMILY HISTORY Family history unknown: Yes SOCIAL HISTORY: Social History Tobacco Use Smoking status: Every Day Current packs/day: 0.00 Types: Cigarettes Last attempt to quit: 1 (more content not included)... [facility] 08-01-2024 History of Present illness Narrative Distance Health Visit [facility] VIRTUAL ANEMIA CONSULTATION NOTE Hematologic Oncology and Blood Disorders This visit is a Virtual MyChart video encounter which required patient-provider interaction for the medical decision making as documented below. Persons Present: patient Pati Mohamud has consented to this distance health encounter. I spent a total of 45 minutes on the date of the service which included preparing to see the patient, [id number] patient care, completing clinical documentation, obtaining and/or reviewing separately obtained history, performing a medically appropriate examination, counseling and educating the patient/family/caregiver, ordering medications, tests, or procedures, independently interpreting results (not separately reported), and communicating results to the patient/family/caregiver. I have communicated my name and active licensure. The patient's identity and physical location were verified at the time of this visit. Either the patient or their legal medical detail representative has been informed of the risks and benefits of -- and alternatives to -- treatment through a remote evaluation and consents to proceed with the evaluation remotely. Patient is currently in the [facility]? Yes PATIENT NAME: Pati Mohamud DATE OF SERVICE: August 01, 2024 CHIEF COMPLAINT: Anemia HISTORY OF THE PRESENT ILLNESS: The patient is referred to Hematology today by John Giles for further evaluation of anemia . The patient has a PMH of Anemia She reports that she used to have heavy menstrual cycles, but this has improved. Still changing every hour to two hours with ultra tampons. She reports that she has dealt with anemia for many years even previously requiring iron infusions when her 15 year old was about 1. She reports that she is not great with taking her vitamins, but she has previously taken oral iron replacement. She feels extremely run-down and has been dealing with a lot lately so she hasn't been able to be on top of this. She has not had recent GI or gynecologic evaluation. Her recent lab work show worsening microcytic anemia with a hemoglobin of 9.1 from 9.6. She endorses worsening exercise tolerance and severe fatigue. Symptoms/History Related to Anemia: Fatigue: Yes Pica: No SOB: Yes- with activity Chest Pain/Palpitations: Yes- having multiple episodes a day and feels it is associated with hiatal hernia Lightheadedness: Yes- intermittently 1-2x per week Dizziness: No Headache: Yes Brittle hair/nails: No Restless Legs: Yes Diet: No Bleeding: Yes- heavy menses Chills: Yes Difficulty concentrating/brain fog: Yes History of anemia: Yes Oral Iron History: Yes- but does not take consistently History Blood Transfusions: No History of Intravenous Iron infusions: Yes- with her previous Family History of Anemia/Blood Disorders: No- does not have a good family history Alcohol/Drug Use: Yes- current smoker, no alcohol History of Pregnancies: Yes 3 c-sections - Has had iron deficiency in the past Prior Hematology Consult in Past or Bone Marrow Biopsy: No History of Blood Donation: No Absorption Concerns/Gastric Surgery/Celiac Disease: No PAST MEDICAL HISTORY: PAST MEDICAL HISTORY Diagnosis Date Anemia Morbid obesity (HCC) PAST SURGICAL HISTORY: PAST SURGICAL HISTORY Procedure Laterality Date 48 HOUR PH STUDY 06/11/2013 mild acid reflux disease ANESTH, SECTION 2005, 2010twice CHOLECYSTECTOMY COLONOSCOPY 11/25/2012 normal EGD 10/08/2012 Schatzki's ringt, hiatal hernia, 2 small benign gastric polyps EMS PROCEDURE 06/11/2013 low LES pressures with normal relaxation response to a wet swallow with normal esophageal body motility HIATAL HERNIA REPAIR HX ORAL SURGERY PROCEDURE REMOVAL OF ANAL FISSURE 04/07/2022 CURRENT MEDICATIONS: cholecalciferol, Vitamin D3, (VITAMIN D3) 1,250 mcg (50,000 unit) cap capsule Take 1 capsule by mouth one time a week. ferrous sulfate 325 mg (65 mg iron) tablet Take 1 tablet by mouth two times a day with meals. penicillin V potassium 500 mg tablet Take 500 mg by mouth four times daily. naproxen (NAPROSYN) 500 mg tablet Take 500 mg by mouth two times a day with meals. Omeprazole 20 mg TbEC Take 1 tablet by mouth two times a day. dupilumab (DUPIXENT PEN) 300 mg/2 mL pen injection Inject 300 mg subcutaneously every 2 weeks. LORazepam (ATIVAN) 0.5 mg Take 1 mg by mouth once daily as needed. ALLERGIES: ALLERGIES No Known Allergies FAMILY HISTORY: FAMILY HISTORY Family history unknown: Yes SOCIAL HISTORY: Social History Tobacco Use Smoking status: Every Day Current packs/day: 0.00 Types: Cigarettes Last attempt to quit: 05/2017 Years since quittin.2 Smokeless tobacco: Never Vaping Use Vaping status: Never Used Substance Use Topics Alcohol use: No Drug use: No REVIEW OF SYSTEMS Ten systems reviewed and negative except for those recorded in the HPI. VIDEO PHYSICAL EXAMINATION: (if done, performed via video enabled technology) GENERAL: alert and appropriate, in no distress, well-hydrated, well nourished, appears tired, appears anxious, flat affect, and overweight Laboratory: Latest Ref Rng 09/15/2020 10/19/2020 02/13/2022 08/22/2023 07/28/2024 WBC 3.70 - 11.00 k/uL 6.19 6.32 6.58 3.94 6.16 RBC 3.90 - 5.20 m/uL 4.07 4.26 4.33 4.53 4.29 Hemoglobin 11.5 - 15.5 g/dL 9.6 (L) 9.7 (L) 9.9 (L) 10.3 (L) 9.1 (L) Hematocrit 36.0 - 46.0 % 32.9 (L) 34.6 (L) 31.7 (L) 34.2 (L) 31.8 (L) MCV 80.0 - 100.0 fL 80.8 81.2 73.2 (L) 75.5 (L) 74.1 (L) MCH 26.0 - 34.0 pg 23.6 (L) 22.8 (L) 22.9 (L) 22.7 (L) 21.2 (L) MCHC 30.5 - 36.0 g/dL 29.2 (L) 28.0 (L) 31.2 30.1 (L) 28.6 (L) RDW-CV 11.5 - 15.0 % 17.2 (H) 17.5 (H) 17.7 (H) 17.5 (H) 18.5 (H) Platelet Count 150 - 400 k/uL 275 315 276 274 293 MPV 9.0 - 12.7 fL 11.2 10.4 9.8 11.2 10.7 Neut% % 56.0 Abs Neut (ANC) 1.45 - 7.50 k/uL 3.69 Lymph% % 35.1 Abs Lymph 1.00 - 4.00 k/uL 2.31 Sanders% % 7.6 Abs Sanders <0.87 k/uL 0.50 Eosin% % 0.8 Abs Eosin <0.46 k/uL 0.05 Baso% % 0.5 Abs Baso <0.11 k/uL 0.03 DTYPE Auto Color Yellow Dark Yellow ! Clarity Clear Cloudy ! Glucose, Urine Negative 1+ ! Bilirubin, Urine Negative 1+ ! Ketones, Urine Negative Trace ! Specific [place], Ur 1.005 - 1.030 1.034 (H) Hemoglobin/Blood,Ur Negative Negative pH, Urine <8.5 6.0 Protein, Urine Negative Trace ! Urobilinogen 0.2-1.0 EU/dL 1.0 EU/dL Nitrites Negative Negative Leukest Negative Trace ! WBC, Urine 0-5 /HPF 0-5 /HPF RBC, Urine 0-2 /HPF 3-5 /HPF ! Bacteria uL Negative uL >9,821 (H) Epithelial Cells /HPF Moderate Hyaline Cast 0 /LPF 0 /LPF Protein, Total 6.3 - 8.0 g/dL 7.6 7.2 6.7 Albumin 3.9 - 4.9 g/dL 4.3 4.5 4.4 Calcium 8.5 - 10.2 mg/dL 9.0 8.9 9.5 Bilirubin, Total 0.2 - 1.3 mg/dL 0.4 <0.2 (L) 0.2 Alkaline Phosphatase 34 - 123 U/L 66 73 81 AST 13 - 35 U/L 9 (L) 20 18 ALT 7 - 38 U/L 23 13 16 Glucose 74 - 99 mg/dL 110 (H) 102 (H) 112 (H) BUN 7 - 21 mg/dL 17 12 12 Creatinine 0.58 - 0.96 mg/dL 0.77 0.76 0.97 (H) Sodium 136 - 144 mmol/L 139 138 141 Potassium 3.7 - 5.1 mmol/L 4.3 4.2 4.7 Chloride 98 - 107 mmol/L 105 105 104 CO2 22 - 30 mmol/L 24 20 (L) 24 Anion Gap 8 - 15 mmol/L 10 13 13 eGFR >=60 mL/min/1.73m 104 105 78 Absolute nRBC <0.01 k/uL <0.01 <0.01 <0.01 <0.01 Iron 41 - 186 ug/dL 26 (L) 16 (L) 13 (L) 27 (L) TIBC 232 - 386 ug/dL 373 377 368 358 Transferrin Saturation 15.0 - 57.0 % 7 (L) 4 (L) 3.5 (L) 7.5 (L) Ferritin 14.7 - 205.1 ng/mL 10.3 (L) 13.6 (L) 6.3 (L) TSH 0.270 - 4.200 mIU/L 0.236 (L) 0.688 Vitamin D 25 Hydroxy 31.0 - 80.0 ng/mL 8.0 (L) 12.6 (L) T3 79 - 165 ng/dL 91 Free T4 0.9 - 1.7 ng/dL 1.0 Assessment and Plan: 1. Iron deficiency anemia due to chronic blood loss - ICD9: 280.0, ICD10: D50.0 (primary diagnosis) - likely due to heavy menses and inadequate replacement in the past - Recommend GI evaluation as well - Will treat with IV iron Ganzoni deficit is 1583 mg - Venofer 200 mg x6 doses - Will recheck labs 6-8 weeks after last infusion - Checking all other nutritional studies - Will check retic and hemolysis labs - COMPLETE BLOOD COUNT AND DIFFERENTIAL - VITAMIN B12 - VITAMIN B6/PYRIDOXIN - VITAMIN B1 (THIAMINE), WHOLE BLOOD - FOLATE, SERUM - COPPER BLOOD - RETICULOCYTE COUNT - LACTATE DEHYDROGENASE - HAPTOGLOBIN - COMPREHENSIVE METABOLIC PANEL - IRON AND TIBC - FERRITIN - COMPLETE BLOOD COUNT AND DIFFERENTIAL - CHEMO SCHEDULING The patient's questions were answered to satisfaction. Hill Mendoza APRN.CNP [facility] Hematology Oncology & Blood Disorders 08/01/2024 12:54 PM CC: John Giles [address] [place] [address] [place] [id number] documented in this encounter [facility] 07-31-2024 Telephone encounter Note Message to patient, agreed. Will CB to schedule one month f/u. Does have an appt. with Hematology. [facility] 07-31-2024 Miscellaneous Notes Message to patient, agreed. Will CB to schedule one month f/u. Does have an appt. with Hematology. Left voicemail for patient to call back and receive a message from provider. Let patient know that her vitamin D level remains low and I would like her to resume the high dose supplement once weekly. Also, her anemia has worsened and iron counts are very low. Resume iron twice daily if tolerated, at least once daily. Being on the omeprazole is going to affect the absorption of the iron unfortunately but if it's maintaining her GERD symptoms, ok to continue for now. May be best to also see the casualty underwriter and consider iron infusions, I placed the referral to schedule with them. Schedule follow-up in the office in 1 month to re-evaluate and will be due for repeat blood count labs at that time. Other labs show normal thyroid function and blood sugar in the prediabetes range, will discuss more at next appointment. John Giles APRN.CAKE P[employer]CHER Requested Prescriptions Signed Prescriptions Disp Refills cholecalciferol, Vitamin D3, (VITAMIN D3) 1,250 mcg (50,000 unit) cap capsule 12 capsule 1 Sig: Take 1 capsule by mouth one time a week. Authorizing Provider: JOHN GILES ferrous sulfate 325 mg (65 mg iron) tablet 60 tablet 2 Sig: Take 1 tablet by mouth two times a day with meals. Authorizing Provider: JOHN GILES Pharmacy Information Pharmacy Address Telephone [facility]/pharmacy #[id number] [place] [id number] documented in this encounter [facility] 07-30-2024 Telephone encounter Note Left voicemail for patient to call back and receive a message from provider. [facility] 07-30-2024 Telephone encounter Note Let patient know that her vitamin D level remains low and I would like her to resume the high dose supplement once weekly. Also, her anemia has worsened and iron counts are very low. Resume iron twice daily if tolerated, at least once daily. Being on the omeprazole is going to affect the absorption of the iron unfortunately but if it's maintaining her GERD symptoms, ok to continue for now. May be best to also see the casualty underwriter and consider iron infusions, I placed the referral to schedule with them. Schedule follow-up in the office in 1 month to re-evaluate and will be due for repeat blood count labs at that time. Other labs show normal thyroid function and blood sugar in the prediabetes range, will discuss more at next appointment. John Giles APRN.CAKE P[employer]CHER Requested Prescriptions Signed Prescriptions Disp Refills cholecalciferol, Vitamin D3, (VITAMIN D3) 1,250 mcg (50,000 unit) cap capsule 12 capsule 1 Sig: Take 1 capsule by mouth one time a week. Authorizing Provider: JOHN GILES ferrous sulfate 325 mg (65 mg iron) tablet 60 tablet 2 Sig: Take 1 tablet by mouth two times a day with meals. Authorizing Provider: JOHN GILES Pharmacy Information Pharmacy Address Telephone [facility]/pharmacy #[id number] [address] [place] [address] [facility] 07-17-2024 Note HNO ID: [id number] Author: JOHN GILES APRN.CAKE PUNCHER Service: ? Author Type: Nurse Practitioner Type: Progress Notes Filed: 07/17/2024 14:33 Note Text: This note was created using Ichibariter. Subjective Pati Mohamud is a 38 year old female. Two weeks ago, tooth starting hurting, started on penicillin. This is a tooth that previously had root canal. Saw the dentist and was also given steroid and a few Tylenol 3. Patient to see dentist again today for follow-up, last dose of antibiotic yesterday. Prior to that, she was having GI symptoms like once per month and now daily. Feels like squeezing burning pain into epigastric pain and mid sternum. Taking 40 mg of omeprazole daily. Is having nausea and vomiting. Still smoking 1/2 PPD. Last saw this provider in August 2023 and was started on Protonix, patient doesn't remember if she took it or not. Also had abnormal labs at that time, not sure if she took the high dose vitamin D that was prescribed, had low TSH at that time with no repeat labs. Patient reports that she has been going through a divorce and under a lot of stress. The history is provided by the patient. Review of Systems HENT: Positive for dental problem. Respiratory: Positive for shortness of breath. Negative for cough and wheezing. Cardiovascular: Positive for chest pain. Gastrointestinal: Positive for abdominal pain, nausea and vomiting. PAST MEDICAL HISTORY Diagnosis Date Anemia Morbid obesity (HCC) PAST SURGICAL HISTORY Procedure Laterality Date 48 HOUR PH STUDY 06/11/2013 mild acid reflux disease ANESTH, SECTION 2005, 2010twice CHOLECYSTECTOMY COLONOSCOPY 11/25/2012 normal EGD 10/08/2012 Schatzki's ringt, hiatal hernia, 2 small benign gastric polyps EMS PROCEDURE 06/11/2013 low LES pressures with normal relaxation response to a wet swallow with normal esophageal body motility HIATAL HERNIA REPAIR HX ORAL SURGERY PROCEDURE REMOVAL OF ANAL FISSURE 04/07/2022 ALLERGIES Patient has no known allergies. MEDICATIONS penicillin V potassium 500 mg tablet Take 500 mg by mouth four times daily. naproxen (NAPROSYN) 500 mg tablet Take 500 mg by mouth two times a day with meals. Omeprazole 20 mg TbEC Take 1 tablet by mouth two times a day. metroNIDAZOLE (FLAGYL) 500 mg tablet Take 1 tablet by mouth two times a day for 7 days. nystatin (MYCOSTATIN) cream Apply to affected area two times a day for 14 days. dupilumab (DUPIXENT PEN) 300 mg/2 mL pen injection Inject 300 mg subcutaneously every 2 weeks. LORazepam (ATIVAN) 0.5 mg Take 1 mg by mouth once daily as needed. FAMILY HISTORY Family history unknown: Yes Social History Tobacco Use Smoking status: Every Day Current packs/day: 0.00 Types: Cigarettes Last attempt to quit: 05/2017 Years since quittin.1 Smokeless tobacco: Never Vaping Use Vaping status: Never Used Substance Use Topics Alcohol use: No Drug use: No Objective BP 125/81 Pulse 83 Ht 167.6 cm (5' 5.98) Wt 116 kg (255 lb 11.7 oz) LMP 07/30/2023 (Approximate) BMI 41.30 kg/m? Physical Exam Vitals and nursing note reviewed. Constitutional: Appearance: She is well-developed. She is obese. She is not ill-appearing. Cardiovascular: Rate and Rhythm: Normal rate and regular rhythm. Pulses: Normal pulses. Heart sounds: Normal heart sounds. Pulmonary: Effort: Pulmonary effort is normal. Breath sounds: Normal breath sounds. Abdominal: General: Bowel sounds are normal. There is no distension. Palpations: Abdomen is soft. Tenderness: There is abdominal tenderness in the epigastric area. Skin: General: Skin is warm and dry. Neurological: Mental Status: She is alert and oriented to person, place, and time. Assessment and Plan 1. Gastroesophageal reflux disease without esophagitis 2. Epigastric pain 3. Chest pain, unspecified type Chest and epigastric pain likely related to GERD, possibly aggravated by recent antibiotic and NSAID use. Continue omeprazole 40 mg on empty stomach in a.m., add on famotidine 40 mg QHS on empty stomach. Avoid food triggers, sit upright for several hours after eating, small frequent meals. Schedule with GI NANDO. Any severe worsening pain, go to ER. Recommend fasting labs and follow-up within 1 month. - CONSULT TO GASTROENTEROLOGY; Future - COMPREHENSIVE METABOLIC PANEL; Future - ECG COMPLETE 4. Low TSH level Due for repeat labs. - THYROID STIMULATING HORMONE; Future 5. Anemia, unspecified type Due for repeat. - COMPLETE BLOOD COUNT; Future - FERRITIN; Future - IRON AND TIBC; Future 6. Vitamin D deficiency Repeat. No current supplementation. - VITAMIN D 25 HYDROXY; Future 7. Screening for diabetes mellitus - HEMOGLOBIN A1C; Future 8. Screening for lipid disorders - LIPID PANEL BASIC; Future John Giles APRN.ARPIT [facility] 07-17-2024 History of Present illness Narrative This note was created using NoteWriter. Subjective Pati Mohamud is a 38 year old female. Two weeks ago, tooth starting hurting, started on penicillin. This is a tooth that previously had root canal. Saw the dentist and was also given steroid and a few Tylenol 3. Patient to see dentist again today for follow-up, last dose of antibiotic yesterday. Prior to that, she was having GI symptoms like once per month and now daily. Feels like squeezing burning pain into epigastric pain and mid sternum. Taking 40 mg of omeprazole daily. Is having nausea and vomiting. Still smoking 1/2 PPD. Last saw this provider in August 2023 and was started on Protonix, patient doesn't remember if she took it or not. Also had abnormal labs at that time, not sure if she took the high dose vitamin D that was prescribed, had low TSH at that time with no repeat labs. Patient reports that she has been going through a divorce and under a lot of stress. The history is provided by the patient. Review of Systems HENT: Positive for dental problem. Respiratory: Positive for shortness of breath. Negative for cough and wheezing. Cardiovascular: Positive for chest pain. Gastrointestinal: Positive for abdominal pain, nausea and vomiting. PAST MEDICAL HISTORY Diagnosis Date Anemia Morbid obesity (HCC) PAST SURGICAL HISTORY Procedure Laterality Date 48 HOUR PH STUDY 06/11/2013 mild acid reflux disease ANESTH, SECTION 2005, 2010twice CHOLECYSTECTOMY COLONOSCOPY 11/25/2012 normal EGD 10/08/2012 Schatzki's ringt, hiatal hernia, 2 small benign gastric polyps EMS PROCEDURE 06/11/2013 low LES pressures with normal relaxation response to a wet swallow with normal esophageal body motility HIATAL HERNIA REPAIR HX ORAL SURGERY PROCEDURE REMOVAL OF ANAL FISSURE 04/07/2022 ALLERGIES Patient has no known allergies. MEDICATIONS penicillin V potassium 500 mg tablet Take 500 mg by mouth four times daily. naproxen (NAPROSYN) 500 mg tablet Take 500 mg by mouth two times a day with meals. Omeprazole 20 mg TbEC Take 1 tablet by mouth two times a day. metroNIDAZOLE (FLAGYL) 500 mg tablet Take 1 tablet by mouth two times a day for 7 days. nystatin (MYCOSTATIN) cream Apply to affected area two times a day for 14 days. dupilumab (DUPIXENT PEN) 300 mg/2 mL pen injection Inject 300 mg subcutaneously every 2 weeks. LORazepam (ATIVAN) 0.5 mg Take 1 mg by mouth once daily as needed. FAMILY HISTORY Family history unknown: Yes Social History Tobacco Use Smoking status: Every Day Current packs/day: 0.00 Types: Cigarettes Last attempt to quit: 05/2017 Years since quittin.1 Smokeless tobacco: Never Vaping Use Vaping status: Never Used Substance Use Topics Alcohol use: No Drug use: No Objective BP 125/81 Pulse 83 Ht 167.6 cm (5' 5.98) Wt 116 kg (255 lb 11.7 oz) LMP 07/30/2023 (Approximate) BMI 41.30 kg/m Physical Exam Vitals and nursing note reviewed. Constitutional: Appearance: She is well-developed. She is obese. She is not ill-appearing. Cardiovascular: Rate and Rhythm: Normal rate and regular rhythm. Pulses: Normal pulses. Heart sounds: Normal heart sounds. Pulmonary: Effort: Pulmonary effort is normal. Breath sounds: Normal breath sounds. Abdominal: General: Bowel sounds are normal. There is no distension. Palpations: Abdomen is soft. Tenderness: There is abdominal tenderness in the epigastric area. Skin: General: Skin is warm and dry. Neurological: Mental Status: She is alert and oriented to person, place, and time. Assessment and Plan 1. Gastroesophageal reflux disease without esophagitis 2. Epigastric pain 3. Chest pain, unspecified type Chest and epigastric pain likely related to GERD, possibly aggravated by recent antibiotic and NSAID use. Continue omeprazole 40 mg on empty stomach in a.m., add on famotidine 40 mg QHS on empty stomach. Avoid food triggers, sit upright for several hours after eating, small frequent meals. Schedule with GI NANDO. Any severe worsening pain, go to ER. Recommend fasting labs and follow-up within 1 month. - CONSULT TO GASTROENTEROLOGY; Future - COMPREHENSIVE METABOLIC PANEL; Future - ECG COMPLETE 4. Low TSH level Due for repeat labs. - THYROID STIMULATING HORMONE; Future 5. Anemia, unspecified type Due for repeat. - COMPLETE BLOOD COUNT; Future - FERRITIN; Future - IRON AND TIBC; Future 6. Vitamin D deficiency Repeat. No current supplementation. - VITAMIN D 25 HYDROXY; Future 7. Screening for diabetes mellitus - HEMOGLOBIN A1C; Future 8. Screening for lipid disorders - LIPID PANEL BASIC; Future John Giles APRN.CAKE P[employer]CHER documented in this encounter [facility] 07-15-2024 Telephone encounter Note Patient notified.Rehana Lazaro LPN [facility] 07-15-2024 Miscellaneous Notes Patient notified.Rehana Lazaro LPN Vaginal swab positive for bacterial vaginosis. Prescription for Flagyl sent to the pharmacy. Negative for yeast and trichomonas. documented in this encounter [facility] 07-15-2024 Telephone encounter Note Vaginal swab positive for bacterial vaginosis. Prescription for Flagyl sent to the pharmacy. Negative for yeast and trichomonas. [facility] 07-14-2024 Note HNO ID: [id number] Author: JIMENEZ OLIVAREZ APRN.CAKE PUNCHER Service: ? Author Type: Nurse Practitioner Type: Progress Notes Filed: 07/14/2024 08:52 Note Text: CC: Patient presents with: Vaginal Problem: itching and burning, on pcn for 2 weeks for dental issues HPI Pati Mohamud is a 38 year old female who presents with complaint of possible UTI. These symptoms have been present for few days. Associated symptoms: burning and vaginal itching Denies: fever, chills, sweats, abdominal pain, and flank pain Treatments: nothing The ROS was otherwise negative. PMH, Medications, labs, allergies, and recent past visits with PCP were reviewed and updated as able. PHYSICAL EXAM: BP 126/80 Pulse 94 Temp 36.7 ?C (98.1 ?F) Resp 16 Wt 117.7 kg (259 lb 7.7 oz) LMP 07/30/2023 (Approximate) SpO2 97% BMI 41.90 kg/m? General: Well appearing and alert CV: Regular rate and rhythm without obvious murmur Lungs: clear to auscultation bilaterally Back: straight and symmetric Abdomen: mild tenderness on lower abdoman PAST MEDICAL HISTORY Diagnosis Date Anemia Morbid obesity (HCC) PAST SURGICAL HISTORY Procedure Laterality Date 48 HOUR PH STUDY 06/11/2013 mild acid reflux disease ANESTH, SECTION 2005, 2010twice CHOLECYSTECTOMY COLONOSCOPY 11/25/2012 normal EGD 10/08/2012 Schatzki's ringt, hiatal hernia, 2 small benign gastric polyps EMS PROCEDURE 06/11/2013 low LES pressures with normal relaxation response to a wet swallow with normal esophageal body motility HIATAL HERNIA REPAIR HX ORAL SURGERY PROCEDURE REMOVAL OF ANAL FISSURE 04/07/2022 ALLERGIES Patient has no known allergies. MEDICATIONS dupilumab (DUPIXENT PEN) 300 mg/2 mL pen injection Inject 300 mg subcutaneously every 2 weeks. LORazepam (ATIVAN) 0.5 mg Take 1 mg by mouth once daily as needed. nystatin (MYCOSTATIN) cream Apply to affected area two times a day for 14 days. fluconazole (DIFLUCAN) 150 mg tablet Take 1 tablet by mouth once daily for 1 day. ergocalciferol 50,000 unit capsule (VITAMIN D2, DRISDOL) Take 1 capsule by mouth one time a week. (Patient not taking: Reported on 07/14/2024) pantoprazole DR (PROTONIX) 20 mg tablet Take 1 tablet by mouth daily before breakfast. Take on empty stomach, 1/2 hr before meal. (Patient not taking: Reported on 07/14/2024) benzonatate (TESSALON PERLE) 100 mg capsule Take 1 capsule by mouth three times a day as needed. (Patient not taking: Reported on 07/14/2024) albuterol HFA (PROVENTIL HFA, VENTOLIN HFA) 90 mcg/actuation inhaler Inhale 2 Puffs as instructed every 4 hours as needed for wheezing/shortness of breath. (Patient not taking: Reported on 07/14/2024) FAMILY HISTORY Family history unknown: Yes Social History Tobacco Use Smoking status: Every Day Current packs/day: 0.00 Types: Cigarettes Last attempt to quit: 05/2017 Years since quittin.1 Smokeless tobacco: Never Vaping Use Vaping status: Never Used Substance Use Topics Alcohol use: No Drug use: No ASSESSMENT/PLAN: 1. Vaginal itching - ICD9: 698.1, ICD10: N89.8 - UA DIP, URINE (POC) - URINE CULTURE - EZE/TRICHOMONAS NAAT - BACTERIAL VAGINOSIS NAAT - NYSTATIN 100,000 UNIT/GRAM TOPICAL CREAM - FLUCONAZOLE 150 MG TABLET Self swabbed Prescription instructions reviewed with patient as applicable. Potential red flag symptoms discussed with the patient. Reviewed appropriate action plan to take if red flag symptoms occur. Patient agreeable to treatment plan. Also said that her hiatal hernia seems to be acting up several times a day now instead of once a month. Told her to follow up with PCP for this issue. Jimenez Olivarez APRN.[facility] 07-14-2024 History of Present illness Narrative CC: Patient presents with: Vaginal Problem: itching and burning, on pcn for 2 weeks for dental issues HPI Pati Mohamud is a 38 year old female who presents with complaint of possible UTI. These symptoms have been present for few days. Associated symptoms: burning and vaginal itching Denies: fever, chills, sweats, abdominal pain, and flank pain Treatments: nothing The ROS was otherwise negative. PMH, Medications, labs, allergies, and recent past visits with PCP were reviewed and updated as able. PHYSICAL EXAM: BP 126/80 Pulse 94 Temp 36.7 C (98.1 F) Resp 16 Wt 117.7 kg (259 lb 7.7 oz) LMP 07/30/2023 (Approximate) SpO2 97% BMI 41.90 kg/m General: Well appearing and alert CV: Regular rate and rhythm without obvious murmur Lungs: clear to auscultation bilaterally Back: straight and symmetric Abdomen: mild tenderness on lower abdoman PAST MEDICAL HISTORY Diagnosis Date Anemia Morbid obesity (HCC) PAST SURGICAL HISTORY Procedure Laterality Date 48 HOUR PH STUDY 06/11/2013 mild acid reflux disease ANESTH, SECTION 2005, 2010twice CHOLECYSTECTOMY COLONOSCOPY 11/25/2012 normal EGD 10/08/2012 Schatzki's ringt, hiatal hernia, 2 small benign gastric polyps EMS PROCEDURE 06/11/2013 low LES pressures with normal relaxation response to a wet swallow with normal esophageal body motility HIATAL HERNIA REPAIR HX ORAL SURGERY PROCEDURE REMOVAL OF ANAL FISSURE 04/07/2022 ALLERGIES Patient has no known allergies. MEDICATIONS dupilumab (DUPIXENT PEN) 300 mg/2 mL pen injection Inject 300 mg subcutaneously every 2 weeks. LORazepam (ATIVAN) 0.5 mg Take 1 mg by mouth once daily as needed. nystatin (MYCOSTATIN) cream Apply to affected area two times a day for 14 days. fluconazole (DIFLUCAN) 150 mg tablet Take 1 tablet by mouth once daily for 1 day. ergocalciferol 50,000 unit capsule (VITAMIN D2, DRISDOL) Take 1 capsule by mouth one time a week. (Patient not taking: Reported on 07/14/2024) pantoprazole DR (PROTONIX) 20 mg tablet Take 1 tablet by mouth daily before breakfast. Take on empty stomach, 1/2 hr before meal. (Patient not taking: Reported on 07/14/2024) benzonatate (TESSALON PERLE) 100 mg capsule Take 1 capsule by mouth three times a day as needed. (Patient not taking: Reported on 07/14/2024) albuterol HFA (PROVENTIL HFA, VENTOLIN HFA) 90 mcg/actuation inhaler Inhale 2 Puffs as instructed every 4 hours as needed for wheezing/shortness of breath. (Patient not taking: Reported on 07/14/2024) FAMILY HISTORY Family history unknown: Yes Social History Tobacco Use Smoking status: Every Day Current packs/day: 0.00 Types: Cigarettes Last attempt to quit: 05/2017 Years since quittin.1 Smokeless tobacco: Never Vaping Use Vaping status: Never Used Substance Use Topics Alcohol use: No Drug use: No ASSESSMENT/PLAN: 1. Vaginal itching - ICD9: 698.1, ICD10: N89.8 - UA DIP, URINE (POC) - URINE CULTURE - EZE/TRICHOMONAS NAAT - BACTERIAL VAGINOSIS NAAT - NYSTATIN 100,000 UNIT/GRAM TOPICAL CREAM - FLUCONAZOLE 150 MG TABLET Self swabbed Prescription instructions reviewed with patient as applicable. Potential red flag symptoms discussed with the patient. Reviewed appropriate action plan to take if red flag symptoms occur. Patient agreeable to treatment plan. Also said that her hiatal hernia seems to be acting up several times a day now instead of once a month. Told her to follow up with PCP for this issue. Jimenez Olivarez APRN.ARPIT documented in this encounter [facility] 07-07-2024 Telephone encounter Note Received ed visit summary from [facility]. Placed in provider's inbox for review. Route to MA scanning [facility] 07-07-2024 Miscellaneous Notes Received ed visit summary from [facility]. Placed in provider's inbox for review. Route to MA scanning documented in this encounter [facility] 12-27-2023 Telephone encounter Note Received ED visit summary and labs for chest pain from [facility]. Placed in provider's inbox for review. Route to MA scanning [facility] 12-27-2023 Miscellaneous Notes Received ED visit summary and labs for chest pain from [facility]. Placed in provider's inbox for review. Route to MA scanning documented in this encounter [facility] 08-27-2023 Miscellaneous Notes Patient verbalized understanding. Let patient know that I heard back from the egg candler who recommended repeating the thyroid labs in 1 month, including a couple additional labs that were not done this time. Future orders placed, non-fasting. If the labs have normalized, no further workup needed. If anything is abnormal in 1 month, I will refer her to endocrinology for further evaluation. John Sanchez APRN.CNP documented in this encounter [facility] 08-27-2023 History of Present illness Narrative PULM FUNCTION SMARTBLOCK: Provider: John Sanchez APRN.CNP Assisting Tech: Susan Roman RPFT Spirometry w/BD: 1 documented in this encounter [facility] 08-24-2023 History of Present illness Narrative Thank you for requesting an Endocrinology E-Consult for your 37 year old female patient, Pati Mohamud for evaluation/treatment of Thyroid . Your clinical question: new onset low TSH with normal free T4 and T3. How should I proceed with further evaluation or send for formal Endo consult? Relevant labs: Component Latest Ref Rng & Units 08/22/2023 TSH 0.270 - 4.200 mIU/L 0.236 (L) T3 79 - 165 ng/dL 91 Free T4 0.9 - 1.7 ng/dL 1.0 Comments and recommendations: The relevance of mildly elevated TSH is difficult to ascertain at this point. Possible causes could be either transient or it could be the start of a more significant issue. Examples are: Transient low TSH because of stress or a medication use such as steroids. Lab error/biotin interference Prior thyroiditis, recovering with possible progression to hypothyroidism Early hyperthyroidism of Graves disease. Toxic thyroid nodule(s) I suggest repeat labs in 1 month along with obtaining thyroid peroxidase AB and TSI If she has a palpable goiter, obtain thyroid ultrasound. Consider a formal endocrine consult if one or some of the follow up evaluations is/are abnormal. Time: 7 minutes. Please don't hesitate to contact us if you have further questions. Sincerely, Efren Gomez MD, [place] documented in this encounter [facility] 08-23-2023 Miscellaneous Notes Reason for Disposition [1] Other NON-URGENT information for PCP AND [2] does not require PCP response Answer Assessment - Initial Assessment Questions Spoke with pt, reviewed message/results from provider. Pt verbalized understanding. Also sent pt a copy of provider's message to her MyChart so she can refer to the instructions if needed. Pt denies any concerns or questions at this time. Protocols used: PCP Call - No [id number] Please discuss the following with patient regarding her lab results: Her vitamin D level was very low. I'd like her to take a high dose prescription vitamin D once weekly for 12 weeks, then start OTC Vitamin D3 1000 international units daily thereafter. I sent this to her pharmacy Her iron was also low, I'd like her to start taking OTC iron 325 mg tablet twice daily if she can tolerate, otherwise at least once daily. May cause constipation and darker stools. Best absorbed on an empty stomach and with some fruit juice. Her thyroid level was also low, I'm reaching out to the egg candler on how to proceed with that and will let her know what they say. The urine dip showed no further blood. Go ahead and complete the antibiotic Bactrim that was prescribed by the [facility] care and increase water intake. John Sanchez APRN.CNP documented in this encounter [facility] 08-23-2023 Miscellaneous Notes Called lab client services, medical detail representative [employer]. All requested add ons are able to be added on, and will be processing shortly. Can you see if the lab can add on the following: iron and TIBC, ferritin, free T4 and T3? If they can't do them all, priority is free T4 and T3. John Sanchez APRN.CNP documented in this encounter [facility] 08-22-2023 History of Present illness Narrative This note was created using Ichibadavidter. Subjective Pati Mohamud is a 37 year old female. Patient here for follow-up from recent [facility] care visit on 08/20, tested positive for influenza. She was also having bilateral flank pain at that time, and UA was positive for trace blood and protein. Back pain has persisted since that time, bilateral mid and upper. Has tried Tylenol/ibuprofen with little relief. Has had a fever as recent as this morning. Persistent cough x 4 months. Didn't like Flonase, caused nasal burning. Takes oral antihistamine PRN. Never been tested for allergies. Seems to be allergic to cats. Started smoking in 2018 for about 9 months, stopped with , then started again about a year and a half ago. Smokes 1/2 PPD. Endorses chronic fatigue. History of anemia and iron infusions. Not currently taking any oral iron or other vitamins/supplements OTC. Does have acid reflux, takes OTC famotidine 1-2x/day with persistent symptoms. Has tried PPI's in the past but wasn't helpful. History of hiatal hernia. Does not have a gallbladder. Never had EGD. No lower GI symptoms. The history is provided by the patient. Review of Systems Constitutional: Positive for activity change, appetite change, fatigue and fever. HENT: Positive for congestion. Negative for ear pain, sneezing and sore throat. Eyes: Negative for itching. Respiratory: Positive for cough. Negative for chest tightness, shortness of breath and wheezing. Cardiovascular: Negative for chest pain. Gastrointestinal: Negative for abdominal pain. Genitourinary: Positive for flank pain. Negative for difficulty urinating, dysuria, frequency, hematuria and urgency. Musculoskeletal: Positive for back pain. Allergic/Immunologic: Negative for immunocompromised state. Psychiatric/Behavioral: Positive for sleep disturbance. Negative for dysphoric mood. The patient is not nervous/anxious. PAST MEDICAL HISTORY Diagnosis Date Anemia Morbid obesity (HCC) PAST SURGICAL HISTORY Procedure Laterality Date ANESTH, SECTION 2005, 2010twice CHOLECYSTECTOMY HIATAL HERNIA REPAIR HX ORAL SURGERY PROCEDURE ALLERGIES Patient has no known allergies. MEDICATIONS dupilumab (DUPIXENT PEN) 300 mg/2 mL pen injection Inject 300 mg subcutaneously every 2 weeks. sulfamethoxazole-trimethoprim (BACTRIM DS) 800-160 mg per tablet Take 1 tablet by mouth every 12 hours for 7 days. benzonatate (TESSALON PERLE) 100 mg capsule Take 1 capsule by mouth three times a day as needed. predniSONE (DELTASONE) 20 mg tablet Take 2 tablets by mouth once daily for 5 days. albuterol HFA (PROVENTIL HFA, VENTOLIN HFA) 90 mcg/actuation inhaler Inhale 2 Puffs as instructed every 4 hours as needed for wheezing/shortness of breath. LORazepam (ATIVAN) 0.5 mg Take 1 mg by mouth once daily as needed. pantoprazole DR (PROTONIX) 20 mg tablet Take 1 tablet by mouth daily before breakfast. Take on empty stomach, 1/2 hr before meal. FAMILY HISTORY Family history unknown: Yes Social History Tobacco Use Smoking status: Every Day Packs/day: .5 Types: Cigarettes Last attempt to quit: 05/2017 Years since quittin.2 Smokeless tobacco: Never Vaping Use Vaping Use: Never used Substance Use Topics Alcohol use: No Drug use: No Objective BP 107/61 Pulse 91 Wt 108.4 kg (238 lb 15.7 oz) LMP 07/30/2023 (Approximate) BMI 39.77 kg/m Physical Exam Vitals and nursing note reviewed. Constitutional: Appearance: She is well-developed. She is obese. She is not ill-appearing. Cardiovascular: Rate and Rhythm: Normal rate and regular rhythm. Heart sounds: Normal heart sounds. Pulmonary: Effort: Pulmonary effort is normal. Breath sounds: Normal breath sounds. Abdominal: General: Abdomen is protuberant. Bowel sounds are normal. Palpations: Abdomen is soft. Tenderness: There is no abdominal tenderness. Musculoskeletal: Cervical back: No tenderness or bony tenderness. Thoracic back: Tenderness present. No bony tenderness. Lumbar back: Tenderness present. No bony tenderness. Comments: Diffuse tenderness to mid and upper back, mild to right lumbar area Skin: General: Skin is warm and dry. Neurological: Mental Status: She is alert and oriented to person, place, and time. Gait: Gait normal. Psychiatric: Mood and Affect: Affect is flat. Assessment and Plan 1. Persistent cough for 3 weeks or longer Discussed possible allergies, asthma, or related to GERD. Recommend daily oral antihistamine, spirometry test, new medication for GERD and follow-up with GI. - SPIROMETRY - BASELINE AND POST DILATOR; Future 2. Chronic nasal congestion Take oral antihistamine daily. 3. Gastroesophageal reflux disease without esophagitis Trial Protonix, schedule with GI, likely needs EGD. - CONSULT TO GASTROENTEROLOGY; Future - pantoprazole DR (PROTONIX) 20 mg tablet; Take 1 tablet by mouth daily before breakfast. Take on empty stomach, 1/2 hr before meal. Dispense: 30 tablet; Refill: 2 4. Microscopic hematuria Repeat urine today with lab. - URINALYSIS, WITH MICROSCOPIC 5. Fatigue, unspecified type Labs today, may consider sleep study if normal. - CBC - COMP METABOLIC PANEL - TSH BLD - VITAMIN D 25 HYDROXY 6. History of anemia Repeat labs today. 7. Continuous tobacco abuse Encouraged cessation. 8. Acute bilateral back pain, unspecified back location Likely related to current influenza infection. Continue supportive care, rest, fluids, analgesics, stretching. Follow up with PCP for new/worsening/persistent symptoms. John Sanchez APRN.CAKE [employer]CHER documented in this encounter [facility] 08-20-2023 Instructions Jennifer Grey PA-C - 08/20/2023 1:11 PM EST ASSESSMENT/PLAN: 1. Urinary symptom or sign 2. Bilateral flank pain - Microscopic hematuria only - URINE CULTURE - UA DIP, URINE (POC) - SULFAMETHOXAZOLE 800 MG-TRIMETHOPRIM 160 MG TABLET ER if flank pain worsening/persistin- cannot fully work up something like a kidney stone. 3. Persistent cough for 3 weeks or longer X 2-3 months Not worse- just persistent - COVID & INFLUENZA A/B & RSV NAAT, ROUTINE - TESSALON - PREDNISONE - Do a daily Zyrtec or Claritin to try and dry up post nasal 4. Viral syndrome New fever, body aches, ARMENDARIZ , and sick symptoms x 24 hours (09/08/23) Other family members have same symptoms now too - COVID & INFLUENZA A/B & RSV NAAT, ROUTINE Encourage fluids, rest. Zyrtec Tylenol and Motrin for pain and fever Saline Nasil spray, Neti Pot, vaporizer, Vicks. Try Cepocol lozenges or Chloraseptic throat spray. Warm salt water gargles. Cough and deep breath- 10x/hr while awake. Call PCP if sx worsen or no better. If symptoms worsen, or new symptoms develop go to ER. If you have worsening of breathing or breathing changes- go to ER. If you have persistent fever unrelieved by Tylenol/Motrin- go to the ER. Follow up as needed. Barriers to learning: none. The patient verbalizes understanding and is in agreement with plan of care. This patient encounter involved the screening or treatment of novel coronavirus infection (COVID-19). - Red flags for in person care discussed - All questions answered Jennifer Grey PA-C documented in this encounter [facility] 08-20-2023 History of Present illness Narrative Images from the original note were not included. Surgical mask, face shield, N95, and gloves worn for all in-person care. 08/20/2023 Patient presents with: UTI URI SUBJECTIVE: This is a 37 year old that is here today for concern for multiple complaints. The patient complains of new fever, body aches, HAs, fatigue sinus congestion/pressure/drainage x 1 day (08/19/23). Body aches are in the bilateral neck and thoracic back and bilateral legs are aching x 1 day. No numbness, tingling, weakness, or difficulties walking. Patient denies wheezing, shortness of breath, increased WOB, or chest pain. He family has the same symptoms. She has a cough but states she has had a cough for 2-3 months. 2. Concern for UTI. Complains of feeling like she needs to urinate and then noting comes out, and feeling like urine is leaking when she coughs. Denies overt dysuria, urinary urgency, and urinary frequency. Has bilateral thoracic back pain - right flank greater than left. No h/o kidney stones. Denies abdominal pain, lower abdominal pressure, bladder spasms, or n/v. Denies any discharge, lesions, odor, change in sexual partners, or concern for STIs. 3. Concerned for persisting cough x 2-3 months. CXR on 07/04- negative States OTC cough medicine do not help. She does not like nasal sprays. She states Albuterol did not help. Cough is NOT worse- just not going away. Dysuria pain: - out of 10 with 10 being the worst pain. The lower abdominal pain is - out of 10 with 10 being the worst pain. The back/flank pain is yes out of 10 with 10 being the worst pain. PAST MEDICAL HISTORY Diagnosis Date Anemia Morbid obesity (HCC) ALLERGIES Patient has no known allergies. MEDICATIONS Current Outpatient Medications Medication Sig fluticasone (FLONASE ALLERGY RELIEF) 50 mcg/actuation nasal spray Use 1 [place] in each nostril two times a day. albuterol HFA (PROVENTIL HFA, VENTOLIN HFA) 90 mcg/actuation inhaler Inhale 2 Puffs as instructed every 4 hours as needed for wheezing/shortness of breath. LORazepam (ATIVAN) 0.5 mg Take by mouth once daily as needed. ADBRY 150 mg/mL injection as directed. gabapentin (NEURONTIN) 300 mg capsule Take 1 capsule by mouth daily at bedtime for 30 days. omeprazole magnesium (PRILOSEC ORAL) Take by mouth. No current facility-administered medications for this visit. Medications and allergies reviewed by this provider. SOCIAL HISTORY Social History Tobacco Use Smoking status: Former Types: Cigarettes Quit date: 05/2017 Years since quittin.2 Smokeless tobacco: Never Tobacco comments: smoked for 3 months Vaping Use Vaping Use: Never used Substance Use Topics Alcohol use: No Drug use: No REVIEW OF SYSTEMS Review of Systems ROS: constitutional: neg, HENT- sinus symptoms, Eyes- neg, heart-neg, respiratory- Cough, GI-neg, - concern for UTI, skin-neg, Allergy- neg, lymph-neg, neuro-neg, psych-neg- All systems neg except as noted above in HPI. OBJECTIVE: Pulse 91 Temp 36.8 C (98.2 F) Resp 16 Wt 108.7 kg (239 lb 8.5 oz) LMP 10/30/2022 (Approximate) SpO2 100% BMI 39.86 kg/m . Vital signs reviewed by this provider. Physical Exam Vitals reviewed. Constitutional: General: She is not in acute distress. Appearance: Normal appearance. She is well-developed and normal weight. She is not ill-appearing, toxic-appearing or diaphoretic. HENT: Head: Normocephalic and atraumatic. No right periorbital erythema or left periorbital erythema. Salivary Glands: Right salivary gland is not diffusely enlarged or tender. Left salivary gland is not diffusely enlarged or tender. Right Ear: Tympanic membrane, ear canal and external ear normal. Left Ear: Tympanic membrane, ear canal and external ear normal. Nose: Rhinorrhea present. No congestion. Rhinorrhea is clear. Right Sinus: No maxillary sinus tenderness or frontal sinus tenderness. Left Sinus: No maxillary sinus tenderness or frontal sinus tenderness. Mouth/Throat: Lips: [place]. No lesions. Mouth: Mucous membranes are moist. No oral lesions. Dentition: No gum lesions. Tongue: No lesions. Tongue does not deviate from midline. Palate: No mass and lesions. Pharynx: Oropharynx is clear. No pharyngeal swelling, oropharyngeal exudate, posterior oropharyngeal erythema or uvula swelling. Tonsils: No tonsillar exudate or tonsillar abscesses. Eyes: General: Lids are normal. No scleral icterus. Right eye: No discharge. Left eye: No discharge. Extraocular Movements: Extraocular movements intact. Conjunctiva/sclera: Conjunctivae normal. Pupils: Pupils are equal, round, and reactive to light. Pupils are equal. Cardiovascular: Rate and Rhythm: Normal rate and regular rhythm. Heart sounds: Normal heart sounds. Pulmonary: Effort: Pulmonary effort is normal. Breath sounds: Normal breath sounds and air entry. Abdominal: General: Abdomen is flat. Bowel sounds are normal. Palpations: Abdomen is soft. Tenderness: There is no abdominal tenderness. There is right CVA tenderness and left CVA tenderness. There is no guarding or rebound. Comments: Greater right flank TTP compared to left Musculoskeletal: Cervical back: Normal and full passive range of motion without pain. No spinous process tenderness or muscular tenderness. Thoracic back: Normal. Lumbar back: Normal. Back: Comments: BACK: Full ROM noted with flexion, extension, side to side movement and backward motion with no hesitancy. No loss of control or bowel or bladder. Patient was able to change positions readily without assistance, hesitancy, delay or with overt signs of discomfort. Bilateral leg lifts are negative for radiculopathy. EXTREMITIES: No edema, DP pulses 2+ bilaterally NEURO: Strength 5/5 bilateral and symmetric lower extremities, reflexes 2/2 bilateral and symmetric , sensation intact Gait normal. Able to ambulate without evidence of a foot drop or ataxic gait. Able to ambulate on toes and heels. Normal flexion, dorsiflexion, abduction and adduction. Lymphadenopathy: Head: Right side of head: No submental, submandibular, tonsillar, preauricular or posterior auricular adenopathy. Left side of head: No submental, submandibular, tonsillar, preauricular or posterior auricular adenopathy. Cervical: No cervical adenopathy. Skin: General: Skin is warm. Capillary Refill: Capillary refill takes less than 2 seconds. Findings: No rash. Neurological: General: No focal deficit present. Mental Status: She is alert and oriented to person, place, and time. Cranial Nerves: No facial asymmetry. Sensory: Sensation is intact. Gait: Gait is intact. Psychiatric: Attention and Perception: Attention normal. Behavior: Behavior is cooperative. Component Latest Ref Rng & Units 08/20/2023 GLUCOSE UA (POCT) Negative mg/dL Negative BILIRUBIN UA (POCT) Negative Negative KETONE UA (POCT) Negative mg/dL Trace SPECIFIC GRAVITY UA (POCT) 1.005 - 1.030 >=1.030 HEMOGLOBIN/BLOOD UA (POCT) Negative Trace-intact (A) PH UA (POCT) 4.5 - 8.0 6.0 PROTEIN UA (POCT) Negative mg/dL Trace (A) UROBILINOGEN UA (POCT) Normal E.U./dL 0.2 NITRITE UA (POCT) Negative Negative LEUKOCYTES UA (POCT) Negative Negative COLOR UA (POCT) Yellow CLARITY UA (POCT) Clear Pati Mohamud - Meets symptom-based criteria for testing and is low risk. - Discussed symptom monitoring and supportive care - Red flag symptoms requiring follow up discussed ASSESSMENT/PLAN: 1. Urinary symptom or sign - ICD9: 788.99, ICD10: R39.9 (primary diagnosis) 2. Bilateral flank pain - ICD9: 789.09, ICD10: R10.9 Microscopic hematuria only - URINE CULTURE - UA DIP, URINE (POC) - SULFAMETHOXAZOLE 800 MG-TRIMETHOPRIM 160 MG TABLET ER if flank pain worsening- cannot fully work up something like a kidney stone. 3. Persistent cough for 3 weeks or longer - ICD9: 786.2, ICD10: R05.3 X 2-3 months - COVID & INFLUENZA A/B & RSV NAAT, ROUTINE - TESSALON - PREDNISONE CXR 07/04 for the same cough- negative Consider getting anew CXR 4. Viral syndrome - ICD9: 079.99, ICD10: B34.9 New fever, body aches, ARMENDARIZ , and sick symptoms x 24 hours (09/08/23) - COVID & INFLUENZA A/B & RSV NAAT, ROUTINE Encourage fluids, rest. Zyrtec Tylenol and Motrin for pain and fever Saline Nasil spray, Neti Pot, vaporizer, Vicks. Try Cepocol lozenges or Chloraseptic throat spray. Warm salt water gargles. Cough and deep breath- 10x/hr while awake. Call PCP if sx worsen or no better. If symptoms worsen, or new symptoms develop go to ER. If you have worsening of breathing or breathing changes- go to ER. If you have persistent fever unrelieved by Tylenol/Motrin- go to the ER. Follow up as needed. Barriers to learning: none. The patient verbalizes understanding and is in agreement with plan of care. This patient encounter involved the screening or treatment of novel coronavirus infection (COVID-19). - Red flags for in person care discussed - All questions answered Jennifer Grey PA-C Medical Decision Making: Problems: Low: Acute, uncomplicated illness or injury Moderate: Acute illness with systemic symptoms and New problem with uncertain prognosis Data: Unique test(s) ordered: 3+ Risk: Low: Low risk from testing/treatment Moderate: Drug management Medical Decision Making Level: 4 - Moderate I spent a total of 35 minutes on the date of the service which included preparing to see the patient, [id number] patient care, completing clinical documentation, performing a medically appropriate examination, counseling and educating the patient/family/caregiver, ordering medications, tests, or procedures, and communicating results to the patient/family/caregiver. documented in this encounter [facility] 07-04-2023 History of Present illness Narrative Radiology Service Progress Note PATIENT NAME: Pati Mohamud DATE OF SERVICE: July 04, 2023 TIME: 10:44 AM PATIENT IDENTITY VERIFICATION COMPLETED USING TWO (2) IDENTIFIERS: Name and Date of confirmed by patient verbally. FALL SCREENING: Has the patient had 2 falls in the last year or 1 fall with injury or currently using an Ambulatory Assistive Device (Walker, Cane, Wheelchair, Crutches, etc.)? No PATIENT GENDER DATA: Female. status: : No status: NO. PATIENT RELEVANT IMPLANT DATA REVIEWED: Yes RADIOLOGY DEPARTMENT: General X-ray: Exam(s) Completed: Chest X-Ray PERIPHERAL IV DATA: Not applicable SIGNED BY: RT Lawanda(R) July 04, 2023 10:44 AM documented in this encounter [facility] 06-22-2023 History of Present illness Narrative This note was created using Ichibariter. Subjective Pati Mohamud is a 37 year old female. HPI Presents with a chief complaint of cough and congestion over the past month. Past few days have worsened. Her daughter is ill as well. No diarrhea or vomiting however she feels like she could vomit with some of her coughing fits. She has lost smell and taste. No positive home COVID COVID test. No chest pain. She denies history of asthma. Review of Systems Constitutional: Negative. HENT: Positive for congestion. Negative for ear pain. Respiratory: Positive for cough. Negative for shortness of breath and wheezing. Cardiovascular: Negative. Gastrointestinal: Negative. Genitourinary: Negative. Musculoskeletal: Negative. All other systems reviewed and are negative. PAST MEDICAL HISTORY Diagnosis Date Anemia Morbid obesity (HCC) Current Outpatient Medications Medication Sig Dispense Refill doxycycline (VIBRA-TABS) 100 mg tablet Take 1 tablet by mouth two times a day for 7 days. 14 tablet 0 benzonatate (TESSALON PERLES) 100 mg capsule Take 2 capsules by mouth three times a day as needed. 30 capsule 0 Wezkeowckknrgtc-Jycgzxvjp-CW (BROMFED DM) 2-30-10 mg/5 mL syrup Take 10 mL by mouth four times daily as needed. 118 mL 0 fluticasone (FLONASE ALLERGY RELIEF) 50 mcg/actuation nasal spray Use 1 [place] in each nostril twice daily. 1 Each 0 albuterol HFA (PROVENTIL HFA, VENTOLIN HFA) 90 mcg/actuation inhaler Inhale 2 Puffs as instructed every 4 hours as needed for wheezing/shortness of breath. 1 Each 0 LORazepam (ATIVAN) 0.5 mg Take by mouth once daily as needed. ADBRY 150 mg/mL injection as directed. gabapentin (NEURONTIN) 300 mg capsule Take 1 capsule by mouth daily at bedtime for 30 days. 30 capsule 0 omeprazole magnesium (PRILOSEC ORAL) Take by mouth. No current facility-administered medications for this visit. PAST SURGICAL HISTORY Procedure Laterality Date ANESTH, SECTION 2005, 2010twice CHOLECYSTECTOMY HIATAL HERNIA REPAIR HX ORAL SURGERY PROCEDURE FAMILY HISTORY Family history unknown: Yes Social History Tobacco Use Smoking status: Former Types: Cigarettes Quit date: 05/2017 Years since quittin.1 Smokeless tobacco: Never Tobacco comments: smoked for 3 months Vaping Use Vaping Use: Never used Substance Use Topics Alcohol use: No Drug use: No Objective BP 139/83 Pulse 95 Temp 37.1 C (98.8 F) Resp 18 Wt 109 kg (240 lb 6.4 oz) LMP 10/30/2022 (Approximate) SpO2 100% BMI 40.00 kg/m Physical Exam Vitals reviewed. Constitutional: Appearance: Normal appearance. HENT: Head: Normocephalic and atraumatic. Right Ear: Tympanic membrane, ear canal and external ear normal. Left Ear: Tympanic membrane, ear canal and external ear normal. Nose: Congestion present. Mouth/Throat: Mouth: Mucous membranes are moist. Pharynx: Oropharynx is clear. Cardiovascular: Rate and Rhythm: Normal rate and regular rhythm. Heart sounds: Normal heart sounds. Pulmonary: Effort: Pulmonary effort is normal. Breath sounds: Normal breath sounds. Musculoskeletal: Cervical back: Neck supple. Skin: General: Skin is dry. Neurological: Mental Status: She is alert. Assessment and Plan ASSESSMENT/PLAN: 1. Sinobronchitis - ICD9: 473.9, 490, ICD10: J32.9, J40 - Will begin treatment with Doxycycline - Supportive care with plenty of fluids, rest, and analgesia prn. - Follow up in 3-5 days if symptoms persist or worsen. Chika Rivas PA-C documented in this encounter [facility] 02-26-2023 Miscellaneous Notes Patient aware. Addended by: JOHN SANCHEZ on: 02/26/2023 01:44 PM Modules accepted: Orders I sent in a cough syrup to [facility]. John Sanchez APRN.CNP Discussed message below with patient. She would like LPN RN to send in script for cough syrup without codeine. Marilee Peterson RN I won't send a controlled substance cough syrup for her and Dr. Hunter is out all week. She can try to have the Rx changed to a pharmacy that does have the medication in stock or I can send in something that is not a controlled substance. John Sanchez APRN.ARPIT Patient went to ED on 02/24 and was prescribed cough syrup with codeine. hydrocodone homatropine and [facility] does not have it within at 20 mile radius. Unable to contact ED provider so she is wondering if Dr. Hunter could send the prescription elsewhere. Thank you. documented in this encounter [facility] 02-26-2023 Miscellaneous Notes Received ed visit summary for cough and chest x ray report (normal) from [facility]. Placed in provider's inbox for review. Route to [place] scanning. documented in this encounter [facility] 02-24-2023 Hospital Discharge instructions Additional Instructions Your chest x-ray reveals no signs of pneumonia indicating you have a viral respiratory tract infection. This can last on average 2 to 3 weeks. Take the prescribed medication as directed to help control your symptoms and return to the ER should you have any further concerns [facility] Work Phone: 01-27-2023 History of Present illness Narrative Radiology Service Progress Note PATIENT NAME: Pati Mohamud DATE OF SERVICE: January 27, 2023 TIME: 7:58 AM PATIENT IDENTITY VERIFICATION COMPLETED USING TWO (2) IDENTIFIERS: Name and Date of confirmed by patient verbally. FALL SCREENING: Has the patient had 2 falls in the last year or 1 fall with injury or currently using an Ambulatory Assistive Device (Walker, Cane, Wheelchair, Crutches, etc.)? No PATIENT GENDER DATA: Female. status: : No status: NO. PATIENT RELEVANT IMPLANT DATA REVIEWED: Not Applicable RADIOLOGY DEPARTMENT: General X-ray: Exam(s) Completed: Chest X-Ray PERIPHERAL IV DATA: Not applicable SIGNED BY: RT Mercy(R) January 27, 2023 7:58 AM documented in this encounter [facility] 01-26-2023 History of Present illness Narrative This note was created using Ichibariter. Subjective Pati Mohamud is a 37 year old female. HPI by patient: Fanny Mohamud is a 37 year old presenting back to the office with the complaint of viral symptoms. Seen in this office on 01/24, two days ago. Negative strep, covid, and flu. Started approximately 5-6 days prior, on Sunday. Associated symptoms include sore throat, shortness of breath, cough, congestion, headache, fever, chills, and increased body aches. Denies gi symptoms. States she normally has to be tested 2 times for strep to be positive. Also, states her work ([employer]) will not let her work with a sore throat. Covid Immunization Dates Overdue - COVID-19 VACCINE (1) Overdue - never done 01/10/2022 Postponed until 01/10/2023 by Juvencio Montgomery (Declined at this time) Sick contacts: none. Smoking history/second hand smoke: none. OTC tylenol and mucinex since last visit- didn't help? No antibiotic use in the last 60 days. ALLERGIES No Known Allergies No family history on file. Social History Tobacco Use Smoking status: Former Types: Cigarettes Quit date: 05/2017 Years since quittin.7 Smokeless tobacco: Never Tobacco comments: smoked for 3 months Vaping Use Vaping Use: Never used Alcohol use: No Drug use: No Active Ambulatory Problems Adjustment disorder with mixed anxiety and depressed mood Date Noted: 03/18/2018 Obesity, Class II, BMI 35-39.9 Date Noted: 03/01/2022 Obesity, Class III, BMI >= 40 Date Noted: 04/07/2022 Resolved Ambulatory Problems Premature rupture of membranes Date Noted: 10/01/2017 Vaginal bleeding Date Noted: 10/01/2017 Past Medical History: No date: Anemia No date: Morbid obesity (HCC) Review of Systems Constitutional: Positive for chills, fatigue and fever (102.4F). HENT: Positive for congestion and sore throat. Negative for ear pain. Eyes: Negative. Respiratory: Positive for cough and shortness of breath. Cardiovascular: Negative. Gastrointestinal: Negative. Endocrine: Negative. Genitourinary: Negative. Musculoskeletal: Positive for myalgias. Skin: Negative. Neurological: Positive for headaches. Hematological: Negative. Objective BP 125/86 Pulse 98 Temp 36.3 C (97.3 F) Resp 16 Ht 165.1 cm (5' 5) Wt 104.8 kg (231 lb) LMP 10/30/2022 (Approximate) SpO2 98% BMI 38.44 kg/m Physical Exam Vitals reviewed. Constitutional: General: She is not in acute distress. Appearance: She is not ill-appearing, toxic-appearing or diaphoretic. HENT: Head: Normocephalic and atraumatic. Right Ear: Tympanic membrane, ear canal and external ear normal. Left Ear: Tympanic membrane, ear canal and external ear normal. Nose: Nose normal. Right Sinus: No maxillary sinus tenderness or frontal sinus tenderness. Left Sinus: No maxillary sinus tenderness or frontal sinus tenderness. Mouth/Throat: Mouth: Mucous membranes are moist. Pharynx: Oropharynx is clear. No oropharyngeal exudate or posterior oropharyngeal erythema. Cardiovascular: Rate and Rhythm: Normal rate and regular rhythm. Pulmonary: Effort: Pulmonary effort is normal. Breath sounds: No decreased breath sounds or rhonchi. Wheezes: faint, lower. Lymphadenopathy: Head: Right side of head: No submandibular or tonsillar adenopathy. Left side of head: No submandibular or tonsillar adenopathy. Cervical: No cervical adenopathy. Psychiatric: Behavior: Behavior is cooperative. Assessment and Plan (J02.9) Pharyngitis, unspecified etiology (primary encounter diagnosis) Plan: predniSONE (DELTASONE) 20 mg tablet (J06.9) Viral upper respiratory tract infection with cough Plan: Xzzkajiyovftygw-Hudpqfsgq-IO (BROMFED DM) 2-30-10 mg/5 mL syrup, fluticasone (FLONASE ALLERGY RELIEF) 50 mcg/actuation nasal spray (R06.02) SOB (shortness of breath) Plan: XR CHEST 2V FRONTAL/LAT, predniSONE (DELTASONE) 20 mg tablet Advised that she can in fact work with a sore throat. As long as covid is not positive she can return to work tomorrow. If work doesn't want her there then that is on them. Negative strep culture in office. Symptoms for just 5-6 days, likely viral. Will have patient go to any [facility] outpatient radiology department to have chest xray done, order is active for 2 weeks, and normal result goes to [facility]. -Keep using previously prescribed albuterol but also add prednisone to help with inflammation. -Drink lots of fluids and get plenty of rest. Gargle with salt water 3 times/day. -Vaporizers, cool mist humidifiers, warm showers, and warm fluids help open respiratory and sinus passages. Clean humidifiers daily. -OTC tylenol/ibuprofen as directed on the bottle. -Saline nasal spray as needed. Flonase twice daily can help reduce inflammation through the sinus cavities. -Cough/deep breathing education, promote clearing of the airways and good lung expansion. -Make follow up with primary care for monitoring and resolution in symptoms. -Signs that warrant an ER evaluation: Sudden change/worsening in condition, lethargy, signs of dehydration, fever greater than 102 F that is not responding to Tylenol or ibuprofen (Motrin, Advil), drooling, difficulty swallowing, difficulty breathing, shortness of breath, chest pain, evidence of airway compromise (tripod position, neck extension, retractions), seizures, changes in mental status, or other concerns. The patient will pursue further outpatient evaluation with the primary care physician or another Urgent Care/Express Care as outlined in the after visit summary. The patient is agreeable to this plan of care and follow-up instructions have been explained in detail. The patient has received these instructions in written format and have expressed an understanding of the after visit summary. Medical Decision Making: Level: 4 - Moderate I spent a total of 20 minutes on the date of the service which included preparing to see the patient, ayza-bf-afsy patient care, completing clinical documentation, obtaining and/or reviewing separately obtained history, performing a medically appropriate examination, counseling and educating the patient/family/caregiver, and ordering medications, tests, or procedures. This patient encounter involved the screening or treatment of novel coronavirus infection (COVID-19). documented in this encounter [facility] 01-26-2023 Instructions Yissel Reed APRN.CNP - 01/26/2023 3:34 PM EDT (J02.9) Pharyngitis, unspecified etiology (primary encounter diagnosis) Plan: predniSONE (DELTASONE) 20 mg tablet (J06.9) Viral upper respiratory tract infection with cough Plan: Dwblkvloublgbsv-Qrjdpdxum-WD (BROMFED DM) 2-30-10 mg/5 mL syrup, fluticasone (FLONASE ALLERGY RELIEF) 50 mcg/actuation nasal spray (R06.02) SOB (shortness of breath) Plan: XR CHEST 2V FRONTAL/LAT, predniSONE (DELTASONE) 20 mg tablet Education on viral vs bacterial infections. Most viral infections will last 10 days, sometimes 14. It is possible to have back to back viral infections. An antibiotic will not treat a virus. Negative strep culture in office. Symptoms for just 5-6 days, likely viral. Will have patient go to any [facility] outpatient radiology department to have chest xray done, order is active for 2 weeks, and normal result goes to [facility]. -Keep using previously prescribed albuterol but also add prednisone to help with inflammation. -Drink lots of fluids and get plenty of rest. Gargle with salt water 3 times/day. -Vaporizers, cool mist humidifiers, warm showers, and warm fluids help open respiratory and sinus passages. Clean humidifiers daily. -OTC tylenol/ibuprofen as directed on the bottle. -Saline nasal spray as needed. Flonase twice daily can help reduce inflammation through the sinus cavities. -Cough/deep breathing education, promote clearing of the airways and good lung expansion. -Make follow up with primary care for monitoring and resolution in symptoms. -Signs that warrant an ER evaluation: Sudden change/worsening in condition, lethargy, signs of dehydration, fever greater than 102 F that is not responding to Tylenol or ibuprofen (Motrin, Advil), drooling, difficulty swallowing, difficulty breathing, shortness of breath, chest pain, evidence of airway compromise (tripod position, neck extension, retractions), seizures, changes in mental status, or other concerns. Clear. You re in the normal range. Straight mucus is mostly water, with proteins, antibodies and dissolved salts. Your nasal tissues produce it 05/02. Most of it flows down the back of your throat to be dissolved in the stomach. White. You re congested. Swollen, inflamed tissues in your nose are slowing the flow of mucus, causing it to lose moisture and become thick and cloudy. This can be a sign of a nasal infection or cold. Yellow. Your cold or infection is progressing. Infection-fighting cells might be rushing to the site of the microbial infection. White blood cells are among them as well. Once exhausted, they re carried off on the mucosal tide, lending it a yellowish tinge. Colds inevitably last 10 to 14 days. [place] down and wait it out. Green. Your immune system is really fighting back. The mucus is thick with white cells and other wreckage from the greene. If you re still sick after about 12 days, you may want to see a doctor. It could be sinusitis, a bacterial infection. If you re feverish or nauseated, see a doctor soon. Chauvin or red. This is blood. Your nasal tissue in the nose has somehow become broken -- perhaps because it s dry, irritated or suffered some kind of impact. Brown. This shade could be blood, but likely it s something inhaled, like dirt, snuff or paprika. documented in this encounter [facility] 01-24-2023 Instructions Evelyn Carver APRN.ARPIT - 01/24/2023 10:24 AM EDT How to Manage Common Symptoms Associated with COVID for Adults Fever- Fever is a temperature over 100.4 F and can occur when the body is fighting an infection. To help treat a fever: Drink plenty of fluids and stay well hydrated. Eat small amounts of easy to digest food. Rest. Your body needs rest to recover, but getting up and moving around the house frequently is a good idea. You should try to continue doing your normal daily activities (bathing, toileting, grooming, cooking), though you will probably feel tired, and need to rest often. Avoid any heavy activity or exercise, as this will increase your body temperature. Dress in light clothing and stay covered in a light sheet. Keep the room temperature cool. Take a slightly warm (not cold or cool) bath, or apply damp washcloths to the forehead and wrists. Cough- Cough is a common symptom associated with COVID and can be bothersome. To help treat a cough: Stay well hydrated. Try warm water or tea with lemon and/or honey to help soothe the cough. Use a humidifier to add moisture to the air. Try a product with menthol, like a cough drop or a rub for your chest such as Vicks, which can help reduce cough. Try cough drops. Avoid smoking and other strong odors or perfumes. Try breathing exercises to keep your lungs open and clear. Take a big deep breath through your nose and hold for 5 seconds before slowly releasing. Repeat frequently, while you are awake. Congestion- Runny nose or nasal congestion can occur with COVID. Treatment can help relieve symptoms: Try OTC nasal saline spray, or nasal saline rinse to relieve mucus congestion. Nasal strips can help keep nasal passages open, to increase airflow. Elevating your head with an extra pillow in bed can help reduce congestion. Using a humidifier can increase moisture in the air, and make breathing easier. Sore Throat- Another common symptom with COVID, can be managed at home by: Stay well hydrated. Gargle with salt water - mix teaspoon salt with 1 cup of warm water and gargle. This helps to loosen mucus in the back of the throat and may reduce discomfort. Try ice chips, popsicles or lozenges to soothe the throat. Nausea/Vomiting/Diarrhea- These are common symptoms, and staying hydrated is most important. If you are nauseous or vomiting, start with small sips of water every 10-15 minutes and increase as tolerated. You can try sucking an ice cube too. If tolerating, you can try pedialyte or Gatorade, or flat sprite or jigna-jordan. Start slowly and increase as you are able to. Instead of meals, try smaller, more frequent snacks. Try eating bland foods like crackers, toast, rice, and applesauce. Avoid spicy, greasy or fried foods and dairy containing foods. Even if you aren't feeling hungry due to lack of smell or taste, it is important to try to take in some food when you are able. After drinking and eating, rest in an upright position for up to two hours as needed to help decrease nauseous feelings. Try closing your eyes, avoid moving and watching TV. Avoid strong odors that can make you feel more nauseated. When to seek emergency medical attention Look for emergency warning signs for COVID-19. If having any of these symptoms, seek emergency medical care immediately: Trouble breathing Persistent pain or pressure in the chest New confusion Inability to wake or stay awake Bluish lips or face *This list is not all possible symptoms. Please call your medical provider for any other symptoms that are severe or concerning to you. documented in this encounter [facility] 01-24-2023 History of Present illness Narrative This note was created using [email or web address]. Subjective Pati Mohamud is a 37 year old female. The history is provided by the patient. Sore Throat This is a new problem. The current episode started in the past 7 days. The problem has been gradually worsening. The maximum temperature recorded prior to her arrival was 100.4 - 100.9 F. Associated symptoms include congestion, coughing and ear pain. Pertinent negatives include no diarrhea, shortness of breath or vomiting. She has tried NSAIDs and acetaminophen for the symptoms. Review of Systems Constitutional: Positive for activity change, appetite change, fatigue and fever. HENT: Positive for congestion, ear pain, rhinorrhea, sinus pressure, sinus pain and sore throat. Loss of taste Respiratory: Positive for cough. Negative for shortness of breath and wheezing. Gastrointestinal: Positive for nausea. Negative for diarrhea and vomiting. Objective BP 111/78 (BP Site: Right Arm, BP Position: Sitting, BP Cuff Size: Large Adult) Pulse 99 Temp 36.9 C (98.5 F) (Right Tympanic) Resp 18 Ht 165.1 cm (5' 5) Wt 105.1 kg (231 lb 9.6 oz) LMP 10/30/2022 (Approximate) SpO2 97% BMI 38.54 kg/m Physical Exam Vitals and nursing note reviewed. Constitutional: General: She is awake. Appearance: Normal appearance. HENT: Head: Normocephalic. Right Ear: Ear canal and external ear normal. A middle ear effusion is present. Left Ear: Ear canal and external ear normal. A middle ear effusion is present. Tympanic membrane is bulging. Nose: Nose normal. Mouth/Throat: Lips: Chauvin. Mouth: Mucous membranes are moist. Pharynx: Oropharynx is clear. Uvula midline. Tonsils: Tonsillar exudate present. Cardiovascular: Rate and Rhythm: Normal rate and regular rhythm. Heart sounds: Normal heart sounds. Pulmonary: Effort: Pulmonary effort is normal. Breath sounds: Normal air entry. Examination of the right-upper field reveals wheezing. Examination of the right-middle field reveals wheezing. Wheezing present. Lymphadenopathy: Head: Right side of head: Tonsillar adenopathy present. Left side of head: Tonsillar adenopathy present. Cervical: Cervical adenopathy present. Skin: General: Skin is warm and dry. Neurological: Mental Status: She is alert. HISTORIES PAST MEDICAL HISTORY Diagnosis Date Anemia Morbid obesity (HCC) PAST SURGICAL HISTORY Procedure Laterality Date ANESTH, SECTION 2005, 2010twice CHOLECYSTECTOMY HIATAL HERNIA REPAIR HX ORAL SURGERY PROCEDURE FAMILY HISTORY Family history unknown: Yes Social History Tobacco Use Smoking status: Former Types: Cigarettes Quit date: 05/2017 Years since quittin.6 Smokeless tobacco: Never Tobacco comments: smoked for 3 months Vaping Use Vaping Use: Never used Substance Use Topics Alcohol use: No Drug use: No Current Outpatient Medications on File Prior to Visit Medication Sig LORazepam (ATIVAN) 0.5 mg Take by mouth once daily as needed. ADBRY 150 mg/mL injection as directed. omeprazole magnesium (PRILOSEC ORAL) Take by mouth. gabapentin (NEURONTIN) 300 mg capsule Take 1 capsule by mouth twice daily for 90 days. (Patient not taking: Reported on 01/24/2023) gabapentin (NEURONTIN) 300 mg capsule Take 1 capsule by mouth daily at bedtime for 30 days. No current facility-administered medications on file prior to visit. ALLERGIES No Known Allergies HEPATITIS B(1 of 3 - 3-dose series) Never done COVID-19 VACCINE(1) Never done PAP TESTING Never done HPV TESTING Never done DEPRESSION ASSESSMENT due on 07/16/2022 Assessment and Plan ASSESSMENT/PLAN: 1. Viral URI with cough - ICD9: 465.9, ICD10: J06.9 (primary diagnosis) - Discussed viral etiology and rationale for treatment. - Alere Strep Test NEG, no culture pending - Symptomatic treatment with prn analgesia - Supportive care with fluids and rest - The patient may also use OTC cough and cold meds as needed and warm salt water gargles, throat lozenges and/or OTC throat spray as needed. - Follow up in 3-5 days if symptoms persist or sooner if worsening of symptoms 2. Sore throat - ICD9: 462, ICD10: J02.9 As above - STREP A MOLECULAR (POC) - COVID WITH FLUA+B, ROUTINE 3. Flu-like symptoms - ICD9: 780.99, ICD10: R68.89 As above - COVID WITH FLUA+B, ROUTINE 4. Smoker - ICD9: 305.1, ICD10: F17.200 - Cessation encouraged. Evelyn Carver APRN.ARPIT documented in this encounter [facility] 11-13-2022 History of Present illness Narrative This note was created using Ichibariter. Subjective Pati Bond is a 36 year old female. Patient reports numbness in left arm x 1 month, loss of strength, dropping objects. Numbness extends from shoulder to hand and all fingers. Feels symptoms most of the day and at night, difficulty sleeping. Pain into the palm of her left hand. Patient is left handed. Does feel some intermittent pain to the left side of the neck, but no decreased ROM. Right hand also feels weak and will drop things sometimes, but no pain or paresthesias in the arm. Has throbbing pain in the right palmar area intermittently into fingertips. No swelling in hands. Has tried tylenol and ibuprofen with no help. The history is provided by the patient. Review of Systems Musculoskeletal: Positive for arthralgias, myalgias and neck pain. Negative for joint swelling and neck stiffness. Neurological: Positive for weakness and numbness. PAST MEDICAL HISTORY Diagnosis Date Anemia Morbid obesity (HCC) PAST SURGICAL HISTORY Procedure Laterality Date ANESTH, SECTION 2005, 2010twice CHOLECYSTECTOMY HIATAL HERNIA REPAIR HX ORAL SURGERY PROCEDURE ALLERGIES Patient has no known allergies. MEDICATIONS omeprazole magnesium (PRILOSEC ORAL) Take by mouth. ADBRY 150 mg/mL injection as directed. (Patient not taking: Reported on 11/13/2022) gabapentin (NEURONTIN) 300 mg capsule Take 1 capsule by mouth daily at bedtime for 30 days. FAMILY HISTORY Family history unknown: Yes Social History Tobacco Use Smoking status: Former Types: Cigarettes Quit date: 05/2017 Years since quittin.4 Smokeless tobacco: Never Tobacco comments: smoked for 3 months Vaping Use Vaping Use: Never used Substance Use Topics Alcohol use: No Drug use: No Objective BP 113/76 Pulse 84 Wt 108.9 kg (240 lb) LMP 05/16/2022 (Approximate) BMI 39.94 kg/m Physical Exam Vitals and nursing note reviewed. Constitutional: Appearance: She is well-developed. She is not ill-appearing. Pulmonary: Effort: Pulmonary effort is normal. Musculoskeletal: Cervical back: Tenderness (mild left side) present. No bony tenderness. Normal range of motion. Thoracic back: Tenderness present. No bony tenderness. Skin: General: Skin is warm and dry. Neurological: Mental Status: She is alert and oriented to person, place, and time. Comments: Positive Phalen's sign on left hand, negative Tinel's bilaterally; hair sample matcher strength equal bilaterally though slightly diminished Assessment and Plan 1. Paresthesia of left arm Recommend cervical spine xrays, EMG studies, and follow up with neurology. Trial gabapentin at bedtime for pain. Trial wrist brace on left side. - EMG(NEURO/NI); Future - XR CERV OTHER 4V AP/LAT/OBL; Future - gabapentin (NEURONTIN) 300 mg capsule; Take 1 capsule by mouth daily at bedtime for 30 days. Dispense: 30 capsule; Refill: 0 - CONSULT TO NEUROLOGY; Future 2. Weakness of right hand - EMG(NEURO/NI); Future - CONSULT TO NEUROLOGY; Future 3. Left arm pain John Sanchez APRN.ARPIT documented in this encounter [facility] 06-01-2022 History of Present illness Narrative Images from the original note were not included. This note was created using [email or web address]. Subjective Pati Bond is a 36 year old female. Patient reports right lower eyelid is itchy, burning to inner and outer lower eyelid with open unhealing cracked area. Watery discharge, a little blurry today. Has eczema on other areas of her face, wasn't sure if these symptoms were part of her eczema. Had dupixent shot a month ago. Has tried anti-itch OTC drops that didn't help, no compresses. Review of Systems Eyes: Positive for discharge, redness, itching and visual disturbance. Negative for photophobia and pain. Objective BP 113/73 Pulse 104 Temp 36.6 C (97.8 F) (Left Tympanic) Ht 165.1 cm (5' 5) Wt 108.9 kg (240 lb) LMP 05/16/2022 (Approximate) SpO2 97% BMI 39.94 kg/m Physical Exam Vitals and nursing note reviewed. Constitutional: Appearance: She is well-developed. HENT: Head: Comments: Dry scaly skin in this area Eyes: Conjunctiva/sclera: Conjunctivae normal. Pupils: Pupils are equal, round, and reactive to light. Comments: Lateral lower eyelid-Open cracked area with scaly peeling skin overlying it, no edema/drainage, tender Medial lower eyelid with mild dry skin, no open areas or edema Pulmonary: Effort: Pulmonary effort is normal. Skin: General: Skin is warm and dry. Neurological: Mental Status: She is alert and oriented to person, place, and time. Assessment and Plan 1. Eczema of right eyelid Short course of antibiotic eye ointment, continue current eczema treatment. Follow up in 1 week if no improvement/worsening or any new swelling/erythema/pain/drainage. - sglluoax-vdhktiwhpd-mntpnxizi (NEOSPORIN) ophthalmic ointment; Use 1 application in the right eye four times daily. Dispense: 3.5 g; Refill: 0 John Sanchez APRN.ARPIT documented in this encounter [facility] 06-01-2022 Miscellaneous Notes Pharmacy verified in Epic Patient has been identified by name and date of : Yes Patient aware RX will be sent to pharmacy. No need to notify patient. Pharmacy phones for refill(s): Requested Prescriptions Pending Prescriptions Disp Refills fluticasone (FLONASE) 50 mcg/actuation nasal spray [Pharmacy Med Name: FLUTICASONE PROP 50 MCG SPRAY] 16 mL 0 Sig: USE 2 SPRAYS IN EACH NOSTRIL ONCE DAILY. RINSE MOUTH AFTER USE. Date of last office visit : 04/05/2022 Date of next office visit : Visit date not found Last 2 Encounter Wt Readings: Date: Wt: 04/05/2022 112.9 kg (249 lb) 03/31/2022 100.7 kg (222 lb) Not applicable Please advise. Breanna Mendez LPN documented in this encounter [facility] 04-28-2022 Miscellaneous Notes Thank You FYI I have the form on my desk in physical copy. documented in this encounter [facility] 04-24-2022 History of Present illness Narrative Sent in new prescription for Linzess as I had not received the PA for the original script. Pati Chopra PA-C documented in this encounter [facility] 04-24-2022 History of Present illness Narrative Images from the original note were not included. COLORECTAL SURGERY Post-Op Visit April 24, 2022 Pati Bond returns for a post-operative visit after undergoing LIS, on 3 weeks ago. She is feeling dramatically better pain down to 2-3 and it goes away. Her post-operative period was uncomplicated. She is tolerating diet with an improving appetite, stable weight, and energy level is improving . She has no specific complaints, except still feels sore. Was taking MiraLax but stopped as she ran out this weekend. Has not tried metamucil. Current pain medications: Ibuprofen Current bowel related medications: Linzess but waiting on preauth Bowel movement frequency: 1 every 2-3 days - stools are thick ans pasty but not hard. Current Outpatient Medications Medication Sig Dispense Refill oxyCODONE IR (ROXICODONE) 5 mg immediate release tablet Take 1 tablet by mouth every 6 hours as needed for pain. 10 tablet 0 fluticasone (FLONASE) 50 mcg/actuation nasal spray Use 2 Sprays in each nostril once daily. Rinse mouth after use. 18.2 Each 0 Pseudoephedrine HCl (SUDAFED SR) 120 mg TbER Take 1 tablet by mouth every 12 hours. 20 tablet 0 linaCLOtide (LINZESS) 72 mcg capsule Take 1 capsule by mouth once daily. Administer on an empty stomach. Swallow whole; DO NOT crush or chew. 30 capsule 0 LORazepam (ATIVAN) 0.5 mg Take by mouth. omeprazole magnesium (PRILOSEC ORAL) Take by mouth. triamcinolone acetonide topical 0.5 % ointment Apply to affected area twice daily. 30 g 2 No current facility-administered medications for this visit. ALLERGIES No Known Allergies LMP 03/25/2022 (Approximate) Anorectal: deferred Computer Publisher present: No - we did not exam her Assessment Assessment: Pati Bond is a 36 year old female who is 3 weeks status post LIS. Plan Plan: 1) Miralax every evening 2) Benefiber every morning 3) await Linzess - would like to see GI and gen surg for constipation and hiatal hernia 4) RTC CORS as needed I spent a total of 25 minutes on the date of the service which included preparing to see the patient, [id number] patient care, completing clinical documentation, obtaining and/or reviewing separately obtained history, performing a medically appropriate examination, counseling and educating the patient/family/caregiver, ordering medications, tests, or procedures, communicating with other HCPs (not separately reported), independently interpreting results (not separately reported), communicating results to the patient/family/caregiver, and care coordination (not separately reported). Mark Boyer MD, MS, FACS, FASCRS Inflammatory Bowel Disease Surgery Ballast Cleaning Operator Director of Research, Department of Colorectal Surgery [facility] [address] [place] [address] documented in this encounter [facility] 04-24-2022 Nurse Note Est Pt DX: Anal Fissure Imaging 02/13/22 CT ABD/pelvis IMPRESSION: No acute abnormality. Surgery/Procedure 04/07/[address]Holubar MORE of anorectum, bilateral pudendal nerve block, open tailored lateral internal sphincterotomy, fissurectomy Findings: v bulky IAS 03/01/[address]Holubar MORE anorectum, fissurectomy (cautery), bilateral pudendal nerve block, chemical dennervation of the internal anal sphincter Findings: moderately large posterior midline [id number] Clinical Notes 03/31/22 Office Visit Pietro HPI: Fanny Bond is a 36 year old female s/p EUA with botox for continued pain. At her last visit Marguerite recommended she stop taking Oxycodone and start taking Flexeril, sitz baths, Miralax, Nifedipine cream and to follow up in 1 week. Today she reports: -Noted things started to get better but then a week or two ago things got worse again -Pain: Pain subsides after 2-3 days after BM, then will be good for 12 hours. Pain is sharp not as bad as fissure. Currently the pain is a 7/10 -Taking Tylenol and Motrin as needed , -Bottom feels swollen like there are hemorrhoids -Bms: every 3-4 days, sometimes it is soft, most of the time is thick paste -A little blood in BM 2 days ago -Doing Miralax twice a day -Trying Muscle relaxers at night, not helping Physical Exam Anorectal: Perianal skin is intact. No erythema, induration or excoriation. Fresh looking posterior midline fissure. External hemorrhoidal complex. Area is very tender to touch Digital Rectal Exam: Deferred due to pain Assessment & Diagnosis: Pati Bond is a 36 year old female with an anal fissure that is s/p botox injection one month prior to today. Patient is still exhibiting fissure like pain that is worse with bowel movements. Upon exam patients fissure has some improvement but still looks active in which it is most likely causing her 7/10 pain. She is currently taking Miralax BID. We will try Linzess once a day to help liquify her stools to help reduce straining and irritation with bowel movements. Patient was examined with Dr. Boyer, he recommended we go forward with a lateral sphincterotomy. His office will be in contact with the patient. Patient written off from work for one month. Plan: Linzess Muscle relaxer at night Lateral sphincterotomy documented in this encounter [facility] 04-05-2022 History of Present illness Narrative This note was created using Floodlight. Subjective Pati Bond is a 36 year old female. Patient reports URI symptoms started last Sunday with nasal congestion. Throat feels swollen, but doesn't hurt. Minimal cough to clear throat sometimes. No fevers/chills/body aches/sweats/headaches. Both ears are popping, worse in left and when blowing. History of PE tubes as a child. Daughters have had similar symptoms for weeks, both tested for covid a few times and negative. One was treated for an antibiotic for a double ear infection. Has not taken a covid test. Took tylenol for ear pain. Is supposed to have additional colorectal surgery on Sunday. No history of seasonal allergies. Review of Systems Constitutional: Negative for chills and fever. HENT: Positive for congestion, ear pain, hearing loss and postnasal drip. Negative for ear discharge, rhinorrhea and sore throat. Eyes: Positive for itching. Negative for discharge and redness. Respiratory: Negative for cough, shortness of breath and wheezing. Cardiovascular: Negative for chest pain. Allergic/Immunologic: Negative for immunocompromised state. PAST MEDICAL HISTORY Diagnosis Date Anemia Morbid obesity (HCC) PAST SURGICAL HISTORY Procedure Laterality Date ANESTH, SECTION 2005, 2010twice CHOLECYSTECTOMY HIATAL HERNIA REPAIR HX ORAL SURGERY PROCEDURE ALLERGIES Patient has no known allergies. MEDICATIONS linaCLOtide (LINZESS) 72 mcg capsule Take 1 capsule by mouth once daily. Administer on an empty stomach. Swallow whole; DO NOT crush or chew. ibuprofen (MOTRIN) 600 mg tablet TAKE 1 TABLET BY MOUTH EVERY 6 TO 8 HOURS NEEDED FOR PAIN. MAX 3200MG PER DAY omeprazole magnesium (PRILOSEC ORAL) Take by mouth. triamcinolone acetonide topical 0.5 % ointment Apply to affected area twice daily. lidocaine (XYLOCAINE) 2 % jelly Apply as directed. (Patient not taking: Reported on 04/05/2022) lidocaine (XYLOCAINE) 2 % jelly Apply as directed. pramoxine-hydrocortisone (PROCTOFOAM HC) rectal foam 1 Applicator by RECTAL route twice daily. sertraline (ZOLOFT) 50 mg tablet PHENYLephrine-cocoa butter (PREPARATION H) 0.25-88.44 % supp Phenylephrine Hcl/Niles Butter Active 1 EA EVERY 8 HOURS NEEDED December 23, 2018 11:21am (Patient not taking: Reported on 04/05/2022) naproxen (NAPROSYN) 500 mg tablet Take by mouth. (Patient not taking: Reported on 04/05/2022) LORazepam (ATIVAN) 0.5 mg Take by mouth. amitriptyline (ELAVIL) 10 mg tablet TAKE 1 TABLET BY MOUTH EVERYDAY AT BEDTIME dupilumab (DUPIXENT) 300 mg/2 mL pen Inject subcutaneously every 2 weeks. hydrOXYzine HCl (ATARAX) 25 mg tablet Take one tablet by mouth for one dose 1 hour prior to dental procedure for anxiety. busPIRone (BUSPAR) 10 mg tablet TAKE 1 TABLET BY MOUTH TWICE A DAY (Patient taking differently: 10 mg as needed.) cetirizine (ZYRTEC) 10 mg tablet Take 1 tablet by mouth once daily. (Patient not taking: Reported on 04/05/2022) FAMILY HISTORY Family history unknown: Yes Social History Tobacco Use Smoking status: Former Types: Cigarettes Quit date: 05/2017 Years since quittin.8 Smokeless tobacco: Never Tobacco comments: smoked for 3 months Vaping Use Vaping Use: Never used Substance Use Topics Alcohol use: No Drug use: No Objective BP 100/63 Pulse 94 Ht 165.1 cm (5' 5) Wt 112.9 kg (249 lb) LMP 03/25/2022 (Approximate) BMI 41.44 kg/m Physical Exam Vitals and nursing note reviewed. Constitutional: Appearance: She is not ill-appearing. HENT: Right Ear: Ear canal normal. A middle ear effusion (clear air bubbles) is present. Left Ear: Ear canal normal. A middle ear effusion (clear air bubbles) is present. Nose: Congestion and rhinorrhea present. Mouth/Throat: Pharynx: Uvula midline. Posterior oropharyngeal erythema present. No oropharyngeal exudate. Tonsils: No tonsillar exudate. Comments: Cobblestoning in posterior pharynx Cardiovascular: Rate and Rhythm: Normal rate and regular rhythm. Heart sounds: Normal heart sounds. Pulmonary: Effort: Pulmonary effort is normal. Breath sounds: Normal breath sounds. Lymphadenopathy: Cervical: No cervical adenopathy. Skin: General: Skin is warm and dry. Neurological: Mental Status: She is alert and oriented to person, place, and time. Assessment and Plan 1. URI, acute Discussed likely viral syndrome, rule out covid. Supportive care with sudafed, flonase, OTC analgesics PRN, saline spray/lavage, increased fluids, rest. - 2019 CORONAVIRUS 2. ETD (Eustachian tube dysfunction), bilateral - fluticasone (FLONASE) 50 mcg/actuation nasal spray; Use 2 Sprays in each nostril once daily. Rinse mouth after use. Dispense: 18.2 Each; Refill: 0 - Pseudoephedrine HCl (SUDAFED SR) 120 mg TbER; Take 1 tablet by mouth every 12 hours. Dispense: 20 tablet; Refill: 0 John Sanchez APRN.ARPIT documented in this encounter [facility] 03-31-2022 Instructions Pati Chopra PA-C - 03/31/2022 11:17 AM EDT - Linzess will be taken once a day to help with constipation - Written off work until May 01 - Lateral sphincterotomy is the surgery that Dr. Boyer will like to do, Sadaf will contact you -Until you get Linzess take it twice a day - Continue to take the muscle relaxer at night documented in this encounter [facility] 03-31-2022 History of Present illness Narrative COLORECTAL SURGERY Follow-up March 31, 2022 Chief complaint: Anal fissure follow up Last office visit 03/21/22 with Marguerite Plata CNP Assessment & Diagnosis: Pati Bond is a 36 year old female who is here for rectal pain follow up. Patient discomfort due to bowel movements due to high tone. Patient will trial flexiril trial, patient was counseled while taking flexeril she must stop using oxycodone. She will use this at bedtime to see if this helps with discomfort. Addtionally patient will use nifedipeine cream that she has TID along with warm sitz baths BID. She will follow up in 1 week virtually with Pati Chopra or this provider to see if pain is alleviated. If at that point she is still having pain, may try baclofen suppositories or send back to pain management. Treatment plan: Stop using oxycodone before starting flexeril at night. Do warm sitz bath twice a day for 10 minutes, use lidocaine cream as needed for pain. Keep taking Miralax daily to have bowel movements every other day. Do not strain or sit long periods of time on the toilet Use Nifedipine cream TID in addition to above interventions. Follow up in 1 week virtually with Pati or Negrito virtually. HPI: Fanny Bond is a 36 year old female s/p EUA with botox for continued pain. At her last visit Marguerite recommended she stop taking Oxycodone and start taking Flexeril, sitz baths, Miralax, Nifedipine cream and to follow up in 1 week. Today she reports: -Noted things started to get better but then a week or two ago things got worse again -Pain: Pain subsides after 2-3 days after BM, then will be good for 12 hours. Pain is sharp not as bad as fissure. Currently the pain is a 7/10 -Taking Tylenol and Motrin as needed , -Bottom feels swollen like there are hemorrhoids -Bms: every 3-4 days, sometimes it is soft, most of the time is thick paste -A little blood in BM 2 days ago -Doing Miralax twice a day -Trying Muscle relaxers at night, not helping Physical Exam: [facility] 02/26/2022 (Approximate) General - awake, alert, no acute distress Anorectal: Perianal skin is intact. No erythema, induration or excoriation. Fresh looking posterior midline fissure. External hemorrhoidal complex. Area is very tender to touch Digital Rectal Exam: Deferred due to pain Computer Publisher: Nacho RN and Dr. Boyer Assessment Medical Decision Making: Assessment & Diagnosis: Pati Bond is a 36 year old female with an anal fissure that is s/p botox injection one month prior to today. Patient is still exhibiting fissure like pain that is worse with bowel movements. Upon exam patients fissure has some improvement but still looks active in which it is most likely causing her 7/10 pain. She is currently taking Miralax BID. We will try Linzess once a day to help liquify her stools to help reduce straining and irritation with bowel movements. Patient was examined with Dr. Boyer, he recommended we go forward with a lateral sphincterotomy. His office will be in contact with the patient. Patient written off from work for one month. Plan: Linzess Muscle relaxer at night Lateral sphincterotomy Pati Chopra PA-C Colorectal Surgery Risk of morbidity, mortality and/or complications of treatment plan: moderate I spent a total of 25 minutes on the date of the service which included preparing to see the patient, [id number] patient care, completing clinical documentation, obtaining and/or reviewing separately obtained history, performing a medically appropriate examination, counseling and educating the patient/family/caregiver, ordering medications, tests, or procedures, and communicating with other HCPs (not separately reported). documented in this encounter [facility] 03-30-2022 Miscellaneous Notes Would it be apporopriate to see ? Of next plan? Not quite sure what is going on? Sounds good, there is something going on I cant put my finger on. Can I schedule her with you. It sounds like she is constipated(not following recommendations) and not drinking enough water if she is having a BM every 3-4 days. I dont know if this is a combination of slow transit or what Please Advise. Thank you documented in this encounter [facility] 03-21-2022 Instructions Marguerite Plata APRN.CNP - 03/21/2022 2:46 PM EDT Stop using oxycodone before starting flexeril at night. Do warm sitz bath twice a day for 10 minutes, use lidocaine cream as needed for pain. Keep taking Miralax daily to have bowel movements every other day. Do not strain or sit long periods of time on the toilet Use Nifedipine cream TID in addition to above interventions. Follow up in 1 week virtually with Pati vasques. documented in this encounter [facility] 03-21-2022 History of Present illness Narrative COLORECTAL SURGERY Follow-up March 17, 2022 Chief complaint: Anal fissure follow up Last office visit with Dr. Boyer on 03/13/2022 HPI: 36F s/p EUA, botox with continued pain She has an open wound on her right inner thigh which looks like a boil, noticed a week after surgery, drained some green pus, is now healing Bleeding twice since surgery Used all the oxycodone Doing sitz baths BM pasty, taking MiraLax once per day Physical Exam: LMP 02/23/2022 General - awake, alert, no acute distress Right inner thigh 1 cm open wound, no tracking no fluctuance no purulence no cellulitis Anorectal: External hemorrhoids and skin tags very inflamed and edematous with some small external thromboses Computer Publisher present: Yes, Sadaf Duckworth Assessment & Diagnosis: Pati Bond is a 36 year old female with 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 She is taking Miralax daily but is only having a soft paste bowel movement every 2-3 days. When she does have this bowel movement she is having pain afterwards for 1-2 days. She is using lidocaine cream as needed and is almost out of Oxycodone. She is doing warm sitz baths after bowel movements but not consistently. Physical Exam: Ht 165.1 cm (5' 5) Wt 100.7 kg (222 lb) LMP 02/26/2022 (Approximate) BMI 36.94 kg/m General - awake, alert, no acute distress Abdominal - soft non-tender Anorectal: Perianal skin is intact. No erythema, induration or excoriation. No visual fissure seen but patient does have several external hemorrhoids present, with one in the left anterior position that is tender to touch. Provider was not able to do digital exam due to pain. Also on left lower thigh old boil site was seen, scarring and scabbing present, no signs of infection seen. Patient states that it still causes discomfort in which she not able to wear jeans. Assessment Medical Decision Making: Assessment & Diagnosis: Pati Bond is a 36 year old female who is here for rectal pain follow up. Patient discomfort due to bowel movements due to high tone. Patient will trial flexiril trial, patient was counseled while taking flexeril she must stop using oxycodone. She will use this at bedtime to see if this helps with discomfort. Addtionally patient will use nifedipeine cream that she has TID along with warm sitz baths BID. She will follow up in 1 week virtually with Pati Chopra or this provider to see if pain is alleviated. If at that point she is still having pain, may try baclofen suppositories or send back to pain management. Data Reviewed: Tests & Documents Reviewed/ordered: Review of prior notes from Dr. Boyer and Pati Chopra PA-C I have discussed Pati Bond's treatment plan and/or results with patient. Treatment plan: Stop using oxycodone before starting flexeril at night. Do warm sitz bath twice a day for 10 minutes, use lidocaine cream as needed for pain. Keep taking Miralax daily to have bowel movements every other day. Do not strain or sit long periods of time on the toilet Use Nifedipine cream TID in addition to above interventions. Follow up in 1 week virtually with Pati chung I virtually. Marguerite Plata APRN.ARPIT Risk of morbidity, mortality and/or complications of treatment plan: low documented in this encounter [facility] 03-13-2022 History of Present illness Narrative Images from the original note were not included. COLORECTAL SURGERY Follow-up March 13, 2022 Chief complaint: fissure HPI: 36F s/p EUA, botox with continued pain She has an open wound on her right inner thigh which looks like a boil, noticed a week after surgery, drained some green pus, is now healing Bleeding twice since surgery Used all the oxycodone Doing sitz baths BM pasty, taking MiraLax once per day Physical Exam: LMP 02/23/2022 General - awake, alert, no acute distress Right inner thigh 1 cm open wound, no tracking no fluctuance no purulence no cellulitis Anorectal: External hemorrhoids and skin tags very inflamed and edematous with some small external thromboses Computer Publisher present: Yes, Sadaf Duckworth Assessment Medical Decision Making: Assessment & Diagnosis: Pati Bond is a 36 year old female with severe fissure in ano, perianal hemorrhoidal disease, right inner thigh ?boil Data Reviewed: Tests & Documents Reviewed/ordered: Review of prior notes from EHR Review of prior operative reports Assessment by: Care Center Team Additional testing or imaging to be ordered: see below I have independently interpreted: NA I have discussed Pati Bond's treatment plan and/or results with her. Treatment plan: 1) sitz baths, ice packs 2) miralax twice daily 3) oxycodone refill 4) silvadene to inner thigh with non-adherent dressing or XL band-aids 5) calmoseptine to anus at all times 6) RTC next week Risk of morbidity, mortality and/or complications of treatment plan: low I spent a total of 25 minutes on the date of the service which included preparing to see the patient, [id number] patient care, completing clinical documentation, obtaining and/or reviewing separately obtained history, performing a medically appropriate examination, counseling and educating the patient/family/caregiver, ordering medications, tests, or procedures, communicating with other HCPs (not separately reported), independently interpreting results (not separately reported), communicating results to the patient/family/caregiver, and care coordination (not separately reported). Mark Boyer MD, MS, FACS, FASCRS Inflammatory Bowel Disease Surgery Ballast Cleaning Operator Director of Research, Department of Colorectal Surgery [facility] [address] [place] [address]. [address] [address] documented in this encounter [facility] 03-13-2022 Miscellaneous Notes SPECIALTY CARE COORDINATION FOLLOW-UP NOTE Provider Action/FYI return call Patient identified by name and date of . YES Spoke to patient Summary: Advised patient that she needs to be evaluated stating she is still having pain like before and not having a regular bowel movement. Says she is going 4 days between bowel movements that are thick and pasty. Advised patient pasty bowel movements means she is probably straining to empty and she should be taking miralax daily with fiber. Will discuss further when she appoints later today in clinic Concerns: patient with thick bowel movements with continued pain after botox procedure for fissue two weeks ago [facility] plan for next outreach: Will follow up in clinic with [facility] Duckworth March 13, 2022 She needs to come back in if she is still having that much pain. She had botox and cauterization of a fissure almost two weeks ago How long did you give at the last visit? When is she scheduled to come back? Pati Bond [phone], request an extension to her leave of absence due to continuing symptoms. documented in this encounter [facility] 02-27-2022 History and physical note Images from the original note were not included. COLON AND RECTAL HISTORY AND PHYSICAL EXAMINATION SERVICE DATE: 02/27/2022 Primary Care Physician: Laney Hunter MD Chief complaint: Anal pain for 6 weeks HPI: Pati Bond is a 36 year old female with anal pain for the last 6 weeks. She says the pain is continuous, worse with defecation. Nothing improves the pain - tried suppositories, foam, sitz baths, miralax. Tried nifedipine for 4 wks q8h, w/out improvement. She was in the ED to take pain medications. Denies fever or perianal discharge. She has had a similar episode 2 years ago following her childbirth but it was not as intense. Nowadays BM every 4 days; before this pain started it used to be every 1-2 days, no straining, mostly soft. Denies any comorbidy. Denies anorectal Sx. PSHx: tonsils, gallbladder, x2. PMH: Anxiety Meds: For heartburn and anxiety - cannot remember the name. Review of Systems / PACC screen: Do you have difficulty climbing a full flight of stairs without feeling short of breath? no Do you require oxygen for your breathing or have your gone to an emergency department because of breathing problems?no Are you on dialysis or have you been told that your kidneys do not work well as they should? no Do have an implanted cardiac device (pacemaker, defibrillator etc.) that has not been checked in the last 6 months? no Have you had an organ transplant? no Have you been told that you had excessive bleeding during surgical procedures or do you take blood thinning medications other than aspirin? no Have you ever had a heart attack, heart stents/surgery, valve problems, or other heart problems? no Have you had a stroke, seizures, or unexplained loss of consciousness? no Do you have a neurologic condition like Parkinson's disease or multiple sclerosis? no Have you or a blood relative had a life-threatening reaction to anesthesia? no Do you have cirrhosis of the liver or other liver disease? no Have you had a blood clot within the past year? no Do you take insulin or other injections for diabetes? no Do you have sleep apnea or have you been told you may have sleep apnea? no Do you have other implanted devices (deep brain stimulator, spinal cord stimulator, etc.)? no Physical Exam: Ht 165.1 cm (5' 5) Wt 100.2 kg (221 lb) LMP 02/23/2022 BMI 36.78 kg/m General: Alert and oriented, No acute distress, Healthy appearance Skin: Normal color, no rash, no lesions. Cardiovascular: Normal S1 & S2, no rubs, murmurs or gallops. No JVD. Pulse regular. Lungs: Normal breath sounds, no wheezes or crackles., No chest deformities or chest wall tenderness. Abdomen: Soft, non-tender, no rigidity. Anorectal: Deferred Fissure. RYLAN deferred due to pain. 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 Treatment plan: I have reviewed with the patient their current symptoms, changes since our last visit, the above listed documents and physical exam. Based on this, the following surgery is planned: exam under anesthesia and botox application. The risks, benefits and anticipated outcomes of the procedure, the risks and benefits of the alternatives to the procedure and the roles and tasks of the personnel to be involved were discussed with the patient and the patient consents to the procedure and agrees to proceed. Informed consent has been obtained. The following details surrounding surgery were discussed: Preoperative prep: No Bowel Prep Length of hospital stay: OP Anticipated diet at time of discharge from the hospital: Regular Anticipated activity restrictions at time of discharge from the hospital: Continue all normal activities and exercise. Prior to surgery, the following consults have been requested: none ordered Prior to surgery, the following lab tests have been ordered: None Additional counseling: Patient given verbal and written preop instructions and voices comprehension and compliance. Risk of morbidity, mortality and/or complications of treatment plan: rosalia Ramon MD - Colorectal Fellow Discussed with Dr Mark Boyer 12/28/2021 - 2:11 PM [facility] STAFF PHYSICIAN NOTE OF PERSONAL INVOLVEMENT IN CARE I have reviewed the history and physical exam obtained and documented by the fellow and I personally participated in the bailey components. I have confirmed and edited as necessary, the PFSH and ROS obtained by others. I have discussed the case and management of the patient's care. The following comments revise or confirm relevant bailey components of the note. IMPRESSION: Pati Bond is a 36 year old PLAN: Dr. Terrance Ramon MD has accurately documented our encounter which we discussed and real-time and my recommendations were scribed. I spent a total of 25 minutes on the date of the service which included preparing to see the patient, [id number] patient care, completing clinical documentation, obtaining and/or reviewing separately obtained history, performing a medically appropriate examination, counseling and educating the patient/family/caregiver, ordering medications, tests, or procedures, communicating with other HCPs (not separately reported), independently interpreting results (not separately reported), communicating results to the patient/family/caregiver, and care coordination (not separately reported). Mark Boyer MD, MS, FACS, FASCRS Inflammatory Bowel Disease Surgery [employer] Cleaning Operator Director of Research, Department of Colorectal Surgery Digestive Disease [facility] Surgery [place] [facility] [address] [place] [address] documented in this encounter [facility] 02-21-2022 Miscellaneous Notes Paperwork faxed. Paperwork filled out. They were asking for a detailed list of things she couldn't do , Dr Hunter left it at unable to work. Not sure if they will accept or require an appointment to approve this. Laney Hunter MD Received attending physician statement form from [facility]. Placed in provider's inbox for review. Please note that form states Pati Mohamud, called pt and she confirmed Annie is her maiden name and Cade is her name. Pt is currently going through a divorce. Route to [place] fax documented in this encounter [facility] 02-21-2022 Nurse Note Est Pt referral for [facility] DX: [facility] Fissure Imaging 02/13/22 CT ABD/pelvis IMPRESSION: No acute abnormality. Clinical notes 02/15/22 Office Visit [facility] Chief complaint: anal pain HPI: Pati Bond is a 36 year old female who I saw in office on 01/30/22 for anal pain and internal hemorrhoids. The left lateral area of her anus was tender to touch and was unable to tolerate a RYLAN. In that case we treated patient for an anal fissure with nifedipine, stool softeners, lidocaine and sitz baths. Patient has been to the ED twice since the visit for pain one on 02/10 and the second on 02/13. A CT was done on 02/13 to rule out infection, the impression showed no acute abnormality. Her labs are shown below. She was told to follow up with colorectal surgery. Patient called the office yesterday in which I recommend she gets in to be reevaluated. She has been taking 2,000 mg Tylenol QID and Ibuprofen 1000 mg QID for the last two weeks. Today she reports: Pain: glass, shooting with nail gun, constant since after visit. 01/22, worse after bowel movement Bleeding: no more blood really BMs: 4-5 days, medium consistency Treatments: Colace- 3 pills, warm water soaks (will calm while sitting in the tub), Nifedipine (3 times a day), Lidocaine 6-7 times a day Taking percocet per ED visit Has been feeling feverish Physical Exam Anorectal: Perianal skin is intact. No erythema, induration or excoriation. No fissure, fistula or external hemorrhoids. Perianal skin tags that are tender to touch with q-tip Digital Rectal Exam: Unable to tolerate exam Assessment & Diagnosis: Pati Bond is a 36 year old female with anal pain here for a follow up after going to the emergency room twice since our last visit. Anal fissures take a long time to heal and I made sure the patient understood. I would like patient to continue to treatment for anal fissure with Nifedipine, lidocaine and sitz baths. Encouraged patient to get her stools softer. Told her to use Miralax daily versus the colace tablets. As well as keeping up with fluid intake. To help relax the muscles, Valium suppositories were prescribed to help promote the fissure to heal. If things get worse within the next few weeks, we can talk to one of the surgeons about getting an EUA. Will have patient follow back up on 03/06. Treatment plan: Miralax daily Squatty potty Nifedipine 3x daily Lidocaine as Needed Tylenol and Motrin Valium suppositories up to twice a day Warm water soaks Will re-evaluate in a few weeks documented in this encounter [facility] 02-15-2022 Instructions Pati Chopra PA-C - 02/15/2022 11:01 AM EDT - Valium Suppositories up to twice a day to help relax muscles - Use Miralax over Colace daily to soften stool - Warm water soaks - Lidocaine -Nifedipine documented in this encounter [facility] 02-15-2022 History of Present illness Narrative COLORECTAL SURGERY Follow-up February 15, 2022 Chief complaint: anal pain HPI: Pati Bond is a 36 year old female who I saw in office on 01/30/22 for anal pain and internal hemorrhoids. The left lateral area of her anus was tender to touch and was unable to tolerate a RYLAN. In that case we treated patient for an anal fissure with nifedipine, stool softeners, lidocaine and sitz baths. Patient has been to the ED twice since the visit for pain one on 02/10 and the second on 02/13. A CT was done on 02/13 to rule out infection, the impression showed no acute abnormality. Her labs are shown below. She was told to follow up with colorectal surgery. Patient called the office yesterday in which I recommend she gets in to be reevaluated. She has been taking 2,000 mg Tylenol QID and Ibuprofen 1000 mg QID for the last two weeks. Today she reports: Pain: glass, shooting with nail gun, constant since after visit. 01/22, worse after bowel movement Bleeding: no more blood really BMs: 4-5 days, medium consistency Treatments: Colace- 3 pills, warm water soaks (will calm while sitting in the tub), Nifedipine (3 times a day), Lidocaine 6-7 times a day Taking percocet per ED visit Has been feeling feverish WBC (k/uL) Date Value 02/13/2022 6.58 RBC (m/uL) Date Value 02/13/2022 4.33 Hemoglobin (g/dL) Date Value 02/13/2022 9.9 (L) Hematocrit (%) Date Value 02/13/2022 31.7 (L) MCV (fL) Date Value 02/13/2022 73.2 (L) MCH (pg) Date Value 02/13/2022 22.9 (L) MCHC (g/dL) Date Value 02/13/2022 31.2 RDW-CV (%) Date Value 02/13/2022 17.7 (H) Platelet Count (k/uL) Date Value 02/13/2022 276 MPV (fL) Date Value 02/13/2022 9.8 Glucose (mg/dL) Date Value 02/13/2022 110 (H) BUN (mg/dL) Date Value 02/13/2022 17 Creatinine (mg/dL) Date Value 02/13/2022 0.77 Sodium (mmol/L) Date Value 02/13/2022 139 Potassium (mmol/L) Date Value 02/13/2022 4.3 Chloride (mmol/L) Date Value 02/13/2022 105 CO2 (mmol/L) Date Value 02/13/2022 24 Protein, Total (g/dL) Date Value 02/13/2022 7.6 Albumin (g/dL) Date Value 02/13/2022 4.3 Calcium, Total (mg/dL) Date Value 02/13/2022 9.0 Alkaline Phosphatase (U/L) Date Value 02/13/2022 66 Bilirubin, Total (mg/dL) Date Value 02/13/2022 0.4 AST (U/L) Date Value 02/13/2022 9 (L) ALT (U/L) Date Value 02/13/2022 23 FLEX (no units) Date Value 09/15/2020 Positive (A) Hep C Antibody IA (no units) Date Value 09/15/2020 Negative URINALYSIS Specific [place], Ur Date Value Ref Range Status 02/13/2022 >=1.030 (H) 1.005 - 1.030 Final Glucose, Urine Date Value Ref Range Status 02/13/2022 Negative Negative Final Bilirubin, Urine Date Value Ref Range Status 02/13/2022 Negative Negative Final Ketones, Urine Date Value Ref Range Status 02/13/2022 Negative Negative Final Hemoglobin/Blood,Ur Date Value Ref Range Status 02/13/2022 Negative Negative Final Protein, Urine Date Value Ref Range Status 02/13/2022 Negative Negative Final Urobilinogen, Urine Date Value Ref Range Status 03/04/2013 0.2 0.0 - 1.0 EU/dL Final WBC, Urine Date Value Ref Range Status 02/13/2022 0-5 /HPF 0-5 /HPF Final Physical Exam: Ht 165.1 cm (5' 5) Wt 102.3 kg (225 lb 8 oz) LMP 01/16/2022 BMI 37.53 kg/m General - awake, alert, no acute distress Anorectal: Perianal skin is intact. No erythema, induration or excoriation. No fissure, fistula or external hemorrhoids. Perianal skin tags that are tender to touch with q-tip Digital Rectal Exam: Unable to tolerate exam Computer Publisher: Jesus RN and Allyson Martinez [employer] Assessment Medical Decision Making: Assessment & Diagnosis: Pati Bond is a 36 year old female with anal pain here for a follow up after going to the emergency room twice since our last visit. Anal fissures take a long time to heal and I made sure the patient understood. I would like patient to continue to treatment for anal fissure with Nifedipine, lidocaine and sitz baths. Encouraged patient to get her stools softer. Told her to use Miralax daily versus the colace tablets. As well as keeping up with fluid intake. To help relax the muscles, Valium suppositories were prescribed to help promote the fissure to heal. If things get worse within the next few weeks, we can talk to one of the surgeons about getting an EUA. Will have patient follow back up on 03/06. Data Reviewed: Tests & Documents Reviewed/ordered: Review of prior notes from [facility] Review of Imaging: CT Abdomen, CT Pelvis I have discussed Pati Bond's treatment plan and/or results with patient. Treatment plan: Miralax daily Squatty potty Nifedipine 3x daily Lidocaine as Needed Tylenol and Motrin Valium suppositories up to twice a day Warm water soaks Will re-evaluate in a few weeks Pati Chopra PA-C Colorectal Surgery Risk of morbidity, mortality and/or complications of treatment plan: low I spent a total of 35 minutes on the date of the service which included preparing to see the patient, [id number] patient care, completing clinical documentation, obtaining and/or reviewing separately obtained history, performing a medically appropriate examination, counseling and educating the patient/family/caregiver, ordering medications, tests, or procedures and communicating with other HCPs (not separately reported). documented in this encounter [facility] 02-14-2022 Miscellaneous Notes I talked to Fanny and also talked to Dr. Hunter, Fanny is quite concerned about her missing work a lot in last two weeks due to her severe hemorrhoids and she will call us after this appointment. Evelyn Nieto ----- Message from Samira Reddy sent at 02/13/2022 8:13 AM EDT ----- Patient has been identified by name and Date of : Yes Patient: Pati Bond Date of : 1985 Provider for this encounter : Laney Hunter MD or any open provider Reason for call: Same Day Access Was an appointment scheduled: No Reason for requesting visit (RFV/signs and symptoms/diagnosis) : Hemorrhoid follow up Person calling: self Return call to: self Call patient at: on cell [phone] (home) [phone] (cell) Payor: [facility] MEDICAID / Plan: [facility] MEDICAID / Product Type: Medicaid / Samira Reddy documented in this encounter [facility] 02-14-2022 Miscellaneous Notes I touched base with Dr. Hunter about Fanny and her concern about missing so much work early in a new job due to her extremely painful hemorrhoids. She is having a surgical consultation at [facility] tomorrow AM. She will call us when it is completed, and request a work excuse She has been having trouble all of last week as well as this week, extremely painful with several ED visits. Dr. Hunter recommended that after that visit, we could review the general surgery visit and then assist her with a note most likely without her needing an additional office appointment. Thank you, Evelyn Nieto documented in this encounter [facility] 02-14-2022 Miscellaneous Notes Patient called, she went to the ED last night. Patient complains that her rectal pain is unbearably painful, unable to go to work, nothing is helping, using all the creams , unable to take care of her daughters. Offered to see patient in office tomorrow to evaluate and decide if anything else needs to be done. Pati Chopra PA-C Pati Bond [phone], went to the ED last night was told to contact you today. Experiencing pain, fever & chills. documented in this encounter [facility] 02-13-2022 History of Present illness Narrative Pt presented to c/o rectal and abdominal pain r/t to her hiatal hernia and known hemorrhoids. She has been seen a few times for these concerns but not cheng able to find relief. She has been taking 2000 mg of tylenol and 1000mg of advil at a time trying to find pain relief. She is tearful and leaning to the side in exam chair d/t pain. She also reports fever and chills . Pt has been recently seen in ED and also by colorectal and expresses that she has reach to her team and has not received any guidance. I recommend patient present to ED for evaluation. She agrees. Hill Sandoval APRN.ARPIT documented in this encounter [facility] 02-13-2022 Miscellaneous Notes Received ED summary for hemorrhoid from [facility]. Placed in provider's inbox for review. Route to [place] scanning. documented in this encounter [facility] 01-30-2022 Instructions Pati Chopra PA-C - 01/30/2022 3:34 PM EDT - Make sure to keep stools soft by taking stool softeners such as Miralax and Colace - Avoid straining as much as you can - Nifedipine ointment to be used 3 times daily in and around your anus - Nifedipine ointment needs to be filled at a compounding pharmacy - Lidocaine cream sent to your pharmacy - Can use Lidocaine cream as needed - Warm water soaks, at least twice daily, and after bowel movements - Can take Tylenol and Motrin around the clock. Each can be taken every 6 hours so can alternate - Will follow up in 5 weeks to see if pain is better, if pain is not better will discuss getting you in with a surgeon for an exam under anesthesia documented in this encounter [facility] 01-30-2022 History and physical note COLORECTAL SURGERY Consult Pati Bond 36 year old This consult was requested by Dr. Hunter and my final recommendations will be communicated to the requesting health care provider by way of the shared medical record for internal providers or letter via the [employer] for external providers. Chief Complaint: Hemorrhoids History of Present Illness: Onset: off and on for the past few years. Past month has not gone away Lumps/lesions near the anus: yes Tissue/hemorrhoid prolapsing from anus: thinks they pop in and out Rectal pain: feels like someone is taking a nail gun and shooting you, knife like, burning. Hurts so bad to go to the bathroom. Pretty constant. Rectal bleeding: once or twice about a week ago, bright red, a little amount Attempted txs: Sitz baths: yes, helps in the moment HC: Anusol OTC: tried creams from store, didn't help BMs: Frequency: once every 4 days due to pain of bowel movements Consistency: soft and formed, says it is her normal Laxatives/bowel regimen: no Sitting on toilet for prolonged period of time: no Straining during BMs: no Overall getting better/worse/staying the same: feels like it is getting worse Previous anorectal surgery or invasive procedures: no Family hx of Crohns/UC/colitis: maternal side may have Crohns Family of colon or rectal cancer: not that she is aware of Colonoscopy/flex sigmoidoscopy in the past: believes she did in 2007, unsure Dr. Hunter, office visit, 01/10/22: HISTORY OF PRESENT ILLNESS Pati Bond is a 36 year old female who presents here today for evaluation of hemorrhoids. I last saw this patient on 10/19/20. Hemorrhoids Patient has regular bowel movements. She notes having hemorrhoids since her . Her bowel movements are not hard, but she sees blood. Patient was seen at the ER yesterday for rectal pain PAST MEDICAL HISTORY Diagnosis Date Anemia Morbid obesity (HCC) PAST SURGICAL HISTORY Procedure Laterality Date ANESTH, SECTION 2005, 2010twice CHOLECYSTECTOMY HIATAL HERNIA REPAIR HX ORAL SURGERY PROCEDURE Current Outpatient Medications Medication Sig Dispense Refill pramoxine-hydrocortisone (PROCTOFOAM HC) rectal foam 1 Applicator by RECTAL route twice daily. 10 g 2 sertraline (ZOLOFT) 50 mg tablet PHENYLephrine-cocoa butter (PREPARATION H) 0.25-88.44 % supp Phenylephrine Hcl/[place] Butter Active 1 EA EVERY 8 HOURS NEEDED December 23, 2018 11:21am naproxen (NAPROSYN) 500 mg tablet Take by mouth. LORazepam (ATIVAN) 0.5 mg Take by mouth. lidocaine 4 % gel Apply to affected area. ibuprofen (MOTRIN) 600 mg tablet TAKE 1 TABLET BY MOUTH EVERY 6 TO 8 HOURS NEEDED FOR PAIN. MAX 3200MG PER DAY hydrocortisone (ANUSOL-HC) 2.5 % rectal cream by RECTAL route twice daily. 28 g 1 busPIRone (BUSPAR) 10 mg tablet TAKE 1 TABLET BY MOUTH TWICE A DAY (Patient taking differently: 10 mg as needed. ) 60 tablet 2 omeprazole magnesium (PRILOSEC ORAL) Take by mouth. cetirizine (ZYRTEC) 10 mg tablet Take 1 tablet by mouth once daily. 30 tablet 2 clobetasol (TEMOVATE) 0.05 % cream (Patient not taking: Reported on 01/30/2022 ) raNITIdine (ZANTAC) 150 mg tablet Ranitidine Active 150 MG DAILY June 23, 2019 3:18am (Patient not taking: Ranitidine Active 150 MG DAILY June 23, 2019 3:18am) ferrous sulfate 325 mg (65 mg iron) tablet TAKE 1 TABLET BY MOUTH TWICE A DAY WITH MEALS (Patient not taking: TAKE 1 TABLET BY MOUTH TWICE A DAY WITH MEALS) 60 tablet 2 amitriptyline (ELAVIL) 10 mg tablet TAKE 1 TABLET BY MOUTH EVERYDAY AT BEDTIME (Patient not taking: TAKE 1 TABLET BY MOUTH EVERYDAY AT BEDTIME) 30 tablet 1 dupilumab (DUPIXENT) 300 mg/2 mL pen Inject subcutaneously every 2 weeks. (Patient not taking: Reported on 01/30/2022 ) hydrOXYzine HCl (ATARAX) 25 mg tablet Take one tablet by mouth for one dose 1 hour prior to dental procedure for anxiety. (Patient not taking: Reported on 01/10/2022 ) 1 tablet 0 triamcinolone acetonide topical 0.5 % ointment Apply to affected area twice daily. (Patient not taking: Reported on 01/30/2022 ) 30 g 2 VIT/IRON FUM/FOLIC AC ( VITAMIN ORAL) Take 1 tablet by mouth once daily. (Patient not taking: Reported on 01/10/2022 ) CALCIUM PHOSPHATE DIBAS/VIT D3 (VITAMIN D, WITH CALCIUM, ORAL) Take 2,000 Int'l Units by mouth once daily. (Patient not taking: Reported on 09/05/2021 ) PYRIDOXINE HCL, VITAMIN B6, (PYRIDOXINE, VITAMIN B6, ORAL) Take by mouth three times daily. (Patient not taking: Reported on 01/10/2022 ) No current facility-administered medications for this visit. ALLERGIES No Known Allergies FAMILY HISTORY Family history unknown: Yes Social History Tobacco Use Smoking status: Former Smoker Types: Cigarettes Quit date: 05/2017 Years since quittin.7 Smokeless tobacco: Never Used Tobacco comment: smoked for 3 months Vaping Use Vaping Use: Never used Substance Use Topics Alcohol use: No Drug use: No Review of Systems: A 14 point review of systems was performed. All other systems are negative, other than stated above and HPI. Physical Exam: BP 128/76 Pulse 71 Temp 36.6 C (97.9 F) Resp 16 Ht 165.1 cm (5' 5) Wt 103.4 kg (228 lb) LMP 01/16/2022 SpO2 99% BMI 37.94 kg/m General Appearance: Well appearing, alert, in no acute distress, well-hydrated, well nourished. Rectal: In the knee-chest position, buttocks gently effaced, perianal skin without lesion(s) and skin changes. External hemorrhoids are moderately large in size and are not acutely thrombosed Fissure/abscess/fistula/lesion: absent, position: N/A. Tender to touch with Q-tip Ieft lateral RYLAN: Unable to tolerate Computer Publisher present: Yes, Delia Fisher Diagnostic tests reviewed for today's visit: none All outside imaging and records were reviewed with the patient during consultation. Assessment Assessment and Plan: Pati Bond is a 36 year old female who presents with rectal pain that she has had for years but has recently gotten worse in the past month. She has tried several OTC treatments as well as hydrocortisone prescribed by her PCP. On exam patient has external hemorrhoidal complex that is not acutely thrombosed. Area is tender to touch but unable to do a RYLAN or scope due to pain. Highly suspicious for anal fissure. Will treat as if it is an anal fissure with Nifedipine ointment, lidocaine, warm water soaks and stool softeners. Patient will return in 5 weeks for reassessment. If symptoms have not gotten any better can consider getting in with a surgeon for an exam under anesthesia. But will try conservative measures for now. Pati Chopra PA-C Colorectal Surgery I spent a total of 40 minutes on the date of the service which included preparing to see the patient, [id number] patient care, completing clinical documentation, obtaining and/or reviewing separately obtained history, performing a medically appropriate examination, counseling and educating the patient/family/caregiver, ordering medications, tests, or procedures and communicating with other HCPs (not separately reported). documented in this encounter [facility] 01-20-2022 Miscellaneous Notes Addended by: RICHARD HUNTER on: 01/20/2022 04:56 PM Modules accepted: Orders The following approved medication requests have been transmitted electronically. Signed Prescriptions Disp Refills pramoxine-hydrocortisone (PROCTOFOAM HC) rectal foam 10 g 2 Si Applicator by RECTAL route twice daily. Also advise gen surg consult for the hemorrhoid. Shouldn't be this bad for this ling. Laney Hunter MD Reason for Disposition [1] Caller requesting NON-URGENT health information AND [2] PCP's office is the best resource Answer Assessment - Initial Assessment Questions 1. REASON FOR CALL or QUESTION:Patient still having a lot of pain from her Hemorrhoids which she states are internal and external. Was seen in PCP office on 01/10, she has tried the creams prescribed, sitz baths, per patient, everything he told me to do. Patient called off work today d/t the pain, states, it feels like someone is stabbing a knife into the area. Patient asking if the Proctofoam can be prescribed again, states she was advised she would have to try 2 other prescribed tx before they would cover it, states she has tried what was prescribed without relief. Advised if a PA needs to be done it would not get done today but the information would be sent to her provider. Please advise. Protocols used: INFORMATION ONLY CALL - NO [id number] documented in this encounter [facility] 01-10-2022 Miscellaneous Notes Received ED summary for rectal pain from [facility]. Placed in provider's inbox for review. Route to [place] scanning. documented in this encounter [facility] 01-09-2022 Miscellaneous Notes Received a phone call from patient saying that she was seen in ER at [facility]. Patient was prescribed proctofoam, which her insurance does not cover. Pharmacist told patient to contact her PCP regarding the denial of the medication. Please return call. documented in this encounter [facility] 09-05-2021 History of Present illness Narrative Radiology Service Progress Note PATIENT NAME: Pati Bond DATE OF SERVICE: September 05, 2021 TIME: 8:50 AM PATIENT IDENTITY VERIFICATION COMPLETED USING TWO (2) IDENTIFIERS: Name and Date of confirmed by patient verbally. FALL SCREENING: Has the patient had 2 falls in the last year or 1 fall with injury or currently using an Ambulatory Assistive Device (Walker, Cane, Wheelchair, Crutches, etc.)? No PATIENT GENDER DATA: Female. status: : No status: NO. PATIENT RELEVANT IMPLANT DATA REVIEWED: Yes RADIOLOGY DEPARTMENT: General X-ray: Exam(s) Completed: Spine X-Ray(s): Sacrum/Coccyx PERIPHERAL IV DATA: Not applicable SIGNED BY: RT Lawanda(R) September 05, 2021 8:50 AM documented in this encounter [facility] 10-01-2017 History of Past i llness Narrative Problem Noted Date Resolved Date Premature rupture of membranes 10/01/2017 0 02/10/2018 Vaginal bleeding 10/01/2017 02/10/2018 documented as of this encounter (statuses as of 01/10/2022) [facility]03-19-2018 History of Past illness Narrative* Problem Noted Date Resolved Date Premature rupture of membranes 10/01/2017 0 02/10/2018 Vaginal bleeding 10/01/2017 02/10/2018 documented as of this encounter (statuses as of 01/10/2022) [facility]2018 History of Past illness Narrative* Problem Noted Date Resolved Date Premature rupture of membranes 10/01/2017 0 02/10/2018 Vaginal bleeding 10/01/2017 02/10/2018 documented as of this encounter (statuses as of 01/20/2022) [facility]2018 History of Past illness Narrative* Problem Noted Date Resolved Date Premature rupture of membranes 10/01/2017 0 02/10/2018 Vaginal bleeding 10/01/2017 02/10/2018 documented as of this encounter (statuses as of 01/30/2022) [facility]2018 History of Past illness Narrative* Problem Noted Date Resolved Date Premature rupture of membranes 10/01/2017 0 02/10/2018 Vaginal bleeding 10/01/2017 02/10/2018 documented as of this encounter (statuses as of 02/13/2022) [address]19-2018 History of Past illness Narrative* Problem Noted Date Resolved Date Premature rupture of membranes 10/01/2017 0 02/10/2018 Vaginal bleeding 10/01/2017 02/10/2018 documented as of this encounter (statuses as of 02/13/2022) [address]19-2018 History of Past illness Narrative* Problem Noted Date Resolved Date Premature rupture of membranes 10/01/2017 0 02/10/2018 Vaginal bleeding 10/01/2017 02/10/2018 documented as of this encounter (statuses as of 02/14/2022) [address]19-2018 History of Past illness Narrative* Problem Noted Date Resolved Date Premature rupture of membranes 10/01/2017 0 02/10/2018 Vaginal bleeding 10/01/2017 02/10/2018 documented as of this encounter (statuses as of 02/15/2022) [address]19-2018 History of Past illness Narrative* Problem Noted Date Resolved Date Premature rupture of membranes 10/01/2017 0 02/10/2018 Vaginal bleeding 10/01/2017 02/10/2018 documented as of this encounter (statuses as of 02/20/2022) [address]19-2018 History of Past illness Narrative* Problem Noted Date Resolved Date Premature rupture of membranes 10/01/2017 0 02/10/2018 Vaginal bleeding 10/01/2017 02/10/2018 documented as of this encounter (statuses as of 02/21/2022) [address]19-2018 History of Past illness Narrative* Problem Noted Date Resolved Date Premature rupture of membranes 10/01/2017 0 02/10/2018 Vaginal bleeding 10/01/2017 02/10/2018 documented as of this encounter (statuses as of 02/21/2022) [address]19-2018 History of Past illness Narrative* Problem Noted Date Resolved Date Premature rupture of membranes 10/01/2017 0 02/10/2018 Vaginal bleeding 10/01/2017 02/10/2018 documented as of this encounter (statuses as of 02/27/2022) [address]19-2018 History of Past illness Narrative* Problem Noted Date Resolved Date Premature rupture of membranes 10/01/2017 0 02/10/2018 Vaginal bleeding 10/01/2017 02/10/2018 documented as of this encounter (statuses as of 03/13/2022) [address]19-2018 History of Past illness Narrative* Problem Noted Date Resolved Date Premature rupture of membranes 10/01/2017 0 02/10/2018 Vaginal bleeding 10/01/2017 02/10/2018 documented as of this encounter (statuses as of 03/14/2022) [address]19-2018 History of Past illness Narrative* Problem Noted Date Resolved Date Premature rupture of membranes 10/01/2017 0 02/10/2018 Vaginal bleeding 10/01/2017 02/10/2018 documented as of this encounter (statuses as of 03/21/2022) [address]19-2018 History of Past illness Narrative* Problem Noted Date Resolved Date Premature rupture of membranes 10/01/2017 0 02/10/2018 Vaginal bleeding 10/01/2017 02/10/2018 documented as of this encounter (statuses as of 03/27/2022) [address]19-2018 History of Past illness Narrative* Problem Noted Date Resolved Date Premature rupture of membranes 10/01/2017 0 02/10/2018 Vaginal bleeding 10/01/2017 02/10/2018 documented as of this encounter (statuses as of 03/30/2022) [address]19-2018 History of Past illness Narrative* Problem Noted Date Resolved Date Premature rupture of membranes 10/01/2017 0 02/10/2018 Vaginal bleeding 10/01/2017 02/10/2018 documented as of this encounter (statuses as of 03/31/2022) [address]19-2018 History of Past illness Narrative* Problem Noted Date Resolved Date Premature rupture of membranes 10/01/2017 0 02/10/2018 Vaginal bleeding 10/01/2017 02/10/2018 documented as of this encounter (statuses as of 04/03/2022) [address]19-2018 History of Past illness Narrative* Problem Noted Date Resolved Date Premature rupture of membranes 10/01/2017 0 02/10/2018 Vaginal bleeding 10/01/2017 02/10/2018 documented as of this encounter (statuses as of 04/05/2022) [address]19-2018 History of Past illness Narrative* Problem Noted Date Resolved Date Premature rupture of membranes 10/01/2017 0 02/10/2018 Vaginal bleeding 10/01/2017 02/10/2018 documented as of this encounter (statuses as of 04/24/2022) [address]19-2018 History of Past illness Narrative* Problem Noted Date Resolved Date Premature rupture of membranes 10/01/2017 0 02/10/2018 Vaginal bleeding 10/01/2017 02/10/2018 documented as of this encounter (statuses as of 04/24/2022) [address]19-2018 History of Past illness Narrative* Problem Noted Date Resolved Date Premature rupture of membranes 10/01/2017 0 02/10/2018 Vaginal bleeding 10/01/2017 02/10/2018 documented as of this encounter (statuses as of 04/24/2022) [address]19-2018 History of Past illness Narrative* Problem Noted Date Resolved Date Premature rupture of membranes 10/01/2017 0 02/10/2018 Vaginal bleeding 10/01/2017 02/10/2018 documented as of this encounter (statuses as of 04/24/2022) [address]19-2018 History of Past illness Narrative* Problem Noted Date Resolved Date Premature rupture of membranes 10/01/2017 0 02/10/2018 Vaginal bleeding 10/01/2017 02/10/2018 documented as of this encounter (statuses as of 04/28/2022) [address]19-2018 History of Past illness Narrative* Problem Noted Date Resolved Date Premature rupture of membranes 10/01/2017 0 02/10/2018 Vaginal bleeding 10/01/2017 02/10/2018 documented as of this encounter (statuses as of 05/04/2022) [address]19-2018 History of Past illness Narrative* Problem Noted Date Resolved Date Premature rupture of membranes 10/01/2017 0 02/10/2018 Vaginal bleeding 10/01/2017 02/10/2018 documented as of this encounter (statuses as of 06/01/2022) [address]19-2018 History of Past illness Narrative* Problem Noted Date Resolved Date Premature rupture of membranes 10/01/2017 0 02/10/2018 Vaginal bleeding 10/01/2017 02/10/2018 documented as of this encounter (statuses as of 06/01/2022) [address]19-2018 History of Past illness Narrative* Problem Noted Date Resolved Date Premature rupture of membranes 10/01/2017 0 02/10/2018 Vaginal bleeding 10/01/2017 02/10/2018 documented as of this encounter (statuses as of 11/14/2022) [address]19-2018 History of Past illness Narrative* Problem Noted Date Diagnosed Date Resolved Date Premature rupture of membranes 10/01/2017 02/10/2018 Vaginal bleeding 10/01/2017 02/10/2018 documented as of this encounter (statuses as of 01/24/2023) [address]19-2018 History of Past illness Narrative* Problem Noted Date Diagnosed Date Resolved Date Premature rupture of membranes 10/01/2017 02/10/2018 Vaginal bleeding 10/01/2017 02/10/2018 documented as of this encounter (statuses as of 01/27/2023) [address]19-2018 History of Past illness Narrative* Problem Noted Date Diagnosed Date Resolved Date Premature rupture of membranes 10/01/2017 02/10/2018 Vaginal bleeding 10/01/2017 02/10/2018 documented as of this encounter (statuses as of 02/26/2023) [address]19-2018 History of Past illness Narrative* Problem Noted Date Diagnosed Date Resolved Date Premature rupture of membranes 10/01/2017 02/10/2018 Vaginal bleeding 10/01/2017 02/10/2018 documented as of this encounter (statuses as of 02/26/2023) [address]19-2018 History of Past illness Narrative* Problem Noted Date Diagnosed Date Resolved Date Premature rupture of membranes 10/01/2017 02/10/2018 Vaginal bleeding 10/01/2017 02/10/2018 documented as of this encounter (statuses as of 06/22/2023) [address]19-2018 History of Past illness Narrative* Problem Noted Date Diagnosed Date Resolved Date Premature rupture of membranes 10/01/2017 02/10/2018 Vaginal bleeding 10/01/2017 02/10/2018 documented as of this encounter (statuses as of 08/20/2023) [address]19-2018 History of Past illness Narrative* Problem Noted Date Diagnosed Date Resolved Date Premature rupture of membranes 10/01/2017 02/10/2018 Vaginal bleeding 10/01/2017 02/10/2018 documented as of this encounter (statuses as of 08/23/2023) [address]19-2018 History of Past illness Narrative* Problem Noted Date Diagnosed Date Resolved Date Premature rupture of membranes 10/01/2017 02/10/2018 Vaginal bleeding 10/01/2017 02/10/2018 documented as of this encounter (statuses as of 08/23/2023) [facility]-2018 History of Past illness Narrative* Problem Noted Date Diagnosed Date Resolved Date Premature rupture of membranes 10/01/2017 02/10/2018 Vaginal bleeding 10/01/2017 02/10/2018 documented as of this encounter (statuses as of 08/23/2023) [facility]2018 History of Past illness Narrative* Problem Noted Date Diagnosed Date Resolved Date Premature rupture of membranes 10/01/2017 02/10/2018 Vaginal bleeding 10/01/2017 02/10/2018 documented as of this encounter (statuses as of 08/24/2023) [facility]2018 History of Past illness Narrative* Problem Noted Date Diagnosed Date Resolved Date Premature rupture of membranes 10/01/2017 02/10/2018 Vaginal bleeding 10/01/2017 02/10/2018 documented as of this encounter (statuses as of 08/27/2023) [facility] Ambriz [facility] Note Date/Time March 12, 2025 11 :52am [facility] Medical Records Department [address] [place] [address] Emergency Department Summary 03/12/25 MR#: [id number] Acct: [id number] Name: PATI BOND Rep #:[id number] : 1985 39 From: Irena Ambriz MD PCP: Dr. Richard Hunter MD Status:[facility] ER Location: ED HPI HPI - GI History of Present Illness Chief Complaint: Abd Pain Narrative Narrative: Patient is a 39-year-old female presenting to the emergency department for periumbilical and right lower quadrant pain that started a few weeks ago. Reports that over the past 2 days the pain has been worse. She states it initially started with pain around her periumbilical region but is now located mainly in the right lower quadrant. She endorses urinary frequency, no dysuria or hematuria. Reports her last menstrual cycle was last week but was jewel bearing facer than usual. Endorses a low- grade fever of 100.5 at home this morning. She tookTylenol prior to arrival. She denies sore throat, cough, chest pain or shortness of breath. Endorses nausea with no vomiting. Denies any vaginal discharge, abnormal bleeding, vaginal/pelvic pain. Denies concern for STDs. Past abdominal surgical history of 3 sections and cholecystectomy. [facility] Medical History Fibromyalgia Hemorrhoids Acid reflux Constipation Diarrhea Nausea and vomiting Anxiety Hypokalemia Dehydration 15 weeks gestation of Threatened in second trimester Gastroenteritis Home Medications ?Medication ?Instructions ?Recorded ?Last Taken ?Type amitriptyline 10 mg tablet 10 mg PO DAILY 12/02/20 Unk nown History duloxetine 20 mg capsule,delayed 20 mg PO DAILY Unknown History release (Cymbalta) dupilumab 300 mg/2 mL subcutaneous 300 mg subcut QWEEK 12/02/20 Unknown History pen injector (Dupixent) hydroxyzine HCl 25 mg tablet 25 mg PO DAILY 12/02/20 U nknown History naproxen 500 mg tablet (Naprosyn) 500 mg PO BID #20 ta bs 12/02/20 Unknown Rx omeprazole magnesium 20 mg 20 mg PO DAILY 12/02/20 Unk nown History tablet,delayed release (Prilosec OTC) hydrocortisone 1 %-pramoxine 1 % 1 applic [place] BID PRN h emorrhoids 01/09/22 Unknown Rx rectal foam (Proctofoam HC) #10 grams lidocaine 4 % topical gel 1 applic topical TID PRN nadeen n #30 01/09/22 Unknown Rx grams hydrocortisone 2.5 % topical cream 1 applic [place] DAILY P RN hemorrhoids 02/10/22 Unknown Rx with perineal applicator #30 grams (Anusol-HC) hydrocodone-homatropine 5 mg-1.5 5 ml PO 4X/DAY PRN AZ N cough 7 02/24/23 Unknown Rx mg/5 mL (5 mL) oral solution days #140 mL (Hycodan) prednisone 20 mg tablet 40 mg (2 x 20 mg) PO DAILY 5 days 02/24/23 Unknown Rx #10 tabs ondansetron 4 mg disintegrating 4 mg PO Q8H PRN nausea and 12/26/23 Unknown Rx tablet vomiting #12 tabs naproxen 500 mg tablet (Naprosyn) 500 mg PO BID PRN pa in #20 tabs 07/05/24 Unknown Rx penicillin V potassium 500 mg 500 mg PO 4X/DAY #40 tab s 07/05/24 Unknown Rx tablet Allergy/AdvReac Type Severity Reaction Status Date / Time No Known Allergies Allergy Verified 03/12/25 08:35 Family History Father Thyroid disorder Surgical History H/O: History of cholecystectomy Social History Smoking Status: Never smoker alcohol intake: never substance use type: does not use ROS ROS ED ROS Narrative See HPI EXAM Physical Exam Narrative Exam Narrative: Vital signs: Reviewed General: Alert and oriented. No acute distress HEENT: Head is normocephalic and atraumatic, sinuses nontender, pupils equal round and reactive. Nares are patent. Oropharynx and throat exams normal. Neck: Supple without lymphadenopathy nontender Cardiovascular: Regular rate and rhythm, no murmurs. No rubs or gallops. Normal S1 and S2 Respiratory: Clear to auscultation bilaterally. No wheezes, rales, rhonchi Abdominal: Soft and tenderness to palpation in the periumbilical and right lowerquadrant. Normal bowel sounds. No guarding or rebound. No CVA tenderness to palpation. Extremities: No tenderness. No bruising. Normal range of motion. Normal sensation. Skin: No rash or redness. Neurological: Cranial nerves II through XII are grossly intact. Normal strengthand sensation. Normal cerebellar function The rest of the physical exam is unremarkable Const Vital Signs: 03/12/25 08:34 03/12/25 10:51 Temperature 97.9 F Temperature Source Temporal Pulse Rate 88 57 L Respiratory Rate 14 16 Blood Pressure 152/90 H 110/68 Blood Pressure Mean 110 82 Pulse Ox 98 100 Oxygen Delivery Method Room Air Room Air MDM MDM MDM Narrative Medical decision making narrative: Patient is a 39-year-old female presenting to the emergency department for abdominal pain and nausea. Patient was seen and examined. Vitals are stable. Patient resting bed comfortably in no acute distress. Differential includes but is not limited to: Appendicitis, gastroenteritis, UTI,colitis Patient offered analgesia, declines at this time. She was given Zofran. Labs and CT imaging ordered. CBC with no leukocytosis and a normal hemoglobin. CMP without significant abnormalities. Urinalysis with no evidence of infection. Urine negative. CT shows an enlarged appendix at 1.1 cm with no evidence of inflammation or rupture. There is a 3.5 cm cyst or follicle on the right ovary as well. Patient reevaluated. Updated on the findings. Patient isendorsing increased pain and nausea. Morphine and zofran given. Spoke to anival, Dr. Justin, who evaluated the patient in the ED. Will admit for appendectomy likely later today given the CT findings and her symptoms. History & Record Review Discussion w/independent historian: Patient Lab Data Attestation: I reviewed the patient's lab results. Labs: Laboratory Results - last 24 hr 03/12/25 03/12/25 08:39 09:20 WBC 7.1 RBC 4.69 Hgb 14.7 Hct 41.5 MCV 88.5 MCH 31.3 MCHC 35.4 RDW Std Deviation 41.1 RDW Coeff of Onel 12.8 Plt Count 196 MPV 10.5 Immature Gran % (Auto) 0.300 Neut % (Auto) 67.5 Lymph % (Auto) 24.8 Sanders % (Auto) 5.3 Eos % (Auto) 1.7 Baso % (Auto) 0.4 Absolute Neuts (auto) 4.8 Absolute Lymphs (auto) 1.76 Nucleated RBC % 0 Sodium 138 Potassium 3.8 Chloride 108 Carbon Dioxide 19.6 L Anion Gap 10 BUN 9 Creatinine 0.71 Estim Creat Clear Calc 131.53 Est GFR (MDRD) Non-Af 113 BUN/Creatinine Ratio 12.4 Glucose 83 Calcium 9.0 Total Bilirubin 0.48 AST 15 ALT 9 Alkaline Phosphatase 77 Total Protein 7.1 Albumin 4.4 Globulin 2.7 Albumin/Globulin Ratio 1.6 Lipase 40 Urine Color Yellow Urine Clarity Sl. Cloudy Urine pH 6.0 Ur Specific [place] 1.025 Urine Protein 30 H Urine Glucose (UA) Normal Urine Ketones 5 H Urine Occult Blood 10 H Urine Nitrite Negative Urine Bilirubin Negative Urine Urobilinogen 1 H Ur Leukocyte Esterase Negative Urine RBC 0 SEEN Urine WBC 0 SEEN Ur Squamous Epith Cells 0-5 SEEN Urine Bacteria 1+ Urine Mucus 1+ Urine Test Negative Radiography Diagnostic Testing: Clinical Impression(s) from Imaging Studies Abdomen/Pelvis CT 03/12/25 10:00 IMPRESSION: The appendix is enlarged to 1.1 cm in diameter, image 86/126, with no evidence of rupture or periappendiceal inflammation. There is a 0.8 cm cyst at the upper pole of the left kidney. There is a 3.5 cm cyst or follicle on the right ovary. Critical results were discussed with Dr. Sneed by Dr. Christensen at the time ofdictation. [facility] T[facility] Chief Complaint: Abd Pain ED Provider: Irena Ambriz Dx/Rx/DC Orders Prescriptions: No Action amitriptyline 10 mg Tablet 10 mg PO DAILY hydroxyzine HCl 25 mg tablet 25 mg PO DAILY omeprazole magnesium [Prilosec OTC] 20 mg tablet,delayed release (DR/EC) 20 mg PO DAILY Patient Comments: TAKE 1 TABLET BY MOUTH ONCE DAILY duloxetine [Cymbalta] 20 mg Capsule,Delayed Release(Dr/Ec) 20 mg PO DAILY Dupixent Pen 300 mg/2 mL Pen Injector 300 mg SUBCUT QWEEK Rx Instructions: EVERY OTHER WEEK naproxen [Naprosyn] 500 mg tablet 500 mg PO BID Qty: 20 0RF Proctofoam HC 1-1 % foam 1 applic [place] BID PRN (Reason: hemorrhoids) Qty: 10 0RF lidocaine 4 % gel 1 applic topical TID PRN (Reason: pain) Qty: 30 0RF hydrocortisone [Anusol-HC] 2.5 % cream with perineal applicator 1 applic [place] DAILY PRN (Reason: hemorrhoids) Qty: 30 0RF prednisone 20 mg tablet 40 mg PO DAILY 5 Days Qty: 10 0RF hydrocodone-homatropine [Hycodan] 5-1.5 mg/5 mL (5 mL) syrup 5 ml PO 4X/DAY PRN PRN (Reason: cough) 7 Days Qty: 140 0RF ondansetron 4 mg tablet,disintegrating 4 mg PO Q8H PRN (Reason: nausea and vomiting) Qty: 12 0RF naproxen [Naprosyn] 500 mg tablet 500 mg PO BID PRN (Reason: pain) Qty: 20 0RF penicillin V potassium 500 mg tablet 500 mg PO 4X/DAY Qty: 40 0RF Primary Care Provider: Richard Hunter Referrals: Richard Hunter MD [Primary Care Provider] - Print Language: Bulgarian What to do if you have Problems For any increased pain, shortness of breath, bleeding, nausea or vomiting, chestpain, or any unexpected problems, contact your Primary Care Provider. Call [facility] ([phone]) or report to the closest Emergency Room. Call 911 if necessary. 03/12/25 1130 <Electronically signed by Irena Ambriz MD> Cosigner Signature (if applicable): CC: Dr. Richard Hunter MD ~ Signed ADDENDUM by Dr. Irena Ambriz MD on 03/12/25 at 1152 Clinical impression: Appendicitis Right lower quadrant abdominal pain 03/12/25 1152<Electronically signed by Irena Ambriz MD> Cosigner Signature (if applicable): cc: Dr. Richard Hunter MD ~* Signed [facility] Work Phone: Evaluation noteNo assessment information available [facility] Work Phone: Evaluation note* Diagnosis External hemorrhoid- Primary External hemorrhoids without mention of complication Internal hemorrhoids Internal hemorrhoids without mention of complication [facility] Diagnosis Anal fissure- Primary External hemorrhoid External hemorrhoids without mention of complication Internal hemorrhoids Internal hemorrhoids without mention of complication [facility] Diagnosis Procedure not carried out- Primary Procedure not carried out for other reasons [facility] [place] [facility] Diagnosis Anal fissure- Primary [facility] Chronic anal fissure- Primary Anal fissure Chronic anal fissure Anal fissure [facility] Chronic anal fissure- Primary Anal fissure Anal fissure Chronic anal fissure Anal fissure [facility] Diagnosis Chronic anal fissure Anal fissure [facility] Diagnosis Anal or rectal pain- Primary [facility] [place] [facility] Diagnosis Chronic anal fissure- Primary Anal fissure Constipation, unspecified constipation type [facility] [place] [facility] Diagnosis Chronic anal fissure- Primary Anal fissure Chronic anal fissure Anal fissure [facility] [place] [facility] Diagnosis URI, acute- Primary Acute upper respiratory infections of unspecified site ETD (Eustachian tube dysfunction), bilateral Chronic anal fissure Anal fissure [facility] [place] [facility]* Diagnosis Hiatal hernia with gastroesophageal reflux- Primary Esophageal reflux Anal fissure Constipation, chronic Unspecified constipation [facility] [place] [facility]* Diagnosis Constipation, chronic- Primary Unspecified constipation Chronic anal fissure Anal fissure [facility] [place] [facility] Diagnosis ETD (Eustachian tube dysfunction), bilateral [facility] [place] [facility] Diagnosis ETD (Eustachian tube dysfunction), bilateral [facility] [place] [facility] Diagnosis Eczema of right eyelid- Primary Eczematous dermatitis of eyelid [facility] [place] [facility] Diagnosis Paresthesia of left arm- Primary Disturbance of skin sensation Weakness of right hand Muscle weakness (generalized) Left arm pain Pain in limb [facility] [place] [facility] Diagnosis Viral URI with cough- Primary Acute upper respiratory infections of unspecified site Sore throat Acute pharyngitis Flu-like symptoms Other general symptoms Smoker Tobacco use disorder [facility] [place] [facility] Diagnosis Pharyngitis, unspecified etiology- Primary Viral upper respiratory tract infection with cough Acute upper respiratory infections of unspecified site SOB (shortness of breath) Shortness of breath [facility] [place] [facility] Diagnosis Viral upper respiratory tract infection with cough Acute upper respiratory infections of unspecified site [facility] [place] [facility] Diagnosis Sinobronchitis- Primary Unspecified sinusitis (chronic) [facility] [place] [facility] Diagnosis Urinary symptom or sign- Primary Other symptoms involving urinary system Viral syndrome Unspecified viral infection, in conditions classified elsewhere and of unspecified site Bilateral flank pain Abdominal pain, unspecified site Persistent cough for 3 weeks or longer Microscopic hematuria [facility] [place] [facility] Diagnosis Persistent cough for 3 weeks or longer- Primary Chronic nasal congestion Other diseases of nasal cavity and sinuses Gastroesophageal reflux disease without esophagitis Esophageal reflux Microscopic hematuria Fatigue, unspecified type History of anemia Personal history of diseases of blood and blood-forming organs Continuous tobacco abuse Acute bilateral back pain, unspecified back location documented in this encounter [facility] note* Diagnosis Anemia, unspecified type- Primary Low TSH level Nonspecific abnormal results of thyroid function study documented in this encounter [facility] note* Diagnosis Vitamin D deficiency- Primary Unspecified vitamin D deficiency Low TSH level Nonspecific abnormal results of thyroid function study Anemia, unspecified type documented in this encounter [facility] note* Diagnosis Abnormal results of thyroid function studies- Primary Nonspecific abnormal results of thyroid function study documented in this encounter [facility] note* Diagnosis Persistent cough for 3 weeks or longer documented in this encounter [facility] note* Diagnosis Low TSH level- Primary Nonspecific abnormal results of thyroid function study Anemia, unspecified type documented in this encounter [facility] note* Diagnosis Cough present for greater than 3 weeks documented in this encounter [facility] note* Diagnosis SOB (shortness of breath) Shortness of breath documented in this encounter [facility] note* Diagnosis Coccydynia Other disorder of coccyx documented in this encounter [facility] note* Diagnosis Positive FLEX (antinuclear antibody) Other and unspecified nonspecific immunological findings Chronic right shoulder pain Pain in joint, shoulder region documented in this encounter [facility] note* Diagnosis Vaginal itching- Primary Pruritus of genital organs documented in this encounter [facility] note* Diagnosis Gastroesophageal reflux disease without esophagitis- Primary Esophageal reflux Epigastric pain Abdominal pain, epigastric Chest pain, unspecified type Low TSH level Nonspecific abnormal results of thyroid function study Anemia, unspecified type Vitamin D deficiency Unspecified vitamin D deficiency Screening for diabetes mellitus Screening for lipid disorders documented in this encounter [facility] note* Diagnosis Anemia, unspecified type- Primary Vitamin D deficiency Unspecified vitamin D deficiency documented in this encounter [facility] note* Diagnosis Iron deficiency anemia due to chronic blood loss- Primary Iron deficiency anemia secondary to blood loss (chronic) Anemia, unspecified type documented in this encounter [facility] note* Diagnosis Other vitamin B12 deficiency anemia- Primary documented in this encounter [facility] note* Diagnosis Anemia, unspecified type- Primary Iron deficiency anemia due to chronic blood loss Iron deficiency anemia secondary to blood loss (chronic) [facility] Diagnosis Iron deficiency anemia due to chronic blood loss- Primary Iron deficiency anemia secondary to blood loss (chronic) documented in this encounter [facility] note* Diagnosis Iron deficiency anemia due to chronic blood loss- Primary Iron deficiency anemia secondary to blood loss (chronic) documented in this encounter [facility] note* Diagnosis Iron deficiency anemia due to chronic blood loss- Primary Iron deficiency anemia secondary to blood loss (chronic) documented in this encounter [facility] note* Diagnosis Foot pain, bilateral- Primary Pain in limb Menorrhagia with regular cycle Excessive or frequent menstruation Gastroesophageal reflux disease without esophagitis Esophageal reflux documented in this encounter [facility] note* Diagnosis Iron deficiency anemia due to chronic blood loss- Primary Iron deficiency anemia secondary to blood loss (chronic) Other vitamin B12 deficiency anemia Anemia, unspecified type documented in this encounter [facility] note* Diagnosis Iron deficiency anemia due to chronic blood loss- Primary Iron deficiency anemia secondary to blood loss (chronic) documented in this encounter [facility] note* Diagnosis Iron deficiency anemia due to chronic blood loss- Primary Iron deficiency anemia secondary to blood loss (chronic) documented in this encounter [facility] note* Diagnosis Gastroesophageal reflux disease, unspecified whether esophagitis present- Primary Hiatal hernia Diaphragmatic hernia without mention of obstruction or gangrene Anemia, unspecified type documented in this encounter [facility] note* Diagnosis History of esophageal reflux Personal history of other diseases of digestive system documented in this encounter [facility] note* Diagnosis Gastroesophageal reflux disease, unspecified whether esophagitis present- Primary Hiatal hernia Diaphragmatic hernia without mention of obstruction or gangrene documented in this encounter [facility] note* Diagnosis Well woman exam with routine gynecological exam- Primary Routine gynecological examination Cervical cancer screening Screening for malignant neoplasm of the cervix Abnormal uterine bleeding (AUB) documented in this encounter [facility] note* Diagnosis Gastroesophageal reflux disease, unspecified whether esophagitis present- Primary Hiatal hernia Diaphragmatic hernia without mention of obstruction or gangrene Constipation, unspecified constipation type Obesity, Class III, BMI >= 40 Morbid obesity documented in this encounter [facility] note* Diagnosis Morbid obesity with BMI of 40.0-44.9, adult (HCC)- Primary Morbid obesity Fatigue, unspecified type Snoring Other dyspnea and respiratory abnormality Vitamin D deficiency Unspecified vitamin D deficiency Prediabetes Other abnormal glucose [facility] [place] [facility]* Diagnosis Iron deficiency anemia due to chronic blood loss- Primary Iron deficiency anemia secondary to blood loss (chronic) Other vitamin B12 deficiency anemia documented in this encounter [facility] note* Diagnosis Abnormal uterine bleeding (AUB)- Primary documented in this encounter [facility] note* Diagnosis Abnormal uterine bleeding (AUB)- Primary Iron deficiency anemia due to chronic blood loss Iron deficiency anemia secondary to blood loss (chronic) documented in this encounter [facility] note* Diagnosis Onset Date Resolution Status Admit Date Appendicitis acute March 12, 2025 11:35am [facility] Work Phone: History and physical note Author Micky Justin [facility] Note Date/Time March 12, 2025 11 :47am [facility] Medical Records Department [address] [place] [address] History & Physical Exam 03/12/25 1141 MR#: [id number] Acct: [id number] Name: PATI BOND Rep #:[id number] : 1985 39 From: Micky Justin MD PCP: Dr. Richard Hunter MD Status:REG ER Location: ED HPI - General General Date of Admission: 03/12/25 Date of Service: 03/12/25 Chief Complaint: Right lower quadrant pain HPI Narrative PTAI BOND, is a 39 F who presented to the emergency department earlier thismorning with complaints of a several week history of abdominal pain. She statesthat this initially began around the umbilicus and over the past couple of days this seems to have been more pronounced in the right lower quadrant. She statesthat she has had some low-grade temperatures at home up to 100.5. She is afebrile here in the emergency department today. She denies any urinary type symptoms. She states that this pain has been somewhat gradual in nature. She has had some nausea and vomiting. She states her appetite has been diminished as result. She was seen evaluated by the ER staff. Her laboratory values are fairly unremarkable including a white blood cell count that was normal. She didundergo a CT scan today that showed an appendix measuring about 1.1 cm but no obvious fecalith or periappendiceal stranding to indicate obvious acute appendicitis. The only other findings included but a 3 and half centimeter right ovarian cyst as well as some stool in the colon. It sounds as though her pain does not improve with bowel movements. I have been asked by the ER staff to evaluate the patient for possible appendicitis given her clinical picture. [facility] Medical History (Updated 03/12/25 @ 11:[address] Micky Justin MD) Appendicitis Fibromyalgia Hemorrhoids Acid reflux Constipation Diarrhea Nausea and vomiting Anxiety Hypokalemia Dehydration 15 weeks gestation of Threatened in second trimester Gastroenteritis Home Medications ?Medication ?Instructions ?Recorded ?Last Taken ?Type amitriptyline 10 mg tablet 10 mg PO DAILY 12/02/20 Unk nown History duloxetine 20 mg capsule,delayed 20 mg PO DAILY Unknown History release (Cymbalta) dupilumab 300 mg/2 mL subcutaneous 300 mg subcut QWEEK 12/02/20 Unknown History pen injector (Dupixent) hydroxyzine HCl 25 mg tablet 25 mg PO DAILY 12/02/20 U nknown History naproxen 500 mg tablet (Naprosyn) 500 mg PO BID #20 ta bs 12/02/20 Unknown Rx omeprazole magnesium 20 mg 20 mg PO DAILY 12/02/20 Unk nown History tablet,delayed release (Prilosec OTC) hydrocortisone 1 %-pramoxine 1 % 1 applic [place] BID PRN h emorrhoids 01/09/22 Unknown Rx rectal foam (Proctofoam HC) #10 grams lidocaine 4 % topical gel 1 applic topical TID PRN nadeen n #30 01/09/22 Unknown Rx grams hydrocortisone 2.5 % topical cream 1 applic [place] DAILY P RN hemorrhoids 02/10/22 Unknown Rx with perineal applicator #30 grams (Anusol-HC) hydrocodone-homatropine 5 mg-1.5 5 ml PO 4X/DAY PRN AZ N cough 7 02/24/23 Unknown Rx mg/5 mL (5 mL) oral solution days #140 mL (Hycodan) prednisone 20 mg tablet 40 mg (2 x 20 mg) PO DAILY 5 days 02/24/23 Unknown Rx #10 tabs ondansetron 4 mg disintegrating 4 mg PO Q8H PRN nausea and 12/26/23 Unknown Rx tablet vomiting #12 tabs naproxen 500 mg tablet (Naprosyn) 500 mg PO BID PRN pa in #20 tabs 07/05/24 Unknown Rx penicillin V potassium 500 mg 500 mg PO 4X/DAY #40 tab s 07/05/24 Unknown Rx tablet Allergy/AdvReac Type Severity Reaction Status Date / Time No Known Allergies Allergy Verified 03/12/25 08:35 Family History Father Thyroid disorder Surgical History H/O: History of cholecystectomy Social History Smoking Status: Never smoker alcohol intake: never substance use type: does not use ROS Constitutional Constitutional: Reports systems reviewed and no addt'l complaints, except as documented Eyes Eyes: Reports systems reviewed and no addt'l complaints, except as documented ENT HEENT: Reports systems reviewed and no addt'l complaints, except as documented Cardiovascular Cardiovascular: Reports systems reviewed and no addt'l complaints, except as documented Respiratory/Chest Respiratory/Chest: Reports systems reviewed and no addt'l complaints, except as documented Gastrointestinal Gastrointestinal: Reports systems reviewed and no addt'l complaints, except as documented Genitourinary Genitourinary: Reports systems reviewed and no addt'l complaints, except as documented Musculoskeletal Musculoskeletal: Reports systems reviewed and no addt'l complaints, except as documented Vital Signs Vital Signs Vital Signs: 03/12/25 08:34 03/12/25 10:51 03/12/25 11:38 Temperature 97.9 F 98.4 F Temperature Source Temporal Pulse Rate 88 57 L 66 Respiratory Rate 14 16 18 Blood Pressure 152/90 H 110/68 125/96 H Blood Pressure Mean 110 82 105 Pulse Ox 98 100 99 Oxygen Delivery Method Room Air Room Air 03/12/25 11:39 Temperature 98.4 F Temperature Source Oral Pulse Rate 67 Respiratory Rate 18 Blood Pressure 126/96 H Blood Pressure Mean 106 Pulse Ox 99 Oxygen Delivery Method Room Air Weight Weight: 234 lb 12.677 oz Body Mass Index (BMI) 39.0 Physical Exam Narrative She is alert and oriented x 3. She is in no acute distress. Head is normocephalic and atraumatic. Pupils are equal round and reactive to light. Abdomen is soft, obese and nondistended. There is mild tenderness to palpation in the right lower quadrant overlying where the appendix was identified on CT scan. There is no obvious rebound or guarding. No flank tenderness. Results Lab / Micro Data 03/12/25 09:20 03/12/25 09:20 Labs: Laboratory Results - last 24 hr 03/12/25 08:39: Urine Color Yellow, Urine Clarity Sl. Cloudy, Urine pH 6.0, Ur Specific [place] 1.025, Urine Protein 30 H, Urine Glucose (UA) Normal, Urine Ketones 5 H, Urine Occult Blood 10 H, Urine Nitrite Negative, Urine Bilirubin Negative, Urine Urobilinogen 1 H, Ur Leukocyte Esterase Negative, Urine RBC 0 SEEN, Urine WBC 0 SEEN, Ur Squamous Epith Cells 0-5 SEEN, Urine Bacteria 1+, Urine Mucus 1+, Urine Test Negative 03/12/25 09:20: WBC 7.1, RBC 4.69, Hgb 14.7, Hct 41.5, MCV 88.5, MCH 31.3, MCHC 35.4, RDW Std Deviation 41.1, RDW Coeff of Onel 12.8, Plt Count 196, MPV 10.5, Immature Gran % (Auto) 0.300, Neut % (Auto) 67.5, Lymph % (Auto) 24.8, Sanders % (Auto) 5.3, Eos % (Auto) 1.7, Baso % (Auto) 0.4, Absolute Neuts (auto) 4.8, Absolute Lymphs (auto) 1.76, Nucleated RBC % 0, Sodium 138, Potassium 3.8, Chloride 108, Carbon Dioxide 19.6 L, Anion Gap 10, BUN 9, Creatinine 0.71, EstimCreat Clear Calc 131.53, Est GFR (MDRD) Non-Af 113, BUN/Creatinine Ratio 12.4, Glucose 83, Calcium 9.0, Total Bilirubin 0.48, AST 15, ALT 9, Alkaline Phosphatase 77, Total Protein 7.1, Albumin 4.4, Globulin 2.7, Albumin/Globulin Ratio 1.6, Lipase 40 Imaging Radiology Impression Abdomen/Pelvis CT 03/12/25 10:00 IMPRESSION: The appendix is enlarged to 1.1 cm in diameter, image 86/126, with no evidence of rupture or periappendiceal inflammation. There is a 0.8 cm cyst at the upper pole of the left kidney. There is a 3.5 cm cyst or follicle on the right ovary. Critical results were discussed with Dr. Sneed by Dr. Christensen at the time ofdictation. Reading [facility] & Plan Assessment/Plan (1) Appendicitis: PLAN: Plan The patient is a 39-year-old female with periumbilical pain over the past several weeks which now seems to be more located in the right lower quadrant. She presented with this pain along with nausea, vomiting and low-grade fevers. CT scan showed what appeared to be a enlarged and enhanced appendix however there was no obvious periappendiceal stranding. Clinically I suspect she more than likely does represent a chronic smoldering appendicitis type picture. I did offer her the option of a diagnostic laparoscopy with laparoscopic appendectomy. We discussed the details of the planned procedure including the risks benefits and alternatives. She wishes to proceed. This will be scheduledfor later this afternoon as her last oral intake was coffee with cream around 8 AM today 03/12/25 1147 <Electronically signed by Micky Justin MD> Cosigner Signature (if applicable): CC: Dr. Richard Hunter MD; Dr. Micky Justin MD~ Signed ADDENDUM by Dr. Micky Justin MD on 03/12/25 at 1147 Visit Charges Inpatient E&M: 06598 Init Hosp L3 03/12/25 1147<Electronically signed by Micky Justin MD> Cosigner Signature (if applicable): cc: Dr. Richard Hunter MD; Dr. Micky Justin MD ~* Signed [facility] Work Phone: Reason for referral (narrative)* Outpatient Procedure (Routine) - Pending Review Specialty Diagnoses / Procedures Referred By Cory t Referred To Contact [facility] Diagnoses Persistent cough for 3 weeks or longer Procedures SPIROMETRY - BASELINE AND POST DILATOR BRNCDILAT RSPSE SPMTRY PRE&POST-BRNCDILAT ADMN John Sanchez, MASTER AUTOMOTIVE TECHNICIAN.CAKE PUNCHER [address] [facility] [place] [address] Res[facility] [place] [address] [place] [address] Referral ID Status Reason Start Date Expiration Date Visits Requested Visits Authorized [id number] Pending Review Auto-Generat ed Referral 08/22/2023 09/20/2024 1 1 * Consult, Test, Treat (Routine) - Authorized Specialty Diagnoses / Procedures Referred By Contac t Referred To Contact Gastroenterology Diagnoses Gastroesophageal reflux disease without esophagitis Procedures CONSULT TO GASTROENTEROLOGY OFFICE/[facility]PATIENT [facility] 60 MINUTES John Sanchez APRN.CNP [address] [facility] [place] [address] Referral ID Status Reason Start Date Expiration Date Visits Requested Visits Authorized [id number] Authorized PCP Requested Referral 08/22/2023 08/21/[address] [facility] for referral (narrative)* Diagnostic Procedure Only (Urgent) - Closed Specialty Diagnoses / Procedures Referred By Conttiana t Referred To Contact XR IMAGING Diagnoses Coccydynia Procedures XR SACRUM/COCCYX 3V AP/LAT RADEX SACRUM & COCCYX MINIMUM 2 VIEWS Chika Rivas PA-C [facility] [place] [address] [place] [address] Referral ID Status Reason Start Date Expiration Date V isits Requested Visits Authorized [id number] Closed Auto-Generate d Referral 09/05/2021 10/05/[address] [facility] for referral (narrative)* Outpatient Procedure (Routine) - Closed Specialty Diagnoses / Procedures Referred By Contac t Referred To Contact [facility] Procedures EGD DIAGNOSTIC ESOPHAGOGASTRODUODENOS COPY TRANSORAL DIAGNOSTIC Daniel Hardin, [address] [place] [address] Phone: tel: fax: [facility] [address] [place] [id number] Referral ID Status Reason Start Date Expiration Date V isits Requested Visits Authorized [id number] Closed Auto-Generate d Referral 12/10/2024 12/10/[address] [facility] for referral (narrative)* Outpatient Procedure (Routine) - Closed Specialty Diagnoses / Procedures Referred By Contac t Referred To Contact [facility] Procedures EGD DIAGNOSTIC ESOPHAGOGASTRODUODENOS COPY TRANSORAL DIAGNOSTIC Daniel Hardin, DO [address] [place] [address] Phone: tel: fax: [facility] [address] [place] [id number] Referral ID Status Reason Start Date Expiration Date V isits Requested Visits Authorized [id number] Closed Auto-Generate d Referral 12/10/2024 12/10/[address] [facility] for referral (narrative)No reason for referral information [facility] Work Phone: Reason for visit Narrative* Diagnostic Procedure Only (Urgent) - Closed Specialty Diagnoses / Procedures Referred By Cory t Referred To Contact XR IMAGING Diagnoses Coccydynia Procedures XR SACRUM/COCCYX 3V AP/LAT RADEX SACRUM & COCCYX MINIMUM 2 VIEWS Chika Rivas PA-C [address] [place] [address] [place] [address] Referral ID Status Reason Start Date Expiration Date V isits Requested Visits Authorized [id number] Closed Auto-Generate d Referral 09/05/2021 10/05/[address] [facility] for visit Narrative* Outpatient Procedure (Routine) - Closed Specialty Diagnoses / Procedures Referred By Cory t Referred To Contact [facility] Procedures EGD DIAGNOSTIC ESOPHAGOGASTRODUODENOS COPY TRANSORAL DIAGNOSTIC Daniel Hardin, DO [address] [place] [address] Phone: tel: fax: [facility] [address] [place] [address] Referral ID Status Reason Start Date Expiration Date V isits Requested Visits Authorized [id number] Closed Auto-Generate d Referral 12/10/2024 12/10/2025 1 [facility] Procedure (Routine) - Closed Specialty Diagnoses / Procedures Referred By Contac t Referred To Contact [facility] Diagnoses Gastroesophageal reflux disease, unspecified whether esophagitis present Hiatal hernia Procedures EGD DIAGNOSTIC ESOPHAGOGASTRODUODENOSC OPY TRANSORAL DIAGNOSTIC Bradly Roy APRN.CAKE PUNCHER [address] [place] [address] Phone: tel: fax: [facility] [address] [place] [address] Referral ID Status Reason Start Date Expiration Date V isits Requested Visits Authorized [id number] Closed Auto-Generate d Referral 11/26/2024 11/26/2025 1 1 [facility] Summary Purpose Family History Relationship Condition Age at Onset Recorded Date/T dipesh father Disorder of thyroid Unknown Advance Directives Advance Directive Response Recorded Date/ Time Advance Directives No August 10:35am Living Will No January 09, 2022 7:58am Power of Rn New Grad No January 09 7:58am Documents on File Type Date Recorded 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 Advance Directive(s) 10/01/2017 6:41 PM Documents on File Type Date Recorded 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 Advance Directive(s) 10/01/2017 6:41 PM Advance Directive Response Recorded Date/ Time Advance Directives No August 10:35am Living Will No February 10, 2022 7:46am Power of Rn New Grad No February 10 7:46am Documents on File Type Date Recorded 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 No March 12, 2025 8:46am Advance Directives No August 10:35am Chief Complaint and Reason for Visit Chief Complaint rectal pain Chief Complaint rectal pain rectal pain Chief Complaint Cough Chief Complaint Admit Date APPENDICITIS March 12, 2025 11 :35am NAUSEA March 12, 2025 11 :41am Reason for Visit Admit Date Appendicitis March 12, 2025 11 :35am Reason for Referral Specialty Diagnoses / Procedures Referred By Contac t Referred To Contact Laney Hunter MD [address] [facility] [place] [address] Referral ID Status Reason Start Date Expiration Date Visits Re quested Visits Authorized [id number] Closed 1 1 Specialty Diagnoses / Procedures Referred By Contac t Referred To Contact General Surgery Diagnoses External hemorrhoid Internal hemorrhoids Procedures CONSULT TO GENERAL SURGERY OFFICE/OUTPATIENT [facility] 60-74 MINUTES Laney Hunter MD [address] [facility] [place] [address] Referral ID Status Reason Start Date Expiration Date Visits Requested Visits Authorized [id number] Authorized PCP Requested Referral 01/20/2022 01/20/2023 1 1 Specialty Diagnoses / Procedures Referred By Contac t Referred To Contact Diagnoses Chronic anal fissure Constipation, unspecified constipation type Pati Chopra PA-C [address] [place] [address] Referral ID Status Reason Start Date Expiration Date Visits Re quested Visits Authorized [id number] Closed 1 1 Specialty Diagnoses / Procedures Referred By Contac t Referred To Contact Gastroenterology Diagnoses Hiatal hernia with gastroesophageal reflux Procedures CONSULT TO GASTROENTEROLOGY OFFICE/OUTPATIENT [facility] 60-74 MINUTES Bib Sorensen MD [address] [place] [address] Referral ID Status Reason Start Date Expiration Date Visits Requested Visits Authorized [id number] Authorized PCP Requested Referral 2 04/24/2023 1 1 Specialty Diagnoses / Procedures Referred By Contac t Referred To Contact Diagnoses Constipation, chronic Chronic anal fissure Pati Chopra PA-C [address] [place] [id number] Referral ID Status Reason Start Date Expiration Date V isits Requested Visits Authorized [id number] Pending Review 1 1 Specialty Diagnoses / Procedures Referred By Contac t Referred To Contact Neurology Diagnoses Paresthesia of left arm Weakness of right hand Procedures CONSULT TO NEUROLOGY OFFICE/OUTPATIENT [facility] 60-74 MINUTES John Sanchez APRN.CAKE P[employer]CHER [address] [place], [place] [id number] Referral ID Status Reason Start Date Expiration Date Visits Requested Visits Authorized [id number] Authorized PCP Requested Referral 11/13/2022 11/13/2023 1 1 Specialty Diagnoses / Procedures Referred By Contac t Referred To Contact XR IMAGING Diagnoses Paresthesia of left arm Procedures XR CERV OTHER 4V AP/LAT/OBL RADEX SPINE CERVICAL 4 OR 5 VIEWS John Sanchez APRN.[employer] [address] [place] [address] Xr Imaging Referral ID Status Reason Start Date Expiration Date Visits Requested Visits Authorized [id number] Pending Review Auto-Generat ed Referral 11/13/2022 12/13/2023 1 1 Specialty Diagnoses / Procedures Referred By Contac t Referred To Contact [facility] Diagnoses Paresthesia of left arm Weakness of right hand Procedures EMG(NEURO/NI) NERVE CONDUCTION STUDIES 9-10 STUDIES John Sanchez APRN.[employer] [address] [place] [address] [facility] [address] [id number] Referral ID Status Reason Start Date Expiration Date Visits Requested Visits Authorized [id number] Pending Review Auto-Generat ed Referral 11/13/2022 11/14/2023 1 1 Specialty Diagnoses / Procedures Referred By Contac t Referred To Contact Gastroenterology Diagnoses Gastroesophageal reflux disease without esophagitis Procedures CONSULT TO GASTROENTEROLOGY OFFICE/OUTPATIENT [facility] MDM 60 MINUTES John Giles APRN.[employer] [address] [facility] [place] [address] Referral ID Status Reason Start Date Expiration Date Visits Requested Visits Authorized [id number] Authorized PCP Requested Referral 07/17/2024 07/17/2025 1 1 Specialty Diagnoses / Procedures Referred By Contac t Referred To [facility] Diagnoses Chest pain, unspecified type Procedures ECG COMPLETE ECG ROUTINE ECG W/LEAST 12 LDS W/I&R John Giles, MASTER AUTOMOTIVE TECHNICIAN.[employer] [address] [facility] [place] [address] [facility] [address] [place] [address] Referral ID Status Reason Start Date Expiration Date Visits Requested Visits Authorized [id number] New Request Auto-Generat ed Referral 07/17/2024 07/17/2025 1 1 Specialty Diagnoses / Procedures Referred By Contac t Referred To Contact Hematology Diagnoses Anemia, unspecified type Procedures CONSULT TO HEMATOLOGY OFFICE/OUTPATIENT NEW HIGH MDM 60 MINUTES John Giles, MASTER AUTOMOTIVE TECHNICIAN.[employer] [address] [facility] [place] [address] Referral ID Status Reason Start Date Expiration Date Visits Requested Visits Authorized [id number] Authorized PCP Requested Referral 07/30/2024 07/30/2025 1 1 Health Concerns Infection Onset Date Last Indicated Resolved Time Influenza 08/20/2023 08/20/2023 Infection Onset Date Last Indicated Resolved Time Influenza 08/20/2023 08/20/2023 Additional Source Comments INFORMATION SOURCE (unrecogn ized section and content) DATE CREATED AUTHOR 01/03/2018 [facility] DATE CREATED AUTHOR AUTHOR'S ORGANIZ ATION 01/04/2018 [facility] DATE CREATED AUTHOR AUTHOR'S ORGANIZ ATION 01/04/2018 [facility] [place] DATE CREATED AUTHOR AUTHOR'S ORGANIZ ATION 02/19/2022 [facility] DATE CREATED AUTHOR AUTHOR'S ORGANIZ ATION 08/03/2024 [facility] DATE CREATED AUTHOR AUTHOR'S ORGANIZ ATION 01/10/2025 [facility] DATE CREATED AUTHOR AUTHOR'S ORGANIZ ATION 02/14/2025 [facility] DATE CREATED AUTHOR AUTHOR'S CHIKA BARNES 03/03/2025 [facility] Goals (unrecognized section and content) Goals may be documented in a n alternate sectionGoals may be documented in an alternate sectionGoals may be documented in an alternate sectionGoals may be documented in an alternate section Source Comments (unrecognize d section and content) In the event this informatio n is protected by the Federal Confidentiality of Alcohol and Drug Abuse Patient Records regulations: The Federal rules restrict any use of the information to criminally investigate or prosecute any alcohol or drug abuse patient.[facility] the event this information is protected by the Federal Confidentiality of Alcohol and Drug Abuse Patient Records regulations: The Federal rules restrict any use of the information to criminally investigate or prosecute any alcohol or drug abuse patient.[facility]In the event this information is protected by the Federal Confidentiality of Alcohol and Drug Abuse Patient Records regulations: The Federal rules restrict any use of the information to criminally investigate or prosecute any alcohol or drug abuse patient.[facility]In the event this information is protected by the Federal Confidentiality of Alcohol and Drug Abuse Patient Records regulations: The Federal rules restrict any use of the information to criminally investigate or prosecute any alcohol or drug abuse patient.[facility]In the event this information is protected by the Federal Confidentiality of Alcohol and Drug Abuse Patient Records regulations: The Federal rules restrict any use of the information to criminally investigate or prosecute any alcohol or drug abuse patient.[facility] HospitalIn the event this information is protected by the Federal Confidentiality of Alcohol and Drug Abuse Patient Records regulations: The Federal rules restrict any use of the information to criminally investigate or prosecute any alcohol or drug abuse patient.[facility] HospitalIn the event this information is protected by the Federal Confidentiality of Alcohol and Drug Abuse Patient Records regulations: The Federal rules restrict any use of the information to criminally investigate or prosecute any alcohol or drug abuse patient.[facility]In the event this information is protected by the Federal Confidentiality of Alcohol and Drug Abuse Patient Records regulations: The Federal rules restrict any use of the information to criminally investigate or prosecute any alcohol or drug abuse patient.[facility] HospitalIn the event this information is protected by the Federal Confidentiality of Alcohol and Drug Abuse Patient Records regulations: The Federal rules restrict any use of the information to criminally investigate or prosecute any alcohol or drug abuse patient.[facility] HospitalIn the event this information is protected by the Federal Confidentiality of Alcohol and Drug Abuse Patient Records regulations: The Federal rules restrict any use of the information to criminally investigate or prosecute any alcohol or drug abuse patient.[facility] HospitalIn the event this information is protected by the Federal Confidentiality of Alcohol and Drug Abuse Patient Records regulations: The Federal rules restrict any use of the information to criminally investigate or prosecute any alcohol or drug abuse patient.[facility] HospitalIn the event this information is protected by the Federal Confidentiality of Alcohol and Drug Abuse Patient Records regulations: The Federal rules restrict any use of the information to criminally investigate or prosecute any alcohol or drug abuse patient.[facility] HospitalIn the event this information is protected by the Federal Confidentiality of Alcohol and Drug Abuse Patient Records regulations: The Federal rules restrict any use of the information to criminally investigate or prosecute any alcohol or drug abuse patient.[facility] HospitalIn the event this information is protected by the Federal Confidentiality of Alcohol and Drug Abuse Patient Records regulations: The Federal rules restrict any use of the information to criminally investigate or prosecute any alcohol or drug abuse patient.[facility] HospitalIn the event this information is protected by the Federal Confidentiality of Alcohol and Drug Abuse Patient Records regulations: The Federal rules restrict any use of the information to criminally investigate or prosecute any alcohol or drug abuse patient.[facility] HospitalIn the event this information is protected by the Federal Confidentiality of Alcohol and Drug Abuse Patient Records regulations: The Federal rules restrict any use of the information to criminally investigate or prosecute any alcohol or drug abuse patient.[facility] HospitalIn the event this information is protected by the Federal Confidentiality of Alcohol and Drug Abuse Patient Records regulations: The Federal rules restrict any use of the information to criminally investigate or prosecute any alcohol or drug abuse patient.[facility] HospitalIn the event this information is protected by the Federal Confidentiality of Alcohol and Drug Abuse Patient Records regulations: The Federal rules restrict any use of the information to criminally investigate or prosecute any alcohol or drug abuse patient.[facility] HospitalIn the event this information is protected by the Federal Confidentiality of Alcohol and Drug Abuse Patient Records regulations: The Federal rules restrict any use of the information to criminally investigate or prosecute any alcohol or drug abuse patient.[facility] HospitalIn the event this information is protected by the Federal Confidentiality of Alcohol and Drug Abuse Patient Records regulations: The Federal rules restrict any use of the information to criminally investigate or prosecute any alcohol or drug abuse patient.[facility] HospitalIn the event this information is protected by the Federal Confidentiality of Alcohol and Drug Abuse Patient Records regulations: The Federal rules restrict any use of the information to criminally investigate or prosecute any alcohol or drug abuse patient.[facility] HospitalIn the event this information is protected by the Federal Confidentiality of Alcohol and Drug Abuse Patient Records regulations: The Federal rules restrict any use of the information to criminally investigate or prosecute any alcohol or drug abuse patient.[facility] HospitalIn the event this information is protected by the Federal Confidentiality of Alcohol and Drug Abuse Patient Records regulations: The Federal rules restrict any use of the information to criminally investigate or prosecute any alcohol or drug abuse patient.[facility] HospitalIn the event this information is protected by the Federal Confidentiality of Alcohol and Drug Abuse Patient Records regulations: The Federal rules restrict any use of the information to criminally investigate or prosecute any alcohol or drug abuse patient.[facility] HospitalIn the event this information is protected by the Federal Confidentiality of Alcohol and Drug Abuse Patient Records regulations: The Federal rules restrict any use of the information to criminally investigate or prosecute any alcohol or drug abuse patient.[facility] HospitalIn the event this information is protected by the Federal Confidentiality of Alcohol and Drug Abuse Patient Records regulations: The Federal rules restrict any use of the information to criminally investigate or prosecute any alcohol or drug abuse patient.[facility] HospitalIn the event this information is protected by the Federal Confidentiality of Alcohol and Drug Abuse Patient Records regulations: The Federal rules restrict any use of the information to criminally investigate or prosecute any alcohol or drug abuse patient.[facility] HospitalIn the event this information is protected by the Federal Confidentiality of Alcohol and Drug Abuse Patient Records regulations: The Federal rules restrict any use of the information to criminally investigate or prosecute any alcohol or drug abuse patient.[facility] HospitalIn the event this information is protected by the Federal Confidentiality of Alcohol and Drug Abuse Patient Records regulations: The Federal rules restrict any use of the information to criminally investigate or prosecute any alcohol or drug abuse patient.[facility] HospitalIn the event this information is protected by the Federal Confidentiality of Alcohol and Drug Abuse Patient Records regulations: The Federal rules restrict any use of the information to criminally investigate or prosecute any alcohol or drug abuse patient.[facility] HospitalIn the event this information is protected by the Federal Confidentiality of Alcohol and Drug Abuse Patient Records regulations: The Federal rules restrict any use of the information to criminally investigate or prosecute any alcohol or drug abuse patient.[facility] HospitalIn the event this information is protected by the Federal Confidentiality of Alcohol and Drug Abuse Patient Records regulations: The Federal rules restrict any use of the information to criminally investigate or prosecute any alcohol or drug abuse patient.[facility] HospitalIn the event this information is protected by the Federal Confidentiality of Alcohol and Drug Abuse Patient Records regulations: The Federal rules restrict any use of the information to criminally investigate or prosecute any alcohol or drug abuse patient.[facility] HospitalIn the event this information is protected by the Federal Confidentiality of Alcohol and Drug Abuse Patient Records regulations: The Federal rules restrict any use of the information to criminally investigate or prosecute any alcohol or drug abuse patient.[facility] HospitalIn the event this information is protected by the Federal Confidentiality of Alcohol and Drug Abuse Patient Records regulations: The Federal rules restrict any use of the information to criminally investigate or prosecute any alcohol or drug abuse patient.[facility] HospitalIn the event this information is protected by the Federal Confidentiality of Alcohol and Drug Abuse Patient Records regulations: The Federal rules restrict any use of the information to criminally investigate or prosecute any alcohol or drug abuse patient.[facility] HospitalIn the event this information is protected by the Federal Confidentiality of Alcohol and Drug Abuse Patient Records regulations: The Federal rules restrict any use of the information to criminally investigate or prosecute any alcohol or drug abuse patient.[facility] HospitalIn the event this information is protected by the Federal Confidentiality of Alcohol and Drug Abuse Patient Records regulations: The Federal rules restrict any use of the information to criminally investigate or prosecute any alcohol or drug abuse patient.[facility] HospitalIn the event this information is protected by the Federal Confidentiality of Alcohol and Drug Abuse Patient Records regulations: The Federal rules restrict any use of the information to criminally investigate or prosecute any alcohol or drug abuse patient.[facility] HospitalIn the event this information is protected by the Federal Confidentiality of Alcohol and Drug Abuse Patient Records regulations: The Federal rules restrict any use of the information to criminally investigate or prosecute any alcohol or drug abuse patient.[facility] HospitalIn the event this information is protected by the Federal Confidentiality of Alcohol and Drug Abuse Patient Records regulations: The Federal rules restrict any use of the information to criminally investigate or prosecute any alcohol or drug abuse patient.[facility] HospitalIn the event this information is protected by the Federal Confidentiality of Alcohol and Drug Abuse Patient Records regulations: The Federal rules restrict any use of the information to criminally investigate or prosecute any alcohol or drug abuse patient.[facility] HospitalIn the event this information is protected by the Federal Confidentiality of Alcohol and Drug Abuse Patient Records regulations: The Federal rules restrict any use of the information to criminally investigate or prosecute any alcohol or drug abuse patient.[facility] HospitalIn the event this information is protected by the Federal Confidentiality of Alcohol and Drug Abuse Patient Records regulations: The Federal rules restrict any use of the information to criminally investigate or prosecute any alcohol or drug abuse patient.[facility] HospitalIn the event this information is protected by the Federal Confidentiality of Alcohol and Drug Abuse Patient Records regulations: The Federal rules restrict any use of the information to criminally investigate or prosecute any alcohol or drug abuse patient.[facility] HospitalIn the event this information is protected by the Federal Confidentiality of Alcohol and Drug Abuse Patient Records regulations: The Federal rules restrict any use of the information to criminally investigate or prosecute any alcohol or drug abuse patient.[facility] HospitalIn the event this information is protected by the Federal Confidentiality of Alcohol and Drug Abuse Patient Records regulations: The Federal rules restrict any use of the information to criminally investigate or prosecute any alcohol or drug abuse patient.[facility] HospitalIn the event this information is protected by the Federal Confidentiality of Alcohol and Drug Abuse Patient Records regulations: The Federal rules restrict any use of the information to criminally investigate or prosecute any alcohol or drug abuse patient.[facility] HospitalIn the event this information is protected by the Federal Confidentiality of Alcohol and Drug Abuse Patient Records regulations: The Federal rules restrict any use of the information to criminally investigate or prosecute any alcohol or drug abuse patient.[facility] HospitalIn the event this information is protected by the Federal Confidentiality of Alcohol and Drug Abuse Patient Records regulations: The Federal rules restrict any use of the information to criminally investigate or prosecute any alcohol or drug abuse patient.[facility] HospitalIn the event this information is protected by the Federal Confidentiality of Alcohol and Drug Abuse Patient Records regulations: The Federal rules restrict any use of the information to criminally investigate or prosecute any alcohol or drug abuse patient.[facility] HospitalIn the event this information is protected by the Federal Confidentiality of Alcohol and Drug Abuse Patient Records regulations: The Federal rules restrict any use of the information to criminally investigate or prosecute any alcohol or drug abuse patient.[facility] HospitalIn the event this information is protected by the Federal Confidentiality of Alcohol and Drug Abuse Patient Records regulations: The Federal rules restrict any use of the information to criminally investigate or prosecute any alcohol or drug abuse patient.[facility] HospitalIn the event this information is protected by the Federal Confidentiality of Alcohol and Drug Abuse Patient Records regulations: The Federal rules restrict any use of the information to criminally investigate or prosecute any alcohol or drug abuse patient.[facility] HospitalIn the event this information is protected by the Federal Confidentiality of Alcohol and Drug Abuse Patient Records regulations: The Federal rules restrict any use of the information to criminally investigate or prosecute any alcohol or drug abuse patient.[facility] HospitalIn the event this information is protected by the Federal Confidentiality of Alcohol and Drug Abuse Patient Records regulations: The Federal rules restrict any use of the information to criminally investigate or prosecute any alcohol or drug abuse patient.[facility] HospitalIn the event this information is protected by the Federal Confidentiality of Alcohol and Drug Abuse Patient Records regulations: The Federal rules restrict any use of the information to criminally investigate or prosecute any alcohol or drug abuse patient.[facility] HospitalIn the event this information is protected by the Federal Confidentiality of Alcohol and Drug Abuse Patient Records regulations: The Federal rules restrict any use of the information to criminally investigate or prosecute any alcohol or drug abuse patient.[facility] HospitalIn the event this information is protected by the Federal Confidentiality of Alcohol and Drug Abuse Patient Records regulations: The Federal rules restrict any use of the information to criminally investigate or prosecute any alcohol or drug abuse patient.[facility] HospitalIn the event this information is protected by the Federal Confidentiality of Alcohol and Drug Abuse Patient Records regulations: The Federal rules restrict any use of the information to criminally investigate or prosecute any alcohol or drug abuse patient.[facility] HospitalIn the event this information is protected by the Federal Confidentiality of Alcohol and Drug Abuse Patient Records regulations: The Federal rules restrict any use of the information to criminally investigate or prosecute any alcohol or drug abuse patient.[facility] HospitalIn the event this information is protected by the Federal Confidentiality of Alcohol and Drug Abuse Patient Records regulations: The Federal rules restrict any use of the information to criminally investigate or prosecute any alcohol or drug abuse patient.[facility] HospitalIn the event this information is protected by the Federal Confidentiality of Alcohol and Drug Abuse Patient Records regulations: The Federal rules restrict any use of the information to criminally investigate or prosecute any alcohol or drug abuse patient.[facility] HospitalIn the event this information is protected by the Federal Confidentiality of Alcohol and Drug Abuse Patient Records regulations: The Federal rules restrict any use of the information to criminally investigate or prosecute any alcohol or drug abuse patient.[facility] HospitalIn the event this information is protected by the Federal Confidentiality of Alcohol and Drug Abuse Patient Records regulations: The Federal rules restrict any use of the information to criminally investigate or prosecute any alcohol or drug abuse patient.[facility] HospitalIn the event this information is protected by the Federal Confidentiality of Alcohol and Drug Abuse Patient Records regulations: The Federal rules restrict any use of the information to criminally investigate or prosecute any alcohol or drug abuse patient.[facility] HospitalIn the event this information is protected by the Federal Confidentiality of Alcohol and Drug Abuse Patient Records regulations: The Federal rules restrict any use of the information to criminally investigate or prosecute any alcohol or drug abuse patient.[facility] HospitalIn the event this information is protected by the Federal Confidentiality of Alcohol and Drug Abuse Patient Records regulations: The Federal rules restrict any use of the information to criminally investigate or prosecute any alcohol or drug abuse patient.[facility] HospitalIn the event this information is protected by the Federal Confidentiality of Alcohol and Drug Abuse Patient Records regulations: The Federal rules restrict any use of the information to criminally investigate or prosecute any alcohol or drug abuse patient.[facility] HospitalIn the event this information is protected by the Federal Confidentiality of Alcohol and Drug Abuse Patient Records regulations: The Federal rules restrict any use of the information to criminally investigate or prosecute any alcohol or drug abuse patient.[facility] HospitalIn the event this information is protected by the Federal Confidentiality of Alcohol and Drug Abuse Patient Records regulations: The Federal rules restrict any use of the information to criminally investigate or prosecute any alcohol or drug abuse patient.[facility] HospitalIn the event this information is protected by the Federal Confidentiality of Alcohol and Drug Abuse Patient Records regulations: The Federal rules restrict any use of the information to criminally investigate or prosecute any alcohol or drug abuse patient.[facility] HospitalIn the event this information is protected by the Federal Confidentiality of Alcohol and Drug Abuse Patient Records regulations: The Federal rules restrict any use of the information to criminally investigate or prosecute any alcohol or drug abuse patient.[facility] the event this information is protected by the Federal Confidentiality of Alcohol and Drug Abuse Patient Records regulations: The Federal rules restrict any use of the information to criminally investigate or prosecute any alcohol or drug abuse patient.[facility] HospitalIn the event this information is protected by the Federal Confidentiality of Alcohol and Drug Abuse Patient Records regulations: The Federal rules restrict any use of the information to criminally investigate or prosecute any alcohol or drug abuse patient.[facility] HospitalIn the event this information is protected by the Federal Confidentiality of Alcohol and Drug Abuse Patient Records regulations: The Federal rules restrict any use of the information to criminally investigate or prosecute any alcohol or drug abuse patient.[facility] the event this information is protected by the Federal Confidentiality of Alcohol and Drug Abuse Patient Records regulations: The Federal rules restrict any use of the information to criminally investigate or prosecute any alcohol or drug abuse patient.[facility] Reason for Visit (unrecogniz ed section and content) Reason Comments Received Outside Medical Records [facility] Reason Comments Medication Problem Reason Comments Nurse Triage Call information Reason Comments Consult Rectal Pain Specialty Diagnoses / Procedures Referred By Contac t Referred To Contact General Surgery Diagnoses External hemorrhoid Internal hemorrhoids Procedures CONSULT TO GENERAL SURGERY OFFICE/OUTPATIENT [facility] 60-74 MINUTES Laney Hunter MD [address] [place] [address] [place] [address] Referral ID Status Reason Start Date Expiration Date V isits Requested Visits Authorized [id number] Closed PCP Requested Referral 01/20/2022 01/20/2023 1 1 Reason Comments Received Outside Medical Records ED [facility] Reason Comments Rectal Problem taking alot of meds for hemorrhoids, very uncomfortable Reason Comments Pain Reason Comments Patient Question Reason Comments Established Patient Rectal Pain Reason Comments disability forms From the [place] Reason Comments Established Patient Reason Comments Return To Work Letter Reason Comments Rectal Pain Reason Comments Established Patient Rectal Pain Reason Comments Ear Problem Feels like fluid in left ear since Sunday. Eyes itching. Drainage irritation in throat. Daughter treated for upper resp Reason Comments Refill Request Reason Comments Eye Problem Right eye drainage x 2 weeks. Blurred vision today. Burning itching. Reason Comments Numbness Left arm x 1 month d ropping things Reason Comments Sore Throat Sore throat, both ea rs have pain more left than right, fever 101.4 then took tylenol, chills, headaches, some nausea, Reason Comments Viral Syndrome Sore throat, fever, hard to breath and swallow. Started sunday Reason Comments Received Outside Medical Records ED [facility], summary imaging 02/24/23 Reason Comments Cough Chest congestion x1 month Reason Comments UTI URI Reason Comments Cough X 3 months back pain right side since Sunday goes up shoulder nausea Reason Comments Orders Reason Comments Results Orders Reason Comments Spirometry Specialty Diagnoses / Procedures Referred By Contac t Referred To Contact [facility] Diagnoses Persistent cough for 3 weeks or longer Procedures SPIROMETRY - BASELINE AND POST DILATOR BRNCDILAT RSPSE SPMTRY PRE&POST-BRNCDILAT ADMN John Sanchez APRN.CAKE PUNCHER [address] [facility] [place] [address] Res[facility] [address] [address] [place] [address] Referral ID Status Reason Start Date Expiration Date V isits Requested Visits Authorized [id number] Closed Auto-Generate d Referral 08/23/2023 07/15/2024 1 1 Reason Comments Received Outside Medical Records [facility] ED 12/25 Reason Comments Received Outside Medical Records [facility] ED Reason Comments Vaginal Problem itching and burning, on pcn for 2 weeks for dental issues Reason Comments Results BV+ Reason Comments Follow Up More frequent hiatal hernia symptoms upset stomach nausea Reason Comments Results Orders Reason Comments Anemia Specialty Diagnoses / Procedures Referred By Contac t Referred To Contact Hematology Diagnoses Anemia, unspecified type Procedures CONSULT TO HEMATOLOGY OFFICE/OUTPATIENT [facility] 60 MINUTES John Giles, JOSE.CAKE PUNCHER [address] [facility] [place] [address] Referral ID Status Reason Start Date Expiration Date V isits Requested Visits Authorized [id number] Closed PCP Requested Referral 07/30/2024 07/30/2025 1 1 Reason Comments Appointment Reason Comments Non-Chemotherapy Treatment Specialty Diagnoses / Procedures Referred By Contac t Referred To Contact Diagnoses Iron deficiency anemia due to chronic blood loss Procedures IRON SUCROSE INJECTION PER 1 MG Hill Mendoza APRN.CAKE PUNCHER [address] [place] [address] [facility] [address] [place] [address] Referral ID Status Reason Start Date Expiration Date V isits Requested Visits Authorized [id number] Authorized 08/01/2024 07/15/2025 0 99 Specialty Diagnoses / Procedures Referred By Contac t Referred To Contact Diagnoses Iron deficiency anemia due to chronic blood loss Procedures IRON SUCROSE INJECTION PER 1 MG Hill Mendoza APRN.CAKE PUNCHER [address] [place] [address] Phone: tel: fax: Hematology/[place] [address] [place] [address] Phone: tel: fax: Reason Comments Heel Pain Left worse then righ t. X 3 months Specialty Diagnoses / Procedures Referred By Cory mitchell Referred To Contact Diagnoses Iron deficiency anemia due to chronic blood loss Procedures IRON SUCROSE INJECTION PER 1 MG Hill Mendoza, MASTER AUTOMOTIVE TECHNICIAN.CAKE P[employer]CHER [address] [place] [address] Phone: tel: fax: Hill Mendoza, MASTER AUTOMOTIVE TECHNICIAN.CAKE P[employer]CHER [address] [place] [address] Phone: tel: fax: Referral ID Status Reason Start Date Expiration Date V isits Requested Visits Authorized [id number] Authorized 10/21/2024 07/15/2025 99 99 Reason Comments GERD Hiatal Hernia Reason Comments New Patient Reason Comments Recheck Gerd; EGD completed Reason Comments Weight Problem Reason Comments Procedure Care Teams (unrecognized sec tion and content) Occupational Health Technician Relationship Specialty Start Date End Date Laney Hunter MD [address] [place] [address] [address] [place], [place] [id number] PCP - General Family Practice 03/15/18 Pcp, No Family Practice 01/04/15 Occupational Health Technician Relationship Specialty Start Date End Date Laney Hunter MD [address] [place] [address] [address] [place], [place] [id number] PCP - General Family Practice 03/15/18 Pcp, No Family Practice 01/04/15 Occupational Health Technician Relationship Specialty Start Date End Date Laney Hunter MD [address] [place] [address] [address] [place], [place] [id number] PCP - General Family Practice 03/15/18 Pcp, No Family Practice 01/04/15 Occupational Health Technician Relationship Specialty Start Date End Date Laney Hunter MD [address] [facility] [address] [place], [place] [address] PCP - General Family Practice 03/15/18 Pcp, No Family Practice 01/04/15 Occupational Health Technician Relationship Specialty Start Date End Date Laney Hunter MD [address] [facility] [address] [place], [place] [address] PCP - General Family Practice 03/15/18 Pcp, No Family Practice 01/04/15 Occupational Health Technician Relationship Specialty Start Date End Date Laney Hunter MD [address] [facility] [place] [address] PCP - General Family Practice 03/15/18 Pcp, No Family Practice 01/04/15 Occupational Health Technician Relationship Specialty Start Date End Date Laney Hunter MD [address] [facility] [place] [address] PCP - General Family Practice 03/15/18 Pcp, No Family Practice 01/04/15 Occupational Health Technician Relationship Specialty Start Date End Date Laney Hunter MD [address] [facility] [place] [address] PCP - General Family Practice 03/15/18 Pcp, No Family Practice 01/04/15 Occupational Health Technician Relationship Specialty Start Date End Date Laney Hunter MD [address] [facility] [place] [address] PCP - General Family Practice 03/15/18 Pcp, No Family Practice 01/04/15 Occupational Health Technician Relationship Specialty Start Date End Date Laney Hunter MD [address] [facility] [place] [address] PCP - General Family Practice 03/15/18 Pcp, No Family Practice 01/04/15 Occupational Health Technician Relationship Specialty Start Date End Date Laney Hunter MD [address] [facility] [place] [address] PCP - General Family Practice 03/15/18 Pcp, No Family Practice 01/04/15 Occupational Health Technician Relationship Specialty Start Date End Date Laney Hunter MD [address] [facility] [place] [address] PCP - General Family Practice 03/15/18 Pcp, No Family Practice 01/04/15 Occupational Health Technician Relationship Specialty Start Date End Date Laney Hunter MD [address] [facility] [place] [address] PCP - General Family Medicine 03/15/18 Pcp, No Family Medicine 01/04/15 Occupational Health Technician Relationship Specialty Start Date End Date Laney Hunter MD [address] [facility] [place] [address] PCP - General Family Medicine 03/15/18 Pcp, No Family Medicine 01/04/15 Occupational Health Technician Relationship Specialty Start Date End Date Laney Hunter MD [address] [facility] [place] [address] PCP - General Family Medicine 03/15/18 Pcp, No Family Medicine 01/04/15 Occupational Health Technician Relationship Specialty Start Date End Date Laney Hunter MD [address] [facility] [place] [address] PCP - General Family Medicine 03/15/18 Pcp, No Family Medicine 01/04/15 Occupational Health Technician Relationship Specialty Start Date End Date Laney Hunter MD [address] [facility] [place] [address] PCP - General Family Medicine 03/15/18 Pcp, No Family Medicine 01/04/15 Occupational Health Technician Relationship Specialty Start Date End Date Laney Hunter MD [address] [facility] [place] [address] PCP - General Family Medicine 03/15/18 Pcp, No Family Medicine 01/04/15 Occupational Health Technician Relationship Specialty Start Date End Date Laney Hunter MD [address] [facility] [address] [place], [place] [address] PCP - General Family Medicine 03/15/18 Pcp, No Family Medicine 01/04/15 Occupational Health Technician Relationship Specialty Start Date End Date Laney Hunter MD [address] [facility] [place] [address] PCP - General Family Medicine 03/15/18 Pcp, No Family Medicine 01/04/15 Occupational Health Technician Relationship Specialty Start Date End Date Laney Hunter MD [address] [facility] [place] [address] PCP - General Family Medicine 03/15/18 Pcp, No Family Medicine 01/04/15 Occupational Health Technician Relationship Specialty Start Date End Date Laney Hunter MD [address] [facility] [place] [address] PCP - General Family Medicine 03/15/18 Pcp, No Family Medicine 01/04/15 Team Status: Active Member Role Status Dates No Primary Care Physician Family Provider Active Dr. Richard Hunter MD Primary Care Provider Active Team Status: Inactive Member Role Status Dates Dr. Richard Hunter MD Primary Care Provider Active Dr. Filipe Borja DO Emergency Provider Active Occupational Health Technician Relationship Specialty Start Date End Date Laney Hunter MD [address] [facility] [place] [address] PCP - General Family Medicine 03/15/18 Pcp, No, MASTER AUTOMOTIVE TECHNICIAN Family Medicine 01/04/15 Occupational Health Technician Relationship Specialty Start Date End Date Laney Hunter MD [address] [facility] [address] [place], [place] [address] PCP - General Family Medicine 03/15/18 Pcp, No, MASTER AUTOMOTIVE TECHNICIAN Family Medicine 01/04/15 Occupational Health Technician Relationship Specialty Start Date End Date Laney Hunter MD [address] [facility] [place] [address] PCP - General Family Medicine 03/15/18 Pcp, No, MASTER AUTOMOTIVE TECHNICIAN Family Medicine 01/04/15 Occupational Health Technician Relationship Specialty Start Date End Date Laney Hunter MD [address] [facility] [place] [address] PCP - General Family Medicine 03/15/18 Pcp, No, MASTER AUTOMOTIVE TECHNICIAN Family Medicine 01/04/15 Occupational Health Technician Relationship Specialty Start Date End Date Laney Hunter MD [address] [facility] [place] [address] PCP - General Family Medicine 03/15/18 Pcp, No, MASTER AUTOMOTIVE TECHNICIAN Family Medicine 01/04/15 Occupational Health Technician Relationship Specialty Start Date End Date Laney Hunter MD [address] [facility] [place] [address] PCP - General Family Medicine 03/15/18 Pcp, No, MASTER AUTOMOTIVE TECHNICIAN Family Medicine 01/04/15 Occupational Health Technician Relationship Specialty Start Date End Date Laney Hunter MD [address] [facility] [place] [address] PCP - General Family Medicine 03/15/18 Pcp, No, MASTER AUTOMOTIVE TECHNICIAN Family Medicine 01/04/15 Occupational Health Technician Relationship Specialty Start Date End Date Laney Hunter MD [address] [facility] [place] [address] PCP - General Family Medicine 03/15/18 Pcp, No, MASTER AUTOMOTIVE TECHNICIAN Family Medicine 01/04/15 Occupational Health Technician Relationship Specialty Start Date End Date Laney Hunter MD [address] [facility] [place] [address] PCP - General Family Medicine 03/15/18 Pcp, No, MASTER AUTOMOTIVE TECHNICIAN Family Medicine 01/04/15 Occupational Health Technician Relationship Specialty Start Date End Date Laney Hunter MD [address] [facility] [place] [address] PCP - General Family Medicine 03/15/18 Pcp, No, MASTER AUTOMOTIVE TECHNICIAN Family Medicine 01/04/15 Occupational Health Technician Relationship Specialty Start Date End Date Laney Hunter MD [address] [facility] [place] [address] PCP - General Family Medicine 03/15/18 Pcp, No, MASTER AUTOMOTIVE TECHNICIAN Family Medicine 01/04/15 Occupational Health Technician Relationship Specialty Start Date End Date Laney Hunter MD [address] [facility] [place] [address] PCP - General Family Medicine 03/15/18 Pcp, No, MASTER AUTOMOTIVE TECHNICIAN Family Medicine 01/04/15 Occupational Health Technician Relationship Specialty Start Date End Date Laney Hunter MD [address] [facility] [place] [address] PCP - General Family Medicine 03/15/18 Pcp, No, MASTER AUTOMOTIVE TECHNICIAN Family Medicine 01/04/15 Occupational Health Technician Relationship Specialty Start Date End Date Laney Hunter MD [address] [facility] [place] [address] PCP - General Family Medicine 03/15/18 Pcp, No, MASTER AUTOMOTIVE TECHNICIAN Family Medicine 01/04/15 Occupational Health Technician Relationship Specialty Start Date End Date Laney Hunter MD [address] [facility] [place] [address] PCP - General Family Medicine 03/15/18 Pcp, No, MASTER AUTOMOTIVE TECHNICIAN Family Medicine 01/04/15 Occupational Health Technician Relationship Specialty Start Date End Date Laney Hunter MD [address] [facility] [address] [place], [place] [address] PCP - General Family Medicine 03/15/18 Pcp, No, MASTER AUTOMOTIVE TECHNICIAN Family Medicine 01/04/15 John Giles APRN.CAKE PUNCHER [address] [facility] [place] [address] Soda Jerker Internal Medicine 06/22/24 Occupational Health Technician Relationship Specialty Start Date End Date Laney Hunter MD [address] [facility] [place] [address] PCP - General Family Medicine 03/15/18 Pcp, No, MASTER AUTOMOTIVE TECHNICIAN Family Medicine 01/04/15 John Giles APRN.CAKE PUNCHER [address] [facility] [place] [address] Soda Jerker Internal Medicine 06/22/24 Occupational Health Technician Relationship Specialty Start Date End Date Laney Hunter MD [address] [facility] [place] [address] PCP - General Family Medicine 03/15/18 Pcp, No, MASTER AUTOMOTIVE TECHNICIAN Family Medicine 01/04/15 John Giles APRN.CAKE PUNCHER [address] [facility] [place] [address] Soda Jerker Internal Medicine 06/22/24 Occupational Health Technician Relationship Specialty Start Date End Date Laney Hunter MD [address] [facility] [place] [address] PCP - General Family Medicine 03/15/18 Pcp, No, MASTER AUTOMOTIVE TECHNICIAN Family Medicine 01/04/15 John Giles APRN.CAKE PUNCHER [address] [facility] [address] [place], [place] [address] Soda Jerker Internal Medicine 06/22/24 Occupational Health Technician Relationship Specialty Start Date End Date Laney Hunter MD [address] [facility] [place] [address] PCP - General Family Medicine 03/15/18 Pcp, No, MASTER AUTOMOTIVE TECHNICIAN Family Medicine 01/04/15 John Giles APRN.CAKE PUNCHER [address] [facility] [address] [place], [place] [address] Soda Jerker Internal Medicine 06/22/24 Occupational Health Technician Relationship Specialty Start Date End Date Laney Hunter MD [address] [facility] [place] [address] PCP - General Family Medicine 03/15/18 Pcp, No, MASTER AUTOMOTIVE TECHNICIAN Family Medicine 01/04/15 John Giles MASTER AUTOMOTIVE TECHNICIAN.CAKE PUNCHER [address] [facility] [address] [place], [place] [address] Soda Jerker Internal Medicine 06/22/24 Occupational Health Technician Relationship Specialty Start Date End Date Laney Hunter MD [address] [facility] [address] [place], [place] [address] PCP - General Family Medicine 03/15/18 Pcp, No, MASTER AUTOMOTIVE TECHNICIAN Family Medicine 01/04/15 John Giles APRN.CAKE PUNCHER [address] [facility] [address] [place], [place] [address] Soda Jerker Internal Medicine 06/22/24 Occupational Health Technician Relationship Specialty Start Date End Date Laney Hunter MD [address] [facility] [place] [address] PCP - General Family Medicine 03/15/18 PcpSanta APRN Family Medicine 01/04/15 John Giles APRN.CAKE PUNCHER [address] [facility] [place] [address] Soda Jerker Internal Medicine 06/22/24 Occupational Health Technician Relationship Specialty Start Date End Date Laney Hunter MD [address] [facility] [place] [address] PCP - General Family Medicine 03/15/18 PcpSanta MASTER AUTOMOTIVE TECHNICIAN Family Medicine 01/04/15 John Giles MASTER AUTOMOTIVE TECHNICIAN.CAKE PUNCHER [address] [facility] [place] [address] Soda Jerker Internal Medicine 06/22/24 Occupational Health Technician Relationship Specialty Start Date End Date Laney Hunter MD [address] [facility] [place] [address] PCP - General Family Medicine 03/15/18 Santa Robertson MASTER AUTOMOTIVE TECHNICIAN Family Medicine 01/04/15 John Giles, MASTER AUTOMOTIVE TECHNICIAN.CAKE PUNCHER [address] [facility] [place] [address] Soda Jerker Internal Medicine 06/22/24 Occupational Health Technician Relationship Specialty Start Date End Date Laney Hunter MD [address] [facility] [place] [address] PCP - General Family Medicine 03/15/18 PcpSanta MASTER AUTOMOTIVE TECHNICIAN Family Medicine 01/04/15 John Giles MASTER AUTOMOTIVE TECHNICIAN.CAKE PUNCHER [address] [facility] [place] [address] Soda Jerker Internal Medicine 06/22/24 Occupational Health Technician Relationship Specialty Start Date End Date Laney Hunter MD [address] [facility] [place] [address] PCP - General Family Medicine 03/15/18 PcpSanta MASTER AUTOMOTIVE TECHNICIAN Family Medicine 01/04/15 John Giles MASTER AUTOMOTIVE TECHNICIAN.CAKE PUNCHER [address] [facility] [place] [address] Soda Jerker Internal Medicine 06/22/24 Occupational Health Technician Relationship Specialty Start Date End Date Laney Hunter MD [address] [facility] [place] [address] PCP - General Family Medicine 03/15/18 PcpSanta, MASTER AUTOMOTIVE TECHNICIAN Family Medicine 01/04/15 John Giles, MASTER AUTOMOTIVE TECHNICIAN.CAKE PUNCHER [address] [facility] [place] [address] Soda Jerker Internal Medicine 06/22/24 Occupational Health Technician Relationship Specialty Start Date End Date Laney Hunter MD [address] [facility] [place] [address] PCP - General Family Medicine 03/15/18 PcpSanta MASTER AUTOMOTIVE TECHNICIAN Family Medicine 01/04/15 John Giles MASTER AUTOMOTIVE TECHNICIAN.CAKE PUNCHER [address] [facility] [place] [address] Soda Jerker Internal Medicine 06/22/24 Occupational Health Technician Relationship Specialty Start Date End Date Laney Hunter MD [address] [facility] [place] [address] PCP - General Family Medicine 03/15/18 Santa Robertson APRN Family Medicine 01/04/15 John Giles APRN.CAKE PUNCHER [address] [facility] [place] [address] Soda Jerker Internal Medicine 06/22/24 Occupational Health Technician Relationship Specialty Start Date End Date Laney Hunter MD [address] [facility] [place] [address] PCP - General Family Medicine 03/15/18 PcpSanta APRN Family Medicine 01/04/15 John Giles APRN.CAKE PUNCHER [address] [facility] [place] [address] Soda Jerker Internal Medicine 06/22/24 Occupational Health Technician Relationship Specialty Start Date End Date Laney Hunter MD [address] [facility] [place] [address] PCP - General Family Medicine 03/15/18 PcpSanta APRN Family Medicine 01/04/15 John Giles MASTER AUTOMOTIVE TECHNICIAN.CAKE PUNCHER [address] [facility] [place] [address] Soda Jerker Internal Medicine 06/22/24 Occupational Health Technician Relationship Specialty Start Date End Date Laney Hunter MD [address] [facility] [place] [address] PCP - General Family Medicine 03/15/18 PcpSanta MASTER AUTOMOTIVE TECHNICIAN Family Medicine 01/04/15 John Giles APRN.CAKE PUNCHER [address] [facility] [place] [address] Soda Jerker Internal Medicine 06/22/24 Occupational Health Technician Relationship Specialty Start Date End Date Laney Hunter MD [address] [facility] [place] [address] PCP - General Family Medicine 03/15/18 PcpSanta, MASTER AUTOMOTIVE TECHNICIAN Family Medicine 01/04/15 John Giles MASTER AUTOMOTIVE TECHNICIAN.CAKE PUNCHER [address] [facility] [place] [address] Soda Jerker Internal Medicine 06/22/24 Occupational Health Technician Relationship Specialty Start Date End Date Laney Hunter MD [address] [facility] [place] [address] PCP - General Family Medicine 03/15/18 PcpSanta, MASTER AUTOMOTIVE TECHNICIAN Family Medicine 01/04/15 John Giles, MASTER AUTOMOTIVE TECHNICIAN.CAKE PUNCHER [address] [facility] [place] [address] Soda Jerker Internal Medicine 06/22/24 Occupational Health Technician Relationship Specialty Start Date End Date Laney Hunter MD [address] [facility] [place] [address] PCP - General Family Medicine 03/15/18 PcpSanta, MASTER AUTOMOTIVE TECHNICIAN Family Medicine 01/04/15 John Giles, MASTER AUTOMOTIVE TECHNICIAN.CAKE PUNCHER [address] [facility] [place] [address] Soda Jerker Internal Medicine 06/22/24 Occupational Health Technician Relationship Specialty Start Date End Date Laney Hunter MD [address] [facility] [place] [address] PCP - General Family Medicine 03/15/18 PcpSanta, MASTER AUTOMOTIVE TECHNICIAN Family Medicine 01/04/15 John Giles, MASTER AUTOMOTIVE TECHNICIAN.CAKE PUNCHER [address] [facility] [address] [place], [place] [address] Soda Jerker Internal Medicine 06/22/24 Occupational Health Technician Relationship Specialty Start Date End Date Laney Hunter MD [address] [facility] [place] [id number] PCP - General Family Medicine 03/15/18 PcpSanta, MASTER AUTOMOTIVE TECHNICIAN Family Medicine 01/04/15 John Giles, MASTER AUTOMOTIVE TECHNICIAN.CAKE P[employer]CHER [address] [facility] [address] [place], [place] [id number] [employer]ker Internal Medicine 06/22/24 Team Status: Active Member Role/Relationship Status Dates Dr. Richard Hunter MD Primary Care Provider Active Team Status: Active Member Role/Relationship Status Dates Dr. Richard Hunter MD Primary Care Provider Active Start: March 12, 2025 Dr. Irena Ambriz MD Emergency Provider Active S tart: March 12, 2025 Dr. Micky Justin MD Admit Provider Active St art: March 12, 2025 Dr. Micky Justin MD Attending Provider Active Start: March 12, 2025 Team Status: Active Member Role/Relationship Status Dates Dr. Richard Hunter MD Primary Care Provider Active Start: March 12, 2025 Dr. Irena Ambriz MD Emergency Provider Active S tart: March 12, 2025 Dr. Micky Justin MD Attending Provider Active Start: March 12, 2025 FOR RECORDS PERTAINING TO PATIENTS WHO ARE OR HAVE BEEN ENROLLED IN A CHEMICAL DEPENDENCY/SUBSTANCEABUSE PROGRAM, SOME INFORMATION MAY BE OMITTED. This clinical summary was aggregated from multiple sources. Caution should be exercised in using it in the provision of clinical care. This summary normalizes information from multiple sources, and as a consequence, information in this document may materially change the coding, format and clinical context of patient data. In addition, data may be omitted in some cases. CLINICAL DECISIONS SHOULD BE BASED ON THE PRIMARY CLINICAL RECORDS. [facility]. provides no warranty or guarantee of the accuracy or completeness of information in this document.
[2025-03-12] MEDS: Dextrose 5%/0.9% NaCl 1,000 ML 100 ML IV (19:51)
--- NOTE | 2025-03-12 20:59 | POSTOPAN2_ITS ---
Anesthesia Postop Eval I Sum Postop Eval Completion status Anesthesia document: Postop Eval 1 completed: Yes Anesthesia Postop Eval I Summary Anesthesia Postop Eval I Summary: Anesthesia Postop Eval I: Assessment Summary Airway patent Yes 03/12/25 15:16 [email or web address] Spontaneous unlabored Yes 03/12/25 15:16 [email or web address] respirations Mental status nausea No 03/12/25 15:16 [email or web address] Vomiting No 03/12/25 15:16 [email or web address] Anesthesia Postop Eval I: Fluid Summary Crystalloid volume administer 1,200 03/12/25 15:16 [email or web address] (ml) Colloids volume administered ( ml) Blood Product volume administered (ml) Total IV fluid infused 1,200 03/12/25 15:16 [email or web address] Anesthesia Postop Eval I: Summary Notes Anesthesia Complication No 03/12/25 15:16 [email or web address] Anesthesia Complication Comment: Post-operative progress note Anesthesia: Postop Eval II Evaluation Mental status: Awake and Calm Pain Level: 1 nausea: No Vomiting: No Complications Anesthesia Complication: No
--- NOTE | 2025-03-12 20:59 | PCM.POSTANE2 ---
Anesthesia Postop Eval I Sum Postop Eval Completion status Anesthesia document: Postop Eval 1 completed: Yes Anesthesia Postop Eval I Summary Anesthesia Postop Eval I Summary: Anesthesia Postop Eval I: Assessment Summary Airway patent Yes 03/12/25 15:16 [email or web address] Spontaneous unlabored Yes 03/12/25 15:16 [email or web address] respirations Mental status nausea No 03/12/25 15:16 [email or web address] Vomiting No 03/12/25 15:16 [email or web address] Anesthesia Postop Eval I: Fluid Summary Crystalloid volume administer 1,200 03/12/25 15:16 [email or web address] (ml) Colloids volume administered ( ml) Blood Product volume administered (ml) Total IV fluid infused 1,200 03/12/25 15:16 [email or web address] Anesthesia Postop Eval I: Summary Notes Anesthesia Complication No 03/12/25 15:16 [email or web address] Anesthesia Complication Comment: Post-operative progress note Anesthesia: Postop Eval II Evaluation Mental status: Awake and Calm Pain Level: 1 nausea: No Vomiting: No Complications Anesthesia Complication: No
[2025-03-12] MEDS: 0.9% Saline Lock 10 ML Syringe IV (22:05)
[2025-03-13 03:25] VITALS: BP 102/62; PULSE 65; RESP 18; TEMP 36.4; O2SAT 97
[2025-03-13] MEDS: Dextrose 5%/0.9% NaCl 1,000 ML 100 ML IV (05:46)
[2025-03-13] MEDS: Piperacil/Tazobactam 3.375 GM in 0.9% Normal Saline (50mL MB+) 50 ML IV (05:46)
[2025-03-13 05:54] VITALS: BP 101/66; PULSE 61; RESP 16; TEMP 36.3; O2SAT 97
[2025-03-13 08:00] VITALS: BP 100/69; PULSE 66; RESP 18; TEMP 36.5; O2SAT 96
[2025-03-13 08:23] VITALS: BP 106/72; PULSE 65; RESP 16; TEMP 36.3; O2SAT 97
[2025-03-13] MEDS: Nicotine (PBKC) 21 MG Patch TD (08:48)
--- NOTE | 2025-03-13 11:27 | PCM.PN.SRG ---
Subjective Subjective Patient seen and evaluated on rounds this morning. Patient complains of mild incisional pain as well as pain in the right shoulder. The original right lower quadrant pain that she presented with has resolved since surgery. Pain medication seems to be helping with her incisional pain. Patient also complaining of reflux even despite Tums and antiacid therapy Objective Data Objective Data Vital Signs: Vital Signs Temp Pulse Resp BP Pulse Ox O2 Del Method 97.3 F L 65 16 106/72 97 Room Air 03/13/25 08:23 03/13/25 08:23 03/13/25 08:23 03/13/25 08:23 03/13/25 08:23 03/13/25 08:23 Oxygen Delivery Method Room Air Weight: 224 lb 10.417 oz Body Mass Index (BMI) 37.3 Intake & Output: Intake and Output for Last 24 Hours 03/11/25 03/12/25 03/13/25 23:59 23:59 23:59 Intake Total 200 / 420 1661.67 / 1661.67 Output Total 5 / 5 Balance 195 / 415 1661.67 / 1661.67 Lab / Micro Data 03/12/25 09:20 03/12/25 09:20 Labs: Laboratory Results - last 24 hr 03/12/25 12:42: Urine Test Negative Physical Exam Narrative She is alert and oriented x 3. She is in no acute distress. Abdomen is soft and nondistended. Seems to have appropriate level of postoperative tenderness Incisions clean dry and intact. Assessment & Plan Assessment/Plan (1) Appendicitis: PLAN: Plan The patient is a 39-year-old female who is postoperative day #1 from a laparoscopic appendectomy. She seems to be doing appropriately well following her surgery. Her right lower quadrant has resolved. We have encouraged her to be up and ambulating as this will improve her insufflation gas pain. Would advise discharge to home later today. She is agreeable to this plan. Follow-up will be in about 2 weeks.
--- NOTE | 2025-03-13 11:30 | PCM.DC.SUM ---
Providers Date of Admission: 03/12/25 Date of Discharge: 03/13/25 Primary Care Physician: Dr. Richard Orozco MD Reason For Visit: APPENDICITIS Diagnosis Discharge Diagnosis (1) Appendicitis: Status: Acute Code(s): K37 - Unspecified appendicitis Plan The patient is a 39-year-old female who is postoperative day #1 from a laparoscopic appendectomy. She seems to be doing appropriately well following her surgery. Her right lower quadrant has resolved. We have encouraged her to be up and ambulating as this will improve her insufflation gas pain. Would advise discharge to home later today. She is agreeable to this plan. Follow-up will be in about 2 weeks. Medications at Discharge Home Medications duloxetine 20 mg capsule,delayed release (Cymbalta) 20 mg PO DAILY 12/02/20 dupilumab 300 mg/2 mL subcutaneous pen injector (Dupixent) 300 mg subcut QWEEK 12/02/20 naproxen 500 mg tablet (Naprosyn) 500 mg PO BID #20 tabs 12/02/20 omeprazole magnesium 20 mg tablet,delayed release (Prilosec OTC) 20 mg PO DAILY 12/02/20 cholecalciferol (vitamin D3) 1,250 mcg (50,000 unit) oral wafer 50,000 unit PO QWEEK 03/12/25 cyanocobalamin (vitamin B-12) 1,000 mcg tablet (Vitamin B-12) 1,000 mcg PO DAILY 03/12/25 oxycodone-acetaminophen 7.5 mg-325 mg tablet (Percocet) 1 tab PO Q8H PRN pain 4 days #12 tabs 03/13/25 Hospital Course Operations appendectomy Summary of Care Provided Minutes Spent on Discharge: 15 Hospital Course: The patient is a 39-year-old female who presented to the emergency department with right lower quadrant pain and low-grade fevers. Pain began periumbilically and migrated to the right lower quadrant she presented to the emergency department where a CT scan was performed. This showed appendix towards the upper limit of normal but there was no surrounding inflammation. Clinically her presentation was consistent with appendicitis and so I offered her a diagnostic laparoscopy/lap appendectomy. She did well postoperatively. She complains of some reflux which seems to be improving. Physical Exam Const alert, oriented x3 and no apparent distress Weight / BMI Weight Weight: 224 lb 10.417 oz Body Mass Index (BMI) 37.3 ABG / Lab / Microbiology Data 03/12/25 09:20 03/12/25 09:20 Laboratory: Laboratory Results - last 24 hr 03/12/25 12:42: Urine Test Negative D/C Instructions Discharge Activity: May Shower May shower in (days): 1 Lifting Restrictions: No lifting pushing or pulling more than 20 pounds for approximately 4 weeks Call your doctor if your incision/area has: Continuous Slow Oozing, Sudden Increased Bleeding, Increased Pain/ Swelling, Increased Redness, Foul Smelling Discharge and Swelling at the incision site Call your doctor if you observe: Fever of 101 or Higher Cleanse incision/area with: Soap & Water DC O2, CPAP, BIPAP Needs Home O2 Discharge instructions: No Please Follow Up With: Micky Justin MD When: 2 weeks Meaningful Use Info Meaningful Use Meaningful Use Diagnoses (Choose all that apply): None applicable Discharge Plan Admission Admit Date/Time: 03/12/25 11:35 Primary Reason for Your Visit: Acute appendicitis Attending Provider: Micky Justin Primary Care Provider: Richard Orozco Discharge Orders/Prescriptions Prescriptions: New oxycodone-acetaminophen [Percocet] 7.5-325 mg tablet 1 tab PO Q8H PRN (Reason: pain) 4 Days Qty: 12 0RF Continued omeprazole magnesium [Prilosec OTC] 20 mg tablet,delayed release (DR/EC) 20 mg PO DAILY Patient Comments: TAKE 1 TABLET BY MOUTH ONCE DAILY duloxetine [Cymbalta] 20 mg Capsule,Delayed Release(Dr/Ec) 20 mg PO DAILY Dupixent Pen 300 mg/2 mL Pen Injector 300 mg SUBCUT QWEEK Rx Instructions: EVERY OTHER WEEK naproxen [Naprosyn] 500 mg tablet 500 mg PO BID Qty: 20 0RF cholecalciferol (vitamin D3) 1,250 mcg (50,000 unit) wafer 50,000 unit PO QWEEK cyanocobalamin (vitamin B-12) [Vitamin B-12] 1,000 mcg tablet 1,000 mcg PO DAILY Referrals / Follow Up: Richard Orozco MD [Primary Care Provider] - Disposition Disposition (needs filled in before D/C Order can be placed): Home, Self Care
[2025-03-13 13:40] VITALS: BP 122/88; PULSE 64; RESP 15; TEMP 36.9; O2SAT 99
== END 2025-03-13 13:47 | disposition home or self-care (01) ==
LOC: ED 11:41 → MS3 12:07
PROVIDERS: Admitting Provider Surgery; Emergency Provider Student in an Organized Health Care Education/Training Program; PCP Family Medicine; Visit Provider Surgery
PROC: 0DTJ4ZZ Resection of Appendix, Percutaneous Endoscopic Approach (ICD-10-PCS; CPT 44970; principal; 2025-03-12 14:40)
DX: K35.80 Unspecified acute appendicitis (principal); K66.0 Peritoneal adhesions (postprocedural) (postinfection); M79.7 Fibromyalgia; K21.9 Gastro-esophageal reflux disease without esophagitis; R35.0 Frequency of micturition; Z79.899 Other long term (current) drug therapy
CPT/HCPCS: 44970; 00840; 74177; 80053; 81001; 81025; 83690; 85025; 88304; 96361; 96365; 96366; 96375; 96376; 99221; 99284; Q9967; A4216; G0378; J0696; J2405